=== PATIENT | female | born 1955 | race Caucasian/White ===

== ENCOUNTER → 2016-05-01 | Outpatient (CLI) | payer OTHER ==
--- NOTE | 2016-05-02 07:15 | WWHP ---
DATE OF SERVICE: 05/01/2016 CHIEF COMPLAINT: The patient is here for her routine gynecologic exam and mammogram. HPI: This is a 60-year-old, G2, P2 with an LMP of approximately 1999. The patient states it has been about 15 years since her last pelvic exam. She denies any postmenopausal bleeding. She has been experiencing slight dysuria with some urinary frequency and some urinary urgency over the past few days. She states the symptoms are not very severe. PAST MEDICAL HISTORY: COPD requiring oxygen and osteoporosis. MEDICATIONS: 1. Boniva one monthly. 2. Metoprolol tartrate 25 mg b.i.d. 3. Bupropion SR 150 mg b.i.d. 4. Montelukast 10 mg daily. 5. Alprazolam 0.25 mg q.i.d. p.r.n. 6. Brovana inhaler b.i.d. 7. Budesonide inhaler b.i.d. 8. Ipratropium inhaler b.i.d. 9. Boniva one q month 10. Spiriva, ProAir as directed. 11. Prednisone 5 mg every other day. Allergies to PENICILLIN which caused hives. PAST SURGICAL HISTORY: Appendectomy years ago, colonoscopy many years ago. PAST OB HISTORY: Two vaginal deliveries. PAST SHIELD RUNNER HISTORY: She has been menopausal since 1999 and has no history of STDs. SOCIAL HISTORY: She quit smoking in 12/07. She denies alcohol and drug use. She has been twice and is not seeing anybody at this time. 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 She has one granddaughter. FAMILY HISTORY: Father had lung cancer. Mother had breast cancer. Grandfather had colon cancer. Father had an RI. REVIEW OF SYSTEMS: Weight has been stable. She denies respiratory, cardiac or GI problems. : She has been experiencing dysuria, urinary frequency and urgency as above. PHYSICAL EXAM: Blood pressure 92/50. Height 5 feet 2 inches. Weight 116 pounds. Temperature 98.2, pulse 56. This a well-developed, well-nourished white female who is alert and oriented x3 in no acute distress and she does have nasal cannula oxygen. HEENT is within normal limits. NECK: Supple without mass or thyromegaly. CHEST AND LUNGS: Clear to auscultation. HEART: Regular rate and rhythm. Breasts are without mass or discharge. Axillary exam is negative for adenopathy. BACK: Negative for CVA tenderness. ABDOMEN: There is slight increased tone, but the abdomen is nondistended and there are no palpable masses. PELVIC EXAM: External genitalia reveals moderate atrophy without lesions. Cervix and vagina reveal some mild to moderate atrophy without lesions. There is no evidence of prolapse. The uterus is midposition, nongravid size and nontender. There are no palpable adnexal masses or tenderness. Rectovaginal exam is negative for mass or tenderness and is negative for occult blood. EXTREMITIES: Nontender. IMPRESSION: 1. A 60-year-old menopausal female with normal gynecologic exam. 2. Urinary symptoms including mild dysuria, urinary frequency and urgency. Possible urinary tract infection. 3. History of osteoporosis. 4. History of chronic obstructive pulmonary disease requiring oxygen and multiple medications. PLAN: 1. Pap smear was performed. 2. Self breast examination was discussed. 3. Mammogram will be done today. 4. Clean-catch midstream urinalysis and C&S were obtained. 5. I have recommended screening colonoscopy based on her age and she is declining this. 6. Osteoporosis management was discussed. I have stressed the importance of adequate calcium, vitamin D and regular exercise. She will continue the Boniva as prescribed by her other physician. 7. She will return in one year. [place]
--- NOTE | 2016-05-03 10:05 | MM ---
Reason for exam: screening (asymptomatic). Last mammogram was performed 1 year ago. History: Patient is postmenopausal. Family history of breast cancer in mother. Excisional biopsy of the left breast. Physical Findings: A clinical breast exam by your physician is recommended on an annual basis and results should be correlated with mammographic findings. MG 3D Screening Mammo W/Cad Bilateral CC and MLO view(s) were taken. Prior study comparison: April 21, 2015, bilateral MG screening mammo w CAD. The breast tissue is heterogeneously dense. This may lower the sensitivity of mammography. Two areas of nodular asymmetry right CC view seem to have been present on prior but are more defined, probably on a positional basis. A 6 month follow up recommended. ASSESSMENT: Probably benign, BI-RAD 3 RECOMMENDATION: Follow-up diagnostic mammogram of the right breast in 6 months.
== END | disposition home or self-care (01) ==
LOC: WWCWWP 14:19
PROVIDERS: ATTEND Obstetrics & Gynecology
DX: Z12.31 Encounter for screening mammogram for malignant neoplasm of breast (principal)
CPT/HCPCS: 77063; G0202

== ENCOUNTER → 2016-07-11 | Outpatient (CLI) | payer OTHER ==
--- NOTE | 2016-07-11 15:29 | CT ---
EXAMINATION TYPE: CT chest wo con DATE OF EXAM: 07/11/2016 2:50 PM COMPARISON: CT chest November 09, [address] April 14, 2015 HISTORY: Follow-up for COPD and solitary pulmonary nodule per order. CT DLP: 113.70 mGycm. Automated Exposure Control for Dose Reduction was Utilized. TECHNIQUE: CT scan of the thorax is performed without IV contrast. FINDINGS: LUNGS: Moderate underlying emphysematous changes redemonstrated. There is persistent linear scarring in the right upper to midlung near axial image 29 redemonstrated. There is additional linear scarring in bilateral lung bases near diaphragm. There is stable 4 mm subpleural nodule in the right lower lo be posteriorly on axial image 53. No new parenchymal nodule or mass is identified bilaterally. No ple ural effusion or pneumothorax is seen. Tracheobronchial tree is patent. MEDIASTINUM: Lack of IV contrast is noted to limit evaluation for mediastinal and especially hilar ad enopathy. There are no definitive greater than 1 cm hilar or mediastinal lymph nodes. No cardiomega ly or pericardial effusion is seen. Coronary artery calcification is present. There is mild to modera te calcified plaque of the aorta extending into branch vessels. There is new moderate sized debris-fi lled hiatal hernia. OTHER: Osseous structures are demineralized. Mild height loss or chronic compression type fracture at T11 level most prominent superior endplate is stable. Heterogeneously dense fibroglandular tissue in both breasts is redemonstrated. Stable subcentimeter hypodense focus anteriorly upper pole level lef t kidney favors proteinaceous cyst on axial image 64. IMPRESSION: Moderate emphysematous change redemonstrated. Stable 4 mm subpleural nodule posterior lat eral right lower lobe strongly favoring postinflammatory etiology. No new mass or adenopathy is prese nt.
== END | disposition home or self-care (01) ==
LOC: RADCTMAIN 14:37
PROVIDERS: ATTEND Internal Medicine Sleep Medicine
DX: R91.1 Solitary pulmonary nodule (principal); J43.9 Emphysema, unspecified
CPT/HCPCS: 71250

== ENCOUNTER 2016-09-03 14:59 | Inpatient (IN) | payer OTHER ==
[2016-09-03] MEDS ORDERED: SODIUM CHLORIDE 0.9% 1,000 ML IV STA ×2 (16:16)
[2016-09-03] MEDS ORDERED: methylPREDNISolone SOD SUCCI 125 MG/2 ML VIAL IV STA (16:16)
[2016-09-03] MEDS ORDERED: IPRATROPIUM 0.5 MG/2.5 ML NEBU INHALATION STA (16:16)
[2016-09-03] MEDS ORDERED: ALBUTEROL NEBULIZED 2.5 MG/3 ML INHALATION STA ×2 (16:16→16:35)
[2016-09-03] MEDS ORDERED: LEVOFLOXACIN 750MG-D5W PMX 750 MG in DEXTROSE/WATER 1 150ML.BAG IVPB STA (16:16)
[2016-09-03] MEDS ORDERED: IPRATROPIUM-ALBUTEROL 3 ML NEB INHALATION STA (16:34)
[2016-09-03 16:39] LABS: Basophils # (A) 0.1 k/uL (0-0.2); Basophils % (A) 0 %; CH 31.8; CHCM 34.6; Eosinophils # (A) 0.2 k/uL (0-0.7); Eosinophils % (A) 1 %; HCT 39.8 % (34.0-46.0); HDW 2.59; HGB 13.7 gm/dL (11.4-16.0); Luc % (Auto) 3; Lymphocytes # (A) 2.4 k/uL (1.0-4.8); Lymphocytes % (A) 17 %; MCH 31.8 pg (25.0-35.0); MCHC 34.4 g/dL (31.0-37.0); MCV 92.3 fL (80.0-100.0); Mean Platelet Volume 7.4; Monocytes # (A) 0.7 k/uL (0-1.0); Monocytes % (A) 5 %; Neutrophils # (A) 10.4 k/uL (1.3-7.7); Neutrophils % (A) 74 %; RBC 4.31 m/uL (3.80-5.40); RDW 13.5 % (11.5-15.5); WBC 14.1 k/uL (3.8-10.6); WBC (Perox) 13.99
--- NOTE | 2016-09-03 16:44 | ED ---
General Adult HPI - General Chief complaint: Shortness of Breath Stated complaint: poss upper respiratory infection Time Seen by Provider: 09/03/16 16:00 Source: patient, RN notes reviewed, old records reviewed Mode of arrival: wheelchair Limitations: no limitations - History of Present Illness Initial comments: This is a 61-year-old female here for evaluation of shortness of breath cough and congestion. Severe history of COPD with multiple hospital admissions for COPD and pneumonia, patient denies continuing to smoke, was admitted for COPD and pneumonia about 4 months ago. Patient has low-grade fever at home no chest pain. No travel history no known sick contacts - Related Data Home Medications Medication Instructions Recorded Confirmed Tiotropium [place] [Spiriva 1 cap INHALATION RT-DAILY 12/11/14 09/03/16 Respimat] Arformoterol Tartrate [Brovana] 15 mcg INHALATION RT-BID 04/14/15 09/03/16 buPROPion SR [Wellbutrin Sr] 150 mg PO BID 04/14/15 09/03/16 Albuterol Nebulized [Ventolin 2.5 mg INHALATION RT-BID 05/02/15 09/03/16 Nebulized] ALPRAZolam [Xanax] 0.25 mg PO QID PRN 09/03/16 09/03/16 Albuterol Inhaler [Ventolin Hfa 1 - 2 puff INHALATION RT-QID PRN 09/03/16 Inhaler] Metoprolol Tartrate 25 mg PO BID 09/03/16 09/03/16 predniSONE 5 mg PO Q48H 09/03/16 09/03/16 Previous Rx's Medication Instructions Recorded Budesonide [Pulmicort] 0.5 mg INHALATION RT-BID nebu 12/17/14 Montelukast [Singulair] 10 mg PO HS tab 12/17/14 Allergies Allergy/AdvReac Type Severity Reaction Status Date / Time Penicillins Allergy Rash/Hives Verified 09/03/16 16:31 Review of Systems ROS Statement: Those systems with pertinent positive or pertinent negative responses have been documented in the HPI. ROS Other: All systems not noted in ROS Statement are negative. Past Medical History Past Medical History: COPD, Pneumonia Additional Past Medical History / Comment(s): HOME 02 2 LITERS N/C History of Any Multi-Drug Resistant Organisms: None Reported Past Surgical History: Appendectomy Past Anesthesia/Blood Transfusion Reactions: No Reported Reaction Past Psychological History: Anxiety Smoking Status: Former smoker Past Alcohol Use History: None Reported Additional Past Alcohol Use History / Comment(s): HAS SMOKED X 40 YEARS 2 PPD, QUIT Past Drug Use History: None Reported - Past Family History Mother Family Medical History: Cancer Additional Family Medical History / Comment(s): breast/BLADDER CA Father Family Medical History: Cancer Additional Family Medical History / Comment(s): lung ca, BRAIN TUMORS General Exam Limitations: no limitations General appearance: cachectic Head exam: Present: atraumatic, normocephalic, normal inspection Eye exam: Present: normal appearance, PERRL, EOMI. Absent: scleral icterus, conjunctival injection, periorbital swelling ENT exam: Present: normal exam, mucous membranes moist Neck exam: Present: normal inspection. Absent: tenderness, meningismus, lymphadenopathy Respiratory exam: Present: normal lung sounds bilaterally, wheezes, accessory muscle use, decreased breath sounds, prolonged expiratory. Absent: respiratory distress, rales, rhonchi, stridor Cardiovascular Exam: Present: regular rate, normal rhythm, normal heart sounds. Absent: systolic murmur, diastolic murmur, rubs, gallop, clicks GI/Abdominal exam: Present: soft, normal bowel sounds. Absent: distended, tenderness, guarding, rebound, rigid Extremities exam: Present: normal inspection, full ROM, normal capillary refill. Absent: tenderness, pedal edema, joint swelling, calf tenderness Back exam: Present: normal inspection Neurological exam: Present: alert, oriented X3, CN II-XII intact Psychiatric exam: Present: normal affect, normal mood Skin exam: Present: warm, dry, intact, normal color. Absent: rash Course Vital Signs 09/03/16 09/03/16 09/03/16 15:18 16:08 16:21 Temperature 100.0 F H 100.1 F H Pulse Rate 85 81 Respiratory 24 22 16 Rate Blood Pressure 130/66 137/62 O2 Sat by Pulse 90 L 95 Oximetry 09/03/16 16:38 Temperature Pulse Rate 73 Respiratory Rate Blood Pressure O2 Sat by Pulse Oximetry - Reevaluation(s) Reevaluation #1: 09/03/16 16:44 Patient is having significant improvement with breathing Medical Decision Making - Medical Decision Making 60 dizziness ER for evaluation of severe shortness of breath cough or congestion , COPD exacerbation we'll admit for breathing treatments and monitoring of cardiopulmonary status - Radiology Data Radiology results: report reviewed (Chest x-ray negative for acute disease), image reviewed Disposition Clinical Impression: COPD exacerbation, Acute exacerbation of chronic obstructive airways disease Disposition: ADMITTED IP TO THIS HOSP Condition: Fair Referrals: Kurtis Piña MD [Primary Care Provider] - 1-2 days
[2016-09-03 16:47] LABS: Partial Thromboplastin Time 25.3 sec (22.0-30.0); Prothrombin Time 10.1 sec (9.0-12.0)
[2016-09-03 16:51] LABS: ALT 21 U/L (9-52); AST 20 U/L (14-36); Alkaline Phosphatase 70 U/L (38-126); Anion Gap 10 mmol/L; Blood Urea Nitrogen 17 mg/dL (7-17); Calcium 9.3 mg/dL (8.4-10.2); Carbon Dioxide 26 mmol/L (22-30); Chloride 101 mmol/L (98-107); Glucose 91 mg/dL (74-99); Magnesium 1.6 mg/dL (1.6-2.3); Non-African American GFR(MDRD) >60 (>60 ml/min/1.73 sqM); Potassium 4.2 mmol/L (3.5-5.1); Sodium 137 mmol/L (137-145); Total Bilirubin 0.8 mg/dL (0.2-1.3); Total Protein 6.6 g/dL (6.3-8.2)
[2016-09-03 17:02] LABS: Creatine Kinase 40 U/L (30-135)
[2016-09-03 17:16] LABS: Creatine Kinase MB 0.8 ng/mL (0.0-2.4); Troponin I <0.012 ng/mL (0.000-0.034)
--- NOTE | 2016-09-03 18:02 | XR ---
EXAMINATION TYPE: XR chest 2V DATE OF EXAM: 09/03/2016 COMPARISON: May 04, 2015 HISTORY: Off and congestion TECHNIQUE: Frontal and lateral views of the chest are obtained. FINDINGS: There is redemonstration of the marked emphysematous changes, but no acute pulmonary proce ss is evident. Lungs appear clear bilaterally. Pleural spaces are negative. Cardiomediastinal silhouette and bones and soft tissues are unremarkable. IMPRESSION: No acute process.
[2016-09-03] MEDS: methylPREDNISolone SOD SUCCI 125 MG/2 ML VIAL IV SCH ×2 (18:54→23:40)
[2016-09-03] MEDS: SODIUM CHLORIDE 0.9% 1,000 ML IV SCH (18:54)
[2016-09-03] MEDS ORDERED: ONDANSETRON 4 MG/2 ML VIAL IVP PRN (19:56)
[2016-09-03] MEDS ORDERED: ACETAMINOPHEN TAB 325 MG TAB PO PRN (19:56)
[2016-09-03] MEDS: MONTELUKAST 10 MG TAB PO SCH (20:28)
[2016-09-03] MEDS: buPROPion SR 150 MG TABLET.ER PO SCH (20:28)
[2016-09-03] MEDS: INSULIN LISPRO (humaLOG) 300 UNIT/3 ML VIAL SQ SCH (20:28)
[2016-09-03] MEDS: METOPROLOL TARTRATE 25 MG TAB PO SCH (20:28)
[2016-09-03 20:31] LABS: Glucose,Whole Blood 195 mg/dL (75-99)
[2016-09-03] MEDS: FORMOTEROL FUMARATE 20 MCG/2 ML NEBU INHALATION SCH (20:32)
[2016-09-03] MEDS: IPRATROPIUM-ALBUTEROL 3 ML NEB INHALATION PRN (20:32)
[2016-09-03] MEDS: BUDESONIDE 0.5 MG/2 ML NEBU INHALATION SCH (20:32)
[2016-09-03] MEDS: ALPRAZolam 0.25 MG TAB PO PRN (20:37)
[2016-09-04] MEDS: SODIUM CHLORIDE 0.9% 1,000 ML IV SCH ×3 (02:31→21:41)
[2016-09-04] MEDS: ALPRAZolam 0.25 MG TAB PO PRN ×4 (02:31→20:57)
[2016-09-04] MEDS: IPRATROPIUM-ALBUTEROL 3 ML NEB INHALATION PRN ×5 (03:10→19:03)
[2016-09-04] MEDS: methylPREDNISolone SOD SUCCI 125 MG/2 ML VIAL IV SCH ×3 (06:21→17:50)
[2016-09-04] MEDS: TIOTROPIUM 18 MCG/PUFF INHALER INHALATION SCH (07:19)
[2016-09-04] MEDS: BUDESONIDE 0.5 MG/2 ML NEBU INHALATION SCH ×2 (07:19→19:03)
[2016-09-04] MEDS: FORMOTEROL FUMARATE 20 MCG/2 ML NEBU INHALATION SCH ×2 (07:19→19:03)
[2016-09-04 07:42] LABS: Glucose,Whole Blood 153 mg/dL (75-99)
[2016-09-04] MEDS: ENOXAPARIN 40 MG/0.4 ML SYRINGE SQ SCH (08:09)
[2016-09-04] MEDS: METOPROLOL TARTRATE 25 MG TAB PO SCH ×2 (08:09→20:57)
[2016-09-04] MEDS: buPROPion SR 150 MG TABLET.ER PO SCH ×2 (08:09→20:57)
[2016-09-04] MEDS: INSULIN LISPRO (humaLOG) 300 UNIT/3 ML VIAL SQ SCH ×4 (08:09→20:59)
[2016-09-04] MEDS ORDERED: TEMAZEPAM 15 MG CAP PO PRN (08:46)
--- NOTE | 2016-09-04 08:51 | P.HPIM ---
History of Present Illness H&P Date: 09/04/16 Chief Complaint: Worsening shortness of breath. This is a history and physical on a 61-year-old white female, who has not seen me for about a year and a half but has an underlying history of COPD. The patient has been having difficulty breathing for the last several days. She does follow up with Dr. 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 We will verify this with her old record. Otherwise, she has difficulty with dyspnea and had difficulty sleeping last night. No voiding difficulties. No significant orthopnea or paroxysmal shortness of breath stated last night. Review of Systems Constitutional: Denies chills, Denies fever Eyes: denies blurred vision, denies pain Ears, nose, mouth and throat: Denies headache, Denies sore throat Cardiovascular: Denies chest pain, Denies shortness of breath Respiratory: Reports as per HPI Gastrointestinal: Denies abdominal pain, Denies diarrhea, Denies nausea, Denies vomiting Genitourinary: Denies dysuria, Denies hematuria Musculoskeletal: Denies myalgias Past Medical History Past Medical History: COPD, Osteoarthritis (OA), Pneumonia Additional Past Medical History / Comment(s): HOME 02 2 LITERS N/C, UTI-ECOLI, EDENTULOUS, PAST FX TO A VERTEBRE-SINCE HEALED History of Any Multi-Drug Resistant Organisms: None Reported Past Surgical History: Appendectomy Additional Past Surgical History / Comment(s): LASER EYE SX Past Anesthesia/Blood Transfusion Reactions: No Reported Reaction Past Psychological History: Anxiety Additional Psychological History / Comment(s): PT LIVES WITH HER DAUGHER IN A SINGLE LEVEL HOME THAT HAS 4 PORCH STEPS AND A BASEMENT W/12 STEPS. NO OUTSIDE SERVICES RECIEVED. HAS HOME O2 AND A NEBULIZER. PT IS INDEPENDANT WHEN UP. 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 Smoking Status: Former smoker Past Alcohol Use History: None Reported Additional Past Alcohol Use History / Comment(s): STARTED SMOKING AROUND 1976- 2 PPD, QUIT . Past Drug Use History: None Reported - Past Family History Mother Family Medical History: Cancer Additional Family Medical History / Comment(s): breast/BLADDER CA Father Family Medical History: Cancer Additional Family Medical History / Comment(s): lung ca, BRAIN TUMORS Medications and Allergies Home Medications Medication Instructions Recorded Confirmed Type Tiotropium [place] [Spiriva 1 cap INHALATION RT-DAILY 12/11/14 09/03/16 History Respimat] Arformoterol Tartrate [Brovana] 15 mcg INHALATION RT-BID 04/14/15 09/03/16 History buPROPion SR [Wellbutrin Sr] 150 mg PO BID 04/14/15 09/03/16 History Albuterol Nebulized [Ventolin 2.5 mg INHALATION RT-BID 05/02/15 09/03/16 History Nebulized] ALPRAZolam [Xanax] 0.25 mg PO QID PRN 09/03/16 09/03/16 History Albuterol Inhaler [Ventolin Hfa 1 - 2 puff INHALATION RT-QID PRN 09/03/16 History Inhaler] Metoprolol Tartrate 25 mg PO BID 09/03/16 09/03/16 History predniSONE 5 mg PO Q48H 09/03/16 09/03/16 History Allergies Allergy/AdvReac Type Severity Reaction Status Date / Time Penicillins Allergy Rash/Hives Verified 09/03/16 16:31 Physical Exam Vitals: Vital Signs Temp Pulse Pulse Resp BP BP BP 09/04/16 07:51 92 09/04/16 07:39 90 09/04/16 07:37 92 09/04/16 07:21 98 09/04/16 07:00 96.8 F L 89 22 108/57 09/04/16 03:10 100 09/03/16 22:32 97.0 F L 79 18 115/71 09/03/16 20:54 92 09/03/16 20:46 90 09/03/16 20:45 90 09/03/16 20:36 89 09/03/16 18:36 97.6 F 94 16 124/76 09/03/16 17:26 98.6 F 84 16 115/54 09/03/16 16:38 73 09/03/16 16:21 100.1 F H 81 16 137/62 09/03/16 16:08 22 09/03/16 15:18 100.0 F H 85 24 130/66 Pulse Ox 09/04/16 07:51 09/04/16 07:39 09/04/16 07:37 99 09/04/16 07:21 09/04/16 07:00 99 09/04/16 03:10 09/03/16 22:32 98 09/03/16 20:54 09/03/16 20:46 09/03/16 20:45 09/03/16 20:36 09/03/16 18:36 96 09/03/16 17:26 99 09/03/16 16:38 09/03/16 16:21 95 09/03/16 16:08 09/03/16 15:18 90 L Intake and Output 09/03/16 09/04/16 09/04/16 22:59 06:59 14:59 Intake Total 500 500 Balance 500 500 Intake: Oral 500 500 Other: # Voids 1 2 Weight 53.07 kg - Constitutional General appearance: no acute distress - EENT Eyes: EOMI - Neck Neck: no lymphadenopathy - Respiratory Respiratory: bilateral: diminished - Cardiovascular Rhythm: regular Heart sounds: normal: S1, S2 - Gastrointestinal General gastrointestinal: soft, no tenderness - Integumentary Integumentary: no cellulitis - Psychiatric Psychiatric: A&O x's 3, appropriate affect Results CBC & Chem 7: 09/03/16 15:15 09/03/16 15:15 Labs: Abnormal Lab Results - Last 24 Hours (Table) 09/03/16 09/03/16 09/04/16 Range/Units 15:15 20:27 07:10 WBC 14.1 H (3.8-10.6) k/uL Neutrophils # 10.4 H (1.3-7.7) k/uL POC Glucose (mg/dL) 195 H 153 H (75-99) mg/dL Thrombosis Risk Factor Assmnt - Choose All That Apply Any of the Below Risk Factors Present?: Yes Each Factor Represents 1 point: Abnormal pulmonary function (COPD) Other Risk Factors: Yes Each Risk Factor Represents 2 Points: Age 61-74 years Other congenital or acquired thrombophilia - If yes, enter type in comment: No Thrombosis Risk Factor Assessment Total Risk Factor Score: 3 Thrombosis Risk Factor Assessment Level: Moderate Risk Assessment and Plan (1) Acute exacerbation of chronic obstructive airways disease Status: Acute Plan: We'll go ahead and continue methylprednisone. Consult pulmonology. Restart Levaquin 500 mg by mouth daily. Otherwise, reconcile home medications. The patient states that she takes Boniva. Check CBC, CMP in a.m. See orders otherwise. Time with Patient: Greater than 30
[2016-09-04] MEDS ORDERED: LEVOFLOXACIN 500 MG TAB PO SCH (09:00)
[2016-09-04 11:09] LABS: Hemoglobin A1C 5.9 % (4.2-6.1)
[2016-09-04 12:12] LABS: Glucose,Whole Blood 151 mg/dL (75-99)
[2016-09-04 17:04] LABS: Glucose,Whole Blood 136 mg/dL (75-99)
--- NOTE | 2016-09-04 19:12 | CONS ---
DATE OF CONSULTATION: 09/04/2016 REASON FOR CONSULTATION: Shortness of breath, cough and purulent sputum production. HISTORY OF PRESENT ILLNESS: The patient is a 61 -year-old female who was seen, evaluated and examined on the fourth floor. This patient presented in the Emergency Room Department with increasing shortness of breath, cough and congestion. With those problems which started about several days prior to coming into the hospital. The patient does have history of pneumonia and COPD exacerbation about four months ago. These problems associated with breathing difficulty, came into the Emergency Room Department and was eventually admitted. The patient has chronic hypoxic respiratory failure and has been on home oxygen. PAST MEDICAL HISTORY: Significant for severe COPD, chronic hypoxic respiratory failure, on home oxygen 2 L, history of pneumonia. PAST SURGICAL HISTORY :Appendectomy. FAMILY HISTORY/SOCIAL HISTORY: Smoked two packs per day for about 40 years, still smoking off and on. Denies any substance use or alcohol consumption. ALLERGIES: INCLUDE PENICILLIN. MEDICATIONS: At home include: 1. Singulair 10 mg daily. 2. Pulmicort 0.5 two times a day via nebulizer. 3. Prednisone 5 mg every other day. 4. Metoprolol 25 mg two times a day. 5. Albuterol HFA as needed two puffs four times a day. 6. Ventolin nebulizer four times a day. 7. Brovana 15 mcg two times a day. 8. ( ) 150 mg two times a day. 9. Spiriva once daily. REVIEW OF SYSTEMS: CENTRAL NERVOUS SYSTEM: Denies any loss of consciousness or ( ). CARDIOVASCULAR/RESPIRATORY: Otherwise unremarkable and noncontributory. GI/ GENITOURINARY: Unremarkable and noncontributory. MUSCULOSKELETAL/RHEUMATOLOGY: Unremarkable and noncontributory. FAMILY HISTORY: Significant for breast cancer, bladder cancer on maternal side. History of lung cancer, brain tumor on paternal side. Current medications while in the hospital includes: 1. Tylenol as needed. 2. Duoneb unit dose updraft four times a day. 3. Xanax as needed. 4. Pulmicort two times a day. 5. Wellbutrin 150 mg two times a day. 6. Lovenox 40 mg daily. 7. Perforomist 20 mcg two times a day. 8. Sliding scale insulin. 9. Solu-Medrol 60 q6h. 10. Lopressor 25 mg b.i.d. 11. Singulair 10 mg daily. 12. IV fluids normal saline 100 mL an hour. 13. Restoril 15 mg daily. 14. Spiriva once daily. 15. Bactrim DS one tablet p.o. two times a day switched from Levaquin due to her problems with burning and during infusion. On examination, most recent vital signs include: Blood pressure 110/60, respiratory rate 20, pulse 87, temperature 97, saturation 92% on 2 L oxygen. HEENT: Atraumatic, normocephalic. Pharynx clear. Narrow pharyngeal opening is present. NECK: Supple without lymphadenopathy. No jugular venous distention, carotid bruit. LUNGS: Poor air entry present without rales, rhonchi or rub. HEART: Regular rate and rhythm, S1, S2 audible. ABDOMEN: soft, no rebound or rigidity. EXTREMITIES : +1 peripheral pulses. NEUROLOGICAL: Otherwise awake and alert. Labs reviewed. Medications are reviewed as well. White cell count 14,000, hemoglobin 13, hematocrit 39, platelet count 195,000. PT/INR within normal limits. Sodium 137, potassium 4.2, BUN 17, creatinine 0.68. Lactic acid is 4. Chemistry otherwise is within normal limits. IMPRESSION: 1. Purulent tracheobronchitis and acute chronic obstructive pulmonary disease exacerbation. 2. Chronic hypoxic respiratory failure. 3. Severe chronic obstructive pulmonary disease, baseline associated with which is oxygen dependent and Prednisone dependent. 4. Leukocytosis likely related to chronic steroid use as well as some component from chronic obstructive pulmonary disease exacerbation and tracheobronchitis. 5. Elevated Lactic acid levels likely related to dehydration and intravascular volume depletion and early sepsis. We will continue to rehydrate. Repeat labs tomorrow. 6. Other issues include: Hypertension, hypertensive cardiovascular disease, generalized anxiety disorder, chronic insomnia. We will monitor and observe on current medications.
[2016-09-04] MEDS: SULFAMETHOX-TMP 800-160MG 1 EACH TAB PO SCH (20:57)
[2016-09-04 20:59] LABS: Glucose,Whole Blood 229 mg/dL (75-99)
[2016-09-04] MEDS: MONTELUKAST 10 MG TAB PO SCH (21:40)
[2016-09-05] MEDS: methylPREDNISolone SOD SUCCI 125 MG/2 ML VIAL IV SCH ×4 (00:16→17:26)
[2016-09-05] MEDS: ALPRAZolam 0.25 MG TAB PO PRN ×3 (03:29→15:25)
[2016-09-05] MEDS: IPRATROPIUM-ALBUTEROL 3 ML NEB INHALATION PRN ×2 (05:04→07:09)
[2016-09-05] MEDS: FORMOTEROL FUMARATE 20 MCG/2 ML NEBU INHALATION SCH ×2 (07:09→20:07)
[2016-09-05] MEDS: BUDESONIDE 0.5 MG/2 ML NEBU INHALATION SCH ×2 (07:09→20:07)
[2016-09-05] MEDS: TIOTROPIUM 18 MCG/PUFF INHALER INHALATION SCH ×3 (07:09→20:07)
[2016-09-05 07:29] LABS: Glucose,Whole Blood 145 mg/dL (75-99)
[2016-09-05] MEDS: METOPROLOL TARTRATE 25 MG TAB PO SCH ×2 (07:47→21:39)
[2016-09-05] MEDS: ENOXAPARIN 40 MG/0.4 ML SYRINGE SQ SCH (07:47)
[2016-09-05] MEDS: INSULIN LISPRO (humaLOG) 300 UNIT/3 ML VIAL SQ SCH ×4 (07:47→21:40)
[2016-09-05] MEDS: buPROPion SR 150 MG TABLET.ER PO SCH ×2 (07:47→21:39)
[2016-09-05] MEDS: SULFAMETHOX-TMP 800-160MG 1 EACH TAB PO SCH ×2 (07:47→21:39)
[2016-09-05] MEDS: SODIUM CHLORIDE 0.9% 1,000 ML IV SCH ×2 (08:11→08:56)
[2016-09-05 08:34] LABS: ALT 35 U/L (9-52); AST 26 U/L (14-36); Alkaline Phosphatase 61 U/L (38-126); Anion Gap 10 mmol/L; Blood Urea Nitrogen 18 mg/dL (7-17); CH 31.3; CHCM 33.4; Carbon Dioxide 23 mmol/L (22-30); Chloride 109 mmol/L (98-107); Glucose 146 mg/dL (74-99); HCT 36.1 % (34.0-46.0); HDW 2.64; HGB 11.7 gm/dL (11.4-16.0); MCH 30.6 pg (25.0-35.0); MCHC 32.4 g/dL (31.0-37.0); MCV 94.4 fL (80.0-100.0); Mean Platelet Volume 7.3; Non-African American GFR(MDRD) >60 (>60 ml/min/1.73 sqM); RBC 3.83 m/uL (3.80-5.40); RDW 13.7 % (11.5-15.5); Sodium 142 mmol/L (137-145); Total Bilirubin 0.4 mg/dL (0.2-1.3); Total Protein 6.3 g/dL (6.3-8.2); WBC 17.8 k/uL (3.8-10.6)
[2016-09-05] MEDS ORDERED: DRY MOUTH SPRAY 44.3 SPRAY/44.3 ML SPRAY MUCOUS MEM PRN (08:51)
[2016-09-05] MEDS: LORATADINE 10 MG TAB PO SCH (09:43)
--- NOTE | 2016-09-05 10:23 | P.PN ---
Subjective This is a 59-year-old 1-year-old female patient is being seen, evaluated and examined today on the fourth floor. This patient presented to the emergency room department with increasing shortness of breath, cough and congestion over the last several days that had been increasing in severity. Patient does have a history of recurrent pneumonias and COPD exacerbations about 4 months ago. Patient does have a known history of chronic hypoxic respiratory failure and is on 2 L of home oxygen. Upon examination the patient is resting up in bed on 3 L of supplemental oxygen she continues to have shortness of breath with any activity or exertion as well as conversation. Patient does have a productive cough with brown sputum. Objective - Vital Signs Vital signs: Vital Signs Temp 97.2 F L 09/05/16 07:00 Pulse 89 09/05/16 07:33 Resp 16 09/05/16 07:00 BP 137/72 09/05/16 07:00 Pulse Ox 96 09/05/16 07:10 Intake & Output 09/04/16 09/05/16 09/05/16 18:59 06:59 18:59 Intake Total 480 Balance 480 Intake: Oral 480 Other: Voiding Method Toilet # Voids 2 4 - Exam GENERAL EXAM: Alert, active, comfortable in no apparent distress. HEAD: Normocephalic. EYES: Normal reaction of pupils, equal size. NOSE: Clear with pink turbinates. THROAT: No erythema or exudates. NECK: No masses, no JVD. CHEST: No chest wall deformity. LUNGS: Poor air entry with no crackles, wheeze, rhonchi or dullness. Bases diminished CVS: S1 and S2 normal with no audible mumurs, regular rhythm. ABDOMEN: No hepatosplenomegaly, normal bowel sounds, no guarding or rigidity. EXTREMITIES: No edema noted, pedal pulses palpable. SKIN: No rashes CENTRAL NERVOUS SYSTEM: No focal deficits, tone is normal in all 4 extremities. - Labs CBC & Chem 7: 09/05/16 08:06 09/05/16 08:06 Labs: Abnormal Lab Results - Last 24 Hours (Table) 09/04/16 09/04/16 09/04/16 Range/Units 10:20 12:11 17:01 WBC (3.8-10.6) k/uL Chloride (98-107) mmol/L BUN (7-17) mg/dL Glucose (74-99) mg/dL POC Glucose (mg/dL) 151 H 136 H (75-99) mg/dL Plasma Lactic Acid Jordy 4.0 H* (0.7-2.0) mmol/L 09/04/16 09/05/16 09/05/16 Range/Units 20:57 07:08 08:06 WBC 17.8 H (3.8-10.6) k/uL Chloride (98-107) mmol/L BUN (7-17) mg/dL Glucose (74-99) mg/dL POC Glucose (mg/dL) 229 H 145 H (75-99) mg/dL Plasma Lactic Acid Jordy (0.7-2.0) mmol/L 09/05/16 Range/Units 08:06 WBC (3.8-10.6) k/uL Chloride 109 H (98-107) mmol/L BUN 18 H (7-17) mg/dL Glucose 146 H (74-99) mg/dL POC Glucose (mg/dL) (75-99) mg/dL Plasma Lactic Acid Jordy (0.7-2.0) mmol/L Microbiology - Last 24 Hours (Table) 09/04/16 17:00 Urine Culture - Preliminary Urine,Voided 09/03/16 15:15 Blood Culture - Preliminary Blood No Growth after 24 hours Assessment and Plan Plan: Assessment Purulent tracheobronchitis and acute exacerbation of chronic obstructive pulmonary disease Acute on Chronic hypoxic respiratory failure Severe chronic obstructive pulmonary disease Leukocytosis likely related to chronic steroid use Elevated lactic acid levels likely related to dehydration and intravascular volume depletion and possible early sepsis Hypertension, hypertensive cardiovascular disease Generalized anxiety disorder Chronic insomnia Plan Medications have been reviewed and will be continued as ordered. Continue with pulmonary hygiene, coughing and deep breathing exercises, and supportive care. Supplemental oxygen to maintain oxygen saturations of 90% or better. Continue with rehydration. We will obtain sputum cultures. Initiate and encourage incentive spirometer. Continue nebulizer treatments. GI and DVT prophylaxis. We will continue to monitor labs/results and adjust treatment as necessary. Further recommendations pending. I performed an examination of the patient and discussed their management with the nurse practitioner. I have reviewed the nurse practitioner's note and agree with the documented findings and plan of care.
--- NOTE | 2016-09-05 10:37 | CDI ---
In responding to this query, please exercise your independent professional judgment. The [facility] Coding Staff and Clinical Documentation Specialists appreciate your assistance in clarifying documentation, maintaining compliance with coding guidelines, accurately documenting patients condition and capturing severity of illness. The fact that a question is asked does not imply that any particular answer is desired or expected. Communication forms are a method of clarifying documentation and are not made part of the Legal Health Record. Thank you in advance for your clarification. Last Revision, June 2016 Elana Lux [address] [facility] [place] [address] Documentation Clarification Form Date: 09/05/2016 10:25:00 AM From: Aleida Aleman CCS, CCDS Admit Date: 09/03/2016 4:38:00 PM Patient Name: Rohit Anaya Visit Number: [id number] Discharge Date: Dr. Enrico Gudino: Per the pulmonary consult impression: Purulent tracheobronchitis and acute COPD exacerbation. Chronic hypoxic respiratory failure, ...O2 dep & Prednisone dependent, Leukocytosis likely related to chronic steroid use as well as some component from COPD exacerbation & tracheobronchitis. Elevated lactic acid levels likely related to dehydration & intravascular volume depletion & early sepsis. History/Risk Factors: COPD exacerbations and pneumonia, chronic hypoxic respiratory failure, home O2 dependent. Clinical Indicators: Presented with SOB, cough & purulent sputum production. WBC/Left Shift: WBC 14.1, Neutrophils 10.4 Lactic acid: 4.0 Blood cultures: Negative @ 24 hrs, Urine culture pending final Vitals signs on admission: T 100.0-100.1; P 85, R 24 (sob), BP 130/66, PO 90 2Lnc Treatment: Pulmonary consult. Albuterol Neb INH, Atrovent Neb INH, IV Levaquin , IV fluid rate 100, IV fluid bolus, IV Solumedrol, O2 2-3Lnc. In your professional opinion, please clarify if these findings signify one of the following conditions, whether the condition is POA, and cause, if known: Sepsis, ruled out Sepsis Severe Sepsis Septic Shock Unable to determine Other, please specify Present on Admission: Yes No * Identify the (suspected) organism * Link or clarify if there is associated (due to/with): - Organ failure - Shock Please document in your progress notes and discharge summary in order to capture severity of illness and risk of mortality. Include clinical findings that support your diagnosis. FYI: Press F11 to launch patient chart. Place X here if this finding has no clinical significance, is not applicable or if you are not able to provide any additional documentation. Thank You. MADISON
[2016-09-05] MEDS: ALBUTEROL NEBULIZED 2.5 MG/3 ML INHALATION PRN ×3 (11:12→20:07)
[2016-09-05 11:32] LABS: Glucose,Whole Blood 115 mg/dL (75-99)
[2016-09-05 16:53] LABS: Glucose,Whole Blood 143 mg/dL (75-99)
[2016-09-05 20:55] LABS: Glucose,Whole Blood 123 mg/dL (75-99)
[2016-09-05] MEDS: MONTELUKAST 10 MG TAB PO SCH (21:39)
[2016-09-05] MEDS: TEMAZEPAM 30 MG CAP PO PRN (21:43)
[2016-09-06] MEDS: methylPREDNISolone SOD SUCCI 125 MG/2 ML VIAL IV SCH ×4 (00:03→18:12)
[2016-09-06] MEDS: ALPRAZolam 0.25 MG TAB PO PRN ×3 (01:19→16:21)
[2016-09-06] MEDS: ALBUTEROL NEBULIZED 2.5 MG/3 ML INHALATION PRN ×4 (04:21→15:46)
--- NOTE | 2016-09-06 07:15 | XR ---
EXAMINATION TYPE: XR chest 2V DATE OF EXAM: 09/06/2016 COMPARISON: 09/03/2016 TECHNIQUE: PA and lateral views submitted. HISTORY: Shortness of breath FINDINGS: The lungs are clear and there is no pneumothorax, pleural effusion, or focal pneumonia. Hyperinflat ion suggests COPD. Biapical pleural thickening noted. No overt failure. Hypertrophic and degenerative change spine. Atherosclerotic change is seen. IMPRESSION: 1. No acute process. Correlate for COPD.
[2016-09-06 07:22] LABS: Glucose,Whole Blood 150 mg/dL (75-99)
[2016-09-06] MEDS: INSULIN LISPRO (humaLOG) 300 UNIT/3 ML VIAL SQ SCH ×4 (08:09→21:26)
[2016-09-06] MEDS: SODIUM CHLORIDE 0.9% 1,000 ML IV SCH (08:10)
[2016-09-06] MEDS: ENOXAPARIN 40 MG/0.4 ML SYRINGE SQ SCH (08:11)
[2016-09-06] MEDS: TIOTROPIUM 18 MCG/PUFF INHALER INHALATION SCH (08:11)
[2016-09-06] MEDS: SULFAMETHOX-TMP 800-160MG 1 EACH TAB PO SCH ×2 (08:11→21:26)
[2016-09-06] MEDS: BUDESONIDE 0.5 MG/2 ML NEBU INHALATION SCH ×2 (08:12→19:56)
[2016-09-06] MEDS: LORATADINE 10 MG TAB PO SCH (08:12)
[2016-09-06] MEDS: buPROPion SR 150 MG TABLET.ER PO SCH ×2 (08:12→21:26)
[2016-09-06] MEDS: FORMOTEROL FUMARATE 20 MCG/2 ML NEBU INHALATION SCH ×2 (08:12→19:56)
[2016-09-06] MEDS: METOPROLOL TARTRATE 25 MG TAB PO SCH ×2 (08:12→21:26)
--- NOTE | 2016-09-06 08:14 | P.PN ---
Subjective Principal diagnosis: Acute exacerbation of COPD. This is a continuing progress note on a 61-year-old white female essentially admitted for acute exacerbation of chronic obstructive pulmonary disease/ tracheal bronchitis. She states no significant new changes. Steroids have been instituted but seemingly not helping her as well as expected. No voiding difficulties. She does struggle with dryness in the air. Question some element of polyuria. She has humidified O2 at this time. Objective - Vital Signs Vital signs: Vital Signs Temp 97.0 F L 09/06/16 07:00 Pulse 99 09/06/16 07:00 Resp 20 09/06/16 07:00 BP 128/74 09/06/16 07:00 Pulse Ox 96 09/06/16 07:00 Intake & Output 09/05/16 09/06/16 09/06/16 18:59 06:59 18:59 Intake Total 1800 Balance 1800 Intake: Oral 1800 Other: Voiding Method Toilet # Voids 6 2 - Constitutional General appearance: Present: thin - EENT Eyes: Absent: abnormal pupil - Respiratory Respiratory: bilateral: diminished - Cardiovascular Rhythm: regular Heart sounds: normal: S1, S2 - Gastrointestinal General gastrointestinal: Present: soft. Absent: tenderness - Integumentary Integumentary: Absent: cellulitis - Neurologic Neurologic: Present: CNII-XII intact - Labs CBC & Chem 7: 09/05/16 08:06 09/05/16 08:06 Labs: Abnormal Lab Results - Last 24 Hours (Table) 09/05/16 09/05/16 09/05/16 Range/Units 08:06 08:06 11:30 WBC 17.8 H (3.8-10.6) k/uL Chloride 109 H (98-107) mmol/L BUN 18 H (7-17) mg/dL Glucose 146 H (74-99) mg/dL POC Glucose (mg/dL) 115 H (75-99) mg/dL 09/05/16 09/05/16 09/06/16 Range/Units 16:42 20:53 07:11 WBC (3.8-10.6) k/uL Chloride (98-107) mmol/L BUN (7-17) mg/dL Glucose (74-99) mg/dL POC Glucose (mg/dL) 143 H 123 H 150 H (75-99) mg/dL Microbiology - Last 24 Hours (Table) 09/04/16 17:00 Urine Culture - Final Urine,Voided 09/03/16 15:15 Blood Culture - Preliminary Blood No Growth after 48 hours 09/04/16 13:15 Blood Culture - Preliminary Blood No Growth after 24 hours Assessment and Plan (1) Acute exacerbation of chronic obstructive airways disease Status: Acute Plan: Continue current regimen of treatment. Appreciate Dr. Huang's input. Check CBC and CMP in a.m.
[2016-09-06 08:55] LABS: CH 31.4; CHCM 32.9; HCT 41.2 % (34.0-46.0); HDW 2.53; HGB 13.3 gm/dL (11.4-16.0); MCH 30.9 pg (25.0-35.0); MCHC 32.2 g/dL (31.0-37.0); MCV 95.9 fL (80.0-100.0); Mean Platelet Volume 7.3; RDW 14.2 % (11.5-15.5)
[2016-09-06 09:16] LABS: ALT 81 U/L (9-52); AST 62 U/L (14-36); Alkaline Phosphatase 67 U/L (38-126); Anion Gap 11 mmol/L; Blood Urea Nitrogen 21 mg/dL (7-17); Calcium 9.6 mg/dL (8.4-10.2); Carbon Dioxide 28 mmol/L (22-30); Chloride 102 mmol/L (98-107); Glucose 129 mg/dL (74-99); Non-African American GFR(MDRD) >60 (>60 ml/min/1.73 sqM); Sodium 141 mmol/L (137-145); Total Bilirubin 0.6 mg/dL (0.2-1.3)
--- NOTE | 2016-09-06 11:27 | P.PN ---
Subjective This is a 59-year-old 1-year-old female patient is being seen, evaluated and examined today on the fourth floor. This patient presented to the emergency room department with increasing shortness of breath, cough and congestion over the last several days that had been increasing in severity. Patient does have a history of recurrent pneumonias and COPD exacerbations about 4 months ago. Patient does have a known history of chronic hypoxic respiratory failure and is on 2 L of home oxygen. Patient states she was adjusting her own oxygen levels up and down at home without notifying a physician. Education regarding adjusting oxygen levels on her own could be dangerous and worsen respiratory status for a person with underlying respiratory issues. Upon examination the patient is resting up in bed on 3 L of supplemental oxygen she continues to have shortness of breath with any activity or exertion as well as conversation. Patient does have a productive cough with brown sputum, however this has decreased in the last 24 hours. Patient did have a PFT done in the outpatient setting recently. Chest x-ray completed today has been reviewed and continues to show no acute pulmonary process, correlate for COPD exacerbation. Objective - Vital Signs Vital signs: Vital Signs Temp 97.0 F L 09/06/16 07:00 Pulse 104 H 09/06/16 08:33 Resp 20 09/06/16 07:00 BP 128/74 09/06/16 07:00 Pulse Ox 96 09/06/16 07:00 Intake & Output 09/05/16 09/06/16 09/06/16 18:59 06:59 18:59 Intake Total 1800 Balance 1800 Intake: Oral 1800 Other: Voiding Method Toilet # Voids 6 2 - Exam GENERAL EXAM: Alert, active, comfortable in no apparent distress. HEAD: Normocephalic. EYES: Normal reaction of pupils, equal size. NOSE: Clear with pink turbinates. THROAT: No erythema or exudates. NECK: No masses, no JVD. CHEST: No chest wall deformity. LUNGS: Poor air entry with no crackles, wheeze, rhonchi or dullness. Bases diminished CVS: S1 and S2 normal with no audible mumurs, regular rhythm. ABDOMEN: No hepatosplenomegaly, normal bowel sounds, no guarding or rigidity. EXTREMITIES: No edema noted, pedal pulses palpable. SKIN: No rashes CENTRAL NERVOUS SYSTEM: No focal deficits, tone is normal in all 4 extremities. - Labs CBC & Chem 7: 09/06/16 08:17 09/06/16 08:17 Labs: Abnormal Lab Results - Last 24 Hours (Table) 09/05/16 09/05/16 09/05/16 Range/Units 11:30 16:42 20:53 WBC (3.8-10.6) k/uL BUN (7-17) mg/dL Glucose (74-99) mg/dL POC Glucose (mg/dL) 115 H 143 H 123 H (75-99) mg/dL AST (14-36) U/L ALT (9-52) U/L 09/06/16 09/06/16 09/06/16 Range/Units 07:11 08:17 08:17 WBC 16.0 H (3.8-10.6) k/uL BUN 21 H (7-17) mg/dL Glucose 129 H (74-99) mg/dL POC Glucose (mg/dL) 150 H (75-99) mg/dL AST 62 H (14-36) U/L ALT 81 H (9-52) U/L Microbiology - Last 24 Hours (Table) 09/04/16 17:00 Urine Culture - Final Urine,Voided 09/03/16 15:15 Blood Culture - Preliminary Blood No Growth after 48 hours 09/04/16 13:15 Blood Culture - Preliminary Blood No Growth after 24 hours Assessment and Plan Plan: Assessment Purulent tracheobronchitis and acute exacerbation of chronic obstructive pulmonary disease Acute on Chronic hypoxic respiratory failure Severe chronic obstructive pulmonary disease Leukocytosis likely related to chronic steroid use Elevated lactic acid levels likely related to dehydration and intravascular volume depletion and possible early sepsis Hypertension, hypertensive cardiovascular disease Generalized anxiety disorder Chronic insomnia Plan Patient is slowly improving, she is known to be a slow recovery in regards to her pulmonary diagnosis. We will consider weaning down steroids possibly tomorrow. Medications have been reviewed and will be continued as ordered. Continue with pulmonary hygiene, coughing and deep breathing exercises, and supportive care. Supplemental oxygen to maintain oxygen saturations of 90% or better. Continue with rehydration. Sputum cultures are currently pending. Initiate and encourage incentive spirometer. Continue nebulizer treatments. GI and DVT prophylaxis. We will continue to monitor labs/results and adjust treatment as necessary. Further recommendations pending. I performed an examination of the patient and discussed their management with the nurse practitioner. I have reviewed the nurse practitioner's note and agree with the documented findings and plan of care.
[2016-09-06 12:04] LABS: Glucose,Whole Blood 106 mg/dL (75-99)
[2016-09-06 17:35] LABS: Glucose,Whole Blood 109 mg/dL (75-99)
[2016-09-06 21:17] LABS: Glucose,Whole Blood 136 mg/dL (75-99)
[2016-09-06] MEDS: MONTELUKAST 10 MG TAB PO SCH (21:26)
[2016-09-06] MEDS: TEMAZEPAM 30 MG CAP PO PRN (21:28)
[2016-09-07] MEDS: methylPREDNISolone SOD SUCCI 125 MG/2 ML VIAL IV SCH ×2 (00:14→06:08)
[2016-09-07] MEDS: ALPRAZolam 0.25 MG TAB PO PRN ×4 (02:18→20:43)
[2016-09-07] MEDS: ALBUTEROL NEBULIZED 2.5 MG/3 ML INHALATION PRN ×5 (02:24→20:04)
[2016-09-07] MEDS: BUDESONIDE 0.5 MG/2 ML NEBU INHALATION SCH ×2 (07:05→20:04)
[2016-09-07] MEDS: TIOTROPIUM 18 MCG/PUFF INHALER INHALATION SCH (07:05)
[2016-09-07] MEDS: FORMOTEROL FUMARATE 20 MCG/2 ML NEBU INHALATION SCH ×2 (07:05→20:04)
[2016-09-07 07:25] LABS: Glucose,Whole Blood 130 mg/dL (75-99)
[2016-09-07] MEDS: INSULIN LISPRO (humaLOG) 300 UNIT/3 ML VIAL SQ SCH ×4 (07:57→21:21)
[2016-09-07] MEDS: ENOXAPARIN 40 MG/0.4 ML SYRINGE SQ SCH (08:03)
[2016-09-07] MEDS: METOPROLOL TARTRATE 25 MG TAB PO SCH ×2 (08:03→20:39)
[2016-09-07] MEDS: SULFAMETHOX-TMP 800-160MG 1 EACH TAB PO SCH ×2 (08:03→20:39)
[2016-09-07] MEDS: LORATADINE 10 MG TAB PO SCH (08:04)
[2016-09-07] MEDS: buPROPion SR 150 MG TABLET.ER PO SCH ×2 (08:04→20:39)
[2016-09-07] MEDS: SODIUM CHLORIDE 0.9% 1,000 ML IV SCH (08:05)
[2016-09-07 08:34] LABS: CH 31.5; CHCM 33.1; HCT 42.4 % (34.0-46.0); HDW 2.47; HGB 13.7 gm/dL (11.4-16.0); MCHC 32.4 g/dL (31.0-37.0); MCV 95.6 fL (80.0-100.0); Mean Platelet Volume 7.8; RBC 4.43 m/uL (3.80-5.40); RDW 14.2 % (11.5-15.5)
[2016-09-07 08:50] LABS: ALT 71 U/L (9-52); AST 34 U/L (14-36); Alkaline Phosphatase 65 U/L (38-126); Anion Gap 9 mmol/L; Blood Urea Nitrogen 25 mg/dL (7-17); Calcium 9.3 mg/dL (8.4-10.2); Carbon Dioxide 30 mmol/L (22-30); Chloride 100 mmol/L (98-107); Glucose 130 mg/dL (74-99); Non-African American GFR(MDRD) >60 (>60 ml/min/1.73 sqM); Potassium 4.3 mmol/L (3.5-5.1); Sodium 139 mmol/L (137-145); Total Bilirubin 0.6 mg/dL (0.2-1.3); Total Protein 6.7 g/dL (6.3-8.2)
--- NOTE | 2016-09-07 08:50 | P.PN ---
Subjective Principal diagnosis: Acute exacerbation of COPD. This is a continue process on a 61-year-old white female essentially admitted for exacerbation of COPD. There is significant improvement today. But I suspect I would like to keep her on another dose of Solu-Medrol for today. She is agreeable to this. I do anticipate possible discharge in the weekend. Dr. Sommers's group will be covering. Objective - Vital Signs Vital signs: Vital Signs Temp 98.0 F 09/07/16 07:00 Pulse 84 09/07/16 07:27 Resp 18 09/07/16 07:00 BP 114/70 09/07/16 07:00 Pulse Ox 93 L 09/07/16 07:07 Intake & Output 09/06/16 09/07/16 09/07/16 18:59 06:59 18:59 Intake Total 320 1310 Balance 320 1310 Weight 53.07 kg Intake: Intake, IV Titration 160 Amount Sodium Chloride 0.9% 1, 160 000 ml @ 20 mls/hr IV . Q24H [facility] Rx#:[id number] Oral 320 1150 Other: Voiding Method Toilet # Voids 2 1 - Constitutional General appearance: Present: thin - EENT Eyes: Absent: abnormal pupil - Respiratory Respiratory: bilateral: diminished - Cardiovascular Rhythm: regular Heart sounds: normal: S1, S2 - Gastrointestinal General gastrointestinal: Present: soft. Absent: tenderness - Neurologic Neurologic: Present: CNII-XII intact - Musculoskeletal Musculoskeletal: Present: gait normal - Labs CBC & Chem 7: 09/07/16 07:38 09/06/16 08:17 Labs: Abnormal Lab Results - Last 24 Hours (Table) 09/06/16 09/06/16 09/06/16 Range/Units 08:17 08:17 11:56 WBC 16.0 H (3.8-10.6) k/uL BUN 21 H (7-17) mg/dL Glucose 129 H (74-99) mg/dL POC Glucose (mg/dL) 106 H (75-99) mg/dL AST 62 H (14-36) U/L ALT 81 H (9-52) U/L 09/06/16 09/06/16 09/07/16 Range/Units 17:13 21:11 07:22 WBC (3.8-10.6) k/uL BUN (7-17) mg/dL Glucose (74-99) mg/dL POC Glucose (mg/dL) 109 H 136 H 130 H (75-99) mg/dL AST (14-36) U/L ALT (9-52) U/L 09/07/16 Range/Units 07:38 WBC 11.0 H (3.8-10.6) k/uL BUN (7-17) mg/dL Glucose (74-99) mg/dL POC Glucose (mg/dL) (75-99) mg/dL AST (14-36) U/L ALT (9-52) U/L Microbiology - Last 24 Hours (Table) 09/05/16 08:20 Gram Stain - Preliminary Sputum 09/03/16 15:15 Blood Culture - Preliminary Blood No Growth after 72 hours 09/04/16 13:15 Blood Culture - Preliminary Blood No Growth after 48 hours Assessment and Plan (1) Acute exacerbation of chronic obstructive airways disease Status: Acute Plan: Slowly wean off of Solu-Medrol. Continue to follow pulmonology. I do anticipate discharge in next 24-48 hours with oral prednisone. Dr. Sommers's group will be covering for the weekend. Time with Patient: Less than 30
--- NOTE | 2016-09-07 10:39 | P.PN ---
Subjective This is a 59-year-old 1-year-old female patient is being seen, evaluated and examined today on the fourth floor. This patient presented to the emergency room department with increasing shortness of breath, cough and congestion over the last several days that had been increasing in severity. Patient does have a history of recurrent pneumonias and COPD exacerbations about 4 months ago. Patient does have a known history of chronic hypoxic respiratory failure and is on 2 L of home oxygen. Patient states she was adjusting her own oxygen levels up and down at home without notifying a physician. Education regarding adjusting oxygen levels on her own could be dangerous and worsen respiratory status for a person with underlying respiratory issues. Upon examination the patient is resting up in bed on 3 L of supplemental oxygen she continues to have shortness of breath with any activity or exertion as well as conversation. Patient's productive cough has significantly decreased sputum is now clear to light yellow. Patient states she is feeling a lot better. Objective - Vital Signs Vital signs: Vital Signs Temp 98.0 F 09/07/16 07:00 Pulse 84 09/07/16 07:27 Resp 18 09/07/16 07:00 BP 114/70 09/07/16 07:00 Pulse Ox 93 L 09/07/16 07:07 Intake & Output 09/06/16 09/07/16 09/07/16 18:59 06:59 18:59 Intake Total 320 1310 Balance 320 1310 Weight 53.07 kg Intake: Intake, IV Titration 160 Amount Sodium Chloride 0.9% 1, 160 000 ml @ 20 mls/hr IV . Q24H [facility] Rx#:[id number] Oral 320 1150 Other: Voiding Method Toilet # Voids 2 1 - Exam GENERAL EXAM: Alert, active, comfortable in no apparent distress. HEAD: Normocephalic. EYES: Normal reaction of pupils, equal size. NOSE: Clear with pink turbinates. THROAT: No erythema or exudates. NECK: No masses, no JVD. CHEST: No chest wall deformity. LUNGS: Poor air entry with no crackles, wheeze, rhonchi or dullness. Bases diminished CVS: S1 and S2 normal with no audible mumurs, regular rhythm. ABDOMEN: No hepatosplenomegaly, normal bowel sounds, no guarding or rigidity. EXTREMITIES: No edema noted, pedal pulses palpable. SKIN: No rashes CENTRAL NERVOUS SYSTEM: No focal deficits, tone is normal in all 4 extremities. - Labs CBC & Chem 7: 09/07/16 07:38 09/07/16 07:38 Labs: Abnormal Lab Results - Last 24 Hours (Table) 09/06/16 09/06/16 09/06/16 Range/Units 11:56 17:13 21:11 WBC (3.8-10.6) k/uL BUN (7-17) mg/dL Glucose (74-99) mg/dL POC Glucose (mg/dL) 106 H 109 H 136 H (75-99) mg/dL ALT (9-52) U/L 09/07/16 09/07/16 09/07/16 Range/Units 07:22 07:38 07:38 WBC 11.0 H (3.8-10.6) k/uL BUN 25 H (7-17) mg/dL Glucose 130 H (74-99) mg/dL POC Glucose (mg/dL) 130 H (75-99) mg/dL ALT 71 H (9-52) U/L Microbiology - Last 24 Hours (Table) 09/05/16 08:20 Gram Stain - Preliminary Sputum 09/03/16 15:15 Blood Culture - Preliminary Blood No Growth after 72 hours 09/04/16 13:15 Blood Culture - Preliminary Blood No Growth after 48 hours Assessment and Plan Plan: Assessment Purulent tracheobronchitis and acute exacerbation of chronic obstructive pulmonary disease Acute on Chronic hypoxic respiratory failure Severe chronic obstructive pulmonary disease Leukocytosis likely related to chronic steroid use Elevated lactic acid levels likely related to dehydration and intravascular volume depletion and possible early sepsis Hypertension, hypertensive cardiovascular disease Generalized anxiety disorder Chronic insomnia Plan Patient is slowly improving, she is known to be a slow recovery in regards to her pulmonary diagnosis. Steroids have been weaned down. Patient could benefit for one more day of steroids. Anticipate discharge in the next 24-48 hours from a pulmonary standpoint. Medications have been reviewed and will be continued as ordered. Continue with pulmonary hygiene, coughing and deep breathing exercises, and supportive care. Supplemental oxygen to maintain oxygen saturations of 90% or better. Continue with rehydration. Initiate and encourage incentive spirometer. Cultures negative so far. Continue nebulizer treatments. GI and DVT prophylaxis. We will continue to monitor labs/results and adjust treatment as necessary. Further recommendations pending. I performed an examination of the patient and discussed their management with the nurse practitioner. I have reviewed the nurse practitioner's note and agree with the documented findings and plan of care.
[2016-09-07 11:50] LABS: Glucose,Whole Blood 80 mg/dL (75-99)
[2016-09-07] MEDS: methylPREDNISolone SOD SUCCI 40 MG/ML 1 ML VIAL IV SCH ×2 (15:38→23:16)
[2016-09-07 17:16] LABS: Glucose,Whole Blood 99 mg/dL (75-99)
[2016-09-07] MEDS: MONTELUKAST 10 MG TAB PO SCH (20:40)
[2016-09-07] MEDS ORDERED: methylPREDNISolone SOD SUCCI 125 MG/2 ML VIAL IV SCH (21:00)
[2016-09-07 21:11] LABS: Glucose,Whole Blood 128 mg/dL (75-99)
[2016-09-07] MEDS: TEMAZEPAM 30 MG CAP PO PRN (22:30)
[2016-09-08 00:29] VITALS: RESP 16
[2016-09-08] MEDS: ALPRAZolam 0.25 MG TAB PO PRN ×2 (06:03→11:25)
[2016-09-08 07:17] LABS: Glucose,Whole Blood 114 mg/dL (75-99)
[2016-09-08] MEDS: TIOTROPIUM 18 MCG/PUFF INHALER INHALATION SCH (08:10)
[2016-09-08] MEDS: BUDESONIDE 0.5 MG/2 ML NEBU INHALATION SCH (08:11)
[2016-09-08] MEDS: ALBUTEROL NEBULIZED 2.5 MG/3 ML INHALATION PRN ×3 (08:11→14:58)
[2016-09-08] MEDS: FORMOTEROL FUMARATE 20 MCG/2 ML NEBU INHALATION SCH (08:11)
[2016-09-08] MEDS: INSULIN LISPRO (humaLOG) 300 UNIT/3 ML VIAL SQ SCH ×2 (08:40→12:54)
[2016-09-08] MEDS: LORATADINE 10 MG TAB PO SCH (08:51)
[2016-09-08] MEDS: SULFAMETHOX-TMP 800-160MG 1 EACH TAB PO SCH (08:51)
[2016-09-08] MEDS: METOPROLOL TARTRATE 25 MG TAB PO SCH (08:51)
[2016-09-08] MEDS: buPROPion SR 150 MG TABLET.ER PO SCH (08:51)
[2016-09-08] MEDS: ENOXAPARIN 40 MG/0.4 ML SYRINGE SQ SCH (08:52)
[2016-09-08] MEDS: methylPREDNISolone SOD SUCCI 40 MG/ML 1 ML VIAL IV SCH ×2 (08:52→15:44)
[2016-09-08 12:31] LABS: Glucose,Whole Blood 87 mg/dL (75-99)
[2016-09-08 15:22] VITALS: BP 115/70; PULSE 98; TEMP 97.8
--- NOTE | 2016-09-08 16:24 | P.DS ---
Providers Date of admission: 09/03/16 16:38 Attending physician: Kurtis Piña Consults: 09/04/16 08:45 Consult Physician Routine Consulting Provider: Cayden Huang Consult Reason/Comments: COPD exacerabation Do you want consulting provider notified?: Yes Primary care physician: Kurtis Piña [facility] Course: This is a 59-year-old 1-year-old female patient is being seen, evaluated and examined today on the fourth floor. This patient presented to the emergency room department with increasing shortness of breath, cough and congestion over the last several days that had been increasing in severity. Patient does have a history of recurrent pneumonias and COPD exacerbations about 4 months ago. Patient does have a known history of chronic hypoxic respiratory failure and is on 2 L of home oxygen. Patient was admitted to the hospital was treated with steroids. Patient will start on Bactrim.. Patient apparently had some ALLERGIC reaction to Levaquin initially Patient is seen in cross coverage for Dr. Dewayne Piña on the day of discharge Patient is able to ambulate with supplemental oxygen. States to have a cough minimally productive in nature states to be improved significantly Lungs diminished breath sounds however air movement is appreciated no rhonchi wheezing or crackles. Heart S1-S2 heard no murmurs appreciable Abdomen is soft nontender no organomegaly Discharge diagnoses #1 acute on chronic hypoxic respiratory failure #2 acute exacerbation of COPD due to tracheal bronchitis #3 anxiety Plan Patient will be continued on steroids 50 mg prednisone for 7 days is to follow- up with Dr. perez hourly We'll discharge the patient on doxycycline 100 mg a Days Discharged home in stable condition patient does have DuoNeb at home and takes Spiriva as well Patient Condition at Discharge: Fair Plan - Discharge Summary New Discharge Prescriptions: New Doxycycline Monohydrate [Monodox] 100 mg PO Q12HR #10 cap predniSONE 50 mg PO DAILY #7 tab Temazepam [Restoril] 30 mg PO HS PRN #10 cap PRN Reason: Insomnia Continue Tiotropium [place] [Spiriva Respimat] 1 cap INHALATION RT-DAILY Budesonide [Pulmicort] 0.5 mg INHALATION RT-BID nebu Montelukast [Singulair] 10 mg PO HS tab Arformoterol Tartrate [Brovana] 15 mcg INHALATION RT-BID buPROPion SR [Wellbutrin SR] 150 mg PO BID Albuterol Nebulized [Ventolin Nebulized] 2.5 mg INHALATION RT-BID Albuterol Inhaler [Ventolin Hfa Inhaler] 1 - 2 puff INHALATION RT-QID PRN PRN Reason: Shortness Of Breath Metoprolol Tartrate 25 mg PO BID ALPRAZolam [Xanax] 0.25 mg PO QID PRN PRN Reason: Anxiety predniSONE 5 mg PO Q48H Discharge Medication List Tiotropium [place] [Spiriva Respimat] 1 cap INHALATION RT-DAILY 12/11/14 [ History] Budesonide [Pulmicort] 0.5 mg INHALATION RT-BID nebu 12/17/14 [Rx] Montelukast [Singulair] 10 mg PO HS tab 12/17/14 [Rx] Arformoterol Tartrate [Brovana] 15 mcg INHALATION RT-BID 04/14/15 [History] buPROPion SR [Wellbutrin SR] 150 mg PO BID 04/14/15 [History] Albuterol Nebulized [Ventolin Nebulized] 2.5 mg INHALATION RT-BID 05/02/15 [ History] ALPRAZolam [Xanax] 0.25 mg PO QID PRN 09/03/16 [History] Albuterol Inhaler [Ventolin Hfa Inhaler] 1 - 2 puff INHALATION RT-QID PRN [History] Metoprolol Tartrate 25 mg PO BID 09/03/16 [History] predniSONE 5 mg PO Q48H 09/03/16 [History] Doxycycline Monohydrate [Monodox] 100 mg PO Q12HR #10 cap 09/08/16 [Rx] Temazepam [Restoril] 30 mg PO HS PRN #10 cap 09/08/16 [Rx] predniSONE 50 mg PO DAILY #7 tab 09/08/16 [Rx] Follow up Appointment(s)/Referral(s): Kurtis Piña MD [Primary Care Provider] - 1 Week [facility], [NON-STAFF] - Cayden Huang MD [STAFF PHYSICIAN] - 1 Week Patient Instructions/Handouts: COPD (Chronic Obstructive Pulmonary Disease) (DC ) Activity/Diet/Wound Care/Special Instructions: Regular diet. Discharge Disposition: HOME WITH HOME HEALTH SERVICES
--- NOTE | 2016-09-08 17:08 | PN ---
She was seen on 09/08/2016. She is less short of breath. She has an occasional cough. On physical examination, her respiratory rate is 17, pulse rate of 74, temperature 97, blood pressure 112/69, O2 sat on 2 L by nasal cannula is 100%. HEENT is unremarkable. Chest reveals decreased breath sounds with prolonged expiration. No wheeze. Cardiovascular system reveals an S1 and S2. Abdomen is soft. There is no pedal edema. IMPRESSION AT THIS TIME: Chronic obstructive pulmonary disease with acute exacerbation. At this point in time, agree with possible discharge planning on tapering dose of steroids with bronchodilators and aerosolized steroids. Increase her activity level. She was counseled regarding her condition.
== END 2016-09-08 16:31 | disposition home health service (06) | DRG 190 ==
LOC: EC 14:59 → 4MS4W 16:38
PROVIDERS: ADMIT Family Medicine; ATTEND Family Medicine
DX: J44.0 Chronic obstructive pulmonary disease with (acute) lower respiratory infection (principal); J96.21 Acute and chronic respiratory failure with hypoxia; I11.9 Hypertensive heart disease without heart failure; Z99.81 Dependence on supplemental oxygen; J44.1 Chronic obstructive pulmonary disease with (acute) exacerbation; J20.9 Acute bronchitis, unspecified; E86.0 Dehydration; F41.1 Generalized anxiety disorder; F51.04 Psychophysiologic insomnia; T38.0X5A Adverse effect of glucocorticoids and synthetic analogues, initial encounter; T37.8X5A Adverse effect of other specified systemic anti-infectives and antiparasitics, initial encounter; D72.829 Elevated white blood cell count, unspecified; R20.8 Other disturbances of skin sensation; M19.91 Primary osteoarthritis, unspecified site; Z87.01 Personal history of pneumonia (recurrent); Z90.49 Acquired absence of other specified parts of digestive tract; Z87.891 Personal history of nicotine dependence; Z79.51 Long term (current) use of inhaled steroids; Z79.52 Long term (current) use of systemic steroids; Z79.899 Other long term (current) drug therapy; Z88.0 Allergy status to penicillin; Z80.1 Family history of malignant neoplasm of trachea, bronchus and lung
CPT/HCPCS: 36415; 71020; 80053; 82550; 82553; 83036; 83605; 83735; 83880; 84484; 85025; 85027; 85610; 85730; 87040; 87070; 87086; 87205; 93005; 94640; 94760; 96365; 96375; 99285

== ENCOUNTER → 2016-11-15 | Outpatient (CLI) | payer OTHER ==
--- NOTE | 2016-11-15 14:13 | MM ---
Reason for exam: follow-up at short interval from prior study. Last mammogram was performed 7 months ago. History: Patient is postmenopausal. Family history of breast cancer in mother. Excisional biopsy of the left breast. Physical Findings: Nurse did not find any significant physical abnormalities on exam. MG 3D Diag Mammo W/Cad RT CC and MLO view(s) were taken of the right breast. Prior study comparison: May 01, 2016, bilateral MG 3d screening mammo w/cad. April 21, 2015, bilateral MG screening mammo w CAD. The breast tissue is heterogeneously dense. This may lower the sensitivity of mammography. There is chronic nodularity in the right breast. There is no dominant lesion. No significant new findings when compared with previous films. These results were verbally communicated with the patient and result sheet given to the patient on 11/15/16. ASSESSMENT: Benign, BI-RAD 2 RECOMMENDATION: Routine screening mammogram of both breasts in 6 months. Back on schedule.
== END | disposition home or self-care (01) ==
LOC: RADMAMWWP 13:14
PROVIDERS: ATTEND Obstetrics & Gynecology
DX: R92.8 Other abnormal and inconclusive findings on diagnostic imaging of breast (principal)
CPT/HCPCS: G0206; G0279

== ENCOUNTER 2017-06-03 15:59 | Observation (INO) | payer BC, OTHER ==
[2017-06-03] MEDS ORDERED: MAGNESIUM SULFATE-D5W PMX 1 GM in DEXTROSE/WATER 1 100ML.BAG IVPB STA (17:07)
[2017-06-03] MEDS ORDERED: methylPREDNISolone SOD SUCCI 125 MG/2 ML VIAL IV STA (17:07)
[2017-06-03] MEDS ORDERED: IPRATROPIUM-ALBUTEROL 3 ML NEB INHALATION STA (17:07)
--- NOTE | 2017-06-03 17:16 | ED ---
SOB HPI - General Chief Complaint: Shortness of Breath Stated Complaint: SOB Time Seen by Provider: 06/03/17 17:00 Source: patient, RN notes reviewed Mode of arrival: wheelchair Limitations: no limitations - History of Present Illness Initial Comments: This is a 62-year-old female history of COPD who states she's had source of breath for about the last 2 months agolast couple days she's had cough with clear phlegm no fevers chills or sweats has had exertional dyspnea no overt chest pain no other complaints of other symptoms at this time. MD Complaint: shortness of breath - Related Data Home Medications Medication Instructions Recorded Confirmed Tiotropium [place] [Spiriva 1 cap INHALATION RT-DAILY 12/11/14 06/03/17 Respimat] Arformoterol Tartrate [Brovana] 15 mcg INHALATION RT-BID 04/14/15 06/03/17 buPROPion SR [Wellbutrin SR] 150 mg PO BID 04/14/15 06/03/17 Albuterol Nebulized [Ventolin 2.5 mg INHALATION RT-BID 05/02/15 06/03/17 Nebulized] ALPRAZolam [Xanax] 0.25 mg PO QID PRN 09/03/16 06/03/17 Albuterol Inhaler [Ventolin Hfa 2 puff INHALATION RT-QID PRN 09/03/16 06/03/17 Inhaler] Metoprolol Tartrate 25 mg PO BID 09/03/16 06/03/17 predniSONE 5 mg PO DAILY 09/03/16 06/03/17 Previous Rx's Medication Instructions Recorded Budesonide [Pulmicort] 0.5 mg INHALATION RT-BID nebu 12/17/14 Allergies Allergy/AdvReac Type Severity Reaction Status Date / Time montelukast [From Singulair] Allergy Itching Verified 06/03/17 17:23 Penicillins Allergy Rash/Hives Verified 06/03/17 17:23 Review of Systems ROS Statement: Those systems with pertinent positive or pertinent negative responses have been documented in the HPI. ROS Other: All systems not noted in ROS Statement are negative. Past Medical History Past Medical History: COPD, Osteoarthritis (OA), Pneumonia Additional Past Medical History / Comment(s): HOME 02 2 LITERS N/C, UTI-ECOLI, EDENTULOUS, PAST FX TO A VERTEBRE-SINCE HEALED History of Any Multi-Drug Resistant Organisms: None Reported Past Surgical History: Appendectomy Additional Past Surgical History / Comment(s): LASER EYE SX Past Anesthesia/Blood Transfusion Reactions: No Reported Reaction Past Psychological History: Anxiety Smoking Status: Former smoker Past Alcohol Use History: None Reported Past Drug Use History: None Reported - Past Family History Mother Family Medical History: Cancer Additional Family Medical History / Comment(s): breast/BLADDER CA Father Family Medical History: Cancer Additional Family Medical History / Comment(s): lung ca, BRAIN TUMORS General Exam - General Exam Comments Initial Comments: This is a well little pulmonary awake alert oriented 3 female Limitations: no limitations General appearance: alert, anxious, in distress Head exam: Present: atraumatic, normocephalic, normal inspection Eye exam: Present: normal appearance, PERRL, EOMI. Absent: scleral icterus, conjunctival injection, periorbital swelling ENT exam: Present: mucous membranes dry Neck exam: Present: normal inspection. Absent: tenderness, meningismus, lymphadenopathy Respiratory exam: Present: accessory muscle use, decreased breath sounds. Absent: respiratory distress, wheezes, rales, rhonchi, stridor, chest wall tenderness Cardiovascular Exam: Present: regular rate, normal rhythm, normal heart sounds. Absent: systolic murmur, diastolic murmur, rubs, gallop, clicks GI/Abdominal exam: Present: soft, normal bowel sounds. Absent: distended, tenderness, guarding, rebound, rigid Extremities exam: Present: normal inspection, full ROM, normal capillary refill. Absent: tenderness, pedal edema, joint swelling, calf tenderness Back exam: Present: normal inspection Neurological exam: Present: alert, oriented X3, CN II-XII intact Psychiatric exam: Present: normal affect, normal mood Skin exam: Present: warm, dry, intact, normal color. Absent: rash Course Vital Signs 06/03/17 06/03/17 06/03/17 16:27 17:30 17:51 Temperature 97.6 F Pulse Rate 77 69 72 Respiratory 20 16 Rate Blood Pressure 103/53 129/83 O2 Sat by Pulse 96 100 Oximetry 06/03/17 06/03/17 06/03/17 17:58 17:59 19:13 Temperature Pulse Rate 72 76 Respiratory 16 16 Rate Blood Pressure 124/84 O2 Sat by Pulse 98 Oximetry - Reevaluation(s) Reevaluation #1: 06/03/17 18:43 I did reevaluate the patient she still demonstrates diminished breath sounds with exertional dyspnea by work over is unremarkable as is a chest x-ray showing no evidence of acute findings does have evidence of COPD Reevaluation #2: 06/03/17 20:10 I did reevaluate the patient again admits after the treatment she states she doesn't feel much better she still not moving a lot of air though x-ray shows no acute findings as is lab work showing no acute findings. Medical Decision Making - Medical Decision Making I did discuss findings with the patient she will be admitted I did discuss case Dr. Piña. - Lab Data Result diagrams: 06/03/17 17:04 06/03/17 17:04 Lab Results 06/03/17 06/03/17 06/03/17 Range/Units 17:04 17:04 17:04 WBC 7.7 (3.8-10.6) k/uL RBC 4.51 (3.80-5.40) m/uL Hgb 13.8 (11.4-16.0) gm/dL Hct 40.4 (34.0-46.0) % MCV 89.7 (80.0-100.0) fL MCH 30.6 (25.0-35.0) pg MCHC 34.1 (31.0-37.0) g/dL RDW 13.7 (11.5-15.5) % Plt Count 185 (150-450) k/uL Neutrophils % 62 % Lymphocytes % 29 % Monocytes % 5 % Eosinophils % 1 % Basophils % 1 % Neutrophils # 4.7 (1.3-7.7) k/uL Lymphocytes # 2.2 (1.0-4.8) k/uL Monocytes # 0.4 (0-1.0) k/uL Eosinophils # 0.1 (0-0.7) k/uL Basophils # 0.1 (0-0.2) k/uL PT (9.0-12.0) sec INR (<1.2) APTT (22.0-30.0) sec D-Dimer (<0.60) mg/L FEU Sodium 140 (137-145) mmol/L Potassium 4.3 (3.5-5.1) mmol/L Chloride 102 (98-107) mmol/L Carbon Dioxide 29 (22-30) mmol/L Anion Gap 9 mmol/L BUN 17 (7-17) mg/dL Creatinine 0.64 (0.52-1.04) mg/dL Est GFR (CKD-EPI)AfAm >90 (>60 ml/min/1.73 sqM) Est GFR (CKD-EPI)NonAf >90 (>60 ml/min/1.73 sqM) Glucose 89 (74-99) mg/dL Calcium 9.5 (8.4-10.2) mg/dL Magnesium 1.8 (1.6-2.3) mg/dL Total Bilirubin 0.4 (0.2-1.3) mg/dL AST 20 (14-36) U/L ALT 24 (9-52) U/L Alkaline Phosphatase 48 (38-126) U/L Total Creatine Kinase 50 (30-135) U/L CK-MB (CK-2) 1.3 (0.0-2.4) ng/mL CK-MB (CK-2) Rel Index 2.6 Troponin I <0.012 (0.000-0.034) ng/mL NT-Pro-B Natriuret Pep pg/mL Total Protein 6.6 (6.3-8.2) g/dL Albumin 4.2 (3.5-5.0) g/dL 06/03/17 06/03/17 Range/Units 17:04 17:04 WBC (3.8-10.6) k/uL RBC (3.80-5.40) m/uL Hgb (11.4-16.0) gm/dL Hct (34.0-46.0) % MCV (80.0-100.0) fL MCH (25.0-35.0) pg MCHC (31.0-37.0) g/dL RDW (11.5-15.5) % Plt Count (150-450) k/uL Neutrophils % % Lymphocytes % % Monocytes % % Eosinophils % % Basophils % % Neutrophils # (1.3-7.7) k/uL Lymphocytes # (1.0-4.8) k/uL Monocytes # (0-1.0) k/uL Eosinophils # (0-0.7) k/uL Basophils # (0-0.2) k/uL PT 10.2 (9.0-12.0) sec INR 1.0 (<1.2) APTT 25.2 (22.0-30.0) sec D-Dimer 0.36 (<0.60) mg/L FEU Sodium (137-145) mmol/L Potassium (3.5-5.1) mmol/L Chloride (98-107) mmol/L Carbon Dioxide (22-30) mmol/L Anion Gap mmol/L BUN (7-17) mg/dL Creatinine (0.52-1.04) mg/dL Est GFR (CKD-EPI)AfAm (>60 ml/min/1.73 sqM) Est GFR (CKD-EPI)NonAf (>60 ml/min/1.73 sqM) Glucose (74-99) mg/dL Calcium (8.4-10.2) mg/dL Magnesium (1.6-2.3) mg/dL Total Bilirubin (0.2-1.3) mg/dL AST (14-36) U/L ALT (9-52) U/L Alkaline Phosphatase (38-126) U/L Total Creatine Kinase (30-135) U/L CK-MB (CK-2) (0.0-2.4) ng/mL CK-MB (CK-2) Rel Index Troponin I (0.000-0.034) ng/mL NT-Pro-B Natriuret Pep 222 pg/mL Total Protein (6.3-8.2) g/dL Albumin (3.5-5.0) g/dL - EKG Data -: EKG Interpreted by Me EKG shows normal: sinus rhythm (Sinus rhythm a 69 artifact is present the rate was 69. Interval 128 QRS duration 136 QT since QTC of 324/347 nonspecific interventricular block and nonspecific T-wave configuration.) - Radiology Data Radiology results: report reviewed (I did review the imaging and report no acute findings.), image reviewed Critical Care Time Critical Care Time: Yes Critical Care Time: 32 minutes of critical care time which includes initial presentation with history physical labs x-rays reevaluation patient several occasions responsive therapy. Discussion with the patient of the initial results and the findings discussed with the admitting physician documentation the above and admission orders. Disposition Clinical Impression: Acute exacerbation of chronic obstructive airways disease, Adult respiratory distress syndrome Disposition: ADMITTED IP TO THIS HOSP Condition: Stable Referrals: Kurtis Piña MD [Primary Care Provider] - 1-2 days
[2017-06-03] MEDS: SODIUM CHLORIDE 0.9% 1,000 ML IV STA ×2 (17:28→22:44)
[2017-06-03 17:32] LABS: Basophils # (A) 0.1 k/uL (0-0.2); Basophils % (A) 1 %; Eosinophils # (A) 0.1 k/uL (0-0.7); Eosinophils % (A) 1 %; HCT 40.4 % (34.0-46.0); HGB 13.8 gm/dL (11.4-16.0); Lymphocytes # (A) 2.2 k/uL (1.0-4.8); Lymphocytes % (A) 29 %; MCH 30.6 pg (25.0-35.0); MCHC 34.1 g/dL (31.0-37.0); MCV 89.7 fL (80.0-100.0); Mean Platelet Volume 7.1; Monocytes # (A) 0.4 k/uL (0-1.0); Monocytes % (A) 5 %; Neutrophils # (A) 4.7 k/uL (1.3-7.7); Neutrophils % (A) 62 %; Platelet Count 185 k/uL (150-450); RBC 4.51 m/uL (3.80-5.40); RDW 13.7 % (11.5-15.5); WBC 7.7 k/uL (3.8-10.6)
[2017-06-03 17:41] LABS: ALT 24 U/L (9-52); AST 20 U/L (14-36); Albumin 4.2 g/dL (3.5-5.0); Alkaline Phosphatase 48 U/L (38-126); Anion Gap 9 mmol/L; Blood Urea Nitrogen 17 mg/dL (7-17); Calcium 9.5 mg/dL (8.4-10.2); Carbon Dioxide 29 mmol/L (22-30); Chloride 102 mmol/L (98-107); Glucose 89 mg/dL (74-99); Magnesium 1.8 mg/dL (1.6-2.3); Potassium 4.3 mmol/L (3.5-5.1); Sodium 140 mmol/L (137-145); Total Bilirubin 0.4 mg/dL (0.2-1.3); Total Protein 6.6 g/dL (6.3-8.2)
--- NOTE | 2017-06-03 17:48 | XR ---
EXAMINATION TYPE: XR chest 2V DATE OF EXAM: 06/03/2017 COMPARISON: 09/06/2016 HISTORY: Short of breath TECHNIQUE: Frontal and lateral views of the chest are obtained. FINDINGS: There is pulmonary hyperinflation and flattening of the diaphragm. Heart size is normal. L ungs are clear of consolidation. There is no sign of pleural effusion. Bony thorax appears intact. IMPRESSION: COPD. No acute lung disease. Minimal pleural scarring along the right major fissure. No significant change compared to old exam.
[2017-06-03 17:51] LABS: Creatine Kinase 50 U/L (30-135)
[2017-06-03 18:04] LABS: Creatine Kinase MB 1.3 ng/mL (0.0-2.4); Troponin I <0.012 ng/mL (0.000-0.034)
[2017-06-03 18:07] LABS: D-Dimer 0.36 mg/L FEU (<0.60)
[2017-06-03 18:11] LABS: Prothrombin Time 10.2 sec (9.0-12.0)
[2017-06-03 18:14] LABS: Partial Thromboplastin Time 25.2 sec (22.0-30.0)
[2017-06-03 22:34] VITALS: BMI 22.1
[2017-06-03] MEDS: METOPROLOL TARTRATE 25 MG TAB PO SCH (22:42)
[2017-06-03] MEDS: buPROPion SR 150 MG TABLET.ER PO SCH (22:42)
[2017-06-03] MEDS: ALPRAZolam 0.25 MG TAB PO PRN (22:42)
[2017-06-03] MEDS: IPRATROPIUM-ALBUTEROL 3 ML NEB INHALATION SCH (23:06)
[2017-06-04] MEDS: methylPREDNISolone SOD SUCCI 125 MG/2 ML VIAL IV SCH ×5 (00:05→23:00)
[2017-06-04] MEDS: SODIUM CHLORIDE 0.9% 1,000 ML IV STA (00:06)
[2017-06-04] MEDS: SODIUM CHLORIDE 0.9% 1,000 ML IV SCH ×3 (00:07→17:42)
[2017-06-04] MEDS: IPRATROPIUM-ALBUTEROL 3 ML NEB INHALATION SCH ×5 (03:04→19:22)
[2017-06-04] MEDS: buPROPion SR 150 MG TABLET.ER PO SCH ×2 (07:56→23:00)
[2017-06-04] MEDS: METOPROLOL TARTRATE 25 MG TAB PO SCH ×2 (07:56→23:00)
[2017-06-04] MEDS: ALPRAZolam 0.25 MG TAB PO PRN ×3 (07:58→23:00)
[2017-06-04] MEDS ORDERED: DRY MOUTH SPRAY 44.3 SPRAY/44.3 ML SPRAY MUCOUS MEM PRN (18:06)
--- NOTE | 2017-06-04 20:36 | P.HPIM ---
History of Present Illness H&P Date: 06/04/17 Chief Complaint: Worsening shortness of breath. This is a history and physical a 62-year-old white female with known history of asthmatic bronchitis COPD. Pulmonology does follow her but she has been struggling for the last 3-4 days with difficulty breathing. Cough and congestion is noted. She has been stabilizing with initial treatment. But because of her respiratory status with tachypnea and difficulty ambulating, she was appropriate admitted for exacerbation of COPD. We will go ahead and consult pulmonology at this time. Allergies include Levaquin and Singulair and penicillins. Review of Systems Constitutional: Denies chills, Denies fever Eyes: denies blurred vision, denies pain Ears, nose, mouth and throat: Denies headache, Denies sore throat Respiratory: Reports cough, Reports pleurisy Gastrointestinal: Denies abdominal pain, Denies diarrhea, Denies nausea, Denies vomiting Genitourinary: Denies dysuria, Denies hematuria Neurological: Denies numbness, Denies weakness Endocrine: Denies fatigue, Denies weight change Past Medical History Past Medical History: COPD, Osteoarthritis (OA), Pneumonia Additional Past Medical History / Comment(s): HOME 02 2 LITERS [place], UTI-ECOLI, EDENTULOUS, PAST FX TO A VERTEBRE-SINCE HEALED History of Any Multi-Drug Resistant Organisms: None Reported Past Surgical History: Appendectomy Additional Past Surgical History / Comment(s): LASER EYE SX Past Anesthesia/Blood Transfusion Reactions: No Reported Reaction Past Psychological History: Anxiety Additional Psychological History / Comment(s): PT LIVES WITH HER DAUGHER IN A SINGLE LEVEL HOME THAT HAS 4 PORCH STEPS AND A BASEMENT W/12 STEPS. NO OUTSIDE SERVICES RECIEVED. HAS HOME O2 AND A NEBULIZER. PT IS INDEPENDANT WHEN UP. 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 Smoking Status: Former smoker Past Alcohol Use History: None Reported Additional Past Alcohol Use History / Comment(s): STARTED SMOKING AROUND 1976- 2 PPD, QUIT . Past Drug Use History: None Reported - Past Family History Mother Family Medical History: Cancer Additional Family Medical History / Comment(s): breast/BLADDER CA Father Family Medical History: Cancer Additional Family Medical History / Comment(s): lung ca, BRAIN TUMORS Medications and Allergies Home Medications Medication Instructions Recorded Confirmed Type Tiotropium [place] [Spiriva 1 cap INHALATION RT-DAILY 12/11/14 06/03/17 History Respimat] Budesonide [Pulmicort] 0.5 mg INHALATION RT-BID nebu 12/17/14 06/03/17 Rx Arformoterol Tartrate [Brovana] 15 mcg INHALATION RT-BID 04/14/15 06/03/17 History buPROPion SR [Wellbutrin SR] 150 mg PO BID 04/14/15 06/03/17 History Albuterol Nebulized [Ventolin 2.5 mg INHALATION RT-BID 05/02/15 06/03/17 History Nebulized] ALPRAZolam [Xanax] 0.25 mg PO QID PRN 09/03/16 06/03/17 History Albuterol Inhaler [Ventolin Hfa 2 puff INHALATION RT-QID PRN 09/03/16 06/03/17 History Inhaler] Metoprolol Tartrate 25 mg PO BID 09/03/16 06/03/17 History predniSONE 5 mg PO DAILY 09/03/16 06/03/17 History Allergies Allergy/AdvReac Type Severity Reaction Status Date / Time levofloxacin [From Levaquin] Allergy Rash/Hives Verified 06/03/17 22:37 montelukast [From Singulair] Allergy Itching Verified 06/03/17 17:23 Penicillins Allergy Rash/Hives Verified 06/03/17 17:23 Physical Exam Vitals: Vital Signs Temp Pulse Pulse Resp BP Pulse Ox 06/04/17 19:32 102 H 06/04/17 19:22 104 H 06/04/17 15:52 95 06/04/17 15:36 91 97 06/04/17 15:00 96.5 F L 96 18 131/67 96 06/04/17 12:09 94 06/04/17 11:57 92 06/04/17 08:21 88 06/04/17 08:12 88 06/04/17 07:00 97.2 F L 76 16 122/65 99 06/04/17 03:17 84 06/04/17 03:05 80 06/03/17 23:23 96.7 F L 80 18 109/58 98 06/03/17 23:15 95 16 06/03/17 23:06 94 18 98 Intake and Output 06/04/17 06/04/17 06/04/17 06:59 14:59 22:59 Intake Total 480 Balance 480 Intake: Oral 480 Other: # Voids 2 5 - Constitutional General appearance: no acute distress - EENT Eyes: EOMI - Neck Neck: no lymphadenopathy - Respiratory Respiratory: bilateral: CTA - Cardiovascular Rhythm: regular Heart sounds: normal: S1, S2 - Gastrointestinal General gastrointestinal: soft, no tenderness - Psychiatric Psychiatric: A&O x's 3, no appropriate affect Results CBC & Chem 7: 06/03/17 17:04 06/03/17 17:04 Thrombosis Risk Factor Assmnt - Choose All That Apply Each Factor Represents 1 point: Abnormal pulmonary function (COPD) Each Risk Factor Represents 2 Points: Age 61-74 years Thrombosis Risk Factor Assessment Total Risk Factor Score: 3 Thrombosis Risk Factor Assessment Level: Moderate Risk Assessment and Plan (1) Acute exacerbation of chronic obstructive airways disease Current Visit: Yes Status: Acute Code(s): J44.1 - CHRONIC OBSTRUCTIVE PULMONARY DISEASE W (ACUTE) EXACERBATION SNOMED Code(s): 205418138 (2) Adult respiratory distress syndrome Current Visit: Yes Status: Acute Code(s): J80 - ACUTE RESPIRATORY DISTRESS SYNDROME SNOMED Code(s): 46508132 Plan: Placed on appropriate COPD protocol. Consult Dr. Huang. Otherwise, she is a full code. Check CBC and CMP in a.m. See orders otherwise.
[2017-06-05] MEDS: IPRATROPIUM-ALBUTEROL 3 ML NEB INHALATION SCH ×6 (00:41→20:59)
[2017-06-05] MEDS: SODIUM CHLORIDE 0.9% 1,000 ML IV SCH ×2 (06:15→12:04)
[2017-06-05] MEDS: methylPREDNISolone SOD SUCCI 125 MG/2 ML VIAL IV SCH ×3 (06:37→17:27)
[2017-06-05] MEDS: METOPROLOL TARTRATE 25 MG TAB PO SCH ×2 (08:12→21:19)
[2017-06-05] MEDS: buPROPion SR 150 MG TABLET.ER PO SCH ×2 (08:12→21:19)
--- NOTE | 2017-06-05 08:12 | P.PN ---
Subjective Progress Note Date: 06/05/17 Principal diagnosis: COPD exacerbation. This is a continue process on a 62-year-old white female essentially admitted for exacerbation of COPD. The patient still feels that she has dyspnea. However, significant improvement is noted from yesterday. She struggles with the fact that she has to be hospitalized. No voiding difficulties otherwise stated. She would like a regular diet. Objective - Vital Signs Vital signs: Vital Signs Temp 97.8 F 06/05/17 06:13 Pulse 82 06/05/17 07:33 Resp 18 06/05/17 06:13 BP 117/67 06/05/17 06:13 Pulse Ox 98 06/05/17 06:13 Intake & Output 06/04/17 06/05/17 06/05/17 18:59 06:59 18:59 Intake Total 480 Balance 480 Intake: Oral 480 Other: Voiding Method Toilet # Voids 5 2 - Constitutional General appearance: Present: average body habitus - EENT Eyes: Absent: abnormal pupil - Neck Neck: Absent: lymphadenopathy - Respiratory Respiratory: bilateral: diminished - Cardiovascular Rhythm: regular Heart sounds: normal: S1, S2 Abnormal Heart Sounds: Absent: S3 Gallop - Gastrointestinal General gastrointestinal: Present: soft. Absent: tenderness - Psychiatric Psychiatric: Present: A&O x's 3 - Labs CBC & Chem 7: 06/03/17 17:04 06/03/17 17:04 Assessment and Plan (1) Acute exacerbation of chronic obstructive airways disease Current Visit: Yes Status: Acute Code(s): J44.1 - CHRONIC OBSTRUCTIVE PULMONARY DISEASE W (ACUTE) EXACERBATION SNOMED Code(s): 492838120 (2) Adult respiratory distress syndrome Current Visit: Yes Status: Acute Code(s): J80 - ACUTE RESPIRATORY DISTRESS SYNDROME SNOMED Code(s): 38240452 Plan: Continue current regimen of treatment. Pulmonology is consulted. Check CBC and CMP in a.m. per See orders otherwise.
[2017-06-05] MEDS: ALPRAZolam 0.25 MG TAB PO PRN ×2 (08:13→21:19)
[2017-06-05 10:34] LABS: HCT 39.4 % (34.0-46.0); HGB 12.9 gm/dL (11.4-16.0); MCH 30.4 pg (25.0-35.0); MCHC 32.6 g/dL (31.0-37.0); MCV 93.1 fL (80.0-100.0); Mean Platelet Volume 9.7; Platelet Count 176 k/uL (150-450); RBC 4.23 m/uL (3.80-5.40); WBC 16.3 k/uL (3.8-10.6)
[2017-06-05 10:48] LABS: ALT 23 U/L (9-52); AST 29 U/L (14-36); Albumin 4.2 g/dL (3.5-5.0); Alkaline Phosphatase 45 U/L (38-126); Anion Gap 14 mmol/L; Blood Urea Nitrogen 20 mg/dL (7-17); Calcium 9.9 mg/dL (8.4-10.2); Carbon Dioxide 23 mmol/L (22-30); Chloride 103 mmol/L (98-107); Glucose 300 mg/dL (74-99); Sodium 140 mmol/L (137-145); Total Bilirubin 0.3 mg/dL (0.2-1.3); Total Protein 6.3 g/dL (6.3-8.2)
--- NOTE | 2017-06-05 11:18 | P.CNPUL ---
History of Present Illness Consult date: 06/05/17 Reason for consult: COPD Chief complaint: Shortness of breath History of present illness: This is a 62-year-old female patient being seen examined and evaluated today for consultation. This patient has a long standing history of chronic COPD and asthmatic bronchitis. She does follow in Dr. Huang's office and states she has been struggling over the last 3-4 days with shortness of breath that had been progressively getting worse. She has also has a cough and congestion. Her nebulizer treatments at home were not effective. She also is on prednisone daily at home. Upon examination the patient's resting up in bed on 2 L of supplemental oxygen via nasal cannula she does utilize 2-3 L of oxygen at all times at home. Review of Systems 14 point review of systems was completed and is negative unless noted above in HPI. Past Medical History Past Medical History: COPD, Osteoarthritis (OA), Pneumonia Additional Past Medical History / Comment(s): HOME 02 2 LITERS N/C, UTI-ECOLI, EDENTULOUS, PAST FX TO A VERTEBRE-SINCE HEALED History of Any Multi-Drug Resistant Organisms: None Reported Past Surgical History: Appendectomy Additional Past Surgical History / Comment(s): LASER EYE SX Past Anesthesia/Blood Transfusion Reactions: No Reported Reaction Past Psychological History: Anxiety Additional Psychological History / Comment(s): PT LIVES WITH HER DAUGHER IN A SINGLE LEVEL HOME THAT HAS 4 PORCH STEPS AND A BASEMENT W/12 STEPS. NO OUTSIDE SERVICES RECIEVED. HAS HOME O2 AND A NEBULIZER. PT IS INDEPENDANT WHEN UP. 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 Smoking Status: Former smoker Past Alcohol Use History: None Reported Additional Past Alcohol Use History / Comment(s): STARTED SMOKING AROUND 1976- 2 PPD, QUIT . Past Drug Use History: None Reported - Past Family History Mother Family Medical History: Cancer Additional Family Medical History / Comment(s): breast/BLADDER CA Father Family Medical History: Cancer Additional Family Medical History / Comment(s): lung ca, BRAIN TUMORS Medications and Allergies Home Medications Medication Instructions Recorded Confirmed Type Tiotropium [place] [Spiriva 1 cap INHALATION RT-DAILY 12/11/14 06/03/17 History Respimat] Budesonide [Pulmicort] 0.5 mg INHALATION RT-BID nebu 12/17/14 06/03/17 Rx Arformoterol Tartrate [Brovana] 15 mcg INHALATION RT-BID 04/14/15 06/03/17 History buPROPion SR [Wellbutrin SR] 150 mg PO BID 04/14/15 06/03/17 History Albuterol Nebulized [Ventolin 2.5 mg INHALATION RT-BID 05/02/15 06/03/17 History Nebulized] ALPRAZolam [Xanax] 0.25 mg PO QID PRN 09/03/16 06/03/17 History Albuterol Inhaler [Ventolin Hfa 2 puff INHALATION RT-QID PRN 09/03/16 06/03/17 History Inhaler] Metoprolol Tartrate 25 mg PO BID 09/03/16 06/03/17 History predniSONE 5 mg PO DAILY 09/03/16 06/03/17 History Allergies Allergy/AdvReac Type Severity Reaction Status Date / Time levofloxacin [From Levaquin] Allergy Rash/Hives Verified 06/03/17 22:37 montelukast [From Singulair] Allergy Itching Verified 06/03/17 17:23 Penicillins Allergy Rash/Hives Verified 06/03/17 17:23 Physical Exam Vitals: Vital Signs Temp Pulse Pulse Resp BP Pulse Ox 06/05/17 07:33 82 06/05/17 07:23 80 06/05/17 06:13 97.8 F 90 18 117/67 98 06/05/17 04:20 86 06/05/17 04:10 86 06/05/17 00:54 86 06/05/17 00:42 81 06/04/17 22:51 96.6 F L 88 18 117/63 97 06/04/17 19:32 102 H 06/04/17 19:22 104 H 06/04/17 15:52 95 06/04/17 15:36 91 97 06/04/17 15:00 96.5 F L 96 18 131/67 96 06/04/17 12:09 94 06/04/17 11:57 92 Intake and Output 06/04/17 06/05/17 06/05/17 22:59 06:59 14:59 Other: Voiding Method Toilet # Voids 1 2 GENERAL EXAM: Alert, thin, frail, comfortable in no apparent distress. HEAD: Normocephalic. EYES: Normal reaction of pupils, equal size. NOSE: Clear with pink turbinates. THROAT: No erythema or exudates. NECK: No masses, no JVD. CHEST: No chest wall deformity. LUNGS: Poor air entry through out. Bases diminished CVS: S1 and S2 normal with no audible mumurs, regular rhythm. ABDOMEN: No hepatosplenomegaly, normal bowel sounds, no guarding or rigidity. EXTREMITIES: No edema noted, pedal pulses palpable. CENTRAL NERVOUS SYSTEM: No focal deficits, tone is normal in all 4 extremities. Results - Laboratory Findings CBC and BMP: 06/05/17 09:35 06/05/17 09:35 PT/INR, D-dimer PT 10.2 sec (9.0-12.0) 06/03/17 17:04 INR 1.0 (<1.2) 06/03/17 17:04 D-Dimer 0.36 mg/L FEU (<0.60) 06/03/17 17:04 Abnormal lab findings: Abnormal Labs 06/05/17 06/05/17 09:35 09:35 WBC 16.3 H BUN 20 H Glucose 300 H - Diagnostic Findings Chest x-ray: report reviewed, image reviewed Assessment and Plan Assessment: Assessment Acute exacerbation of COPD Acute on chronic hypoxic respiratory failure Acute respiratory distress syndrome History of hypertension Generalized anxiety disorder Chronic insomnia Plan Medications have been reviewed and will be continued as ordered. IV steroids. Continue with pulmonary hygiene, coughing and deep breathing exercises, and supportive care. Supplemental oxygen to maintain oxygen saturations of 92% or better. Continue nebulizer treatments. GI and DVT prophylaxis. We will continue to monitor labs/results and adjust treatment as necessary. Further recommendations pending. I performed an examination of the patient and discussed their management with the nurse practitioner. I have reviewed the nurse practitioner's note and agree with the documented findings and plan of care.
[2017-06-05 17:24] LABS: Glucose,Whole Blood 107 mg/dL (75-99)
[2017-06-05] MEDS: INSULIN ASPART 100 UNIT/ML 1 ML 10 ML VIAL SQ SCH ×2 (17:26→21:19)
[2017-06-05 20:41] LABS: Glucose,Whole Blood 179 mg/dL (75-99)
[2017-06-05] MEDS: BUDESONIDE 0.5 MG/2 ML NEBU INHALATION SCH (20:59)
[2017-06-05] MEDS: FORMOTEROL FUMARATE 20 MCG/2 ML NEBU INHALATION SCH (20:59)
[2017-06-06] MEDS: IPRATROPIUM-ALBUTEROL 3 ML NEB INHALATION SCH ×6 (00:01→19:32)
[2017-06-06] MEDS: methylPREDNISolone SOD SUCCI 125 MG/2 ML VIAL IV SCH ×4 (00:02→16:53)
[2017-06-06] MEDS: SODIUM CHLORIDE 0.9% 1,000 ML IV SCH ×2 (00:03→09:39)
[2017-06-06] MEDS: ALPRAZolam 0.25 MG TAB PO PRN ×3 (02:48→18:24)
[2017-06-06 07:15] LABS: Glucose,Whole Blood 132 mg/dL (75-99)
[2017-06-06] MEDS: BUDESONIDE 0.5 MG/2 ML NEBU INHALATION SCH ×2 (07:23→19:32)
[2017-06-06] MEDS: FORMOTEROL FUMARATE 20 MCG/2 ML NEBU INHALATION SCH ×2 (07:23→19:32)
--- NOTE | 2017-06-06 08:24 | P.PN ---
Subjective Principal diagnosis: COPD exacerbation. This is a continue progress on a 62-year-old white female essentially admitted for exacerbation of COPD. She does take 2-3 L of oxygen at home. She states no new new complaints but she feels that she is not improving as expected. Appreciate pulmonology input otherwise. No voiding difficulties are noted. Objective - Vital Signs Vital signs: Vital Signs Temp 97.3 F L 06/05/17 23:00 Pulse 84 06/06/17 07:47 Resp 16 06/05/17 23:00 BP 104/64 06/05/17 23:00 Pulse Ox 98 06/05/17 23:00 Intake & Output 06/05/17 06/06/17 06/06/17 18:59 06:59 18:59 Intake Total 900 600 Balance 900 600 Intake: Oral 900 600 Other: Voiding Method Toilet # Voids 6 1 - Constitutional General appearance: Present: thin - EENT Eyes: Absent: abnormal pupil - Neck Neck: Absent: lymphadenopathy - Respiratory Respiratory: bilateral: diminished - Cardiovascular Rhythm: regular Heart sounds: normal: S1, S2 - Gastrointestinal General gastrointestinal: Present: soft. Absent: tenderness - Integumentary Integumentary: Absent: cyanotic - Labs CBC & Chem 7: 06/05/17 09:35 06/05/17 09:35 Labs: Abnormal Lab Results - Last 24 Hours (Table) 06/05/17 06/05/17 06/05/17 Range/Units 09:35 09:35 17:21 WBC 16.3 H (3.8-10.6) k/uL BUN 20 H (7-17) mg/dL Glucose 300 H (74-99) mg/dL POC Glucose (mg/dL) 107 H (75-99) mg/dL 06/05/17 06/06/17 Range/Units 20:39 07:10 WBC (3.8-10.6) k/uL BUN (7-17) mg/dL Glucose (74-99) mg/dL POC Glucose (mg/dL) 179 H 132 H (75-99) mg/dL Assessment and Plan (1) Acute exacerbation of chronic obstructive airways disease Current Visit: Yes Status: Acute Code(s): J44.1 - CHRONIC OBSTRUCTIVE PULMONARY DISEASE W (ACUTE) EXACERBATION SNOMED Code(s): 448780039 (2) Adult respiratory distress syndrome Current Visit: Yes Status: Acute Code(s): J80 - ACUTE RESPIRATORY DISTRESS SYNDROME SNOMED Code(s): 04535783 Plan: Anticipate transfer/discharge in next 24-48 hours. I do suspect that she is close to her baseline. Check CBC and CMP in a.m. Time with Patient: Less than 30
[2017-06-06 08:50] LABS: HCT 41.6 % (34.0-46.0); HGB 13.5 gm/dL (11.4-16.0); MCH 30.2 pg (25.0-35.0); MCHC 32.4 g/dL (31.0-37.0); MCV 93.3 fL (80.0-100.0); Mean Platelet Volume 8.3; Platelet Count 215 k/uL (150-450); RBC 4.46 m/uL (3.80-5.40); RDW 14.2 % (11.5-15.5); WBC 16.2 k/uL (3.8-10.6)
[2017-06-06 09:01] LABS: ALT 34 U/L (9-52); AST 25 U/L (14-36); Albumin 4.4 g/dL (3.5-5.0); Alkaline Phosphatase 52 U/L (38-126); Anion Gap 12 mmol/L; Blood Urea Nitrogen 24 mg/dL (7-17); Carbon Dioxide 27 mmol/L (22-30); Chloride 103 mmol/L (98-107); Glucose 119 mg/dL (74-99); Potassium 4.2 mmol/L (3.5-5.1); Sodium 142 mmol/L (137-145); Total Bilirubin 0.4 mg/dL (0.2-1.3); Total Protein 6.6 g/dL (6.3-8.2)
[2017-06-06] MEDS: INSULIN ASPART 100 UNIT/ML 1 ML 10 ML VIAL SQ SCH ×4 (09:39→21:12)
[2017-06-06] MEDS: METOPROLOL TARTRATE 25 MG TAB PO SCH ×2 (09:40→22:29)
[2017-06-06] MEDS: buPROPion SR 150 MG TABLET.ER PO SCH ×2 (09:40→22:29)
[2017-06-06 11:30] LABS: Glucose,Whole Blood 110 mg/dL (75-99)
[2017-06-06] MEDS ORDERED: INSULIN ASPART 100 UNIT/ML 1 ML 10 ML VIAL SQ ONE (12:00)
[2017-06-06] MEDS ORDERED: methylPREDNISolone SOD SUCCI 125 MG/2 ML VIAL ONE (12:00)
--- NOTE | 2017-06-06 12:11 | P.PN ---
<Joanne Diaz E - Last Filed: 06/06/17 12:07> Subjective Progress Note Date: 06/06/17 HPI: This is a 62-year-old female patient being seen examined and evaluated today for consultation. This patient has a long standing history of chronic COPD and asthmatic bronchitis. She does follow in Dr. Huang's office and states she has been struggling over the last 3-4 days with shortness of breath that had been progressively getting worse. She has also has a cough and congestion. Her nebulizer treatments at home were not effective. She also is on prednisone daily at home. Upon examination the patient's resting up in bed on 2 L of supplemental oxygen via nasal cannula she does utilize 2-3 L of oxygen at all times at home. 06/06/17- patient is being seen examined and evaluated today on rounds. She is resting up in bed on 2-3 L of supplemental oxygen which is what she wears at home as well. She states she still has shortness of breath with exertion however it is continued to improve. Currently she continues on steroids we will taper that was down. Nebulizer treatments seem to be helping her. She is afebrile no further complaints. Objective - Vital Signs Vital signs: Vital Signs Temp 97.3 F L 06/06/17 07:00 Pulse 84 06/06/17 11:25 Resp 20 06/06/17 07:00 BP 136/85 06/06/17 07:00 Pulse Ox 99 06/06/17 07:00 Intake & Output 06/05/17 06/06/17 06/06/17 18:59 06:59 18:59 Intake Total 900 600 Balance 900 600 Intake: Oral 900 600 Other: Voiding Method Toilet # Voids 6 1 - Exam GENERAL EXAM: Alert, thin, frail, comfortable in no apparent distress. HEAD: Normocephalic. EYES: Normal reaction of pupils, equal size. NOSE: Clear with pink turbinates. THROAT: No erythema or exudates. NECK: No masses, no JVD. CHEST: No chest wall deformity. LUNGS: Poor air entry through out. Bases diminished CVS: S1 and S2 normal with no audible mumurs, regular rhythm. ABDOMEN: No hepatosplenomegaly, normal bowel sounds, no guarding or rigidity. EXTREMITIES: No edema noted, pedal pulses palpable. CENTRAL NERVOUS SYSTEM: No focal deficits, tone is normal in all 4 extremities. - Labs CBC & Chem 7: 06/06/17 08:01 06/06/17 08:01 Labs: Abnormal Lab Results - Last 24 Hours (Table) 06/05/17 06/05/17 06/06/17 Range/Units 17:21 20:39 07:10 WBC (3.8-10.6) k/uL BUN (7-17) mg/dL Glucose (74-99) mg/dL POC Glucose (mg/dL) 107 H 179 H 132 H (75-99) mg/dL 06/06/17 06/06/17 06/06/17 Range/Units 08:01 08:01 11:27 WBC 16.2 H (3.8-10.6) k/uL BUN 24 H (7-17) mg/dL Glucose 119 H (74-99) mg/dL POC Glucose (mg/dL) 110 H (75-99) mg/dL Assessment and Plan Assessment: Assessment Acute exacerbation of COPD Acute on chronic hypoxic respiratory failure Acute respiratory distress syndrome History of hypertension Generalized anxiety disorder Chronic insomnia Plan Patient continues to slowly improve she is almost at baseline. Medications have been reviewed and will be continued as ordered. IV steroids, taper. Continue with pulmonary hygiene, coughing and deep breathing exercises, and supportive care. Supplemental oxygen to maintain oxygen saturations of 92% or better. Continue nebulizer treatments. GI and DVT prophylaxis. We will continue to monitor labs/results and adjust treatment as necessary. Further recommendations pending. I performed an examination of the patient and discussed their management with the nurse practitioner. I have reviewed the nurse practitioner's note and agree with the documented findings and plan of care. <Isaura Lopez - Last Filed: 06/06/17 15:12> Objective - Vital Signs Vital signs: Vital Signs Temp 97.3 F L 06/06/17 07:00 Pulse 84 06/06/17 11:25 Resp 20 06/06/17 07:00 BP 136/85 06/06/17 07:00 Pulse Ox 99 06/06/17 07:00 Intake & Output 06/05/17 06/06/17 06/06/17 18:59 06:59 18:59 Intake Total 900 600 Balance 900 600 Intake: Oral 900 600 Other: Voiding Method Toilet # Voids 6 1 - Labs CBC & Chem 7: 06/06/17 08:01 06/06/17 08:01 Labs: Abnormal Lab Results - Last 24 Hours (Table) 06/05/17 06/05/17 06/06/17 Range/Units 17:21 20:39 07:10 WBC (3.8-10.6) k/uL BUN (7-17) mg/dL Glucose (74-99) mg/dL POC Glucose (mg/dL) 107 H 179 H 132 H (75-99) mg/dL 06/06/17 06/06/17 06/06/17 Range/Units 08:01 08:01 11:27 WBC 16.2 H (3.8-10.6) k/uL BUN 24 H (7-17) mg/dL Glucose 119 H (74-99) mg/dL POC Glucose (mg/dL) 110 H (75-99) mg/dL Assessment and Plan Assessment: Patient seen and examined. Patient states that her breathing is about the same. She is concerned because her roommate apparently had issues last night and she is hoping to change rooms. She is also asking for IV fluids can be discontinued. We will discontinue the IV fluids plan is for possible discharge home tomorrow. Patient follows with Dr. Huang in the office. She should follow up in 1-2 weeks. Isaura Lopez DO
[2017-06-06 15:57] VITALS: RESP 18
[2017-06-06 17:09] LABS: Glucose,Whole Blood 107 mg/dL (75-99)
[2017-06-06 20:36] LABS: Glucose,Whole Blood 124 mg/dL (75-99)
[2017-06-07] MEDS: IPRATROPIUM-ALBUTEROL 3 ML NEB INHALATION SCH ×4 (00:25→11:38)
[2017-06-07] MEDS: methylPREDNISolone SOD SUCCI 40 MG/ML 1 ML VIAL IV SCH ×2 (00:43→07:36)
[2017-06-07 05:50] VITALS: BP 135/68; TEMP 97.1
[2017-06-07 07:16] LABS: Glucose,Whole Blood 114 mg/dL (75-99)
[2017-06-07] MEDS: INSULIN ASPART 100 UNIT/ML 1 ML 10 ML VIAL SQ SCH ×2 (07:33→12:23)
[2017-06-07] MEDS: METOPROLOL TARTRATE 25 MG TAB PO SCH (07:36)
[2017-06-07] MEDS: buPROPion SR 150 MG TABLET.ER PO SCH (07:37)
--- NOTE | 2017-06-07 08:06 | P.DS ---
Providers Date of admission: 06/03/17 20:16 Attending physician: Kurtis Piña Consults: 06/04/17 20:32 Consult Physician Routine Consulting Provider: Isaura Lopez Consult Reason/Comments: COPD exacerbation Do you want consulting provider notified?: Yes Primary care physician: Kurtis Piña - Discharge Diagnosis(es) (1) Acute exacerbation of chronic obstructive airways disease Current Visit: Yes Status: Acute (2) Adult respiratory distress syndrome Current Visit: Yes Status: Acute Patient Condition at Discharge: Stable Plan - Discharge Summary Discharge Rx Participant: Yes New Discharge Prescriptions: Continue Tiotropium [place] [Spiriva Respimat] 1 cap INHALATION RT-DAILY Budesonide [Pulmicort] 0.5 mg INHALATION RT-BID nebu Arformoterol Tartrate [Brovana] 15 mcg INHALATION RT-BID buPROPion SR [Wellbutrin SR] 150 mg PO BID Albuterol Nebulized [Ventolin Nebulized] 2.5 mg INHALATION RT-BID Albuterol Inhaler [Ventolin Hfa Inhaler] 2 puff INHALATION RT-QID PRN PRN Reason: Shortness Of Breath Metoprolol Tartrate 25 mg PO BID ALPRAZolam [Xanax] 0.25 mg PO QID PRN PRN Reason: Anxiety Changed predniSONE 10 mg PO DAILY #14 tab Discharge Medication List Tiotropium [place] [Spiriva Respimat] 1 cap INHALATION RT-DAILY 12/11/14 [ History] Budesonide [Pulmicort] 0.5 mg INHALATION RT-BID nebu 12/17/14 [Rx] Arformoterol Tartrate [Brovana] 15 mcg INHALATION RT-BID 04/14/15 [History] buPROPion SR [Wellbutrin SR] 150 mg PO BID 04/14/15 [History] Albuterol Nebulized [Ventolin Nebulized] 2.5 mg INHALATION RT-BID 05/02/15 [ History] ALPRAZolam [Xanax] 0.25 mg PO QID PRN 09/03/16 [History] Albuterol Inhaler [Ventolin Hfa Inhaler] 2 puff INHALATION RT-QID PRN 09/03/16 [ History] Metoprolol Tartrate 25 mg PO BID 09/03/16 [History] predniSONE 10 mg PO DAILY #14 tab 06/07/17 [Rx] Follow up Appointment(s)/Referral(s): Krutis Piña MD [Primary Care Provider] - 1-2 days Discharge Disposition: HOME SELF-CARE
[2017-06-07] MEDS: FORMOTEROL FUMARATE 20 MCG/2 ML NEBU INHALATION SCH (08:16)
[2017-06-07] MEDS: BUDESONIDE 0.5 MG/2 ML NEBU INHALATION SCH (08:16)
[2017-06-07 08:39] VITALS: PULSE 89
--- NOTE | 2017-06-07 10:48 | P.PN ---
Subjective Progress Note Date: 06/07/17 HPI: This is a 62-year-old female patient being seen examined and evaluated today for consultation. This patient has a long standing history of chronic COPD and asthmatic bronchitis. She does follow in Dr. Huang's office and states she has been struggling over the last 3-4 days with shortness of breath that had been progressively getting worse. She has also has a cough and congestion. Her nebulizer treatments at home were not effective. She also is on prednisone daily at home. Upon examination the patient's resting up in bed on 2 L of supplemental oxygen via nasal cannula she does utilize 2-3 L of oxygen at all times at home. 06/06/17- patient is being seen examined and evaluated today on rounds. She is resting up in bed on 2-3 L of supplemental oxygen which is what she wears at home as well. She states she still has shortness of breath with exertion however it is continued to improve. Currently she continues on steroids we will taper that was down. Nebulizer treatments seem to be helping her. She is afebrile no further complaints. 06/07/17- patient is being seen examined and evaluated today on rounds. She is preparing for discharge. The patient's shortness of breath is back to baseline. She does have end-stage COPD. She does have chronic hypoxic respiratory failure which requires supplemental oxygen at home. She is currently on her home dose of oxygen. She does have follow-up appointment with Dr. Piña and Dr. Huang her surveyor oil well directional. Objective - Vital Signs Vital signs: Vital Signs Temp 97.1 F L 06/07/17 05:50 Pulse 89 06/07/17 08:37 Resp 18 06/07/17 05:50 BP 135/68 06/07/17 05:50 Pulse Ox 96 06/07/17 05:50 Intake & Output 06/06/17 06/07/17 06/07/17 18:59 06:59 18:59 Intake Total 720 Balance 720 Intake: Oral 720 Other: Voiding Method Toilet # Voids 6 2 - Exam GENERAL EXAM: Alert, thin, frail, comfortable in no apparent distress. HEAD: Normocephalic. EYES: Normal reaction of pupils, equal size. NOSE: Clear with pink turbinates. THROAT: No erythema or exudates. NECK: No masses, no JVD. CHEST: No chest wall deformity. LUNGS: Poor air entry through out. Bases diminished CVS: S1 and S2 normal with no audible mumurs, regular rhythm. ABDOMEN: No hepatosplenomegaly, normal bowel sounds, no guarding or rigidity. EXTREMITIES: No edema noted, pedal pulses palpable. CENTRAL NERVOUS SYSTEM: No focal deficits, tone is normal in all 4 extremities. - Labs CBC & Chem 7: 06/06/17 08:01 06/06/17 08:01 Labs: Abnormal Lab Results - Last 24 Hours (Table) 06/06/17 06/06/17 06/06/17 Range/Units 11:27 17:06 20:23 POC Glucose (mg/dL) 110 H 107 H 124 H (75-99) mg/dL 06/07/17 Range/Units 07:14 POC Glucose (mg/dL) 114 H (75-99) mg/dL Assessment and Plan Assessment: Assessment Acute exacerbation of COPD Acute on chronic hypoxic respiratory failure Acute respiratory distress syndrome History of hypertension Generalized anxiety disorder Chronic insomnia Plan Patient cleared from pulmonary standpoint for discharge. She does have follow- up appointments with Dr. Piña and Dr. Huang her surveyor oil well directional. Patient continues to slowly improve she is almost at baseline. Medications have been reviewed and will be continued as ordered. Oral steroids. Continue with pulmonary hygiene, coughing and deep breathing exercises, and supportive care. Supplemental oxygen to maintain oxygen saturations of 92% or better. Continue nebulizer treatments. GI and DVT prophylaxis. We will continue to monitor labs/ results and adjust treatment as necessary. Further recommendations pending. I performed an examination of the patient and discussed their management with the nurse practitioner. I have reviewed the nurse practitioner's note and agree with the documented findings and plan of care.
[2017-06-07 11:53] LABS: Glucose,Whole Blood 109 mg/dL (75-99)
== END 2017-06-07 13:58 | disposition home or self-care (01) ==
LOC: EC 15:59 → 4MS4W 20:16
PROVIDERS: ADMIT Family Medicine; ATTEND Family Medicine
DX: J44.1 Chronic obstructive pulmonary disease with (acute) exacerbation (principal); J96.21 Acute and chronic respiratory failure with hypoxia; I10 Essential (primary) hypertension; F41.1 Generalized anxiety disorder; M19.90 Unspecified osteoarthritis, unspecified site; F51.04 Psychophysiologic insomnia; Z87.01 Personal history of pneumonia (recurrent); Z99.81 Dependence on supplemental oxygen; Z87.891 Personal history of nicotine dependence; Z87.440 Personal history of urinary (tract) infections; F41.9 Anxiety disorder, unspecified; Z88.8 Allergy status to other drugs, medicaments and biological substances; Z79.899 Other long term (current) drug therapy; Z88.1 Allergy status to other antibiotic agents; Z88.0 Allergy status to penicillin; Z80.52 Family history of malignant neoplasm of bladder; Z80.1 Family history of malignant neoplasm of trachea, bronchus and lung; Z80.3 Family history of malignant neoplasm of breast
CPT/HCPCS: 36415; 71046; 80053; 82550; 82553; 83735; 83880; 84484; 85025; 85027; 85379; 85610; 85730; 93005; 94640; 94760; 96361; 96365; 96366; 96375; 96376; 99291

== ENCOUNTER 2017-06-09 14:10 | Inpatient (IN) | payer BC ==
[2017-06-09] MEDS ORDERED: SODIUM CHLORIDE 0.9% 1,000 ML IV STA (14:44)
[2017-06-09] MEDS ORDERED: IPRATROPIUM-ALBUTEROL 3 ML NEB INHALATION STA ×2 (14:44→16:01)
[2017-06-09] MEDS ORDERED: methylPREDNISolone SOD SUCCI 125 MG/2 ML VIAL IV STA (14:44)
--- NOTE | 2017-06-09 14:49 | ED ---
General Adult HPI - General Source: patient, RN notes reviewed, old records reviewed Mode of arrival: wheelchair Limitations: no limitations <Trey Hooper - Last Filed: 06/09/17 16:02> <Ernesto Linder - Last Filed: 06/09/17 16:11> - General Chief complaint: Shortness of Breath Stated complaint: TOD Time Seen by Provider: 06/09/17 14:38 - History of Present Illness Initial comments: Patient is a 62-year-old female with significant past medical history for COPD, presenting to the emergency room today with chief complaint of increased shortness breath. Patient is to some pain across the lower abdomen as well. She states that the symptoms started a few weeks ago. Was recently admitted released from the hospital just 2 days ago. Since she's currently on steroids but is not feeling any better at home. Has been using breathing treatments with little relief. Patient states not on any antibiotics. She denies any complaints or symptoms at this time. Patient denies any recent fever, chills, chest pain, back pain, nausea or vomiting, numbness or tingling, dysuria or hematuria, constipation or diarrhea, headaches or visual changes, or any other complaints. (Trey Hooper) - Related Data Home Medications Medication Instructions Recorded Confirmed Tiotropium [place] [Spiriva 1 cap INHALATION RT-DAILY 12/11/14 06/09/17 Respimat] Arformoterol Tartrate [Brovana] 15 mcg INHALATION RT-BID 04/14/15 06/09/17 buPROPion SR [Wellbutrin SR] 150 mg PO BID 04/14/15 06/09/17 Albuterol Nebulized [Ventolin 2.5 mg INHALATION RT-BID 05/02/15 06/09/17 Nebulized] ALPRAZolam [Xanax] 0.25 mg PO QID PRN 09/03/16 06/09/17 Albuterol Inhaler [Ventolin Hfa 2 puff INHALATION RT-QID PRN 09/03/16 06/09/17 Inhaler] Metoprolol Tartrate 25 mg PO BID 09/03/16 06/09/17 predniSONE 5 mg PO DAILY 06/09/17 06/09/17 predniSONE See Taper PO DAILY 06/09/17 06/09/17 Previous Rx's Medication Instructions Recorded Budesonide [Pulmicort] 0.5 mg INHALATION RT-BID nebu 12/17/14 Allergies Allergy/AdvReac Type Severity Reaction Status Date / Time levofloxacin [From Levaquin] Allergy Rash/Hives Verified 06/09/17 14:39 montelukast [From Singulair] Allergy Itching Verified 06/09/17 14:39 Penicillins Allergy Rash/Hives Verified 06/09/17 14:39 Review of Systems ROS Other: All systems not noted in ROS Statement are negative. <Trey Hooper - Last Filed: 06/09/17 16:02> ROS Other: All systems not noted in ROS Statement are negative. <Ernesto Linder - Last Filed: 06/09/17 16:11> ROS Statement: Those systems with pertinent positive or pertinent negative responses have been documented in the HPI. Past Medical History Past Medical History: COPD, Osteoarthritis (OA), Pneumonia Additional Past Medical History / Comment(s): HOME 02 2 LITERS N/C, UTI-ECOLI, EDENTULOUS, PAST FX TO A VERTEBRE-SINCE HEALED History of Any Multi-Drug Resistant Organisms: None Reported Past Surgical History: Appendectomy Additional Past Surgical History / Comment(s): LASER EYE SX Past Anesthesia/Blood Transfusion Reactions: No Reported Reaction Past Psychological History: Anxiety Smoking Status: Former smoker Past Alcohol Use History: None Reported Past Drug Use History: None Reported - Past Family History Mother Family Medical History: Cancer Additional Family Medical History / Comment(s): breast/BLADDER CA Father Family Medical History: Cancer Additional Family Medical History / Comment(s): lung ca, BRAIN TUMORS <Trey Hooper - Last Filed: 06/09/17 16:02> General Exam Limitations: no limitations <Trey Hooper - Last Filed: 06/09/17 16:02> <Ernesto Linder - Last Filed: 06/09/17 16:11> - General Exam Comments Initial Comments: General: The patient is awake and alert, in no distress, and does not appear acutely ill. Eye: Pupils are equal, round and reactive to light, extra-ocular movements are intact. No nystagmus. There is normal conjunctiva bilaterally. No signs of icterus. Ears, nose, mouth and throat: There are moist mucous membranes and no oral lesions. Neck: The neck is supple, there is no tenderness or JVD. Cardiovascular: There is a regular rate and rhythm. No murmur, rub or gallop is appreciated. Respiratory: Decreased breath sounds bilaterally. respirations are non-labored , breath sounds are equal. No stridor, rales, or rhonchi. Musculoskeletal: Normal ROM, no tenderness. Strength 5/5. Sensation intact. Pulses equal bilaterally 2+. Neurological: A&O x 3. CN II-XII intact, There are no obvious motor or sensory deficits. Coordination appears grossly intact. Speech is normal. Skin: Skin is warm and dry and no rashes or lesions are noted. Psychiatric: Cooperative, appropriate mood & affect, normal judgment. (Trey Hooper) Course <Trey Hooper - Last Filed: 06/09/17 16:02> <Ernesto Linder - Last Filed: 06/09/17 16:11> Vital Signs 06/09/17 06/09/17 06/09/17 14:26 15:28 15:45 Temperature 98.0 F Pulse Rate 75 82 80 Respiratory 18 18 Rate Blood Pressure 108/58 96/51 O2 Sat by Pulse 93 L 97 Oximetry 06/09/17 15:56 Temperature Pulse Rate 84 Respiratory Rate Blood Pressure O2 Sat by Pulse Oximetry - Reevaluation(s) Reevaluation #1: 06/09/17 16:10 PA supervision: I did proceed a [id number] evaluation the patient did discuss the findings with her and her family. She still demonstrates markedly diminished breath sounds with difficulty breathing. She will be admitted the case was discussed with the hospitalist. (Ernesto Linder) Medical Decision Making - Lab Data Result diagrams: 06/09/17 14:45 06/09/17 14:45 <Trey Hooper - Last Filed: 06/09/17 16:02> - Lab Data Result diagrams: 06/09/17 14:45 06/09/17 14:45 <Ernesto Linder - Last Filed: 06/09/17 16:11> - Medical Decision Making Patient's labs reviewed does show 27,000 white count. Previous admission showed mild elevation patient has been on steroids. Patient's chest x-ray showing no sign of pneumonia. Patient still experiencing some shortness of breath. EKG shows no acute changes. Patient will be admitted to the hospital for COPD exacerbation. (Trey Hooper) - Lab Data Lab Results 03/06/09/17 06/09/17 Range/Units 14:45 14:45 14:45 WBC 27.5 H* (3.8-10.6) k/uL RBC 4.83 (3.80-5.40) m/uL Hgb 14.5 (11.4-16.0) gm/dL Hct 44.3 (34.0-46.0) % MCV 91.6 (80.0-100.0) fL MCH 29.9 (25.0-35.0) pg MCHC 32.7 (31.0-37.0) g/dL RDW 13.8 (11.5-15.5) % Plt Count 189 (150-450) k/uL Neutrophils % 91 % Lymphocytes % 5 % Monocytes % 4 % Eosinophils % 0 % Basophils % 0 % Neutrophils # 24.9 H (1.3-7.7) k/uL Lymphocytes # 1.3 (1.0-4.8) k/uL Monocytes # 1.1 H (0-1.0) k/uL Eosinophils # 0.1 (0-0.7) k/uL Basophils # 0.0 (0-0.2) k/uL Manual Slide Review Performed Toxic Granulation Present RBC Morphology Normal PT (9.0-12.0) sec INR (<1.2) APTT (22.0-30.0) sec Sodium 133 L (137-145) mmol/L Potassium 4.7 (3.5-5.1) mmol/L Chloride 96 L (98-107) mmol/L Carbon Dioxide 29 (22-30) mmol/L Anion Gap 8 mmol/L BUN 33 H (7-17) mg/dL Creatinine 0.80 (0.52-1.04) mg/dL Est GFR (CKD-EPI)AfAm >90 (>60 ml/min/1.73 sqM) Est GFR (CKD-EPI)NonAf 79 (>60 ml/min/1.73 sqM) Glucose 133 H (74-99) mg/dL Calcium 9.7 (8.4-10.2) mg/dL Total Bilirubin 0.7 (0.2-1.3) mg/dL AST 20 (14-36) U/L ALT 31 (9-52) U/L Alkaline Phosphatase 46 (38-126) U/L Total Creatine Kinase 30 (30-135) U/L CK-MB (CK-2) 0.6 (0.0-2.4) ng/mL CK-MB (CK-2) Rel Index 2.0 Troponin I <0.012 (0.000-0.034) ng/mL NT-Pro-B Natriuret Pep pg/mL Total Protein 6.5 (6.3-8.2) g/dL Albumin 4.1 (3.5-5.0) g/dL 06/09/17 06/09/17 Range/Units 14:45 14:45 WBC (3.8-10.6) k/uL RBC (3.80-5.40) m/uL Hgb (11.4-16.0) gm/dL Hct (34.0-46.0) % MCV (80.0-100.0) fL MCH (25.0-35.0) pg MCHC (31.0-37.0) g/dL RDW (11.5-15.5) % Plt Count (150-450) k/uL Neutrophils % % Lymphocytes % % Monocytes % % Eosinophils % % Basophils % % Neutrophils # (1.3-7.7) k/uL Lymphocytes # (1.0-4.8) k/uL Monocytes # (0-1.0) k/uL Eosinophils # (0-0.7) k/uL Basophils # (0-0.2) k/uL Manual Slide Review Toxic Granulation RBC Morphology PT 10.2 (9.0-12.0) sec INR 1.0 (<1.2) APTT 24.4 (22.0-30.0) sec Sodium (137-145) mmol/L Potassium (3.5-5.1) mmol/L Chloride (98-107) mmol/L Carbon Dioxide (22-30) mmol/L Anion Gap mmol/L BUN (7-17) mg/dL Creatinine (0.52-1.04) mg/dL Est GFR (CKD-EPI)AfAm (>60 ml/min/1.73 sqM) Est GFR (CKD-EPI)NonAf (>60 ml/min/1.73 sqM) Glucose (74-99) mg/dL Calcium (8.4-10.2) mg/dL Total Bilirubin (0.2-1.3) mg/dL AST (14-36) U/L ALT (9-52) U/L Alkaline Phosphatase (38-126) U/L Total Creatine Kinase (30-135) U/L CK-MB (CK-2) (0.0-2.4) ng/mL CK-MB (CK-2) Rel Index Troponin I (0.000-0.034) ng/mL NT-Pro-B Natriuret Pep 498 pg/mL Total Protein (6.3-8.2) g/dL Albumin (3.5-5.0) g/dL Disposition Time of Disposition: 16:03 <Trey Hooper - Last Filed: 06/09/17 16:02> <Ernesto Linder - Last Filed: 06/09/17 16:11> Clinical Impression: COPD exacerbation Disposition: ADMITTED IP TO THIS HOSP Condition: Stable Referrals: Kurtis Piña MD [Primary Care Provider] - 1-2 days
[2017-06-09 15:07] LABS: Basophils % (A) 0 %; Eosinophils # (A) 0.1 k/uL (0-0.7); Eosinophils % (A) 0 %; HCT 44.3 % (34.0-46.0); HGB 14.5 gm/dL (11.4-16.0); Lymphocytes # (A) 1.3 k/uL (1.0-4.8); Lymphocytes % (A) 5 %; MCH 29.9 pg (25.0-35.0); MCHC 32.7 g/dL (31.0-37.0); MCV 91.6 fL (80.0-100.0); Mean Platelet Volume 8.3; Monocytes # (A) 1.1 k/uL (0-1.0); Monocytes % (A) 4 %; Neutrophils # (A) 24.9 k/uL (1.3-7.7); Neutrophils % (A) 91 %; Platelet Count 189 k/uL (150-450); RBC 4.83 m/uL (3.80-5.40); RDW 13.8 % (11.5-15.5)
--- NOTE | 2017-06-09 15:12 | XR ---
EXAMINATION TYPE: XR chest 2V DATE OF EXAM: 06/09/2017 COMPARISON: 06/03/2017 HISTORY: Shortness of breath TECHNIQUE: Frontal and lateral views of the chest are obtained. FINDINGS: There is extensive bullous emphysematous changes with flattening of diaphragms and increase d anterior posterior diameter of the chest. There is no focal air space opacity, pleural effusion, or pneumothorax seen. The cardiac silhouette size is within normal limits. Enlargement of the justin fa vors underlying pulmonary arterial hypertension. The osseous structures are intact. Mild multilevel d egenerative changes of the thoracic spine are seen. IMPRESSION: No new focal consolidation to suggest pneumonia. Extensive background bullous emphysema and findings suggesting pulmonary arterial hypertension.
[2017-06-09 15:13] LABS: Partial Thromboplastin Time 24.4 sec (22.0-30.0); Prothrombin Time 10.2 sec (9.0-12.0); WBC 27.5 k/uL (3.8-10.6)
[2017-06-09 15:15] LABS: ALT 31 U/L (9-52); AST 20 U/L (14-36); Albumin 4.1 g/dL (3.5-5.0); Alkaline Phosphatase 46 U/L (38-126); Anion Gap 8 mmol/L; Blood Urea Nitrogen 33 mg/dL (7-17); Calcium 9.7 mg/dL (8.4-10.2); Carbon Dioxide 29 mmol/L (22-30); Chloride 96 mmol/L (98-107); Glucose 133 mg/dL (74-99); Potassium 4.7 mmol/L (3.5-5.1); Sodium 133 mmol/L (137-145); Total Bilirubin 0.7 mg/dL (0.2-1.3); Total Protein 6.5 g/dL (6.3-8.2)
[2017-06-09 15:20] LABS: Creatine Kinase 30 U/L (30-135)
[2017-06-09 15:21] LABS: Toxic Granulation Present
[2017-06-09 15:33] LABS: Creatine Kinase MB 0.6 ng/mL (0.0-2.4); Troponin I <0.012 ng/mL (0.000-0.034)
[2017-06-09] MEDS ORDERED: IPRATROPIUM-ALBUTEROL 3 ML NEB INHALATION PRN (16:09)
[2017-06-09] MEDS ORDERED: ACETAMINOPHEN TAB 500 MG TAB PO PRN (18:09)
[2017-06-09] MEDS ORDERED: TEMAZEPAM 15 MG CAP PO PRN (18:09)
[2017-06-09] MEDS: cefTRIAXone IN SWFI 1,000 MG/10 ML SYRINGE IVP SCH (18:49)
[2017-06-09] MEDS ORDERED: FORMOTEROL FUMARATE 20 MCG/2 ML NEBU INHALATION SCH (20:00)
[2017-06-09] MEDS: FORMOTEROL FUMARATE 20 MCG/2 ML NEBU INHALATION SCH (20:54)
[2017-06-09] MEDS: IPRATROPIUM-ALBUTEROL 3 ML NEB INHALATION SCH (20:54)
[2017-06-09] MEDS: BUDESONIDE 0.5 MG/2 ML NEBU INHALATION SCH (20:54)
[2017-06-09 21:28] LABS: Glucose,Whole Blood 220 mg/dL (75-99)
[2017-06-09] MEDS: buPROPion SR 150 MG TABLET.ER PO SCH ×2 (21:35→21:38)
[2017-06-09] MEDS: METOPROLOL TARTRATE 25 MG TAB PO SCH (21:36)
[2017-06-09] MEDS: HEPARIN SODIUM,PORCINE 5,000 UNIT/ML 1 ML VIAL SQ SCH ×2 (21:36→21:37)
[2017-06-09] MEDS: INSULIN ASPART 100 UNIT/ML 1 ML 10 ML VIAL SQ SCH (21:36)
[2017-06-09] MEDS: ALPRAZolam 0.25 MG TAB PO PRN (21:42)
--- NOTE | 2017-06-09 23:30 | HP ---
HISTORY AND PHYSICAL DATE OF SERVICE: 06/09/2017. I am covering for Dr. Piña. CHIEF COMPLAINT: Shortness of breath. HISTORY OF PRESENT ILLNESS: This 62-year-old woman with a past medical history of COPD, history of DJD, history pneumonia, history of chronic hypoxic respiratory failure, being followed by Dr. Piña in the outpatient setting. The patient was recently admitted and discharged. Patient is currently coming to the emergency room with increasing shortness of breath. The patient also complains of vague discomfort in the both breast area. The patient is not feeling well. The patient came to [facility] and was admitted for further evaluation. There is no history of fever, rigors. No headache, loss of consciousness or seizures. PAST MEDICAL HISTORY: COPD, DJD, history of chronic hypoxic respiratory failure, history of anxiety. MEDICATIONS: 1. Prednisone taper. 2. Wellbutrin XR 150 mg p.o. b.i.d. 3. Spiriva 1 puff daily. 4. Metoprolol 25 mg p.o. b.i.d. 5. Pulmicort 0.5 b.i.d. 6. Brovana 150 mcg b.i.d. 7. Ventolin 2.5 b.i.d. 8. Ventolin HFA 2 puffs q.i.d. p.r.n. 9. Xanax 0.5 q.i.d. p.r.n. ALLERGIES: LEVAQUIN, SINGULAIR, PENICILLIN. FAMILY HISTORY: History of breast cancer in the family and bladder cancer in the family. SOCIAL HISTORY: Previous history of smoking. No history of current smoking or alcohol intake. REVIEW OF SYSTEMS: ENT: No diminished hearing or vision. CARDIOVASCULAR: Palpitations. RESPIRATORY: As mentioned earlier. GI: As mentioned. : No dysuria. NERVOUS SYSTEM: No numbness or weakness. MUSCULOSKELETAL: As mentioned earlier. HEMATOLOGY/ONCOLOGY: No history of anemia. ENDOCRINE: No history of hypothyroidism or diabetes. PSYCH: As mentioned. PHYSICAL EXAM: VITAL SIGNS: Pulse 88, blood pressure 100/60, respirations 16, temperature 98.2, pulse ox 94% room air. HEENT: Conjunctivae normal. Oral mucosa moist. NECK: No JVD. No lymph node enlargement. CARDIOVASCULAR: S1, S2. LUNGS: Breath sounds diminished in the bases. Few scattered rhonchi and crackles. Expiratory wheezing also present. ABDOMEN: Soft, nontender. No mass palpable. EXTREMITIES: No edema, no swelling. NERVOUS SYSTEM: Higher functions as mentioned earlier. Moves all four limbs. No focal deficits LYMPHATICS: No ulcers or rashes. LAB STUDIES: Hemoglobin is 14.2. Sodium 130. ASSESSMENT: 1. Chronic obstructive pulmonary disease acute exacerbation with acute purulent tracheobronchitis. 2. Increased WBC. 3. Mild hyponatremia. 4. History of degenerative joint disease. 5. History of pneumonia. 6. History of chronic hypoxic respiratory failure on home O2, 2 L nasal cannula. 7. Remote history of nicotine dependence. RECOMMENDATION AND DISCUSSION: In this 62-year-old woman who presented with multiple medical issues, at this time I recommend to continue current management and treatment. I would optimize the bronchodilator treatment. Resume the home medication. IV steroids. Otherwise I would also recommend a D-dimer and if D-dimer is high I would also recommend a CT angio of the chest. Other than that, pulmonary consult with Dr. Huang is also considered. Dr. Piña will follow. MMODL / IJN: [id number] /
[2017-06-10] MEDS: methylPREDNISolone SOD SUCCI 125 MG/2 ML VIAL IV SCH ×4 (00:06→17:35)
[2017-06-10 04:18] LABS: Appearance,Urine Clear (Clear); Bilirubin,Urine Negative (Negative); Blood,Urine Trace (Negative); Color,Urine Light Yellow; Glucose,Urine (UA) Negative (Negative); Ketones,Urine Negative (Negative); Leukocyte Esterase,Urine Negative (Negative); Nitrite,Urine Negative (Negative); Protein,Urine Negative (Negative); RBC,Urine 1 /hpf (0-5); Specific Gravity,Urine 1.013 (1.001-1.035); Squamous Epithelial Cell,Urine <1 /hpf (0-4); Urobilinogen,Urine <2.0 mg/dL (<2.0); WBC,Urine <1 /hpf (0-5)
[2017-06-10] MEDS: ALPRAZolam 0.25 MG TAB PO PRN ×3 (04:19→20:54)
--- NOTE | 2017-06-10 07:49 | P.PN ---
Subjective Progress Note Date: 06/10/17 Principal diagnosis: Acute exacerbation of COPD This is a continue progress on a 62-year-old white female essentially unfortunately, readmitted for exacerbation of COPD. After the third day of discharge on a short steroid taper, she had difficulty getting out of bed. Unfortunately, she states that she is at least a 18-71-dnii-year smoker. The patient states no voiding difficulties. No significant nausea, vomiting or diarrhea is noted. She seems to be stable with reintroduction of steroid therapy. Otherwise, she is 2-3 L O2 dependent at home. No significant cough. X-ray does not show significant infiltrate. No significant voiding difficulties otherwise stated. Objective - Vital Signs Vital signs: Vital Signs Temp 97.3 F L 06/10/17 01:44 Pulse 60 06/10/17 01:44 Resp 12 06/10/17 01:44 BP 103/64 06/10/17 02:00 Pulse Ox 99 06/10/17 01:44 Intake & Output 06/09/17 06/10/17 06/10/17 18:59 06:59 18:59 Weight 54.431 kg Other: Voiding Method Toilet # Voids 2 - Constitutional General appearance: Present: thin - EENT Eyes: Absent: abnormal pupil - Respiratory Respiratory: bilateral: diminished, prolonged expiration - Cardiovascular Rhythm: regular Heart sounds: normal: S1, S2 Abnormal Heart Sounds: Absent: S3 Gallop - Gastrointestinal General gastrointestinal: Present: soft. Absent: tenderness - Psychiatric Psychiatric: Present: A&O x's 3, appropriate affect, intact judgment & insight - Labs CBC & Chem 7: 06/09/17 14:45 06/09/17 14:45 Labs: Abnormal Lab Results - Last 24 Hours (Table) 06/09/17 06/09/17 06/09/17 Range/Units 14:45 14:45 21:26 WBC 27.5 H* (3.8-10.6) k/uL Neutrophils # 24.9 H (1.3-7.7) k/uL Monocytes # 1.1 H (0-1.0) k/uL Sodium 133 L (137-145) mmol/L Chloride 96 L (98-107) mmol/L BUN 33 H (7-17) mg/dL Glucose 133 H (74-99) mg/dL POC Glucose (mg/dL) 220 H (75-99) mg/dL Urine Blood (Negative) 06/10/17 Range/Units 03:45 WBC (3.8-10.6) k/uL Neutrophils # (1.3-7.7) k/uL Monocytes # (0-1.0) k/uL Sodium (137-145) mmol/L Chloride (98-107) mmol/L BUN (7-17) mg/dL Glucose (74-99) mg/dL POC Glucose (mg/dL) (75-99) mg/dL Urine Blood Trace H (Negative) Assessment and Plan (1) Acute exacerbation of chronic obstructive airways disease Current Visit: No Status: Acute Code(s): J44.1 - CHRONIC OBSTRUCTIVE PULMONARY DISEASE W (ACUTE) EXACERBATION SNOMED Code(s): 427473637 Plan: Continue current regimen of steroid treatment. Check CBC and CMP in a.m. Check echocardiogram to assess pulmonary hypertension affect. We'll continue to follow with pulmonology. Prognosis is guarded secondary to her multiple comorbidities. Time with Patient: Less than 30
[2017-06-10 07:53] LABS: Glucose,Whole Blood 150 mg/dL (75-99)
[2017-06-10] MEDS: FORMOTEROL FUMARATE 20 MCG/2 ML NEBU INHALATION SCH ×2 (08:08→21:22)
[2017-06-10] MEDS: IPRATROPIUM-ALBUTEROL 3 ML NEB INHALATION SCH ×4 (08:08→21:15)
[2017-06-10] MEDS: BUDESONIDE 0.5 MG/2 ML NEBU INHALATION SCH ×2 (08:08→21:14)
[2017-06-10] MEDS: cefTRIAXone IN SWFI 1,000 MG/10 ML SYRINGE IVP SCH (08:18)
[2017-06-10] MEDS: METOPROLOL TARTRATE 25 MG TAB PO SCH ×2 (08:19→20:55)
[2017-06-10] MEDS: INSULIN ASPART 100 UNIT/ML 1 ML 10 ML VIAL SQ SCH ×4 (08:19→22:20)
[2017-06-10] MEDS: buPROPion SR 150 MG TABLET.ER PO SCH ×2 (08:19→20:55)
[2017-06-10] MEDS: PANTOPRAZOLE 40 MG TABLET PO SCH (08:19)
[2017-06-10] MEDS: HEPARIN SODIUM,PORCINE 5,000 UNIT/ML 1 ML VIAL SQ SCH ×2 (08:19→20:55)
[2017-06-10 10:48] LABS: ALT 27 U/L (9-52); AST 14 U/L (14-36); Albumin 3.7 g/dL (3.5-5.0); Alkaline Phosphatase 53 U/L (38-126); Anion Gap 8 mmol/L; Blood Urea Nitrogen 30 mg/dL (7-17); Calcium 9.2 mg/dL (8.4-10.2); Carbon Dioxide 32 mmol/L (22-30); Chloride 96 mmol/L (98-107); Glucose 141 mg/dL (74-99); Potassium 4.4 mmol/L (3.5-5.1); Sodium 136 mmol/L (137-145); Total Bilirubin 0.4 mg/dL (0.2-1.3); Total Protein 5.9 g/dL (6.3-8.2)
[2017-06-10 11:19] LABS: Glucose,Whole Blood 254 mg/dL (75-99)
[2017-06-10 16:49] LABS: Glucose,Whole Blood 109 mg/dL (75-99)
--- NOTE | 2017-06-10 18:00 | P.CNPUL ---
History of Present Illness Consult date: 06/09/17 (Late entry note) Reason for consult: dyspnea, cough, chest pain, COPD, hypoxemia, pneumonia Chief complaint: Shortness of breath with chest tightness History of present illness: Ms. Anaya is a pleasant 62-year-old with end-stage lung disease secondary due to chronic hypoxic respiratory failure patient has a severe COPD which is oxygen dependent patient also has a history of lung nodule which was monitored and observed for an outpatient setting later on turned around to be resolving pneumonia. Patient recently discharged from the hospital after several days stay for cough shortness of breath was on IV steroids and antibiotics clinically improved significantly patient felt better for a 1-2 days however started feeling increasing shortness of breath chest tightness and cough with sputum production which was white to yellow in color with those problem patient came into emergency department she was found to have a chest x-ray consistent with COPD no acute infiltrate identified however significant leukocytosis was noted patient also had a component of prerenal azotemia with elevated BUNs and has been admitted into the hospital currently being gently rehydrated treated with antibiotics and the steroids and breathing treatments. A d-dimer was performed which was normal Review of Systems All systems: negative Past Medical History Past Medical History: COPD, Osteoarthritis (OA), Pneumonia Additional Past Medical History / Comment(s): HOME 02 2 LITERS N/C, UTI-ECOLI, EDENTULOUS, previous spine fracture History of Any Multi-Drug Resistant Organisms: None Reported Past Surgical History: Appendectomy Additional Past Surgical History / Comment(s): LASER EYE SX Past Anesthesia/Blood Transfusion Reactions: No Reported Reaction Past Psychological History: Anxiety Additional Psychological History / Comment(s): PT LIVES WITH HER DAUGHER IN A SINGLE LEVEL HOME THAT HAS 4 PORCH STEPS AND A BASEMENT W/12 STEPS. NO OUTSIDE SERVICES RECIEVED. HAS HOME O2 AND A NEBULIZER. PT IS INDEPENDANT WHEN UP. 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 Smoking Status: Former smoker Past Alcohol Use History: None Reported Additional Past Alcohol Use History / Comment(s): STARTED SMOKING AROUND 1976- 2 PPD, QUIT . Past Drug Use History: None Reported - Past Family History Mother Family Medical History: Cancer Additional Family Medical History / Comment(s): breast/BLADDER CA Father Family Medical History: Cancer Additional Family Medical History / Comment(s): lung ca, BRAIN TUMORS Medications and Allergies Home Medications Medication Instructions Recorded Confirmed Type Tiotropium [place] [Spiriva 1 cap INHALATION RT-DAILY 12/11/14 06/09/17 History Respimat] Budesonide [Pulmicort] 0.5 mg INHALATION RT-BID nebu 12/17/14 06/09/17 Rx Arformoterol Tartrate [Brovana] 15 mcg INHALATION RT-BID 04/14/15 06/09/17 History buPROPion SR [Wellbutrin SR] 150 mg PO BID 04/14/15 06/09/17 History Albuterol Nebulized [Ventolin 2.5 mg INHALATION RT-BID 05/02/15 06/09/17 History Nebulized] ALPRAZolam [Xanax] 0.25 mg PO QID PRN 09/03/16 06/09/17 History Albuterol Inhaler [Ventolin Hfa 2 puff INHALATION RT-QID PRN 09/03/16 06/09/17 History Inhaler] Metoprolol Tartrate 25 mg PO BID 09/03/16 06/09/17 History predniSONE 5 mg PO DAILY 06/09/17 06/09/17 History predniSONE See Taper PO DAILY 06/09/17 06/09/17 History Allergies Allergy/AdvReac Type Severity Reaction Status Date / Time levofloxacin [From Levaquin] Allergy Rash/Hives Verified 06/09/17 14:39 montelukast [From Singulair] Allergy Itching Verified 06/09/17 14:39 Penicillins Allergy Rash/Hives Verified 06/09/17 14:39 Physical Exam Vitals: Vital Signs Temp Pulse Pulse Resp BP Pulse Ox 06/10/17 16:54 86 06/10/17 16:44 85 06/10/17 16:04 88 16 06/10/17 14:14 96.8 F L 88 16 126/63 96 06/10/17 12:01 82 06/10/17 11:48 80 06/10/17 08:32 80 06/10/17 08:26 76 06/10/17 08:25 76 06/10/17 08:21 84 18 06/10/17 08:10 70 99 06/10/17 07:00 96.7 F L 84 18 122/85 90 L 06/10/17 02:00 103/64 06/10/17 01:44 97.3 F L 60 12 84/51 99 06/09/17 21:14 80 06/09/17 21:05 76 06/09/17 21:04 76 06/09/17 20:55 77 97 06/09/17 17:57 98.3 F 88 16 100/60 95 Intake and Output 06/10/17 06/10/17 06/10/17 06:59 14:59 22:59 Intake Total 500 Balance 500 Intake: Oral 500 Other: Voiding Method Toilet Toilet # Voids 2 2 # Bowel Movements 1 Weight 54.431 kg 54.431 kg General: The patient is awake and alert, in no distress, Eye: Pupils are equal, round and reactive to light, extra-ocular movements are intact. No nystagmus. There is normal conjunctiva bilaterally. No signs of icterus. Ears, nose, mouth and throat: There are moist mucous membranes and no oral lesions. Neck: The neck is supple, there is no tenderness or JVD. Cardiovascular: There is a regular rate and rhythm. No murmur, rub or gallop is appreciated. Respiratory: Decreased breath sounds bilaterally. respirations are non-labored , breath sounds are equal. No stridor, rales, or rhonchi. Positive bilateral and expiratory fine wheezing are present Musculoskeletal: Normal ROM, no tenderness. Strength 5/5. Sensation intact. Pulses equal bilaterally 2+. Neurological: A&O x 3. CN II-XII intact, There are no obvious motor or sensory deficits. Coordination appears grossly intact. Speech is normal. Skin: Skin is warm and dry and no rashes or lesions are noted. Psychiatric: Cooperative, appropriate mood & affect, normal judgment. Results - Laboratory Findings CBC and BMP: 06/09/17 14:45 06/10/17 08:22 PT/INR, D-dimer PT 10.2 sec (9.0-12.0) 06/09/17 14:45 INR 1.0 (<1.2) 06/09/17 14:45 D-Dimer 0.54 mg/L FEU (<0.60) 06/09/17 14:45 Abnormal lab findings: Abnormal Labs 06/09/17 06/09/17 06/09/17 14:45 14:45 21:26 WBC 27.5 H* Neutrophils # 24.9 H Monocytes # 1.1 H Sodium 133 L Chloride 96 L Carbon Dioxide BUN 33 H Glucose 133 H POC Glucose (mg/dL) 220 H Total Protein Urine Blood 06/10/17 06/10/17 06/10/17 03:45 07:51 08:22 WBC Neutrophils # Monocytes # Sodium 136 L Chloride 96 L Carbon Dioxide 32 H BUN 30 H Glucose 141 H POC Glucose (mg/dL) 150 H Total Protein 5.9 L Urine Blood Trace H 06/10/17 06/10/17 11:16 16:45 WBC Neutrophils # Monocytes # Sodium Chloride Carbon Dioxide BUN Glucose POC Glucose (mg/dL) 254 H 109 H Total Protein Urine Blood - Diagnostic Findings Chest x-ray: report reviewed, image reviewed (Finding consistent with severe COPD no acute infiltrate identified) Assessment and Plan Assessment: Acute COPD exacerbation Acute on chronic hypoxic respiratory failure Purulent tracheobronchitis occult pneumonia cannot be excluded Leukocytosis Intravascular volume depletion and dehydration Mood disorder and depression with component of significant generalized anxiety disorder Agree with gentle rehydration, antibiotics breathing treatments and steroids will follow clinical course closely if able to obtain a sputum sent for Gram stain and culture and repeat chest x-ray in next 48 hours Time with Patient: Greater than 30
--- NOTE | 2017-06-10 18:04 | P.PN ---
Subjective Progress Note Date: 06/10/17 Principal diagnosis: Acute COPD exacerbation, acute on chronic hypoxic respiratory failure, and leukocytosis, purulent tracheobronchitis 06/10/2017, patient seen and evaluated examined during the rounds her cough congestion shortness of breath slightly improved denies any pain anymore breathing is still difficult her oxygen saturation is stable noted that her d- dimer is normal, patient appears to be responding with the steroid antibiotics and breathing treatments will follow Ms. Anaya is a pleasant 62-year-old with end-stage lung disease secondary due to chronic hypoxic respiratory failure patient has a severe COPD which is oxygen dependent patient also has a history of lung nodule which was monitored and observed for an outpatient setting later on turned around to be resolving pneumonia. Patient recently discharged from the hospital after several days stay for cough shortness of breath was on IV steroids and antibiotics clinically improved significantly patient felt better for a 1-2 days however started feeling increasing shortness of breath chest tightness and cough with sputum production which was white to yellow in color with those problem patient came into emergency department she was found to have a chest x-ray consistent with COPD no acute infiltrate identified however significant leukocytosis was noted patient also had a component of prerenal azotemia with elevated BUNs and has been admitted into the hospital currently being gently rehydrated treated with antibiotics and the steroids and breathing treatments. A d-dimer was performed which was normal Objective - Vital Signs Vital signs: Vital Signs Temp 96.8 F L 06/10/17 14:14 Pulse 86 06/10/17 16:54 Resp 16 06/10/17 16:04 BP 126/63 06/10/17 14:14 Pulse Ox 96 06/10/17 14:14 Intake & Output 06/09/17 06/10/17 06/10/17 18:59 06:59 18:59 Intake Total 500 Balance 500 Weight 54.431 kg 54.431 kg Intake: Oral 500 Other: Voiding Method Toilet Toilet # Voids 2 2 # Bowel Movements 1 - Exam eneral: The patient is awake and alert, in no distress, Eye: Pupils are equal, round and reactive to light, extra-ocular movements are intact. No nystagmus. There is normal conjunctiva bilaterally. No signs of icterus. Ears, nose, mouth and throat: There are moist mucous membranes and no oral lesions. Neck: The neck is supple, there is no tenderness or JVD. Cardiovascular: There is a regular rate and rhythm. No murmur, rub or gallop is appreciated. Respiratory: Decreased breath sounds bilaterally. respirations are non-labored , breath sounds are equal. No stridor, rales, or rhonchi. Positive bilateral and expiratory fine wheezing are present, overall air movement and respiratory status appears to have improved compared to yesterday exam Musculoskeletal: Normal ROM, no tenderness. Strength 5/5. Sensation intact. Pulses equal bilaterally 2+. Neurological: A&O x 3. CN II-XII intact, There are no obvious motor or sensory deficits. Coordination appears grossly intact. Speech is normal. Skin: Skin is warm and dry and no rashes or lesions are noted. Psychiatric: Cooperative, appropriate mood & affect, normal judgment - Labs CBC & Chem 7: 06/09/17 14:45 06/10/17 08:22 Labs: Abnormal Lab Results - Last 24 Hours (Table) 06/09/17 06/10/17 06/10/17 Range/Units 21:26 03:45 07:51 Sodium (137-145) mmol/L Chloride (98-107) mmol/L Carbon Dioxide (22-30) mmol/L BUN (7-17) mg/dL Glucose (74-99) mg/dL POC Glucose (mg/dL) 220 H 150 H (75-99) mg/dL Total Protein (6.3-8.2) g/dL Urine Blood Trace H (Negative) 06/10/17 06/10/17 06/10/17 Range/Units 08:22 11:16 16:45 Sodium 136 L (137-145) mmol/L Chloride 96 L (98-107) mmol/L Carbon Dioxide 32 H (22-30) mmol/L BUN 30 H (7-17) mg/dL Glucose 141 H (74-99) mg/dL POC Glucose (mg/dL) 254 H 109 H (75-99) mg/dL Total Protein 5.9 L (6.3-8.2) g/dL Urine Blood (Negative) Assessment and Plan Assessment: Acute COPD exacerbation Acute on chronic hypoxic respiratory failure Purulent tracheobronchitis occult pneumonia cannot be excluded Leukocytosis Intravascular volume depletion and dehydration Mood disorder and depression with component of significant generalized anxiety disorder Plan: Will obtain a follow-up chest x-ray, repeat labs tomorrow if able to obtain will send a sputum for Gram stain and culture Time with Patient: Greater than 30
--- NOTE | 2017-06-10 19:13 | ECHOF ---
Referral Reason:COPD, pulmonary hypertension MEASUREMENTS -------- HEIGHT: 157.5 cm WEIGHT: 54.4 kg BP: 122/85 RVIDd: 3.0 cm (< 3.3) IVSd: 0.9 cm (0.6 - 1.1) LVIDd: 2.9 cm (3.9 - 5.3) LVPWd: 1.1 cm (0.6 - 1.1) IVSs: 1.6 cm LVIDs: 1.6 cm LVPWs: 1.5 cm MV EXCURSION: 12.148 mm (> 18.000) MV EF SLOPE: 66 mm/s (70 - 150) EPSS: 0.7 cm MV E Eulalio: 0.60 m/s MV DecT: 201 ms MV A Eulalio: 0.69 m/s MV E/A Ratio: 0.87 AR PHT: 654 ms RAP: 5.00 mmHg RVSP: 23.73 mmHg FINDINGS -------- Sinus rhythm. This was a technically difficult study with suboptimal views. Pt has severe COPD. Images taken from subcoastals. The left ventricular size is normal. Left ventricular wall thickness is normal. Overall left vent ricular systolic function is normal with, an EF between 55 - 60 %. The right ventricle is normal in size and function. The left atrium is normal in size. The right atrium is normal in size. The aortic valve is trileaflet, and appears structurally normal. No aortic stenosis or regurgitation. Trace amount of aortic regurgitation. There is trace mitral regurgitation. Mild tricuspid regurgitation present. The right ventricular systolic pressure, as measured by Doppl er, is 23.73mmHg. Pulmonic valve appears structurally normal. The aortic root size is normal. Normal inferior vena cava with normal inspiratory collapse consistent with estimated right atrial pre ssure of 5 mmHg. The pericardium is normal. CONCLUSIONS -------- 1. Sinus rhythm. 2. This was a technically difficult study with suboptimal views. 3. Pt has severe COPD. Images taken from subcoastals. 4. The left ventricular size is normal. 5. Left ventricular wall thickness is normal. 6. Overall left ventricular systolic function is normal with, an EF between 55 - 60 %. 7. The right ventricle is normal in size and function. 8. The left atrium is normal in size. 9. The right atrium is normal in size. 10. The aortic valve is trileaflet, and appears structurally normal. No aortic stenosis or regurgitat ion. 11. Trace amount of aortic regurgitation. 12. There is trace mitral regurgitation. 13. Mild tricuspid regurgitation present. 14. The right ventricular systolic pressure, as measured by Doppler, is 23.73mmHg. 15. Pulmonic valve appears structurally normal. 16. The aortic root size is normal. 17. Normal inferior vena cava with normal inspiratory collapse consistent with estimated right atrial pressure of 5 mmHg. 18. The pericardium is normal. CONSTRUCTION EQUIPMENT TECHNICIAN: Jigna Coelho RDCS
[2017-06-10 22:08] LABS: Glucose,Whole Blood 178 mg/dL (75-99)
[2017-06-11] MEDS: methylPREDNISolone SOD SUCCI 125 MG/2 ML VIAL IV SCH ×4 (00:25→18:26)
[2017-06-11] MEDS: IPRATROPIUM-ALBUTEROL 3 ML NEB INHALATION SCH ×4 (05:40→21:19)
[2017-06-11] MEDS: FORMOTEROL FUMARATE 20 MCG/2 ML NEBU INHALATION SCH ×2 (05:40→21:19)
[2017-06-11] MEDS: BUDESONIDE 0.5 MG/2 ML NEBU INHALATION SCH ×2 (05:40→21:19)
--- NOTE | 2017-06-11 06:59 | P.PN ---
Subjective Principal diagnosis: Continued shortness of breathcontinuing care. This is a continue present 62-year-old white female with history of severe COPD with exacerbation. She is a long-time 40+ pack year smoker. No voiding difficulties but she does not state significant improvement since yesterday as far as her respiratory status. No significant nausea, vomiting or diarrhea is noted. Objective - Vital Signs Vital signs: Vital Signs Temp 97.4 F L 06/11/17 00:30 Pulse 88 06/11/17 06:07 Resp 20 06/11/17 00:30 BP 101/51 06/11/17 00:30 Pulse Ox 98 06/11/17 00:30 Intake & Output 06/10/17 06/10/17 06/11/17 06:59 18:59 06:59 Intake Total 500 800 Balance 500 800 Weight 54.431 kg Intake: Oral 500 800 Other: Voiding Method Toilet # Voids 2 2 2 # Bowel Movements 1 - Constitutional General appearance: Present: thin - EENT Eyes: Absent: abnormal pupil - Neck Neck: Absent: lymphadenopathy - Respiratory Respiratory: bilateral: CTA - Cardiovascular Rhythm: regular Heart sounds: normal: S1, S2 Abnormal Heart Sounds: Absent: S3 Gallop - Gastrointestinal General gastrointestinal: Present: soft. Absent: tenderness - Psychiatric Psychiatric: Present: A&O x's 3 - Labs CBC & Chem 7: 06/09/17 14:45 06/10/17 08:22 Labs: Abnormal Lab Results - Last 24 Hours (Table) 06/10/17 06/10/17 06/10/17 Range/Units 07:51 08:22 11:16 Sodium 136 L (137-145) mmol/L Chloride 96 L (98-107) mmol/L Carbon Dioxide 32 H (22-30) mmol/L BUN 30 H (7-17) mg/dL Glucose 141 H (74-99) mg/dL POC Glucose (mg/dL) 150 H 254 H (75-99) mg/dL Total Protein 5.9 L (6.3-8.2) g/dL 06/10/17 06/10/17 Range/Units 16:45 22:00 Sodium (137-145) mmol/L Chloride (98-107) mmol/L Carbon Dioxide (22-30) mmol/L BUN (7-17) mg/dL Glucose (74-99) mg/dL POC Glucose (mg/dL) 109 H 178 H (75-99) mg/dL Total Protein (6.3-8.2) g/dL Assessment and Plan (1) Acute exacerbation of chronic obstructive airways disease Current Visit: No Status: Acute Code(s): J44.1 - CHRONIC OBSTRUCTIVE PULMONARY DISEASE W (ACUTE) EXACERBATION SNOMED Code(s): 748906697 Plan: Continue current regimen of steroids. Check CBC and CMP in a.m. Appreciate pulmonology input. Prognosis is somewhat guarded secondary to her severity of disease. We'll continue to follow. Time with Patient: Less than 30
[2017-06-11] MEDS: ALPRAZolam 0.25 MG TAB PO PRN ×3 (07:06→19:58)
[2017-06-11 07:20] LABS: Glucose,Whole Blood 183 mg/dL (75-99)
[2017-06-11 08:10] LABS: Basophils % (A) 0 %; Eosinophils # (A) 0.1 k/uL (0-0.7); Eosinophils % (A) 0 %; HCT 41.8 % (34.0-46.0); HGB 13.7 gm/dL (11.4-16.0); Lymphocytes # (A) 0.6 k/uL (1.0-4.8); Lymphocytes % (A) 3 %; MCHC 32.8 g/dL (31.0-37.0); MCV 91.5 fL (80.0-100.0); Mean Platelet Volume 7.3; Monocytes # (A) 0.5 k/uL (0-1.0); Monocytes % (A) 3 %; Neutrophils % (A) 94 %; Platelet Count 187 k/uL (150-450); RBC 4.57 m/uL (3.80-5.40); RDW 13.8 % (11.5-15.5); WBC 20.2 k/uL (3.8-10.6)
[2017-06-11] MEDS: INSULIN ASPART 100 UNIT/ML 1 ML 10 ML VIAL SQ SCH ×4 (08:12→21:59)
[2017-06-11] MEDS: PANTOPRAZOLE 40 MG TABLET PO SCH (08:12)
[2017-06-11] MEDS: cefTRIAXone IN SWFI 1,000 MG/10 ML SYRINGE IVP SCH (08:13)
[2017-06-11] MEDS: buPROPion SR 150 MG TABLET.ER PO SCH ×2 (08:13→21:59)
[2017-06-11] MEDS: HEPARIN SODIUM,PORCINE 5,000 UNIT/ML 1 ML VIAL SQ SCH ×2 (08:14→21:49)
[2017-06-11] MEDS: METOPROLOL TARTRATE 25 MG TAB PO SCH (08:15)
--- NOTE | 2017-06-11 08:15 | XR ---
EXAMINATION TYPE: XR chest 2V DATE OF EXAM: 06/11/2017 COMPARISON: 06/09/2017 HISTORY: Cough. Follow-up from pneumonia. TECHNIQUE: Frontal and lateral views of the chest are obtained. FINDINGS: Again there is extensive bullous emphysematous changes and findings again suggestive of pu lmonary arterial hypertension with engorgement of hilar vasculature. No new focal consolidation, pleu ral effusion or pneumothorax seen. Cardiomediastinal silhouette is within normal limits. Mild multile belen degenerative changes of the thoracic spine are noted. IMPRESSION: No focal consolidation to suggest pneumonia. Unchanged findings of chronic bullous emphy sematous disease and findings suggesting underlying pulmonary arterial hypertension.
[2017-06-11 08:36] LABS: ALT 24 U/L (9-52); AST 12 U/L (14-36); Albumin 3.5 g/dL (3.5-5.0); Alkaline Phosphatase 63 U/L (38-126); Anion Gap 9 mmol/L; Blood Urea Nitrogen 25 mg/dL (7-17); Calcium 9.3 mg/dL (8.4-10.2); Carbon Dioxide 30 mmol/L (22-30); Chloride 97 mmol/L (98-107); Glucose 189 mg/dL (74-99); Potassium 4.3 mmol/L (3.5-5.1); Sodium 136 mmol/L (137-145); Total Bilirubin 0.4 mg/dL (0.2-1.3); Total Protein 5.7 g/dL (6.3-8.2)
[2017-06-11 12:29] LABS: Glucose,Whole Blood 114 mg/dL (75-99)
[2017-06-11 16:54] LABS: Glucose,Whole Blood 218 mg/dL (75-99)
--- NOTE | 2017-06-11 17:44 | P.PN ---
Subjective Progress Note Date: 06/11/17 Principal diagnosis: Acute COPD exacerbation, acute on chronic hypoxic respiratory failure, and leukocytosis, purulent tracheobronchitis 06/11/2017, patient seen eval examined clinically overall remains unchanged but still of shortness of breath patient is running lately low blood pressure borderline tachycardic patient has been refusing marrow protocol, currently patient is an 25 mg by mouth 2 times a day Will change it to 12.5 twice a day Humidifier as well echocardiogram finding has been reviewed with the patient and his ejection fraction is 55-60% chest x-ray performed earlier today reviewed and compared with the prior x-ray overall remains unchanged, patient has been tolerating breathing treatment antibiotics and IV steroids fairly well , patient has been complaining of muscle ache and pain in the back will apply heating pads, appears to be related to muscle pain of coughing and muscle sprain 06/10/2017, patient seen and evaluated examined during the rounds her cough congestion shortness of breath slightly improved denies any pain anymore breathing is still difficult her oxygen saturation is stable noted that her d- dimer is normal, patient appears to be responding with the steroid antibiotics and breathing treatments will follow Ms. Anaya is a pleasant 62-year-old with end-stage lung disease secondary due to chronic hypoxic respiratory failure patient has a severe COPD which is oxygen dependent patient also has a history of lung nodule which was monitored and observed for an outpatient setting later on turned around to be resolving pneumonia. Patient recently discharged from the hospital after several days stay for cough shortness of breath was on IV steroids and antibiotics clinically improved significantly patient felt better for a 1-2 days however started feeling increasing shortness of breath chest tightness and cough with sputum production which was white to yellow in color with those problem patient came into emergency department she was found to have a chest x-ray consistent with COPD no acute infiltrate identified however significant leukocytosis was noted patient also had a component of prerenal azotemia with elevated BUNs and has been admitted into the hospital currently being gently rehydrated treated with antibiotics and the steroids and breathing treatments. A d-dimer was performed which was normal Objective - Vital Signs Vital signs: Vital Signs Temp 97.7 F 06/11/17 15:00 Pulse 88 06/11/17 16:16 Resp 16 06/11/17 15:00 BP 125/69 06/11/17 15:00 Pulse Ox 99 06/11/17 15:00 Intake & Output 06/10/17 06/11/17 06/11/17 18:59 06:59 18:59 Intake Total 500 800 Balance 500 800 Weight 54.431 kg Intake: Oral 500 800 Other: Voiding Method Toilet # Voids 2 2 4 # Bowel Movements 1 - Exam eneral: The patient is awake and alert, in no distress, Eye: Pupils are equal, round and reactive to light, extra-ocular movements are intact. No nystagmus. There is normal conjunctiva bilaterally. No signs of icterus. Ears, nose, mouth and throat: There are moist mucous membranes and no oral lesions. Neck: The neck is supple, there is no tenderness or JVD. Cardiovascular: There is a regular rate and rhythm. No murmur, rub or gallop is appreciated. Respiratory: Decreased breath sounds bilaterally. respirations are non-labored , breath sounds are equal. No stridor, rales, or rhonchi. Positive bilateral and expiratory fine wheezing are present, overall air movement and respiratory status appears to have improved compared to yesterday exam Musculoskeletal: Normal ROM, no tenderness. Strength 5/5. Sensation intact. Pulses equal bilaterally 2+. Neurological: A&O x 3. CN II-XII intact, There are no obvious motor or sensory deficits. Coordination appears grossly intact. Speech is normal. Skin: Skin is warm and dry and no rashes or lesions are noted. Psychiatric: Cooperative, appropriate mood & affect, normal judgment - Labs CBC & Chem 7: 06/11/17 07:38 06/11/17 07:38 Labs: Abnormal Lab Results - Last 24 Hours (Table) 06/10/17 06/11/17 06/11/17 Range/Units 22:00 07:17 07:38 WBC 20.2 H (3.8-10.6) k/uL Neutrophils # 19.0 H (1.3-7.7) k/uL Lymphocytes # 0.6 L (1.0-4.8) k/uL Sodium (137-145) mmol/L Chloride (98-107) mmol/L BUN (7-17) mg/dL Glucose (74-99) mg/dL POC Glucose (mg/dL) 178 H 183 H (75-99) mg/dL AST (14-36) U/L Total Protein (6.3-8.2) g/dL 06/11/17 06/11/17 06/11/17 Range/Units 07:38 12:26 16:49 WBC (3.8-10.6) k/uL Neutrophils # (1.3-7.7) k/uL Lymphocytes # (1.0-4.8) k/uL Sodium 136 L (137-145) mmol/L Chloride 97 L (98-107) mmol/L BUN 25 H (7-17) mg/dL Glucose 189 H (74-99) mg/dL POC Glucose (mg/dL) 114 H 218 H (75-99) mg/dL AST 12 L (14-36) U/L Total Protein 5.7 L (6.3-8.2) g/dL Assessment and Plan Assessment: Acute COPD exacerbation Acute on chronic hypoxic respiratory failure Purulent tracheobronchitis occult pneumonia cannot be excluded Leukocytosis Intravascular volume depletion and dehydration Mood disorder and depression with component of significant generalized anxiety disorder Plan: Reviewed follow-up chest x-ray, repeat labs follow-up on sputum for Gram stain and culture, continue antibiotics breathing treatments and steroids, and humidifier, maintain patient on DVT and peptic ulcer disease prophylaxis, would lower down the dose of metoprolol tartrate and set up parameters for low blood pressure and bradycardia care plan discussed with the patient at length will follow Time with Patient: Greater than 30
[2017-06-11 21:38] LABS: Glucose,Whole Blood 139 mg/dL (75-99)
[2017-06-11] MEDS: METOPROLOL TARTRATE 12.5 MG TAB PO SCH (22:48)
[2017-06-12] MEDS: methylPREDNISolone SOD SUCCI 125 MG/2 ML VIAL IV SCH ×4 (00:41→17:49)
[2017-06-12] MEDS: ALPRAZolam 0.25 MG TAB PO PRN ×4 (02:02→21:52)
[2017-06-12] MEDS: FORMOTEROL FUMARATE 20 MCG/2 ML NEBU INHALATION SCH ×2 (07:01→20:53)
[2017-06-12] MEDS: IPRATROPIUM-ALBUTEROL 3 ML NEB INHALATION SCH ×4 (07:01→20:46)
[2017-06-12] MEDS: BUDESONIDE 0.5 MG/2 ML NEBU INHALATION SCH ×2 (07:01→20:53)
[2017-06-12 07:37] LABS: Glucose,Whole Blood 126 mg/dL (75-99)
[2017-06-12] MEDS: METOPROLOL TARTRATE 12.5 MG TAB PO SCH ×2 (07:37→21:52)
[2017-06-12] MEDS: PANTOPRAZOLE 40 MG TABLET PO SCH (07:37)
[2017-06-12] MEDS: cefTRIAXone IN SWFI 1,000 MG/10 ML SYRINGE IVP SCH (07:37)
[2017-06-12] MEDS: buPROPion SR 150 MG TABLET.ER PO SCH ×2 (07:37→21:49)
[2017-06-12] MEDS: HEPARIN SODIUM,PORCINE 5,000 UNIT/ML 1 ML VIAL SQ SCH ×2 (07:38→21:49)
[2017-06-12] MEDS: INSULIN ASPART 100 UNIT/ML 1 ML 10 ML VIAL SQ SCH ×4 (07:38→21:53)
[2017-06-12 09:51] LABS: ALT 24 U/L (9-52); AST 15 U/L (14-36); Albumin 3.5 g/dL (3.5-5.0); Alkaline Phosphatase 56 U/L (38-126); Anion Gap 10 mmol/L; Blood Urea Nitrogen 24 mg/dL (7-17); Calcium 9.5 mg/dL (8.4-10.2); Carbon Dioxide 31 mmol/L (22-30); Chloride 98 mmol/L (98-107); Glucose 132 mg/dL (74-99); Potassium 4.3 mmol/L (3.5-5.1); Sodium 139 mmol/L (137-145); Total Bilirubin 0.3 mg/dL (0.2-1.3); Total Protein 5.9 g/dL (6.3-8.2)
[2017-06-12 10:04] LABS: HCT 40.6 % (34.0-46.0); HGB 13.1 gm/dL (11.4-16.0); MCH 29.7 pg (25.0-35.0); MCHC 32.2 g/dL (31.0-37.0); MCV 92.2 fL (80.0-100.0); Mean Platelet Volume 8.4; Platelet Count 221 k/uL (150-450); RDW 13.8 % (11.5-15.5); WBC 19.4 k/uL (3.8-10.6)
[2017-06-12 11:58] LABS: Glucose,Whole Blood 258 mg/dL (75-99)
--- NOTE | 2017-06-12 13:39 | P.PN ---
Subjective Principal diagnosis: Continued shortness of breathcontinuing care. This is a continuing progress note on a 62-year-old white female essentially admitted for COPD exacerbation. The patient still feels that she is not improving back to her normal "baseline." No voiding difficulties. No significant nausea, vomiting or diarrhea is stated. Objective - Vital Signs Vital signs: Vital Signs Temp 97.1 F L 06/12/17 07:00 Pulse 84 06/12/17 11:15 Resp 18 06/12/17 11:15 BP 121/59 06/12/17 07:00 Pulse Ox 98 06/12/17 07:01 Intake & Output 06/11/17 06/12/17 06/12/17 18:59 06:59 18:59 Intake Total 600 Balance 600 Intake: Oral 600 Other: Voiding Method Toilet Toilet # Voids 4 200 - Constitutional General appearance: Present: thin - EENT Eyes: Absent: abnormal pupil - Neck Neck: Absent: lymphadenopathy - Respiratory Respiratory: bilateral: diminished - Cardiovascular Rhythm: regular Heart sounds: normal: S1, S2 Abnormal Heart Sounds: Absent: S3 Gallop - Gastrointestinal General gastrointestinal: Present: soft. Absent: tenderness - Integumentary Integumentary: Present: normal. Absent: rash - Neurologic Neurologic: Present: CNII-XII intact - Musculoskeletal Musculoskeletal: Present: gait normal - Labs CBC & Chem 7: 06/12/17 08:27 06/12/17 08:27 Labs: Abnormal Lab Results - Last 24 Hours (Table) 06/11/17 06/11/17 06/12/17 Range/Units 16:49 21:18 07:34 WBC (3.8-10.6) k/uL Carbon Dioxide (22-30) mmol/L BUN (7-17) mg/dL Glucose (74-99) mg/dL POC Glucose (mg/dL) 218 H 139 H 126 H (75-99) mg/dL Total Protein (6.3-8.2) g/dL 06/12/17 06/12/17 06/12/17 Range/Units 08:27 08:27 11:53 WBC 19.4 H (3.8-10.6) k/uL Carbon Dioxide 31 H (22-30) mmol/L BUN 24 H (7-17) mg/dL Glucose 132 H (74-99) mg/dL POC Glucose (mg/dL) 258 H (75-99) mg/dL Total Protein 5.9 L (6.3-8.2) g/dL Assessment and Plan (1) Acute exacerbation of chronic obstructive airways disease Current Visit: No Status: Acute Code(s): J44.1 - CHRONIC OBSTRUCTIVE PULMONARY DISEASE W (ACUTE) EXACERBATION SNOMED Code(s): 770265145 Plan: Continue current regimen of treatment. I had a long discussion regarding possible stem cell treatment versus bronchoscopy although this might be of minimal assistance to her in the long- term given her overall risk. Check CBC and CMP in a.m. See orders otherwise. Prognosis is still somewhat guarded. Time with Patient: Less than 30
[2017-06-12 17:06] LABS: Glucose,Whole Blood 82 mg/dL (75-99)
--- NOTE | 2017-06-12 20:28 | P.PN ---
Subjective Progress Note Date: 06/12/17 Principal diagnosis: Acute COPD exacerbation, acute on chronic hypoxic respiratory failure, and leukocytosis, purulent tracheobronchitis 06/12/2017, patient seen eval reexamined during the rounds she is breathing overall comfortably but is still continue to complain of shortness of breath which is however not much change from baseline she is doing well on lower dose of metoprolol tartrate hemodynamic status stable denies any chest pain still left cough which is dry and nonproductive, subcostal pain is there but significantly improve and less uncomfortable 06/11/2017, patient seen eval examined clinically overall remains unchanged but still of shortness of breath patient is running lately low blood pressure borderline tachycardic patient has been refusing marrow protocol, currently patient is an 25 mg by mouth 2 times a day Will change it to 12.5 twice a day Humidifier as well echocardiogram finding has been reviewed with the patient and his ejection fraction is 55-60% chest x-ray performed earlier today reviewed and compared with the prior x-ray overall remains unchanged, patient has been tolerating breathing treatment antibiotics and IV steroids fairly well , patient has been complaining of muscle ache and pain in the back will apply heating pads, appears to be related to muscle pain of coughing and muscle sprain 06/10/2017, patient seen and evaluated examined during the rounds her cough congestion shortness of breath slightly improved denies any pain anymore breathing is still difficult her oxygen saturation is stable noted that her d- dimer is normal, patient appears to be responding with the steroid antibiotics and breathing treatments will follow Ms. Anaya is a pleasant 62-year-old with end-stage lung disease secondary due to chronic hypoxic respiratory failure patient has a severe COPD which is oxygen dependent patient also has a history of lung nodule which was monitored and observed for an outpatient setting later on turned around to be resolving pneumonia. Patient recently discharged from the hospital after several days stay for cough shortness of breath was on IV steroids and antibiotics clinically improved significantly patient felt better for a 1-2 days however started feeling increasing shortness of breath chest tightness and cough with sputum production which was white to yellow in color with those problem patient came into emergency department she was found to have a chest x-ray consistent with COPD no acute infiltrate identified however significant leukocytosis was noted patient also had a component of prerenal azotemia with elevated BUNs and has been admitted into the hospital currently being gently rehydrated treated with antibiotics and the steroids and breathing treatments. A d-dimer was performed which was normal Objective - Vital Signs Vital signs: Vital Signs Temp 97.8 F 06/12/17 15:00 Pulse 93 06/12/17 16:42 Resp 18 06/12/17 15:00 BP 129/75 06/12/17 15:00 Pulse Ox 97 06/12/17 16:33 Intake & Output 06/12/17 06/12/17 06/13/17 06:59 18:59 06:59 Intake Total 600 1500 Balance 600 1500 Intake: Oral 600 1500 Other: Voiding Method Toilet # Voids 200 3 - Exam eneral: The patient is awake and alert, in no distress, Eye: Pupils are equal, round and reactive to light, extra-ocular movements are intact. No nystagmus. There is normal conjunctiva bilaterally. No signs of icterus. Ears, nose, mouth and throat: There are moist mucous membranes and no oral lesions. Neck: The neck is supple, there is no tenderness or JVD. Cardiovascular: There is a regular rate and rhythm. No murmur, rub or gallop is appreciated. Respiratory: Decreased breath sounds bilaterally. respirations are non-labored , breath sounds are equal. No stridor, rales, or rhonchi. Positive bilateral and expiratory fine wheezing are present, overall air movement and respiratory status appears to have improved compared to yesterday exam Musculoskeletal: Normal ROM, no tenderness. Strength 5/5. Sensation intact. Pulses equal bilaterally 2+. Neurological: A&O x 3. CN II-XII intact, There are no obvious motor or sensory deficits. Coordination appears grossly intact. Speech is normal. Skin: Skin is warm and dry and no rashes or lesions are noted. Psychiatric: Cooperative, appropriate mood & affect, normal judgment - Labs CBC & Chem 7: 06/12/17 08:27 06/12/17 08:27 Labs: Abnormal Lab Results - Last 24 Hours (Table) 06/11/17 06/12/17 06/12/17 Range/Units :18 07:34 08:27 WBC 19.4 H (3.8-10.6) k/uL Carbon Dioxide (22-30) mmol/L BUN (7-17) mg/dL Glucose (74-99) mg/dL POC Glucose (mg/dL) 139 H 126 H (75-99) mg/dL Total Protein (6.3-8.2) g/dL 06/12/17 06/12/17 Range/Units 08:27 11:53 WBC (3.8-10.6) k/uL Carbon Dioxide 31 H (22-30) mmol/L BUN 24 H (7-17) mg/dL Glucose 132 H (74-99) mg/dL POC Glucose (mg/dL) 258 H (75-99) mg/dL Total Protein 5.9 L (6.3-8.2) g/dL Assessment and Plan Assessment: Acute COPD exacerbation Hypotension and tachycardia overall stable now Acute on chronic hypoxic respiratory failure Severe leukocytosis continued to improve Purulent tracheobronchitis occult pneumonia cannot be excluded Leukocytosis Intravascular volume depletion and dehydration Mood disorder and depression with component of significant generalized anxiety disorder Plan: Reviewed follow-up chest x-ray, repeat labs follow-up on sputum for Gram stain and culture, continue antibiotics breathing treatments and steroids, and humidifier, maintain patient on DVT and peptic ulcer disease prophylaxis, would lower down the dose of metoprolol tartrate and set up parameters for low blood pressure and bradycardia care plan discussed with the patient at length will follow Time with Patient: Greater than 30
[2017-06-12 20:46] LABS: Glucose,Whole Blood 189 mg/dL (75-99)
[2017-06-13] MEDS: methylPREDNISolone SOD SUCCI 125 MG/2 ML VIAL IV SCH ×3 (01:09→12:08)
[2017-06-13] MEDS: ALPRAZolam 0.25 MG TAB PO PRN ×3 (06:27→20:17)
[2017-06-13] MEDS: BUDESONIDE 0.5 MG/2 ML NEBU INHALATION SCH ×2 (07:02→19:31)
[2017-06-13] MEDS: IPRATROPIUM-ALBUTEROL 3 ML NEB INHALATION SCH ×4 (07:02→19:31)
[2017-06-13] MEDS: FORMOTEROL FUMARATE 20 MCG/2 ML NEBU INHALATION SCH ×2 (07:03→19:31)
[2017-06-13 07:27] LABS: Glucose,Whole Blood 118 mg/dL (75-99)
--- NOTE | 2017-06-13 07:31 | P.PN ---
Subjective Principal diagnosis: Continued shortness of breathcontinuing care. This is a continue progress on a 62-year-old white female essentially admitted for exacerbation of COPD. She is continually struggling at this point and she has end-stage O2 dependency at this time. She has difficulty when ambulating to the bathroom with dyspnea. Significant tobacco abuse has been noted in her past. No significant nausea, vomiting or diarrhea stated. Objective - Vital Signs Vital signs: Vital Signs Temp 97.6 F 06/12/17 23:00 Pulse 88 06/13/17 07:25 Resp 18 06/12/17 23:00 BP 132/80 06/12/17 23:00 Pulse Ox 98 06/13/17 07:05 Intake & Output 06/12/17 06/13/17 06/13/17 18:59 06:59 18:59 Intake Total 1500 Balance 1500 Intake: Oral 1500 Other: Voiding Method Toilet # Voids 3 1 - Constitutional General appearance: Present: thin - EENT Eyes: Absent: abnormal pupil - Respiratory Respiratory: bilateral: diminished, prolonged expiration - Cardiovascular Rhythm: regular Heart sounds: normal: S1, S2 Abnormal Heart Sounds: Absent: S3 Gallop - Gastrointestinal General gastrointestinal: Present: soft. Absent: tenderness - Neurologic Neurologic: Absent: CNII-XII intact - Musculoskeletal Musculoskeletal: Present: gait normal - Labs CBC & Chem 7: 06/12/17 08:27 06/12/17 08:27 Labs: Abnormal Lab Results - Last 24 Hours (Table) 06/12/17 06/12/17 06/12/17 Range/Units 07:34 08:27 08:27 WBC 19.4 H (3.8-10.6) k/uL Carbon Dioxide 31 H (22-30) mmol/L BUN 24 H (7-17) mg/dL Glucose 132 H (74-99) mg/dL POC Glucose (mg/dL) 126 H (75-99) mg/dL Total Protein 5.9 L (6.3-8.2) g/dL 06/12/17 06/12/17 06/13/17 Range/Units 11:53 20:43 07:22 WBC (3.8-10.6) k/uL Carbon Dioxide (22-30) mmol/L BUN (7-17) mg/dL Glucose (74-99) mg/dL POC Glucose (mg/dL) 258 H 189 H 118 H (75-99) mg/dL Total Protein (6.3-8.2) g/dL Assessment and Plan (1) Acute exacerbation of chronic obstructive airways disease Current Visit: No Status: Acute Code(s): J44.1 - CHRONIC OBSTRUCTIVE PULMONARY DISEASE W (ACUTE) EXACERBATION SNOMED Code(s): 257305967 Plan: Continue current regimen of steroid treatment. Check CBC and CMP in a.m. Otherwise, patient had a long discussion about possible rehab to ECF due to her weakness. I will go ahead and consult discharge planning for possible placement. See orders otherwise. Time with Patient: Less than 30
[2017-06-13] MEDS: INSULIN ASPART 100 UNIT/ML 1 ML 10 ML VIAL SQ SCH ×4 (07:36→21:31)
[2017-06-13] MEDS: buPROPion SR 150 MG TABLET.ER PO SCH ×2 (07:39→20:15)
[2017-06-13] MEDS: HEPARIN SODIUM,PORCINE 5,000 UNIT/ML 1 ML VIAL SQ SCH ×2 (07:39→20:14)
[2017-06-13] MEDS: METOPROLOL TARTRATE 12.5 MG TAB PO SCH ×2 (07:40→20:17)
[2017-06-13] MEDS: PANTOPRAZOLE 40 MG TABLET PO SCH (07:40)
[2017-06-13] MEDS: cefTRIAXone IN SWFI 1,000 MG/10 ML SYRINGE IVP SCH (07:40)
[2017-06-13 12:18] LABS: Glucose,Whole Blood 113 mg/dL (75-99)
[2017-06-13] MEDS ORDERED: CALCIUM CARBONATE 500 MG CHEWABLE PO PRN (16:04)
--- NOTE | 2017-06-13 16:57 | P.PN ---
Subjective Progress Note Date: 06/13/17 Principal diagnosis: Acute COPD exacerbation, acute on chronic hypoxic respiratory failure, and leukocytosis, purulent tracheobronchitis 06/13/2017, patient seen and evaluated examined continued to be short of breath still of intermittent cough but severity has improved appetite is slightly better less short of breath at rest but get short of breath on activity and exertion, meds reviewed laboratory data reviewed recent radiographic studies reviewed as well, we'll start tapering down the steroids 06/12/2017, patient seen eval reexamined during the rounds she is breathing overall comfortably but is still continue to complain of shortness of breath which is however not much change from baseline she is doing well on lower dose of metoprolol tartrate hemodynamic status stable denies any chest pain still left cough which is dry and nonproductive, subcostal pain is there but significantly improve and less uncomfortable 06/11/2017, patient seen eval examined clinically overall remains unchanged but still of shortness of breath patient is running lately low blood pressure borderline tachycardic patient has been refusing marrow protocol, currently patient is an 25 mg by mouth 2 times a day Will change it to 12.5 twice a day Humidifier as well echocardiogram finding has been reviewed with the patient and his ejection fraction is 55-60% chest x-ray performed earlier today reviewed and compared with the prior x-ray overall remains unchanged, patient has been tolerating breathing treatment antibiotics and IV steroids fairly well , patient has been complaining of muscle ache and pain in the back will apply heating pads, appears to be related to muscle pain of coughing and muscle sprain 06/10/2017, patient seen and evaluated examined during the rounds her cough congestion shortness of breath slightly improved denies any pain anymore breathing is still difficult her oxygen saturation is stable noted that her d- dimer is normal, patient appears to be responding with the steroid antibiotics and breathing treatments will follow Ms. Anaya is a pleasant 62-year-old with end-stage lung disease secondary due to chronic hypoxic respiratory failure patient has a severe COPD which is oxygen dependent patient also has a history of lung nodule which was monitored and observed for an outpatient setting later on turned around to be resolving pneumonia. Patient recently discharged from the hospital after several days stay for cough shortness of breath was on IV steroids and antibiotics clinically improved significantly patient felt better for a 1-2 days however started feeling increasing shortness of breath chest tightness and cough with sputum production which was white to yellow in color with those problem patient came into emergency department she was found to have a chest x-ray consistent with COPD no acute infiltrate identified however significant leukocytosis was noted patient also had a component of prerenal azotemia with elevated BUNs and has been admitted into the hospital currently being gently rehydrated treated with antibiotics and the steroids and breathing treatments. A d-dimer was performed which was normal Objective - Vital Signs Vital signs: Vital Signs Temp 98.1 F 06/13/17 15:00 Pulse 90 06/13/17 15:40 Resp 16 06/13/17 15:00 BP 119/66 06/13/17 15:00 Pulse Ox 98 06/13/17 15:00 Intake & Output 06/12/17 06/13/17 06/13/17 18:59 06:59 18:59 Intake Total 1500 1200 Balance 1500 1200 Intake: Oral 1500 1200 Other: Voiding Method Toilet # Voids 3 1 3 - Exam eneral: The patient is awake and alert, in no distress, Eye: Pupils are equal, round and reactive to light, extra-ocular movements are intact. No nystagmus. There is normal conjunctiva bilaterally. No signs of icterus. Ears, nose, mouth and throat: There are moist mucous membranes and no oral lesions. Neck: The neck is supple, there is no tenderness or JVD. Cardiovascular: There is a regular rate and rhythm. No murmur, rub or gallop is appreciated. Respiratory: Decreased breath sounds bilaterally. respirations are non-labored , breath sounds are equal. No stridor, rales, or rhonchi. Positive bilateral and expiratory fine wheezing are present, overall air movement and respiratory status appears to have improved compared to yesterday exam Musculoskeletal: Normal ROM, no tenderness. Strength 5/5. Sensation intact. Pulses equal bilaterally 2+. Neurological: A&O x 3. CN II-XII intact, There are no obvious motor or sensory deficits. Coordination appears grossly intact. Speech is normal. Skin: Skin is warm and dry and no rashes or lesions are noted. Psychiatric: Cooperative, appropriate mood & affect, normal judgment - Labs CBC & Chem 7: 06/12/17 08:27 06/12/17 08:27 Labs: Abnormal Lab Results - Last 24 Hours (Table) 06/12/17 06/13/1706/13/18 Range/Units 20:43 07:22 12:08 POC Glucose (mg/dL) 189 H 118 H 113 H (75-99) mg/dL Assessment and Plan Assessment: Acute COPD exacerbation Hypotension and tachycardia overall stable now Acute on chronic hypoxic respiratory failure Severe leukocytosis continued to improve Purulent tracheobronchitis occult pneumonia cannot be excluded Leukocytosis Intravascular volume depletion and dehydration Mood disorder and depression with component of significant generalized anxiety disorder Plan: Taper his steroids, Reviewed follow-up chest x-ray, repeat labs follow-up on sputum for Gram stain and culture, continue antibiotics breathing treatments and steroids, and humidifier, maintain patient on DVT and peptic ulcer disease prophylaxis, would lower down the dose of metoprolol tartrate and set up parameters for low blood pressure and bradycardia care plan discussed with the patient at length will follow Time with Patient: Greater than 30
[2017-06-13 17:26] LABS: Glucose,Whole Blood 191 mg/dL (75-99)
[2017-06-13 20:33] LABS: Glucose,Whole Blood 126 mg/dL (75-99)
[2017-06-13] MEDS: methylPREDNISolone SOD SUCCI 40 MG/ML 1 ML VIAL IV SCH (22:16)
[2017-06-14] MEDS: ALPRAZolam 0.25 MG TAB PO PRN ×3 (05:48→21:21)
[2017-06-14 07:09] LABS: Glucose,Whole Blood 127 mg/dL (75-99)
[2017-06-14] MEDS: INSULIN ASPART 100 UNIT/ML 1 ML 10 ML VIAL SQ SCH ×4 (07:41→21:19)
[2017-06-14] MEDS: HEPARIN SODIUM,PORCINE 5,000 UNIT/ML 1 ML VIAL SQ SCH ×3 (07:42→21:35)
[2017-06-14] MEDS: METOPROLOL TARTRATE 12.5 MG TAB PO SCH (07:47)
[2017-06-14] MEDS: methylPREDNISolone SOD SUCCI 40 MG/ML 1 ML VIAL IV SCH ×2 (07:47→21:20)
[2017-06-14] MEDS: PANTOPRAZOLE 40 MG TABLET PO SCH (07:47)
[2017-06-14] MEDS: buPROPion SR 150 MG TABLET.ER PO SCH ×3 (07:47→21:18)
[2017-06-14] MEDS: cefTRIAXone IN SWFI 1,000 MG/10 ML SYRINGE IVP SCH (07:47)
[2017-06-14] MEDS: BUDESONIDE 0.5 MG/2 ML NEBU INHALATION SCH ×2 (07:52→20:34)
[2017-06-14] MEDS: FORMOTEROL FUMARATE 20 MCG/2 ML NEBU INHALATION SCH ×2 (07:52→20:34)
[2017-06-14] MEDS: IPRATROPIUM-ALBUTEROL 3 ML NEB INHALATION SCH ×4 (07:54→20:34)
[2017-06-14 08:00] LABS: ALT 25 U/L (9-52); AST 25 U/L (14-36); Albumin 3.2 g/dL (3.5-5.0); Alkaline Phosphatase 45 U/L (38-126); Anion Gap 10 mmol/L; Blood Urea Nitrogen 27 mg/dL (7-17); Calcium 9.2 mg/dL (8.4-10.2); Carbon Dioxide 27 mmol/L (22-30); Chloride 98 mmol/L (98-107); Glucose 115 mg/dL (74-99); Sodium 135 mmol/L (137-145); Total Bilirubin 0.7 mg/dL (0.2-1.3); Total Protein 5.7 g/dL (6.3-8.2)
[2017-06-14 08:06] LABS: Potassium 5.1 mmol/L (3.5-5.1)
--- NOTE | 2017-06-14 08:20 | P.PN ---
Subjective Principal diagnosis: Continued shortness of breathcontinuing care. This is a continue present on a 62-year-old white female essentially admitted for acute exacerbation COPD. 6 pulmonology has been slowly weaning the Solu- Medrol and she's actually feeling much better today. Yesterday we talked AT length about possible ECF placement, we will do home health instead. I do anticipate discharge in a.m. Objective - Vital Signs Vital signs: Vital Signs Temp 98.2 F 06/14/17 06:08 Pulse 92 06/14/17 08:03 Resp 18 06/14/17 06:08 BP 128/75 06/14/17 06:08 Pulse Ox 98 06/14/17 06:08 Intake & Output 06/13/17 06/14/17 06/14/17 18:59 06:59 18:59 Intake Total 1200 Balance 1200 Intake: Oral 1200 Other: # Voids 3 2 - Constitutional General appearance: Present: thin - EENT Eyes: Absent: abnormal pupil - Respiratory Respiratory: bilateral: CTA - Cardiovascular Rhythm: regular Heart sounds: normal: S1, S2 Abnormal Heart Sounds: Absent: S3 Gallop - Gastrointestinal General gastrointestinal: Present: soft. Absent: tenderness - Psychiatric Psychiatric: Present: A&O x's 3. Absent: appropriate affect - Labs CBC & Chem 7: 06/12/17 08:27 06/14/17 07:04 Labs: Abnormal Lab Results - Last 24 Hours (Table) 06/13/17 06/13/17 06/13/17 Range/Units 12:08 17:25 20:31 Sodium (137-145) mmol/L BUN (7-17) mg/dL Glucose (74-99) mg/dL POC Glucose (mg/dL) 113 H 191 H 126 H (75-99) mg/dL Total Protein (6.3-8.2) g/dL Albumin (3.5-5.0) g/dL 06/14/17 06/14/17 Range/Units 06:57 07:04 Sodium 135 L (137-145) mmol/L BUN 27 H (7-17) mg/dL Glucose 115 H (74-99) mg/dL POC Glucose (mg/dL) 127 H (75-99) mg/dL Total Protein 5.7 L (6.3-8.2) g/dL Albumin 3.2 L (3.5-5.0) g/dL Assessment and Plan (1) Acute exacerbation of chronic obstructive airways disease Current Visit: No Status: Acute Code(s): J44.1 - CHRONIC OBSTRUCTIVE PULMONARY DISEASE W (ACUTE) EXACERBATION SNOMED Code(s): 407948417 Plan: Keep on Solu Medrol 40 mg every 12 hours today. Switch over to prednisone after tomorrow's dose of son Medrol. Anticipate discharge in a.m. Dr. Sommers's group will be covering for the weekend Time with Patient: Less than 30
[2017-06-14] MEDS: METOPROLOL TARTRATE 25 MG TAB PO SCH ×2 (08:36→21:21)
[2017-06-14 08:37] LABS: HCT 40.5 % (34.0-46.0); HGB 13.7 gm/dL (11.4-16.0); MCH 31.5 pg (25.0-35.0); MCHC 33.9 g/dL (31.0-37.0); MCV 92.9 fL (80.0-100.0); Mean Platelet Volume 8.7; Platelet Count 139 k/uL (150-450); RBC 4.36 m/uL (3.80-5.40); RDW 13.7 % (11.5-15.5); WBC 18.8 k/uL (3.8-10.6)
[2017-06-14 12:17] LABS: Glucose,Whole Blood 99 mg/dL (75-99)
--- NOTE | 2017-06-14 12:47 | P.PN ---
Subjective Progress Note Date: 06/14/17 Principal diagnosis: Acute COPD exacerbation, acute on chronic hypoxic respiratory failure, and leukocytosis, purulent tracheobronchitis 06/14/2017, patient seen and evaluated examined clinically doing well patient IV steroids have been tapered down to twice a day was seems to be tolerating well no obvious distress present cuff congestion is stable overall respiratory status is stable on 2 times a day of steroid we'll continue to increase activity as tolerated follow clinical course closely remains stable possible discharge in next 24 hours 06/13/2017, patient seen and evaluated examined continued to be short of breath still of intermittent cough but severity has improved appetite is slightly better less short of breath at rest but get short of breath on activity and exertion, meds reviewed laboratory data reviewed recent radiographic studies reviewed as well, we'll start tapering down the steroids 06/12/2017, patient seen eval reexamined during the rounds she is breathing overall comfortably but is still continue to complain of shortness of breath which is however not much change from baseline she is doing well on lower dose of metoprolol tartrate hemodynamic status stable denies any chest pain still left cough which is dry and nonproductive, subcostal pain is there but significantly improve and less uncomfortable 06/11/2017, patient seen eval examined clinically overall remains unchanged but still of shortness of breath patient is running lately low blood pressure borderline tachycardic patient has been refusing marrow protocol, currently patient is an 25 mg by mouth 2 times a day Will change it to 12.5 twice a day Humidifier as well echocardiogram finding has been reviewed with the patient and his ejection fraction is 55-60% chest x-ray performed earlier today reviewed and compared with the prior x-ray overall remains unchanged, patient has been tolerating breathing treatment antibiotics and IV steroids fairly well , patient has been complaining of muscle ache and pain in the back will apply heating pads, appears to be related to muscle pain of coughing and muscle sprain 06/10/2017, patient seen and evaluated examined during the rounds her cough congestion shortness of breath slightly improved denies any pain anymore breathing is still difficult her oxygen saturation is stable noted that her d- dimer is normal, patient appears to be responding with the steroid antibiotics and breathing treatments will follow Ms. Anaya is a pleasant 62-year-old with end-stage lung disease secondary due to chronic hypoxic respiratory failure patient has a severe COPD which is oxygen dependent patient also has a history of lung nodule which was monitored and observed for an outpatient setting later on turned around to be resolving pneumonia. Patient recently discharged from the hospital after several days stay for cough shortness of breath was on IV steroids and antibiotics clinically improved significantly patient felt better for a 1-2 days however started feeling increasing shortness of breath chest tightness and cough with sputum production which was white to yellow in color with those problem patient came into emergency department she was found to have a chest x-ray consistent with COPD no acute infiltrate identified however significant leukocytosis was noted patient also had a component of prerenal azotemia with elevated BUNs and has been admitted into the hospital currently being gently rehydrated treated with antibiotics and the steroids and breathing treatments. A d-dimer was performed which was normal Objective - Vital Signs Vital signs: Vital Signs Temp 98.2 F 06/14/17 06:08 Pulse 94 06/14/17 11:37 Resp 18 06/14/17 08:00 BP 128/75 06/14/17 06:08 Pulse Ox 98 06/14/17 06:08 Intake & Output 06/13/17 06/14/17 06/14/17 18:59 06:59 18:59 Intake Total 1200 Balance 1200 Intake: Oral 1200 Other: Voiding Method Toilet # Voids 3 2 - Exam eneral: The patient is awake and alert, in no distress, Eye: Pupils are equal, round and reactive to light, extra-ocular movements are intact. No nystagmus. There is normal conjunctiva bilaterally. No signs of icterus. Ears, nose, mouth and throat: There are moist mucous membranes and no oral lesions. Neck: The neck is supple, there is no tenderness or JVD. Cardiovascular: There is a regular rate and rhythm. No murmur, rub or gallop is appreciated. Respiratory: Decreased breath sounds bilaterally. respirations are non-labored , breath sounds are equal. No stridor, rales, or rhonchi. Positive bilateral and expiratory fine wheezing are present, overall air movement and respiratory status appears to have improved compared to yesterday exam Musculoskeletal: Normal ROM, no tenderness. Strength 5/5. Sensation intact. Pulses equal bilaterally 2+. Neurological: A&O x 3. CN II-XII intact, There are no obvious motor or sensory deficits. Coordination appears grossly intact. Speech is normal. Skin: Skin is warm and dry and no rashes or lesions are noted. Psychiatric: Cooperative, appropriate mood & affect, normal judgment - Labs CBC & Chem 7: 06/14/17 07:04 06/14/17 07:04 Labs: Abnormal Lab Results - Last 24 Hours (Table) 06/13/17 06/13/17 06/14/17 Range/Units 17:25 20:31 06:57 WBC (3.8-10.6) k/uL Plt Count (150-450) k/uL Sodium (137-145) mmol/L BUN (7-17) mg/dL Glucose (74-99) mg/dL POC Glucose (mg/dL) 191 H 126 H 127 H (75-99) mg/dL Total Protein (6.3-8.2) g/dL Albumin (3.5-5.0) g/dL 06/14/17 06/14/17 Range/Units 07:04 07:04 WBC 18.8 H (3.8-10.6) k/uL Plt Count 139 L (150-450) k/uL Sodium 135 L (137-145) mmol/L BUN 27 H (7-17) mg/dL Glucose 115 H (74-99) mg/dL POC Glucose (mg/dL) (75-99) mg/dL Total Protein 5.7 L (6.3-8.2) g/dL Albumin 3.2 L (3.5-5.0) g/dL Assessment and Plan Assessment: Acute COPD exacerbation Hypotension and tachycardia overall stable now Acute on chronic hypoxic respiratory failure Severe leukocytosis continued to improve Purulent tracheobronchitis occult pneumonia cannot be excluded Leukocytosis Intravascular volume depletion and dehydration Mood disorder and depression with component of significant generalized anxiety disorder Plan: Taper his steroids, Reviewed follow-up chest x-ray, repeat labs follow-up on sputum for Gram stain and culture, continue antibiotics breathing treatments and steroids, and humidifier, maintain patient on DVT and peptic ulcer disease prophylaxis, would lower down the dose of metoprolol tartrate and set up parameters for low blood pressure and bradycardia care plan discussed with the patient at length will follow Time with Patient: Greater than 30
[2017-06-14 13:09] VITALS: BMI 21.9
[2017-06-14 17:02] LABS: Glucose,Whole Blood 189 mg/dL (75-99)
[2017-06-14 20:54] LABS: Glucose,Whole Blood 97 mg/dL (75-99)
[2017-06-15] MEDS: ALPRAZolam 0.25 MG TAB PO PRN ×2 (03:17→07:58)
[2017-06-15 07:17] LABS: Glucose,Whole Blood 131 mg/dL (75-99)
[2017-06-15 07:34] VITALS: BP 141/82; RESP 18; TEMP 97.6
[2017-06-15] MEDS: FORMOTEROL FUMARATE 20 MCG/2 ML NEBU INHALATION SCH (07:44)
[2017-06-15] MEDS: BUDESONIDE 0.5 MG/2 ML NEBU INHALATION SCH (07:44)
[2017-06-15] MEDS: IPRATROPIUM-ALBUTEROL 3 ML NEB INHALATION SCH ×2 (07:44→10:58)
[2017-06-15] MEDS: HEPARIN SODIUM,PORCINE 5,000 UNIT/ML 1 ML VIAL SQ SCH (07:47)
[2017-06-15] MEDS: PANTOPRAZOLE 40 MG TABLET PO SCH (07:49)
[2017-06-15] MEDS: METOPROLOL TARTRATE 25 MG TAB PO SCH (07:49)
[2017-06-15] MEDS: methylPREDNISolone SOD SUCCI 40 MG/ML 1 ML VIAL IV SCH (07:50)
[2017-06-15] MEDS: cefTRIAXone IN SWFI 1,000 MG/10 ML SYRINGE IVP SCH (07:50)
[2017-06-15] MEDS: buPROPion SR 150 MG TABLET.ER PO SCH (07:50)
[2017-06-15] MEDS: INSULIN ASPART 100 UNIT/ML 1 ML 10 ML VIAL SQ SCH ×2 (07:50→12:15)
[2017-06-15 08:06] VITALS: PULSE 88
--- NOTE | 2017-06-15 08:59 | P.PN ---
Subjective Progress Note Date: 06/15/17 Principal diagnosis: Acute COPD exacerbation, acute on chronic hypoxic respiratory failure, and leukocytosis, purulent tracheobronchitis 06/15/2017, patient seen and evaluated examined during the rounds clinically doing well awake and alert breathing comfortably no obvious distress is present still get short of breath on minimal activity and exertion she's on supplemental oxygen prescription has been left for Ceftin as well as Medrol Dosepak patient has been advised to continue using breathing treatments 3-4 times a day every day along with oxygen advised to follow-up in office next week , patient likely will be discharged later on today as per patient 06/14/2017, patient seen and evaluated examined clinically doing well patient IV steroids have been tapered down to twice a day was seems to be tolerating well no obvious distress present cuff congestion is stable overall respiratory status is stable on 2 times a day of steroid we'll continue to increase activity as tolerated follow clinical course closely remains stable possible discharge in next 24 hours 06/13/2017, patient seen and evaluated examined continued to be short of breath still of intermittent cough but severity has improved appetite is slightly better less short of breath at rest but get short of breath on activity and exertion, meds reviewed laboratory data reviewed recent radiographic studies reviewed as well, we'll start tapering down the steroids 06/12/2017, patient seen evyessi reexamined during the rounds she is breathing overall comfortably but is still continue to complain of shortness of breath which is however not much change from baseline she is doing well on lower dose of metoprolol tartrate hemodynamic status stable denies any chest pain still left cough which is dry and nonproductive, subcostal pain is there but significantly improve and less uncomfortable 06/11/2017, patient seen evyessi examined clinically overall remains unchanged but still of shortness of breath patient is running lately low blood pressure borderline tachycardic patient has been refusing marrow protocol, currently patient is an 25 mg by mouth 2 times a day Will change it to 12.5 twice a day Humidifier as well echocardiogram finding has been reviewed with the patient and his ejection fraction is 55-60% chest x-ray performed earlier today reviewed and compared with the prior x-ray overall remains unchanged, patient has been tolerating breathing treatment antibiotics and IV steroids fairly well , patient has been complaining of muscle ache and pain in the back will apply heating pads, appears to be related to muscle pain of coughing and muscle sprain 06/10/2017, patient seen and evaluated examined during the rounds her cough congestion shortness of breath slightly improved denies any pain anymore breathing is still difficult her oxygen saturation is stable noted that her d- dimer is normal, patient appears to be responding with the steroid antibiotics and breathing treatments will follow Ms. Anaya is a pleasant 62-year-old with end-stage lung disease secondary due to chronic hypoxic respiratory failure patient has a severe COPD which is oxygen dependent patient also has a history of lung nodule which was monitored and observed for an outpatient setting later on turned around to be resolving pneumonia. Patient recently discharged from the hospital after several days stay for cough shortness of breath was on IV steroids and antibiotics clinically improved significantly patient felt better for a 1-2 days however started feeling increasing shortness of breath chest tightness and cough with sputum production which was white to yellow in color with those problem patient came into emergency department she was found to have a chest x-ray consistent with COPD no acute infiltrate identified however significant leukocytosis was noted patient also had a component of prerenal azotemia with elevated BUNs and has been admitted into the hospital currently being gently rehydrated treated with antibiotics and the steroids and breathing treatments. A d-dimer was performed which was normal Objective - Vital Signs Vital signs: Vital Signs Temp 97.6 F 06/15/17 07:00 Pulse 88 06/15/17 08:05 Resp 18 06/15/17 07:00 BP 141/82 06/15/17 07:00 Pulse Ox 99 06/15/17 07:00 Intake & Output 06/14/17 06/15/17 06/15/17 18:59 06:59 18:59 Intake Total 440 800 240 Balance 440 800 240 Weight 54.431 kg 54.431 kg Intake: Oral 440 800 240 Other: Voiding Method Toilet Toilet Toilet # Voids 2 - Exam eneral: The patient is awake and alert, in no distress, Eye: Pupils are equal, round and reactive to light, extra-ocular movements are intact. No nystagmus. There is normal conjunctiva bilaterally. No signs of icterus. Ears, nose, mouth and throat: There are moist mucous membranes and no oral lesions. Neck: The neck is supple, there is no tenderness or JVD. Cardiovascular: There is a regular rate and rhythm. No murmur, rub or gallop is appreciated. Respiratory: Decreased breath sounds bilaterally. respirations are non-labored , breath sounds are equal. No stridor, rales, or rhonchi. Positive bilateral and expiratory fine wheezing are present, overall air movement and respiratory status appears to have improved compared to yesterday exam Musculoskeletal: Normal ROM, no tenderness. Strength 5/5. Sensation intact. Pulses equal bilaterally 2+. Neurological: A&O x 3. CN II-XII intact, There are no obvious motor or sensory deficits. Coordination appears grossly intact. Speech is normal. Skin: Skin is warm and dry and no rashes or lesions are noted. Psychiatric: Cooperative, appropriate mood & affect, normal judgment - Labs CBC & Chem 7: 06/14/17 07:04 06/14/17 07:04 Labs: Abnormal Lab Results - Last 24 Hours (Table) 06/14/17 06/15/17 Range/Units 16:57 06:57 POC Glucose (mg/dL) 189 H 131 H (75-99) mg/dL Assessment and Plan Assessment: Acute COPD exacerbation Hypotension and tachycardia overall stable now Acute on chronic hypoxic respiratory failure Severe leukocytosis continued to improve Purulent tracheobronchitis occult pneumonia cannot be excluded Leukocytosis Intravascular volume depletion and dehydration Mood disorder and depression with component of significant generalized anxiety disorder Plan: Taper his steroids, Reviewed follow-up chest x-ray, repeat labs follow-up on sputum for Gram stain and culture, continue antibiotics breathing treatments and steroids, and humidifier, maintain patient on DVT and peptic ulcer disease prophylaxis, would lower down the dose of metoprolol tartrate and set up parameters for low blood pressure and bradycardia care plan discussed with the patient at length will follow, prescription left for Medrol Dosepak and antibiotics will follow outpatient setting Time with Patient: Greater than 30
[2017-06-15 11:58] LABS: Glucose,Whole Blood 110 mg/dL (75-99)
== END 2017-06-15 15:00 | disposition home health service (06) | DRG 190 ==
LOC: EC 14:10 → 4MS4W 16:01
PROVIDERS: ADMIT Family Medicine; ATTEND Family Medicine
DX: J44.0 Chronic obstructive pulmonary disease with (acute) lower respiratory infection (principal); J96.21 Acute and chronic respiratory failure with hypoxia; J18.9 Pneumonia, unspecified organism; Z99.81 Dependence on supplemental oxygen; I95.9 Hypotension, unspecified; E87.1 Hypo-osmolality and hyponatremia; J20.9 Acute bronchitis, unspecified; J44.1 Chronic obstructive pulmonary disease with (acute) exacerbation; M19.91 Primary osteoarthritis, unspecified site; R91.1 Solitary pulmonary nodule; E86.0 Dehydration; M54.9 Dorsalgia, unspecified; F41.1 Generalized anxiety disorder; F32.9 Major depressive disorder, single episode, unspecified; Z79.51 Long term (current) use of inhaled steroids; Z79.52 Long term (current) use of systemic steroids; Z79.899 Other long term (current) drug therapy; Z90.49 Acquired absence of other specified parts of digestive tract; Z87.01 Personal history of pneumonia (recurrent); Z87.891 Personal history of nicotine dependence; Z87.440 Personal history of urinary (tract) infections; Z88.1 Allergy status to other antibiotic agents; Z88.0 Allergy status to penicillin; Z88.8 Allergy status to other drugs, medicaments and biological substances
CPT/HCPCS: 36415; 71046; 80053; 81001; 82550; 82553; 83880; 84145; 84484; 85025; 85027; 85379; 85610; 85730; 87502; 93005; 93306; 94640; 94760; 96374; 99285

== ENCOUNTER 2017-06-20 15:41 | Inpatient (IN) | payer BC ==
[2017-06-20] MEDS ORDERED: IBUPROFEN 400 MG TAB PO PRN (18:03)
[2017-06-20] MEDS: methylPREDNISolone SOD SUCCI 125 MG/2 ML VIAL IV SCH ×2 (18:10→23:37)
[2017-06-20 18:56] LABS: Basophils % (A) 0 %; Eosinophils # (A) 0.1 k/uL (0-0.7); Eosinophils % (A) 1 %; HCT 42.1 % (34.0-46.0); HGB 13.8 gm/dL (11.4-16.0); Lymphocytes # (A) 1.3 k/uL (1.0-4.8); Lymphocytes % (A) 10 %; MCH 30.3 pg (25.0-35.0); MCHC 32.7 g/dL (31.0-37.0); MCV 92.6 fL (80.0-100.0); Mean Platelet Volume 6.8; Monocytes # (A) 0.5 k/uL (0-1.0); Monocytes % (A) 4 %; Neutrophils # (A) 11.3 k/uL (1.3-7.7); Neutrophils % (A) 85 %; Platelet Count 242 k/uL (150-450); RBC 4.55 m/uL (3.80-5.40); RDW 13.9 % (11.5-15.5); WBC 13.4 k/uL (3.8-10.6)
[2017-06-20 19:04] LABS: ALT 43 U/L (9-52); AST 17 U/L (14-36); Albumin 3.4 g/dL (3.5-5.0); Alkaline Phosphatase 63 U/L (38-126); Anion Gap 11 mmol/L; Blood Urea Nitrogen 17 mg/dL (7-17); Calcium 9.3 mg/dL (8.4-10.2); Carbon Dioxide 32 mmol/L (22-30); Chloride 93 mmol/L (98-107); Glucose 158 mg/dL (74-99); Potassium 3.7 mmol/L (3.5-5.1); Sodium 136 mmol/L (137-145); Total Bilirubin 0.3 mg/dL (0.2-1.3); Total Protein 5.8 g/dL (6.3-8.2)
--- NOTE | 2017-06-20 19:10 | XR ---
EXAMINATION TYPE: XR chest 2V DATE OF EXAM: 06/20/2017 COMPARISON: 06/11/2017 HISTORY: Short of breath TECHNIQUE: Frontal and lateral views of the chest are obtained. FINDINGS: There is pulmonary hyperinflation with flattening of the diaphragm. There is some pleural thickening at the right lung apex. Heart size is normal. There is no heart failure. Thoracic aorta is atheromatous. There are emphysematous changes in the upper lobes. IMPRESSION: COPD and pulmonary fibrosis. No change compared to old exam. Normal heart.
[2017-06-20] MEDS: IPRATROPIUM-ALBUTEROL 3 ML NEB INHALATION SCH (19:17)
[2017-06-20] MEDS: FORMOTEROL FUMARATE 20 MCG/2 ML NEBU INHALATION SCH (19:18)
[2017-06-20] MEDS: BUDESONIDE 0.5 MG/2 ML NEBU INHALATION SCH (19:18)
[2017-06-20] MEDS: SODIUM CHLORIDE 0.9% 1,000 ML IV SCH (19:46)
[2017-06-20] MEDS: ALPRAZolam 0.25 MG TAB PO SCH (21:10)
[2017-06-20] MEDS: METOPROLOL TARTRATE 12.5 MG TAB PO SCH (21:10)
[2017-06-20 21:32] LABS: Glucose,Whole Blood 149 mg/dL (75-99)
[2017-06-21] MEDS: ALBUTEROL NEBULIZED 2.5 MG/3 ML INHALATION PRN (00:17)
[2017-06-21] MEDS: methylPREDNISolone SOD SUCCI 125 MG/2 ML VIAL IV SCH ×4 (05:53→23:11)
[2017-06-21] MEDS: IPRATROPIUM-ALBUTEROL 3 ML NEB INHALATION SCH ×4 (07:16→19:22)
[2017-06-21] MEDS: FORMOTEROL FUMARATE 20 MCG/2 ML NEBU INHALATION SCH ×2 (07:16→19:22)
[2017-06-21] MEDS: BUDESONIDE 0.5 MG/2 ML NEBU INHALATION SCH ×2 (07:16→19:22)
[2017-06-21 07:29] LABS: Glucose,Whole Blood 144 mg/dL (75-99)
[2017-06-21] MEDS ORDERED: TIOTROPIUM BROMIDE INHALATION SCH (08:00)
[2017-06-21] MEDS: METOPROLOL TARTRATE 12.5 MG TAB PO SCH ×2 (08:12→20:53)
[2017-06-21] MEDS: NICOTINE 14MG/24HR PATCH TRANSDERM SCH (08:13)
[2017-06-21] MEDS: PANTOPRAZOLE 40 MG TABLET PO SCH (08:13)
[2017-06-21] MEDS: ALPRAZolam 0.25 MG TAB PO SCH ×3 (08:13→18:42)
[2017-06-21 10:47] LABS: Basophils % (A) 0 %; Eosinophils % (A) 0 %; HCT 43.8 % (34.0-46.0); HGB 13.9 gm/dL (11.4-16.0); Lymphocytes # (A) 0.3 k/uL (1.0-4.8); Lymphocytes % (A) 4 %; MCH 29.7 pg (25.0-35.0); MCHC 31.7 g/dL (31.0-37.0); MCV 93.6 fL (80.0-100.0); Mean Platelet Volume 7.9; Monocytes # (A) 0.2 k/uL (0-1.0); Monocytes % (A) 2 %; Neutrophils # (A) 7.7 k/uL (1.3-7.7); Neutrophils % (A) 93 %; Platelet Count 160 k/uL (150-450); RBC 4.68 m/uL (3.80-5.40); RDW 13.7 % (11.5-15.5); WBC 8.2 k/uL (3.8-10.6)
[2017-06-21 11:28] LABS: Glucose,Whole Blood 160 mg/dL (75-99)
--- NOTE | 2017-06-21 15:36 | P.HPIM ---
History of Present Illness H&P Date: 06/21/17 Chief Complaint: Shortness of breath This is a history and physical on a 62-year-old white female who was recently discharged for exacerbation of COPD. The patient saw me yesterday in the office with significant dyspnea. She is at home health but I suspect she is having chronic exacerbations. She claims that she is not smoking cigarettes at this time. No significant fever or chills stated. Significant dyspnea on exertion as otherwise noted. Because of her somewhat end-stage elements, she is admitted from the office with pulmonology consultation. She states no significant nausea, vomiting or diarrhea. Review of Systems Constitutional: Reports fatigue, Denies fever Eyes: denies blurred vision, denies pain Cardiovascular: Reports as per HPI Respiratory: Reports as per HPI, Reports home oxygen Gastrointestinal: Denies abdominal pain, Denies diarrhea, Denies nausea, Denies vomiting Genitourinary: Denies dysuria, Denies hematuria Musculoskeletal: Denies myalgias Integumentary: Denies pruritus, Denies rash Neurological: Denies numbness, Denies weakness Past Medical History Past Medical History: COPD, Osteoarthritis (OA), Pneumonia Additional Past Medical History / Comment(s): HOME 02 2-3 LITERS N/C, UTI-ECOLI , EDENTULOUS, previous spine fracture History of Any Multi-Drug Resistant Organisms: None Reported Past Surgical History: Appendectomy Additional Past Surgical History / Comment(s): LASER EYE SX Past Anesthesia/Blood Transfusion Reactions: No Reported Reaction Past Psychological History: Anxiety Additional Psychological History / Comment(s): PT LIVES WITH HER DAUGHER IN A SINGLE LEVEL HOME THAT HAS 4 PORCH STEPS AND A BASEMENT W/12 STEPS. NO OUTSIDE SERVICES RECIEVED. HAS HOME O2 AND A NEBULIZER. PT IS INDEPENDANT WHEN UP. 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 Smoking Status: Former smoker Past Alcohol Use History: None Reported Additional Past Alcohol Use History / Comment(s): STARTED SMOKING AROUND 1976- 2 PPD, QUIT . Past Drug Use History: None Reported - Past Family History Mother Family Medical History: Cancer Additional Family Medical History / Comment(s): breast/BLADDER CA Father Family Medical History: Cancer Additional Family Medical History / Comment(s): lung ca, BRAIN TUMORS Medications and Allergies Home Medications Medication Instructions Recorded Confirmed Type RX: Tiotropium [place] [Spiriva 2 cap INHALATION RT-DAILY 12/11/14 06/20/17 History Respimat] RX: Budesonide [Pulmicort] 0.5 mg INHALATION RT-BID nebu 12/17/14 06/20/17 Rx RX: Arformoterol Tartrate [Brovana] 15 mcg INHALATION RT-BID 04/14/15 06/20/17 History RX: ALPRAZolam [Xanax] 0.25 mg PO QID 09/03/16 06/20/17 History RX: Albuterol Inhaler [Ventolin 2 puff INHALATION RT-QID PRN 09/03/16 06/20/17 History Hfa Inhaler] RX: Metoprolol Tartrate 12.5 mg PO BID 09/03/16 06/20/17 History RX: predniSONE 5 mg PO DAILY 06/09/17 06/20/17 History RX: Pantoprazole [Protonix] 40 mg PO LIZZETH-BONNIE #30 tablet. 06/15/17 06/20/17 Rx methylPREDNISolone Dose Pack 4 mg PO DIRECTED #21 package 06/15/17 06/20/17 Rx [Medrol Dose Pack] Ipratropium-Albuterol Nebulize 3 ml INHALATION RT-QID 06/20/17 06/20/17 History [Duoneb 0.5 mg-3 mg/3 ml Soln] Allergies Allergy/AdvReac Type Severity Reaction Status Date / Time levofloxacin [From Levaquin] Allergy Rash/Hives Verified 06/20/17 17:13 montelukast [From Singulair] Allergy Itching Verified 06/20/17 17:13 Penicillins Allergy Rash/Hives Verified 06/20/17 17:13 Physical Exam Vitals: Vital Signs Temp Pulse Pulse Resp BP Pulse Ox 06/21/17 11:24 94 06/21/17 11:15 92 06/21/17 08:00 18 06/21/17 07:39 93 06/21/17 07:29 93 06/21/17 07:18 93 06/21/17 06:03 97.6 F 93 18 109/67 99 06/21/17 00:30 80 06/21/17 00:17 80 06/20/17 23:00 97.7 F 88 18 100/54 98 06/20/17 19:20 98 06/20/17 18:17 92 L 06/20/17 17:39 20 Intake and Output 06/21/17 06/21/17 06/21/17 06:59 14:59 22:59 Intake Total 700 Balance 700 Intake: Oral 700 Other: Voiding Method Toilet # Voids 1 2 - Constitutional General appearance: thin - EENT Eyes: no abnormal pupil - Neck Neck: lymphadenopathy - Respiratory Respiratory: bilateral: diminished - Cardiovascular Rhythm: regular Heart sounds: normal: S1 Abnormal Heart Sounds: no S3 Gallop - Gastrointestinal General gastrointestinal: soft, no tenderness - Neurologic Neurologic: CNII-XII intact - Psychiatric Psychiatric: A&O x's 3, no appropriate affect Results CBC & Chem 7: 06/21/17 09:59 06/20/17 18:45 Labs: Abnormal Lab Results - Last 24 Hours (Table) 06/20/17 06/20/17 06/20/17 Range/Units 18:45 18:45 21:23 WBC 13.4 H (3.8-10.6) k/uL Neutrophils # 11.3 H (1.3-7.7) k/uL Lymphocytes # (1.0-4.8) k/uL Sodium 136 L (137-145) mmol/L Chloride 93 L (98-107) mmol/L Carbon Dioxide 32 H (22-30) mmol/L Glucose 158 H (74-99) mg/dL POC Glucose (mg/dL) 149 H (75-99) mg/dL Total Protein 5.8 L (6.3-8.2) g/dL Albumin 3.4 L (3.5-5.0) g/dL 06/21/17 06/21/17 06/21/17 Range/Units 07:27 09:59 11:22 WBC (3.8-10.6) k/uL Neutrophils # (1.3-7.7) k/uL Lymphocytes # 0.3 L (1.0-4.8) k/uL Sodium (137-145) mmol/L Chloride (98-107) mmol/L Carbon Dioxide (22-30) mmol/L Glucose (74-99) mg/dL POC Glucose (mg/dL) 144 H 160 H (75-99) mg/dL Total Protein (6.3-8.2) g/dL Albumin (3.5-5.0) g/dL Thrombosis Risk Factor Assmnt - Choose All That Apply Each Risk Factor Represents 2 Points: Age 61-74 years Thrombosis Risk Factor Assessment Total Risk Factor Score: 2 Thrombosis Risk Factor Assessment Level: Low Risk Assessment and Plan (1) Acute exacerbation of chronic obstructive airways disease Current Visit: No Status: Acute Code(s): J44.1 - CHRONIC OBSTRUCTIVE PULMONARY DISEASE W (ACUTE) EXACERBATION SNOMED Code(s): 119305155 (2) COPD exacerbation Current Visit: No Status: Acute Code(s): J44.1 - CHRONIC OBSTRUCTIVE PULMONARY DISEASE W (ACUTE) EXACERBATION SNOMED Code(s): 770081577998108 Plan: Go ahead and start Solu-Medrol 60 mg every 6. Check CBC and see me in the a.m. with chest x-ray on admission. The patient will otherwise have pulmonology consultation again. She is a full code otherwise. Dr. Sommers's group will be covering for the weekend. Prognosis is somewhat guarded secondary to her multiple exacerbations. Time with Patient: Greater than 30
[2017-06-21 17:21] LABS: Glucose,Whole Blood 126 mg/dL (75-99)
[2017-06-21] MEDS: SODIUM CHLORIDE 0.9% 1,000 ML IV SCH (18:09)
[2017-06-21 20:44] LABS: Glucose,Whole Blood 212 mg/dL (75-99)
[2017-06-21] MEDS ORDERED: RX INFO: IV CONTRAST WAS GIVEN 1 EACH MISC MISCELLANE PRN (21:18)
--- NOTE | 2017-06-21 21:19 | P.CNPUL ---
History of Present Illness Consult date: 06/21/17 Reason for consult: dyspnea, cough, chest pain Chief complaint: Persistent severe shortness of breath with some left-sided pleuritic chest History of present illness: Ms. 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 she is the steroid dependent as well as oxygen dependent for her advance emphysema and COPD patient recently has been hospitalized for pneumonia followed by acute COPD exacerbation was discharged in stable condition was doing relatively well for a day developed increasing shortness of breath with some left-sided supple coarse store chest discomfort and pain presented into the office of primary care provider has been advised to be admitted into the hospital and I was asked to evaluate this patient further patient has chronic ongoing shortness of breath and mostly dry nonproductive cough she frequently have acute severe paroxysmal episode of shortness of breath which is difficult to control and goes into coughing spells, patient does have a history of right upper lobe pulmonary nodule and severe degree of emphysema with the last CAT scan was performed somewhere around June 2016 she has been evaluated for nodule as well as abnormal CAT scan in the past at [facility] as a second opinion as well and was recommended to monitor and observe no intervention was advised Review of Systems All systems: negative Past Medical History Past Medical History: COPD, Osteoarthritis (OA), Pneumonia Additional Past Medical History / Comment(s): HOME 02 2-3 LITERS [place], UTI-ECOLI , EDENTULOUS, previous spine fracture History of Any Multi-Drug Resistant Organisms: None Reported Past Surgical History: Appendectomy Additional Past Surgical History / Comment(s): LASER EYE SX Past Anesthesia/Blood Transfusion Reactions: No Reported Reaction Past Psychological History: Anxiety Additional Psychological History / Comment(s): PT LIVES WITH HER BERNAUGHER IN A SINGLE LEVEL HOME THAT HAS 4 PORCH STEPS AND A BASEMENT W/12 STEPS. NO OUTSIDE SERVICES RECIEVED. HAS HOME O2 AND A NEBULIZER. PT IS INDEPENDANT WHEN UP. 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 Smoking Status: Former smoker Past Alcohol Use History: None Reported Additional Past Alcohol Use History / Comment(s): STARTED SMOKING AROUND 1976- PPD, QUIT . Past Drug Use History: None Reported - Past Family History Mother Family Medical History: Cancer Additional Family Medical History / Comment(s): breast/BLADDER CA Father Family Medical History: Cancer Additional Family Medical History / Comment(s): lung ca, BRAIN TUMORS Medications and Allergies Home Medications Medication Instructions Recorded Confirmed Type Tiotropium [place] [Spiriva 2 cap INHALATION RT-DAILY 12/11/14 06/20/17 History Respimat] Budesonide [Pulmicort] 0.5 mg INHALATION RT-BID nebu 12/17/14 06/20/17 Rx Arformoterol Tartrate [Brovana] 15 mcg INHALATION RT-BID 04/14/15 06/20/17 History ALPRAZolam [Xanax] 0.25 mg PO QID 09/03/16 06/20/17 History Albuterol Inhaler [Ventolin Hfa 2 puff INHALATION RT-QID PRN 09/03/16 06/20/17 History Inhaler] Metoprolol Tartrate 12.5 mg PO BID 09/03/16 06/20/17 History predniSONE 5 mg PO DAILY 06/09/17 06/20/17 History Pantoprazole [Protonix] 40 mg PO LIZZETH-BONNIE #30 tablet. 06/15/17 06/20/17 Rx methylPREDNISolone Dose Pack 4 mg PO DIRECTED #21 package 06/15/17 06/20/17 Rx [Medrol Dose Pack] Ipratropium-Albuterol Nebulize 3 ml INHALATION RT-QID 06/20/17 06/20/17 History [Duoneb 0.5 mg-3 mg/3 ml Soln] Allergies Allergy/AdvReac Type Severity Reaction Status Date / Time levofloxacin [From Levaquin] Allergy Rash/Hives Verified 06/20/17 17:13 montelukast [From Singulair] Allergy Itching Verified 06/20/17 17:13 Penicillins Allergy Rash/Hives Verified 06/20/17 17:13 Physical Exam Vitals: Vital Signs Temp Pulse Pulse Resp BP BP Pulse Ox 06/21/17 20:51 104 H 156/69 06/21/17 19:47 114 H 20 06/21/17 19:45 100 06/21/17 19:34 102 H 06/21/17 19:22 102 H 06/21/17 16:03 95 26 H 06/21/17 15:44 100 06/21/17 15:32 98 98 06/21/17 15:00 97.5 F L 95 26 H 138/72 96 06/21/17 11:24 94 06/21/17 11:15 92 06/21/17 08:00 18 06/21/17 07:39 93 06/21/17 07:29 93 06/21/17 07:18 93 06/21/17 06:03 97.6 F 93 18 109/67 99 06/21/17 00:30 80 06/21/17 00:17 80 06/20/17 23:00 97.7 F 88 18 100/54 98 Intake and Output 06/21/17 06/21/17 06/21/17 06:59 14:59 22:59 Intake Total 700 700 Balance 700 700 Intake: Oral 700 700 Other: Voiding Method Toilet Toilet # Voids 1 2 2 # Bowel Movements 1 Weight 51.1 kg - Constitutional General appearance: thin short of breath on activity like making full sentence - EENT Eyes: no abnormal pupil - Neck Neck: lymphadenopathy - Respiratory Respiratory: bilateral: diminished bilaterally with some subcostal tenderness present of the left anterior lateral aspect - Cardiovascular Rhythm: regular Heart sounds: normal: S1 Abnormal Heart Sounds: no S3 Gallop - Gastrointestinal General gastrointestinal: soft, no tenderness - Neurologic Neurologic: CNII-XII intact normal neuro exam - Psychiatric Psychiatric: A&O x's 3, no appropriate affect Results - Laboratory Findings CBC and BMP: 06/21/17 09:59 06/20/17 18:45 Abnormal lab findings: Abnormal Labs 06/20/17 06/20/17 06/20/17 18:45 18:45 21:23 WBC 13.4 H Neutrophils # 11.3 H Lymphocytes # Sodium 136 L Chloride 93 L Carbon Dioxide 32 H Glucose 158 H POC Glucose (mg/dL) 149 H Total Protein 5.8 L Albumin 3.4 L 06/21/17 06/21/17 06/21/17 07:27 09:59 11:22 WBC Neutrophils # Lymphocytes # 0.3 L Sodium Chloride Carbon Dioxide Glucose POC Glucose (mg/dL) 144 H 160 H Total Protein Albumin 06/21/17 06/21/17 17:18 20:42 WBC Neutrophils # Lymphocytes # Sodium Chloride Carbon Dioxide Glucose POC Glucose (mg/dL) 126 H 212 H Total Protein Albumin - Diagnostic Findings Chest x-ray: report reviewed, image reviewed (Finding consistent with severe COPD and severe emphysema appearing ILD) Assessment and Plan Assessment: Acute exacerbation of severe COPD Acute on chronic hypoxic respirator failure Left-sided subcostal chest pain likely related to musculoskeletal pain due to coughing and breathing Chronic and generalized anxiety disorder Plan: Continue gentle hydration Continue deep breathing exercises and incentive spirometry Continue IV steroids and bronchodilator in the form of nebulizer Metoprolol for history of tachycardia and hypertension to be continued lower dose Patient has been consult about smoking cessation We'll set patient up for CT angiogram Arrange patient for her sputum studies as well Time with Patient: Greater than 30
--- NOTE | 2017-06-21 22:03 | CT ---
EXAMINATION TYPE: CT angio chest DATE OF EXAM: 06/21/2017 9:54 PM COMPARISON: 04/14/2015 HISTORY: SOB, R/O PE CT DLP: 124.4 mGycm Automated exposure control for dose reduction was used. CONTRAST: CTA scan of the thorax is performed with IV Contrast, patient injected with 50 mL of Isovue 370, pulm onary embolism protocol. There are 3-D post processed images.. FINDINGS: There is diffuse pulmonary emphysema. There is reticular density in the upper lobes consistent with s carring that is more in the right upper lobe. There is some infiltrate in the right paratracheal region that measures up to 2 cm. This is probably due to inflammatory disease. Thoracic aorta is atheromatous. The ascending aorta measures 3.3 cm. There is no sign of dissection. Heart size is normal. There is no pericardial effusion. There is no pleural effusion. There is normal contrast opacification of the pulmonary arteries. I see no filling defect. There are no hilar masses. There is a few mediastinal lymph nodes that measure less than 1 cm. There is 20% ant erior wedging of T11 vertebra. IMPRESSION: EMPHYSEMA. RIGHT UPPER LOBE SCARRING AND INFILTRATE. THIS APPEARS NEW COMPARED TO OLD EXAM OF 04/14/19 16. THERE IS CLEARING OF RIGHT LOWER LOBE PULMONARY INFILTRATE COMPARED TO OLD EXAM. NO EVIDENCE OF PULMONARY EMBOLISM. RIGHT UPPER LOBE INFILTRATE IS NEW COMPARED TO 07/11/2016 AND CONSISTENT WITH INFLAMMATORY DISEASE. OLD T11 COMPRESSION FRACTURE. CHRONIC FIBROTIC CHANGES IN THE MID AND LOWER LUNG BANERJEE.
[2017-06-22] MEDS: ALPRAZolam 0.25 MG TAB PO SCH ×5 (00:49→21:42)
[2017-06-22] MEDS: methylPREDNISolone SOD SUCCI 125 MG/2 ML VIAL IV SCH ×4 (05:38→23:40)
[2017-06-22] MEDS: ALBUTEROL NEBULIZED 2.5 MG/3 ML INHALATION PRN (05:40)
[2017-06-22] MEDS: BUDESONIDE 0.5 MG/2 ML NEBU INHALATION SCH (07:19)
[2017-06-22] MEDS: IPRATROPIUM-ALBUTEROL 3 ML NEB INHALATION SCH ×4 (07:19→19:03)
[2017-06-22] MEDS: FORMOTEROL FUMARATE 20 MCG/2 ML NEBU INHALATION SCH ×2 (07:19→19:03)
[2017-06-22 07:30] LABS: Glucose,Whole Blood 152 mg/dL (75-99)
[2017-06-22] MEDS: METOPROLOL TARTRATE 12.5 MG TAB PO SCH (08:13)
[2017-06-22] MEDS: NICOTINE 14MG/24HR PATCH TRANSDERM SCH ×2 (08:13→08:15)
[2017-06-22] MEDS: PANTOPRAZOLE 40 MG TABLET PO SCH (08:14)
[2017-06-22 12:14] LABS: Glucose,Whole Blood 135 mg/dL (75-99)
--- NOTE | 2017-06-22 13:06 | P.PN ---
Subjective Progress Note Date: 06/22/17 Ms. 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 she is the steroid dependent as well as oxygen dependent for her advance emphysema and COPD patient recently has been hospitalized for pneumonia followed by acute COPD exacerbation was discharged in stable condition was doing relatively well for a day developed increasing shortness of breath with some left-sided supple coarse store chest discomfort and pain presented into the office of primary care provider has been advised to be admitted into the hospital and I was asked to evaluate this patient further patient has chronic ongoing shortness of breath and mostly dry nonproductive cough she frequently have acute severe paroxysmal episode of shortness of breath which is difficult to control and goes into coughing spells, patient does have a history of right upper lobe pulmonary nodule and severe degree of emphysema with the last CAT scan was performed somewhere around June 2016 she has been evaluated for nodule as well as abnormal CAT scan in the past at [facility] as a second opinion as well and was recommended to monitor and observe no intervention was advised 06/22/2017: Patient seen and examined covering for Dr. Huang. The patient states that she is still very short of breath today. She states she has a dry nonproductive cough. She is unable to ambulate even short distances without becoming very short of breath. She is tearful and anxious. Objective - Vital Signs Vital signs: Vital Signs Temp 97.0 F L 06/22/17 07:00 Pulse 97 06/22/17 11:17 Resp 16 06/22/17 08:00 BP 144/76 06/22/17 07:00 Pulse Ox 99 06/22/17 07:00 Intake & Output 06/21/17 06/22/17 06/22/17 18:59 06:59 18:59 Intake Total 1400 Balance 1400 Weight 51.1 kg Intake: Oral 1400 Other: Voiding Method Toilet Toilet # Voids 2 2 # Bowel Movements 1 - Exam Gen.: Patient is alert and oriented 3, she is tearful and anxious Cardiovascular: Regular rate and rhythm, S1/S2 Lungs: Diminished breath sounds bilaterally Abdomen: Soft nontender nondistended positive bowel sounds Extremities: No edema - Labs CBC & Chem 7: 06/21/17 09:59 06/20/17 18:45 Labs: Abnormal Lab Results - Last 24 Hours (Table) 03/06/21/17 06/22/17 Range/Units 17:18 20:42 07:15 POC Glucose (mg/dL) 126 H 212 H 152 H (75-99) mg/dL 06/22/17 Range/Units 12:12 POC Glucose (mg/dL) 135 H (75-99) mg/dL Assessment and Plan Assessment: Acute on chronic hypoxic respiratory failure Acute exacerbation of COPD New right upper lobe infiltrate, HCAP Left subcostal chest pain likely musculoskeletal Anxiety Hypertension Insomnia O2 to maintain saturation greater than equal to 90% Pulmicort - increase to 1mg BID Katherine Perforomist Steroid taper Incentive spirometry and pulmonary hygiene PT and OT GI and DVT prophylaxis Antibiotics: Cefepime Patient would benefit from pulmonary rehab Smoking cessation Sputum culture
--- NOTE | 2017-06-22 16:29 | PN ---
PROGRESS NOTE DATE OF SERVICE: 06/23/2007 I am covering for Dr. Piña. This 62-year-old woman was admitted with shortness of breath and COPD exacerbation is being closely monitored. Patient on steroids and bronchodilators. Dr. Huang is following the patient closely. No chest pain. No palpitations. No fever. PHYSICAL EXAM: Alert and oriented times times three. Pulse 97, blood pressure 130/64, respiration 20, temperature 96.9, pulse ox 97% on 3 L. HEENT: Conjunctivae normal. Neck: No jugular venous distention. Cardiovascular systems: S1, S2 muffled. Respiration: Breath sounds diminished in the bases. Bilateral scattered rhonchi and expiratory wheezing and crackles. ABDOMEN: Soft, nontender. Legs no edema. No swelling. Central nervous system: Higher functions as mentioned earlier. Moves all 4 limbs. No focal deficits. Lymphatics: No lymph nodes palpable in the neck, axillae or groin. SKIN: No ulcer, rash, bleeding. LAB STUDIES: At this time shows Accu-Cheks 132, 135. ASSESSMENT: 1. Chronic obstructive pulmonary disease acute exacerbation with acute purulent tracheobronchitis. 2. History of degenerative joint disease. 3. History of pneumonia. 4. Chronic hypoxic respiratory failure. 5. History of anxiety. RECOMMENDATIONS AND DISCUSSION: Recommend to continue current medications, management and symptomatic treatment. Otherwise, continue the bronchodilators. Continue with IV steroids. Cefepime has been initiated. I would also recommend Accu-Cheks a.c. and at bedtime and DVT prophylaxis also. Follow the patient closely. Symptomatic treatment. Guarded prognosis because of multiple complex medical issues. Further recommendations to follow. MMODL / IJN: [id number] /
[2017-06-22 17:23] LABS: Glucose,Whole Blood 108 mg/dL (75-99)
[2017-06-22] MEDS: INSULIN ASPART 100 UNIT/ML 1 ML 10 ML VIAL SQ SCH ×2 (17:33→21:41)
[2017-06-22] MEDS: CEFEPIME 2 GM in SODIUM CHLORIDE 0.9% 50 ML IVPB SCH (17:50)
[2017-06-22] MEDS: SODIUM CHLORIDE 0.9% 1,000 ML IV SCH (17:51)
[2017-06-22] MEDS: BUDESONIDE 1 MG/2 ML NEBU INHALATION SCH (19:03)
[2017-06-22 20:55] LABS: Glucose,Whole Blood 150 mg/dL (75-99)
[2017-06-22] MEDS: HEPARIN SODIUM,PORCINE 5,000 UNIT/ML 1 ML VIAL SQ SCH (21:43)
[2017-06-22] MEDS: METOPROLOL TARTRATE 25 MG TAB PO SCH (21:48)
[2017-06-23] MEDS ORDERED: ALPRAZolam 0.25 MG TAB PO STA (03:45)
[2017-06-23] MEDS: ALBUTEROL NEBULIZED 2.5 MG/3 ML INHALATION PRN ×2 (03:55→19:15)
[2017-06-23] MEDS: CEFEPIME 2 GM in SODIUM CHLORIDE 0.9% 50 ML IVPB SCH ×2 (05:23→17:45)
[2017-06-23] MEDS: methylPREDNISolone SOD SUCCI 125 MG/2 ML VIAL IV SCH ×4 (05:23→23:55)
[2017-06-23 07:03] LABS: Glucose,Whole Blood 106 mg/dL (75-99)
[2017-06-23] MEDS: FORMOTEROL FUMARATE 20 MCG/2 ML NEBU INHALATION SCH ×2 (07:10→19:15)
[2017-06-23] MEDS: BUDESONIDE 1 MG/2 ML NEBU INHALATION SCH ×2 (07:10→19:15)
[2017-06-23] MEDS: IPRATROPIUM-ALBUTEROL 3 ML NEB INHALATION SCH ×5 (07:11→15:44)
[2017-06-23] MEDS: METOPROLOL TARTRATE 25 MG TAB PO SCH ×2 (08:47→19:57)
[2017-06-23] MEDS: INSULIN ASPART 100 UNIT/ML 1 ML 10 ML VIAL SQ SCH ×4 (08:48→21:28)
[2017-06-23] MEDS: NICOTINE 14MG/24HR PATCH TRANSDERM SCH (08:48)
[2017-06-23] MEDS: ALPRAZolam 0.25 MG TAB PO SCH ×3 (08:48→17:45)
[2017-06-23] MEDS: PANTOPRAZOLE 40 MG TABLET PO SCH (08:48)
[2017-06-23] MEDS: HEPARIN SODIUM,PORCINE 5,000 UNIT/ML 1 ML VIAL SQ SCH ×2 (08:49→19:56)
[2017-06-23 11:21] LABS: Glucose,Whole Blood 98 mg/dL (75-99)
--- NOTE | 2017-06-23 16:41 | P.PN ---
Subjective Progress Note Date: 06/23/17 Principal diagnosis: Acute COPD exacerbation Patient is a 62-year-old female was admitted to the hospital with shortness of breath and COPD exacerbation. Currently patient is still having shortness of breath with exertion and wheezing. Patient is being continued on IV steroids and breathing treatments. Pulmonary, Dr. Huang is following this patient closely. No fever no chills. No chest pain. Patient is not at baseline. All other review of systems negative except the above Active Medications Generic Name Dose Route Start Last Admin Trade Name Freq PRN Reason Stop Dose Admin Acetaminophen 650 mg 06/20/17 18:03 Tylenol Tab PO Q6HR PRN Mild Pain or Fever > 100.5 Al Hydroxide/Mg Hydroxide 15 ml 06/20/17 18:03 Maalox PO Q6HR PRN Indigestion Albuterol Sulfate 2.5 mg 06/20/17 18:01 06/23/17 03:55 Ventolin Nebulized INHALATION 2.5 mg RT-QID PRN Administration Shortness Of Breath Albuterol/Ipratropium 3 ml 06/20/17 20:00 06/23/17 15:44 Duoneb 0.5 Mg-3 Mg/3 Ml Soln INHALATION 3 ml RT-QID [facility] Administration Alprazolam 0.25 mg 06/20/17 22:00 06/23/17 12:47 Xanax PO 0.25 mg QID [facility] Administration Budesonide 1 mg 06/22/17 20:00 06/23/17 07:10 Pulmicort INHALATION Not Given RT-BID [facility] Formoterol Fumarate 20 mcg 06/20/17 20:00 06/23/17 07:10 Perforomist INHALATION Not Given RT-BID [facility] Heparin Sodium (Porcine) 5,000 unit 06/22/17 21:00 06/23/17 08:49 Heparin SQ Not Given Q12HR [facility] Sodium Chloride 1,000 mls @ 20 mls/hr 06/20/17 18:15 06/22/17 17:51 Saline 0.9% IV 20 mls/hr .Q24H [facility] Administration Cefepime HCl 2 gm/ Sodium 50 mls @ 100 mls/hr 06/22/17 18:00 06/23/17 05:23 Chloride IVPB 100 mls/hr Q12H [facility] Administration Ibuprofen 400 mg 03/29/18 18:03 Motrin PO Q6HR PRN Mild Pain or Fever > 100.5 Insulin Aspart 0 unit 06/22/17 17:30 06/23/17 12:48 Novolog SQ Not Given ACHS [facility] Protocol Methylprednisolone Sodium Succinate 60 mg 06/20/17 18:15 06/23/17 12:48 Solu-Medrol IV 60 mg Q6HR [facility] Administration Metoprolol Tartrate 25 mg 06/22/17 21:00 06/23/17 08:47 Lopressor PO 25 mg BID [facility] Administration Miscellaneous Information 1 each 06/21/17 21:18 Rx Info: Iv Contrast Was Given MISCELLANE 06/23/17 21:18 DAILY PRN Per Protocol Nicotine 1 patch 06/21/17 09:00 06/23/17 08:48 Habitrol 14mg/24hr Patch TRANSDERM Not Given DAILY [facility] Pantoprazole Sodium 40 mg 06/21/17 07:30 06/23/17 08:48 Protonix PO 40 mg AC-BRKFST [facility] Administration Objective - Vital Signs Vital signs: Vital Signs Temp 96.2 F L 06/23/17 14:22 Pulse 93 06/23/17 15:57 Resp 18 06/23/17 15:47 BP 120/68 06/23/17 14:22 Pulse Ox 99 06/23/17 14:22 Intake & Output 06/22/17 06/23/17 06/23/17 18:59 06:59 18:59 Intake Total 100 Balance 100 Intake: Intake, IV Titration 100 Amount Cefepime 2 gm In Sodium 100 Chloride 0.9% 50 ml @ 100 mls/hr IVPB Q12H [facility] Rx# :[id number] Other: # Voids 3 1 4 - Exam PHYSICAL EXAMINATION: Patient is lying in the bed comfortably, no acute distress, awake alert and oriented.. HEENT: Normocephalic. Neck is supple. Pupils reactive. Nostrils clear. Oral cavity is moist. Ears reveal no drainage. Neck reveals no JVD, carotid bruits, or thyromegaly. CHEST EXAMINATION: Trachea is central. Symmetrical expansion. Bilateral diffuse expiratory wheezing. Scattered rhonchi. No crackles. CARDIAC: Normal S1, S2 with no gallops. No murmurs ABDOMEN: Soft. Bowel sounds normal. No organomegaly. No abdominal bruits. Extremities: reveal no edema. No clubbing or cyanosis Neurologically awake, alert, oriented x3 with well-coordinated movements. No focal deficits noted Skin: No rash or skin lesions. Psychiatric: Cooperative. Nonsuicidal Musculoskeletal: No joint swelling or deformity. Normal range of motion. - Labs CBC & Chem 7: 06/21/17 09:59 06/20/17 18:45 Labs: Abnormal Lab Results - Last 24 Hours (Table) 06/22/17 06/22/17 06/23/17 Range/Units 17:12 20:47 06:56 POC Glucose (mg/dL) 108 H 150 H 106 H (75-99) mg/dL Assessment and Plan Assessment: Acute COPD exacerbation Acute purulent tracheobronchitis and possible right upper lobe infiltrate/ HCAP DJD Chronic hypoxic respiratory failure home oxygen dependent History of pneumonia Anxiety DVT prophylaxis Plan: Patient will be continued on IV steroids and breathing treatments and antibiotics in the form of cefepime. Pulmonary is following. CT chest showed emphysema and right upper lobe scarring and infiltrate. Time with Patient: Greater than 30
[2017-06-23 17:25] LABS: Glucose,Whole Blood 141 mg/dL (75-99)
[2017-06-23] MEDS: MAG HYDROX/AL HYDROX/SIMETH 30 ML CUP PO PRN (17:27)
[2017-06-23] MEDS: SODIUM CHLORIDE 0.9% 1,000 ML IV SCH (17:47)
[2017-06-23 19:47] LABS: Hemoglobin A1C 6.4 % (4.0-6.0)
[2017-06-23] MEDS: ALPRAZolam 0.25 MG TAB PO PRN (19:57)
[2017-06-23 21:08] LABS: Glucose,Whole Blood 115 mg/dL (75-99)
[2017-06-24] MEDS: ALPRAZolam 0.25 MG TAB PO PRN ×4 (05:07→23:15)
[2017-06-24] MEDS: CEFEPIME 2 GM in SODIUM CHLORIDE 0.9% 50 ML IVPB SCH ×2 (05:07→17:01)
[2017-06-24] MEDS: methylPREDNISolone SOD SUCCI 125 MG/2 ML VIAL IV SCH ×4 (06:32→23:16)
[2017-06-24 07:00] LABS: Glucose,Whole Blood 134 mg/dL (75-99)
[2017-06-24] MEDS: BUDESONIDE 1 MG/2 ML NEBU INHALATION SCH ×2 (07:03→20:09)
[2017-06-24] MEDS: FORMOTEROL FUMARATE 20 MCG/2 ML NEBU INHALATION SCH ×2 (07:03→20:09)
[2017-06-24] MEDS: IPRATROPIUM-ALBUTEROL 3 ML NEB INHALATION SCH ×4 (07:03→20:09)
[2017-06-24] MEDS: HEPARIN SODIUM,PORCINE 5,000 UNIT/ML 1 ML VIAL SQ SCH ×2 (08:15→20:41)
[2017-06-24] MEDS: NICOTINE 14MG/24HR PATCH TRANSDERM SCH (08:15)
[2017-06-24] MEDS: PANTOPRAZOLE 40 MG TABLET PO SCH (08:15)
[2017-06-24] MEDS: INSULIN ASPART 100 UNIT/ML 1 ML 10 ML VIAL SQ SCH ×4 (08:15→21:05)
[2017-06-24] MEDS: METOPROLOL TARTRATE 25 MG TAB PO SCH ×2 (08:15→20:45)
[2017-06-24 12:15] LABS: Glucose,Whole Blood 105 mg/dL (75-99)
[2017-06-24] MEDS: SODIUM CHLORIDE 0.9% 1,000 ML IV SCH (17:02)
[2017-06-24 17:11] LABS: Glucose,Whole Blood 244 mg/dL (75-99)
[2017-06-24 20:50] LABS: Glucose,Whole Blood 132 mg/dL (75-99)
[2017-06-25] MEDS: ALPRAZolam 0.25 MG TAB PO PRN ×3 (06:33→20:47)
[2017-06-25] MEDS: methylPREDNISolone SOD SUCCI 125 MG/2 ML VIAL IV SCH ×3 (06:33→17:06)
[2017-06-25] MEDS: CEFEPIME 2 GM in SODIUM CHLORIDE 0.9% 50 ML IVPB SCH ×2 (06:34→17:06)
[2017-06-25 07:26] LABS: Glucose,Whole Blood 114 mg/dL (75-99)
[2017-06-25] MEDS: BUDESONIDE 1 MG/2 ML NEBU INHALATION SCH ×2 (07:26→20:29)
[2017-06-25] MEDS: FORMOTEROL FUMARATE 20 MCG/2 ML NEBU INHALATION SCH ×2 (07:28→20:29)
[2017-06-25] MEDS: IPRATROPIUM-ALBUTEROL 3 ML NEB INHALATION SCH ×4 (07:28→20:29)
[2017-06-25] MEDS: INSULIN ASPART 100 UNIT/ML 1 ML 10 ML VIAL SQ SCH ×4 (08:41→22:15)
[2017-06-25] MEDS: NICOTINE 14MG/24HR PATCH TRANSDERM SCH (08:41)
[2017-06-25] MEDS: HEPARIN SODIUM,PORCINE 5,000 UNIT/ML 1 ML VIAL SQ SCH ×2 (08:42→20:48)
[2017-06-25] MEDS: METOPROLOL TARTRATE 25 MG TAB PO SCH ×2 (08:42→20:47)
[2017-06-25] MEDS: PANTOPRAZOLE 40 MG TABLET PO SCH (08:42)
[2017-06-25 11:20] LABS: Glucose,Whole Blood 122 mg/dL (75-99)
--- NOTE | 2017-06-25 13:20 | P.PN ---
Subjective Progress Note Date: 06/23/17 (late entry note) Principal diagnosis: Acute COPD exacerbation, acute on chronic hypoxic respirator failure, left- sided supple coarse chest pain, history of lung nodules, chronic and generalized anxiety disorder, healthcare associated pneumonia, hypertension hypertensive cardiovascular disease 06/23/2017, patient seen and evaluated examined during the rounds, CAT scan finding reviewed with the patient, sputum cultures have been nondiagnostic, the CAT scan revealed reticular density in upper lobe suggestive of fibrosis and scarring predominantly in the right side, CAT scan revealed right upper lobe paratracheal infiltrate, patient also noted to have compression fracture of T11 vertebra, prior infiltrate noted in the right lower lobe have resolved Objective - Vital Signs Vital signs: Vital Signs Temp 96.4 F L 06/25/17 07:00 Pulse 96 06/25/17 11:16 Resp 26 H 06/25/17 07:00 BP 152/78 06/25/17 07:00 Pulse Ox 99 06/25/17 07:29 Intake & Output 06/24/17 06/25/17 06/25/17 18:59 06:59 18:59 Intake Total 1100 Balance 1100 Intake: Oral 1100 Other: Voiding Method Toilet # Voids 2 2 - Exam - Constitutional General appearance: thin short of breath on activity like making full sentence - EENT Eyes: no abnormal pupil - Neck Neck: lymphadenopathy - Respiratory Respiratory: bilateral: diminished bilaterally with some subcostal tenderness present of the left anterior lateral aspect - Cardiovascular Rhythm: regular Heart sounds: normal: S1 Abnormal Heart Sounds: no S3 Gallop - Gastrointestinal General gastrointestinal: soft, no tenderness - Neurologic Neurologic: CNII-XII intact normal neuro exam - Psychiatric Psychiatric: A&O x's 3, no appropriate affect - Labs CBC & Chem 7: 06/21/17 09:59 06/20/17 18:45 Labs: Abnormal Lab Results - Last 24 Hours (Table) 06/24/17 06/24/17 06/25/17 Range/Units 17:08 20:48 07:20 POC Glucose (mg/dL) 244 H 132 H 114 H (75-99) mg/dL 06/25/17 Range/Units 11:15 POC Glucose (mg/dL) 122 H (75-99) mg/dL Microbiology - Last 24 Hours (Table) 06/25/17 07:48 Gram Stain - Final Sputum Sputum Culture - Final Assessment and Plan Assessment: Right upper lobe pneumonia likely healthcare associated pneumonia Acute exacerbation of severe COPD Acute on chronic hypoxic respirator failure Left-sided subcostal chest pain likely related to musculoskeletal pain due to coughing and breathing Chronic and generalized anxiety disorder Hypertension hypertensive cardiovascular disease Plan: Continue gentle hydration Continue deep breathing exercises and incentive spirometry Continue IV steroids and bronchodilator in the form of nebulizer Metoprolol for history of tachycardia and hypertension to be continued lower dose Patient has been consult about smoking cessation Reviewed finding of CT angiogram with patient Arrange patient for her sputum studies as well Antibiotic adjustment Time with Patient: Greater than 30
--- NOTE | 2017-06-25 13:22 | P.PN ---
Subjective Progress Note Date: 06/24/17 Principal diagnosis: Acute COPD exacerbation, acute on chronic hypoxic respirator failure, left- sided supple coarse chest pain, history of lung nodules, chronic and generalized anxiety disorder, healthcare associated pneumonia, hypertension hypertensive cardiovascular disease 06/24/2017, patient seen eval reexamined during the rounds clinically slightly better in terms of breathing was still feeling cough congested and short of breath unable to bring the sputum back the sputum culture results and reports are reviewed computed tomography scan finding reviewed as noted previously patient remains on cephapirin antibiotics are being adjusted would recommend to continue breathing treatments deep breathing exercises incentive spirometry and follow clinical course closely 06/23/2017, patient seen and evaluated examined during the rounds, CAT scan finding reviewed with the patient, sputum cultures have been nondiagnostic, the CAT scan revealed reticular density in upper lobe suggestive of fibrosis and scarring predominantly in the right side, CAT scan revealed right upper lobe paratracheal infiltrate, patient also noted to have compression fracture of T11 vertebra, prior infiltrate noted in the right lower lobe have resolved Ms. 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 she is the steroid dependent as well as oxygen dependent for her advance emphysema and COPD patient recently has been hospitalized for pneumonia followed by acute COPD exacerbation was discharged in stable condition was doing relatively well for a day developed increasing shortness of breath with some left-sided supple coarse store chest discomfort and pain presented into the office of primary care provider has been advised to be admitted into the hospital and I was asked to evaluate this patient further patient has chronic ongoing shortness of breath and mostly dry nonproductive cough she frequently have acute severe paroxysmal episode of shortness of breath which is difficult to control and goes into coughing spells, patient does have a history of right upper lobe pulmonary nodule and severe degree of emphysema with the last CAT scan was performed somewhere around June 2016 she has been evaluated for nodule as well as abnormal CAT scan in the past at [facility] as a second opinion as well and was recommended to monitor and observe no intervention was advised Objective - Vital Signs Vital signs: Vital Signs Temp 96.4 F L 06/25/17 07:00 Pulse 96 06/25/17 11:16 Resp 26 H 06/25/17 07:00 BP 152/78 06/25/17 07:00 Pulse Ox 99 06/25/17 07:29 Intake & Output 06/24/17 06/25/17 06/25/17 18:59 06:59 18:59 Intake Total 1100 Balance 1100 Intake: Oral 1100 Other: Voiding Method Toilet # Voids 2 2 - Exam - Constitutional General appearance: thin short of breath on activity like making full sentence - EENT Eyes: no abnormal pupil - Neck Neck: lymphadenopathy - Respiratory Respiratory: bilateral: diminished bilaterally with some subcostal tenderness present of the left anterior lateral aspect - Cardiovascular Rhythm: regular Heart sounds: normal: S1 Abnormal Heart Sounds: no S3 Gallop - Gastrointestinal General gastrointestinal: soft, no tenderness - Neurologic Neurologic: CNII-XII intact normal neuro exam - Psychiatric Psychiatric: A&O x's 3, no appropriate affect - Labs CBC & Chem 7: 06/21/17 09:59 06/20/17 18:45 Labs: Abnormal Lab Results - Last 24 Hours (Table) 06/24/17 06/24/17 06/25/17 Range/Units 17:08 20:48 07:20 POC Glucose (mg/dL) 244 H 132 H 114 H (75-99) mg/dL 06/25/17 Range/Units 11:15 POC Glucose (mg/dL) 122 H (75-99) mg/dL Microbiology - Last 24 Hours (Table) 06/25/17 07:48 Gram Stain - Final Sputum Sputum Culture - Final Assessment and Plan Assessment: Right upper lobe pneumonia likely healthcare associated pneumonia Acute exacerbation of severe COPD Acute on chronic hypoxic respirator failure Left-sided subcostal chest pain likely related to musculoskeletal pain due to coughing and breathing Chronic and generalized anxiety disorder Hypertension hypertensive cardiovascular disease Plan: Continue gentle hydration Continue deep breathing exercises and incentive spirometry Continue IV steroids and bronchodilator in the form of nebulizer Metoprolol for history of tachycardia and hypertension to be continued lower dose Patient has been consult about smoking cessation Reviewed finding of CT angiogram with patient Arrange patient for her sputum studies as well Antibiotic adjustment Time with Patient: Greater than 30
--- NOTE | 2017-06-25 13:26 | P.PN ---
Subjective Progress Note Date: 06/25/17 Principal diagnosis: Acute COPD exacerbation, acute on chronic hypoxic respirator failure, left- sided supple coarse chest pain, history of lung nodules, chronic and generalized anxiety disorder, healthcare associated pneumonia, hypertension hypertensive cardiovascular disease 06/25/2017, patient seen and evaluated examined during the rounds overall respiratory status not much change she is on breathing treatments steroids and antibiotics she does get short of breath have discussed with patient at length on now for bronchoscopy and pulmonary toilet she has declined she wants to monitor observe and response of the therapy in the form antibiotics breathing treatments steroids and hold off on bronchoscopy, labs reviewed medications reviewed, care plan discussed with the patient at length 06/24/2017, patient seen eval reexamined during the rounds clinically slightly better in terms of breathing was still feeling cough congested and short of breath unable to bring the sputum back the sputum culture results and reports are reviewed computed tomography scan finding reviewed as noted previously patient remains on cephapirin antibiotics are being adjusted would recommend to continue breathing treatments deep breathing exercises incentive spirometry and follow clinical course closely 06/23/2017, patient seen and evaluated examined during the rounds, CAT scan finding reviewed with the patient, sputum cultures have been nondiagnostic, the CAT scan revealed reticular density in upper lobe suggestive of fibrosis and scarring predominantly in the right side, CAT scan revealed right upper lobe paratracheal infiltrate, patient also noted to have compression fracture of T11 vertebra, prior infiltrate noted in the right lower lobe have resolved Ms. 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 she is the steroid dependent as well as oxygen dependent for her advance emphysema and COPD patient recently has been hospitalized for pneumonia followed by acute COPD exacerbation was discharged in stable condition was doing relatively well for a day developed increasing shortness of breath with some left-sided supple coarse store chest discomfort and pain presented into the office of primary care provider has been advised to be admitted into the hospital and I was asked to evaluate this patient further patient has chronic ongoing shortness of breath and mostly dry nonproductive cough she frequently have acute severe paroxysmal episode of shortness of breath which is difficult to control and goes into coughing spells, patient does have a history of right upper lobe pulmonary nodule and severe degree of emphysema with the last CAT scan was performed somewhere around June 2016 she has been evaluated for nodule as well as abnormal CAT scan in the past at [facility] as a second opinion as well and was recommended to monitor and observe no intervention was advised Objective - Vital Signs Vital signs: Vital Signs Temp 96.4 F L 06/25/17 07:00 Pulse 96 06/25/17 11:16 Resp 26 H 06/25/17 07:00 BP 152/78 06/25/17 07:00 Pulse Ox 99 06/25/17 07:29 Intake & Output 06/24/17 06/25/17 06/25/17 18:59 06:59 18:59 Intake Total 1100 Balance 1100 Intake: Oral 1100 Other: Voiding Method Toilet # Voids 2 2 - Exam - Constitutional General appearance: thin short of breath on activity like making full sentence - EENT Eyes: no abnormal pupil - Neck Neck: lymphadenopathy - Respiratory Respiratory: bilateral: diminished bilaterally with some subcostal tenderness present of the left anterior lateral aspect - Cardiovascular Rhythm: regular Heart sounds: normal: S1 Abnormal Heart Sounds: no S3 Gallop - Gastrointestinal General gastrointestinal: soft, no tenderness - Neurologic Neurologic: CNII-XII intact normal neuro exam - Psychiatric Psychiatric: A&O x's 3, no appropriate affect - Labs CBC & Chem 7: 06/21/17 09:59 06/20/17 18:45 Labs: Abnormal Lab Results - Last 24 Hours (Table) 06/24/17 06/24/17 06/25/17 Range/Units 17:08 20:48 07:20 POC Glucose (mg/dL) 244 H 132 H 114 H (75-99) mg/dL 06/25/17 Range/Units 11:15 POC Glucose (mg/dL) 122 H (75-99) mg/dL Microbiology - Last 24 Hours (Table) 06/25/17 07:48 Gram Stain - Final Sputum Sputum Culture - Final Assessment and Plan Assessment: Right upper lobe pneumonia likely healthcare associated pneumonia Acute exacerbation of severe COPD Acute on chronic hypoxic respirator failure Left-sided subcostal chest pain likely related to musculoskeletal pain due to coughing and breathing Chronic and generalized anxiety disorder Hypertension hypertensive cardiovascular disease Plan: Continue gentle hydration Advised bronchoscopy for pulmonary toilet and getting good and adequate sample from lungs patient wants to hold off on that and she wants to observe the response of therapy Continue deep breathing exercises and incentive spirometry Continue IV steroids and bronchodilator in the form of nebulizer Metoprolol for history of tachycardia and hypertension to be continued lower dose Patient has been consult about smoking cessation Reviewed finding of CT angiogram with patient Arrange patient for her sputum studies as well Antibiotic adjustment Time with Patient: Greater than 30
[2017-06-25 17:17] LABS: Glucose,Whole Blood 189 mg/dL (75-99)
[2017-06-25 20:59] LABS: Glucose,Whole Blood 128 mg/dL (75-99)
--- NOTE | 2017-06-25 23:47 | P.PN ---
Subjective Progress Note Date: 06/24/17 Principal diagnosis: Acute COPD exacerbation Patient is a 62-year-old female was admitted to the hospital with shortness of breath and COPD exacerbation. Currently patient is still having shortness of breath with exertion and wheezing. Patient is being continued on IV steroids and breathing treatments. Pulmonary, Dr. Huang is following this patient closely. No fever no chills. No chest pain. Patient is not at baseline. 06/24/2017 patient is still complaining of shortness of breath. No fever no chills .pulmonary recommended bronchoscopy and pulmonary toilet. Patient does not want any procedure at this time. Patient is being continued on breathing treatments steroids and antibiotics. No complaints of chest pain. Saturating well on nasal cannula. No acute overnight issues. All other review of systems negative except the above Active Medications Generic Name Dose Route Start Last Admin Trade Name Freq PRN Reason Stop Dose Admin Acetaminophen 650 mg 06/20/17 18:03 Tylenol Tab PO Q6HR PRN Mild Pain or Fever > 100.5 Al Hydroxide/Mg Hydroxide 15 ml 06/20/17 18:03 Maalox PO Q6HR PRN Indigestion Albuterol Sulfate 2.5 mg 06/20/17 18:01 06/23/17 03:55 Ventolin Nebulized INHALATION 2.5 mg RT-QID PRN Administration Shortness Of Breath Albuterol/Ipratropium 3 ml 06/20/17 20:00 06/23/17 15:44 Duoneb 0.5 Mg-3 Mg/3 Ml Soln INHALATION 3 ml RT-QID [facility] Administration Alprazolam 0.25 mg 06/20/17 22:00 06/23/17 12:47 Xanax PO 0.25 mg QID [facility] Administration Budesonide 1 mg 06/22/17 20:00 06/23/17 07:10 Pulmicort INHALATION Not Given RT-BID [facility] Formoterol Fumarate 20 mcg 06/20/17 20:00 06/23/17 07:10 Perforomist INHALATION Not Given RT-BID [facility] Heparin Sodium (Porcine) 5,000 unit 06/22/17 21:00 06/23/17 08:49 Heparin SQ Not Given Q12HR [facility] Sodium Chloride 1,000 mls @ 20 mls/hr 06/20/17 18:15 06/22/17 17:51 Saline 0.9% IV 20 mls/hr .Q24H [facility] Administration Cefepime HCl 2 gm/ Sodium 50 mls @ 100 mls/hr 06/22/17 18:00 06/23/17 05:23 Chloride IVPB 100 mls/hr Q12H [facility] Administration Ibuprofen 400 mg 06/20/17 18:03 Motrin PO Q6HR PRN Mild Pain or Fever > 100.5 Insulin Aspart 0 unit 06/22/17 17:30 06/23/17 12:48 Novolog SQ Not Given ACHS [facility] Protocol Methylprednisolone Sodium Succinate 60 mg 06/20/17 18:15 06/23/17 12:48 Solu-Medrol IV 60 mg Q6HR [facility] Administration Metoprolol Tartrate 25 mg 06/22/17 21:00 06/23/17 08:47 Lopressor PO 25 mg BID [facility] Administration Miscellaneous Information 1 each 06/21/17 21:18 Rx Info: Iv Contrast Was Given MISCELLANE 06/23/17 21:18 DAILY PRN Per Protocol Nicotine 1 patch 06/21/17 09:00 06/23/17 08:48 Habitrol 14mg/24hr Patch TRANSDERM Not Given DAILY [facility] Pantoprazole Sodium 40 mg 06/21/17 07:30 06/23/17 08:48 Protonix PO 40 mg AC-BRKFST [facility] Administration Objective - Vital Signs Vital signs: Vital Signs Temp 97.3 F L 06/24/17 15:00 Pulse 88 06/24/17 20:37 Resp 18 06/24/17 16:00 BP 126/74 06/24/17 15:00 Pulse Ox 95 06/24/17 15:00 Intake & Output 06/24/17 06/24/17 06/25/17 06:59 18:59 06:59 Intake Total 700 1100 Balance 700 1100 Intake: Oral 700 1100 Other: Voiding Method Toilet # Voids 1 2 - Exam PHYSICAL EXAMINATION: Patient is lying in the bed comfortably, no acute distress, awake alert and oriented.. HEENT: Normocephalic. Neck is supple. Pupils reactive. Nostrils clear. Oral cavity is moist. Ears reveal no drainage. Neck reveals no JVD, carotid bruits, or thyromegaly. CHEST EXAMINATION: Trachea is central. Symmetrical expansion. Bilateral diffuse expiratory wheezing. Air entry diminished. No crackles. CARDIAC: Normal S1, S2 with no gallops. No murmurs ABDOMEN: Soft. Bowel sounds normal. No organomegaly. No abdominal bruits. Extremities: reveal no edema. No clubbing or cyanosis Neurologically awake, alert, oriented x3 with well-coordinated movements. No focal deficits noted Skin: No rash or skin lesions. Psychiatric: Cooperative. Nonsuicidal Musculoskeletal: No joint swelling or deformity. Normal range of motion. - Labs CBC & Chem 7: 06/21/17 09:59 06/20/17 18:45 Labs: Abnormal Lab Results - Last 24 Hours (Table) 06/21/17 06/23/17 06/24/17 Range/Units 09:57 21:01 06:44 POC Glucose (mg/dL) 115 H 134 H (75-99) mg/dL Hemoglobin A1c 6.4 H (4.0-6.0) % 06/24/17 06/24/17 Range/Units 12:03 17:08 POC Glucose (mg/dL) 105 H 244 H (75-99) mg/dL Hemoglobin A1c (4.0-6.0) % Assessment and Plan Assessment: Acute COPD exacerbation Acute purulent tracheobronchitis and possible right upper lobe infiltrate/ HCAP DJD Chronic hypoxic respiratory failure home oxygen dependent History of pneumonia Anxiety DVT prophylaxis Plan: Patient will be continued on IV steroids and breathing treatments and antibiotics in the form of cefepime. Pulmonary is following. CT chest showed emphysema and right upper lobe scarring and infiltrate. Time with Patient: Greater than 30
--- NOTE | 2017-06-25 23:49 | P.PN ---
Subjective Progress Note Date: 06/25/17 Principal diagnosis: Acute COPD exacerbation Patient is a 62-year-old female was admitted to the hospital with shortness of breath and COPD exacerbation. Currently patient is still having shortness of breath with exertion and wheezing. Patient is being continued on IV steroids and breathing treatments. Pulmonary, Dr. Huang is following this patient closely. No fever no chills. No chest pain. Patient is not at baseline. 06/24/2017 patient is still complaining of shortness of breath. No fever no chills .pulmonary recommended bronchoscopy and pulmonary toilet. Patient does not want any procedure at this time. Patient is being continued on breathing treatments steroids and antibiotics. No complaints of chest pain. Saturating well on nasal cannula. No acute overnight issues. 06/25/2017 Patient is still complaining of shortness of breath with slight improvement. No fever no chills. No nausea vomiting abdominal pain. Continued on IV steroids and breathing treatments. All other review of systems negative except the above Active Medications Generic Name Dose Route Start Last Admin Trade Name Freq PRN Reason Stop Dose Admin Acetaminophen 650 mg 06/20/17 18:03 Tylenol Tab PO Q6HR PRN Mild Pain or Fever > 100.5 Al Hydroxide/Mg Hydroxide 15 ml 06/20/17 18:03 Maalox PO Q6HR PRN Indigestion Albuterol Sulfate 2.5 mg 06/20/17 18:01 06/23/17 03:55 Ventolin Nebulized INHALATION 2.5 mg RT-QID PRN Administration Shortness Of Breath Albuterol/Ipratropium 3 ml 06/20/17 20:00 06/23/17 15:44 Duoneb 0.5 Mg-3 Mg/3 Ml Soln INHALATION 3 ml RT-QID ALVA Administration Alprazolam 0.25 mg 06/20/17 22:00 06/23/17 12:47 Xanax PO 0.25 mg QID ALVA Administration Budesonide 1 mg 06/22/17 20:00 06/23/17 07:10 Pulmicort INHALATION Not Given RT-BID [facility] Formoterol Fumarate 20 mcg 06/20/17 20:00 06/23/17 07:10 Perforomist INHALATION Not Given RT-BID [facility] Heparin Sodium (Porcine) 5,000 unit 06/22/17 21:00 06/23/17 08:49 Heparin SQ Not Given Q12HR ALVA Sodium Chloride 1,000 mls @ 20 mls/hr 06/20/17 18:15 06/22/17 17:51 Saline 0.9% IV 20 mls/hr .Q24H ALVA Administration Cefepime HCl 2 gm/ Sodium 50 mls @ 100 mls/hr 06/22/17 18:00 06/23/17 05:23 Chloride IVPB 100 mls/hr Q12H ALVA Administration Ibuprofen 400 mg 06/20/17 18:03 Motrin PO Q6HR PRN Mild Pain or Fever > 100.5 Insulin Aspart 0 unit 06/22/17 17:30 06/23/17 12:48 Novolog SQ Not Given ACHS [facility] Protocol Methylprednisolone Sodium Succinate 60 mg 06/20/17 18:15 06/23/17 12:48 Solu-Medrol IV 60 mg Q6HR ALVA Administration Metoprolol Tartrate 25 mg 06/22/17 21:00 06/23/17 08:47 Lopressor PO 25 mg BID ALVA Administration Miscellaneous Information 1 each 06/21/17 21:18 Rx Info: Iv Contrast Was Given MISCELLANE 06/23/17 21:18 DAILY PRN Per Protocol Nicotine 1 patch 06/21/17 09:00 06/23/17 08:48 Habitrol 14mg/24hr Patch TRANSDERM Not Given DAILY [facility] Pantoprazole Sodium 40 mg 06/21/17 07:30 06/23/17 08:48 Protonix PO 40 mg AC-BRKFST ALVA Administration Objective - Vital Signs Vital signs: Vital Signs Temp 97 F L 06/25/17 22:51 Pulse 96 06/25/17 22:51 Resp 16 06/25/17 22:51 BP 127/73 06/25/17 22:51 Pulse Ox 98 06/25/17 22:51 Intake & Output 06/25/17 06/25/17 06/26/17 06:59 18:59 06:59 Other: Voiding Method Toilet # Voids 2 2 1 - Exam PHYSICAL EXAMINATION: Patient is lying in the bed comfortably, no acute distress, awake alert and oriented.. HEENT: Normocephalic. Neck is supple. Pupils reactive. Nostrils clear. Oral cavity is moist. Ears reveal no drainage. Neck reveals no JVD, carotid bruits, or thyromegaly. CHEST EXAMINATION: Trachea is central. Symmetrical expansion. Bilateral diffuse expiratory wheezing. Air entry diminished. No crackles. CARDIAC: Normal S1, S2 with no gallops. No murmurs ABDOMEN: Soft. Bowel sounds normal. No organomegaly. No abdominal bruits. Extremities: reveal no edema. No clubbing or cyanosis Neurologically awake, alert, oriented x3 with well-coordinated movements. No focal deficits noted Skin: No rash or skin lesions. Psychiatric: Cooperative. Nonsuicidal Musculoskeletal: No joint swelling or deformity. Normal range of motion. - Labs CBC & Chem 7: 06/21/17 09:59 06/20/17 18:45 Labs: Abnormal Lab Results - Last 24 Hours (Table) 06/25/17 06/25/17 06/25/17 Range/Units 07:20 11:15 17:13 POC Glucose (mg/dL) 114 H 122 H 189 H (75-99) mg/dL 06/25/17 Range/Units 20:44 POC Glucose (mg/dL) 128 H (75-99) mg/dL Microbiology - Last 24 Hours (Table) 06/25/17 07:48 Gram Stain - Final Sputum Sputum Culture - Final Assessment and Plan Assessment: Acute COPD exacerbation Acute purulent tracheobronchitis and possible right upper lobe infiltrate/ HCAP DJD Chronic hypoxic respiratory failure home oxygen dependent History of pneumonia Anxiety DVT prophylaxis Plan: Patient will be continued on IV steroids and breathing treatments and antibiotics in the form of cefepime. Pulmonary is following. CT chest showed emphysema and right upper lobe scarring and infiltrate. Time with Patient: Greater than 30
[2017-06-26] MEDS: methylPREDNISolone SOD SUCCI 125 MG/2 ML VIAL IV SCH ×4 (00:02→17:06)
[2017-06-26] MEDS: MAG HYDROX/AL HYDROX/SIMETH 30 ML CUP PO PRN (01:16)
[2017-06-26] MEDS: CEFEPIME 2 GM in SODIUM CHLORIDE 0.9% 50 ML IVPB SCH ×2 (06:53→17:06)
[2017-06-26 07:08] LABS: Glucose,Whole Blood 105 mg/dL (75-99)
[2017-06-26] MEDS: ALPRAZolam 0.25 MG TAB PO PRN ×3 (07:13→19:38)
[2017-06-26] MEDS: FORMOTEROL FUMARATE 20 MCG/2 ML NEBU INHALATION SCH ×2 (07:15→18:53)
[2017-06-26] MEDS: IPRATROPIUM-ALBUTEROL 3 ML NEB INHALATION SCH ×4 (07:15→18:53)
[2017-06-26] MEDS: BUDESONIDE 1 MG/2 ML NEBU INHALATION SCH ×2 (07:15→18:53)
[2017-06-26] MEDS: INSULIN ASPART 100 UNIT/ML 1 ML 10 ML VIAL SQ SCH ×4 (07:15→21:46)
[2017-06-26] MEDS: SODIUM CHLORIDE 0.9% 1,000 ML IV SCH ×2 (07:45→20:33)
[2017-06-26 08:11] LABS: Basophils % (A) 0 %; Eosinophils % (A) 0 %; HCT 42.1 % (34.0-46.0); HGB 13.8 gm/dL (11.4-16.0); Lymphocytes # (A) 0.7 k/uL (1.0-4.8); Lymphocytes % (A) 7 %; MCH 29.6 pg (25.0-35.0); MCHC 32.8 g/dL (31.0-37.0); MCV 90.4 fL (80.0-100.0); Mean Platelet Volume 7.1; Monocytes # (A) 0.3 k/uL (0-1.0); Monocytes % (A) 4 %; Neutrophils # (A) 8.3 k/uL (1.3-7.7); Neutrophils % (A) 88 %; Platelet Count 225 k/uL (150-450); RBC 4.65 m/uL (3.80-5.40); RDW 13.6 % (11.5-15.5); WBC 9.4 k/uL (3.8-10.6)
[2017-06-26 08:31] LABS: Anion Gap 6 mmol/L; Blood Urea Nitrogen 27 mg/dL (7-17); Calcium 9.5 mg/dL (8.4-10.2); Carbon Dioxide 37 mmol/L (22-30); Chloride 95 mmol/L (98-107); Glucose 114 mg/dL (74-99); Potassium 4.6 mmol/L (3.5-5.1); Sodium 138 mmol/L (137-145)
[2017-06-26] MEDS: METOPROLOL TARTRATE 25 MG TAB PO SCH ×2 (08:54→20:37)
[2017-06-26] MEDS: PANTOPRAZOLE 40 MG TABLET PO SCH (08:54)
[2017-06-26] MEDS: NICOTINE 14MG/24HR PATCH TRANSDERM SCH (08:54)
[2017-06-26] MEDS: HEPARIN SODIUM,PORCINE 5,000 UNIT/ML 1 ML VIAL SQ SCH ×2 (08:54→20:37)
[2017-06-26 12:05] LABS: Glucose,Whole Blood 129 mg/dL (75-99)
--- NOTE | 2017-06-26 14:31 | P.PN ---
Subjective Progress Note Date: 06/26/17 Principal diagnosis: Acute COPD exacerbation, acute on chronic hypoxic respirator failure, left- sided supple coarse chest pain, history of lung nodules, chronic and generalized anxiety disorder, healthcare associated pneumonia, hypertension hypertensive cardiovascular disease 06/26/2017, patient seen eval examined during the rounds clinically doing well awake and alert breathing comfortably but still get short of breath on activity and exertion patient has been coughing intermittently but denies any rattling also denies any significant amount of his sputum production options discussed again including bronchoscopy she wants to hold onto it as she is not ready. Laboratory data reviewed medications reviewed as well 06/25/2017, patient seen and evaluated examined during the rounds overall respiratory status not much change she is on breathing treatments steroids and antibiotics she does get short of breath have discussed with patient at length on now for bronchoscopy and pulmonary toilet she has declined she wants to monitor observe and response of the therapy in the form antibiotics breathing treatments steroids and hold off on bronchoscopy, labs reviewed medications reviewed, care plan discussed with the patient at length 06/24/2017, patient seen eval reexamined during the rounds clinically slightly better in terms of breathing was still feeling cough congested and short of breath unable to bring the sputum back the sputum culture results and reports are reviewed computed tomography scan finding reviewed as noted previously patient remains on cephapirin antibiotics are being adjusted would recommend to continue breathing treatments deep breathing exercises incentive spirometry and follow clinical course closely 06/23/2017, patient seen and evaluated examined during the rounds, CAT scan finding reviewed with the patient, sputum cultures have been nondiagnostic, the CAT scan revealed reticular density in upper lobe suggestive of fibrosis and scarring predominantly in the right side, CAT scan revealed right upper lobe paratracheal infiltrate, patient also noted to have compression fracture of T11 vertebra, prior infiltrate noted in the right lower lobe have resolved Ms. 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 she is the steroid dependent as well as oxygen dependent for her advance emphysema and COPD patient recently has been hospitalized for pneumonia followed by acute COPD exacerbation was discharged in stable condition was doing relatively well for a day developed increasing shortness of breath with some left-sided supple coarse store chest discomfort and pain presented into the office of primary care provider has been advised to be admitted into the hospital and I was asked to evaluate this patient further patient has chronic ongoing shortness of breath and mostly dry nonproductive cough she frequently have acute severe paroxysmal episode of shortness of breath which is difficult to control and goes into coughing spells, patient does have a history of right upper lobe pulmonary nodule and severe degree of emphysema with the last CAT scan was performed somewhere around June 2016 she has been evaluated for nodule as well as abnormal CAT scan in the past at [facility] as a second opinion as well and was recommended to monitor and observe no intervention was advised Objective - Vital Signs Vital signs: Vital Signs Temp 97.0 F L 06/26/17 06:20 Pulse 92 06/26/17 11:06 Resp 16 06/26/17 06:20 BP 134/83 06/26/17 06:20 Pulse Ox 99 06/26/17 06:20 Intake & Output 06/25/17 06/26/17 06/26/17 18:59 06:59 18:59 Other: Voiding Method Toilet # Voids 2 2 - Exam - Constitutional General appearance: thin short of breath on activity like making full sentence - EENT Eyes: no abnormal pupil - Neck Neck: lymphadenopathy - Respiratory Respiratory: bilateral: diminished bilaterally with some subcostal tenderness present of the left anterior lateral aspect has improved significantly, fine expiratory rhonchi are present - Cardiovascular Rhythm: regular Heart sounds: normal: S1 Abnormal Heart Sounds: no S3 Gallop - Gastrointestinal General gastrointestinal: soft, no tenderness - Neurologic Neurologic: CNII-XII intact normal neuro exam - Psychiatric Psychiatric: A&O x's 3, no appropriate affect - Labs CBC & Chem 7: 06/26/17 07:52 06/26/17 07:52 Labs: Abnormal Lab Results - Last 24 Hours (Table) 06/25/17 06/25/17 06/26/17 Range/Units 17:13 20:44 07:05 Neutrophils # (1.3-7.7) k/uL Lymphocytes # (1.0-4.8) k/uL Chloride (98-107) mmol/L Carbon Dioxide (22-30) mmol/L BUN (7-17) mg/dL Glucose (74-99) mg/dL POC Glucose (mg/dL) 189 H 128 H 105 H (75-99) mg/dL 06/26/17 06/26/17 06/26/17 Range/Units 07:52 07:52 12:03 Neutrophils # 8.3 H (1.3-7.7) k/uL Lymphocytes # 0.7 L (1.0-4.8) k/uL Chloride 95 L (98-107) mmol/L Carbon Dioxide 37 H (22-30) mmol/L BUN 27 H (7-17) mg/dL Glucose 114 H (74-99) mg/dL POC Glucose (mg/dL) 129 H (75-99) mg/dL Microbiology - Last 24 Hours (Table) 06/25/17 21:27 Gram Stain - Preliminary Sputum Assessment and Plan Assessment: Right upper lobe pneumonia likely healthcare associated pneumonia , continue cephapime Acute exacerbation of severe COPD Acute on chronic hypoxic respirator failure Left-sided subcostal chest pain likely related to musculoskeletal pain due to coughing and breathing Chronic and generalized anxiety disorder Hypertension hypertensive cardiovascular disease Plan: Continue gentle hydration Advised bronchoscopy for pulmonary toilet and getting good and adequate sample from lungs patient wants to hold off on that and she wants to observe the response of therapy Continue deep breathing exercises and incentive spirometry Continue IV steroids and bronchodilator in the form of nebulizer Metoprolol for history of tachycardia and hypertension to be continued lower dose Patient has been consult about smoking cessation Reviewed finding of CT angiogram with patient Arrange patient for her sputum studies as well Antibiotic adjustment Time with Patient: Greater than 30
[2017-06-26 15:41] VITALS: BMI 21.2
[2017-06-26 16:59] LABS: Glucose,Whole Blood 105 mg/dL (75-99)
[2017-06-26 20:44] LABS: Glucose,Whole Blood 173 mg/dL (75-99)
[2017-06-27] MEDS: methylPREDNISolone SOD SUCCI 125 MG/2 ML VIAL IV SCH ×5 (00:22→23:38)
--- NOTE | 2017-06-27 00:53 | P.PN ---
Subjective Progress Note Date: 06/26/17 Principal diagnosis: Acute COPD exacerbation Patient is a 62-year-old female was admitted to the hospital with shortness of breath and COPD exacerbation. Currently patient is still having shortness of breath with exertion and wheezing. Patient is being continued on IV steroids and breathing treatments. Pulmonary, Dr. Huang is following this patient closely. No fever no chills. No chest pain. Patient is not at baseline. 06/24/2017 patient is still complaining of shortness of breath. No fever no chills .pulmonary recommended bronchoscopy and pulmonary toilet. Patient does not want any procedure at this time. Patient is being continued on breathing treatments steroids and antibiotics. No complaints of chest pain. Saturating well on nasal cannula. No acute overnight issues. 06/25/2017 Patient is still complaining of shortness of breath with slight improvement. No fever no chills. No nausea vomiting abdominal pain. Continued on IV steroids and breathing treatments. 06/26/2017 Patient is still complaining of shortness of breath. Patient is being continued on IV steroids and breathing treatments. No nausea vomiting or abdominal pain. Otherwise no acute overnight issues. All other review of systems negative except the above Active Medications Generic Name Dose Route Start Last Admin Trade Name Freq PRN Reason Stop Dose Admin Acetaminophen 650 mg 06/20/17 18:03 Tylenol Tab PO Q6HR PRN Mild Pain or Fever > 100.5 Al Hydroxide/Mg Hydroxide 15 ml 06/20/17 18:03 Maalox PO Q6HR PRN Indigestion Albuterol Sulfate 2.5 mg 06/20/17 18:01 06/23/17 03:55 Ventolin Nebulized INHALATION 2.5 mg RT-QID PRN Administration Shortness Of Breath Albuterol/Ipratropium 3 ml 06/20/17 20:00 06/23/17 15:44 Duoneb 0.5 Mg-3 Mg/3 Ml Soln INHALATION 3 ml RT-QID ALVA Administration Alprazolam 0.25 mg 06/20/17 22:00 06/23/17 12:47 Xanax PO 0.25 mg QID ALVA Administration Budesonide 1 mg 06/22/17 20:00 06/23/17 07:10 Pulmicort INHALATION Not Given RT-BID [facility] Formoterol Fumarate 20 mcg 06/20/17 20:00 06/23/17 07:10 Perforomist INHALATION Not Given RT-BID [facility] Heparin Sodium (Porcine) 5,000 unit 06/22/17 21:00 06/23/17 08:49 Heparin SQ Not Given Q12HR ALVA Sodium Chloride 1,000 mls @ 20 mls/hr 06/20/17 18:15 06/22/17 17:51 Saline 0.9% IV 20 mls/hr .Q24H [facility]VA Administration Cefepime HCl 2 gm/ Sodium 50 mls @ 100 mls/hr 06/22/17 18:00 06/23/17 05:23 Chloride IVPB 100 mls/hr Q12H [facility] Administration Ibuprofen 400 mg 06/20/17 18:03 Motrin PO Q6HR PRN Mild Pain or Fever > 100.5 Insulin Aspart 0 unit 06/22/17 17:30 06/23/17 12:48 Novolog SQ Not Given ACHS [facility] Protocol Methylprednisolone Sodium Succinate 60 mg 06/20/17 18:15 06/23/17 12:48 Solu-Medrol IV 60 mg Q6HR ALVA Administration Metoprolol Tartrate 25 mg 06/22/17 21:00 06/23/17 08:47 Lopressor PO 25 mg BID ALVA Administration Miscellaneous Information 1 each 06/21/17 21:18 Rx Info: Iv Contrast Was Given MISCELLANE 06/23/17 21:18 DAILY PRN Per Protocol Nicotine 1 patch 06/21/17 09:00 06/23/17 08:48 Habitrol 14mg/24hr Patch TRANSDERM Not Given DAILY [facility] Pantoprazole Sodium 40 mg 06/21/17 07:30 06/23/17 08:48 Protonix PO 40 mg AC-BRKFST ALVA Administration Objective - Vital Signs Vital signs: Vital Signs Temp 97.2 F L 06/26/17 21:18 Pulse 113 H 06/26/17 21:18 Resp 18 06/26/17 21:18 BP 127/58 06/26/17 21:18 Pulse Ox 95 06/26/17 21:18 Intake & Output 06/26/17 06/26/17 06/27/17 06:59 18:59 06:59 Intake Total 240 Balance 240 Weight 51.1 kg Intake: Oral 240 Other: Voiding Method Toilet # Voids 2 2 # Bowel Movements 1 - Exam PHYSICAL EXAMINATION: Patient is lying in the bed comfortably, no acute distress, awake alert and oriented.. HEENT: Normocephalic. Neck is supple. Pupils reactive. Nostrils clear. Oral cavity is moist. Ears reveal no drainage. Neck reveals no JVD, carotid bruits, or thyromegaly. CHEST EXAMINATION: Trachea is central. Symmetrical expansion. Bilateral air entry improved. Expiratory wheezing. No crackles. CARDIAC: Normal S1, S2 with no gallops. No murmurs ABDOMEN: Soft. Bowel sounds normal. No organomegaly. No abdominal bruits. Extremities: reveal no edema. No clubbing or cyanosis Neurologically awake, alert, oriented x3 with well-coordinated movements. No focal deficits noted Skin: No rash or skin lesions. Psychiatric: Cooperative. Nonsuicidal Musculoskeletal: No joint swelling or deformity. Normal range of motion. - Labs CBC & Chem 7: 06/26/17 07:52 06/26/17 07:52 Labs: Abnormal Lab Results - Last 24 Hours (Table) 06/26/17 06/26/17 06/26/17 Range/Units 07:05 07:52 07:52 Neutrophils # 8.3 H (1.3-7.7) k/uL Lymphocytes # 0.7 L (1.0-4.8) k/uL Chloride 95 L (98-107) mmol/L Carbon Dioxide 37 H (22-30) mmol/L BUN 27 H (7-17) mg/dL Glucose 114 H (74-99) mg/dL POC Glucose (mg/dL) 105 H (75-99) mg/dL 06/26/17 06/26/17 06/26/17 Range/Units 12:03 16:51 20:43 Neutrophils # (1.3-7.7) k/uL Lymphocytes # (1.0-4.8) k/uL Chloride (98-107) mmol/L Carbon Dioxide (22-30) mmol/L BUN (7-17) mg/dL Glucose (74-99) mg/dL POC Glucose (mg/dL) 129 H 105 H 173 H (75-99) mg/dL Microbiology - Last 24 Hours (Table) 06/25/17 21:27 Gram Stain - Preliminary Sputum Assessment and Plan Assessment: Acute COPD exacerbation Acute purulent tracheobronchitis and possible right upper lobe infiltrate/ HCAP DJD Chronic hypoxic respiratory failure home oxygen dependent History of pneumonia Anxiety DVT prophylaxis Plan: Patient will be continued on IV steroids and breathing treatments and antibiotics in the form of cefepime. Pulmonary is following. Patient does not want bronchoscopy and pulmonary toilet. CT chest showed emphysema and right upper lobe scarring and infiltrate. We will continue the current management and further recommendations based on the clinical course Time with Patient: Greater than 30
[2017-06-27] MEDS: ALPRAZolam 0.25 MG TAB PO PRN ×4 (01:38→19:46)
[2017-06-27] MEDS: CEFEPIME 2 GM in SODIUM CHLORIDE 0.9% 50 ML IVPB SCH ×2 (06:20→18:28)
[2017-06-27] MEDS: FORMOTEROL FUMARATE 20 MCG/2 ML NEBU INHALATION SCH ×2 (06:57→19:03)
[2017-06-27] MEDS: BUDESONIDE 1 MG/2 ML NEBU INHALATION SCH ×2 (06:57→19:03)
[2017-06-27] MEDS: IPRATROPIUM-ALBUTEROL 3 ML NEB INHALATION SCH ×4 (06:57→19:03)
[2017-06-27 07:06] LABS: Glucose,Whole Blood 128 mg/dL (75-99)
[2017-06-27] MEDS: INSULIN ASPART 100 UNIT/ML 1 ML 10 ML VIAL SQ SCH ×4 (07:41→21:31)
[2017-06-27] MEDS: METOPROLOL TARTRATE 25 MG TAB PO SCH ×2 (08:03→21:18)
[2017-06-27] MEDS: PANTOPRAZOLE 40 MG TABLET PO SCH (08:03)
[2017-06-27] MEDS: NICOTINE 14MG/24HR PATCH TRANSDERM SCH (08:04)
[2017-06-27] MEDS: HEPARIN SODIUM,PORCINE 5,000 UNIT/ML 1 ML VIAL SQ SCH ×2 (08:04→21:18)
[2017-06-27 12:30] LABS: Glucose,Whole Blood 117 mg/dL (75-99)
[2017-06-27] MEDS: ALBUTEROL NEBULIZED 2.5 MG/3 ML INHALATION PRN (15:02)
--- NOTE | 2017-06-27 15:17 | P.PN ---
Subjective Progress Note Date: 06/27/17 Principal diagnosis: Acute COPD exacerbation, acute on chronic hypoxic respirator failure, left- sided supple coarse chest pain, history of lung nodules, chronic and generalized anxiety disorder, healthcare associated pneumonia, hypertension hypertensive cardiovascular disease 06/27/2017, patient seen irving reexamined during the rounds she is still very short of breath especially on minimal activity becomes very dyspneic during my evaluation she just came out of the washroom and taking 5 status because very short of breath huffing and puffing denies any chest pain I have discussed with her about bronchoscopy she continued to decline I've discussed with her option of using a CPAP as needed during the day in each night with the hope that they will improve the oxygenation and ventilation and take away some of the discomfort of the breathing difficulty she is agreeable will put patient on CPAP of 5 and monitor observe patient initially will appraise at least night during sleep and when necessary during the day while she is awake 06/26/2017, patient seen irving examined during the rounds clinically doing well awake and alert breathing comfortably but still get short of breath on activity and exertion patient has been coughing intermittently but denies any rattling also denies any significant amount of his sputum production options discussed again including bronchoscopy she wants to hold onto it as she is not ready. Laboratory data reviewed medications reviewed as well 06/25/2017, patient seen and evaluated examined during the rounds overall respiratory status not much change she is on breathing treatments steroids and antibiotics she does get short of breath have discussed with patient at length on now for bronchoscopy and pulmonary toilet she has declined she wants to monitor observe and response of the therapy in the form antibiotics breathing treatments steroids and hold off on bronchoscopy, labs reviewed medications reviewed, care plan discussed with the patient at length 06/24/2017, patient seen irving reexamined during the rounds clinically slightly better in terms of breathing was still feeling cough congested and short of breath unable to bring the sputum back the sputum culture results and reports are reviewed computed tomography scan finding reviewed as noted previously patient remains on cephapirin antibiotics are being adjusted would recommend to continue breathing treatments deep breathing exercises incentive spirometry and follow clinical course closely 06/23/2017, patient seen and evaluated examined during the rounds, CAT scan finding reviewed with the patient, sputum cultures have been nondiagnostic, the CAT scan revealed reticular density in upper lobe suggestive of fibrosis and scarring predominantly in the right side, CAT scan revealed right upper lobe paratracheal infiltrate, patient also noted to have compression fracture of T11 vertebra, prior infiltrate noted in the right lower lobe have resolved Ms. 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 she is the steroid dependent as well as oxygen dependent for her advance emphysema and COPD patient recently has been hospitalized for pneumonia followed by acute COPD exacerbation was discharged in stable condition was doing relatively well for a day developed increasing shortness of breath with some left-sided supple coarse store chest discomfort and pain presented into the office of primary care provider has been advised to be admitted into the hospital and I was asked to evaluate this patient further patient has chronic ongoing shortness of breath and mostly dry nonproductive cough she frequently have acute severe paroxysmal episode of shortness of breath which is difficult to control and goes into coughing spells, patient does have a history of right upper lobe pulmonary nodule and severe degree of emphysema with the last CAT scan was performed somewhere around June 2016 she has been evaluated for nodule as well as abnormal CAT scan in the past at [facility] as a second opinion as well and was recommended to monitor and observe no intervention was advised Objective - Vital Signs Vital signs: Vital Signs Temp 96.8 F L 06/27/17 15:00 Pulse 84 06/27/17 15:03 Resp 18 06/27/17 15:00 BP 156/85 06/27/17 15:00 Pulse Ox 96 06/27/17 15:00 Intake & Output 06/26/17 06/27/17 06/27/17 18:59 06:59 18:59 Intake Total 240 Balance 240 Weight 51.1 kg Intake: Oral 240 Other: Voiding Method Toilet # Voids 2 1 3 # Bowel Movements 1 - Exam - Constitutional General appearance: thin short of breath on activity like making full sentence and minimal activity like taking for 5 steps - EENT Eyes: no abnormal pupil - Neck Neck: lymphadenopathy - Respiratory Respiratory: bilateral: diminished bilaterally with some subcostal tenderness present of the left anterior lateral aspect has improved significantly, fine expiratory rhonchi are present - Cardiovascular Rhythm: regular Heart sounds: normal: S1 Abnormal Heart Sounds: no S3 Gallop - Gastrointestinal General gastrointestinal: soft, no tenderness - Neurologic Neurologic: CNII-XII intact normal neuro exam - Psychiatric Psychiatric: A&O x's 3, no appropriate affect - Labs CBC & Chem 7: 06/26/17 07:52 06/26/17 07:52 Labs: Abnormal Lab Results - Last 24 Hours (Table) 06/26/17 06/26/17 06/27/17 Range/Units 16:51 20:43 06:56 POC Glucose (mg/dL) 105 H 173 H 128 H (75-99) mg/dL 06/27/17 Range/Units 12:11 POC Glucose (mg/dL) 117 H (75-99) mg/dL Microbiology - Last 24 Hours (Table) 06/25/17 21:27 Gram Stain - Preliminary Sputum Assessment and Plan Assessment: Right upper lobe pneumonia likely healthcare associated pneumonia , continue cephapime Acute exacerbation of severe COPD Acute on chronic hypoxic respirator failure Left-sided subcostal chest pain likely related to musculoskeletal pain due to coughing and breathing Chronic and generalized anxiety disorder Hypertension hypertensive cardiovascular disease Plan: Trial of CPAP 5 cm water while awake as needed and during sleep Advised bronchoscopy for pulmonary toilet and getting good and adequate sample from lungs patient wants to hold off on that and she wants to observe the response of therapy Continue deep breathing exercises and incentive spirometry Continue IV steroids and bronchodilator in the form of nebulizer Metoprolol for history of tachycardia and hypertension to be continued lower dose Patient has been consult about smoking cessation Reviewed finding of CT angiogram with patient Arrange patient for her sputum studies as well Antibiotic adjustment Time with Patient: Greater than 30
[2017-06-27 16:55] LABS: Glucose,Whole Blood 135 mg/dL (75-99)
[2017-06-27] MEDS: SODIUM CHLORIDE 0.9% 1,000 ML IV SCH (18:58)
[2017-06-27 20:54] LABS: Glucose,Whole Blood 149 mg/dL (75-99)
--- NOTE | 2017-06-28 01:07 | P.PN ---
Subjective Progress Note Date: 06/27/17 Principal diagnosis: Acute COPD exacerbation Patient is a 62-year-old female was admitted to the hospital with shortness of breath and COPD exacerbation. Currently patient is still having shortness of breath with exertion and wheezing. Patient is being continued on IV steroids and breathing treatments. Pulmonary, Dr. Huang is following this patient closely. No fever no chills. No chest pain. Patient is not at baseline. 06/24/2017 patient is still complaining of shortness of breath. No fever no chills .pulmonary recommended bronchoscopy and pulmonary toilet. Patient does not want any procedure at this time. Patient is being continued on breathing treatments steroids and antibiotics. No complaints of chest pain. Saturating well on nasal cannula. No acute overnight issues. 06/25/2017 Patient is still complaining of shortness of breath with slight improvement. No fever no chills. No nausea vomiting abdominal pain. Continued on IV steroids and breathing treatments. 06/26/2017 Patient is still complaining of shortness of breath. Patient is being continued on IV steroids and breathing treatments. No nausea vomiting or abdominal pain. Otherwise no acute overnight issues. 06/27/2017 Patient is still complaining of shortness of breath. Pulmonary is following and plan to arrange BiPAP. Patient refused to get bronchoscopy and pulmonary toilet. Otherwise no fever no chills. No chest pain , no other acute overnight issues. All other review of systems negative except the above Active Medications Generic Name Dose Route Start Last Admin Trade Name Freq PRN Reason Stop Dose Admin Acetaminophen 650 mg 06/20/17 18:03 Tylenol Tab PO Q6HR PRN Mild Pain or Fever > 100.5 Al Hydroxide/Mg Hydroxide 15 ml 06/20/17 18:03 Maalox PO Q6HR PRN Indigestion Albuterol Sulfate 2.5 mg 06/20/17 18:01 06/23/17 03:55 Ventolin Nebulized INHALATION 2.5 mg RT-QID PRN Administration Shortness Of Breath Albuterol/Ipratropium 3 ml 06/20/17 20:00 06/23/17 15:44 Duoneb 0.5 Mg-3 Mg/3 Ml Soln INHALATION 3 ml RT-QID ALVA Administration Alprazolam 0.25 mg 06/20/17 22:00 06/23/17 12:47 Xanax PO 0.25 mg QID ALVA Administration Budesonide 1 mg 06/22/17 20:00 06/23/17 07:10 Pulmicort INHALATION Not Given RT-BID [facility] Formoterol Fumarate 20 mcg 06/20/17 20:00 06/23/17 07:10 Perforomist INHALATION Not Given RT-BID [facility] Heparin Sodium (Porcine) 5,000 unit 06/22/17 21:00 06/23/17 08:49 Heparin SQ Not Given Q12HR ALVA Sodium Chloride 1,000 mls @ 20 mls/hr 06/20/17 18:15 06/22/17 17:51 Saline 0.9% IV 20 mls/hr .Q24H [facility] Administration Cefepime HCl 2 gm/ Sodium 50 mls @ 100 mls/hr 06/22/17 18:00 06/23/17 05:23 Chloride IVPB 100 mls/hr Q12H [facility] Administration Ibuprofen 400 mg 06/20/17 18:03 Motrin PO Q6HR PRN Mild Pain or Fever > 100.5 Insulin Aspart 0 unit 06/22/17 17:30 06/23/17 12:48 Novolog SQ Not Given ACHS [facility] Protocol Methylprednisolone Sodium Succinate 60 mg 06/20/17 18:15 06/23/17 12:48 Solu-Medrol IV 60 mg Q6HR [facility] Administration Metoprolol Tartrate 25 mg 06/22/17 21:00 06/23/17 08:47 Lopressor PO 25 mg BID [facility] Administration Miscellaneous Information 1 each 06/21/17 21:18 Rx Info: Iv Contrast Was Given MISCELLANE 06/23/17 21:18 DAILY PRN Per Protocol Nicotine 1 patch 06/21/17 09:00 06/23/17 08:48 Habitrol 14mg/24hr Patch TRANSDERM Not Given DAILY [facility] Pantoprazole Sodium 40 mg 06/21/17 07:30 06/23/17 08:48 Protonix PO 40 mg AC-[id number] [facility] Administration Objective - Vital Signs Vital signs: Vital Signs Temp 98.7 F 06/27/17 06:28 Pulse 110 H 06/27/17 07:20 Resp 16 06/27/17 06:57 BP 127/73 06/27/17 06:28 Pulse Ox 100 06/27/17 06:28 Intake & Output 06/26/17 06/27/17 06/27/17 18:59 06:59 18:59 Intake Total 240 Balance 240 Weight 51.1 kg Intake: Oral 240 Other: Voiding Method Toilet # Voids 2 1 # Bowel Movements 1 - Exam PHYSICAL EXAMINATION: Patient is lying in the bed comfortably, no acute distress, awake alert and oriented.. HEENT: Normocephalic. Neck is supple. Pupils reactive. Nostrils clear. Oral cavity is moist. Ears reveal no drainage. Neck reveals no JVD, carotid bruits, or thyromegaly. CHEST EXAMINATION: Trachea is central. Symmetrical expansion. Bilateral air entry improved. Expiratory wheezing. No crackles. CARDIAC: Normal S1, S2 with no gallops. No murmurs ABDOMEN: Soft. Bowel sounds normal. No organomegaly. No abdominal bruits. Extremities: reveal no edema. No clubbing or cyanosis Neurologically awake, alert, oriented x3 with well-coordinated movements. No focal deficits noted Skin: No rash or skin lesions. Psychiatric: Cooperative. Nonsuicidal Musculoskeletal: No joint swelling or deformity. Normal range of motion. - Labs CBC & Chem 7: 06/26/17 07:52 06/26/17 07:52 Labs: Abnormal Lab Results - Last 24 Hours (Table) 06/26/17 06/26/17 06/27/17 Range/Units 16:51 20:43 06:56 POC Glucose (mg/dL) 105 H 173 H 128 H (75-99) mg/dL 06/27/17 Range/Units 12:11 POC Glucose (mg/dL) 117 H (75-99) mg/dL Microbiology - Last 24 Hours (Table) 06/25/17 21:27 Gram Stain - Preliminary Sputum Assessment and Plan Assessment: Acute COPD exacerbation Acute purulent tracheobronchitis and possible right upper lobe infiltrate/ HCAP DJD Chronic hypoxic respiratory failure home oxygen dependent History of pneumonia Anxiety DVT prophylaxis Plan: Patient will be continued on IV steroids and breathing treatments and antibiotics in the form of cefepime. Pulmonary is following. Patient does not want bronchoscopy and pulmonary toilet. CT chest showed emphysema and right upper lobe scarring and infiltrate. We will continue the current management and further recommendations based on the clinical course Time with Patient: Greater than 30
[2017-06-28] MEDS: ALPRAZolam 0.25 MG TAB PO PRN ×4 (01:48→19:38)
[2017-06-28] MEDS: PANTOPRAZOLE 40 MG TABLET PO SCH (06:49)
[2017-06-28] MEDS: methylPREDNISolone SOD SUCCI 125 MG/2 ML VIAL IV SCH ×4 (06:49→23:54)
[2017-06-28] MEDS: CEFEPIME 2 GM in SODIUM CHLORIDE 0.9% 50 ML IVPB SCH ×2 (06:49→18:59)
[2017-06-28 07:00] LABS: Glucose,Whole Blood 134 mg/dL (75-99)
[2017-06-28] MEDS: INSULIN ASPART 100 UNIT/ML 1 ML 10 ML VIAL SQ SCH ×4 (07:00→21:11)
[2017-06-28] MEDS: FORMOTEROL FUMARATE 20 MCG/2 ML NEBU INHALATION SCH ×2 (07:11→19:38)
[2017-06-28] MEDS: IPRATROPIUM-ALBUTEROL 3 ML NEB INHALATION SCH ×4 (07:11→19:38)
[2017-06-28] MEDS: BUDESONIDE 1 MG/2 ML NEBU INHALATION SCH ×2 (07:11→19:38)
[2017-06-28] MEDS: HEPARIN SODIUM,PORCINE 5,000 UNIT/ML 1 ML VIAL SQ SCH ×2 (07:42→21:02)
[2017-06-28] MEDS: NICOTINE 14MG/24HR PATCH TRANSDERM SCH (07:42)
[2017-06-28] MEDS: METOPROLOL TARTRATE 25 MG TAB PO SCH ×2 (07:43→21:02)
[2017-06-28 12:35] LABS: Glucose,Whole Blood 119 mg/dL (75-99)
--- NOTE | 2017-06-28 14:29 | P.PN ---
Subjective Progress Note Date: 06/28/17 Principal diagnosis: Acute COPD exacerbation, acute on chronic hypoxic respirator failure, left- sided supple coarse chest pain, history of lung nodules, chronic and generalized anxiety disorder, healthcare associated pneumonia, hypertension hypertensive cardiovascular disease 06/28/2017, patient seen irving examined during the rounds she has a trial of CPAP which she tolerated very well she used it about 4-6 hours last night she is less short of breath breathing K more comfortably able to get up but still get short of breath on activity and exertion she does have dry nonproductive cough and severe degree of dyspnea on exertion, patient expresses her desire to use the CPAP machine as needed during the day in each night during sleep, care plan discussed with the staff at length 06/27/2017, patient seen irving reexamined during the rounds she is still very short of breath especially on minimal activity becomes very dyspneic during my evaluation she just came out of the washroom and taking 5 status because very short of breath huffing and puffing denies any chest pain I have discussed with her about bronchoscopy she continued to decline I've discussed with her option of using a CPAP as needed during the day in each night with the hope that they will improve the oxygenation and ventilation and take away some of the discomfort of the breathing difficulty she is agreeable will put patient on CPAP of 5 and monitor observe patient initially will appraise at least night during sleep and when necessary during the day while she is awake 06/26/2017, patient seen irving examined during the rounds clinically doing well awake and alert breathing comfortably but still get short of breath on activity and exertion patient has been coughing intermittently but denies any rattling also denies any significant amount of his sputum production options discussed again including bronchoscopy she wants to hold onto it as she is not ready. Laboratory data reviewed medications reviewed as well 06/25/2017, patient seen and evaluated examined during the rounds overall respiratory status not much change she is on breathing treatments steroids and antibiotics she does get short of breath have discussed with patient at length on now for bronchoscopy and pulmonary toilet she has declined she wants to monitor observe and response of the therapy in the form antibiotics breathing treatments steroids and hold off on bronchoscopy, labs reviewed medications reviewed, care plan discussed with the patient at length 06/24/2017, patient seen irving reexamined during the rounds clinically slightly better in terms of breathing was still feeling cough congested and short of breath unable to bring the sputum back the sputum culture results and reports are reviewed computed tomography scan finding reviewed as noted previously patient remains on cephapirin antibiotics are being adjusted would recommend to continue breathing treatments deep breathing exercises incentive spirometry and follow clinical course closely 06/23/2017, patient seen and evaluated examined during the rounds, CAT scan finding reviewed with the patient, sputum cultures have been nondiagnostic, the CAT scan revealed reticular density in upper lobe suggestive of fibrosis and scarring predominantly in the right side, CAT scan revealed right upper lobe paratracheal infiltrate, patient also noted to have compression fracture of T11 vertebra, prior infiltrate noted in the right lower lobe have resolved Ms. 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 she is the steroid dependent as well as oxygen dependent for her advance emphysema and COPD patient recently has been hospitalized for pneumonia followed by acute COPD exacerbation was discharged in stable condition was doing relatively well for a day developed increasing shortness of breath with some left-sided supple coarse store chest discomfort and pain presented into the office of primary care provider has been advised to be admitted into the hospital and I was asked to evaluate this patient further patient has chronic ongoing shortness of breath and mostly dry nonproductive cough she frequently have acute severe paroxysmal episode of shortness of breath which is difficult to control and goes into coughing spells, patient does have a history of right upper lobe pulmonary nodule and severe degree of emphysema with the last CAT scan was performed somewhere around June 2016 she has been evaluated for nodule as well as abnormal CAT scan in the past at [facility] as a second opinion as well and was recommended to monitor and observe no intervention was advised Objective - Vital Signs Vital signs: Vital Signs Temp 98.7 F 06/28/17 06:49 Pulse 101 H 06/28/17 07:50 Resp 18 06/28/17 07:50 BP 160/94 06/28/17 06:49 Pulse Ox 98 06/28/17 06:49 Intake & Output 06/27/17 06/28/17 06/28/17 18:59 06:59 18:59 Intake Total 75 Balance 75 Weight 51.1 kg Intake: Oral 75 Other: Voiding Method Toilet Toilet # Voids 3 2 1 - Exam - Constitutional General appearance: thin short of breath on activity like making full sentence and minimal activity like taking for 5 steps - EENT Eyes: no abnormal pupil - Neck Neck: lymphadenopathy - Respiratory Respiratory: bilateral: diminished bilaterally with some subcostal tenderness present of the left anterior lateral aspect has improved significantly, fine expiratory rhonchi are present - Cardiovascular Rhythm: regular Heart sounds: normal: S1 Abnormal Heart Sounds: no S3 Gallop - Gastrointestinal General gastrointestinal: soft, no tenderness - Neurologic Neurologic: CNII-XII intact normal neuro exam - Psychiatric Psychiatric: A&O x's 3, no appropriate affect - Labs CBC & Chem 7: 06/26/17 07:52 06/26/17 07:52 Labs: Abnormal Lab Results - Last 24 Hours (Table) 06/27/17 06/27/17 06/28/17 Range/Units 16:52 20:46 06:56 POC Glucose (mg/dL) 135 H 149 H 134 H (75-99) mg/dL 06/28/17 Range/Units 11:57 POC Glucose (mg/dL) 119 H (75-99) mg/dL Microbiology - Last 24 Hours (Table) 06/25/17 21:27 Gram Stain - Final Sputum Sputum Culture - Final Assessment and Plan Assessment: Right upper lobe pneumonia likely healthcare associated pneumonia , continue cephapime Acute exacerbation of severe COPD Acute on chronic hypoxic respirator failure Left-sided subcostal chest pain likely related to musculoskeletal pain due to coughing and breathing Chronic and generalized anxiety disorder Hypertension hypertensive cardiovascular disease Plan: Trial of CPAP 5 cm water while awake as needed and during sleep every night patient appears to be tolerating well Advised bronchoscopy for pulmonary toilet and getting good and adequate sample from lungs patient wants to hold off on that and she wants to observe the response of therapy Continue deep breathing exercises and incentive spirometry Continue IV steroids and bronchodilator in the form of nebulizer Metoprolol for history of tachycardia and hypertension to be continued lower dose Patient has been consult about smoking cessation Reviewed finding of CT angiogram with patient Arrange patient for her sputum studies as well Antibiotic adjustment Time with Patient: Greater than 30
[2017-06-28 17:47] LABS: Glucose,Whole Blood 146 mg/dL (75-99)
--- NOTE | 2017-06-28 18:06 | P.PN ---
Subjective Progress Note Date: 06/28/17 Principal diagnosis: Acute exacerbation COPD, acute on chronic hypoxic respiratory failure, left- sided chest pain, chronic and generalized anxiety disorder, healthcare associated pneumonia, hypertensive cardiovascular disease, hypertension. Ms. 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 she is the steroid dependent as well as oxygen dependent for her advance emphysema and COPD patient recently has been hospitalized for pneumonia followed by acute COPD exacerbation was discharged in stable condition was doing relatively well for a day developed increasing shortness of breath with some left-sided supple coarse store chest discomfort and pain presented into the office of primary care provider has been advised to be admitted into the hospital and I was asked to evaluate this patient further patient has chronic ongoing shortness of breath and mostly dry nonproductive cough she frequently have acute severe paroxysmal episode of shortness of breath which is difficult to control and goes into coughing spells, patient does have a history of right upper lobe pulmonary nodule and severe degree of emphysema with the last CAT scan was performed somewhere around June 2016 she has been evaluated for nodule as well as abnormal CAT scan in the past at [facility] as a second opinion as well and was recommended to monitor and observe no intervention was advised 06/28/2017, patient seen eval examined during the rounds she has a trial of CPAP which she tolerated very well she used it about 4-6 hours last night she is less short of breath breathing K more comfortably able to get up but still get short of breath on activity and exertion she does have dry nonproductive cough and severe degree of dyspnea on exertion, patient expresses her desire to use the CPAP machine as needed during the day in each night during sleep, care plan discussed with the staff at length Objective - Vital Signs Vital signs: Vital Signs Temp 98.3 F 06/28/17 15:00 Pulse 101 H 06/28/17 15:52 Resp 16 06/28/17 15:52 BP 119/71 06/28/17 15:00 Pulse Ox 99 06/28/17 15:00 Intake & Output 06/27/17 06/28/17 06/28/17 18:59 06:59 18:59 Intake Total 1275 Balance 1275 Weight 51.1 kg Intake: Oral 1275 Other: Voiding Method Toilet Toilet # Voids 3 2 4 - Exam - Constitutional General appearance: thin short of breath on activity like making full sentence and minimal activity like taking for 5 steps - EENT Eyes: no abnormal pupil - Neck Neck: lymphadenopathy - Respiratory Respiratory: bilateral: diminished bilaterally with some subcostal tenderness present of the left anterior lateral aspect has improved significantly, fine expiratory rhonchi are present - Cardiovascular Rhythm: regular Heart sounds: normal: S1 Abnormal Heart Sounds: no S3 Gallop - Gastrointestinal General gastrointestinal: soft, no tenderness - Neurologic Neurologic: CNII-XII intact normal neuro exam - Psychiatric Psychiatric: A&O x's 3, no appropriate affect - Labs CBC & Chem 7: 06/26/17 07:52 06/26/17 07:52 Labs: Abnormal Lab Results - Last 24 Hours (Table) 06/27/17 06/28/17 06/28/17 Range/Units 20:46 06:56 11:57 POC Glucose (mg/dL) 149 H 134 H 119 H (75-99) mg/dL 06/28/17 Range/Units 17:16 POC Glucose (mg/dL) 146 H (75-99) mg/dL Microbiology - Last 24 Hours (Table) 06/25/17 21:27 Gram Stain - Final Sputum Sputum Culture - Final Assessment and Plan Assessment: 1. Right upper lobe pneumonia likely healthcare associated pneumonia , continue cephapime 2. Acute exacerbation of severe COPD 3. Acute on chronic hypoxic respirator failure 4. Left-sided subcostal chest pain likely related to musculoskeletal pain due to coughing and breathing 5. Chronic and generalized anxiety disorder 6. Hypertension hypertensive cardiovascular disease Plan: Trial of CPAP 5 cm water while awake as needed and during sleep every night patient appears to be tolerating well; Patient was Advised bronchoscopy for pulmonary toilet and getting good and adequate sample from lungs patient wants to hold off on that and she wants to observe the response of therapy Continue deep breathing exercises and incentive spirometry; patient remains on IV steroids and bronchodilator in the form of nebulizer; continue with Metoprolol for history of tachycardia and hypertension to be continued lower dose Time with Patient: Greater than 30
[2017-06-28 20:48] LABS: Glucose,Whole Blood 153 mg/dL (75-99)
[2017-06-28] MEDS: SODIUM CHLORIDE 0.9% 1,000 ML IV SCH (20:56)
[2017-06-28] MEDS: ACETAMINOPHEN TAB 325 MG TAB PO PRN (23:53)
[2017-06-29] MEDS: ALPRAZolam 0.25 MG TAB PO PRN ×4 (01:17→20:42)
[2017-06-29] MEDS: methylPREDNISolone SOD SUCCI 125 MG/2 ML VIAL IV SCH ×3 (06:39→17:00)
[2017-06-29 07:31] LABS: Glucose,Whole Blood 130 mg/dL (75-99)
[2017-06-29 07:38] LABS: Basophils % (A) 0 %; Eosinophils % (A) 0 %; HCT 39.1 % (34.0-46.0); HGB 13.2 gm/dL (11.4-16.0); Lymphocytes # (A) 0.6 k/uL (1.0-4.8); Lymphocytes % (A) 5 %; MCH 30.5 pg (25.0-35.0); MCHC 33.9 g/dL (31.0-37.0); Monocytes # (A) 0.5 k/uL (0-1.0); Monocytes % (A) 4 %; Neutrophils # (A) 11.4 k/uL (1.3-7.7); Neutrophils % (A) 90 %; Platelet Count 160 k/uL (150-450); RBC 4.34 m/uL (3.80-5.40); RDW 13.4 % (11.5-15.5); WBC 12.6 k/uL (3.8-10.6)
[2017-06-29 07:48] LABS: Anion Gap 6 mmol/L; Blood Urea Nitrogen 34 mg/dL (7-17); Calcium 9.2 mg/dL (8.4-10.2); Carbon Dioxide 38 mmol/L (22-30); Chloride 92 mmol/L (98-107); Glucose 128 mg/dL (74-99); Potassium 5.1 mmol/L (3.5-5.1); Sodium 136 mmol/L (137-145)
[2017-06-29] MEDS: HEPARIN SODIUM,PORCINE 5,000 UNIT/ML 1 ML VIAL SQ SCH ×2 (07:54→20:42)
[2017-06-29] MEDS: NICOTINE 14MG/24HR PATCH TRANSDERM SCH (07:54)
[2017-06-29] MEDS: INSULIN ASPART 100 UNIT/ML 1 ML 10 ML VIAL SQ SCH ×4 (07:54→21:33)
[2017-06-29] MEDS: PANTOPRAZOLE 40 MG TABLET PO SCH (07:56)
[2017-06-29] MEDS: METOPROLOL TARTRATE 25 MG TAB PO SCH ×2 (07:56→20:42)
[2017-06-29] MEDS: CEFEPIME 2 GM in SODIUM CHLORIDE 0.9% 50 ML IVPB SCH ×2 (07:56→17:00)
[2017-06-29] MEDS: FORMOTEROL FUMARATE 20 MCG/2 ML NEBU INHALATION SCH ×2 (08:12→20:08)
[2017-06-29] MEDS: IPRATROPIUM-ALBUTEROL 3 ML NEB INHALATION SCH ×4 (08:13→20:08)
[2017-06-29] MEDS: BUDESONIDE 1 MG/2 ML NEBU INHALATION SCH ×2 (08:13→20:08)
[2017-06-29 12:18] LABS: Glucose,Whole Blood 145 mg/dL (75-99)
[2017-06-29] MEDS ORDERED: DRY MOUTH SPRAY 44.3 SPRAY/44.3 ML SPRAY MUCOUS MEM PRN (12:46)
--- NOTE | 2017-06-29 15:38 | P.PN ---
Subjective Progress Note Date: 06/29/17 Principal diagnosis: Acute COPD exacerbation, acute on chronic hypoxic respirator failure, left- sided supple coarse chest pain, history of lung nodules, chronic and generalized anxiety disorder, healthcare associated pneumonia, hypertension hypertensive cardiovascular disease 06/28/2017, patient seen and evaluated examined the rounds clinically doing well awake and alert she has been using CPAP off and on with some relief will check an arterial blood gas to evaluate patient for a need for BiPAP at home patient remains on antibiotics breathing treatments steroids severity or shortness of breath today appears to be slightly less than before 06/28/2017, patient seen irving examined during the rounds she has a trial of CPAP which she tolerated very well she used it about 4-6 hours last night she is less short of breath breathing K more comfortably able to get up but still get short of breath on activity and exertion she does have dry nonproductive cough and severe degree of dyspnea on exertion, patient expresses her desire to use the CPAP machine as needed during the day in each night during sleep, care plan discussed with the staff at length 06/27/2017, patient seen irving reexamined during the rounds she is still very short of breath especially on minimal activity becomes very dyspneic during my evaluation she just came out of the washroom and taking 5 status because very short of breath huffing and puffing denies any chest pain I have discussed with her about bronchoscopy she continued to decline I've discussed with her option of using a CPAP as needed during the day in each night with the hope that they will improve the oxygenation and ventilation and take away some of the discomfort of the breathing difficulty she is agreeable will put patient on CPAP of 5 and monitor observe patient initially will appraise at least night during sleep and when necessary during the day while she is awake 06/26/2017, patient seen irving examined during the rounds clinically doing well awake and alert breathing comfortably but still get short of breath on activity and exertion patient has been coughing intermittently but denies any rattling also denies any significant amount of his sputum production options discussed again including bronchoscopy she wants to hold onto it as she is not ready. Laboratory data reviewed medications reviewed as well 06/25/2017, patient seen and evaluated examined during the rounds overall respiratory status not much change she is on breathing treatments steroids and antibiotics she does get short of breath have discussed with patient at length on now for bronchoscopy and pulmonary toilet she has declined she wants to monitor observe and response of the therapy in the form antibiotics breathing treatments steroids and hold off on bronchoscopy, labs reviewed medications reviewed, care plan discussed with the patient at length 06/24/2017, patient seen eval reexamined during the rounds clinically slightly better in terms of breathing was still feeling cough congested and short of breath unable to bring the sputum back the sputum culture results and reports are reviewed computed tomography scan finding reviewed as noted previously patient remains on cephapirin antibiotics are being adjusted would recommend to continue breathing treatments deep breathing exercises incentive spirometry and follow clinical course closely 06/23/2017, patient seen and evaluated examined during the rounds, CAT scan finding reviewed with the patient, sputum cultures have been nondiagnostic, the CAT scan revealed reticular density in upper lobe suggestive of fibrosis and scarring predominantly in the right side, CAT scan revealed right upper lobe paratracheal infiltrate, patient also noted to have compression fracture of T11 vertebra, prior infiltrate noted in the right lower lobe have resolved Ms. 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 she is the steroid dependent as well as oxygen dependent for her advance emphysema and COPD patient recently has been hospitalized for pneumonia followed by acute COPD exacerbation was discharged in stable condition was doing relatively well for a day developed increasing shortness of breath with some left-sided supple coarse store chest discomfort and pain presented into the office of primary care provider has been advised to be admitted into the hospital and I was asked to evaluate this patient further patient has chronic ongoing shortness of breath and mostly dry nonproductive cough she frequently have acute severe paroxysmal episode of shortness of breath which is difficult to control and goes into coughing spells, patient does have a history of right upper lobe pulmonary nodule and severe degree of emphysema with the last CAT scan was performed somewhere around June 2016 she has been evaluated for nodule as well as abnormal CAT scan in the past at [facility] as a second opinion as well and was recommended to monitor and observe no intervention was advised Objective - Vital Signs Vital signs: Vital Signs Temp 97.1 F L 06/29/17 15:00 Pulse 101 H 06/29/17 15:00 Resp 17 06/29/17 15:00 BP 130/74 06/29/17 15:00 Pulse Ox 98 06/29/17 15:00 Intake & Output 04/0606/29/17 06/29/17 18:59 06:59 18:59 Intake Total 5260 240 Balance 1675 240 Weight 51.1 kg Intake: Oral 1675 240 Other: Voiding Method Toilet Toilet Toilet # Voids 4 2 2 - Exam - Constitutional General appearance: thin short of breath on activity like making full sentence and minimal activity like taking for 5 steps - EENT Eyes: no abnormal pupil - Neck Neck: lymphadenopathy - Respiratory Respiratory: bilateral: diminished bilaterally with some subcostal tenderness present of the left anterior lateral aspect has improved significantly, fine expiratory rhonchi are present - Cardiovascular Rhythm: regular Heart sounds: normal: S1 Abnormal Heart Sounds: no S3 Gallop - Gastrointestinal General gastrointestinal: soft, no tenderness - Neurologic Neurologic: CNII-XII intact normal neuro exam - Psychiatric Psychiatric: A&O x's 3, no appropriate affect - Labs CBC & Chem 7: 06/29/17 07:12 06/29/17 07:12 Labs: Abnormal Lab Results - Last 24 Hours (Table) 06/28/17 06/28/17 06/29/17 Range/Units 17:16 20:44 07:07 WBC (3.8-10.6) k/uL Neutrophils # (1.3-7.7) k/uL Lymphocytes # (1.0-4.8) k/uL Sodium (137-145) mmol/L Chloride (98-107) mmol/L Carbon Dioxide (22-30) mmol/L BUN (7-17) mg/dL Glucose (74-99) mg/dL POC Glucose (mg/dL) 146 H 153 H 130 H (75-99) mg/dL 06/29/17 06/29/17 06/29/17 Range/Units 07:12 07:12 12:15 WBC 12.6 H (3.8-10.6) k/uL Neutrophils # 11.4 H (1.3-7.7) k/uL Lymphocytes # 0.6 L (1.0-4.8) k/uL Sodium 136 L (137-145) mmol/L Chloride 92 L (98-107) mmol/L Carbon Dioxide 38 H (22-30) mmol/L BUN 34 H (7-17) mg/dL Glucose 128 H (74-99) mg/dL POC Glucose (mg/dL) 145 H (75-99) mg/dL Assessment and Plan Assessment: Right upper lobe pneumonia likely healthcare associated pneumonia , continue cephapime Acute exacerbation of severe COPD Acute on chronic hypoxic respirator failure Left-sided subcostal chest pain likely related to musculoskeletal pain due to coughing and breathing Chronic and generalized anxiety disorder Hypertension hypertensive cardiovascular disease Plan: Trial of CPAP 5 cm water while awake as needed and during sleep every night patient appears to be tolerating well Advised bronchoscopy for pulmonary toilet and getting good and adequate sample from lungs patient wants to hold off on that and she wants to observe the response of therapy Continue deep breathing exercises and incentive spirometry Continue IV steroids and bronchodilator in the form of nebulizer Metoprolol for history of tachycardia and hypertension to be continued lower dose Patient has been consult about smoking cessation Reviewed finding of CT angiogram with patient Arrange patient for her sputum studies as well Antibiotic adjustment Time with Patient: Greater than 30
--- NOTE | 2017-06-29 15:58 | P.PN ---
Subjective Progress Note Date: 06/29/17 Principal diagnosis: Acute exacerbation COPD, acute on chronic hypoxic respiratory failure, left- sided chest pain, chronic and generalized anxiety disorder, healthcare associated pneumonia, hypertensive cardiovascular disease, hypertension. Ms. 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 she is the steroid dependent as well as oxygen dependent for her advance emphysema and COPD patient recently has been hospitalized for pneumonia followed by acute COPD exacerbation was discharged in stable condition was doing relatively well for a day developed increasing shortness of breath with some left-sided supple coarse store chest discomfort and pain presented into the office of primary care provider has been advised to be admitted into the hospital and I was asked to evaluate this patient further patient has chronic ongoing shortness of breath and mostly dry nonproductive cough she frequently have acute severe paroxysmal episode of shortness of breath which is difficult to control and goes into coughing spells, patient does have a history of right upper lobe pulmonary nodule and severe degree of emphysema with the last CAT scan was performed somewhere around June 2016 she has been evaluated for nodule as well as abnormal CAT scan in the past at [facility] as a second opinion as well and was recommended to monitor and observe no intervention was advised 06/28/2017, patient seen eval examined during the rounds she has a trial of CPAP which she tolerated very well she used it about 4-6 hours last night she is less short of breath breathing K more comfortably able to get up but still get short of breath on activity and exertion she does have dry nonproductive cough and severe degree of dyspnea on exertion, patient expresses her desire to use the CPAP machine as needed during the day in each night during sleep, care plan discussed with the staff at length 06/29/2017 Patient seen in the room at bedside; she is awake alert and oriented; using CPAP off and on; patient is being evaluated for need for BiPAP upon discharge; antibiotics are adjusted by pulmonary; remains on IV steroids and nebulizer treatments with bronchodilator and steroid; has been recommended bronchoscopy for pulmonary toilet with has been refusing so far and wants to be observed Objective - Vital Signs Vital signs: Vital Signs Temp 97.1 F L 06/29/17 15:00 Pulse 101 H 06/29/17 15:00 Resp 17 06/29/17 15:00 BP 130/74 06/29/17 15:00 Pulse Ox 98 06/29/17 15:00 Intake & Output 06/28/17 06/29/17 06/29/17 18:59 06:59 18:59 Intake Total 1675 240 Balance 1675 240 Weight 51.1 kg Intake: Oral 1675 240 Other: Voiding Method Toilet Toilet Toilet # Voids 4 2 2 - Exam - Constitutional General appearance: thin short of breath on activity like making full sentence and minimal activity like taking for 5 steps - EENT Eyes: no abnormal pupil - Neck Neck: lymphadenopathy - Respiratory Respiratory: bilateral: diminished bilaterally with some subcostal tenderness present of the left anterior lateral aspect has improved significantly, fine expiratory rhonchi are present - Cardiovascular Rhythm: regular Heart sounds: normal: S1 Abnormal Heart Sounds: no S3 Gallop - Gastrointestinal General gastrointestinal: soft, no tenderness - Neurologic Neurologic: CNII-XII intact normal neuro exam - Psychiatric Psychiatric: A&O x's 3, no appropriate affect - Labs CBC & Chem 7: 06/29/17 07:12 06/29/17 07:12 Labs: Abnormal Lab Results - Last 24 Hours (Table) 06/28/17 06/28/17 06/29/17 Range/Units 17:16 20:44 07:07 WBC (3.8-10.6) k/uL Neutrophils # (1.3-7.7) k/uL Lymphocytes # (1.0-4.8) k/uL Sodium (137-145) mmol/L Chloride (98-107) mmol/L Carbon Dioxide (22-30) mmol/L BUN (7-17) mg/dL Glucose (74-99) mg/dL POC Glucose (mg/dL) 146 H 153 H 130 H (75-99) mg/dL 06/29/17 06/29/17 06/29/17 Range/Units 07:12 07:12 12:15 WBC 12.6 H (3.8-10.6) k/uL Neutrophils # 11.4 H (1.3-7.7) k/uL Lymphocytes # 0.6 L (1.0-4.8) k/uL Sodium 136 L (137-145) mmol/L Chloride 92 L (98-107) mmol/L Carbon Dioxide 38 H (22-30) mmol/L BUN 34 H (7-17) mg/dL Glucose 128 H (74-99) mg/dL POC Glucose (mg/dL) 145 H (75-99) mg/dL Assessment and Plan Assessment: 1. Right upper lobe pneumonia likely healthcare associated pneumonia , continue cephapime 2. Acute exacerbation of severe COPD 3. Acute on chronic hypoxic respirator failure 4. Left-sided subcostal chest pain likely related to musculoskeletal pain due to coughing and breathing 5. Chronic and generalized anxiety disorder 6. Hypertension hypertensive cardiovascular disease Plan: Trial of CPAP 5 cm water while awake as needed and during sleep every night patient appears to be tolerating well; Patient was Advised bronchoscopy for pulmonary toilet and getting good and adequate sample from lungs patient wants to hold off on that and she wants to observe the response of therapy Continue deep breathing exercises and incentive spirometry; patient remains on IV steroids and bronchodilator in the form of nebulizer; continue with Metoprolol for history of tachycardia and hypertension to be continued lower dose Time with Patient: Greater than 30 Time with Patient: Greater than 30
[2017-06-29] MEDS: SODIUM CHLORIDE 0.9% 1,000 ML IV SCH (16:53)
[2017-06-29 17:34] LABS: Glucose,Whole Blood 135 mg/dL (75-99)
[2017-06-29] MEDS: CEFDINIR 300 MG CAP PO SCH (20:42)
[2017-06-29 21:07] LABS: Glucose,Whole Blood 172 mg/dL (75-99)
[2017-06-30] MEDS: ALPRAZolam 0.25 MG TAB PO PRN ×4 (01:36→20:11)
[2017-06-30] MEDS: BUDESONIDE 1 MG/2 ML NEBU INHALATION SCH ×2 (07:10→20:01)
[2017-06-30] MEDS: IPRATROPIUM-ALBUTEROL 3 ML NEB INHALATION SCH ×4 (07:10→20:01)
[2017-06-30] MEDS: FORMOTEROL FUMARATE 20 MCG/2 ML NEBU INHALATION SCH ×2 (07:10→20:01)
[2017-06-30] MEDS: INSULIN ASPART 100 UNIT/ML 1 ML 10 ML VIAL SQ SCH ×4 (07:12→21:59)
[2017-06-30 07:16] LABS: Glucose,Whole Blood 67 mg/dL (75-99)
[2017-06-30] MEDS: NICOTINE 14MG/24HR PATCH TRANSDERM SCH (07:26)
[2017-06-30] MEDS: HEPARIN SODIUM,PORCINE 5,000 UNIT/ML 1 ML VIAL SQ SCH ×2 (07:26→20:11)
[2017-06-30] MEDS: CEFDINIR 300 MG CAP PO SCH ×2 (07:29→20:11)
[2017-06-30] MEDS: METOPROLOL TARTRATE 25 MG TAB PO SCH ×2 (07:29→20:11)
[2017-06-30] MEDS: predniSONE 20 MG TAB PO SCH (07:29)
[2017-06-30] MEDS: PANTOPRAZOLE 40 MG TABLET PO SCH (07:29)
[2017-06-30 07:31] LABS: Glucose,Whole Blood 81 mg/dL (75-99)
[2017-06-30 08:12] LABS: Anion Gap 8 mmol/L; Blood Urea Nitrogen 29 mg/dL (7-17); Calcium 9.4 mg/dL (8.4-10.2); Carbon Dioxide 36 mmol/L (22-30); Chloride 93 mmol/L (98-107); Glucose 107 mg/dL (74-99); Sodium 137 mmol/L (137-145)
[2017-06-30 08:25] LABS: Basophils % (A) 0 %; Eosinophils # (A) 0.1 k/uL (0-0.7); Eosinophils % (A) 1 %; HCT 41.3 % (34.0-46.0); HGB 14.1 gm/dL (11.4-16.0); Lymphocytes # (A) 1.5 k/uL (1.0-4.8); Lymphocytes % (A) 12 %; MCH 30.5 pg (25.0-35.0); MCHC 34.1 g/dL (31.0-37.0); MCV 89.4 fL (80.0-100.0); Mean Platelet Volume 8.6; Monocytes # (A) 0.5 k/uL (0-1.0); Monocytes % (A) 4 %; Neutrophils # (A) 9.9 k/uL (1.3-7.7); Neutrophils % (A) 82 %; RBC 4.62 m/uL (3.80-5.40); RDW 13.6 % (11.5-15.5); WBC 12.1 k/uL (3.8-10.6)
[2017-06-30 09:02] LABS: Poikilocytosis (M) Present
[2017-06-30 11:47] LABS: Glucose,Whole Blood 102 mg/dL (75-99)
[2017-06-30] MEDS: ACETAMINOPHEN TAB 325 MG TAB PO PRN (14:17)
[2017-06-30] MEDS: MAG HYDROX/AL HYDROX/SIMETH 30 ML CUP PO PRN (14:20)
[2017-06-30 16:59] LABS: Glucose,Whole Blood 106 mg/dL (75-99)
--- NOTE | 2017-06-30 17:47 | P.PN ---
Subjective Progress Note Date: 06/30/17 Principal diagnosis: Acute exacerbation COPD, acute on chronic hypoxic respiratory failure, left- sided chest pain, chronic and generalized anxiety disorder, healthcare associated pneumonia, hypertensive cardiovascular disease, hypertension. Ms. 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 she is the steroid dependent as well as oxygen dependent for her advance emphysema and COPD patient recently has been hospitalized for pneumonia followed by acute COPD exacerbation was discharged in stable condition was doing relatively well for a day developed increasing shortness of breath with some left-sided supple coarse store chest discomfort and pain presented into the office of primary care provider has been advised to be admitted into the hospital and I was asked to evaluate this patient further patient has chronic ongoing shortness of breath and mostly dry nonproductive cough she frequently have acute severe paroxysmal episode of shortness of breath which is difficult to control and goes into coughing spells, patient does have a history of right upper lobe pulmonary nodule and severe degree of emphysema with the last CAT scan was performed somewhere around June 2016 she has been evaluated for nodule as well as abnormal CAT scan in the past at [facility] as a second opinion as well and was recommended to monitor and observe no intervention was advised 06/28/2017, patient seen eval examined during the rounds she has a trial of CPAP which she tolerated very well she used it about 4-6 hours last night she is less short of breath breathing K more comfortably able to get up but still get short of breath on activity and exertion she does have dry nonproductive cough and severe degree of dyspnea on exertion, patient expresses her desire to use the CPAP machine as needed during the day in each night during sleep, care plan discussed with the staff at length 06/29/2017 Patient seen in the room at bedside; she is awake alert and oriented; using CPAP off and on; patient is being evaluated for need for BiPAP upon discharge; antibiotics are adjusted by pulmonary; remains on IV steroids and nebulizer treatments with bronchodilator and steroid; has been recommended bronchoscopy for pulmonary toilet with has been refusing so far and wants to be observed 06/30/2017; Patient remains essentially unchanged; she is still plan to be discharged on BiPAP; remains on IV steroids and nebulizer treatments and bronchodilators and steroids; pulmonary service is following and recommended bronchoscopy for pulmonary toilet; patient continues to refuse Objective - Vital Signs Vital signs: Vital Signs Temp 97.5 F L 06/30/17 14:50 Pulse 110 H 06/30/17 15:32 Resp 18 06/30/17 14:50 BP 121/69 06/30/17 14:50 Pulse Ox 97 06/30/17 14:50 Intake & Output 06/29/17 06/30/17 06/30/17 18:59 06:59 18:59 Intake Total 240 Balance 240 Intake: Oral 240 Other: Voiding Method Toilet Toilet # Voids 2 2 3 - Exam - Constitutional General appearance: thin short of breath on activity like making full sentence and minimal activity like taking for 5 steps - EENT Eyes: no abnormal pupil - Neck Neck: lymphadenopathy - Respiratory Respiratory: bilateral: diminished bilaterally with some subcostal tenderness present of the left anterior lateral aspect has improved significantly, fine expiratory rhonchi are present - Cardiovascular Rhythm: regular Heart sounds: normal: S1 Abnormal Heart Sounds: no S3 Gallop - Gastrointestinal General gastrointestinal: soft, no tenderness - Neurologic Neurologic: CNII-XII intact normal neuro exam - Psychiatric Psychiatric: A&O x's 3, no appropriate affect - Labs CBC & Chem 7: 06/30/17 07:29 06/30/17 07:29 Labs: Abnormal Lab Results - Last 24 Hours (Table) 06/29/17 06/30/17 06/30/17 Range/Units 21:05 07:05 07:29 WBC 12.1 H (3.8-10.6) k/uL Neutrophils # 9.9 H (1.3-7.7) k/uL Chloride (98-107) mmol/L Carbon Dioxide (22-30) mmol/L BUN (7-17) mg/dL Glucose (74-99) mg/dL POC Glucose (mg/dL) 172 H 67 L (75-99) mg/dL 06/30/17 06/30/17 06/30/17 Range/Units 07:29 11:23 16:55 WBC (3.8-10.6) k/uL Neutrophils # (1.3-7.7) k/uL Chloride 93 L (98-107) mmol/L Carbon Dioxide 36 H (22-30) mmol/L BUN 29 H (7-17) mg/dL Glucose 107 H (74-99) mg/dL POC Glucose (mg/dL) 102 H 106 H (75-99) mg/dL Assessment and Plan Assessment: 1. Right upper lobe pneumonia likely healthcare associated pneumonia , continue cephapime 2. Acute exacerbation of severe COPD 3. Acute on chronic hypoxic respirator failure 4. Left-sided subcostal chest pain likely related to musculoskeletal pain due to coughing and breathing 5. Chronic and generalized anxiety disorder 6. Hypertension hypertensive cardiovascular disease Plan: Trial of CPAP 5 cm water while awake as needed and during sleep every night patient appears to be tolerating well; Patient was Advised bronchoscopy for pulmonary toilet and getting good and adequate sample from lungs patient wants to hold off on that and she wants to observe the response of therapy Continue deep breathing exercises and incentive spirometry; patient remains on IV steroids and bronchodilator in the form of nebulizer; continue with Metoprolol for history of tachycardia and hypertension to be continued lower dose Time with Patient: Greater than 30
[2017-06-30 20:49] LABS: Glucose,Whole Blood 149 mg/dL (75-99)
[2017-07-01] MEDS: ALPRAZolam 0.25 MG TAB PO PRN ×4 (02:31→21:04)
[2017-07-01 07:10] LABS: Glucose,Whole Blood 84 mg/dL (75-99)
[2017-07-01] MEDS: CEFDINIR 300 MG CAP PO SCH ×2 (08:10→21:04)
[2017-07-01] MEDS: PANTOPRAZOLE 40 MG TABLET PO SCH ×2 (08:10→18:09)
[2017-07-01] MEDS: INSULIN ASPART 100 UNIT/ML 1 ML 10 ML VIAL SQ SCH ×4 (08:10→22:28)
[2017-07-01] MEDS: HEPARIN SODIUM,PORCINE 5,000 UNIT/ML 1 ML VIAL SQ SCH ×2 (08:11→21:05)
[2017-07-01] MEDS: METOPROLOL TARTRATE 25 MG TAB PO SCH ×2 (08:11→21:04)
[2017-07-01 08:12] LABS: Anion Gap 4 mmol/L; Basophils % (A) 0 %; Blood Urea Nitrogen 25 mg/dL (7-17); Calcium 8.9 mg/dL (8.4-10.2); Carbon Dioxide 39 mmol/L (22-30); Chloride 91 mmol/L (98-107); Eosinophils # (A) 0.2 k/uL (0-0.7); Eosinophils % (A) 2 %; Glucose 83 mg/dL (74-99); HCT 40.6 % (34.0-46.0); HGB 13.3 gm/dL (11.4-16.0); Lymphocytes # (A) 1.4 k/uL (1.0-4.8); Lymphocytes % (A) 12 %; MCH 29.6 pg (25.0-35.0); MCHC 32.7 g/dL (31.0-37.0); MCV 90.7 fL (80.0-100.0); Mean Platelet Volume 7.7; Monocytes # (A) 0.7 k/uL (0-1.0); Monocytes % (A) 6 %; Neutrophils # (A) 9.6 k/uL (1.3-7.7); Neutrophils % (A) 80 %; Platelet Count 179 k/uL (150-450); Potassium 4.7 mmol/L (3.5-5.1); RBC 4.48 m/uL (3.80-5.40); RDW 13.8 % (11.5-15.5); Sodium 134 mmol/L (137-145); WBC 12.1 k/uL (3.8-10.6)
[2017-07-01] MEDS: NICOTINE 14MG/24HR PATCH TRANSDERM SCH (08:12)
[2017-07-01] MEDS: predniSONE 20 MG TAB PO SCH (08:12)
--- NOTE | 2017-07-01 08:32 | P.PN ---
Subjective Progress Note Date: 07/01/17 Principal diagnosis: Continue care with exacerbation of COPD. This is a continue progress on a 62-year-old white female with long history of COPD. Multiple admissions in the last 6 weeks. She's been having difficulty with ambulation. I suspect we need to discuss discharge planning with possible palliative care element. No significant fever but there is weakness and epigastric abdominal pain. We will make sure GI prophylaxis is ascertained. She seems to be on Protonix 40 mg. I will go ahead and increase this to twice a day. Appreciate pulmonology input otherwise. Objective - Vital Signs Vital signs: Vital Signs Temp 98.5 F 07/01/17 07:00 Pulse 116 H 07/01/17 07:00 Resp 18 07/01/17 07:00 BP 122/57 07/01/17 07:00 Pulse Ox 96 07/01/17 07:00 Intake & Output 06/30/17 07/01/17 07/01/17 18:59 06:59 18:59 Other: Voiding Method Toilet # Voids 3 1 - Constitutional General appearance: Present: thin - EENT Eyes: Absent: abnormal pupil - Respiratory Respiratory: bilateral: diminished - Cardiovascular Rhythm: regular Heart sounds: normal: S1, S2 Abnormal Heart Sounds: Absent: S3 Gallop - Gastrointestinal General gastrointestinal: Present: soft. Absent: tenderness - Labs CBC & Chem 7: 07/01/17 07:20 07/01/17 07:20 Labs: Abnormal Lab Results - Last 24 Hours (Table) 06/30/17 06/30/17 06/30/17 Range/Units 07:29 11:23 16:55 WBC 12.1 H (3.8-10.6) k/uL Neutrophils # 9.9 H (1.3-7.7) k/uL Sodium (137-145) mmol/L Chloride (98-107) mmol/L Carbon Dioxide (22-30) mmol/L BUN (7-17) mg/dL POC Glucose (mg/dL) 102 H 106 H (75-99) mg/dL 06/30/17 07/01/17 07/01/17 Range/Units 20:44 07:20 07:20 WBC 12.1 H (3.8-10.6) k/uL Neutrophils # 9.6 H (1.3-7.7) k/uL Sodium 134 L (137-145) mmol/L Chloride 91 L (98-107) mmol/L Carbon Dioxide 39 H (22-30) mmol/L BUN 25 H (7-17) mg/dL POC Glucose (mg/dL) 149 H (75-99) mg/dL Assessment and Plan (1) Acute exacerbation of chronic obstructive airways disease Current Visit: No Status: Acute Code(s): J44.1 - CHRONIC OBSTRUCTIVE PULMONARY DISEASE W (ACUTE) EXACERBATION SNOMED Code(s): 936039142 (2) COPD exacerbation Current Visit: No Status: Acute Code(s): J44.1 - CHRONIC OBSTRUCTIVE PULMONARY DISEASE W (ACUTE) EXACERBATION SNOMED Code(s): 799072494707245 Plan: Continue prednisone. Increase Protonix to 40 twice a day. Check CBC and CMP in a.m. Prognosis is guarded secondary to her length of stay and lack of improvement with multiple treatments of steroids. Bronchoscopy has been discussed with the patient. Discharge planning to be instituted. See orders otherwise. Time with Patient: Greater than 30
[2017-07-01] MEDS: BUDESONIDE 1 MG/2 ML NEBU INHALATION SCH ×2 (08:40→20:36)
[2017-07-01] MEDS: IPRATROPIUM-ALBUTEROL 3 ML NEB INHALATION SCH ×4 (08:40→20:36)
[2017-07-01] MEDS: FORMOTEROL FUMARATE 20 MCG/2 ML NEBU INHALATION SCH ×2 (08:40→20:36)
[2017-07-01 12:23] LABS: Glucose,Whole Blood 130 mg/dL (75-99)
[2017-07-01] MEDS: ACETAMINOPHEN TAB 325 MG TAB PO PRN (13:30)
[2017-07-01 17:18] LABS: Glucose,Whole Blood 158 mg/dL (75-99)
--- NOTE | 2017-07-01 18:59 | P.PN ---
Subjective Progress Note Date: 07/01/17 Principal diagnosis: Acute COPD exacerbation, acute on chronic hypoxic respirator failure, left- sided supple coarse chest pain, history of lung nodules, chronic and generalized anxiety disorder, healthcare associated pneumonia, hypertension hypertensive cardiovascular disease 07/01/2017, patient seen irving examined during the rounds she has been doing fairly well with breathing treatments oral antibiotics and steroids however continued to get short of breath of severe category with activity and exertion, patient refused Placement into ECF 06/30/2017, patient seen evyessi reexamined during the rounds IV antibiotics are being switched to oral patient has a poor IV axis will monitor observe for another 24-48 hours and if remains stable possible discharge 06/29/2017, patient seen and evaluated examined the rounds clinically doing well awake and alert she has been using CPAP off and on with some relief will check an arterial blood gas to evaluate patient for a need for BiPAP at home patient remains on antibiotics breathing treatments steroids severity or shortness of breath today appears to be slightly less than before 06/28/2017, patient seen irving examined during the rounds she has a trial of CPAP which she tolerated very well she used it about 4-6 hours last night she is less short of breath breathing K more comfortably able to get up but still get short of breath on activity and exertion she does have dry nonproductive cough and severe degree of dyspnea on exertion, patient expresses her desire to use the CPAP machine as needed during the day in each night during sleep, care plan discussed with the staff at length 06/27/2017, patient seen irving reexamined during the rounds she is still very short of breath especially on minimal activity becomes very dyspneic during my evaluation she just came out of the washroom and taking 5 status because very short of breath huffing and puffing denies any chest pain I have discussed with her about bronchoscopy she continued to decline I've discussed with her option of using a CPAP as needed during the day in each night with the hope that they will improve the oxygenation and ventilation and take away some of the discomfort of the breathing difficulty she is agreeable will put patient on CPAP of 5 and monitor observe patient initially will appraise at least night during sleep and when necessary during the day while she is awake 06/26/2017, patient seen irving examined during the rounds clinically doing well awake and alert breathing comfortably but still get short of breath on activity and exertion patient has been coughing intermittently but denies any rattling also denies any significant amount of his sputum production options discussed again including bronchoscopy she wants to hold onto it as she is not ready. Laboratory data reviewed medications reviewed as well 06/25/2017, patient seen and evaluated examined during the rounds overall respiratory status not much change she is on breathing treatments steroids and antibiotics she does get short of breath have discussed with patient at length on now for bronchoscopy and pulmonary toilet she has declined she wants to monitor observe and response of the therapy in the form antibiotics breathing treatments steroids and hold off on bronchoscopy, labs reviewed medications reviewed, care plan discussed with the patient at length 06/24/2017, patient seen eval reexamined during the rounds clinically slightly better in terms of breathing was still feeling cough congested and short of breath unable to bring the sputum back the sputum culture results and reports are reviewed computed tomography scan finding reviewed as noted previously patient remains on cephapirin antibiotics are being adjusted would recommend to continue breathing treatments deep breathing exercises incentive spirometry and follow clinical course closely 06/23/2017, patient seen and evaluated examined during the rounds, CAT scan finding reviewed with the patient, sputum cultures have been nondiagnostic, the CAT scan revealed reticular density in upper lobe suggestive of fibrosis and scarring predominantly in the right side, CAT scan revealed right upper lobe paratracheal infiltrate, patient also noted to have compression fracture of T11 vertebra, prior infiltrate noted in the right lower lobe have resolved Ms. 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 she is the steroid dependent as well as oxygen dependent for her advance emphysema and COPD patient recently has been hospitalized for pneumonia followed by acute COPD exacerbation was discharged in stable condition was doing relatively well for a day developed increasing shortness of breath with some left-sided supple coarse store chest discomfort and pain presented into the office of primary care provider has been advised to be admitted into the hospital and I was asked to evaluate this patient further patient has chronic ongoing shortness of breath and mostly dry nonproductive cough she frequently have acute severe paroxysmal episode of shortness of breath which is difficult to control and goes into coughing spells, patient does have a history of right upper lobe pulmonary nodule and severe degree of emphysema with the last CAT scan was performed somewhere around June 2016 she has been evaluated for nodule as well as abnormal CAT scan in the past at [facility] as a second opinion as well and was recommended to monitor and observe no intervention was advised Objective - Vital Signs Vital signs: Vital Signs Temp 98.6 F 07/01/17 18:27 Pulse 92 07/01/17 16:49 Resp 18 07/01/17 14:33 BP 112/73 07/01/17 14:33 Pulse Ox 95 07/01/17 14:33 Intake & Output 06/30/17 07/01/17 07/01/17 18:59 06:59 18:59 Intake Total 440 Balance 440 Intake: Oral 440 Other: Voiding Method Toilet # Voids 3 1 2 # Bowel Movements 0 - Exam - Constitutional General appearance: thin short of breath on activity like making full sentence and minimal activity like taking for 5 steps - EENT Eyes: no abnormal pupil - Neck Neck: lymphadenopathy - Respiratory Respiratory: bilateral: diminished bilaterally with some subcostal tenderness present of the left anterior lateral aspect has improved significantly, fine expiratory rhonchi are present - Cardiovascular Rhythm: regular Heart sounds: normal: S1 Abnormal Heart Sounds: no S3 Gallop - Gastrointestinal General gastrointestinal: soft, no tenderness - Neurologic Neurologic: CNII-XII intact normal neuro exam - Psychiatric Psychiatric: A&O x's 3, no appropriate affect - Labs CBC & Chem 7: 07/01/17 07:20 07/01/17 07:20 Labs: Abnormal Lab Results - Last 24 Hours (Table) 06/30/17 07/01/17 07/01/17 Range/Units 20:44 07:20 07:20 WBC 12.1 H (3.8-10.6) k/uL Neutrophils # 9.6 H (1.3-7.7) k/uL Sodium 134 L (137-145) mmol/L Chloride 91 L (98-107) mmol/L Carbon Dioxide 39 H (22-30) mmol/L BUN 25 H (7-17) mg/dL POC Glucose (mg/dL) 149 H (75-99) mg/dL 07/01/17 07/01/17 Range/Units 12:13 17:14 WBC (3.8-10.6) k/uL Neutrophils # (1.3-7.7) k/uL Sodium (137-145) mmol/L Chloride (98-107) mmol/L Carbon Dioxide (22-30) mmol/L BUN (7-17) mg/dL POC Glucose (mg/dL) 130 H 158 H (75-99) mg/dL Assessment and Plan Assessment: Right upper lobe pneumonia likely healthcare associated pneumonia , continue oral antibiotics and monitor observe patient on that Acute exacerbation of severe COPD Acute on chronic hypoxic respirator failure Left-sided subcostal chest pain likely related to musculoskeletal pain due to coughing and breathing Chronic and generalized anxiety disorder Hypertension hypertensive cardiovascular disease Plan: Trial of CPAP 5 cm water while awake as needed and during sleep every night patient appears to be tolerating well Advised bronchoscopy for pulmonary toilet and getting good and adequate sample from lungs patient wants to hold off on that and she wants to observe the response of therapy Continue deep breathing exercises and incentive spirometry Continue oral steroids and bronchodilator in the form of nebulizer Metoprolol for history of tachycardia and hypertension to be continued lower dose Patient has been educated about smoking cessation Reviewed finding of CT angiogram with patient Antibiotic adjustment Time with Patient: Greater than 30
[2017-07-01 20:50] LABS: Glucose,Whole Blood 135 mg/dL (75-99)
[2017-07-02] MEDS: ALPRAZolam 0.25 MG TAB PO PRN ×4 (02:43→21:01)
[2017-07-02] MEDS: IPRATROPIUM-ALBUTEROL 3 ML NEB INHALATION SCH ×4 (06:27→19:00)
[2017-07-02] MEDS: BUDESONIDE 1 MG/2 ML NEBU INHALATION SCH ×2 (07:17→19:00)
[2017-07-02] MEDS: FORMOTEROL FUMARATE 20 MCG/2 ML NEBU INHALATION SCH ×2 (07:17→19:00)
[2017-07-02 07:37] LABS: Glucose,Whole Blood 118 mg/dL (75-99)
[2017-07-02] MEDS: INSULIN ASPART 100 UNIT/ML 1 ML 10 ML VIAL SQ SCH ×4 (08:05→21:05)
[2017-07-02] MEDS: PANTOPRAZOLE 40 MG TABLET PO SCH ×2 (08:08→17:56)
[2017-07-02] MEDS: CEFDINIR 300 MG CAP PO SCH ×2 (08:08→21:01)
[2017-07-02] MEDS: predniSONE 20 MG TAB PO SCH (08:09)
[2017-07-02] MEDS: HEPARIN SODIUM,PORCINE 5,000 UNIT/ML 1 ML VIAL SQ SCH ×2 (08:09→21:01)
[2017-07-02] MEDS: METOPROLOL TARTRATE 25 MG TAB PO SCH ×2 (08:09→21:02)
[2017-07-02] MEDS: NICOTINE 14MG/24HR PATCH TRANSDERM SCH (08:11)
[2017-07-02 08:52] LABS: HCT 41.1 % (34.0-46.0); HGB 13.1 gm/dL (11.4-16.0); MCH 29.1 pg (25.0-35.0); MCHC 31.9 g/dL (31.0-37.0); MCV 91.4 fL (80.0-100.0); Mean Platelet Volume 7.5; Platelet Count 184 k/uL (150-450); RBC 4.49 m/uL (3.80-5.40); RDW 13.8 % (11.5-15.5); WBC 13.4 k/uL (3.8-10.6)
[2017-07-02 09:17] LABS: ALT 37 U/L (9-52); AST 15 U/L (14-36); Albumin 3.2 g/dL (3.5-5.0); Alkaline Phosphatase 62 U/L (38-126); Anion Gap 8 mmol/L; Blood Urea Nitrogen 26 mg/dL (7-17); Calcium 9.1 mg/dL (8.4-10.2); Carbon Dioxide 38 mmol/L (22-30); Chloride 90 mmol/L (98-107); Glucose 88 mg/dL (74-99); Potassium 4.6 mmol/L (3.5-5.1); Sodium 136 mmol/L (137-145); Total Bilirubin 0.4 mg/dL (0.2-1.3); Total Protein 5.6 g/dL (6.3-8.2)
[2017-07-02 11:55] LABS: Glucose,Whole Blood 148 mg/dL (75-99)
--- NOTE | 2017-07-02 13:07 | P.PN ---
Subjective Principal diagnosis: Continue care with exacerbation of COPD. This is a continue progress on a 62-year-old white female with long history of COPD. Multiple admissions in the last 6 weeks. She's been having difficulty with ambulation. I suspect we need to discuss discharge planning with possible palliative care element. No significant fever but there is weakness and epigastric abdominal pain. We will make sure GI prophylaxis is ascertained. She seems to be on Protonix 40 mg. I will go ahead and increase this to twice a day. Appreciate pulmonology input otherwise. This morning, the patient is now on BiPAP. However, the patient does not state that she is significantly improved. Again, I do worry that she will need ECF/ group home placement. Objective - Vital Signs Vital signs: Vital Signs Temp 97.5 F L 07/02/17 07:00 Pulse 100 07/02/17 11:16 Resp 16 07/02/17 07:17 BP 145/62 07/02/17 07:00 Pulse Ox 100 07/02/17 07:00 Intake & Output 07/01/17 07/02/17 07/02/17 18:59 06:59 18:59 Intake Total 440 Balance 440 Intake: Oral 440 Other: Voiding Method Toilet # Voids 2 1 # Bowel Movements 0 - Constitutional General appearance: Present: thin - EENT Eyes: Absent: abnormal pupil - Neck Neck: Absent: lymphadenopathy - Respiratory Respiratory: bilateral: diminished - Cardiovascular Rhythm: regular Heart sounds: normal: S1, S2 - Labs CBC & Chem 7: 07/02/17 08:05 07/02/17 08:05 Labs: Abnormal Lab Results - Last 24 Hours (Table) 07/01/17 07/01/17 07/02/17 Range/Units 17:14 20:48 07:17 WBC (3.8-10.6) k/uL Sodium (137-145) mmol/L Chloride (98-107) mmol/L Carbon Dioxide (22-30) mmol/L BUN (7-17) mg/dL POC Glucose (mg/dL) 158 H 135 H 118 H (75-99) mg/dL Total Protein (6.3-8.2) g/dL Albumin (3.5-5.0) g/dL 07/02/17 07/02/17 07/02/17 Range/Units 08:05 08:05 11:43 WBC 13.4 H (3.8-10.6) k/uL Sodium 136 L (137-145) mmol/L Chloride 90 L (98-107) mmol/L Carbon Dioxide 38 H (22-30) mmol/L BUN 26 H (7-17) mg/dL POC Glucose (mg/dL) 148 H (75-99) mg/dL Total Protein 5.6 L (6.3-8.2) g/dL Albumin 3.2 L (3.5-5.0) g/dL Assessment and Plan (1) Acute exacerbation of chronic obstructive airways disease Current Visit: No Status: Acute Code(s): J44.1 - CHRONIC OBSTRUCTIVE PULMONARY DISEASE W (ACUTE) EXACERBATION SNOMED Code(s): 054927022 (2) COPD exacerbation Current Visit: No Status: Acute Code(s): J44.1 - CHRONIC OBSTRUCTIVE PULMONARY DISEASE W (ACUTE) EXACERBATION SNOMED Code(s): 642627152329976 (3) Debility Current Visit: Yes Status: Acute Code(s): R53.81 - OTHER MALAISE SNOMED Code(s): 64117079 Plan: Current regimen of treatment will be continued. Check CBC and see me in a.m. Again, I suspect BiPAP with ECF placement in the near future. Prognosis is guarded.
--- NOTE | 2017-07-02 13:20 | P.PN ---
Subjective Progress Note Date: 07/02/17 Principal diagnosis: Acute COPD exacerbation, acute on chronic hypoxic respirator failure, left- sided supple coarse chest pain, history of lung nodules, chronic and generalized anxiety disorder, healthcare associated pneumonia, hypertension hypertensive cardiovascular disease 07/02/2017, patient seen maria estheral and evaluated examined during the rounds still short of breath on activity and exertion have discussed with RN in detail about doing an arterial blood gas patient has been reluctant so far but now is more agreeable lately she continued to complain of shortness breath on activity and exertion at rest however she appears somewhat comfortable 07/01/2017, patient seen irving examined during the rounds she has been doing fairly well with breathing treatments oral antibiotics and steroids however continued to get short of breath of severe category with activity and exertion, patient refused Placement into ECF 06/30/2017, patient seen irving reexamined during the rounds IV antibiotics are being switched to oral patient has a poor IV axis will monitor observe for another 24-48 hours and if remains stable possible discharge 06/29/2017, patient seen and evaluated examined the rounds clinically doing well awake and alert she has been using CPAP off and on with some relief will check an arterial blood gas to evaluate patient for a need for BiPAP at home patient remains on antibiotics breathing treatments steroids severity or shortness of breath today appears to be slightly less than before 06/28/2017, patient seen irving examined during the rounds she has a trial of CPAP which she tolerated very well she used it about 4-6 hours last night she is less short of breath breathing K more comfortably able to get up but still get short of breath on activity and exertion she does have dry nonproductive cough and severe degree of dyspnea on exertion, patient expresses her desire to use the CPAP machine as needed during the day in each night during sleep, care plan discussed with the staff at length 06/27/2017, patient seen irving reexamined during the rounds she is still very short of breath especially on minimal activity becomes very dyspneic during my evaluation she just came out of the washroom and taking 5 status because very short of breath huffing and puffing denies any chest pain I have discussed with her about bronchoscopy she continued to decline I've discussed with her option of using a CPAP as needed during the day in each night with the hope that they will improve the oxygenation and ventilation and take away some of the discomfort of the breathing difficulty she is agreeable will put patient on CPAP of 5 and monitor observe patient initially will appraise at least night during sleep and when necessary during the day while she is awake 06/26/2017, patient seen irving examined during the rounds clinically doing well awake and alert breathing comfortably but still get short of breath on activity and exertion patient has been coughing intermittently but denies any rattling also denies any significant amount of his sputum production options discussed again including bronchoscopy she wants to hold onto it as she is not ready. Laboratory data reviewed medications reviewed as well 06/25/2017, patient seen and evaluated examined during the rounds overall respiratory status not much change she is on breathing treatments steroids and antibiotics she does get short of breath have discussed with patient at length on now for bronchoscopy and pulmonary toilet she has declined she wants to monitor observe and response of the therapy in the form antibiotics breathing treatments steroids and hold off on bronchoscopy, labs reviewed medications reviewed, care plan discussed with the patient at length 06/24/2017, patient seen irving reexamined during the rounds clinically slightly better in terms of breathing was still feeling cough congested and short of breath unable to bring the sputum back the sputum culture results and reports are reviewed computed tomography scan finding reviewed as noted previously patient remains on cephapirin antibiotics are being adjusted would recommend to continue breathing treatments deep breathing exercises incentive spirometry and follow clinical course closely 06/23/2017, patient seen and evaluated examined during the rounds, CAT scan finding reviewed with the patient, sputum cultures have been nondiagnostic, the CAT scan revealed reticular density in upper lobe suggestive of fibrosis and scarring predominantly in the right side, CAT scan revealed right upper lobe paratracheal infiltrate, patient also noted to have compression fracture of T11 vertebra, prior infiltrate noted in the right lower lobe have resolved Ms. 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 she is the steroid dependent as well as oxygen dependent for her advance emphysema and COPD patient recently has been hospitalized for pneumonia followed by acute COPD exacerbation was discharged in stable condition was doing relatively well for a day developed increasing shortness of breath with some left-sided supple coarse store chest discomfort and pain presented into the office of primary care provider has been advised to be admitted into the hospital and I was asked to evaluate this patient further patient has chronic ongoing shortness of breath and mostly dry nonproductive cough she frequently have acute severe paroxysmal episode of shortness of breath which is difficult to control and goes into coughing spells, patient does have a history of right upper lobe pulmonary nodule and severe degree of emphysema with the last CAT scan was performed somewhere around June 2016 she has been evaluated for nodule as well as abnormal CAT scan in the past at [facility] as a second opinion as well and was recommended to monitor and observe no intervention was advised Objective - Vital Signs Vital signs: Vital Signs Temp 97.5 F L 07/02/17 07:00 Pulse 100 07/02/17 11:16 Resp 16 07/02/17 07:17 BP 145/62 07/02/17 07:00 Pulse Ox 100 07/02/17 07:00 Intake & Output 07/01/17 07/02/17 07/02/17 18:59 06:59 18:59 Intake Total 440 Balance 440 Intake: Oral 440 Other: Voiding Method Toilet # Voids 2 1 # Bowel Movements 0 - Exam - Constitutional General appearance: thin short of breath on activity like making full sentence and minimal activity like taking for 5 steps - EENT Eyes: no abnormal pupil - Neck Neck: lymphadenopathy - Respiratory Respiratory: bilateral: diminished bilaterally with some subcostal tenderness present of the left anterior lateral aspect has improved significantly, fine expiratory rhonchi are present - Cardiovascular Rhythm: regular Heart sounds: normal: S1 Abnormal Heart Sounds: no S3 Gallop - Gastrointestinal General gastrointestinal: soft, no tenderness - Neurologic Neurologic: CNII-XII intact normal neuro exam - Psychiatric Psychiatric: A&O x's 3, no appropriate affect - Labs CBC & Chem 7: 07/02/17 08:05 07/02/17 08:05 Labs: Abnormal Lab Results - Last 24 Hours (Table) 07/01/17 07/01/17 07/02/17 Range/Units 17:14 20:48 07:17 WBC (3.8-10.6) k/uL Sodium (137-145) mmol/L Chloride (98-107) mmol/L Carbon Dioxide (22-30) mmol/L BUN (7-17) mg/dL POC Glucose (mg/dL) 158 H 135 H 118 H (75-99) mg/dL Total Protein (6.3-8.2) g/dL Albumin (3.5-5.0) g/dL 07/02/17 07/02/17 07/02/17 Range/Units 08:05 08:05 11:43 WBC 13.4 H (3.8-10.6) k/uL Sodium 136 L (137-145) mmol/L Chloride 90 L (98-107) mmol/L Carbon Dioxide 38 H (22-30) mmol/L BUN 26 H (7-17) mg/dL POC Glucose (mg/dL) 148 H (75-99) mg/dL Total Protein 5.6 L (6.3-8.2) g/dL Albumin 3.2 L (3.5-5.0) g/dL Assessment and Plan Assessment: Right upper lobe pneumonia likely healthcare associated pneumonia , continue oral antibiotics and monitor observe patient on that Acute exacerbation of severe COPD Acute on chronic hypoxic respirator failure Left-sided subcostal chest pain likely related to musculoskeletal pain due to coughing and breathing Chronic and generalized anxiety disorder Hypertension hypertensive cardiovascular disease Plan: Trial of CPAP 5 cm water while awake as needed and during sleep every night patient appears to be tolerating well Evaluated for hypercapnia and hypoxic respirator failure best the case patient could be approved for home BiPAP therapy will follow, and arterial blood gas has been ordered Advised bronchoscopy for pulmonary toilet and getting good and adequate sample from lungs patient wants to hold off on that and she wants to observe the response of therapy Continue deep breathing exercises and incentive spirometry Continue oral steroids and bronchodilator in the form of nebulizer Metoprolol for history of tachycardia and hypertension to be continued lower dose Patient has been educated about smoking cessation Reviewed finding of CT angiogram with patient Antibiotic adjustment Time with Patient: Greater than 30
[2017-07-02 15:38] LABS: ABG Base Excess 9.6 mmol/L; ABG HCO3 33 mmol/L (21-25); ABG Oxygen Saturation 97.7 % (94-97); ABG PCO2 46 mmHg (35-45); ABG PH 7.47 (7.35-7.45); ABG PO2 88 mmHg (83-108); ABG TCO2 35 mmol/L (19-24)
[2017-07-02 17:25] LABS: Glucose,Whole Blood 203 mg/dL (75-99)
[2017-07-02] MEDS ORDERED: CHLORPHEN-HYDROcod 8-10mg/5ml 5 ML ORAL.SYRG PO SCH (20:00)
[2017-07-02 21:00] LABS: Glucose,Whole Blood 162 mg/dL (75-99)
[2017-07-02] MEDS: CHLORPHEN-HYDROcod 8-10mg/5ml 5 ML ORAL.SYRG PO PRN (21:10)
[2017-07-03] MEDS: ALPRAZolam 0.25 MG TAB PO PRN ×3 (05:01→21:42)
[2017-07-03] MEDS: IPRATROPIUM-ALBUTEROL 3 ML NEB INHALATION SCH ×4 (06:48→19:20)
[2017-07-03] MEDS: FORMOTEROL FUMARATE 20 MCG/2 ML NEBU INHALATION SCH ×2 (06:48→19:20)
[2017-07-03] MEDS: BUDESONIDE 1 MG/2 ML NEBU INHALATION SCH ×2 (06:49→19:20)
[2017-07-03 07:17] LABS: Glucose,Whole Blood 174 mg/dL (75-99)
[2017-07-03] MEDS: INSULIN ASPART 100 UNIT/ML 1 ML 10 ML VIAL SQ SCH ×4 (07:18→21:23)
[2017-07-03] MEDS: PANTOPRAZOLE 40 MG TABLET PO SCH ×2 (08:47→17:02)
[2017-07-03] MEDS: HEPARIN SODIUM,PORCINE 5,000 UNIT/ML 1 ML VIAL SQ SCH ×2 (08:47→21:23)
[2017-07-03] MEDS: CEFDINIR 300 MG CAP PO SCH ×2 (08:47→21:42)
[2017-07-03] MEDS: NICOTINE 14MG/24HR PATCH TRANSDERM SCH (08:48)
[2017-07-03] MEDS: predniSONE 20 MG TAB PO SCH (08:48)
[2017-07-03] MEDS: METOPROLOL TARTRATE 25 MG TAB PO SCH ×2 (08:48→21:42)
--- NOTE | 2017-07-03 11:44 | P.PN ---
Subjective Progress Note Date: 07/03/17 Principal diagnosis: Acute COPD exacerbation, acute on chronic hypoxic respirator failure, left- sided supple coarse chest pain, history of lung nodules, chronic and generalized anxiety disorder, healthcare associated pneumonia, hypertension hypertensive cardiovascular disease 07/03/2017, patient seen and evaluated examined during the rounds she is awake and alert breathing comfortably at rest I will get short of breath on activity and exertion she had the tests and x-rays and Xanax last night able to sleep fairly well, I have reviewed her arterial blood gases her CO2 is mildly elevated however she will require likely a sleep study on outpatient basis for now she can use a loaner CPAP machine. I've discussed with the patient at length about procedure bronchoscopy for pulmonary toilet patient feels she is slightly congested but does not have significant amount of sputum production I reviewed findings of x-ray with her also discussed with her about the procedure bronchoscopy and pulmonary toilet and mentioned about small risk of respirator failure and going on respirator patient declined a bronchoscopy and pulmonary toilet for now she would like to continue current conservative therapy with breathing treatment antibiotics and steroids and CPAP machine if it can be arranged as a loaner for now. I return a prescription for the Omnicef 300 twice a day as well as the tapering prednisone. Patient is on home maintenance prednisone as well at his advised patient to continue maintenance home prednisone dose once she finished her tapering prednisone, will reevaluate patient in outpatient setting for 07/02/2017, patient seen eval and evaluated examined during the rounds still short of breath on activity and exertion have discussed with RN in detail about doing an arterial blood gas patient has been reluctant so far but now is more agreeable lately she continued to complain of shortness breath on activity and exertion at rest however she appears somewhat comfortable 07/01/2017, patient seen eval examined during the rounds she has been doing fairly well with breathing treatments oral antibiotics and steroids however continued to get short of breath of severe category with activity and exertion, patient refused Placement into ECF 06/30/2017, patient seen eval reexamined during the rounds IV antibiotics are being switched to oral patient has a poor IV axis will monitor observe for another 24-48 hours and if remains stable possible discharge 06/29/2017, patient seen and evaluated examined the rounds clinically doing well awake and alert she has been using CPAP off and on with some relief will check an arterial blood gas to evaluate patient for a need for BiPAP at home patient remains on antibiotics breathing treatments steroids severity or shortness of breath today appears to be slightly less than before 06/28/2017, patient seen irving examined during the rounds she has a trial of CPAP which she tolerated very well she used it about 4-6 hours last night she is less short of breath breathing K more comfortably able to get up but still get short of breath on activity and exertion she does have dry nonproductive cough and severe degree of dyspnea on exertion, patient expresses her desire to use the CPAP machine as needed during the day in each night during sleep, care plan discussed with the staff at length 06/27/2017, patient seen irving reexamined during the rounds she is still very short of breath especially on minimal activity becomes very dyspneic during my evaluation she just came out of the washroom and taking 5 status because very short of breath huffing and puffing denies any chest pain I have discussed with her about bronchoscopy she continued to decline I've discussed with her option of using a CPAP as needed during the day in each night with the hope that they will improve the oxygenation and ventilation and take away some of the discomfort of the breathing difficulty she is agreeable will put patient on CPAP of 5 and monitor observe patient initially will appraise at least night during sleep and when necessary during the day while she is awake 06/26/2017, patient seen irving examined during the rounds clinically doing well awake and alert breathing comfortably but still get short of breath on activity and exertion patient has been coughing intermittently but denies any rattling also denies any significant amount of his sputum production options discussed again including bronchoscopy she wants to hold onto it as she is not ready. Laboratory data reviewed medications reviewed as well 06/25/2017, patient seen and evaluated examined during the rounds overall respiratory status not much change she is on breathing treatments steroids and antibiotics she does get short of breath have discussed with patient at length on now for bronchoscopy and pulmonary toilet she has declined she wants to monitor observe and response of the therapy in the form antibiotics breathing treatments steroids and hold off on bronchoscopy, labs reviewed medications reviewed, care plan discussed with the patient at length 06/24/2017, patient seen irving reexamined during the rounds clinically slightly better in terms of breathing was still feeling cough congested and short of breath unable to bring the sputum back the sputum culture results and reports are reviewed computed tomography scan finding reviewed as noted previously patient remains on cephapirin antibiotics are being adjusted would recommend to continue breathing treatments deep breathing exercises incentive spirometry and follow clinical course closely 06/23/2017, patient seen and evaluated examined during the rounds, CAT scan finding reviewed with the patient, sputum cultures have been nondiagnostic, the CAT scan revealed reticular density in upper lobe suggestive of fibrosis and scarring predominantly in the right side, CAT scan revealed right upper lobe paratracheal infiltrate, patient also noted to have compression fracture of T11 vertebra, prior infiltrate noted in the right lower lobe have resolved Ms. 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 she is the steroid dependent as well as oxygen dependent for her advance emphysema and COPD patient recently has been hospitalized for pneumonia followed by acute COPD exacerbation was discharged in stable condition was doing relatively well for a day developed increasing shortness of breath with some left-sided supple coarse store chest discomfort and pain presented into the office of primary care provider has been advised to be admitted into the hospital and I was asked to evaluate this patient further patient has chronic ongoing shortness of breath and mostly dry nonproductive cough she frequently have acute severe paroxysmal episode of shortness of breath which is difficult to control and goes into coughing spells, patient does have a history of right upper lobe pulmonary nodule and severe degree of emphysema with the last CAT scan was performed somewhere around June 2016 she has been evaluated for nodule as well as abnormal CAT scan in the past at [facility] as a second opinion as well and was recommended to monitor and observe no intervention was advised Objective - Vital Signs Vital signs: Vital Signs Temp 98.1 F 07/03/17 06:24 Pulse 104 H 07/03/17 11:38 Resp 18 07/03/17 06:24 BP 104/67 07/03/17 06:24 Pulse Ox 96 07/03/17 06:52 Intake & Output 07/02/17 07/03/17 07/03/17 18:59 06:59 18:59 Other: Voiding Method Toilet # Voids 3 2 # Bowel Movements 0 - Exam - Constitutional General appearance: thin short of breath on activity like making full sentence and minimal activity like taking for 5 steps - EENT Eyes: no abnormal pupil - Neck Neck: lymphadenopathy - Respiratory Respiratory: bilateral: diminished bilaterally with some subcostal tenderness present of the left anterior lateral aspect has improved significantly, fine expiratory rhonchi are present - Cardiovascular Rhythm: regular Heart sounds: normal: S1 Abnormal Heart Sounds: no S3 Gallop - Gastrointestinal General gastrointestinal: soft, no tenderness - Neurologic Neurologic: CNII-XII intact normal neuro exam - Psychiatric Psychiatric: A&O x's 3, no appropriate affect - Labs CBC & Chem 7: 07/02/17 08:05 07/02/17 08:05 Labs: Abnormal Lab Results - Last 24 Hours (Table) 07/02/17 07/02/17 07/02/17 Range/Units 11:43 15:36 17:20 ABG pH 7.47 H (7.35-7.45) ABG pCO2 46 H (35-45) mmHg ABG HCO3 33 H (21-25) mmol/L ABG Total CO2 35 H (19-24) mmol/L ABG O2 Saturation 97.7 H (94-97) % POC Glucose (mg/dL) 148 H 203 H (75-99) mg/dL 07/02/17 07/03/17 Range/Units 20:53 07:09 ABG pH (7.35-7.45) ABG pCO2 (35-45) mmHg ABG HCO3 (21-25) mmol/L ABG Total CO2 (19-24) mmol/L ABG O2 Saturation (94-97) % POC Glucose (mg/dL) 162 H 174 H (75-99) mg/dL Assessment and Plan Assessment: Right upper lobe pneumonia likely healthcare associated pneumonia , continue oral antibiotics and monitor observe patient on that Acute exacerbation of severe COPD Acute on chronic hypoxic respirator failure Left-sided subcostal chest pain likely related to musculoskeletal pain due to coughing and breathing Chronic and generalized anxiety disorder Hypertension hypertensive cardiovascular disease Plan: Trial of CPAP 5 cm water while awake as needed and during sleep every night patient appears to be tolerating well, arterial blood gases results reviewed consider CPAP as a loner if it can be arranged Evaluated for hypercapnia and hypoxic respirator failure best the case patient could be approved for home BiPAP therapy will follow, and arterial blood gas has been ordered Advised bronchoscopy for pulmonary toilet and getting good and adequate sample from lungs patient wants to hold off on that and she wants to observe the response of therapy Continue deep breathing exercises and incentive spirometry Continue oral steroids and bronchodilator in the form of nebulizer Metoprolol for history of tachycardia and hypertension to be continued lower dose Patient has been educated about smoking cessation Reviewed finding of CT angiogram with patient Antibiotic adjustment Can be discharged home from pulmonary standpoint with follow-up in outpatient setting Time with Patient: Greater than 30
[2017-07-03 12:39] LABS: Glucose,Whole Blood 112 mg/dL (75-99)
[2017-07-03 17:32] LABS: Glucose,Whole Blood 157 mg/dL (75-99)
[2017-07-03] MEDS: CHLORPHEN-HYDROcod 8-10mg/5ml 5 ML ORAL.SYRG PO PRN (18:58)
[2017-07-03 21:13] LABS: Glucose,Whole Blood 174 mg/dL (75-99)
--- NOTE | 2017-07-03 23:24 | P.PN ---
Subjective Principal diagnosis: Continue care with exacerbation of COPD. This is a continue progress on a 62-year-old white female with long history of COPD. Multiple admissions in the last 6 weeks. She's been having difficulty with ambulation. I suspect we need to discuss discharge planning with possible palliative care element. No significant fever but there is weakness and epigastric abdominal pain. We will make sure GI prophylaxis is ascertained. She seems to be on Protonix 40 mg. I will go ahead and increase this to twice a day. Appreciate pulmonology input otherwise. This morning, the patient is now on BiPAP. However, the patient does not state that she is significantly improved. Again, I do worry that she will need ECF/ half-way placement. Objective - Vital Signs Vital signs: Vital Signs Temp 97.6 F 07/03/17 22:47 Pulse 79 07/03/17 22:47 Resp 16 07/03/17 22:47 BP 129/79 07/03/17 22:47 Pulse Ox 99 07/03/17 22:47 Intake & Output 07/03/17 07/03/17 07/04/17 06:59 18:59 06:59 Weight 51.1 kg Other: Voiding Method Toilet # Voids 2 3 0 - Constitutional General appearance: Present: thin - EENT Eyes: Absent: abnormal pupil - Respiratory Respiratory: bilateral: diminished - Cardiovascular Rhythm: regular Abnormal Heart Sounds: Absent: S3 Gallop - Gastrointestinal General gastrointestinal: Present: soft. Absent: tenderness - Musculoskeletal Musculoskeletal: Present: generalized weakness - Psychiatric Psychiatric: Present: A&O x's 3 - Labs CBC & Chem 7: 07/02/17 08:05 07/02/17 08:05 Labs: Abnormal Lab Results - Last 24 Hours (Table) 07/03/17 07/03/17 07/03/17 Range/Units 07:09 12:25 17:21 POC Glucose (mg/dL) 174 H 112 H 157 H (75-99) mg/dL 07/03/17 Range/Units 21:11 POC Glucose (mg/dL) 174 H (75-99) mg/dL Assessment and Plan (1) Acute exacerbation of chronic obstructive airways disease Current Visit: No Status: Acute Code(s): J44.1 - CHRONIC OBSTRUCTIVE PULMONARY DISEASE W (ACUTE) EXACERBATION SNOMED Code(s): 143667125 (2) COPD exacerbation Current Visit: No Status: Acute Code(s): J44.1 - CHRONIC OBSTRUCTIVE PULMONARY DISEASE W (ACUTE) EXACERBATION SNOMED Code(s): 658605499647476 (3) Debility Current Visit: Yes Status: Acute Code(s): R53.81 - OTHER MALAISE SNOMED Code(s): 37327465 Plan: Unfortunately, she seems to have significant improvement even after 10-12 days of hospitalization back to a baseline I feel is functional for her to live independently. New preop we will go ahead and anticipate transfer to [facility] in the next 24-48 hours. See orders otherwise. Time with Patient: Greater than 30
[2017-07-04] MEDS: ALPRAZolam 0.25 MG TAB PO PRN ×3 (04:34→21:25)
[2017-07-04] MEDS: BUDESONIDE 1 MG/2 ML NEBU INHALATION SCH ×2 (06:53→19:28)
[2017-07-04] MEDS: FORMOTEROL FUMARATE 20 MCG/2 ML NEBU INHALATION SCH ×2 (06:53→19:28)
[2017-07-04] MEDS: IPRATROPIUM-ALBUTEROL 3 ML NEB INHALATION SCH ×4 (06:53→19:28)
[2017-07-04 07:19] LABS: Glucose,Whole Blood 93 mg/dL (75-99)
[2017-07-04] MEDS: NICOTINE 14MG/24HR PATCH TRANSDERM SCH (07:35)
--- NOTE | 2017-07-04 07:56 | P.DS ---
Providers Date of admission: 06/20/17 16:20 Attending physician: Kurtis Piña Consults: 06/20/17 18:06 Consult Physician Routine Consulting Provider: Cayden Huang Consult Reason/Comments: COPD Do you want consulting provider notified?: Yes Primary care physician: Kurtis Piña - Discharge Diagnosis(es) (1) Acute exacerbation of chronic obstructive airways disease Current Visit: No Status: Acute (2) COPD exacerbation Current Visit: No Status: Acute (3) Debility Current Visit: Yes Status: Acute Hospital Course: This is a discharge/transfer summary a 62-year-old white female with end-stage COPD element. She's been admitted 3-4 times in the last 6 weeks with exacerbations. She is now oxygen dependent and has benefited slightly from significant BiPAP. Because of her generalized weakness, she is agreeable to transfer to [facility] for significant rehab. Pulmonary rehab also should be instituted. Medicines are reconciled and she will be transferred one bed is available. Prognosis is somewhat guarded secondary to multiple comorbidities end-stage COPD. However, I do hope that she can recover enough to be independent as she has been for the last 40+ years. Patient Condition at Discharge: Fair Plan - Discharge Summary Discharge Rx Participant: Yes New Discharge Prescriptions: New Cefdinir [Omnicef] 300 mg PO BID #14 cap CHLORPHEN-HYDROcod 8-10mg/5ml [Tussionex] 5 ml PO Q12H PRN #100 ml PRN Reason: Cough Ibuprofen [Motrin] 400 mg PO Q6HR PRN tab PRN Reason: Mild Pain Or Fever > 100.5 Mag Hydrox/Al Hydrox/Simeth [Maalox] 15 ml PO Q6HR PRN cup PRN Reason: Indigestion Nicotine 14Mg/24Hr Patch [Habitrol] 1 patch TRANSDERM DAILY #30 patch predniSONE 40 mg PO DAILY tab Continue Tiotropium [place] [Spiriva Respimat] 2 cap INHALATION RT-DAILY Budesonide [Pulmicort] 0.5 mg INHALATION RT-BID nebu Arformoterol Tartrate [Brovana] 15 mcg INHALATION RT-BID Albuterol Inhaler [Ventolin Hfa Inhaler] 2 puff INHALATION RT-QID PRN PRN Reason: Shortness Of Breath Metoprolol Tartrate 12.5 mg PO BID methylPREDNISolone Dose Pack [Medrol Dose Pack] 4 mg PO DIRECTED #21 package Pantoprazole [Protonix] 40 mg PO AC-BRKFST #30 tablet. Ipratropium-Albuterol Nebulize [Duoneb 0.5 mg-3 mg/3 ml Soln] 3 ml INHALATION RT-QID ALPRAZolam [Xanax] 0.25 mg PO QID #120 tablet Discontinued predniSONE 5 mg PO DAILY Discharge Medication List Tiotropium [place] [Spiriva Respimat] 2 cap INHALATION RT-DAILY 12/11/14 [ History] Budesonide [Pulmicort] 0.5 mg INHALATION RT-BID nebu 12/17/14 [Rx] Arformoterol Tartrate [Brovana] 15 mcg INHALATION RT-BID 04/14/15 [History] Albuterol Inhaler [Ventolin Hfa Inhaler] 2 puff INHALATION RT-QID PRN 09/03/16 [ History] Metoprolol Tartrate 12.5 mg PO BID 09/03/16 [History] Pantoprazole [Protonix] 40 mg PO AC-BRKFST #30 tablet. 06/15/17 [Rx] methylPREDNISolone Dose Pack [Medrol Dose Pack] 4 mg PO DIRECTED #21 package 06/15/17 [Rx] Ipratropium-Albuterol Nebulize [Duoneb 0.5 mg-3 mg/3 ml Soln] 3 ml INHALATION RT -QID 06/20/17 [History] ALPRAZolam [Xanax] 0.25 mg PO QID #120 tablet 07/04/17 [Rx] CHLORPHEN-HYDROcod 8-10mg/5ml [Tussionex] 5 ml PO Q12H PRN #100 ml 07/04/17 [Rx] Cefdinir [Omnicef] 300 mg PO BID #14 cap 07/04/17 [Rx] Ibuprofen [Motrin] 400 mg PO Q6HR PRN tab 07/04/17 [Rx] Mag Hydrox/Al Hydrox/Simeth [Maalox] 15 ml PO Q6HR PRN cup 07/04/17 [Rx] Nicotine 14Mg/24Hr Patch [Habitrol] 1 patch TRANSDERM DAILY #30 patch 07/04/17 [ Rx] predniSONE 40 mg PO DAILY tab 07/04/17 [Rx] Follow up Appointment(s)/Referral(s): Kurtis Piña MD [Primary Care Provider] - 1 Week [facility], [NON-STAFF] - Cayden Huang MD [STAFF PHYSICIAN] - 1 Week Patient Instructions/Handouts: COPD (Chronic Obstructive Pulmonary Disease) (DC ) Activity/Diet/Wound Care/Special Instructions: DC RX Cardiac diet. Activity as tolerated.
[2017-07-04] MEDS: INSULIN ASPART 100 UNIT/ML 1 ML 10 ML VIAL SQ SCH ×4 (08:37→21:24)
[2017-07-04] MEDS: CEFDINIR 300 MG CAP PO SCH ×2 (08:38→20:08)
[2017-07-04] MEDS: PANTOPRAZOLE 40 MG TABLET PO SCH ×2 (08:38→17:44)
[2017-07-04] MEDS: HEPARIN SODIUM,PORCINE 5,000 UNIT/ML 1 ML VIAL SQ SCH ×2 (08:38→20:07)
[2017-07-04] MEDS: METOPROLOL TARTRATE 25 MG TAB PO SCH ×2 (08:38→20:09)
[2017-07-04] MEDS: predniSONE 20 MG TAB PO SCH (08:38)
--- NOTE | 2017-07-04 10:25 | P.PN ---
Subjective Progress Note Date: 07/04/17 Principal diagnosis: Acute COPD exacerbation, acute on chronic hypoxic respirator failure, left- sided supple coarse chest pain, history of lung nodules, chronic and generalized anxiety disorder, healthcare associated pneumonia, hypertension hypertensive cardiovascular disease July 04 2017, patient seen eval examined during the rounds care plan discussed with the primary service and the staff at length patient is still short of breath but severity or shortness of breath has improved though, patient has predominant component of dyspnea on exertion and anxiety which is slightly better patient is being considered for placement in extended care facility later on today discussed with patient at length 07/03/2017, patient seen and evaluated examined during the rounds she is awake and alert breathing comfortably at rest I will get short of breath on activity and exertion she had the tests and x-rays and Xanax last night able to sleep fairly well, I have reviewed her arterial blood gases her CO2 is mildly elevated however she will require likely a sleep study on outpatient basis for now she can use a loaner CPAP machine. I've discussed with the patient at length about procedure bronchoscopy for pulmonary toilet patient feels she is slightly congested but does not have significant amount of sputum production I reviewed findings of x-ray with her also discussed with her about the procedure bronchoscopy and pulmonary toilet and mentioned about small risk of respirator failure and going on respirator patient declined a bronchoscopy and pulmonary toilet for now she would like to continue current conservative therapy with breathing treatment antibiotics and steroids and CPAP machine if it can be arranged as a loaner for now. I return a prescription for the Omnicef 300 twice a day as well as the tapering prednisone. Patient is on home maintenance prednisone as well at his advised patient to continue maintenance home prednisone dose once she finished her tapering prednisone, will reevaluate patient in outpatient setting for 07/02/2017, patient seen eval and evaluated examined during the rounds still short of breath on activity and exertion have discussed with RN in detail about doing an arterial blood gas patient has been reluctant so far but now is more agreeable lately she continued to complain of shortness breath on activity and exertion at rest however she appears somewhat comfortable 07/01/2017, patient seen eval examined during the rounds she has been doing fairly well with breathing treatments oral antibiotics and steroids however continued to get short of breath of severe category with activity and exertion, patient refused Placement into ECF 06/30/2017, patient seen eval reexamined during the rounds IV antibiotics are being switched to oral patient has a poor IV axis will monitor observe for another 24-48 hours and if remains stable possible discharge 06/29/2017, patient seen and evaluated examined the rounds clinically doing well awake and alert she has been using CPAP off and on with some relief will check an arterial blood gas to evaluate patient for a need for BiPAP at home patient remains on antibiotics breathing treatments steroids severity or shortness of breath today appears to be slightly less than before 06/28/2017, patient seen irving examined during the rounds she has a trial of CPAP which she tolerated very well she used it about 4-6 hours last night she is less short of breath breathing K more comfortably able to get up but still get short of breath on activity and exertion she does have dry nonproductive cough and severe degree of dyspnea on exertion, patient expresses her desire to use the CPAP machine as needed during the day in each night during sleep, care plan discussed with the staff at length 06/27/2017, patient seen irving reexamined during the rounds she is still very short of breath especially on minimal activity becomes very dyspneic during my evaluation she just came out of the washroom and taking 5 status because very short of breath huffing and puffing denies any chest pain I have discussed with her about bronchoscopy she continued to decline I've discussed with her option of using a CPAP as needed during the day in each night with the hope that they will improve the oxygenation and ventilation and take away some of the discomfort of the breathing difficulty she is agreeable will put patient on CPAP of 5 and monitor observe patient initially will appraise at least night during sleep and when necessary during the day while she is awake 06/26/2017, patient seen irving examined during the rounds clinically doing well awake and alert breathing comfortably but still get short of breath on activity and exertion patient has been coughing intermittently but denies any rattling also denies any significant amount of his sputum production options discussed again including bronchoscopy she wants to hold onto it as she is not ready. Laboratory data reviewed medications reviewed as well 06/25/2017, patient seen and evaluated examined during the rounds overall respiratory status not much change she is on breathing treatments steroids and antibiotics she does get short of breath have discussed with patient at length on now for bronchoscopy and pulmonary toilet she has declined she wants to monitor observe and response of the therapy in the form antibiotics breathing treatments steroids and hold off on bronchoscopy, labs reviewed medications reviewed, care plan discussed with the patient at length 06/24/2017, patient seen eval reexamined during the rounds clinically slightly better in terms of breathing was still feeling cough congested and short of breath unable to bring the sputum back the sputum culture results and reports are reviewed computed tomography scan finding reviewed as noted previously patient remains on cephapirin antibiotics are being adjusted would recommend to continue breathing treatments deep breathing exercises incentive spirometry and follow clinical course closely 06/23/2017, patient seen and evaluated examined during the rounds, CAT scan finding reviewed with the patient, sputum cultures have been nondiagnostic, the CAT scan revealed reticular density in upper lobe suggestive of fibrosis and scarring predominantly in the right side, CAT scan revealed right upper lobe paratracheal infiltrate, patient also noted to have compression fracture of T11 vertebra, prior infiltrate noted in the right lower lobe have resolved Ms. 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 she is the steroid dependent as well as oxygen dependent for her advance emphysema and COPD patient recently has been hospitalized for pneumonia followed by acute COPD exacerbation was discharged in stable condition was doing relatively well for a day developed increasing shortness of breath with some left-sided supple coarse store chest discomfort and pain presented into the office of primary care provider has been advised to be admitted into the hospital and I was asked to evaluate this patient further patient has chronic ongoing shortness of breath and mostly dry nonproductive cough she frequently have acute severe paroxysmal episode of shortness of breath which is difficult to control and goes into coughing spells, patient does have a history of right upper lobe pulmonary nodule and severe degree of emphysema with the last CAT scan was performed somewhere around June 2016 she has been evaluated for nodule as well as abnormal CAT scan in the past at [facility] as a second opinion as well and was recommended to monitor and observe no intervention was advised Objective - Vital Signs Vital signs: Vital Signs Temp 97.7 F 07/04/17 06:25 Pulse 84 07/04/17 07:19 Resp 22 07/04/17 06:25 BP 116/67 07/04/17 06:25 Pulse Ox 98 07/04/17 06:56 Intake & Output 07/03/17 07/04/17 07/04/17 18:59 06:59 18:59 Weight 51.1 kg Other: Voiding Method Toilet # Voids 3 1 - Exam - Constitutional General appearance: thin short of breath on activity like making full sentence and minimal activity like taking for 5 steps - EENT Eyes: no abnormal pupil - Neck Neck: lymphadenopathy - Respiratory Respiratory: bilateral: diminished bilaterally with some subcostal tenderness present of the left anterior lateral aspect has improved significantly, fine expiratory rhonchi are present - Cardiovascular Rhythm: regular Heart sounds: normal: S1 Abnormal Heart Sounds: no S3 Gallop - Gastrointestinal General gastrointestinal: soft, no tenderness - Neurologic Neurologic: CNII-XII intact normal neuro exam - Psychiatric Psychiatric: A&O x's 3, no appropriate affect - Labs CBC & Chem 7: 07/02/17 08:05 07/02/17 08:05 Labs: Abnormal Lab Results - Last 24 Hours (Table) 07/03/17 07/03/17 07/03/17 Range/Units 12:25 17:21 21:11 POC Glucose (mg/dL) 112 H 157 H 174 H (75-99) mg/dL Assessment and Plan Assessment: Right upper lobe pneumonia likely healthcare associated pneumonia , continue oral antibiotics and monitor observe patient, agree with placement in extended care facility Acute exacerbation of severe COPD Acute on chronic hypoxic respirator failure Left-sided subcostal chest pain likely related to musculoskeletal pain due to coughing and breathing Chronic and generalized anxiety disorder Hypertension hypertensive cardiovascular disease Plan: Loner CPAP the cannot be arranged as per insurance reason will DC patient will likely need a sleep study on outpatient setting, agree with discharge planning to ECF will follow closely Evaluated for hypercapnia and hypoxic respirator failure best the case patient could be approved for home BiPAP therapy will follow, and arterial blood gas has been ordered Advised bronchoscopy for pulmonary toilet and getting good and adequate sample from lungs patient wants to hold off on that and she wants to observe the response of therapy Continue deep breathing exercises and incentive spirometry Continue oral steroids and bronchodilator in the form of nebulizer Metoprolol for history of tachycardia and hypertension to be continued lower dose Patient has been educated about smoking cessation Reviewed finding of CT angiogram with patient Antibiotic adjustment Can be discharged home from pulmonary standpoint with follow-up in outpatient setting Time with Patient: Greater than 30
[2017-07-04 12:13] LABS: Glucose,Whole Blood 111 mg/dL (75-99)
[2017-07-04 17:30] LABS: Glucose,Whole Blood 163 mg/dL (75-99)
[2017-07-04] MEDS: CHLORPHEN-HYDROcod 8-10mg/5ml 5 ML ORAL.SYRG PO PRN (20:09)
[2017-07-04 20:32] LABS: Glucose,Whole Blood 191 mg/dL (75-99)
[2017-07-05] MEDS: BUDESONIDE 1 MG/2 ML NEBU INHALATION SCH (07:25)
[2017-07-05] MEDS: IPRATROPIUM-ALBUTEROL 3 ML NEB INHALATION SCH ×3 (07:27→15:43)
[2017-07-05] MEDS: FORMOTEROL FUMARATE 20 MCG/2 ML NEBU INHALATION SCH (07:27)
[2017-07-05] MEDS: INSULIN ASPART 100 UNIT/ML 1 ML 10 ML VIAL SQ SCH ×2 (07:46→11:16)
[2017-07-05] MEDS: METOPROLOL TARTRATE 25 MG TAB PO SCH (08:03)
[2017-07-05] MEDS: HEPARIN SODIUM,PORCINE 5,000 UNIT/ML 1 ML VIAL SQ SCH (08:04)
[2017-07-05] MEDS: CEFDINIR 300 MG CAP PO SCH (08:04)
[2017-07-05] MEDS: PANTOPRAZOLE 40 MG TABLET PO SCH (08:04)
[2017-07-05] MEDS: predniSONE 20 MG TAB PO SCH (08:04)
[2017-07-05 08:13] LABS: Glucose,Whole Blood 71 mg/dL (75-99)
[2017-07-05 08:13] LABS: Glucose,Whole Blood 56 mg/dL (75-99)
[2017-07-05 11:12] LABS: Glucose,Whole Blood 117 mg/dL (75-99)
--- NOTE | 2017-07-05 13:03 | P.PN ---
Subjective Progress Note Date: 07/05/17 Principal diagnosis: Acute COPD exacerbation, acute on chronic hypoxic respirator failure, left- sided supple coarse chest pain, history of lung nodules, chronic and generalized anxiety disorder, healthcare associated pneumonia, hypertension hypertensive cardiovascular disease 07/05/2017, patient seen eval reexamined during the rounds clinically doing relatively better in terms of breathing her cough congestion shortness of breath is stable she still have issues associated getting up and moving around get very short of breath on activity and exertion, she has been on oral antibiotics and oral prednisone respiratory status is not much change she is being considered for placement in extended care facility July 04 2017, patient seen eval examined during the rounds care plan discussed with the primary service and the staff at length patient is still short of breath but severity or shortness of breath has improved though, patient has predominant component of dyspnea on exertion and anxiety which is slightly better patient is being considered for placement in extended care facility later on today discussed with patient at length 07/03/2017, patient seen and evaluated examined during the rounds she is awake and alert breathing comfortably at rest I will get short of breath on activity and exertion she had the tests and x-rays and Xanax last night able to sleep fairly well, I have reviewed her arterial blood gases her CO2 is mildly elevated however she will require likely a sleep study on outpatient basis for now she can use a loaner CPAP machine. I've discussed with the patient at length about procedure bronchoscopy for pulmonary toilet patient feels she is slightly congested but does not have significant amount of sputum production I reviewed findings of x-ray with her also discussed with her about the procedure bronchoscopy and pulmonary toilet and mentioned about small risk of respirator failure and going on respirator patient declined a bronchoscopy and pulmonary toilet for now she would like to continue current conservative therapy with breathing treatment antibiotics and steroids and CPAP machine if it can be arranged as a loaner for now. I return a prescription for the Omnicef 300 twice a day as well as the tapering prednisone. Patient is on home maintenance prednisone as well at his advised patient to continue maintenance home prednisone dose once she finished her tapering prednisone, will reevaluate patient in outpatient setting for 07/02/2017, patient seen eval and evaluated examined during the rounds still short of breath on activity and exertion have discussed with RN in detail about doing an arterial blood gas patient has been reluctant so far but now is more agreeable lately she continued to complain of shortness breath on activity and exertion at rest however she appears somewhat comfortable 07/01/2017, patient seen irving examined during the rounds she has been doing fairly well with breathing treatments oral antibiotics and steroids however continued to get short of breath of severe category with activity and exertion, patient refused Placement into ECF 06/30/2017, patient seen irving reexamined during the rounds IV antibiotics are being switched to oral patient has a poor IV axis will monitor observe for another 24-48 hours and if remains stable possible discharge 06/29/2017, patient seen and evaluated examined the rounds clinically doing well awake and alert she has been using CPAP off and on with some relief will check an arterial blood gas to evaluate patient for a need for BiPAP at home patient remains on antibiotics breathing treatments steroids severity or shortness of breath today appears to be slightly less than before 06/28/2017, patient seen irving examined during the rounds she has a trial of CPAP which she tolerated very well she used it about 4-6 hours last night she is less short of breath breathing K more comfortably able to get up but still get short of breath on activity and exertion she does have dry nonproductive cough and severe degree of dyspnea on exertion, patient expresses her desire to use the CPAP machine as needed during the day in each night during sleep, care plan discussed with the staff at length 06/27/2017, patient seen irving reexamined during the rounds she is still very short of breath especially on minimal activity becomes very dyspneic during my evaluation she just came out of the washroom and taking 5 status because very short of breath huffing and puffing denies any chest pain I have discussed with her about bronchoscopy she continued to decline I've discussed with her option of using a CPAP as needed during the day in each night with the hope that they will improve the oxygenation and ventilation and take away some of the discomfort of the breathing difficulty she is agreeable will put patient on CPAP of 5 and monitor observe patient initially will appraise at least night during sleep and when necessary during the day while she is awake 06/26/2017, patient seen irving examined during the rounds clinically doing well awake and alert breathing comfortably but still get short of breath on activity and exertion patient has been coughing intermittently but denies any rattling also denies any significant amount of his sputum production options discussed again including bronchoscopy she wants to hold onto it as she is not ready. Laboratory data reviewed medications reviewed as well 06/25/2017, patient seen and evaluated examined during the rounds overall respiratory status not much change she is on breathing treatments steroids and antibiotics she does get short of breath have discussed with patient at length on now for bronchoscopy and pulmonary toilet she has declined she wants to monitor observe and response of the therapy in the form antibiotics breathing treatments steroids and hold off on bronchoscopy, labs reviewed medications reviewed, care plan discussed with the patient at length 06/24/2017, patient seen eval reexamined during the rounds clinically slightly better in terms of breathing was still feeling cough congested and short of breath unable to bring the sputum back the sputum culture results and reports are reviewed computed tomography scan finding reviewed as noted previously patient remains on cephapirin antibiotics are being adjusted would recommend to continue breathing treatments deep breathing exercises incentive spirometry and follow clinical course closely 06/23/2017, patient seen and evaluated examined during the rounds, CAT scan finding reviewed with the patient, sputum cultures have been nondiagnostic, the CAT scan revealed reticular density in upper lobe suggestive of fibrosis and scarring predominantly in the right side, CAT scan revealed right upper lobe paratracheal infiltrate, patient also noted to have compression fracture of T11 vertebra, prior infiltrate noted in the right lower lobe have resolved Ms. 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 she is the steroid dependent as well as oxygen dependent for her advance emphysema and COPD patient recently has been hospitalized for pneumonia followed by acute COPD exacerbation was discharged in stable condition was doing relatively well for a day developed increasing shortness of breath with some left-sided supple coarse store chest discomfort and pain presented into the office of primary care provider has been advised to be admitted into the hospital and I was asked to evaluate this patient further patient has chronic ongoing shortness of breath and mostly dry nonproductive cough she frequently have acute severe paroxysmal episode of shortness of breath which is difficult to control and goes into coughing spells, patient does have a history of right upper lobe pulmonary nodule and severe degree of emphysema with the last CAT scan was performed somewhere around June 2016 she has been evaluated for nodule as well as abnormal CAT scan in the past at [facility] as a second opinion as well and was recommended to monitor and observe no intervention was advised Objective - Vital Signs Vital signs: Vital Signs Temp 97.4 F L 07/05/17 06:41 Pulse 88 07/05/17 11:20 Resp 18 07/05/17 06:41 BP 122/72 07/05/17 06:41 Pulse Ox 94 L 07/05/17 07:28 Intake & Output 07/04/17 07/05/17 07/05/17 18:59 06:59 18:59 Intake Total 400 850 Balance 400 850 Intake: Oral 400 850 Other: Voiding Method Toilet Toilet # Voids 2 - Exam - Constitutional General appearance: thin short of breath on activity like making full sentence and minimal activity like taking for 5 steps - EENT Eyes: no abnormal pupil - Neck Neck: lymphadenopathy - Respiratory Respiratory: bilateral: diminished bilaterally with some subcostal tenderness present of the left anterior lateral aspect has improved significantly, fine expiratory rhonchi are present - Cardiovascular Rhythm: regular Heart sounds: normal: S1 Abnormal Heart Sounds: no S3 Gallop - Gastrointestinal General gastrointestinal: soft, no tenderness - Neurologic Neurologic: CNII-XII intact normal neuro exam - Psychiatric Psychiatric: A&O x's 3, no appropriate affect - Labs CBC & Chem 7: 07/02/17 08:05 07/02/17 08:05 Labs: Abnormal Lab Results - Last 24 Hours (Table) 07/04/17 07/04/17 07/05/17 Range/Units 17:26 20:24 07:35 POC Glucose (mg/dL) 163 H 191 H 56 L (75-99) mg/dL 07/05/17 07/05/17 Range/Units 08:09 11:10 POC Glucose (mg/dL) 71 L 117 H (75-99) mg/dL Assessment and Plan Assessment: Right upper lobe pneumonia likely healthcare associated pneumonia , continue oral antibiotics and monitor observe patient, agree with placement in extended care facility Acute exacerbation of severe COPD Acute on chronic hypoxic respirator failure Left-sided subcostal chest pain likely related to musculoskeletal pain due to coughing and breathing Chronic and generalized anxiety disorder Hypertension hypertensive cardiovascular disease Plan: Loner CPAP the cannot be arranged as per insurance reason will DC patient will likely need a sleep study on outpatient setting, agree with discharge planning to ECF will follow closely Evaluated for hypercapnia and hypoxic respirator failure best the case patient could be approved for home BiPAP therapy will follow, and arterial blood gas has been ordered Advised bronchoscopy for pulmonary toilet and getting good and adequate sample from lungs patient wants to hold off on that and she wants to observe the response of therapy Continue deep breathing exercises and incentive spirometry Continue oral steroids and bronchodilator in the form of nebulizer Metoprolol for history of tachycardia and hypertension to be continued lower dose Patient has been educated about smoking cessation Reviewed finding of CT angiogram with patient Antibiotic adjustment Can be discharged home from pulmonary standpoint with follow-up in outpatient setting
[2017-07-05] MEDS: ALPRAZolam 0.25 MG TAB PO PRN (13:52)
[2017-07-05 15:11] VITALS: BP 100/59; PULSE 97; RESP 26; TEMP 97.6
== END 2017-07-05 16:17 | DRG 193 ==
LOC: 4MS4W 16:20
PROVIDERS: ADMIT Family Medicine; ATTEND Family Medicine
PROC: 5A09357 Assistance with Respiratory Ventilation, Less than 24 Consecutive Hours, Continuous Positive Airway Pressure (ICD-10-PCS; principal; 2017-06-27)
DX: J18.9 Pneumonia, unspecified organism (principal); J96.21 Acute and chronic respiratory failure with hypoxia; Z99.81 Dependence on supplemental oxygen; J43.9 Emphysema, unspecified; F41.1 Generalized anxiety disorder; I11.9 Hypertensive heart disease without heart failure; G47.00 Insomnia, unspecified; M19.90 Unspecified osteoarthritis, unspecified site; R07.89 Other chest pain; R53.81 Other malaise; J20.9 Acute bronchitis, unspecified; R91.1 Solitary pulmonary nodule; Z79.52 Long term (current) use of systemic steroids; Z79.899 Other long term (current) drug therapy; Z88.1 Allergy status to other antibiotic agents; Z88.0 Allergy status to penicillin; Z88.8 Allergy status to other drugs, medicaments and biological substances; Z87.891 Personal history of nicotine dependence; Z87.01 Personal history of pneumonia (recurrent); Z87.440 Personal history of urinary (tract) infections; Z90.49 Acquired absence of other specified parts of digestive tract; Z87.311 Personal history of (healed) other pathological fracture; Z80.1 Family history of malignant neoplasm of trachea, bronchus and lung; Z80.52 Family history of malignant neoplasm of bladder; Z80.3 Family history of malignant neoplasm of breast; Z80.8 Family history of malignant neoplasm of other organs or systems; Y95 Nosocomial condition
CPT/HCPCS: 36600; 71046; 71275; 80048; 80053; 82805; 83036; 85025; 85027; 87070; 87205; 93005; 94640; 94660; 94760

== ENCOUNTER → 2017-12-05 | Outpatient (CLI) | payer BC ==
--- NOTE | 2017-12-09 11:39 | MM ---
Reason for exam: screening (asymptomatic). Last mammogram was performed 1 year and 1 month ago. History: Patient is postmenopausal. Family history of breast cancer in mother. Excisional biopsy of the left breast. Physical Findings: A clinical breast exam by your physician is recommended on an annual basis and results should be correlated with mammographic findings. MG 3D Screening Mammo W/Cad Bilateral CC and MLO view(s) were taken. Prior study comparison: November 15, 2016, right breast MG 3d diag mammo w/cad RT. May 01, 2016, bilateral MG 3d screening mammo w/cad. No significant changes when compared with prior studies. ASSESSMENT: Benign, BI-RAD 2 RECOMMENDATION: Routine screening mammogram of both breasts in 1 year.
== END | disposition home or self-care (01) ==
LOC: RADMAMWWP 14:40
PROVIDERS: ATTEND Family Medicine
DX: Z12.31 Encounter for screening mammogram for malignant neoplasm of breast (principal)
CPT/HCPCS: 77063; 77067

== ENCOUNTER 2017-12-18 12:21 | Inpatient (IN) | payer BC ==
[2017-12-18] MEDS ORDERED: FUROSEMIDE 10 MG/ML 4 ML VIAL IV STA (12:35)
[2017-12-18] MEDS ORDERED: IPRATROPIUM-ALBUTEROL 3 ML NEB INHALATION STA (12:35)
--- NOTE | 2017-12-18 12:48 | ED ---
General Adult HPI - General Chief complaint: Shortness of Breath Stated complaint: SOB Time Seen by Provider: 12/18/17 12:31 Source: patient, RN notes reviewed Mode of arrival: wheelchair Limitations: no limitations - History of Present Illness Initial comments: Patient is a pleasant 62-year-old female presenting to the emergency department with difficulty breathing. Symptoms have been occurring for over a week. Patient does have cough with occasional yellowish to greenish sputum. No fevers however patient has had chills. Symptoms are similar to previous COPD. Patient did just finish a Z-Artemio without improvement of symptoms. No leg pain or leg swelling. - Related Data Home Medications Medication Instructions Recorded Confirmed Arformoterol Tartrate [Brovana] 15 mcg INHALATION RT-BID 04/14/15 12/18/17 Albuterol Inhaler [Ventolin Hfa 2 puff INHALATION RT-QID PRN 09/03/16 12/18/17 Inhaler] Metoprolol Tartrate 25 mg PO BID 09/03/16 12/18/17 Ipratropium-Albuterol Nebulize 3 ml INHALATION RT-QID 06/20/17 12/18/17 [Duoneb 0.5 mg-3 mg/3 ml Soln] Azithromycin [Zithromax Z-pack] See Taper PO DIRECTED 12/18/17 12/18/17 predniSONE 5 mg PO DAILY 12/18/17 12/18/17 rOPINIRole HCL [Requip] 0.5 mg PO HS 12/18/17 12/18/17 Previous Rx's Medication Instructions Recorded Budesonide [Pulmicort] 0.5 mg INHALATION RT-BID nebu 12/17/14 Pantoprazole [Protonix] 40 mg PO LIZZETH-RADHAKFSBrandon #30 tablet. 06/15/17 methylPREDNISolone Dose Pack 4 mg PO DIRECTED #21 package 06/15/17 [Medrol Dose Pack] ALPRAZolam [Xanax] 0.25 mg PO QID #120 tablet 07/04/17 CHLORPHEN-HYDROcod 8-10mg/5ml 5 ml PO Q12H PRN #100 ml 07/04/17 [Tussionex] Cefdinir [Omnicef] 300 mg PO BID #14 cap 07/04/17 Ibuprofen [Motrin] 400 mg PO Q6HR PRN tab 07/04/17 Mag Hydrox/Al Hydrox/Simeth 15 ml PO Q6HR PRN cup 07/04/17 [Maalox] Allergies Allergy/AdvReac Type Severity Reaction Status Date / Time levofloxacin [From Levaquin] Allergy Rash/Hives Verified 12/18/17 12:27 montelukast [From Singulair] Allergy Itching Verified 12/18/17 12:27 Penicillins Allergy Rash/Hives Verified 12/18/17 12:27 Review of Systems ROS Statement: Those systems with pertinent positive or pertinent negative responses have been documented in the HPI. ROS Other: All systems not noted in ROS Statement are negative. Constitutional: Reports: chills. Denies: fever Eyes: Denies: eye pain ENT: Denies: ear pain Respiratory: Reports: cough, dyspnea Cardiovascular: Denies: chest pain Endocrine: Reports: fatigue Gastrointestinal: Denies: abdominal pain Genitourinary: Denies: dysuria Musculoskeletal: Denies: back pain Skin: Denies: rash Neurological: Denies: headache Past Medical History Past Medical History: COPD, Osteoarthritis (OA), Pneumonia Additional Past Medical History / Comment(s): HOME 02 2-3 LITERS [place], UTI-ECOLI , EDENTULOUS, previous spine fracture History of Any Multi-Drug Resistant Organisms: None Reported Past Surgical History: Appendectomy Additional Past Surgical History / Comment(s): LASER EYE SX Past Anesthesia/Blood Transfusion Reactions: No Reported Reaction Past Psychological History: Anxiety Smoking Status: Former smoker Past Alcohol Use History: Occasional Past Drug Use History: None Reported - Past Family History Mother Family Medical History: Cancer Additional Family Medical History / Comment(s): breast/BLADDER CA Father Family Medical History: Cancer Additional Family Medical History / Comment(s): lung ca, BRAIN TUMORS General Exam Limitations: no limitations General appearance: alert, in no apparent distress Head exam: Present: atraumatic Eye exam: Present: normal appearance, PERRL ENT exam: Present: normal oropharynx Neck exam: Present: normal inspection Respiratory exam: Present: wheezes, decreased breath sounds Cardiovascular Exam: Present: regular rate, normal rhythm GI/Abdominal exam: Present: soft. Absent: tenderness Extremities exam: Present: normal inspection. Absent: pedal edema, calf tenderness Back exam: Present: normal inspection Neurological exam: Present: alert Psychiatric exam: Present: normal affect, normal mood Skin exam: Present: normal color Course Vital Signs 12/18/17 12/18/17 12/18/17 12:24 12:53 13:02 Temperature 97.9 F Pulse Rate 81 75 72 Respiratory 20 20 Rate Blood Pressure 129/64 O2 Sat by Pulse 99 Oximetry 12/18/17 13:42 Temperature Pulse Rate 90 Respiratory 18 Rate Blood Pressure 119/60 O2 Sat by Pulse 97 Oximetry EKG Findings - EKG Comments: EKG Findings:: Normal sinus rhythm at 70. TX 120. QRS 74. QT 390. QTC 421. Normal axis. Normal QRS. Some T-wave inversion leads V3 through V6. Medical Decision Making - Medical Decision Making Patient reevaluated and updated. No change. Case was discussed in detail with Dr. Piña, who will admit his patient. Patient does see Dr. Naranjo for pulmonary. - Lab Data Result diagrams: 12/18/17 12:45 12/18/17 12:45 Lab Results 12/18/17 12/18/17 Range/Units 12:45 12:45 WBC 10.1 (3.8-10.6) k/uL RBC 4.97 (3.80-5.40) m/uL Hgb 14.3 (11.4-16.0) gm/dL Hct 45.6 (34.0-46.0) % MCV 91.7 (80.0-100.0) fL MCH 28.8 (25.0-35.0) pg MCHC 31.4 (31.0-37.0) g/dL RDW 14.2 (11.5-15.5) % Plt Count 205 (150-450) k/uL Neutrophils % 78 % Lymphocytes % 15 % Monocytes % 4 % Eosinophils % 1 % Basophils % 0 % Neutrophils # 7.9 H (1.3-7.7) k/uL Lymphocytes # 1.5 (1.0-4.8) k/uL Monocytes # 0.4 (0-1.0) k/uL Eosinophils # 0.1 (0-0.7) k/uL Basophils # 0.0 (0-0.2) k/uL Sodium 140 (137-145) mmol/L Potassium 4.9 (3.5-5.1) mmol/L Chloride 101 (98-107) mmol/L Carbon Dioxide 29 (22-30) mmol/L Anion Gap 10 mmol/L BUN 18 H (7-17) mg/dL Creatinine 0.76 (0.52-1.04) mg/dL Est GFR (CKD-EPI)AfAm >90 (>60 ml/min/1.73 sqM) Est GFR (CKD-EPI)NonAf 84 (>60 ml/min/1.73 sqM) Glucose 99 (74-99) mg/dL Calcium 9.8 (8.4-10.2) mg/dL Total Bilirubin 0.6 (0.2-1.3) mg/dL AST 24 (14-36) U/L ALT 21 (9-52) U/L Alkaline Phosphatase 56 (38-126) U/L Total Protein 7.2 (6.3-8.2) g/dL Albumin 4.5 (3.5-5.0) g/dL - Radiology Data Radiology results: image reviewed (Chest x-ray shows no infiltrate. COPD.) Disposition Clinical Impression: Acute exacerbation of chronic obstructive airways disease Disposition: ADMITTED IP TO THIS HOSP Is patient prescribed a controlled substance at d/c from ED?: No Referrals: Kurtis Piña MD [Primary Care Provider] - 1-2 days Decision Time: 14:58
[2017-12-18 13:08] LABS: Basophils % (A) 0 %; Eosinophils # (A) 0.1 k/uL (0-0.7); Eosinophils % (A) 1 %; HCT 45.6 % (34.0-46.0); HGB 14.3 gm/dL (11.4-16.0); Lymphocytes # (A) 1.5 k/uL (1.0-4.8); Lymphocytes % (A) 15 %; MCH 28.8 pg (25.0-35.0); MCHC 31.4 g/dL (31.0-37.0); MCV 91.7 fL (80.0-100.0); Mean Platelet Volume 7.5; Monocytes # (A) 0.4 k/uL (0-1.0); Monocytes % (A) 4 %; Neutrophils # (A) 7.9 k/uL (1.3-7.7); Neutrophils % (A) 78 %; Platelet Count 205 k/uL (150-450); RBC 4.97 m/uL (3.80-5.40); RDW 14.2 % (11.5-15.5); WBC 10.1 k/uL (3.8-10.6)
[2017-12-18 13:17] LABS: ALT 21 U/L (9-52); AST 24 U/L (14-36); Albumin 4.5 g/dL (3.5-5.0); Alkaline Phosphatase 56 U/L (38-126); Anion Gap 10 mmol/L; Blood Urea Nitrogen 18 mg/dL (7-17); Calcium 9.8 mg/dL (8.4-10.2); Carbon Dioxide 29 mmol/L (22-30); Chloride 101 mmol/L (98-107); Glucose 99 mg/dL (74-99); Potassium 4.9 mmol/L (3.5-5.1); Sodium 140 mmol/L (137-145); Total Bilirubin 0.6 mg/dL (0.2-1.3); Total Protein 7.2 g/dL (6.3-8.2)
--- NOTE | 2017-12-18 13:43 | XR ---
EXAMINATION TYPE: XR chest 2V DATE OF EXAM: 12/18/2017 COMPARISON: 06/20/2017 HISTORY: 62-year-old female difficulty breathing TECHNIQUE: Frontal and lateral views FINDINGS: Heart normal size. Aorta and pulmonary vasculature within normal limits. Bullous changes in the upper lungs with hyperinflation and flattening of the hemidiaphragms. No consolidation or pleural effusion seen. IMPRESSION: COPD with bullous changes in the upper lungs. No acute process seen.
[2017-12-18] MEDS ORDERED: IPRATROPIUM-ALBUTEROL 3 ML NEB INHALATION PRN (14:58)
[2017-12-18] MEDS ORDERED: methylPREDNISolone SOD SUCCI 125 MG/2 ML VIAL IV STA (14:58)
[2017-12-18] MEDS ORDERED: MAG HYDROX/AL HYDROX/SIMETH 30 ML CUP PO PRN (16:24)
[2017-12-18] MEDS ORDERED: NON-FORMULARY DRUG (Chlorphen-Hydrocod 8-10mg/5ml 5 ML) PO PRN (16:24)
[2017-12-18] MEDS: IPRATROPIUM-ALBUTEROL 3 ML NEB INHALATION SCH ×2 (17:08→20:02)
[2017-12-18 17:11] LABS: Glucose,Whole Blood 103 mg/dL (75-99)
[2017-12-18] MEDS: INSULIN ASPART 100 UNIT/ML 1 ML 10 ML VIAL SQ SCH ×2 (17:30→22:21)
[2017-12-18] MEDS: ALPRAZolam 0.25 MG TAB PO SCH ×2 (17:31→22:21)
[2017-12-18] MEDS: methylPREDNISolone SOD SUCCI 125 MG/2 ML VIAL IV SCH (17:33)
[2017-12-18] MEDS: BUDESONIDE 0.5 MG/2 ML NEBU INHALATION SCH (20:01)
[2017-12-18] MEDS: FORMOTEROL FUMARATE 20 MCG/2 ML NEBU INHALATION SCH (20:02)
[2017-12-18 21:20] LABS: Glucose,Whole Blood 322 mg/dL (75-99)
[2017-12-18] MEDS: METOPROLOL TARTRATE 25 MG TAB PO SCH (22:21)
[2017-12-18] MEDS: CEFDINIR 300 MG CAP PO SCH (22:36)
[2017-12-19] MEDS: methylPREDNISolone SOD SUCCI 125 MG/2 ML VIAL IV SCH ×5 (01:07→23:20)
[2017-12-19] MEDS: IBUPROFEN 400 MG TAB PO PRN ×3 (04:42→18:03)
[2017-12-19 07:22] LABS: Glucose,Whole Blood 201 mg/dL (75-99)
[2017-12-19] MEDS: BUDESONIDE 0.5 MG/2 ML NEBU INHALATION SCH ×2 (07:39→20:24)
[2017-12-19] MEDS: IPRATROPIUM-ALBUTEROL 3 ML NEB INHALATION SCH ×4 (07:39→20:24)
[2017-12-19] MEDS: FORMOTEROL FUMARATE 20 MCG/2 ML NEBU INHALATION SCH ×2 (07:39→20:24)
[2017-12-19 07:58] LABS: Basophils % (A) 0 %; Eosinophils % (A) 0 %; HCT 44.6 % (34.0-46.0); HGB 13.9 gm/dL (11.4-16.0); Lymphocytes # (A) 1.3 k/uL (1.0-4.8); Lymphocytes % (A) 12 %; MCH 28.7 pg (25.0-35.0); MCHC 31.2 g/dL (31.0-37.0); MCV 91.9 fL (80.0-100.0); Mean Platelet Volume 7.3; Monocytes # (A) 0.2 k/uL (0-1.0); Monocytes % (A) 2 %; Neutrophils # (A) 9.3 k/uL (1.3-7.7); Neutrophils % (A) 86 %; Platelet Count 227 k/uL (150-450); RBC 4.86 m/uL (3.80-5.40); RDW 14.1 % (11.5-15.5); WBC 10.9 k/uL (3.8-10.6)
[2017-12-19] MEDS: INSULIN ASPART 100 UNIT/ML 1 ML 10 ML VIAL SQ SCH ×4 (07:59→20:54)
[2017-12-19] MEDS: PANTOPRAZOLE 40 MG TABLET PO SCH (08:00)
[2017-12-19] MEDS: CEFDINIR 300 MG CAP PO SCH ×2 (08:00→20:22)
[2017-12-19] MEDS: METOPROLOL TARTRATE 25 MG TAB PO SCH ×2 (08:00→20:22)
[2017-12-19 08:28] LABS: Albumin 4.4 g/dL (3.5-5.0); Calcium 9.6 mg/dL (8.4-10.2); Magnesium 1.9 mg/dL (1.6-2.3); Potassium 4.8 mmol/L (3.5-5.1); Total Bilirubin 0.6 mg/dL (0.2-1.3); Total Protein 7.1 g/dL (6.3-8.2)
[2017-12-19] MEDS: ALPRAZolam 0.25 MG TAB PO SCH ×2 (08:32→10:39)
[2017-12-19 12:33] LABS: Glucose,Whole Blood 110 mg/dL (75-99)
--- NOTE | 2017-12-19 15:40 | P.CNPUL ---
History of Present Illness Consult date: 12/19/17 Reason for consult: dyspnea, cough, chest pain, COPD, hypoxemia, pneumonia Chief complaint: Cough shortness of breath and wheezing and failed outpatient therapy History of present illness: 62-year-old female with end-stage lung disease which is oxygen dependent as well as low-dose prednisone-dependent as well, secondary severe COPD emphysema and extensive smoking and nicotine use, patient has not been doing well for the last almost a week with increased cuff congestion shortness breath and chest tightness with thick tenacious yellow to green sputum production patient was treated with outpatient antibiotics without any significant relief due to persistent symptoms came into the hospital was evaluated in emergency department and subsequently has been admitted into the hospital, on specific questioning he denies any seizure-like activity loss of consciousness or hemiparesis, also denies any chest pain or radiation of pain just the have some chest tightness though, denies any hemoptysis, denies any other bowel or bladder dysfunction Review of Systems All systems: negative Past Medical History Past Medical History: COPD, Osteoarthritis (OA), Pneumonia Additional Past Medical History / Comment(s): HOME 02 2 LITERS [place], UTI-ECOLI, EDENTULOUS, previous spine fracture did pt no brace worn, occ palpitations, rls, " lt shoulder pain". History of Any Multi-Drug Resistant Organisms: None Reported Past Surgical History: Appendectomy Additional Past Surgical History / Comment(s): LASER EYE SX, lt breast bx-neg Past Anesthesia/Blood Transfusion Reactions: No Reported Reaction Smoking Status: Former smoker - Past Family History Mother Family Medical History: Cancer Additional Family Medical History / Comment(s): breast/BLADDER CA Father Family Medical History: Cancer Additional Family Medical History / Comment(s): lung ca, BRAIN TUMORS Medications and Allergies Home Medications Medication Instructions Recorded Confirmed Type Budesonide [Pulmicort] 0.5 mg INHALATION RT-BID nebu 12/17/14 12/18/17 Rx Arformoterol Tartrate [Brovana] 15 mcg INHALATION RT-BID 04/14/15 12/18/17 History Albuterol Inhaler [Ventolin Hfa 2 puff INHALATION RT-QID PRN 09/03/16 12/18/17 History Inhaler] Metoprolol Tartrate 25 mg PO BID 09/03/16 12/18/17 History Pantoprazole [Protonix] 40 mg PO AC-BRKFST #30 tablet. 06/15/17 12/18/17 Rx methylPREDNISolone Dose Pack 4 mg PO DIRECTED #21 package 06/15/17 12/18/17 Rx [Medrol Dose Pack] Ipratropium-Albuterol Nebulize 3 ml INHALATION RT-QID 06/20/17 12/18/17 History [Duoneb 0.5 mg-3 mg/3 ml Soln] ALPRAZolam [Xanax] 0.25 mg PO QID #120 tablet 07/04/17 12/18/17 Rx CHLORPHEN-HYDROcod 8-10mg/5ml 5 ml PO Q12H PRN #100 ml 07/04/17 12/18/17 Rx [Tussionex] Cefdinir [Omnicef] 300 mg PO BID #14 cap 07/04/17 12/18/17 Rx Ibuprofen [Motrin] 400 mg PO Q6HR PRN tab 07/04/17 12/18/17 Rx Mag Hydrox/Al Hydrox/Simeth 15 ml PO Q6HR PRN cup 07/04/17 12/18/17 Rx [Maalox] Azithromycin [Zithromax Z-pack] See Taper PO DIRECTED 12/18/17 12/18/17 History predniSONE 5 mg PO DAILY 12/18/17 12/18/17 History rOPINIRole HCL [Requip] 0.5 mg PO HS 12/18/17 12/18/17 History Allergies Allergy/AdvReac Type Severity Reaction Status Date / Time levofloxacin [From Levaquin] Allergy Rash/Hives Verified 12/18/17 12:27 montelukast [From Singulair] Allergy Itching Verified 12/18/17 12:27 Penicillins Allergy Rash/Hives Verified 12/18/17 12:27 Physical Exam Vitals: Vital Signs Temp Pulse Pulse Resp BP BP Pulse Ox 12/19/17 14:24 98.3 F 85 16 98/61 94 L 12/19/17 12:11 84 12/19/17 11:55 84 12/19/17 08:01 86 12/19/17 07:50 84 12/19/17 07:49 84 12/19/17 07:39 80 12/19/17 07:00 97.8 F 82 18 102/65 96 12/18/17 23:00 98.3 F 78 18 93/56 97 12/18/17 20:26 80 12/18/17 20:14 78 12/18/17 20:02 78 12/18/17 17:22 80 12/18/17 17:09 78 99 12/18/17 16:06 98.4 F 69 18 115/67 99 12/18/17 15:29 98.9 F 76 18 110/62 97 Intake and Output 12/19/17 12/19/17 12/19/17 06:59 14:59 22:59 Intake Total 500 440 Balance 500 440 Intake: Oral 500 440 Other: # Voids 2 2 # Bowel Movements 0 - Constitutional General appearance: average body habitus, cooperative, disheveled, mild distress , thin - EENT Eyes: anicteric sclerae, EOMI, PERRLA, normal appearance ENT: hearing grossly normal, normal oropharynx Ears: bilateral: normal - Neck Carotids: bilateral: upstroke normal Thyroid: negative: normal size - Respiratory Respiratory: bilateral: diminished, rhonchi, wheezing (Especially during coughing and wheezing), negative: CTA, dullness, rales - Cardiovascular Rhythm: regular Heart sounds: normal: S1, S2 - Gastrointestinal General gastrointestinal: normal bowel sounds - Integumentary Integumentary: normal, normal turgor - Neurologic Neurologic: CNII-XII intact - Musculoskeletal Musculoskeletal: gait normal, generalized weakness, strength equal bilaterally - Psychiatric Psychiatric: A&O x's 3, appropriate affect, intact judgment & insight Results - Laboratory Findings CBC and BMP: 12/19/17 07:14 12/19/17 07:14 Abnormal lab findings: Abnormal Labs 12/18/17 12/18/17 12/18/17 12:45 12:45 17:03 WBC Neutrophils # 7.9 H Sodium Chloride BUN 18 H Glucose POC Glucose (mg/dL) 103 H 12/18/17 12/19/17 12/19/17 21:13 07:14 07:14 WBC 10.9 H Neutrophils # 9.3 H Sodium 134 L Chloride 93 L BUN 25 H Glucose 206 H POC Glucose (mg/dL) 322 H 12/19/17 12/19/17 07:14 12:29 WBC Neutrophils # Sodium Chloride BUN Glucose POC Glucose (mg/dL) 201 H 110 H - Diagnostic Findings Chest x-ray: report reviewed, image reviewed Assessment and Plan Assessment: Acute exacerbation of COPD Purulent tracheobronchitis Acute on chronic hypoxic respiratory failure 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 Protein calorie malnourishment History of arrhythmia History of RLS Plan: Broad-spectrum antibiotics, Breathing treatments IV steroids DVT and peptic ulcer disease prophylaxis Accu-Cheks Adding scale insulin for borderline hyperglycemia Increase activity as tolerated We'll follow clinical course closely further recommendations pending send sputum for Gram stain and culture Time with Patient: Greater than 30
[2017-12-19] MEDS: ALPRAZolam 0.25 MG TAB PO PRN (15:56)
[2017-12-19 16:05] LABS: Hemoglobin A1C 6.3 % (4.0-6.0)
--- NOTE | 2017-12-19 17:08 | P.HPIM ---
History of Present Illness H&P Date: 12/19/17 Chief Complaint: Worsening shortness of breath. This is a history and physical on a 62-year-old white female with history of COPD. She has at times oxygen dependent. The patient states that for the last week, she has been having worsening cough and congestion. This is a sign for her, that she is having worsening type symptomatology. Activities of daily living are nobeen making it more difficult. She recently has a standing order for Zithromax at a local hospital secondary to her institutional nutrition consultant. The patient has taken this medication without significant improvement. Evaluation in the emergency room did show probable exacerbation and she is now readmitted. She has been in pulmonary rehab in the past but has stopped secondary to scheduling issues. Review of Systems Constitutional: Denies chills, Denies fever Eyes: denies blurred vision, denies pain Ears, nose, mouth and throat: Denies headache, Denies sore throat Cardiovascular: Denies chest pain, Denies shortness of breath Respiratory: Reports cough, Reports excessive sputum, Reports home oxygen Gastrointestinal: Reports as per HPI Genitourinary: Denies dysuria, Denies hematuria Musculoskeletal: Denies myalgias Integumentary: Denies pruritus, Denies rash Neurological: Denies numbness, Denies weakness Psychiatric: Denies anxiety, Denies depression Endocrine: Denies fatigue, Denies weight change Past Medical History Past Medical History: COPD, Osteoarthritis (OA), Pneumonia Additional Past Medical History / Comment(s): HOME 02 2 [place], UTI-ECOLI, EDENTULOUS, previous spine fracture did pt no brace worn, occ palpitations, rls, " lt shoulder pain". History of Any Multi-Drug Resistant Organisms: None Reported Past Surgical History: Appendectomy Additional Past Surgical History / Comment(s): LASER EYE SX, lt breast bx-neg Past Anesthesia/Blood Transfusion Reactions: No Reported Reaction Smoking Status: Former smoker - Past Family History Mother Family Medical History: Cancer Additional Family Medical History / Comment(s): breast/BLADDER CA Father Family Medical History: Cancer Additional Family Medical History / Comment(s): lung ca, BRAIN TUMORS Medications and Allergies Home Medications Medication Instructions Recorded Confirmed Type RX: Budesonide [Pulmicort] 0.5 mg INHALATION RT-BID nebu 12/17/14 12/18/17 Rx RX: Arformoterol Tartrate [Brovana] 15 mcg INHALATION RT-BID 04/14/15 12/18/17 History RX: Albuterol Inhaler [Ventolin 2 puff INHALATION RT-QID PRN 09/03/16 12/18/17 History Hfa Inhaler] RX: Metoprolol Tartrate 25 mg PO BID 09/03/16 12/18/17 History RX: Pantoprazole [Protonix] 40 mg PO GODWIN #30 tablet. 06/15/17 12/18/17 Rx RX: methylPREDNISolone Dose Pack 4 mg PO DIRECTED #21 package 06/15/17 Rx [Medrol Dose Pack] RX: Ipratropium-Albuterol Nebulize 3 ml INHALATION RT-QID 06/20/17 12/18/17 History [Duoneb 0.5 mg-3 mg/3 ml Soln] RX: ALPRAZolam [Xanax] 0.25 mg PO QID #120 tablet 07/04/17 12/18/17 Rx RX: CHLORPHEN-HYDROcod 8-10mg/5ml 5 ml PO Q12H PRN #100 ml 07/04/17 12/18/17 Rx [Tussionex] RX: Cefdinir [Omnicef] 300 mg PO BID #14 cap 07/04/17 12/18/17 Rx RX: Ibuprofen [Motrin] 400 mg PO Q6HR PRN tab 07/04/17 12/18/17 Rx RX: Mag Hydrox/Al Hydrox/Simeth 15 ml PO Q6HR PRN cup 07/04/17 12/18/17 Rx [Maalox] Azithromycin [Zithromax Z-pack] See Taper PO DIRECTED 12/18/17 12/18/17 History RX: predniSONE 5 mg PO DAILY 12/18/17 12/18/17 History rOPINIRole HCL [Requip] 0.5 mg PO HS 12/18/17 12/18/17 History Allergies Allergy/AdvReac Type Severity Reaction Status Date / Time levofloxacin [From Levaquin] Allergy Rash/Hives Verified 12/18/17 12:27 montelukast [From Singulair] Allergy Itching Verified 12/18/17 12:27 Penicillins Allergy Rash/Hives Verified 12/18/17 12:27 Physical Exam Vitals: Vital Signs Temp Pulse Pulse Resp BP Pulse Ox 12/19/17 16:32 81 12/19/17 16:18 83 95 12/19/17 14:24 98.3 F 85 16 98/61 94 L 12/19/17 12:11 84 12/19/17 11:55 84 12/19/17 08:01 86 12/19/17 07:50 84 12/19/17 07:49 84 12/19/17 07:39 80 12/19/17 07:00 97.8 F 82 18 102/65 96 12/18/17 23:00 98.3 F 78 18 93/56 97 12/18/17 20:26 80 12/18/17 20:14 78 12/18/17 20:02 78 12/18/17 17:22 80 12/18/17 17:09 78 99 Intake and Output 12/19/17 12/19/17 12/19/17 06:59 14:59 22:59 Intake Total 500 440 Balance 500 440 Intake: Oral 500 440 Other: # Voids 2 2 # Bowel Movements 0 - Constitutional General appearance: average body habitus - EENT Eyes: EOMI - Neck Neck: no lymphadenopathy - Respiratory Respiratory: bilateral: diminished - Cardiovascular Rhythm: regular Heart sounds: normal: S1, S2 Abnormal Heart Sounds: no S3 Gallop - Gastrointestinal General gastrointestinal: soft, no tenderness - Neurologic Neurologic: focal deficits - Musculoskeletal Musculoskeletal: generalized weakness - Psychiatric Psychiatric: A&O x's 3, appropriate affect, intact judgment & insight Results CBC & Chem 7: 12/19/17 07:14 12/19/17 07:14 Labs: Abnormal Lab Results - Last 24 Hours (Table) 12/18/17 12/18/17 12/18/17 Range/Units 12:45 17:03 21:13 WBC (3.8-10.6) k/uL Neutrophils # (1.3-7.7) k/uL Sodium (137-145) mmol/L Chloride (98-107) mmol/L BUN (7-17) mg/dL Glucose (74-99) mg/dL POC Glucose (mg/dL) 103 H 322 H (75-99) mg/dL Hemoglobin A1c 6.3 H (4.0-6.0) % 09/12/19/17 12/19/17 Range/Units 07:14 07:14 07:14 WBC 10.9 H (3.8-10.6) k/uL Neutrophils # 9.3 H (1.3-7.7) k/uL Sodium 134 L (137-145) mmol/L Chloride 93 L (98-107) mmol/L BUN 25 H (7-17) mg/dL Glucose 206 H (74-99) mg/dL POC Glucose (mg/dL) 201 H (75-99) mg/dL Hemoglobin A1c (4.0-6.0) % 12/19/17 Range/Units 12:29 WBC (3.8-10.6) k/uL Neutrophils # (1.3-7.7) k/uL Sodium (137-145) mmol/L Chloride (98-107) mmol/L BUN (7-17) mg/dL Glucose (74-99) mg/dL POC Glucose (mg/dL) 110 H (75-99) mg/dL Hemoglobin A1c (4.0-6.0) % Thrombosis Risk Factor Assmnt - Choose All That Apply Any of the Below Risk Factors Present?: Yes Each Factor Represents 1 point: Abnormal pulmonary function (COPD) Other Risk Factors: Yes Each Risk Factor Represents 2 Points: Age 61-74 years Other congenital or acquired thrombophilia - If yes, enter type in comment: No Thrombosis Risk Factor Assessment Total Risk Factor Score: 3 Thrombosis Risk Factor Assessment Level: Moderate Risk Assessment and Plan (1) Acute exacerbation of chronic obstructive airways disease Current Visit: Yes Status: Acute Code(s): J44.1 - CHRONIC OBSTRUCTIVE PULMONARY DISEASE W (ACUTE) EXACERBATION SNOMED Code(s): 023579034 (2) Debility Current Visit: No Status: Acute Code(s): R53.81 - OTHER MALAISE SNOMED Code(s): 46208790 Plan: The patient has and placed on appropriate protocol for COPD exacerbation. Pulmonology has been consulted. Check CBC, CMP in the a.m. We will also check magnesium. The patient is now full code. I spent a considerable amount of time talking about her other options. We did briefly discuss the possibility of investigating stem cell usage. Prognosis is otherwise guarded. Time with Patient: Greater than 30
[2017-12-19 17:30] LABS: Glucose,Whole Blood 185 mg/dL (75-99)
[2017-12-19 20:40] LABS: Glucose,Whole Blood 149 mg/dL (75-99)
[2017-12-20] MEDS: methylPREDNISolone SOD SUCCI 125 MG/2 ML VIAL IV SCH ×3 (06:23→17:30)
[2017-12-20] MEDS: BUDESONIDE 0.5 MG/2 ML NEBU INHALATION SCH ×2 (07:20→20:53)
[2017-12-20] MEDS: IPRATROPIUM-ALBUTEROL 3 ML NEB INHALATION SCH ×4 (07:20→20:53)
[2017-12-20] MEDS: FORMOTEROL FUMARATE 20 MCG/2 ML NEBU INHALATION SCH ×2 (07:20→20:53)
[2017-12-20 07:37] LABS: Glucose,Whole Blood 100 mg/dL (75-99)
--- NOTE | 2017-12-20 08:07 | P.PN ---
Subjective Progress Note Date: 12/20/17 Principal diagnosis: COPD exacerbation. This is a 62-year-old white female essentially been for COPD exacerbation. She states that she is not necessarily clinically improved today. She states cutting her meet yesterday did cause significant fatigue because of the toughness of the meal. Otherwise, no voiding difficulties. No significant nausea, vomiting or diarrhea is stated. I do appreciate pulmonary input. Objective - Vital Signs Vital signs: Vital Signs Temp 97.6 F 12/20/17 06:09 Pulse 86 12/20/17 07:40 Resp 18 12/20/17 06:09 BP 91/57 12/20/17 06:09 Pulse Ox 96 12/20/17 06:09 Intake & Output 12/19/17 12/20/17 12/20/17 18:59 06:59 18:59 Intake Total 440 750 Balance 440 750 Intake: Oral 440 750 Other: Voiding Method Toilet # Voids 2 1 # Bowel Movements 1 - Constitutional General appearance: Present: thin - EENT Eyes: Absent: abnormal pupil - Respiratory Respiratory: bilateral: diminished, prolonged expiration - Cardiovascular Rhythm: regular Heart sounds: normal: S1, S2 Abnormal Heart Sounds: Absent: S3 Gallop - Gastrointestinal General gastrointestinal: Present: soft. Absent: tenderness - Integumentary Integumentary: Absent: cellulitis - Neurologic Neurologic: Present: CNII-XII intact - Musculoskeletal Musculoskeletal: Absent: right sided weakness - Labs CBC & Chem 7: 12/19/17 07:14 12/19/17 07:14 Labs: Abnormal Lab Results - Last 24 Hours (Table) 12/18/17 12/19/17 12/19/17 Range/Units 12:45 07:14 12:29 Sodium 134 L (137-145) mmol/L Chloride 93 L (98-107) mmol/L BUN 25 H (7-17) mg/dL Glucose 206 H (74-99) mg/dL POC Glucose (mg/dL) 110 H (75-99) mg/dL Hemoglobin A1c 6.3 H (4.0-6.0) % 12/19/17 12/19/17 12/20/17 Range/Units 17:17 20:34 07:07 Sodium (137-145) mmol/L Chloride (98-107) mmol/L BUN (7-17) mg/dL Glucose (74-99) mg/dL POC Glucose (mg/dL) 185 H 149 H 100 H (75-99) mg/dL Hemoglobin A1c (4.0-6.0) % Microbiology - Last 24 Hours (Table) 12/19/17 20:50 Sputum Culture - Preliminary Sputum Assessment and Plan (1) Acute exacerbation of chronic obstructive airways disease Current Visit: Yes Status: Acute Code(s): J44.1 - CHRONIC OBSTRUCTIVE PULMONARY DISEASE W (ACUTE) EXACERBATION SNOMED Code(s): 710072629 (2) Debility Current Visit: No Status: Acute Code(s): R53.81 - OTHER MALAISE SNOMED Code(s): 57563101 Plan: Continue current regimen of treatment. Check CBC and CMP in a.m. Dr. Sommers's group will be covering for the weekend.
[2017-12-20] MEDS: INSULIN ASPART 100 UNIT/ML 1 ML 10 ML VIAL SQ SCH ×4 (08:31→22:28)
[2017-12-20] MEDS: METOPROLOL TARTRATE 25 MG TAB PO SCH ×2 (08:35→22:23)
[2017-12-20] MEDS: PANTOPRAZOLE 40 MG TABLET PO SCH (08:35)
[2017-12-20] MEDS: ALPRAZolam 0.25 MG TAB PO PRN ×3 (08:35→22:28)
[2017-12-20] MEDS: CEFDINIR 300 MG CAP PO SCH ×2 (08:35→22:23)
[2017-12-20] MEDS: IBUPROFEN 400 MG TAB PO PRN ×2 (08:39→17:28)
[2017-12-20 08:43] LABS: HCT 45.1 % (34.0-46.0); HGB 14.7 gm/dL (11.4-16.0); MCH 29.2 pg (25.0-35.0); MCHC 32.5 g/dL (31.0-37.0); MCV 89.9 fL (80.0-100.0); Mean Platelet Volume 7.4; Platelet Count 253 k/uL (150-450); RBC 5.01 m/uL (3.80-5.40); RDW 14.3 % (11.5-15.5); WBC 19.8 k/uL (3.8-10.6)
[2017-12-20 08:52] LABS: Albumin 4.8 g/dL (3.5-5.0); Calcium 10.5 mg/dL (8.4-10.2); Potassium 4.9 mmol/L (3.5-5.1); Total Bilirubin 0.5 mg/dL (0.2-1.3); Total Protein 7.4 g/dL (6.3-8.2)
[2017-12-20 12:09] LABS: Glucose,Whole Blood 95 mg/dL (75-99)
[2017-12-20 17:17] LABS: Glucose,Whole Blood 118 mg/dL (75-99)
[2017-12-20 20:33] LABS: Glucose,Whole Blood 217 mg/dL (75-99)
[2017-12-21] MEDS: methylPREDNISolone SOD SUCCI 125 MG/2 ML VIAL IV SCH ×4 (00:43→18:50)
[2017-12-21] MEDS: ALPRAZolam 0.25 MG TAB PO PRN ×2 (06:11→19:54)
[2017-12-21] MEDS: IBUPROFEN 400 MG TAB PO PRN ×2 (06:11→19:54)
[2017-12-21 06:58] LABS: Glucose,Whole Blood 139 mg/dL (75-99)
[2017-12-21 07:55] LABS: HCT 46.8 % (34.0-46.0); HGB 14.6 gm/dL (11.4-16.0); MCH 28.8 pg (25.0-35.0); MCHC 31.3 g/dL (31.0-37.0); Mean Platelet Volume 7.2; Platelet Count 255 k/uL (150-450); RBC 5.09 m/uL (3.80-5.40); RDW 14.4 % (11.5-15.5)
[2017-12-21] MEDS: IPRATROPIUM-ALBUTEROL 3 ML NEB INHALATION SCH ×4 (08:12→21:08)
[2017-12-21] MEDS: FORMOTEROL FUMARATE 20 MCG/2 ML NEBU INHALATION SCH ×2 (08:12→21:08)
[2017-12-21] MEDS: BUDESONIDE 0.5 MG/2 ML NEBU INHALATION SCH ×2 (08:12→21:08)
[2017-12-21] MEDS: METOPROLOL TARTRATE 25 MG TAB PO SCH ×2 (08:15→21:57)
[2017-12-21] MEDS: PANTOPRAZOLE 40 MG TABLET PO SCH (08:15)
[2017-12-21] MEDS: CEFDINIR 300 MG CAP PO SCH ×2 (08:15→21:57)
[2017-12-21] MEDS: INSULIN ASPART 100 UNIT/ML 1 ML 10 ML VIAL SQ SCH ×4 (08:15→22:07)
[2017-12-21 08:18] LABS: ALT 16 U/L (9-52); AST 21 U/L (14-36); Albumin 4.6 g/dL (3.5-5.0); Alkaline Phosphatase 66 U/L (38-126); Anion Gap 8 mmol/L; Blood Urea Nitrogen 29 mg/dL (7-17); Calcium 10.2 mg/dL (8.4-10.2); Carbon Dioxide 32 mmol/L (22-30); Chloride 97 mmol/L (98-107); Glucose 124 mg/dL (74-99); Potassium 4.9 mmol/L (3.5-5.1); Sodium 137 mmol/L (137-145); Total Bilirubin 0.4 mg/dL (0.2-1.3); Total Protein 7.3 g/dL (6.3-8.2)
[2017-12-21 11:56] LABS: Glucose,Whole Blood 139 mg/dL (75-99)
--- NOTE | 2017-12-21 14:44 | P.PN ---
Subjective Progress Note Date: 12/21/17 Principal diagnosis: Acute COPD exacerbation Mrs. Anaya is a 62-year-old female with a past medical history of COPD, oxygen dependent admitted to the hospital with a chief complaint of increased cough and congestion. She was recently placed on Zithromax by her cable television technician but did not show improvement in her cough and congestion so admitted to the hospital. She is currently on Cefdinir and Solu-Medrol with breathing treatments. Today the patient is sitting up in the bed appears to be no acute distress. On review of systems patient denies having any chest pain or palpitations. No cough or difficulty in breathing. No abdominal pain nausea vomiting or diarrhea. No fever chills or rigors. No dysuria or hematuria. Objective - Vital Signs Vital signs: Vital Signs Temp 97.4 F L 12/21/17 14:21 Pulse 83 12/21/17 14:21 Resp 18 12/21/17 14:21 BP 106/63 12/21/17 14:21 Pulse Ox 100 12/21/17 14:21 Intake & Output 12/20/17 12/21/17 12/21/17 18:59 06:59 18:59 Other: Voiding Method Toilet # Voids 2 2 3 - Exam - Constitutional General appearance: average body habitus - EENT Eyes: EOMI - Neck Neck: no lymphadenopathy - Respiratory Respiratory: bilateral: diminished - Cardiovascular Rhythm: regular Heart sounds: normal: S1, S2 Abnormal Heart Sounds: no S3 Gallop - Gastrointestinal General gastrointestinal: soft, no tenderness - Neurologic Neurologic: focal deficits - Musculoskeletal Musculoskeletal: generalized weakness - Psychiatric Psychiatric: A&O x's 3, appropriate affect, intact judgment & insight - Labs CBC & Chem 7: 12/21/17 07:18 12/21/17 07:18 Labs: Abnormal Lab Results - Last 24 Hours (Table) 12/20/17 12/20/17 12/21/17 Range/Units 16:57 20:32 06:55 WBC (3.8-10.6) k/uL Hct (34.0-46.0) % Chloride (98-107) mmol/L Carbon Dioxide (22-30) mmol/L BUN (7-17) mg/dL Glucose (74-99) mg/dL POC Glucose (mg/dL) 118 H 217 H 139 H (75-99) mg/dL 12/21/17 12/21/17 12/21/17 Range/Units 07:18 07:18 11:51 WBC 19.0 H (3.8-10.6) k/uL Hct 46.8 H (34.0-46.0) % Chloride 97 L (98-107) mmol/L Carbon Dioxide 32 H (22-30) mmol/L BUN 29 H (7-17) mg/dL Glucose 124 H (74-99) mg/dL POC Glucose (mg/dL) 139 H (75-99) mg/dL Assessment and Plan Assessment: ASSESSMENT Acute COPD exacerbation secondary to tracheobronchitis Acute on chronic hypoxic respiratory failure Leukocytosis-secondary to steroids History of arrhythmias History of restless leg syndrome Plan: Continue the patient on IV antibiotics and steroids and breathing treatments. Continue with the rest of her home medication regimen. Further recommendations to follow depending on the progress of the patient.
[2017-12-21 17:10] LABS: Glucose,Whole Blood 117 mg/dL (75-99)
--- NOTE | 2017-12-21 17:26 | P.PN ---
Subjective Progress Note Date: 12/20/17 (late entry note) Principal diagnosis: Acute COPD exacerbation, purulent tracheobronchitis, acute on chronic hypoxic respiratory failure, RLS, history of arrhythmia, protein calorie malnourishment 12/20/2017, patient seen eval examined during the rounds clinically patient has been doing slightly better in terms of breathing but still congested get short of breath on activity and exertion patient is being treated with oral oral antibiotics and breathing treatments tolerating very well patient has been on IV steroids patient Objective - Vital Signs Vital signs: Vital Signs Temp 97.4 F L 12/21/17 14:21 Pulse 85 12/21/17 16:55 Resp 18 12/21/17 16:55 BP 106/63 12/21/17 14:21 Pulse Ox 99 12/21/17 16:42 Intake & Output 12/20/17 12/21/17 12/21/17 18:59 06:59 18:59 Other: Voiding Method Toilet # Voids 2 2 3 - Exam - Constitutional General appearance: average body habitus, cooperative, disheveled, mild distress , thin - EENT Eyes: anicteric sclerae, EOMI, PERRLA, normal appearance ENT: hearing grossly normal, normal oropharynx Ears: bilateral: normal - Neck Carotids: bilateral: upstroke normal Thyroid: negative: normal size - Respiratory Respiratory: bilateral: diminished, fine bilateral rhonchi, wheezing ( Especially during coughing and wheezing), negative: CTA, dullness, rales - Cardiovascular Rhythm: regular Heart sounds: normal: S1, S2 - Gastrointestinal General gastrointestinal: normal bowel sounds - Integumentary Integumentary: normal, normal turgor - Neurologic Neurologic: CNII-XII intact - Musculoskeletal Musculoskeletal: gait normal, generalized weakness, strength equal bilaterally - Psychiatric Psychiatric: A&O x's 3, appropriate affect, intact judgment & insight - Labs CBC & Chem 7: 12/21/17 07:18 12/21/17 07:18 Labs: Abnormal Lab Results - Last 24 Hours (Table) 12/20/17 12/20/17 12/21/17 Range/Units 16:57 20:32 06:55 WBC (3.8-10.6) k/uL Hct (34.0-46.0) % Chloride (98-107) mmol/L Carbon Dioxide (22-30) mmol/L BUN (7-17) mg/dL Glucose (74-99) mg/dL POC Glucose (mg/dL) 118 H 217 H 139 H (75-99) mg/dL 12/21/17 12/21/17 12/21/17 Range/Units 07:18 07:18 11:51 WBC 19.0 H (3.8-10.6) k/uL Hct 46.8 H (34.0-46.0) % Chloride 97 L (98-107) mmol/L Carbon Dioxide 32 H (22-30) mmol/L BUN 29 H (7-17) mg/dL Glucose 124 H (74-99) mg/dL POC Glucose (mg/dL) 139 H (75-99) mg/dL 12/21/17 Range/Units 17:04 WBC (3.8-10.6) k/uL Hct (34.0-46.0) % Chloride (98-107) mmol/L Carbon Dioxide (22-30) mmol/L BUN (7-17) mg/dL Glucose (74-99) mg/dL POC Glucose (mg/dL) 117 H (75-99) mg/dL Assessment and Plan Assessment: Acute exacerbation of COPD Purulent tracheobronchitis Acute on chronic hypoxic respiratory failure 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
--- NOTE | 2017-12-21 17:29 | P.PN ---
Subjective Progress Note Date: 12/21/17 Principal diagnosis: Acute COPD exacerbation, purulent tracheobronchitis, acute on chronic hypoxic respiratory failure, RLS, history of arrhythmia, protein calorie malnourishment 12/21/2017, patient seen eval examined during the rounds slightly better in terms of breathing denies any chest pain some discomfort however is present on deep breathing was severity has been stable, his sputum studies reviewed gram- positive cocci are moderate are growing final ID is pending 12/20/2017, patient seen eval examined during the rounds clinically patient has been doing slightly better in terms of breathing but still congested get short of breath on activity and exertion patient is being treated with oral oral antibiotics and breathing treatments tolerating very well patient has been on IV steroids patient Objective - Vital Signs Vital signs: Vital Signs Temp 97.4 F L 12/21/17 14:21 Pulse 85 12/21/17 16:55 Resp 18 12/21/17 16:55 BP 106/63 12/21/17 14:21 Pulse Ox 99 12/21/17 16:42 Intake & Output 12/20/17 12/21/17 12/21/17 18:59 06:59 18:59 Other: Voiding Method Toilet # Voids 2 2 3 - Exam - Constitutional General appearance: average body habitus, cooperative, disheveled, mild distress , thin - EENT Eyes: anicteric sclerae, EOMI, PERRLA, normal appearance ENT: hearing grossly normal, normal oropharynx Ears: bilateral: normal - Neck Carotids: bilateral: upstroke normal Thyroid: negative: normal size - Respiratory Respiratory: bilateral: diminished, fine bilateral rhonchi, wheezing ( Especially during coughing and wheezing), negative: CTA, dullness, rales - Cardiovascular Rhythm: regular Heart sounds: normal: S1, S2 - Gastrointestinal General gastrointestinal: normal bowel sounds - Integumentary Integumentary: normal, normal turgor - Neurologic Neurologic: CNII-XII intact - Musculoskeletal Musculoskeletal: gait normal, generalized weakness, strength equal bilaterally - Psychiatric Psychiatric: A&O x's 3, appropriate affect, intact judgment & insight - Labs CBC & Chem 7: 12/21/17 07:18 12/21/17 07:18 Labs: Abnormal Lab Results - Last 24 Hours (Table) 12/20/17 12/21/17 12/21/17 Range/Units 20:32 06:55 07:18 WBC 19.0 H (3.8-10.6) k/uL Hct 46.8 H (34.0-46.0) % Chloride (98-107) mmol/L Carbon Dioxide (22-30) mmol/L BUN (7-17) mg/dL Glucose (74-99) mg/dL POC Glucose (mg/dL) 217 H 139 H (75-99) mg/dL 12/21/17 12/21/17 12/21/17 Range/Units 07:18 11:51 17:04 WBC (3.8-10.6) k/uL Hct (34.0-46.0) % Chloride 97 L (98-107) mmol/L Carbon Dioxide 32 H (22-30) mmol/L BUN 29 H (7-17) mg/dL Glucose 124 H (74-99) mg/dL POC Glucose (mg/dL) 139 H 117 H (75-99) mg/dL Assessment and Plan Assessment: Acute exacerbation of COPD Purulent tracheobronchitis Acute on chronic hypoxic respiratory failure 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 Protein calorie malnourishment History of arrhythmia History of RLS Plan: Broad-spectrum antibiotics, Follow-up on sputum studies adjustment antibiotics as per final culture results and report Breathing treatments IV steroids DVT and peptic ulcer disease prophylaxis Accu-Cheks Adding scale insulin for borderline hyperglycemia Increase activity as tolerated We'll follow clinical course closely further recommendations pending send sputum for Gram stain and culture Care plan discussed with the patient at length reviewed laboratory data radiographic studies and care plan Continue supplemental oxygen keep saturation above 90 to 91% Time with Patient: Greater than 30
[2017-12-21 20:31] LABS: Glucose,Whole Blood 227 mg/dL (75-99)
[2017-12-22] MEDS: methylPREDNISolone SOD SUCCI 125 MG/2 ML VIAL IV SCH ×5 (00:31→22:57)
[2017-12-22] MEDS: PANTOPRAZOLE 40 MG TABLET PO SCH (06:32)
[2017-12-22] MEDS: BUDESONIDE 0.5 MG/2 ML NEBU INHALATION SCH ×2 (07:13→19:14)
[2017-12-22] MEDS: FORMOTEROL FUMARATE 20 MCG/2 ML NEBU INHALATION SCH ×2 (07:13→19:14)
[2017-12-22] MEDS: IPRATROPIUM-ALBUTEROL 3 ML NEB INHALATION SCH ×4 (07:13→19:14)
[2017-12-22 07:22] LABS: Glucose,Whole Blood 123 mg/dL (75-99)
[2017-12-22] MEDS: INSULIN ASPART 100 UNIT/ML 1 ML 10 ML VIAL SQ SCH ×4 (07:53→21:57)
[2017-12-22 08:04] LABS: Basophils % (A) 0 %; Eosinophils % (A) 0 %; HCT 42.4 % (34.0-46.0); HGB 13.8 gm/dL (11.4-16.0); Lymphocytes # (A) 1.2 k/uL (1.0-4.8); Lymphocytes % (A) 9 %; MCH 29.6 pg (25.0-35.0); MCHC 32.6 g/dL (31.0-37.0); MCV 90.6 fL (80.0-100.0); Mean Platelet Volume 7.8; Monocytes # (A) 0.5 k/uL (0-1.0); Monocytes % (A) 4 %; Neutrophils # (A) 11.9 k/uL (1.3-7.7); Neutrophils % (A) 86 %; Platelet Count 226 k/uL (150-450); RBC 4.68 m/uL (3.80-5.40); RDW 14.4 % (11.5-15.5); WBC 13.8 k/uL (3.8-10.6)
[2017-12-22 08:15] LABS: Calcium 9.5 mg/dL (8.4-10.2); Potassium 5.5 mmol/L (3.5-5.1)
[2017-12-22] MEDS: CEFDINIR 300 MG CAP PO SCH ×2 (08:57→22:05)
[2017-12-22] MEDS: METOPROLOL TARTRATE 25 MG TAB PO SCH ×2 (08:57→22:04)
[2017-12-22] MEDS: IBUPROFEN 400 MG TAB PO PRN (09:00)
[2017-12-22] MEDS: ALPRAZolam 0.25 MG TAB PO PRN ×3 (09:00→22:04)
[2017-12-22 12:27] LABS: Glucose,Whole Blood 116 mg/dL (75-99)
[2017-12-22 17:08] LABS: Glucose,Whole Blood 152 mg/dL (75-99)
--- NOTE | 2017-12-22 18:03 | P.PN ---
Subjective Progress Note Date: 12/22/17 Principal diagnosis: Acute COPD exacerbation Mrs. Anaya is a 62-year-old female with a past medical history of COPD, oxygen dependent admitted to the hospital with a chief complaint of increased cough and congestion. She was recently placed on Zithromax by her loan processing supervisor but did not show improvement in her cough and congestion so admitted to the hospital. She is currently on Cefdinir and Solu-Medrol with breathing treatments. On 12/22/17 - patient is sitting up in the bed appears to be no acute distress. On review of systems patient denies having any chest pain or palpitations. No cough or difficulty in breathing. No abdominal pain nausea vomiting or diarrhea. No fever chills or rigors. No dysuria or hematuria. Objective - Vital Signs Vital signs: Vital Signs Temp 98.4 F 12/22/17 15:00 Pulse 84 12/22/17 15:37 Resp 18 12/22/17 15:00 BP 103/57 12/22/17 15:00 Pulse Ox 97 12/22/17 15:00 Intake & Output 12/21/17 12/22/17 12/22/17 18:59 06:59 18:59 Other: Voiding Method Toilet Toilet # Voids 3 2 2 - Exam - Constitutional General appearance: average body habitus - EENT Eyes: EOMI - Neck Neck: no lymphadenopathy - Respiratory Respiratory: bilateral: diminished - Cardiovascular Rhythm: regular Heart sounds: normal: S1, S2 Abnormal Heart Sounds: no S3 Gallop - Gastrointestinal General gastrointestinal: soft, no tenderness - Neurologic Neurologic: focal deficits - Musculoskeletal Musculoskeletal: generalized weakness - Psychiatric Psychiatric: A&O x's 3, appropriate affect, intact judgment & insight - Labs CBC & Chem 7: 12/22/17 07:05 12/22/17 07:05 Labs: Abnormal Lab Results - Last 24 Hours (Table) 12/21/17 12/22/17 12/22/17 Range/Units 20:30 07:05 07:05 WBC 13.8 H (3.8-10.6) k/uL Neutrophils # 11.9 H (1.3-7.7) k/uL Potassium 5.5 H (3.5-5.1) mmol/L BUN 29 H (7-17) mg/dL Glucose 125 H (74-99) mg/dL POC Glucose (mg/dL) 227 H (75-99) mg/dL 12/22/17 12/22/17 12/22/17 Range/Units 07:19 12:20 17:02 WBC (3.8-10.6) k/uL Neutrophils # (1.3-7.7) k/uL Potassium (3.5-5.1) mmol/L BUN (7-17) mg/dL Glucose (74-99) mg/dL POC Glucose (mg/dL) 123 H 116 H 152 H (75-99) mg/dL Microbiology - Last 24 Hours (Table) 12/19/17 20:50 Gram Stain - Final Sputum Sputum Culture - Final Assessment and Plan Assessment: ASSESSMENT Acute COPD exacerbation secondary to tracheobronchitis Acute on chronic hypoxic respiratory failure Leukocytosis-secondary to steroids History of arrhythmias History of restless leg syndrome Plan: Continue the patient on antibiotics and steroids and breathing treatments. Sputum cultures - no growth until now. Continue with the rest of her home medication regimen. Further recommendations to follow depending on the progress of the patient.
[2017-12-22 20:59] LABS: Glucose,Whole Blood 121 mg/dL (75-99)
[2017-12-23] MEDS: IBUPROFEN 400 MG TAB PO PRN ×2 (04:17→10:16)
[2017-12-23] MEDS: ALPRAZolam 0.25 MG TAB PO PRN ×3 (04:17→17:20)
[2017-12-23] MEDS: methylPREDNISolone SOD SUCCI 125 MG/2 ML VIAL IV SCH ×3 (05:42→17:24)
[2017-12-23] MEDS: PANTOPRAZOLE 40 MG TABLET PO SCH (06:50)
[2017-12-23 07:30] LABS: Glucose,Whole Blood 124 mg/dL (75-99)
[2017-12-23] MEDS: INSULIN ASPART 100 UNIT/ML 1 ML 10 ML VIAL SQ SCH ×4 (07:35→21:22)
[2017-12-23] MEDS: IPRATROPIUM-ALBUTEROL 3 ML NEB INHALATION SCH ×4 (07:39→20:06)
[2017-12-23] MEDS: FORMOTEROL FUMARATE 20 MCG/2 ML NEBU INHALATION SCH ×2 (07:39→20:06)
[2017-12-23] MEDS: BUDESONIDE 0.5 MG/2 ML NEBU INHALATION SCH ×2 (07:39→20:06)
--- NOTE | 2017-12-23 08:01 | P.PN ---
Subjective Principal diagnosis: COPD exacerbation. This is a 62-year-old white female essentially been for COPD exacerbation. She states that she is clinically improved today. No significant nausea, vomiting or diarrhea is stated. I do appreciate pulmonary input. No voiding difficulties stated Objective - Vital Signs Vital signs: Vital Signs Temp 98.1 F 12/23/17 06:36 Pulse 88 12/23/17 07:42 Resp 20 12/23/17 06:36 BP 122/75 12/23/17 06:36 Pulse Ox 99 12/23/17 06:36 Intake & Output 12/22/17 12/23/17 12/23/17 18:59 06:59 18:59 Intake Total 300 Output Total 500 Balance -200 Intake: Oral 300 Output: Urine 500 Other: Voiding Method Toilet Toilet # Voids 2 2 - Constitutional General appearance: Present: thin - Respiratory Respiratory: bilateral: CTA - Cardiovascular Rhythm: regular Heart sounds: normal: S1, S2 Abnormal Heart Sounds: Absent: S3 Gallop - Gastrointestinal General gastrointestinal: Present: soft. Absent: tenderness - Integumentary Integumentary: Present: normal. Absent: rash - Labs CBC & Chem 7: 12/22/17 07:05 12/22/17 07:05 Labs: Abnormal Lab Results - Last 24 Hours (Table) 12/22/17 12/22/17 12/22/17 Range/Units 07:05 07:05 12:20 WBC 13.8 H (3.8-10.6) k/uL Neutrophils # 11.9 H (1.3-7.7) k/uL Potassium 5.5 H (3.5-5.1) mmol/L BUN 29 H (7-17) mg/dL Glucose 125 H (74-99) mg/dL POC Glucose (mg/dL) 116 H (75-99) mg/dL 12/22/17 12/22/17 12/23/17 Range/Units 17:02 20:56 07:20 WBC (3.8-10.6) k/uL Neutrophils # (1.3-7.7) k/uL Potassium (3.5-5.1) mmol/L BUN (7-17) mg/dL Glucose (74-99) mg/dL POC Glucose (mg/dL) 152 H 121 H 124 H (75-99) mg/dL Microbiology - Last 24 Hours (Table) 12/19/17 20:50 Gram Stain - Final Sputum Sputum Culture - Final Assessment and Plan (1) Acute exacerbation of chronic obstructive airways disease Current Visit: Yes Status: Acute Code(s): J44.1 - CHRONIC OBSTRUCTIVE PULMONARY DISEASE W (ACUTE) EXACERBATION SNOMED Code(s): 668980603 (2) Debility Current Visit: No Status: Acute Code(s): R53.81 - OTHER MALAISE SNOMED Code(s): 74702464 Plan: Continue current regimen of treatment. Anticipate discharge in next 24-48 hours with her clinical improvement. Long steroid taper most likely will be necessary. See orders otherwise.
[2017-12-23] MEDS: METOPROLOL TARTRATE 25 MG TAB PO SCH ×2 (08:45→21:22)
[2017-12-23] MEDS: CEFDINIR 300 MG CAP PO SCH ×2 (08:46→21:22)
[2017-12-23 10:40] LABS: Basophils % (A) 0 %; Eosinophils % (A) 0 %; HCT 43.4 % (34.0-46.0); HGB 13.9 gm/dL (11.4-16.0); Lymphocytes # (A) 0.7 k/uL (1.0-4.8); Lymphocytes % (A) 6 %; MCH 29.3 pg (25.0-35.0); MCHC 32.1 g/dL (31.0-37.0); MCV 91.3 fL (80.0-100.0); Monocytes # (A) 0.4 k/uL (0-1.0); Monocytes % (A) 3 %; Neutrophils # (A) 10.4 k/uL (1.3-7.7); Neutrophils % (A) 90 %; Platelet Count 233 k/uL (150-450); RBC 4.75 m/uL (3.80-5.40); RDW 14.3 % (11.5-15.5); WBC 11.6 k/uL (3.8-10.6)
[2017-12-23 10:58] LABS: Calcium 9.2 mg/dL (8.4-10.2); Potassium 5.1 mmol/L (3.5-5.1)
[2017-12-23 11:40] LABS: Glucose,Whole Blood 130 mg/dL (75-99)
[2017-12-23 17:44] LABS: Glucose,Whole Blood 137 mg/dL (75-99)
--- NOTE | 2017-12-23 18:28 | PN ---
PROGRESS NOTE DATE OF SERVICE: 12/22/2017. HISTORY: Ms. Anaya was seen, evaluated and examined. Still having ongoing cough and congestion, severity has improved. The patient remains on steroids and breathing treatments. Tolerating fairly well. No obvious complications were noted. She has been able to get up and move around. Still has some dyspnea on exertion. Her labs are reviewed. MEDICATIONS: Reviewed. PHYSICAL EXAMINATION: Last set of vitals include blood pressure is 122/75, respiratory rate 20, pulse 62, temperature 98, saturation 99% on 2 L oxygen. HEENT atraumatic, normocephalic. Oropharynx clear. Nasopharyngeal opening is present. Neck is supple without palpable jugular venous distention or bruit. Lungs bilateral air entry is present without significant rales, rhonchi or rub. Heart regular rate and rhythm. Abdomen is soft. Neurological exam shows awake and alert. LABS: Reviewed. Sputum for Gram stain, no growth so far. IMPRESSION: 1. Acute chronic obstructive pulmonary disease exacerbation. 2. Tracheobronchitis, purulent in nature. 3. Generalized anxiety disorder. 4. Chronic hypoxic respiratory failure. PLAN: Continue breathing treatments, steroids, antibiotics. Hopefully in next 24 to 48 hours should be ready for discharge. Follow clinical course closely. Further recommendations pending. Plan of care as per clinical response of the patient. MMODL / IJN: [id number] /
--- NOTE | 2017-12-23 18:34 | PN ---
PROGRESS NOTE DATE OF SERVICE: 12/23/2017. HISTORY: Ms. Rohit Anaya is a 62-year-old female seen, evaluated, and examined during rounds. Clinically, she is doing better. She remains on IV steroids, breathing treatments, and antibiotics. Tolerating very well. Cough and congestion has improved. She is being planned for possible discharge in the next 24 hours. LABS: From today reviewed. White cell count 11,600. Chemistry revealed sodium is 135, BUN and creatinine 30 and 1.04, slight elevation in BUN likely related to steroids. Would recommend at this time of discharge patient can be switched to Medrol Dosepak, in the meantime we will continue current course of therapy. EXAMINATION: Her vitals include blood pressure 110/68, respiratory rate 18, pulse 88, temp is 66, temperature is 98.5, oxygen 98% 2 Lf oxygen. HEENT unremarkable. Neck supple without lymphadenopathy, jugular venous distention. Lungs bilateral poor air entry is present. Heart regular rate rhythm. S1, S2 audible. Abdomen soft. No rebound or rigidity. There are +1 pedal pulses. Neurological examination otherwise awake and alert. IMPRESSION: 1. Acute on chronic hypoxic respiratory failure. 2. Severe chronic obstructive pulmonary disease with acute exacerbation. 3. Tracheobronchitis. 4. Generalized anxiety disorder. PLAN: Continue steroids, breathing treatment and antibiotics as mentioned above. At the time of discharge, patient can be switched to Medrol Dosepak. I agree with discharge planning for possibly tomorrow to follow up on outpatient setting. The patient already had a followup appointment in January. We will re-evaluate her in outpatient setting. MMODL / IJN: [id number] /
[2017-12-23 20:34] LABS: Glucose,Whole Blood 220 mg/dL (75-99)
[2017-12-23 22:57] VITALS: RESP 14
[2017-12-24] MEDS: methylPREDNISolone SOD SUCCI 125 MG/2 ML VIAL IV SCH ×3 (00:39→13:00)
[2017-12-24] MEDS: ALPRAZolam 0.25 MG TAB PO PRN ×2 (00:42→09:22)
[2017-12-24] MEDS: PANTOPRAZOLE 40 MG TABLET PO SCH (06:17)
[2017-12-24 06:21] VITALS: BP 118/71; TEMP 98.1
[2017-12-24 06:53] LABS: Glucose,Whole Blood 116 mg/dL (75-99)
[2017-12-24] MEDS: BUDESONIDE 0.5 MG/2 ML NEBU INHALATION SCH (07:12)
[2017-12-24] MEDS: IPRATROPIUM-ALBUTEROL 3 ML NEB INHALATION SCH ×2 (07:12→11:45)
[2017-12-24] MEDS: FORMOTEROL FUMARATE 20 MCG/2 ML NEBU INHALATION SCH (07:13)
[2017-12-24] MEDS: INSULIN ASPART 100 UNIT/ML 1 ML 10 ML VIAL SQ SCH ×2 (08:38→12:21)
[2017-12-24] MEDS: CEFDINIR 300 MG CAP PO SCH (09:19)
[2017-12-24] MEDS: METOPROLOL TARTRATE 25 MG TAB PO SCH (09:19)
--- NOTE | 2017-12-24 10:26 | P.PN ---
Subjective Progress Note Date: 12/24/17 Principal diagnosis: Acute COPD exacerbation, purulent tracheobronchitis, acute on chronic hypoxic respiratory failure, RLS, history of arrhythmia, protein calorie malnourishment 12/24/2017, patient seen eval reexamined during the rounds she is sitting upright on the bed breathing comfortably on supplemental oxygen cough congestion shortness breath is significantly improved overall from pulmonary standpoint patient can be discharged home recommended to continue oxygen continue breathing treatment, patient can finish oral antibiotics as per primary services prescription for Medrol Dosepak has been provided we'll recommend follow-up in outpatient setting 12/21/2017, patient seen eval examined during the rounds slightly better in terms of breathing denies any chest pain some discomfort however is present on deep breathing was severity has been stable, his sputum studies reviewed gram- positive cocci are moderate are growing final ID is pending 12/20/2017, patient seen eval examined during the rounds clinically patient has been doing slightly better in terms of breathing but still congested get short of breath on activity and exertion patient is being treated with oral oral antibiotics and breathing treatments tolerating very well patient has been on IV steroids patient Objective - Vital Signs Vital signs: Vital Signs Temp 98.1 F 12/24/17 06:21 Pulse 72 12/24/17 07:42 Resp 14 12/24/17 06:21 BP 118/71 12/24/17 06:21 Pulse Ox 98 12/24/17 06:21 Intake & Output 12/23/17 12/24/17 12/24/17 18:59 06:59 18:59 Other: # Voids 2 1 - Exam - Constitutional General appearance: average body habitus, cooperative, disheveled, mild distress , thin - EENT Eyes: anicteric sclerae, EOMI, PERRLA, normal appearance ENT: hearing grossly normal, normal oropharynx Ears: bilateral: normal - Neck Carotids: bilateral: upstroke normal Thyroid: negative: normal size - Respiratory Respiratory: bilateral: diminished, fine bilateral rhonchi, wheezing ( Especially during coughing and wheezing), improved exam compared to previous - Cardiovascular Rhythm: regular Heart sounds: normal: S1, S2 - Gastrointestinal General gastrointestinal: normal bowel sounds - Integumentary Integumentary: normal, normal turgor - Neurologic Neurologic: CNII-XII intact - Musculoskeletal Musculoskeletal: gait normal, generalized weakness, strength equal bilaterally - Psychiatric Psychiatric: A&O x's 3, appropriate affect, intact judgment & insight - Labs CBC & Chem 7: 12/23/17 09:58 12/23/17 09:58 Labs: Abnormal Lab Results - Last 24 Hours (Table) 12/23/17 12/23/17 12/23/17 Range/Units 09:58 09:58 11:29 WBC 11.6 H (3.8-10.6) k/uL Neutrophils # 10.4 H (1.3-7.7) k/uL Lymphocytes # 0.7 L (1.0-4.8) k/uL Sodium 135 L (137-145) mmol/L Chloride 95 L (98-107) mmol/L BUN 30 H (7-17) mg/dL Glucose 174 H (74-99) mg/dL POC Glucose (mg/dL) 130 H (75-99) mg/dL 12/23/17 12/23/17 12/24/17 Range/Units 17:19 20:32 06:50 WBC (3.8-10.6) k/uL Neutrophils # (1.3-7.7) k/uL Lymphocytes # (1.0-4.8) k/uL Sodium (137-145) mmol/L Chloride (98-107) mmol/L BUN (7-17) mg/dL Glucose (74-99) mg/dL POC Glucose (mg/dL) 137 H 220 H 116 H (75-99) mg/dL Assessment and Plan Assessment: Acute exacerbation of COPD Purulent tracheobronchitis Acute on chronic hypoxic respiratory failure 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
[2017-12-24 11:39] LABS: Glucose,Whole Blood 135 mg/dL (75-99)
[2017-12-24 12:07] VITALS: PULSE 80
--- NOTE | 2017-12-24 13:18 | P.DS ---
Providers Date of admission: 12/18/17 14:58 Attending physician: Kurtis Piña Consults: 12/18/17 14:58 Consult Physician Routine Consulting Provider: Cayden Huang Consult Reason/Comments: dyspnea Do you want consulting provider notified?: Yes Primary care physician: Kurtis Piña - Discharge Diagnosis(es) (1) Acute exacerbation of chronic obstructive airways disease Current Visit: Yes Status: Acute (2) Debility Current Visit: No Status: Acute Plan - Discharge Summary Discharge Rx Participant: Yes New Discharge Prescriptions: New Cefdinir [Omnicef] 300 mg PO BID #10 cap Continue Budesonide [Pulmicort] 0.5 mg INHALATION RT-BID nebu Arformoterol Tartrate [Brovana] 15 mcg INHALATION RT-BID Albuterol Inhaler [Ventolin Hfa Inhaler] 2 puff INHALATION RT-QID PRN PRN Reason: Shortness Of Breath Metoprolol Tartrate 25 mg PO BID Pantoprazole [Protonix] 40 mg PO AC-BRKFST #30 tablet. Ipratropium-Albuterol Nebulize [Duoneb 0.5 mg-3 mg/3 ml Soln] 3 ml INHALATION RT-QID CHLORPHEN-HYDROcod 8-10mg/5ml [Tussionex] 5 ml PO Q12H PRN #100 ml PRN Reason: Cough Ibuprofen [Motrin] 400 mg PO Q6HR PRN tab PRN Reason: Mild Pain Or Fever > 100.5 Mag Hydrox/Al Hydrox/Simeth [Maalox] 15 ml PO Q6HR PRN cup PRN Reason: Indigestion ALPRAZolam [Xanax] 0.25 mg PO QID #120 tablet predniSONE 5 mg PO DAILY rOPINIRole HCL [Requip] 0.5 mg PO HS methylPREDNISolone Dose Pack [Medrol Dose Pack] 4 mg PO DIRECTED #21 package Discontinued Azithromycin [Zithromax Z-pack] See Taper PO DIRECTED No Action Cefdinir [Omnicef] 300 mg PO BID #14 cap Discharge Medication List Budesonide [Pulmicort] 0.5 mg INHALATION RT-BID nebu 12/17/14 [Rx] Arformoterol Tartrate [Brovana] 15 mcg INHALATION RT-BID 04/14/15 [History] Albuterol Inhaler [Ventolin Hfa Inhaler] 2 puff INHALATION RT-QID PRN 09/03/16 [ History] Metoprolol Tartrate 25 mg PO BID 09/03/16 [History] Pantoprazole [Protonix] 40 mg PO AC-BRKFST #30 tablet. 06/15/17 [Rx] Ipratropium-Albuterol Nebulize [Duoneb 0.5 mg-3 mg/3 ml Soln] 3 ml INHALATION RT -QID 06/20/17 [History] ALPRAZolam [Xanax] 0.25 mg PO QID #120 tablet 07/04/17 [Rx] CHLORPHEN-HYDROcod 8-10mg/5ml [Tussionex] 5 ml PO Q12H PRN #100 ml 07/04/17 [Rx] Cefdinir [Omnicef] 300 mg PO BID #14 cap 07/04/17 [Rx] Ibuprofen [Motrin] 400 mg PO Q6HR PRN tab 07/04/17 [Rx] Mag Hydrox/Al Hydrox/Simeth [Maalox] 15 ml PO Q6HR PRN cup 07/04/17 [Rx] predniSONE 5 mg PO DAILY 12/18/17 [History] rOPINIRole HCL [Requip] 0.5 mg PO HS 12/18/17 [History] Cefdinir [Omnicef] 300 mg PO BID #10 cap 12/24/17 [Rx] methylPREDNISolone Dose Pack [Medrol Dose Pack] 4 mg PO DIRECTED #21 package 12/24/17 [Rx] Follow up Appointment(s)/Referral(s): Kurtis Piña MD [Primary Care Provider] - 1-2 days Cayden Huang MD [Family Provider] - 01/02/18 2:45 pm Patient Instructions/Handouts: Chronic Lung Disease and Infection Prevention ( ED) Activity/Diet/Wound Care/Special Instructions: NO smoking, cessation information provided. Activity as tolerated. Continue Home oxygen via nasal cannula.
--- NOTE | 2017-12-24 13:21 | P.DS ---
Providers Date of admission: 12/18/17 14:58 Attending physician: Kurtis Piña Consults: 12/18/17 14:58 Consult Physician Routine Consulting Provider: Cayden Huang Consult Reason/Comments: dyspnea Do you want consulting provider notified?: Yes Primary care physician: Kurtis Piña - Discharge Diagnosis(es) (1) Acute exacerbation of chronic obstructive airways disease Current Visit: Yes Status: Acute (2) Debility Current Visit: No Status: Acute Hospital Course: This is a discharge summary 62-year-old white female centimeter for exacerbation of COPD. Unfortunately, she has fairly extensive COPD and was admitted for extended period time. The patient was stabilized with appropriate pulmonology treatment and consultation. The patient is now discharged in stable but guarded condition to follow-up with me in approximate 5 days Patient Condition at Discharge: Fair Plan - Discharge Summary Discharge Rx Participant: Yes New Discharge Prescriptions: New Cefdinir [Omnicef] 300 mg PO BID #10 cap Continue Budesonide [Pulmicort] 0.5 mg INHALATION RT-BID nebu Arformoterol Tartrate [Brovana] 15 mcg INHALATION RT-BID Albuterol Inhaler [Ventolin Hfa Inhaler] 2 puff INHALATION RT-QID PRN PRN Reason: Shortness Of Breath Metoprolol Tartrate 25 mg PO BID Pantoprazole [Protonix] 40 mg PO AC-BRKFST #30 tablet. Ipratropium-Albuterol Nebulize [Duoneb 0.5 mg-3 mg/3 ml Soln] 3 ml INHALATION RT-QID CHLORPHEN-HYDROcod 8-10mg/5ml [Tussionex] 5 ml PO Q12H PRN #100 ml PRN Reason: Cough Ibuprofen [Motrin] 400 mg PO Q6HR PRN tab PRN Reason: Mild Pain Or Fever > 100.5 Mag Hydrox/Al Hydrox/Simeth [Maalox] 15 ml PO Q6HR PRN cup PRN Reason: Indigestion ALPRAZolam [Xanax] 0.25 mg PO QID #120 tablet predniSONE 5 mg PO DAILY rOPINIRole HCL [Requip] 0.5 mg PO HS methylPREDNISolone Dose Pack [Medrol Dose Pack] 4 mg PO DIRECTED #21 package Discontinued Azithromycin [Zithromax Z-pack] See Taper PO DIRECTED No Action Cefdinir [Omnicef] 300 mg PO BID #14 cap Discharge Medication List Budesonide [Pulmicort] 0.5 mg INHALATION RT-BID nebu 12/17/14 [Rx] Arformoterol Tartrate [Brovana] 15 mcg INHALATION RT-BID 04/14/15 [History] Albuterol Inhaler [Ventolin Hfa Inhaler] 2 puff INHALATION RT-QID PRN 09/03/16 [ History] Metoprolol Tartrate 25 mg PO BID 09/03/16 [History] Pantoprazole [Protonix] 40 mg PO AC-BRKFST #30 tablet. 06/15/17 [Rx] Ipratropium-Albuterol Nebulize [Duoneb 0.5 mg-3 mg/3 ml Soln] 3 ml INHALATION RT -QID 06/20/17 [History] ALPRAZolam [Xanax] 0.25 mg PO QID #120 tablet 07/04/17 [Rx] CHLORPHEN-HYDROcod 8-10mg/5ml [Tussionex] 5 ml PO Q12H PRN #100 ml 07/04/17 [Rx] Cefdinir [Omnicef] 300 mg PO BID #14 cap 07/04/17 [Rx] Ibuprofen [Motrin] 400 mg PO Q6HR PRN tab 07/04/17 [Rx] Mag Hydrox/Al Hydrox/Simeth [Maalox] 15 ml PO Q6HR PRN cup 07/04/17 [Rx] predniSONE 5 mg PO DAILY 12/18/17 [History] rOPINIRole HCL [Requip] 0.5 mg PO HS 12/18/17 [History] Cefdinir [Omnicef] 300 mg PO BID #10 cap 12/24/17 [Rx] methylPREDNISolone Dose Pack [Medrol Dose Pack] 4 mg PO DIRECTED #21 package 12/24/17 [Rx] Follow up Appointment(s)/Referral(s): Kurtis Piña MD [Primary Care Provider] - 1-2 days Cayden Huang MD [Family Provider] - 01/02/18 2:45 pm Patient Instructions/Handouts: Chronic Lung Disease and Infection Prevention ( ED) Activity/Diet/Wound Care/Special Instructions: NO smoking, cessation information provided. Activity as tolerated. Continue Home oxygen via nasal cannula.
== END 2017-12-24 14:30 | disposition home or self-care (01) | DRG 190 ==
LOC: EC 12:21 → 4MS4W 14:58
PROVIDERS: ADMIT Family Medicine; ATTEND Family Medicine
DX: J44.0 Chronic obstructive pulmonary disease with (acute) lower respiratory infection (principal); J96.21 Acute and chronic respiratory failure with hypoxia; E46 Unspecified protein-calorie malnutrition; J20.9 Acute bronchitis, unspecified; J44.1 Chronic obstructive pulmonary disease with (acute) exacerbation; G25.81 Restless legs syndrome; R73.9 Hyperglycemia, unspecified; T38.0X5A Adverse effect of glucocorticoids and synthetic analogues, initial encounter; F41.1 Generalized anxiety disorder; M19.91 Primary osteoarthritis, unspecified site; R53.81 Other malaise; Z99.81 Dependence on supplemental oxygen; Z79.52 Long term (current) use of systemic steroids; Z79.2 Long term (current) use of antibiotics; Z79.51 Long term (current) use of inhaled steroids; Z79.899 Other long term (current) drug therapy; Z87.440 Personal history of urinary (tract) infections; Z87.81 Personal history of (healed) traumatic fracture; Z87.891 Personal history of nicotine dependence; Z87.01 Personal history of pneumonia (recurrent); Z88.1 Allergy status to other antibiotic agents; Z88.0 Allergy status to penicillin; Z88.8 Allergy status to other drugs, medicaments and biological substances; Z80.52 Family history of malignant neoplasm of bladder; Z80.1 Family history of malignant neoplasm of trachea, bronchus and lung; Z80.8 Family history of malignant neoplasm of other organs or systems
CPT/HCPCS: 36415; 71046; 80048; 80053; 83036; 83735; 85025; 85027; 87070; 87205; 93005; 94640; 94760; 96374; 96375; 99285

== ENCOUNTER → 2018-01-07 | Outpatient (CLI) | payer BC ==
[2018-01-07 11:56] VITALS: BP 120/58; PULSE 60; TEMP 97.3; BMI 24.1
--- NOTE | 2018-01-07 12:35 | P.HPOB ---
History of Present Illness H&P Date: 01/07/18 Chief Complaint: The patient is here for her routine gynecologic exam. This is a 62-year-old G2 PII within LMP of 1999. The patient states she has noticed a breast lump in the left breast since early November. It has also been painful in this area. She describes the mass as long and thin along the bottom of the left breast. She had a screening mammogram on 12/05/2017 and this was benign. Her primary care physician ordered a left breast ultrasound which is scheduled for tomorrow. Review of Systems She is getting about 12 pounds over the last year. She denies respiratory, cardiac and G.I. problems. She denies maltreatment or problems with falling. : she denies any significant problems with urinary leakage. Past Medical History Past Medical History: COPD (Requiring oxygen and chronic steroid use), Osteoarthritis (OA), Pneumonia Additional Past Medical History / Comment(s): HOME 02 2 LITERS N/C, EDENTULOUS, previous spine fracture did pt no brace worn. 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 History of Any Multi-Drug Resistant Organisms: None Reported Past Surgical History: Appendectomy Additional Past Surgical History / Comment(s): LASER EYE SX, lt breast bx-neg. Previous colonoscopy done prior to 1999. Past Anesthesia/Blood Transfusion Reactions: No Reported Reaction Past Psychological History: Anxiety Additional Psychological History / Comment(s): PT LIVES WITH HER DAUGHER IN A SINGLE LEVEL HOME THAT HAS 4 PORCH STEPS AND A BASEMENT W/12 STEPS. NO OUTSIDE SERVICES RECIEVED. HAS HOME O2 AND A NEBULIZER. PT IS INDEPENDANT WHEN UP. 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 Smoking Status: Former smoker (Quit in 2014) Past Alcohol Use History: None Reported Additional Past Alcohol Use History / Comment(s): STARTED SMOKING AROUND 1976- 2 PPD, QUIT . Past Drug Use History: None Reported Additional History: She has been twice. 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 - Past Family History Mother Family Medical History: Cancer (breast/BLADDER CA) Father Family Medical History: Cancer (Lung), Myocardial Infarction ([place]) Additional Family Medical History / Comment(s): BRAIN TUMORS. Grandfather had colon cancer. Medications and Allergies Home Medications Medication Instructions Recorded Confirmed Type Budesonide [Pulmicort] 0.5 mg INHALATION RT-BID nebu 12/17/14 01/07/18 Rx Arformoterol Tartrate [Brovana] 15 mcg INHALATION RT-BID 04/14/15 01/07/18 History Albuterol Inhaler [Ventolin Hfa 2 puff INHALATION RT-QID PRN 09/03/16 01/07/18 History Inhaler] Metoprolol Tartrate 25 mg PO BID 09/03/16 01/07/18 History Pantoprazole [Protonix] 40 mg PO AC-BRKFST #30 tablet. 06/15/17 01/07/18 Rx Ipratropium-Albuterol Nebulize 3 ml INHALATION RT-QID 06/20/17 01/07/18 History [Duoneb 0.5 mg-3 mg/3 ml Soln] ALPRAZolam [Xanax] 0.25 mg PO QID #120 tablet 07/04/17 01/07/18 Rx predniSONE 5 mg PO DAILY 12/18/17 01/07/18 History rOPINIRole HCL [Requip] 0.5 mg PO HS 12/18/17 01/07/18 History Allergies Allergy/AdvReac Type Severity Reaction Status Date / Time levofloxacin [From Levaquin] Allergy Rash/Hives Verified 01/07/18 11:52 montelukast [From Singulair] Allergy Itching Verified 01/07/18 11:52 Penicillins Allergy Rash/Hives Verified 01/07/18 11:52 Exam Vital Signs Temp Pulse BP 01/07/18 11:53 97.3 F L 60 120/58 Intake and Output 01/06/18 01/07/18 01/07/18 22:59 06:59 14:59 Other: Weight 58.06 kg Height 5'1", weight 128 pounds, BMI 24.2. This is a well-developed well-nourished white female who is alert and oriented times 3 in no acute distress. The patient is using oxygen by nasal cannula. HEENT: Within normal limits. NECK: Supple without mass or thyromegaly. CHEST AND LUNGS: Clear to auscultation. HEART: Regular rate and rhythm. BREASTS: there is a tubular firm area along the bottom of the left breast measuring approximately 1 cm x 10 cm. This is slightly tender. This seems to disappear when the breast tissue is spread out and elevated. This is the area that the patient has been feeling during the past one month. She has an ultrasound scheduled for this tomorrow as ordered by her primary care physician. There are no other palpable breast masses there is mild bilateral tenderness in the lower breasts. There is no nipple discharge. BACK: Negative for CVA tenderness. ABDOMEN: Soft, nontender, without palpable masses. PELVIC EXAM: Normal external genitalia with moderate atrophy. Cervix and vagina appear normal with moderate atrophy. There is no unusual discharge. There is no evidence of prolapse. The uterus is midposition, nongravid size and nontender. There are no palpable adnexal masses or tenderness. RECTAL EXAM: rectovaginal exam is negative for mass or tenderness and is negative for occult blood. EXTREMITIES: Nontender. IMPRESSION: 1. 62-year-old menopausal female with normal gynecologic exam. 2. Tubular thickening along the bottom of the left breast which disappears with breast repositioning. This probably represents normal structural breast tissue which is seems more prominent when she is upright. Benign mammogram . 3. History of COPD requiring oxygen. PLAN: 1. Pap smear was deferred until she had a normal one last year. 2. Self breast awareness was discussed with the patient. 3. The patient is scheduled for a left breast ultrasound as ordered by her primary care physician. 4. Osteoporosis prevention was discussed 5. She did get her flu shot this fall. 6. She will return in one year.
== END | disposition home or self-care (01) ==
LOC: WWCWWP 11:07
PROVIDERS: ATTEND Obstetrics & Gynecology
DX: Z53.9 Procedure and treatment not carried out, unspecified reason (principal)

== ENCOUNTER → 2018-01-08 | Outpatient (CLI) | payer BC ==
--- NOTE | 2018-01-08 09:16 | USB ---
Reason for exam: clinical finding. History: Patient is postmenopausal. Family history of breast cancer in mother. Excisional biopsy of the left breast. Indicated problem(s): lump or thickening in the left breast. Physical Findings: Nurse Summary: prominent bilateral ridge, all soft, nodular, movable (nurse ts). US Breast LT Technologist: Cinthia Bennett, RT (R)(M) Left complete breast ultrasound includes all four quadrants, the retroareolar region and axilla. Finding demonstrates no cystic or solid lesion seen. These results were verbally communicated with the patient and result sheet given to the patient on 01/08/18. ASSESSMENT: Negative, BI-RAD 1 RECOMMENDATION: Return to routine screening mammogram schedule for both breasts. Back on schedule for November 2018. Manage on a clinical basis with regard to lumps.
== END ==
LOC: RADUSWWP 08:10
PROVIDERS: ATTEND Family Medicine
DX: N64.4 Mastodynia (principal)

== ENCOUNTER 2018-02-15 15:47 | Inpatient (IN) | payer BC ==
--- NOTE | 2018-02-15 16:19 | ED ---
General Adult HPI - General Chief complaint: Shortness of Breath Stated complaint: TOD Source: patient Mode of arrival: wheelchair Limitations: no limitations - History of Present Illness Initial comments: Dictation was produced using [employer] dictation software. please excuse any grammatical, word or spelling errors. Chief Complaint: 62-year-old female past medical history of COPD presents with dyspnea. History of Present Illness: Patient is 62-year-old female with extensive history of COPD presents with dyspnea. Patient states she was just discharged from the hospital. She states that since discharge she still has been having persistent shortness of breath. Review shows the last time patient was admitted to the hospital was November of this year. Patient has extensive history of COPD. She does have good outpatient follow-up with business liaison manager. Patient states he been trying to taper her certain medications however she feels as though her symptoms are increasing. The ROS documented in this emergency department record has been reviewed and confirmed by me. Those systems with pertinent positive or negative responses have been documented in the HPI. All other systems are other negative and/or noncontributory. - Related Data Home Medications Medication Instructions Recorded Confirmed Arformoterol Tartrate [Brovana] 15 mcg INHALATION RT-BID 04/14/15 02/15/18 Albuterol Inhaler [Ventolin Hfa 2 puff INHALATION RT-QID PRN 09/03/16 02/15/18 Inhaler] Metoprolol Tartrate 25 mg PO BID 09/03/16 02/15/18 Ipratropium-Albuterol Nebulize 3 ml INHALATION RT-QID 06/20/17 02/15/18 [Duoneb 0.5 mg-3 mg/3 ml Soln] rOPINIRole HCL [Requip] 0.5 mg PO HS 12/18/17 02/15/18 Cholecalciferol [Vitamin D3] 1,000 unit PO DAILY 02/15/18 02/15/18 Magnesium 200 mg PO DAILY 02/15/18 02/15/18 Zinc 50 mg PO DAILY 02/15/18 02/15/18 predniSONE 20 mg PO DAILY 02/15/18 02/15/18 Previous Rx's Medication Instructions Recorded Budesonide [Pulmicort] 0.5 mg INHALATION RT-BID nebu 12/17/14 Pantoprazole [Protonix] 40 mg PO -BRKFST #30 tablet. 06/15/17 ALPRAZolam [Xanax] 0.25 mg PO QID #120 tablet 07/04/17 Allergies Allergy/AdvReac Type Severity Reaction Status Date / Time levofloxacin [From Levaquin] Allergy Rash/Hives Verified 02/15/18 16:28 montelukast [From Singulair] Allergy Itching Verified 02/15/18 16:28 Penicillins Allergy Rash/Hives Verified 02/15/18 16:28 Review of Systems ROS Statement: Those systems with pertinent positive or pertinent negative responses have been documented in the HPI. ROS Other: All systems not noted in ROS Statement are negative. Past Medical History Past Medical History: COPD, Osteoarthritis (OA), Pneumonia Additional Past Medical History / Comment(s): HOME 02 2 LITERS N/C, EDENTULOUS, previous spine fracture did pt no brace worn. 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 History of Any Multi-Drug Resistant Organisms: None Reported Past Surgical History: Appendectomy Additional Past Surgical History / Comment(s): LASER EYE SX, lt breast bx-neg. Previous colonoscopy done prior to 1999. Past Anesthesia/Blood Transfusion Reactions: No Reported Reaction Past Psychological History: Anxiety Smoking Status: Former smoker Past Alcohol Use History: None Reported Past Drug Use History: None Reported - Past Family History Mother Family Medical History: Cancer (breast/BLADDER CA) Additional Family Medical History / Comment(s): breast/BLADDER CA Father Family Medical History: Cancer (Lung), Myocardial Infarction ([place]) Additional Family Medical History / Comment(s): BRAIN TUMORS. Grandfather had colon cancer. General Exam - General Exam Comments Initial Comments: PHYSICAL EXAM: General Impression: Alert and oriented x3, not in acute distress HEENT: Normocephalic atraumatic, extra-ocular movements intact, pupils equal and reactive to light bilaterally, mucous membranes moist. Cardiovascular: Heart regular rate and rhythm, S1&S2 audible, no murmurs, rubs or gallops Chest: Diminished lung sounds bilaterally Abdomen: Bowel sounds present, abdomen soft, non-tender, non-distended, no organomegaly Musculoskeletal: Pulses present and equal in all extremities, no peripheral edema Motor: Power 5/5 bilaterally, no focal deficits noted Neurological: CN II-XII grossly intact, no focal motor or sensory deficits noted Skin: Intact with no visualized rashes Psych: Normal affect and mood Limitations: no limitations Course Vital Signs 02/15/18 02/15/18 15:57 16:36 Temperature 98.3 F Pulse Rate 121 H Respiratory 16 18 Rate Blood Pressure 80/52 O2 Sat by Pulse 95 Oximetry Medical Decision Making - Medical Decision Making ED course: 62-year-old female presents with persistent dyspnea. She has extensive history of COPD. Bilateral lower extremities are benign. No clinical suspicion of pulmonary embolus. No pain complaints. On arrival shows heart rate of 121, blood pressure 80/52. Laboratory evaluation obtained. Patient has mild leukocytosis however it's around her baseline. Rest of CBC is unremarkable. Coag panel unremarkable. Blood gas shows pH of 7.44. PCO2 is within normal limits. Bicarb is 30. Metabolic panel shows findings within acceptable limits. Cardiac enzymes are negative. Chest x-ray shows chronic changes no new infiltrate. X-ray appears to be stable and baseline for patient. Patient given steroids, Zithromax and breathing treatment. Patient states she feels short of breath continuously. Patient's symptoms likely secondary to acute on chronic COPD. She does not appear to be in significant respiratory distress distress at rest. However she does exert herself she does get fairly winded. This is all likely secondary severe COPD. EKG Interpretation: A 12 lead EKG was obtained. It was interpreted by myself and attending physician. There is a P wave before every QRS complex. Rate is 119. Rhythm is sinus tachycardia, SD interval 114, QS 70, QTC. QT is not prolonged. No ST segment depression or elevation. . Overall, this EKG is unremarkable - Lab Data Result diagrams: 02/15/18 16:32 02/15/18 16:32 Lab Results 02/15/18 02/15/18 02/15/18 Range/Units 16:32 16:32 16:32 WBC 11.5 H (3.8-10.6) k/uL RBC 4.42 (3.80-5.40) m/uL Hgb 13.2 (11.4-16.0) gm/dL Hct 40.1 (34.0-46.0) % MCV 90.8 (80.0-100.0) fL MCH 29.9 (25.0-35.0) pg MCHC 33.0 (31.0-37.0) g/dL RDW 15.0 (11.5-15.5) % Plt Count 213 (150-450) k/uL Neutrophils % 82 % Lymphocytes % 12 % Monocytes % 4 % Eosinophils % 1 % Basophils % 0 % Neutrophils # 9.5 H (1.3-7.7) k/uL Lymphocytes # 1.4 (1.0-4.8) k/uL Monocytes # 0.5 (0-1.0) k/uL Eosinophils # 0.1 (0-0.7) k/uL Basophils # 0.0 (0-0.2) k/uL PT (9.0-12.0) sec INR (<1.2) APTT (22.0-30.0) sec VBG pH (7.31-7.41) VBG pCO2 (37-51) mmHg VBG HCO3 (24-28) mmol/L Sodium 138 (137-145) mmol/L Potassium 5.1 (3.5-5.1) mmol/L Chloride 101 (98-107) mmol/L Carbon Dioxide 29 (22-30) mmol/L Anion Gap 8 mmol/L BUN 19 H (7-17) mg/dL Creatinine 1.13 H (0.52-1.04) mg/dL Est GFR (CKD-EPI)AfAm 60 (>60 ml/min/1.73 sqM) Est GFR (CKD-EPI)NonAf 52 (>60 ml/min/1.73 sqM) Glucose 113 H (74-99) mg/dL Calcium 9.7 (8.4-10.2) mg/dL Magnesium 1.8 (1.6-2.3) mg/dL Total Bilirubin 0.7 (0.2-1.3) mg/dL AST 25 (14-36) U/L ALT 26 (9-52) U/L Alkaline Phosphatase 30 L (38-126) U/L Total Creatine Kinase 50 (30-135) U/L CK-MB (CK-2) 1.5 (0.0-2.4) ng/mL CK-MB (CK-2) Rel Index 3.0 Troponin I <0.012 (0.000-0.034) ng/mL Total Protein 6.6 (6.3-8.2) g/dL Albumin 4.0 (3.5-5.0) g/dL 02/15/18 02/15/18 Range/Units 16:32 17:12 WBC (3.8-10.6) k/uL RBC (3.80-5.40) m/uL Hgb (11.4-16.0) gm/dL Hct (34.0-46.0) % MCV (80.0-100.0) fL MCH (25.0-35.0) pg MCHC (31.0-37.0) g/dL RDW (11.5-15.5) % Plt Count (150-450) k/uL Neutrophils % % Lymphocytes % % Monocytes % % Eosinophils % % Basophils % % Neutrophils # (1.3-7.7) k/uL Lymphocytes # (1.0-4.8) k/uL Monocytes # (0-1.0) k/uL Eosinophils # (0-0.7) k/uL Basophils # (0-0.2) k/uL PT 9.7 (9.0-12.0) sec INR 1.0 (<1.2) APTT 23.8 (22.0-30.0) sec VBG pH 7.44 H (7.31-7.41) VBG pCO2 45 (37-51) mmHg VBG HCO3 30 H (24-28) mmol/L Sodium (137-145) mmol/L Potassium (3.5-5.1) mmol/L Chloride (98-107) mmol/L Carbon Dioxide (22-30) mmol/L Anion Gap mmol/L BUN (7-17) mg/dL Creatinine (0.52-1.04) mg/dL Est GFR (CKD-EPI)AfAm (>60 ml/min/1.73 sqM) Est GFR (CKD-EPI)NonAf (>60 ml/min/1.73 sqM) Glucose (74-99) mg/dL Calcium (8.4-10.2) mg/dL Magnesium (1.6-2.3) mg/dL Total Bilirubin (0.2-1.3) mg/dL AST (14-36) U/L ALT (9-52) U/L Alkaline Phosphatase (38-126) U/L Total Creatine Kinase (30-135) U/L CK-MB (CK-2) (0.0-2.4) ng/mL CK-MB (CK-2) Rel Index Troponin I (0.000-0.034) ng/mL Total Protein (6.3-8.2) g/dL Albumin (3.5-5.0) g/dL Disposition Clinical Impression: COPD (chronic obstructive pulmonary disease) Disposition: ADMITTED IP TO THIS HOSP Condition: Fair Referrals: Kurtis Piña MD [Primary Care Provider] - 1-2 days Decision Time: 18:40
[2018-02-15 16:50] LABS: Basophils % (A) 0 %; Eosinophils # (A) 0.1 k/uL (0-0.7); Eosinophils % (A) 1 %; HCT 40.1 % (34.0-46.0); HGB 13.2 gm/dL (11.4-16.0); Lymphocytes # (A) 1.4 k/uL (1.0-4.8); Lymphocytes % (A) 12 %; MCH 29.9 pg (25.0-35.0); MCV 90.8 fL (80.0-100.0); Mean Platelet Volume 7.3; Monocytes # (A) 0.5 k/uL (0-1.0); Monocytes % (A) 4 %; Neutrophils # (A) 9.5 k/uL (1.3-7.7); Neutrophils % (A) 82 %; Platelet Count 213 k/uL (150-450); RBC 4.42 m/uL (3.80-5.40); WBC 11.5 k/uL (3.8-10.6)
--- NOTE | 2018-02-15 17:03 | XR ---
EXAMINATION TYPE: XR chest 2V DATE OF EXAM: 02/15/2018 COMPARISON: Chest x-ray December 18, 2017. HISTORY: History of COPD with difficulty in breathing. TECHNIQUE: Frontal and lateral views of the chest are obtained. FINDINGS: There is background chronic emphysematous change with scattered parenchymal fibrosis most p rominent in the right upper lobe. There is no suspicious focal air space opacity, pleural effusion, o r pneumothorax seen. The cardiac silhouette size is within normal limits with atherosclerotic change in thoracic aorta. The osseous structures are somewhat demineralized. IMPRESSION: Chronic emphysematous change with scattered fibrosis but no new acute infiltrate. No sign ificant change from most recent study.
[2018-02-15 17:04] LABS: Partial Thromboplastin Time 23.8 sec (22.0-30.0); Prothrombin Time 9.7 sec (9.0-12.0)
[2018-02-15 17:05] LABS: Calcium 9.7 mg/dL (8.4-10.2); Magnesium 1.8 mg/dL (1.6-2.3); Total Bilirubin 0.7 mg/dL (0.2-1.3); Total Protein 6.6 g/dL (6.3-8.2)
[2018-02-15 17:08] LABS: Creatine Kinase 50 U/L (30-135)
[2018-02-15 17:12] LABS: Potassium 5.1 mmol/L (3.5-5.1)
[2018-02-15 17:21] LABS: Creatine Kinase MB 1.5 ng/mL (0.0-2.4); Troponin I <0.012 ng/mL (0.000-0.034)
[2018-02-15 17:23] LABS: VBG PH 7.44 (7.31-7.41)
[2018-02-15] MEDS ORDERED: methylPREDNISolone SOD SUCCI 125 MG/2 ML VIAL IV STA (18:36)
[2018-02-15] MEDS ORDERED: SODIUM CHLORIDE 0.9% 1,000 ML IV STA (18:39)
[2018-02-15] MEDS: AZITHROMYCIN 500 MG TAB PO SCH (19:14)
[2018-02-15] MEDS: ALPRAZolam 0.25 MG TAB PO PRN (19:14)
[2018-02-15 19:59] VITALS: BMI 24.1
[2018-02-15] MEDS: IPRATROPIUM-ALBUTEROL 3 ML NEB INHALATION PRN (20:59)
[2018-02-15] MEDS: METOPROLOL TARTRATE 25 MG TAB PO SCH (21:02)
[2018-02-16] MEDS: ALPRAZolam 0.25 MG TAB PO PRN ×3 (03:53→20:25)
[2018-02-16] MEDS: IPRATROPIUM-ALBUTEROL 3 ML NEB INHALATION PRN ×4 (03:59→15:03)
[2018-02-16] MEDS ORDERED: predniSONE 20 MG TAB PO SCH (09:00)
[2018-02-16] MEDS: METOPROLOL TARTRATE 25 MG TAB PO SCH ×2 (09:08→20:26)
[2018-02-16] MEDS: AZITHROMYCIN 500 MG TAB PO SCH (10:00)
--- NOTE | 2018-02-16 16:24 | P.HPIM ---
History of Present Illness This is a pleasant 62 years old female with past medical history of COPD, also arthritis, pneumonia, she is on home oxygen dependent about 2-3 L she presents because of worsening dyspnea, with some comfort and little phlegm. Patient was taking prednisone 40 mg daily and the her doctor tried to wean her off steroids and was lowered to prednisone 20 mg alternating with 10 mg. Patient however developed some dyspnea and worsening from before as above and she came to emergency room. Currently Vitas looks stable and she is saturating 96% on room air. Prednisone 40 mg provided for the patient. Left shows mild leukocytosis which might be related to her prednisone effect. Chest x-ray showing no acute infiltrates but chronic emphysematous changes with scattered fibrosis. EKG shows sinus tachycardia at 119, with no significant ST-T changes. QTC is 441 Review of Systems CONSTITUTIONAL: No fever, no malaise, no fatigue. HEENT: No recent visual problems or hearing problems. Denied any sore throat. CARDIOVASCULAR: No orthopnea, PND, no palpitations, no syncope. PULMONARY: No shortness of breath, no cough, no hemoptysis. GASTROINTESTINAL: No diarrhea, no nausea, no vomiting, no abdominal pain. Normoactive bowel sounds. NEUROLOGICAL: No headaches, no weakness, no numbness. HEMATOLOGICAL: Denies any bleeding or petechiae. GENITOURINARY: Denies any burning micturition, frequency, or urgency. MUSCULOSKELETAL/RHEUMATOLOGICAL: Denies any joint pain, swelling, or any muscle pain. ENDOCRINE: Denies any polyuria or polydipsia. Past Medical History Past Medical History: COPD, Osteoarthritis (OA), Pneumonia Additional Past Medical History / Comment(s): HOME 02 2 LITERS N/C, EDENTULOUS, previous spine fracture did pt no brace worn. PAST DIRECTOR APPOINTMENT HISTORY: She has no history of STDs. History of Any Multi-Drug Resistant Organisms: None Reported Past Surgical History: Appendectomy Additional Past Surgical History / Comment(s): LASER EYE SX, lt breast bx-neg. Previous colonoscopy done prior to 1999. Past Anesthesia/Blood Transfusion Reactions: No Reported Reaction Past Psychological History: Anxiety Additional Psychological History / Comment(s): PT LIVES WITH HER DAUGHER IN A SINGLE LEVEL HOME THAT HAS 4 PORCH STEPS AND A BASEMENT W/12 STEPS. NO OUTSIDE SERVICES RECIEVED. HAS HOME O2 AND A NEBULIZER. PT IS INDEPENDANT WHEN UP. 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 Smoking Status: Former smoker Past Alcohol Use History: None Reported Additional Past Alcohol Use History / Comment(s): STARTED SMOKING AROUND 1976- PPD, QUIT . Past Drug Use History: None Reported - Past Family History Mother Family Medical History: Cancer Additional Family Medical History / Comment(s): breast/BLADDER CA Father Family Medical History: Cancer, Myocardial Infarction ([place]) Additional Family Medical History / Comment(s): BRAIN TUMORS. Grandfather had colon cancer. Medications and Allergies Home Medications Medication Instructions Recorded Confirmed Type Budesonide [Pulmicort] 0.5 mg INHALATION RT-BID nebu 12/17/14 02/15/18 Rx Arformoterol Tartrate [Brovana] 15 mcg INHALATION RT-BID 04/14/15 02/15/18 History Albuterol Inhaler [Ventolin Hfa 2 puff INHALATION RT-QID PRN 09/03/16 02/15/18 History Inhaler] Metoprolol Tartrate 25 mg PO BID 09/03/16 02/15/18 History Pantoprazole [Protonix] 40 mg PO LIZZETH-ERMIASFSBrandon #30 tablet. 06/15/17 02/15/18 Rx Ipratropium-Albuterol Nebulize 3 ml INHALATION RT-QID 06/20/17 02/15/18 History [Duoneb 0.5 mg-3 mg/3 ml Soln] ALPRAZolam [Xanax] 0.25 mg PO QID #120 tablet 07/04/17 02/15/18 Rx rOPINIRole HCL [Requip] 0.5 mg PO HS 12/18/17 02/15/18 History Cholecalciferol [Vitamin D3] 1,000 unit PO DAILY 02/15/18 02/15/18 History Magnesium 200 mg PO DAILY 02/15/18 02/15/18 History Zinc 50 mg PO DAILY 02/15/18 02/15/18 History predniSONE 20 mg PO DAILY 02/15/18 02/15/18 History Allergies Allergy/AdvReac Type Severity Reaction Status Date / Time levofloxacin [From Levaquin] Allergy Rash/Hives Verified 02/15/18 16:28 montelukast [From Singulair] Allergy Itching Verified 02/15/18 16:28 Penicillins Allergy Rash/Hives Verified 02/15/18 16:28 Physical Exam Vitals: Vital Signs Temp Pulse Pulse Resp BP BP Pulse Ox 02/16/18 16:00 98.4 F 98 16 107/73 96 02/16/18 15:13 90 16 02/16/18 15:03 92 16 02/16/18 12:00 98.3 F 94 16 104/68 95 02/16/18 11:24 95 02/16/18 11:14 94 02/16/18 08:00 97.8 F 96 88 16 111/75 100 02/16/18 07:49 92 02/16/18 04:08 96 02/16/18 04:00 97.4 F L 98 18 139/77 94 L 02/16/18 03:59 92 02/16/18 00:00 18 95 02/15/18 23:04 18 02/15/18 21:06 98 02/15/18 21:01 94 02/15/18 20:00 18 02/15/18 19:43 98.3 F 95 18 134/84 97 02/15/18 19:16 99 18 125/69 98 02/15/18 18:30 98 18 114/77 98 02/15/18 17:00 99 18 127/81 98 02/15/18 16:36 18 Intake and Output 02/16/18 02/16/18 02/16/18 06:59 14:59 22:59 Other: # Voids 2 1 GENERAL: The patient is alert and oriented x3, not in any acute distress. Well developed, well nourished. HEENT: Pupils are round and equally reacting to light. EOMI. No scleral icterus. No conjunctival pallor. Normocephalic, atraumatic. No pharyngeal erythema. No thyromegaly. CARDIOVASCULAR: S1 and S2 present. No murmurs, rubs, or gallops. -PULMONARY: Chest is clear to auscultation, bilateral expiratory wheezing ABDOMEN: Soft, nontender, nondistended, normoactive bowel sounds. No palpable organomegaly. MUSCULOSKELETAL: No joint swelling or deformity. EXTREMITIES: No cyanosis, clubbing, or pedal edema. NEUROLOGICAL: Gross neurological examination did not reveal any focal deficits. SKIN: No rashes. Results CBC & Chem 7: 02/15/18 16:32 02/15/18 16:32 Labs: Abnormal Lab Results - Last 24 Hours (Table) 02/15/18 02/15/18 02/15/18 Range/Units 16:32 16:32 17:12 WBC 11.5 H (3.8-10.6) k/uL Neutrophils # 9.5 H (1.3-7.7) k/uL VBG pH 7.44 H (7.31-7.41) VBG HCO3 30 H (24-28) mmol/L BUN 19 H (7-17) mg/dL Creatinine 1.13 H (0.52-1.04) mg/dL Glucose 113 H (74-99) mg/dL Alkaline Phosphatase 30 L (38-126) U/L Thrombosis Risk Factor Assmnt - Choose All That Apply Each Factor Represents 1 point: Abnormal pulmonary function (COPD) Each Risk Factor Represents 2 Points: Age 61-74 years Thrombosis Risk Factor Assessment Total Risk Factor Score: 3 Thrombosis Risk Factor Assessment Level: Moderate Risk Assessment and Plan Assessment: Acute COPD exacerbation Osteoporosis History of hypertension History of low vitamin D Plan: This is a pleasant 62 years old female who presents with acute COPD exacerbation. Continue with steroids, breathing treatment, oxygen, call pulmonary consult Labs and medication were reviewed.. Continue same treatment. Continue with symptomatic treatment. Resume home medication. Monitor lytes and vitals. DVT and GI prophylaxis. Further recommendations of the clinical course of the patient DVT prophylaxis: Subcutaneous heparin GI Prophylaxis: Pepcid Prognosis is guarded
--- NOTE | 2018-02-16 16:45 | P.CNPUL ---
History of Present Illness Consult date: 02/16/18 Reason for consult: dyspnea, cough, COPD, hypoxemia, pulmonary hypertension Chief complaint: Progressive increased shortness of breath for last 4-5 days History of present illness: 62-year-old with end-stage lung disease and severe COPD emphysema patient has been extensive a smoker but lately have his stopped smoking, patient is oxygen dependent and prednisone dependent end-stage lung disease related to COPD, for the last 4-5 days started noting increasing shortness of breath does have feeling of congestion symptoms of progressive and until comes to appointment she came into the hospital for further evaluation, patient has been on maintenance prednisone which has been tapered from 20 mg daily to alternate 10 and 20 patient attributes tapering her steroids to current exacerbation, she denies any contact, she has received her flu shot and pneumonia shot, on specific questioning she denies any seizure activity loss of consciousness) denies any chest pain or radiation of pain denies any hemoptysis denies any bowel or bladder dysfunction, patient has been using her nebulizer therapy and a regular basis which does help Review of Systems All systems: negative Constitutional: Reports as per HPI Past Medical History Past Medical History: COPD, Osteoarthritis (OA), Pneumonia Additional Past Medical History / Comment(s): HOME 02 2 LITERS N/[place], EDENTULOUS, previous spine fracture did pt no brace worn. 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 History of Any Multi-Drug Resistant Organisms: None Reported Past Surgical History: Appendectomy Additional Past Surgical History / Comment(s): LASER EYE SX, lt breast bx-neg. Previous colonoscopy done prior to 1999. Past Anesthesia/Blood Transfusion Reactions: No Reported Reaction Past Psychological History: Anxiety Additional Psychological History / Comment(s): PT LIVES WITH HER PEPITOER IN A SINGLE LEVEL HOME THAT HAS 4 PORCH STEPS AND A BASEMENT W/12 STEPS. NO OUTSIDE SERVICES RECIEVED. HAS HOME O2 AND A NEBULIZER. PT IS INDEPENDANT WHEN UP. 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 Smoking Status: Former smoker Past Alcohol Use History: None Reported Additional Past Alcohol Use History / Comment(s): STARTED SMOKING AROUND 1976- 2 PPD, QUIT . Past Drug Use History: None Reported - Past Family History Mother Family Medical History: Cancer Additional Family Medical History / Comment(s): breast/BLADDER CA Father Family Medical History: Cancer, Myocardial Infarction ([place]) Additional Family Medical History / Comment(s): BRAIN TUMORS. Grandfather had colon cancer. Medications and Allergies Home Medications Medication Instructions Recorded Confirmed Type Budesonide [Pulmicort] 0.5 mg INHALATION RT-BID nebu 12/17/14 02/15/18 Rx Arformoterol Tartrate [Brovana] 15 mcg INHALATION RT-BID 04/14/15 02/15/18 History Albuterol Inhaler [Ventolin Hfa 2 puff INHALATION RT-QID PRN 09/03/16 02/15/18 History Inhaler] Metoprolol Tartrate 25 mg PO BID 09/03/16 02/15/18 History Pantoprazole [Protonix] 40 mg PO AC-BRKT #30 tablet. 06/15/17 02/15/18 Rx Ipratropium-Albuterol Nebulize 3 ml INHALATION RT-QID 06/20/17 02/15/18 History [Duoneb 0.5 mg-3 mg/3 ml Soln] ALPRAZolam [Xanax] 0.25 mg PO QID #120 tablet 07/04/17 02/15/18 Rx rOPINIRole HCL [Requip] 0.5 mg PO HS 12/18/17 02/15/18 History Cholecalciferol [Vitamin D3] 1,000 unit PO DAILY 02/15/18 02/15/18 History Magnesium 200 mg PO DAILY 02/15/18 02/15/18 History Zinc 50 mg PO DAILY 02/15/18 02/15/18 History predniSONE 20 mg PO DAILY 02/15/18 02/15/18 History Allergies Allergy/AdvReac Type Severity Reaction Status Date / Time levofloxacin [From Levaquin] Allergy Rash/Hives Verified 02/15/18 16:28 montelukast [From Singulair] Allergy Itching Verified 02/15/18 16:28 Penicillins Allergy Rash/Hives Verified 02/15/18 16:28 Physical Exam Vitals: Vital Signs Temp Pulse Pulse Resp BP BP Pulse Ox 02/16/18 16:00 98.4 F 98 16 107/73 96 02/16/18 15:13 90 16 02/16/18 15:03 92 16 02/16/18 12:00 98.3 F 94 16 104/68 95 02/16/18 11:24 95 11/25/18 11:14 94 02/16/18 08:00 97.8 F 96 88 16 111/75 100 02/16/18 07:49 92 02/16/18 04:08 96 02/16/18 04:00 97.4 F L 98 18 139/77 94 L 02/16/18 03:59 92 02/16/18 00:00 18 95 02/15/18 23:04 18 02/15/18 21:06 98 02/15/18 21:01 94 02/15/18 20:00 18 02/15/18 19:43 98.3 F 95 18 134/84 97 02/15/18 19:16 99 18 125/69 98 02/15/18 18:30 98 18 114/77 98 02/15/18 17:00 99 18 127/81 98 Intake and Output 02/16/18 02/16/18 02/16/18 06:59 14:59 22:59 Other: # Voids 2 1 - Constitutional General appearance: average body habitus, cooperative, disheveled, mild distress - EENT Eyes: EOMI, PERRLA, normal appearance ENT: normal oropharynx Ears: bilateral: normal - Neck Neck: normal ROM Carotids: bilateral: upstroke normal, upstroke bounding, bruit absent - Respiratory Respiratory: bilateral: diminished, rhonchi, wheezing, negative: dullness, rales - Cardiovascular Heart sounds: normal: S1, S2 - Gastrointestinal General gastrointestinal: decreased bowel sounds, normal bowel sounds - Integumentary Integumentary: normal turgor - Neurologic Neurologic: CNII-XII intact - Musculoskeletal Musculoskeletal: gait normal, generalized weakness, strength equal bilaterally - Psychiatric Psychiatric: A&O x's 3, appropriate affect, intact judgment & insight Results - Laboratory Findings CBC and BMP: 02/15/18 16:32 02/15/18 16:32 PT/INR, D-dimer PT 9.7 sec (9.0-12.0) 02/15/18 16:32 INR 1.0 (<1.2) 02/15/18 16:32 Abnormal lab findings: Abnormal Labs 02/15/18 02/15/18 02/15/18 16:32 16:32 17:12 WBC 11.5 H Neutrophils # 9.5 H VBG pH 7.44 H VBG HCO3 30 H BUN 19 H Creatinine 1.13 H Glucose 113 H Alkaline Phosphatase 30 L - Diagnostic Findings Chest x-ray: report reviewed, image reviewed (COPD-like changes extensive emphysematous changes appearing like fibrotic changes) Assessment and Plan Assessment: Acute COPD exacerbation Acute on chronic hypoxic respiratory failure Prednisone-dependent and home oxygen dependent severe COPD End-stage lung disease second to severe COPD emphysema Likely developing cor pulmonale Generalized anxiety disorder Hypertension Restless leg syndrome Plan: Change to full admit IV steroids We'll resume long-acting better to agonist Thompson is a We will resume inhaled corticosteroid via nebulizer Agree with broad-spectrum antibiotics Arrange for noninvasive ventilation at night and when necessary during the day as outpatient for severe end-stage lung disease due to severe symptomatic COPD Time with Patient: Greater than 30
[2018-02-16] MEDS: methylPREDNISolone SOD SUCCI 125 MG/2 ML VIAL IV SCH (17:52)
[2018-02-16] MEDS: BUDESONIDE 0.5 MG/2 ML NEBU INHALATION SCH (19:24)
[2018-02-16] MEDS: FORMOTEROL FUMARATE 20 MCG/2 ML NEBU INHALATION SCH (19:24)
[2018-02-16] MEDS: IPRATROPIUM-ALBUTEROL 3 ML NEB INHALATION SCH (19:24)
[2018-02-16] MEDS: HEPARIN SODIUM,PORCINE 5,000 UNIT/ML 1 ML VIAL SQ SCH (20:25)
[2018-02-16] MEDS ORDERED: FAMOTIDINE 20 MG/2 ML VIAL IV SCH (21:00)
[2018-02-17] MEDS: methylPREDNISolone SOD SUCCI 125 MG/2 ML VIAL IV SCH ×5 (00:08→23:57)
[2018-02-17] MEDS: IPRATROPIUM-ALBUTEROL 3 ML NEB INHALATION PRN (03:58)
[2018-02-17] MEDS: ALPRAZolam 0.25 MG TAB PO PRN ×3 (05:43→20:04)
[2018-02-17] MEDS: IPRATROPIUM-ALBUTEROL 3 ML NEB INHALATION SCH ×4 (07:46→19:02)
[2018-02-17] MEDS: BUDESONIDE 0.5 MG/2 ML NEBU INHALATION SCH ×2 (07:46→19:02)
[2018-02-17] MEDS: FORMOTEROL FUMARATE 20 MCG/2 ML NEBU INHALATION SCH ×2 (07:46→19:20)
--- NOTE | 2018-02-17 08:40 | P.PN ---
Subjective Progress Note Date: 02/17/18 Principal diagnosis: Exacerbation of COPD. This is a continue progress on a 62-year-old white female essentially admitted for exacerbation of COPD. Unfortunate, she has end-stage elements at times. No voiding difficulties noted. No fever is stated. I did had a long discussion with her unfortunately that she is steroid dependent at this time. Objective - Vital Signs Vital signs: Vital Signs Temp 96.2 F L 02/17/18 05:39 Pulse 100 02/17/18 08:11 Resp 16 02/17/18 05:39 BP 141/67 02/17/18 05:39 Pulse Ox 92 L 02/17/18 05:39 Intake & Output 02/16/18 02/17/18 02/17/18 18:59 06:59 18:59 Intake Total 240 Balance 240 Intake: Oral 240 Other: # Voids 1 1 - Labs CBC & Chem 7: 02/15/18 16:32 02/15/18 16:32 Assessment and Plan (1) Acute exacerbation of chronic obstructive airways disease Current Visit: No Status: Acute Code(s): J44.1 - CHRONIC OBSTRUCTIVE PULMONARY DISEASE W (ACUTE) EXACERBATION SNOMED Code(s): 422026028 (2) Debility Current Visit: No Status: Acute Code(s): R53.81 - OTHER MALAISE SNOMED Code(s): 96460042 Plan: Continue current regimen or treatment. Wean slowly off of Solu-Medrol. Check CBC and CMP in a.m. Appreciate pulmonology input. She orders otherwise.
[2018-02-17] MEDS: METOPROLOL TARTRATE 25 MG TAB PO SCH ×2 (09:13→20:20)
[2018-02-17] MEDS: PANTOPRAZOLE 40 MG TABLET PO SCH (09:13)
[2018-02-17] MEDS: AZITHROMYCIN 500 MG TAB PO SCH (09:13)
[2018-02-17] MEDS: HEPARIN SODIUM,PORCINE 5,000 UNIT/ML 1 ML VIAL SQ SCH ×2 (09:14→20:03)
--- NOTE | 2018-02-17 11:05 | P.PN ---
Subjective Progress Note Date: 02/17/18 Principal diagnosis: Acute COPD exacerbation, acute on chronic hypoxic respiratory failure, tracheobronchitis, end-stage lung disease secondary severe COPD emphysema steroid dependent and oxygen dependent 02/17/2018, patient seen eval reexamined during the rounds clinically patient has been doing slightly better in terms of breathing at rest but however gets very short of breath on activity and exertion is still left cough which is mostly dry and nonproductive, patient does have feeling of intense shortness of breath at rest as well as on activity and exertion, she has been started on IV steroids breathing treatment antibiotics home medication has been resumed 62-year-old with end-stage lung disease and severe COPD emphysema patient has been extensive a smoker but lately have his stopped smoking, patient is oxygen dependent and prednisone dependent end-stage lung disease related to COPD, for the last 4-5 days started noting increasing shortness of breath does have feeling of congestion symptoms of progressive and until comes to appointment she came into the hospital for further evaluation, patient has been on maintenance prednisone which has been tapered from 20 mg daily to alternate 10 and 20 patient attributes tapering her steroids to current exacerbation, she denies any contact, she has received her flu shot and pneumonia shot, on specific questioning she denies any seizure activity loss of consciousness) denies any chest pain or radiation of pain denies any hemoptysis denies any bowel or bladder dysfunction, patient has been using her nebulizer therapy and a regular basis which does help Objective - Vital Signs Vital signs: Vital Signs Temp 96.2 F L 02/17/18 05:39 Pulse 100 02/17/18 08:11 Resp 16 02/17/18 05:39 BP 141/67 02/17/18 05:39 Pulse Ox 92 L 02/17/18 05:39 Intake & Output 02/16/18 02/17/18 02/17/18 18:59 06:59 18:59 Intake Total 240 Balance 240 Intake: Oral 240 Other: # Voids 1 1 - Exam Constitutional General appearance: average body habitus, cooperative, disheveled, mild distress - EENT Eyes: EOMI, PERRLA, normal appearance ENT: normal oropharynx Ears: bilateral: normal - Neck Neck: normal ROM Carotids: bilateral: upstroke normal, upstroke bounding, bruit absent - Respiratory Respiratory: bilateral: diminished, rhonchi, wheezing, negative: dullness, rales - Cardiovascular Heart sounds: normal: S1, S2 - Gastrointestinal General gastrointestinal: decreased bowel sounds, normal bowel sounds - Integumentary Integumentary: normal turgor - Neurologic Neurologic: CNII-XII intact - Musculoskeletal Musculoskeletal: gait normal, generalized weakness, strength equal bilaterally - Psychiatric Psychiatric: A&O x's 3, appropriate affect, intact judgment & insight - Labs CBC & Chem 7: 02/15/18 16:32 02/15/18 16:32 Assessment and Plan Assessment: Acute COPD exacerbation Acute on chronic hypoxic respiratory failure Prednisone-dependent and home oxygen dependent severe COPD End-stage lung disease second to severe COPD emphysema Likely developing cor pulmonale Generalized anxiety disorder Hypertension Restless leg syndrome Plan: Change to full admit IV steroids Continue long-acting beta 2 agonist Continue inhaled corticosteroid via nebulizer Agree with broad-spectrum antibiotics Arrange for noninvasive ventilation at night and when necessary during the day as outpatient for severe end-stage lung disease due to severe symptomatic COPD Time with Patient: Greater than 30
[2018-02-18] MEDS: IPRATROPIUM-ALBUTEROL 3 ML NEB INHALATION PRN (02:58)
[2018-02-18] MEDS: ALPRAZolam 0.25 MG TAB PO PRN ×3 (03:00→20:01)
[2018-02-18] MEDS: methylPREDNISolone SOD SUCCI 125 MG/2 ML VIAL IV SCH ×4 (06:05→23:42)
[2018-02-18 08:00] LABS: HCT 38.4 % (34.0-46.0); HGB 12.5 gm/dL (11.4-16.0); MCHC 32.5 g/dL (31.0-37.0); MCV 95.2 fL (80.0-100.0); Mean Platelet Volume 8.7; Platelet Count 232 k/uL (150-450); RBC 4.04 m/uL (3.80-5.40); RDW 15.1 % (11.5-15.5)
[2018-02-18 08:11] LABS: ALT 25 U/L (9-52); AST 17 U/L (14-36); Albumin 3.7 g/dL (3.5-5.0); Alkaline Phosphatase 44 U/L (38-126); Anion Gap 7 mmol/L; Blood Urea Nitrogen 29 mg/dL (7-17); Calcium 9.6 mg/dL (8.4-10.2); Carbon Dioxide 32 mmol/L (22-30); Chloride 99 mmol/L (98-107); Glucose 138 mg/dL (74-99); Potassium 4.4 mmol/L (3.5-5.1); Sodium 138 mmol/L (137-145); Total Bilirubin 0.3 mg/dL (0.2-1.3); Total Protein 6.2 g/dL (6.3-8.2)
[2018-02-18] MEDS: FORMOTEROL FUMARATE 20 MCG/2 ML NEBU INHALATION SCH ×2 (08:13→20:32)
[2018-02-18] MEDS: BUDESONIDE 0.5 MG/2 ML NEBU INHALATION SCH ×2 (08:13→20:23)
[2018-02-18] MEDS: IPRATROPIUM-ALBUTEROL 3 ML NEB INHALATION SCH ×4 (08:14→20:23)
[2018-02-18] MEDS: AZITHROMYCIN 500 MG TAB PO SCH (08:55)
[2018-02-18] MEDS: PANTOPRAZOLE 40 MG TABLET PO SCH (08:56)
[2018-02-18] MEDS: METOPROLOL TARTRATE 25 MG TAB PO SCH ×2 (08:56→20:04)
[2018-02-18] MEDS: HEPARIN SODIUM,PORCINE 5,000 UNIT/ML 1 ML VIAL SQ SCH ×2 (08:56→20:02)
--- NOTE | 2018-02-18 13:13 | P.PN ---
Subjective Principal diagnosis: Exacerbation of COPD. This is a continue progress on a 62-year-old white female essentially admitted for exacerbation of COPD. The patient still feels as though she is not improving. We did briefly talk about further therapies such as Tums cell treatment, however these treatments are not FDA approved. Otherwise no significant voiding difficulties. No nausea, vomiting or diarrhea Objective - Vital Signs Vital signs: Vital Signs Temp 98.3 F 02/18/18 12:02 Pulse 94 02/18/18 12:02 Resp 18 02/18/18 12:02 BP 123/65 02/18/18 12:02 Pulse Ox 99 02/18/18 04:54 Intake & Output 02/17/18 02/18/18 02/18/18 18:59 06:59 18:59 Intake Total 680 Balance 680 Weight 56 kg Intake: Oral 680 Other: Voiding Method Toilet Toilet # Voids 2 1 - Constitutional General appearance: Present: thin - EENT Eyes: Absent: abnormal pupil - Neck Neck: Absent: lymphadenopathy - Respiratory Respiratory: bilateral: diminished, prolonged expiration - Cardiovascular Rhythm: regular Heart sounds: normal: S1, S2 Abnormal Heart Sounds: Absent: S3 Gallop - Gastrointestinal General gastrointestinal: Present: soft. Absent: tenderness - Musculoskeletal Musculoskeletal: Present: generalized weakness - Psychiatric Psychiatric: Present: A&O x's 3 - Labs CBC & Chem 7: 02/18/18 07:12 02/18/18 07:12 Labs: Abnormal Lab Results - Last 24 Hours (Table) 02/18/18 02/18/18 Range/Units 07:12 07:12 WBC 16.0 H (3.8-10.6) k/uL Carbon Dioxide 32 H (22-30) mmol/L BUN 29 H (7-17) mg/dL Glucose 138 H (74-99) mg/dL Total Protein 6.2 L (6.3-8.2) g/dL Assessment and Plan (1) Acute exacerbation of chronic obstructive airways disease Current Visit: No Status: Acute Code(s): J44.1 - CHRONIC OBSTRUCTIVE PULMONARY DISEASE W (ACUTE) EXACERBATION SNOMED Code(s): 299050864 (2) Debility Current Visit: No Status: Acute Code(s): R53.81 - OTHER MALAISE SNOMED Code(s): 02693074 Plan: Continue current regimen or treatment. Slowly wean off of Solu-Medrol. Appreciate pulmonology input. Check CMP in a.m. Time with Patient: Less than 30
--- NOTE | 2018-02-18 18:49 | P.PN ---
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 02/18/2018, patient seen eval reexamined during the rounds clinically overall not much change very short of breath on minimal activity and exertion patient remains on IV steroids breathing treatment, denies any cough or sputum production labs reviewed medications reviewed care plan reviewed as well patient had some tachycardia earlier today EKG revealed sinus tachycardia likely related to bronchodilator end-stage lung disease and severe COPD emphysema 02/17/2018, patient seen eval reexamined during the rounds clinically patient has been doing slightly better in terms of breathing at rest but however gets very short of breath on activity and exertion is still left cough which is mostly dry and nonproductive, patient does have feeling of intense shortness of breath at rest as well as on activity and exertion, she has been started on IV steroids breathing treatment antibiotics home medication has been resumed 62-year-old with end-stage lung disease and severe COPD emphysema patient has been extensive a smoker but lately have his stopped smoking, patient is oxygen dependent and prednisone dependent end-stage lung disease related to COPD, for the last 4-5 days started noting increasing shortness of breath does have feeling of congestion symptoms of progressive and until comes to appointment she came into the hospital for further evaluation, patient has been on maintenance prednisone which has been tapered from 20 mg daily to alternate 10 and 20 patient attributes tapering her steroids to current exacerbation, she denies any contact, she has received her flu shot and pneumonia shot, on specific questioning she denies any seizure activity loss of consciousness) denies any chest pain or radiation of pain denies any hemoptysis denies any bowel or bladder dysfunction, patient has been using her nebulizer therapy and a regular basis which does help Objective - Vital Signs Vital signs: Vital Signs Temp 98.3 F 02/18/18 12:02 Pulse 96 02/18/18 16:21 Resp 18 02/18/18 12:02 BP 123/65 02/18/18 12:02 Pulse Ox 99 02/18/18 04:54 Intake & Output 02/17/18 02/18/18 02/18/18 18:59 06:59 18:59 Intake Total 680 10 Balance 680 10 Weight 56 kg Intake: IV 10 .9 flush 10 Oral 680 Other: Voiding Method Toilet Toilet # Voids 2 1 - Exam Constitutional General appearance: average body habitus, cooperative, disheveled, mild distress - EENT Eyes: EOMI, PERRLA, normal appearance ENT: normal oropharynx Ears: bilateral: normal - Neck Neck: normal ROM Carotids: bilateral: upstroke normal, upstroke bounding, bruit absent - Respiratory Respiratory: bilateral: diminished, rhonchi, wheezing, negative: dullness, rales - Cardiovascular Heart sounds: normal: S1, S2 - Gastrointestinal General gastrointestinal: decreased bowel sounds, normal bowel sounds - Integumentary Integumentary: normal turgor - Neurologic Neurologic: CNII-XII intact - Musculoskeletal Musculoskeletal: gait normal, generalized weakness, strength equal bilaterally - Psychiatric Psychiatric: A&O x's 3, appropriate affect, intact judgment & insight - Labs CBC & Chem 7: 02/18/18 07:12 02/18/18 07:12 Labs: Abnormal Lab Results - Last 24 Hours (Table) 02/18/18 02/18/18 Range/Units 07:12 07:12 WBC 16.0 H (3.8-10.6) k/uL Carbon Dioxide 32 H (22-30) mmol/L BUN 29 H (7-17) mg/dL Glucose 138 H (74-99) mg/dL Total Protein 6.2 L (6.3-8.2) g/dL Assessment and Plan Assessment: Acute COPD exacerbation Sinus tachycardia multifactorial related to bronchodilator as well as end-stage lung disease second to severe COPD emphysema Acute on chronic hypoxic respiratory failure Prednisone-dependent and home oxygen dependent severe COPD End-stage lung disease second to severe COPD emphysema Likely developing cor pulmonale Generalized anxiety disorder Hypertension Restless leg syndrome Plan: Continue current plan of care IV steroids Continue long-acting beta 2 agonist Continue inhaled corticosteroid via nebulizer Agree with broad-spectrum antibiotics Arrange for noninvasive ventilation at night and when necessary during the day as outpatient for severe end-stage lung disease due to severe symptomatic COPD Time with Patient: Greater than 30
[2018-02-19] MEDS: ALPRAZolam 0.25 MG TAB PO PRN ×3 (04:37→22:17)
[2018-02-19] MEDS: methylPREDNISolone SOD SUCCI 125 MG/2 ML VIAL IV SCH ×3 (05:01→16:55)
[2018-02-19 08:11] LABS: ALT 21 U/L (9-52); AST 21 U/L (14-36); Albumin 4.3 g/dL (3.5-5.0); Alkaline Phosphatase 42 U/L (38-126); Anion Gap 10 mmol/L; Blood Urea Nitrogen 29 mg/dL (7-17); Calcium 9.7 mg/dL (8.4-10.2); Carbon Dioxide 30 mmol/L (22-30); Chloride 98 mmol/L (98-107); Glucose 140 mg/dL (74-99); Potassium 4.3 mmol/L (3.5-5.1); Sodium 138 mmol/L (137-145); Total Bilirubin 0.5 mg/dL (0.2-1.3); Total Protein 6.9 g/dL (6.3-8.2)
[2018-02-19] MEDS: FORMOTEROL FUMARATE 20 MCG/2 ML NEBU INHALATION SCH ×2 (08:45→19:39)
[2018-02-19] MEDS: BUDESONIDE 0.5 MG/2 ML NEBU INHALATION SCH ×2 (08:46→19:39)
[2018-02-19] MEDS: IPRATROPIUM-ALBUTEROL 3 ML NEB INHALATION SCH ×4 (08:46→19:39)
[2018-02-19] MEDS: PANTOPRAZOLE 40 MG TABLET PO SCH (09:23)
[2018-02-19] MEDS: AZITHROMYCIN 500 MG TAB PO SCH (09:23)
[2018-02-19] MEDS: METOPROLOL TARTRATE 25 MG TAB PO SCH ×2 (09:24→22:17)
[2018-02-19] MEDS: HEPARIN SODIUM,PORCINE 5,000 UNIT/ML 1 ML VIAL SQ SCH ×2 (09:24→22:17)
[2018-02-19] MEDS: traMADol 50 MG TAB PO PRN ×2 (09:25→16:55)
[2018-02-20] MEDS: methylPREDNISolone SOD SUCCI 125 MG/2 ML VIAL IV SCH ×2 (00:17→05:25)
[2018-02-20] MEDS: traMADol 50 MG TAB PO PRN ×2 (04:15→11:15)
[2018-02-20] MEDS: ALPRAZolam 0.25 MG TAB PO PRN ×2 (04:16→20:19)
[2018-02-20] MEDS: IPRATROPIUM-ALBUTEROL 3 ML NEB INHALATION PRN (04:47)
--- NOTE | 2018-02-20 08:14 | P.PN ---
Subjective Principal diagnosis: Exacerbation of COPD. This is a continue progress on a 62-year-old white female essentially admitted for exacerbation of COPD. The patient still feels as though she is not improving. We did briefly talk about further therapies such as Tums cell treatment, however these treatments are not FDA approved. Otherwise no significant voiding difficulties. No nausea, vomiting or diarrhea Objective - Vital Signs Vital signs: Vital Signs Temp 97.8 F 02/20/18 04:51 Pulse 92 02/20/18 04:55 Resp 20 02/20/18 04:51 BP 152/91 02/20/18 04:51 Pulse Ox 97 02/20/18 04:51 Intake & Output 02/19/18 02/20/18 02/20/18 18:59 06:59 18:59 Intake Total 20 1300 Balance 20 1300 Intake: IV 20 .9 flush 20 Oral 1300 Other: Voiding Method Toilet Toilet # Voids 3 2 - Constitutional General appearance: Present: average body habitus - EENT Eyes: Absent: abnormal pupil - Respiratory Respiratory: bilateral: diminished - Cardiovascular Rhythm: regular Heart sounds: normal: S1, S2 Abnormal Heart Sounds: Absent: S3 Gallop - Gastrointestinal General gastrointestinal: Present: soft. Absent: tenderness - Integumentary Integumentary: Present: rash - Labs CBC & Chem 7: 02/18/18 07:12 02/19/18 07:36 Assessment and Plan (1) Acute exacerbation of chronic obstructive airways disease Current Visit: No Status: Acute Code(s): J44.1 - CHRONIC OBSTRUCTIVE PULMONARY DISEASE W (ACUTE) EXACERBATION SNOMED Code(s): 033803538 (2) Debility Current Visit: No Status: Acute Code(s): R53.81 - OTHER MALAISE SNOMED Code(s): 58226916 Plan: Wean slowly off steroids. Anticipate discharge in a.m. if continued improvement trajectory. Prognosis is guarded secondary to her end-stage COPD however.
[2018-02-20] MEDS: HEPARIN SODIUM,PORCINE 5,000 UNIT/ML 1 ML VIAL SQ SCH ×2 (08:18→21:13)
[2018-02-20] MEDS: METOPROLOL TARTRATE 25 MG TAB PO SCH ×2 (08:18→20:19)
[2018-02-20] MEDS: PANTOPRAZOLE 40 MG TABLET PO SCH (08:18)
[2018-02-20] MEDS: AZITHROMYCIN 500 MG TAB PO SCH (08:18)
[2018-02-20] MEDS: FORMOTEROL FUMARATE 20 MCG/2 ML NEBU INHALATION SCH ×2 (08:57→19:36)
[2018-02-20] MEDS: BUDESONIDE 0.5 MG/2 ML NEBU INHALATION SCH ×2 (08:57→19:35)
[2018-02-20] MEDS: IPRATROPIUM-ALBUTEROL 3 ML NEB INHALATION SCH ×4 (08:57→19:36)
[2018-02-20] MEDS: methylPREDNISolone SOD SUCCI 40 MG/ML 1 ML VIAL IV SCH (16:09)
--- NOTE | 2018-02-20 16:14 | P.PN ---
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 seen and examined script for non invasive ventilator and prednisone provided, NIV will lower excerbation complication as well as lower the risk of respiratory failure invasive ventilator requirement and even 02/19/18 see dictated report 02/18/2018, patient seen eval reexamined during the rounds clinically overall not much change very short of breath on minimal activity and exertion patient remains on IV steroids breathing treatment, denies any cough or sputum production labs reviewed medications reviewed care plan reviewed as well patient had some tachycardia earlier today EKG revealed sinus tachycardia likely related to bronchodilator end-stage lung disease and severe COPD emphysema 02/17/2018, patient seen eval reexamined during the rounds clinically patient has been doing slightly better in terms of breathing at rest but however gets very short of breath on activity and exertion is still left cough which is mostly dry and nonproductive, patient does have feeling of intense shortness of breath at rest as well as on activity and exertion, she has been started on IV steroids breathing treatment antibiotics home medication has been resumed 62-year-old with end-stage lung disease and severe COPD emphysema patient has been extensive a smoker but lately have his stopped smoking, patient is oxygen dependent and prednisone dependent end-stage lung disease related to COPD, for the last 4-5 days started noting increasing shortness of breath does have feeling of congestion symptoms of progressive and until comes to appointment she came into the hospital for further evaluation, patient has been on maintenance prednisone which has been tapered from 20 mg daily to alternate 10 and 20 patient attributes tapering her steroids to current exacerbation, she denies any contact, she has received her flu shot and pneumonia shot, on specific questioning she denies any seizure activity loss of consciousness) denies any chest pain or radiation of pain denies any hemoptysis denies any bowel or bladder dysfunction, patient has been using her nebulizer therapy and a regular basis which does help Objective - Vital Signs Vital signs: Vital Signs Temp 97.6 F 02/20/18 12:11 Pulse 92 02/20/18 12:53 Resp 18 02/20/18 12:11 BP 124/75 02/20/18 12:11 Pulse Ox 98 02/20/18 12:11 Intake & Output 02/19/18 02/20/18 02/20/18 18:59 06:59 18:59 Intake Total 20 1300 Balance 20 1300 Intake: IV 20 .9 flush 20 Oral 1300 Other: Voiding Method Toilet Toilet # Voids 3 2 3 - Exam Constitutional General appearance: average body habitus, cooperative, disheveled, mild distress - EENT Eyes: EOMI, PERRLA, normal appearance ENT: normal oropharynx Ears: bilateral: normal - Neck Neck: normal ROM Carotids: bilateral: upstroke normal, upstroke bounding, bruit absent - Respiratory Respiratory: bilateral: diminished, rhonchi, wheezing, negative: dullness, rales - Cardiovascular Heart sounds: normal: S1, S2 - Gastrointestinal General gastrointestinal: decreased bowel sounds, normal bowel sounds - Integumentary Integumentary: normal turgor - Neurologic Neurologic: CNII-XII intact - Musculoskeletal Musculoskeletal: gait normal, generalized weakness, strength equal bilaterally - Psychiatric Psychiatric: A&O x's 3, appropriate affect, intact judgment & insight - Labs CBC & Chem 7: 02/18/18 07:12 02/19/18 07:36 Assessment and Plan Assessment: Acute COPD exacerbation Sinus tachycardia multifactorial related to bronchodilator as well as end-stage lung disease second to severe COPD emphysema Acute on chronic hypoxic respiratory failure Prednisone-dependent and home oxygen dependent severe COPD End-stage lung disease second to severe COPD emphysema Likely developing cor pulmonale Generalized anxiety disorder Hypertension Restless leg syndrome Plan: Continue current plan of care IV steroids, can be changed to prednisone 20 daily at time of discharged Continue long-acting beta 2 agonist Continue inhaled corticosteroid via nebulizer Agree with broad-spectrum antibiotics Arrange for noninvasive ventilation at night and when necessary during the day as outpatient for severe end-stage lung disease due to severe symptomatic COPD, Time with Patient: Greater than 30
--- NOTE | 2018-02-20 17:37 | PN ---
PROGRESS NOTE DATE OF SERVICE: February 19, 2018 The patient is seen, evaluated and examined during rounds. Clinically, patient is not much different from baseline. Still has significant degree of shortness of breath, cough, congestion, respiratory status overall stable though but gets short of breath on activity and exertion. Labs reviewed. Medications reviewed. EXAMINATION: Vitals include blood pressure is 152/91, respiratory 20, pulse 97, temperature is 97.8, saturation of 97% on 2 L oxygen. HEENT atraumatic, normocephalic. Pharynx is clear. Narrow pharyngeal opening is present. NECK: Supple without lymphadenopathy, jugular venous distention or carotid bruit. Lungs bilateral poor air entry is present without significant rales, rhonchi. HEART: Regular rate and rhythm, S1, S2 audible. ABDOMEN: Soft. No rebound or rigidity. Extremities +1 peripheral pulses. Neurological examination otherwise awake and alert. No focal neurological deficits. LABS: Reviewed. Medications reviewed. IMPRESSION: 1. Acute chronic obstructive pulmonary disease exacerbation. 2. Tracheobronchitis. 3. Acute on chronic hypoxic respiratory failure. 4. History of arrhythmia. PLAN/RECOMMENDATIONS: Continue antibiotics. Breathing treatments. Steroids. Continue supportive care. Increase activity as tolerated. The patient will likely need noninvasive ventilation as given that the patient has oxygen-dependent and prednisone dependent severe COPD that will improve not only the quality of sleep, lower down the complication rate as well as minimize the risk of dying from COPD and respiratory failure. MMCINDYL / BHAVESHN: [id number] /
[2018-02-21] MEDS: methylPREDNISolone SOD SUCCI 40 MG/ML 1 ML VIAL IV SCH ×3 (00:43→15:21)
[2018-02-21] MEDS: traMADol 50 MG TAB PO PRN ×3 (02:23→18:41)
[2018-02-21] MEDS: ALPRAZolam 0.25 MG TAB PO PRN ×4 (02:24→21:32)
[2018-02-21] MEDS: FORMOTEROL FUMARATE 20 MCG/2 ML NEBU INHALATION SCH ×2 (07:26→19:16)
[2018-02-21] MEDS: IPRATROPIUM-ALBUTEROL 3 ML NEB INHALATION SCH ×4 (07:26→19:17)
[2018-02-21] MEDS: BUDESONIDE 0.5 MG/2 ML NEBU INHALATION SCH ×2 (07:27→19:16)
--- NOTE | 2018-02-21 07:57 | P.PN ---
Subjective Progress Note Date: 02/21/18 Principal diagnosis: Exacerbation of COPD. This is a continue process on a 62-year-old white female essentially admitted for exacerbation of COPD. The patient has had slow taper of Solu-Medrol. I will anticipate starting prednisone in a.m. She seems quite anxious about going home today. No sniffing nausea or vomiting. No voiding difficulties otherwise stated. She uses BiPAP at night and seems to be tolerating it well. Objective - Vital Signs Vital signs: Vital Signs Temp 98.1 F 02/21/18 05:00 Pulse 88 02/21/18 07:52 Resp 16 02/21/18 05:00 BP 136/73 02/21/18 05:00 Pulse Ox 96 02/21/18 07:29 Intake & Output 02/20/18 02/21/18 02/21/18 18:59 06:59 18:59 Intake Total 10 Balance 10 Weight 56 kg Intake: IV 10 .9 flush 10 Other: Voiding Method Toilet # Voids 3 1 - Constitutional General appearance: Present: no acute distress, thin - Respiratory Respiratory: bilateral: diminished, prolonged expiration - Cardiovascular Rhythm: regular Heart sounds: normal: S1, S2 Abnormal Heart Sounds: Absent: S3 Gallop - Gastrointestinal General gastrointestinal: Present: soft. Absent: splenomegaly, tenderness - Integumentary Integumentary: Absent: cyanotic - Psychiatric Psychiatric: Present: A&O x's 3 - Labs CBC & Chem 7: 02/18/18 07:12 02/19/18 07:36 Assessment and Plan (1) Acute exacerbation of chronic obstructive airways disease Current Visit: No Status: Acute Code(s): J44.1 - CHRONIC OBSTRUCTIVE PULMONARY DISEASE W (ACUTE) EXACERBATION SNOMED Code(s): 062196931 (2) Debility Current Visit: No Status: Acute Code(s): R53.81 - OTHER MALAISE SNOMED Code(s): 21168945 Plan: Continue slow taper of son Medrol. Anticipate discharge in next 24-48 hours. Anticipate placing on oral prednisone and an discharge soon. Dr. Sommers's group is covering for the weekend. See orders otherwise.
[2018-02-21] MEDS: HEPARIN SODIUM,PORCINE 5,000 UNIT/ML 1 ML VIAL SQ SCH ×2 (08:11→21:30)
[2018-02-21] MEDS: PANTOPRAZOLE 40 MG TABLET PO SCH (08:25)
[2018-02-21] MEDS: METOPROLOL TARTRATE 25 MG TAB PO SCH ×2 (08:26→21:29)
[2018-02-21] MEDS: AZITHROMYCIN 500 MG TAB PO SCH (08:26)
--- NOTE | 2018-02-21 15:31 | P.PN ---
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 seen and examined script for non invasive ventilator and prednisone provided, NIV will lower excerbation complication as well as lower the risk of respiratory failure invasive ventilator requirement and even 02/19/18 see dictated report 02/18/2018, patient seen eval reexamined during the rounds clinically overall not much change very short of breath on minimal activity and exertion patient remains on IV steroids breathing treatment, denies any cough or sputum production labs reviewed medications reviewed care plan reviewed as well patient had some tachycardia earlier today EKG revealed sinus tachycardia likely related to bronchodilator end-stage lung disease and severe COPD emphysema 02/17/2018, patient seen eval reexamined during the rounds clinically patient has been doing slightly better in terms of breathing at rest but however gets very short of breath on activity and exertion is still left cough which is mostly dry and nonproductive, patient does have feeling of intense shortness of breath at rest as well as on activity and exertion, she has been started on IV steroids breathing treatment antibiotics home medication has been resumed 62-year-old with end-stage lung disease and severe COPD emphysema patient has been extensive a smoker but lately have his stopped smoking, patient is oxygen dependent and prednisone dependent end-stage lung disease related to COPD, for the last 4-5 days started noting increasing shortness of breath does have feeling of congestion symptoms of progressive and until comes to appointment she came into the hospital for further evaluation, patient has been on maintenance prednisone which has been tapered from 20 mg daily to alternate 10 and 20 patient attributes tapering her steroids to current exacerbation, she denies any contact, she has received her flu shot and pneumonia shot, on specific questioning she denies any seizure activity loss of consciousness) denies any chest pain or radiation of pain denies any hemoptysis denies any bowel or bladder dysfunction, patient has been using her nebulizer therapy and a regular basis which does help Objective - Vital Signs Vital signs: Vital Signs Temp 97.9 F 02/21/18 11:33 Pulse 86 02/21/18 11:43 Resp 20 11/30/18 11:33 BP 128/68 02/21/18 11:33 Pulse Ox 98 02/21/18 11:33 Intake & Output 02/20/18 02/21/18 02/21/18 18:59 06:59 18:59 Intake Total 10 850 Balance 10 850 Weight 56 kg Intake: IV 10 .9 flush 10 Oral 850 Other: Voiding Method Toilet Toilet # Voids 3 1 3 - Exam Constitutional General appearance: average body habitus, cooperative, disheveled, mild distress - EENT Eyes: EOMI, PERRLA, normal appearance ENT: normal oropharynx Ears: bilateral: normal - Neck Neck: normal ROM Carotids: bilateral: upstroke normal, upstroke bounding, bruit absent - Respiratory Respiratory: bilateral: diminished, rhonchi, wheezing, negative: dullness, rales - Cardiovascular Heart sounds: normal: S1, S2 - Gastrointestinal General gastrointestinal: decreased bowel sounds, normal bowel sounds - Integumentary Integumentary: normal turgor - Neurologic Neurologic: CNII-XII intact - Musculoskeletal Musculoskeletal: gait normal, generalized weakness, strength equal bilaterally - Psychiatric Psychiatric: A&O x's 3, appropriate affect, intact judgment & insight - Labs CBC & Chem 7: 02/18/18 07:12 02/19/18 07:36 Assessment and Plan Assessment: Acute COPD exacerbation Sinus tachycardia multifactorial related to bronchodilator as well as end-stage lung disease second to severe COPD emphysema Acute on chronic hypoxic respiratory failure Prednisone-dependent and home oxygen dependent severe COPD End-stage lung disease second to severe COPD emphysema Likely developing cor pulmonale Generalized anxiety disorder Hypertension Restless leg syndrome Plan: Continue current plan of care IV steroids, can be changed to prednisone 20 daily at time of discharged Continue long-acting beta 2 agonist Continue inhaled corticosteroid via nebulizer Agree with broad-spectrum antibiotics Arrange for noninvasive ventilation at night and when necessary during the day as outpatient for severe end-stage lung disease due to severe symptomatic COPD, Time with Patient: Greater than 30
[2018-02-22] MEDS: methylPREDNISolone SOD SUCCI 40 MG/ML 1 ML VIAL IV SCH ×3 (00:25→15:42)
[2018-02-22] MEDS: ALPRAZolam 0.25 MG TAB PO PRN ×3 (05:18→20:31)
[2018-02-22] MEDS: traMADol 50 MG TAB PO PRN ×2 (08:13→16:51)
[2018-02-22] MEDS: HEPARIN SODIUM,PORCINE 5,000 UNIT/ML 1 ML VIAL SQ SCH ×2 (08:16→20:32)
[2018-02-22] MEDS: PANTOPRAZOLE 40 MG TABLET PO SCH (08:16)
[2018-02-22] MEDS: METOPROLOL TARTRATE 25 MG TAB PO SCH ×2 (08:16→20:32)
[2018-02-22] MEDS: FORMOTEROL FUMARATE 20 MCG/2 ML NEBU INHALATION SCH ×2 (08:33→21:59)
[2018-02-22] MEDS: IPRATROPIUM-ALBUTEROL 3 ML NEB INHALATION SCH ×4 (08:33→21:58)
[2018-02-22] MEDS: BUDESONIDE 0.5 MG/2 ML NEBU INHALATION SCH ×2 (08:33→21:59)
[2018-02-23] MEDS: methylPREDNISolone SOD SUCCI 40 MG/ML 1 ML VIAL IV SCH ×2 (00:05→08:31)
--- NOTE | 2018-02-23 01:26 | PN ---
PROGRESS NOTE DATE OF SERVICE: 02/22/2018 I am covering for Dr. Piña. This 62-year-old woman was admitted with COPD exacerbation, being closely monitored. No chest pain. No palpitations. No fever. EXAM: Alert and oriented. Pulse 66, blood pressure 119/60, respiration 18, temperature 97.8, pulse ox 98% on room air. HEENT: Conjunctivae normal. Oral mucosa moist. NECK: No jugular venous distention. No lymph node enlargement. CARDIOVASCULAR: S1, S2. RESPIRATORY: Diminished breath sounds at the bases. Bilateral scattered rhonchi, expiratory wheezing and crackles. ABDOMEN: Soft, nontender. LEGS: No swelling. NERVOUS SYSTEM: No focal deficits. LABS: WBC ntd, hemoglobin 12.5, sodium 138, potassium 4.3. ASSESSMENT: 1. Chronic obstructive pulmonary disease acute exacerbation with acute tracheobronchitis. 2. Generalized medical debility. 3. Sinus tachycardia. 4. Steroid dependent COPD. 5. History of anxiety. 6. Hypertension. 7. Restless legs syndrome. RECOMMENDATIONS: Recommend to continue current management and continue symptomatic treatment. Continue with IV steroids. Continue with bronchodilators. Closely follow with Dr. Huang. Further recommendations to follow. MMODL / IJN: [id number] / MTDKendell
[2018-02-23] MEDS: HEPARIN SODIUM,PORCINE 5,000 UNIT/ML 1 ML VIAL SQ SCH ×2 (08:26→20:36)
[2018-02-23] MEDS: PANTOPRAZOLE 40 MG TABLET PO SCH (08:31)
[2018-02-23] MEDS: METOPROLOL TARTRATE 25 MG TAB PO SCH ×2 (08:31→20:35)
[2018-02-23] MEDS: traMADol 50 MG TAB PO PRN (08:33)
[2018-02-23] MEDS: IPRATROPIUM-ALBUTEROL 3 ML NEB INHALATION SCH ×4 (08:59→20:53)
[2018-02-23] MEDS: BUDESONIDE 0.5 MG/2 ML NEBU INHALATION SCH ×2 (08:59→20:53)
[2018-02-23] MEDS: FORMOTEROL FUMARATE 20 MCG/2 ML NEBU INHALATION SCH ×2 (08:59→20:53)
[2018-02-23] MEDS: predniSONE 20 MG TAB PO SCH (09:26)
[2018-02-23] MEDS: ALPRAZolam 0.25 MG TAB PO PRN ×2 (09:27→18:37)
--- NOTE | 2018-02-23 19:13 | PN ---
PROGRESS NOTE DATE OF SERVICE: 02/23/2018 I am covering for Dr. Piña. This 62-year-old woman was admitted with COPD exacerbation, is feeling much better. No chest pain. No palpitations. No fever. EXAM: Alert and oriented x3. Pulse is 71, blood pressure 115/60, respirations 18. temperature 98.2, pulse ox 98% on 2 L. HEENT: Conjunctivae normal. Oral mucosa moist. NECK: No jugular venous distention. No lymph node enlargement. CARDIOVASCULAR: S1, S2. RESPIRATORY: Diminished breath sounds at the bases. Scattered rhonchi, no crackles. ABDOMEN: Soft, nontender. LEGS: No swelling. NERVOUS SYSTEM: No focal deficits. LABS: WBC 16. Other labs are noted. ASSESSMENT: 1. Chronic obstructive pulmonary disease acute exacerbation with acute purulent tracheobronchitis. 2. Generalized medical debility. 3. Sinus tachycardia. 4. Steroid dependent chronic obstructive pulmonary disease. 5. History of anxiety. 6. Hypertension. 7. History of restrictive lung disease. RECOMMENDATIONS: Continue current management and symptomatic treatment. Otherwise, at this time I recommend continue the bronchodilators, continue with steroids and closely follow and Dr. Piña will follow. The patient is on p.o. steroids at this time. Further recommendations to follow. MMODL / IJN: [id number] /
[2018-02-23 20:45] VITALS: RESP 20
[2018-02-24] MEDS: ALPRAZolam 0.25 MG TAB PO PRN ×2 (00:33→08:02)
[2018-02-24 05:10] VITALS: BP 102/61; TEMP 97.7
--- NOTE | 2018-02-24 07:22 | P.DS ---
Providers Date of admission: 02/18/18 15:34 Attending physician: Kurtis Piña Consults: 02/15/18 18:36 Consult Physician Routine Consulting Provider: Cayden Huang Consult Reason/Comments: copd exacerbation Do you want consulting provider notified?: Yes Primary care physician: Kurtis Piña - Discharge Diagnosis(es) (1) Acute exacerbation of chronic obstructive airways disease Current Visit: No Status: Acute (2) Debility Current Visit: No Status: Acute Hospital Course: This discharge summary 62-year-old white female essentially admitted for exacerbation COPD. She had quit a long course given her endstage element. She is now discharged in stable condition with home BiPAP device. The patient is to follow-up with me in about 5-7 days. Prognosis is guarded secondary to multiple comorbidities. Patient Condition at Discharge: Fair Plan - Discharge Summary New Discharge Prescriptions: New predniSONE 20 mg PO DAILY #30 tab Continue Budesonide [Pulmicort] 0.5 mg INHALATION RT-BID nebu Arformoterol Tartrate [Brovana] 15 mcg INHALATION RT-BID Albuterol Inhaler [Ventolin Hfa Inhaler] 2 puff INHALATION RT-QID PRN PRN Reason: Shortness Of Breath Metoprolol Tartrate 25 mg PO BID Pantoprazole [Protonix] 40 mg PO AC-BRKFST #30 tablet. Ipratropium-Albuterol Nebulize [Duoneb 0.5 mg-3 mg/3 ml Soln] 3 ml INHALATION RT-QID ALPRAZolam [Xanax] 0.25 mg PO QID #120 tablet rOPINIRole HCL [Requip] 0.5 mg PO HS Cholecalciferol [Vitamin D3] 1,000 unit PO DAILY predniSONE 20 mg PO DAILY Zinc 50 mg PO DAILY Magnesium 200 mg PO DAILY Discharge Medication List Budesonide [Pulmicort] 0.5 mg INHALATION RT-BID nebu 12/17/14 [Rx] Arformoterol Tartrate [Brovana] 15 mcg INHALATION RT-BID 04/14/15 [History] Albuterol Inhaler [Ventolin Hfa Inhaler] 2 puff INHALATION RT-QID PRN 09/03/16 [ History] Metoprolol Tartrate 25 mg PO BID 09/03/16 [History] Pantoprazole [Protonix] 40 mg PO AC-BRKFST #30 tablet. 06/15/17 [Rx] Ipratropium-Albuterol Nebulize [Duoneb 0.5 mg-3 mg/3 ml Soln] 3 ml INHALATION RT -QID 06/20/17 [History] ALPRAZolam [Xanax] 0.25 mg PO QID #120 tablet 07/04/17 [Rx] rOPINIRole HCL [Requip] 0.5 mg PO HS 12/18/17 [History] Cholecalciferol [Vitamin D3] 1,000 unit PO DAILY 02/15/18 [History] Magnesium 200 mg PO DAILY 02/15/18 [History] Zinc 50 mg PO DAILY 02/15/18 [History] predniSONE 20 mg PO DAILY 02/15/18 [History] predniSONE 20 mg PO DAILY #30 tab 02/20/18 [Rx] Follow up Appointment(s)/Referral(s): Cayden Huang MD [STAFF PHYSICIAN] - 02/25/18 2:15 pm Kurtis Piña MD [Primary Care Provider] - 3 Days Patient Instructions/Handouts: Prednisone (By mouth), COPD (Chronic Obstructive Pulmonary Disease) (DC) Activity/Diet/Wound Care/Special Instructions: prescription from Dr. Huang for prednisone 20mg PO daily sent down to [facility] on 02/20/18 @ [id number]- (already entered by Jigna on discharge instructions) Discharge Disposition: HOME SELF-CARE
[2018-02-24] MEDS: HEPARIN SODIUM,PORCINE 5,000 UNIT/ML 1 ML VIAL SQ SCH (07:57)
[2018-02-24] MEDS: FORMOTEROL FUMARATE 20 MCG/2 ML NEBU INHALATION SCH (08:00)
[2018-02-24] MEDS: IPRATROPIUM-ALBUTEROL 3 ML NEB INHALATION SCH ×2 (08:00→11:14)
[2018-02-24] MEDS: BUDESONIDE 0.5 MG/2 ML NEBU INHALATION SCH (08:00)
[2018-02-24] MEDS: predniSONE 20 MG TAB PO SCH (08:01)
[2018-02-24] MEDS: METOPROLOL TARTRATE 25 MG TAB PO SCH (08:01)
[2018-02-24] MEDS: PANTOPRAZOLE 40 MG TABLET PO SCH (08:01)
[2018-02-24 08:21] VITALS: PULSE 68
== END 2018-02-24 11:25 | disposition home or self-care (01) | DRG 190 ==
LOC: EC 15:47 → 1SOBS 18:36 → 3NMEDONC 02-16 19:06 → OBSVTOIN 02-18 15:34
PROVIDERS: ADMIT Family Medicine; ATTEND Family Medicine
DX: J44.1 Chronic obstructive pulmonary disease with (acute) exacerbation (principal); J96.21 Acute and chronic respiratory failure with hypoxia; J44.0 Chronic obstructive pulmonary disease with (acute) lower respiratory infection; J20.9 Acute bronchitis, unspecified; I27.29 Other secondary pulmonary hypertension; M81.0 Age-related osteoporosis without current pathological fracture; F41.1 Generalized anxiety disorder; G25.81 Restless legs syndrome; I10 Essential (primary) hypertension; Z79.52 Long term (current) use of systemic steroids; Z80.0 Family history of malignant neoplasm of digestive organs; Z80.1 Family history of malignant neoplasm of trachea, bronchus and lung; Z80.3 Family history of malignant neoplasm of breast; Z80.52 Family history of malignant neoplasm of bladder; Z82.49 Family history of ischemic heart disease and other diseases of the circulatory system; Z87.891 Personal history of nicotine dependence; Z99.81 Dependence on supplemental oxygen; Z79.899 Other long term (current) drug therapy; Z87.01 Personal history of pneumonia (recurrent); Z88.1 Allergy status to other antibiotic agents; Z88.0 Allergy status to penicillin; Z88.8 Allergy status to other drugs, medicaments and biological substances; R00.0 Tachycardia, unspecified
CPT/HCPCS: 36415; 71046; 80053; 82550; 82553; 82803; 83735; 84484; 85025; 85027; 85610; 85730; 93005; 94640; 94660; 94760; 96374; 99285

== ENCOUNTER 2018-07-04 11:56 | Inpatient (IN) | payer BC ==
[2018-07-04] MEDS ORDERED: ALBUTEROL NEBULIZED 2.5 MG/3 ML INHALATION STA (12:22)
[2018-07-04] MEDS ORDERED: methylPREDNISolone SOD SUCCI 125 MG/2 ML VIAL IV STA (12:22)
[2018-07-04] MEDS ORDERED: IPRATROPIUM 0.5 MG/2.5 ML NEBU INHALATION STA (12:22)
--- NOTE | 2018-07-04 12:29 | ED ---
SOB HPI <Ernesto Linder - Last Filed: 07/04/18 14:47> - General Source: patient Mode of arrival: wheelchair Limitations: no limitations <Linda Matt - Last Filed: 07/04/18 15:19> - General Chief Complaint: Shortness of Breath Stated Complaint: Sob/coughing Time Seen by Provider: 07/04/18 12:09 - History of Present Illness Initial Comments: 63-year-old female patient with past medical history significant for COPD presents to the emergency department today for evaluation of increasing shortness of breath, cough, and sputum production. Patient states his last 3 days she's had progressively worsening shortness of breath, states it's difficult to perform any type of physical activity. Patient states that she becomes quite short of breath when she has coughing episodes. She denies any fevers or chills with this. States she did have a sore throat for 3 days but that has resolved. Patient is oxygen dependent wears 2 L at home and also uses a Trilogy machine to sleep. Patient states she has been doing breathing treatments at home but it does not seem to be helping. She does take 10 mg of prednisone daily. Patient denies any recent rash, chest pain, abdominal pain, nausea, vomiting, diarrhea, constipation, back pain, numbness, tingling, dizziness, weakness, hematuria, dysuria, urinary urgency, urinary frequency, headache, visual changes, or any other complaints. (Linda Matt) - Related Data Home Medications Medication Instructions Recorded Confirmed Arformoterol Tartrate [Brovana] 15 mcg INHALATION RT-BID 04/14/15 07/04/18 Albuterol Inhaler [Ventolin Hfa 2 puff INHALATION RT-QID PRN 09/03/16 07/04/18 Inhaler] Metoprolol Tartrate 25 mg PO BID 09/03/16 07/04/18 rOPINIRole HCL [Requip] 0.5 mg PO HS 12/18/17 07/04/18 Albuterol Sulfate [Proair Hfa] 1 - 2 puff INHALATION RT-Q6H PRN 07/04/1806/23 Umeclidinium Brm/Vilanterol Tr 1 puff INHALATION RT-DAILY 07/04/18 07/04/18 [Anoro Ellipta 62.5-25 Mcg INH] buPROPion HCL [Wellbutrin SR] 150 mg PO BID 07/04/18 07/04/18 predniSONE 10 mg PO DAILY 07/04/18 07/04/18 Previous Rx's Medication Instructions Recorded Budesonide [Pulmicort] 0.5 mg INHALATION RT-BID nebu 12/17/14 Pantoprazole [Protonix] 40 mg PO AC-BRKFST #30 tablet. 06/15/17 ALPRAZolam [Xanax] 0.25 mg PO QID #120 tablet 07/04/17 Allergies Allergy/AdvReac Type Severity Reaction Status Date / Time levofloxacin [From Levaquin] Allergy Rash/Hives Verified 07/04/18 12:18 montelukast [From Singulair] Allergy Itching Verified 07/04/18 12:18 Penicillins Allergy Rash/Hives Verified 07/04/18 12:18 Review of Systems ROS Other: All systems not noted in ROS Statement are negative. <Ernesto Linder - Last Filed: 07/04/18 14:47> ROS Other: All systems not noted in ROS Statement are negative. <Linda Matt - Last Filed: 07/04/18 15:19> ROS Statement: Those systems with pertinent positive or pertinent negative responses have been documented in the HPI. Past Medical History Past Medical History: COPD, Osteoarthritis (OA), Pneumonia Additional Past Medical History / Comment(s): HOME 02 2 LITERS N/C, EDENTULOUS, previous spine fracture did pt no brace worn. 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 History of Any Multi-Drug Resistant Organisms: None Reported Past Surgical History: Appendectomy Additional Past Surgical History / Comment(s): LASER EYE SX, lt breast bx-neg. Previous colonoscopy done prior to 1999. Past Anesthesia/Blood Transfusion Reactions: No Reported Reaction Past Psychological History: Anxiety Smoking Status: Former smoker Past Alcohol Use History: None Reported Past Drug Use History: None Reported - Past Family History Mother Family Medical History: Cancer Additional Family Medical History / Comment(s): breast/BLADDER CA Father Family Medical History: Cancer, Myocardial Infarction ([place]) Additional Family Medical History / Comment(s): BRAIN TUMORS. Grandfather had colon cancer. <Linda Matt - Last Filed: 07/04/18 15:19> General Exam Limitations: no limitations General appearance: alert, in no apparent distress, other (Physical well- developed, well-nourished adult female patient in no acute distress. Vital signs upon presentation are temperature 98.5F, pulse 71, respirations 26, blood pressure 128/59, pulse ox 99% on 2 L nasal cannula.) Eye exam: Present: normal appearance, PERRL, EOMI. Absent: scleral icterus, conjunctival injection, periorbital swelling ENT exam: Present: normal exam, normal oropharynx, mucous membranes moist Respiratory exam: Present: decreased breath sounds, other (Pursed lip breathing, abdominal accessory muscle use, tachypnea). Absent: normal lung sounds bilaterally, respiratory distress, wheezes, rales, rhonchi, stridor Cardiovascular Exam: Present: regular rate, normal rhythm, normal heart sounds. Absent: systolic murmur, diastolic murmur, rubs, gallop, clicks GI/Abdominal exam: Present: soft, normal bowel sounds. Absent: distended, tenderness, guarding, rebound, rigid <Linda Matt - Last Filed: 07/04/18 15:19> Course <Ernesto Linder - Last Filed: 07/04/18 14:47> Vital Signs 07/04/18 07/04/18 07/04/18 12:05 12:43 13:14 Temperature 98.5 F Pulse Rate 71 59 L 61 Respiratory 18 Rate Blood Pressure 128/59 O2 Sat by Pulse 99 Oximetry 07/04/18 13:57 Temperature Pulse Rate 73 Respiratory 24 Rate Blood Pressure 125/50 O2 Sat by Pulse 99 Oximetry - Reevaluation(s) Reevaluation #1: 07/04/18 14:47 And P supervision: I proceeded [id number] evaluation the patient she did present with complaints of 3 days of progressively worsening shortness of breath. She does have a history of COPD. In spite of aggressive therapy in emergency department she was not able to get much improvement. She will be admitted I did discuss the case with Dr. Piña. I do agree with the assessment and plan. (Ernesto Linder) Medical Decision Making - Lab Data Result diagrams: 07/04/18 12:35 07/04/18 12:35 <Ernesto Linder - Last Filed: 07/04/18 14:47> - Lab Data Result diagrams: 07/04/18 12:35 07/04/18 12:35 - EKG Data -: EKG Interpreted by Me - Radiology Data Radiology results: report reviewed, image reviewed <Linda Matt - Last Filed: 07/04/18 15:19> - Medical Decision Making 63-year-old female patient presents to the emergency department today for e valuation of shortness of breath and cough with sputum production. Physical examination does reveal decreased lung sounds in the posterior lung price. Patient does exhibit pursed lip breathing, abdominal accessory muscle use, and tachypnea. She did have a prolonged breathing treatment 7.5 mg of albuterol. I did give 125 mg of Solu-Medrol. Upon reevaluation patient reports that she is not feeling any better. Labs reviewed and did reveal mildly elevated white count at 13.6 which is likely reactive from her chronic steroid use. Chest x- ray shows no acute cardiopulmonary process. Patient be admitted for COPD exacerbation. We will continue IV steroids and breathing treatments. (Linda Matt) - Lab Data Lab Results 07/04/18 07/04/18 07/04/18 Range/Units 12:35 12:35 12:35 WBC 13.5 H (3.8-10.6) k/uL RBC 4.73 (3.80-5.40) m/uL Hgb 14.1 (11.4-16.0) gm/dL Hct 44.2 (34.0-46.0) % MCV 93.3 (80.0-100.0) fL MCH 29.9 (25.0-35.0) pg MCHC 32.0 (31.0-37.0) g/dL RDW 13.9 (11.5-15.5) % Plt Count 210 (150-450) k/uL Neutrophils % 79 % Lymphocytes % 15 % Monocytes % 4 % Eosinophils % 1 % Basophils % 0 % Neutrophils # 10.7 H (1.3-7.7) k/uL Lymphocytes # 2.0 (1.0-4.8) k/uL Monocytes # 0.5 (0-1.0) k/uL Eosinophils # 0.1 (0-0.7) k/uL Basophils # 0.1 (0-0.2) k/uL PT 10.0 (9.0-12.0) sec INR 0.9 (<1.2) APTT 25.1 (22.0-30.0) sec Sodium 140 (137-145) mmol/L Potassium 4.4 (3.5-5.1) mmol/L Chloride 103 (98-107) mmol/L Carbon Dioxide 29 (22-30) mmol/L Anion Gap 8 mmol/L BUN 18 H (7-17) mg/dL Creatinine 0.69 (0.52-1.04) mg/dL Est GFR (CKD-EPI)AfAm >90 (>60 ml/min/1.73 sqM) Est GFR (CKD-EPI)NonAf >90 (>60 ml/min/1.73 sqM) Glucose 108 H (74-99) mg/dL Calcium 9.9 (8.4-10.2) mg/dL Magnesium 1.8 (1.6-2.3) mg/dL Total Bilirubin 0.4 (0.2-1.3) mg/dL AST 16 (14-36) U/L ALT 26 (9-52) U/L Alkaline Phosphatase 52 (38-126) U/L Troponin I (0.000-0.034) ng/mL Total Protein 6.6 (6.3-8.2) g/dL Albumin 4.5 (3.5-5.0) g/dL 07/04/18 Range/Units 12:35 WBC (3.8-10.6) k/uL RBC (3.80-5.40) m/uL Hgb (11.4-16.0) gm/dL Hct (34.0-46.0) % MCV (80.0-100.0) fL MCH (25.0-35.0) pg MCHC (31.0-37.0) g/dL RDW (11.5-15.5) % Plt Count (150-450) k/uL Neutrophils % % Lymphocytes % % Monocytes % % Eosinophils % % Basophils % % Neutrophils # (1.3-7.7) k/uL Lymphocytes # (1.0-4.8) k/uL Monocytes # (0-1.0) k/uL Eosinophils # (0-0.7) k/uL Basophils # (0-0.2) k/uL PT (9.0-12.0) sec INR (<1.2) APTT (22.0-30.0) sec Sodium (137-145) mmol/L Potassium (3.5-5.1) mmol/L Chloride (98-107) mmol/L Carbon Dioxide (22-30) mmol/L Anion Gap mmol/L BUN (7-17) mg/dL Creatinine (0.52-1.04) mg/dL Est GFR (CKD-EPI)AfAm (>60 ml/min/1.73 sqM) Est GFR (CKD-EPI)NonAf (>60 ml/min/1.73 sqM) Glucose (74-99) mg/dL Calcium (8.4-10.2) mg/dL Magnesium (1.6-2.3) mg/dL Total Bilirubin (0.2-1.3) mg/dL AST (14-36) U/L ALT (9-52) U/L Alkaline Phosphatase (38-126) U/L Troponin I <0.012 (0.000-0.034) ng/mL Total Protein (6.3-8.2) g/dL Albumin (3.5-5.0) g/dL - EKG Data EKG Comments: EKG obtained at 1305 shows sinus bradycardia with this marked sinus arrhythmia. Ventricular rate is 57, VA interval 124, QRS duration 82, QT 432, QTc 420. No evidence of ST elevation or depression. (Linda Matt) - Radiology Data Two-view x-ray of the chest is obtained. Report was reviewed in entirety. Impression by Dr. Longoria shows no evidence for acute pulmonary disease. (Linda Matt) Disposition <Ernesto Linder - Last Filed: 07/04/18 14:47> Decision to Admit Reason: Admit from EC Decision Date: 07/04/18 Decision Time: 14:29 <Linda Matt - Last Filed: 07/04/18 15:19> Clinical Impression: COPD exacerbation Disposition: ADMITTED IP TO THIS [facility] Condition: Serious
[2018-07-04 13:06] LABS: Basophils # (A) 0.1 k/uL (0-0.2); Basophils % (A) 0 %; Eosinophils # (A) 0.1 k/uL (0-0.7); Eosinophils % (A) 1 %; HCT 44.2 % (34.0-46.0); HGB 14.1 gm/dL (11.4-16.0); Lymphocytes % (A) 15 %; MCH 29.9 pg (25.0-35.0); MCV 93.3 fL (80.0-100.0); Mean Platelet Volume 7.2; Monocytes # (A) 0.5 k/uL (0-1.0); Monocytes % (A) 4 %; Neutrophils # (A) 10.7 k/uL (1.3-7.7); Neutrophils % (A) 79 %; Platelet Count 210 k/uL (150-450); RBC 4.73 m/uL (3.80-5.40); RDW 13.9 % (11.5-15.5); WBC 13.5 k/uL (3.8-10.6)
[2018-07-04 13:10] LABS: INR 0.9 (<1.2); Partial Thromboplastin Time 25.1 sec (22.0-30.0)
[2018-07-04 13:13] LABS: ALT 26 U/L (9-52); AST 16 U/L (14-36); Albumin 4.5 g/dL (3.5-5.0); Alkaline Phosphatase 52 U/L (38-126); Anion Gap 8 mmol/L; Blood Urea Nitrogen 18 mg/dL (7-17); Calcium 9.9 mg/dL (8.4-10.2); Carbon Dioxide 29 mmol/L (22-30); Chloride 103 mmol/L (98-107); Glucose 108 mg/dL (74-99); Magnesium 1.8 mg/dL (1.6-2.3); Potassium 4.4 mmol/L (3.5-5.1); Sodium 140 mmol/L (137-145); Total Bilirubin 0.4 mg/dL (0.2-1.3); Total Protein 6.6 g/dL (6.3-8.2)
--- NOTE | 2018-07-04 13:56 | XR ---
EXAMINATION TYPE: XR chest 2V DATE OF EXAM: 07/04/2018 COMPARISON: 02/15/2018 HISTORY: Shortness of breath TECHNIQUE: Frontal and lateral views of the chest are obtained. FINDINGS: Scattered senescent parenchymal changes noted. Hyperinflation compatible with COPD. No evidence for infiltrate. No evidence for atelectasis. Heart size is stable. Mediastinal structures are stable and grossly unremarkable. No evidence for hilar prominence. Degenerative changes dorsal spine. IMPRESSION: 1. No evidence for acute pulmonary disease.
--- NOTE | 2018-07-04 16:11 | P.HPIM ---
History of Present Illness H&P Date: 07/04/18 Chief Complaint: Exacerbation of COPD This is history and physical on a 63-year-old white female with end-stage COPD. She still tries to be as functional as possible but had cough productive of greenish phlegm starting yesterday evening. Low-grade fever stated. No voiding difficulties but significant headache. All medications were ineffective to quell the continued cough. She's had similar admissions in the past for this. We will go ahead and consult Dr. Huang. No significant fever or chills until this morning. The patient is currently a nonsmoker. Review of Systems Constitutional: Denies chills, Denies fever Eyes: denies blurred vision, denies pain Ears, nose, mouth and throat: Denies headache, Denies sore throat Cardiovascular: Denies chest pain, Denies shortness of breath Respiratory: Reports cough, Reports cough with sputum Gastrointestinal: Denies abdominal pain, Denies diarrhea, Denies nausea, Denies vomiting Genitourinary: Denies dysuria, Denies hematuria Musculoskeletal: Denies myalgias Past Medical History Past Medical History: COPD, Osteoarthritis (OA), Pneumonia Additional Past Medical History / Comment(s): HOME 02 2 LITERS N/C, EDENTULOUS, previous spine fracture did pt no brace worn. 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 History of Any Multi-Drug Resistant Organisms: None Reported Past Surgical History: Appendectomy Additional Past Surgical History / Comment(s): LASER EYE SX, lt breast bx-neg. Previous colonoscopy done prior to 1999. Past Anesthesia/Blood Transfusion Reactions: No Reported Reaction Past Psychological History: Anxiety Smoking Status: Former smoker Past Alcohol Use History: None Reported Past Drug Use History: None Reported - Past Family History Mother Family Medical History: Cancer Additional Family Medical History / Comment(s): breast/BLADDER CA Father Family Medical History: Cancer, Myocardial Infarction ([place]) Additional Family Medical History / Comment(s): BRAIN TUMORS. Grandfather had colon cancer. Medications and Allergies Home Medications Medication Instructions Recorded Confirmed Type Budesonide [Pulmicort] 0.5 mg INHALATION RT-BID nebu 12/17/14 07/04/18 Rx Arformoterol Tartrate [Brovana] 15 mcg INHALATION RT-BID 04/14/15 07/04/18 History Albuterol Inhaler [Ventolin Hfa 2 puff INHALATION RT-QID PRN 09/03/16 07/04/18 History Inhaler] Metoprolol Tartrate 25 mg PO BID 09/03/16 07/04/18 History Pantoprazole [Protonix] 40 mg PO AC-RADHAKFST #30 tablet. 06/15/17 07/04/18 Rx ALPRAZolam [Xanax] 0.25 mg PO QID #120 tablet 07/04/17 07/04/18 Rx rOPINIRole HCL [Requip] 0.5 mg PO HS 12/18/17 07/04/18 History Albuterol Sulfate [Proair Hfa] 1 - 2 puff INHALATION RT-Q6H PRN 07/04/18 07/04/18 History Umeclidinium Brm/Vilanterol Tr 1 puff INHALATION RT-DAILY 07/04/18 07/04/18 History [Anoro Ellipta 62.5-25 Mcg INH] buPROPion HCL [Wellbutrin SR] 150 mg PO BID 07/04/18 07/04/18 History predniSONE 10 mg PO DAILY 07/04/18 07/04/18 History Allergies Allergy/AdvReac Type Severity Reaction Status Date / Time levofloxacin [From Levaquin] Allergy Rash/Hives Verified 07/04/18 12:18 montelukast [From Singulair] Allergy Itching Verified 07/04/18 12:18 Penicillins Allergy Rash/Hives Verified 07/04/18 12:18 Physical Exam Vitals: Vital Signs Temp Pulse Resp BP Pulse Ox 07/04/18 13:57 73 24 125/50 99 07/04/18 13:14 61 07/04/18 12:43 59 L 07/04/18 12:05 98.5 F 71 18 128/59 99 Intake and Output 07/04/18 07/04/18 07/04/18 06:59 14:59 22:59 Other: Weight 58.967 kg - Constitutional General appearance: no acute distress - EENT Eyes: EOMI - Respiratory Respiratory: bilateral: diminished - Cardiovascular Rhythm: regular Heart sounds: normal: S1, S2 Abnormal Heart Sounds: S3 Gallop - Gastrointestinal General gastrointestinal: soft, no splenomegaly, no tenderness - Integumentary Integumentary: no cyanotic, no rash - Neurologic Neurologic: CNII-XII intact, focal deficits - Musculoskeletal Musculoskeletal: strength equal bilaterally Results CBC & Chem 7: 07/04/18 12:35 07/04/18 12:35 Labs: Abnormal Lab Results - Last 24 Hours (Table) 07/04/18 07/04/18 Range/Units 12:35 12:35 WBC 13.5 H (3.8-10.6) k/uL Neutrophils # 10.7 H (1.3-7.7) k/uL BUN 18 H (7-17) mg/dL Glucose 108 H (74-99) mg/dL Assessment and Plan (1) Acute exacerbation of chronic obstructive airways disease Current Visit: No Status: Acute Code(s): J44.1 - CHRONIC OBSTRUCTIVE PULMONARY DISEASE W (ACUTE) EXACERBATION SNOMED Code(s): 535979591 (2) Debility Current Visit: No Status: Acute Code(s): R53.81 - OTHER MALAISE SNOMED Code(s): 52684241 Plan: Continue current regimen of protocol. Consult pulmonology. Check CBC and CMP in a.m. Reconcile medications. The patient has requested tramadol Tylenol when necessary for headache pain most likely related to steroid use. Dr. Sommers's group will be covering for the weekend. At this time, she is a full code. Time with Patient: Greater than 30
[2018-07-04] MEDS: IPRATROPIUM-ALBUTEROL 3 ML NEB INHALATION SCH ×2 (16:34→19:40)
[2018-07-04] MEDS: methylPREDNISolone SOD SUCCI 125 MG/2 ML VIAL IV SCH ×2 (17:58→23:43)
[2018-07-04] MEDS: INSULIN ASPART (NovoLOG) 100 UNIT/ML VIAL SQ SCH ×2 (17:58→23:37)
[2018-07-04] MEDS: BENZONATATE 100 MG CAP PO SCH ×2 (17:58→21:44)
[2018-07-04 18:03] LABS: Glucose,Whole Blood 231 mg/dL (75-99)
[2018-07-04] MEDS ORDERED: METOPROLOL TARTRATE 25 MG TAB PO SCH (21:00)
[2018-07-04] MEDS ORDERED: ACETAMINOPHEN TAB 325 MG TAB PO STA (21:24)
[2018-07-04] MEDS: buPROPion SR 150 MG TABLET.ER PO SCH (21:44)
[2018-07-04] MEDS: ALPRAZolam 0.25 MG TAB PO PRN (21:51)
[2018-07-04 23:18] LABS: Glucose,Whole Blood 117 mg/dL (75-99)
[2018-07-04] MEDS: IPRATROPIUM-ALBUTEROL 3 ML NEB INHALATION PRN (23:58)
--- NOTE | 2018-07-05 00:17 | CONS ---
CONSULTATION Rohit Anaya is a 63 -year-old female with history of severe asthma, who came into the ED with increasing shortness of breath. She subsequently was seen in the ER and admitted for further evaluation when she did not improve with conservative care. She denied any fever or chills. Does have allergies off and on during the year. PAST MEDICAL HISTORY: Positive for COPD. No clear history of asthma. FAMILY HISTORY: Positive for emphysema and COPD in her mother. SOCIAL HISTORY: Patient smoked 1-2 packs of cigarettes per day. She quit smoking in 2014. MEDICATIONS: Prior to admission were: 1. Ropinirole, prednisone 10 mg a day. 2. Bupropion. 3. with vilanterol in the form of Anoro Ellipta. 4. Lipitor.;. 5. Protonix. 6. Metoprolol tartrate. 7. Pulmicort. 8. Brovana. 9. ProAir. 10.Ventolin HFA. 11.Xanax. REVIEW OF SYSTEMS: Noncontributory other than for what is described in history of present illness and past medical history patient. ALLERGIC: LEVAQUIN, MONTELUKAST AND PENICILLIN. PHYSICAL EXAMINATION: Her blood pressure is 128/78, respiratory rate of 18, pulse rate is 77, temperature 92 degrees Fahrenheit, O2 saturation on room air is 97%. HEENT reveals pupils equal. Chest with decreased breath sounds with prolonged expiration. There is end-expiratory wheeze. Cardiovascular system is S1, S2. Abdomen is soft. There is no edema white count is 13.5, hemoglobin of 14, with 10.7 1000 neutrophils. Sodium is 140, potassium 4.4, chloride 103, bicarb 29, BUN 18, creatinine 0.69. X-RAY: Chest x-ray done today shows no evidence of acute pulmonary disease. IMPRESSION: At this time: 1. Severe chronic obstructive pulmonary disease with acute exacerbation. 2. Possible occult asthma. 3. Medical debility. At this point in time, would keep her on GI and DVT prophylaxis. IV and aerosolized steroids, bronchodilators. Resume her home medications. Depending on how she does we should make further changes to her care. She was counseled regarding her condition and this approach. MMODL / IJN: [id number] /
[2018-07-05] MEDS: methylPREDNISolone SOD SUCCI 125 MG/2 ML VIAL IV SCH ×4 (06:28→23:24)
[2018-07-05] MEDS: ALPRAZolam 0.25 MG TAB PO PRN ×3 (06:28→17:17)
[2018-07-05] MEDS: ACETAMINOPHEN TAB 325 MG TAB PO PRN (06:29)
[2018-07-05 07:13] LABS: Glucose,Whole Blood 136 mg/dL (75-99)
[2018-07-05] MEDS: BUDESONIDE 0.5 MG/2 ML NEBU INHALATION SCH ×2 (07:39→19:55)
[2018-07-05] MEDS: IPRATROPIUM-ALBUTEROL 3 ML NEB INHALATION SCH ×4 (07:39→19:55)
[2018-07-05 08:47] LABS: HCT 43.2 % (34.0-46.0); HGB 14.1 gm/dL (11.4-16.0); MCH 30.3 pg (25.0-35.0); MCHC 32.6 g/dL (31.0-37.0); MCV 92.9 fL (80.0-100.0); Mean Platelet Volume 7.5; Platelet Count 223 k/uL (150-450); RBC 4.65 m/uL (3.80-5.40); RDW 14.8 % (11.5-15.5); WBC 10.6 k/uL (3.8-10.6)
[2018-07-05 08:54] LABS: ALT 23 U/L (9-52); AST 16 U/L (14-36); Albumin 4.7 g/dL (3.5-5.0); Alkaline Phosphatase 49 U/L (38-126); Anion Gap 10 mmol/L; Blood Urea Nitrogen 19 mg/dL (7-17); Calcium 10.1 mg/dL (8.4-10.2); Carbon Dioxide 28 mmol/L (22-30); Chloride 100 mmol/L (98-107); Glucose 217 mg/dL (74-99); Potassium 4.1 mmol/L (3.5-5.1); Sodium 138 mmol/L (137-145); Total Bilirubin 0.5 mg/dL (0.2-1.3); Total Protein 6.9 g/dL (6.3-8.2)
[2018-07-05] MEDS: PANTOPRAZOLE 40 MG TABLET PO SCH (09:18)
[2018-07-05] MEDS: METOPROLOL TARTRATE 25 MG TAB PO SCH (09:18)
[2018-07-05] MEDS: BENZONATATE 100 MG CAP PO SCH ×3 (09:18→20:57)
[2018-07-05] MEDS: HEPARIN SODIUM,PORCINE 5,000 UNIT/ML 1 ML VIAL SQ SCH ×3 (09:18→20:44)
[2018-07-05] MEDS: INSULIN ASPART (NovoLOG) 100 UNIT/ML VIAL SQ SCH ×4 (09:19→20:43)
[2018-07-05] MEDS: buPROPion SR 150 MG TABLET.ER PO SCH ×2 (09:19→20:57)
[2018-07-05 11:39] LABS: Glucose,Whole Blood 181 mg/dL (75-99)
--- NOTE | 2018-07-05 15:05 | PN ---
PROGRESS NOTE DATE OF SERVICE: 07/05/2018 The patient has been hemodynamically stable. She is bringing up greenish phlegm. On physical examination, respiratory rate is 20, pulse rate 85, temperature 98, blood pressure 115/56, O2 saturation on 2 L by nasal cannula 95%. HEENT is unremarkable. Chest with prolonged exhalation. Cardiovascular system is in S1, S2. Abdomen is soft. There is no edema. White count is 10.6, hemoglobin 14.1, sodium 138, potassium 4.1, chloride 100, bicarb 28, BUN 19, creatinine 0.77. IMPRESSION AT THIS TIME: 1. Severe chronic obstructive pulmonary disease with acute exacerbation. 2. Asthmatic component is likely. Continue IV steroids, bronchodilators, aerosolized steroids, GI and DVT prophylaxis. I agree with Rocephin at this time. Her prognosis is fair. MMODL / IJN: [id number] /
[2018-07-05 16:58] LABS: Glucose,Whole Blood 125 mg/dL (75-99)
--- NOTE | 2018-07-05 18:57 | PN ---
PROGRESS NOTE DATE OF SERVICE: 07/22/2018 I am covering for Dr. Piña. This 65-year-old woman admitted with COPD exacerbation as well as acute purulent tracheobronchitis, being closely monitored. No chest pain. No palpitations. No fever. EXAM: Alert and oriented times three. Pulse 80. Blood pressure 105/60, respiration 18, temp 97.2, pulse ox 98% on room air. HEENT: Conjunctivae normal. NECK: No jugular venous distention. CARDIOVASCULAR: S1, S2 muffled. RESPIRATORY: Breath sounds diminished in the bases. A few scattered rhonchi and crackles. ABDOMEN: Soft, nontender. LEGS: No edema. No swelling. CENTRAL NERVOUS SYSTEM: No focal deficits. LABS: CBC noted. BMP, glucose 217. ASSESSMENT: 1. Chronic obstructive pulmonary disease acute exacerbation with acute purulent tracheobronchitis. 2. Degenerative joint disease. 3. History of pneumonia. 4. History of chronic hypoxic respiratory failure. 5. Appendectomy. 6. History of anxiety. RECOMMENDATIONS AND DISCUSSION: Recommend to continue current medications, management and symptomatic treatment. Continue with IV steroids. Continue the bronchodilators. Closely follow with Pulmonary. DVT prophylaxis. Empiric antibiotics. Further recommendations to follow. Resume the home medications. DVT prophylaxis. MMODL / IJN: [id number] /
[2018-07-05 20:25] LABS: Glucose,Whole Blood 123 mg/dL (75-99)
[2018-07-05] MEDS ORDERED: DRY MOUTH SPRAY 44.3 SPRAY/44.3 ML SPRAY MUCOUS MEM PRN (21:01)
[2018-07-06] MEDS: IPRATROPIUM-ALBUTEROL 3 ML NEB INHALATION PRN (03:52)
[2018-07-06] MEDS: methylPREDNISolone SOD SUCCI 125 MG/2 ML VIAL IV SCH ×2 (06:05→13:34)
[2018-07-06 06:50] LABS: Glucose,Whole Blood 142 mg/dL (75-99)
[2018-07-06] MEDS: IPRATROPIUM-ALBUTEROL 3 ML NEB INHALATION SCH ×4 (07:13→20:26)
[2018-07-06] MEDS: BUDESONIDE 0.5 MG/2 ML NEBU INHALATION SCH ×2 (07:13→20:27)
[2018-07-06] MEDS: HEPARIN SODIUM,PORCINE 5,000 UNIT/ML 1 ML VIAL SQ SCH ×2 (08:06→21:24)
[2018-07-06] MEDS: BENZONATATE 100 MG CAP PO SCH ×3 (08:07→21:24)
[2018-07-06] MEDS: INSULIN ASPART (NovoLOG) 100 UNIT/ML VIAL SQ SCH ×4 (08:09→21:22)
[2018-07-06] MEDS: ACETAMINOPHEN TAB 325 MG TAB PO PRN (08:14)
[2018-07-06] MEDS: PANTOPRAZOLE 40 MG TABLET PO SCH (08:14)
[2018-07-06] MEDS: ALPRAZolam 0.25 MG TAB PO PRN ×2 (08:14→16:16)
[2018-07-06] MEDS: METOPROLOL TARTRATE 25 MG TAB PO SCH (08:14)
[2018-07-06] MEDS: buPROPion SR 150 MG TABLET.ER PO SCH ×2 (08:19→21:27)
[2018-07-06 09:45] LABS: Basophils % (A) 0 %; Eosinophils % (A) 0 %; HGB 13.4 gm/dL (11.4-16.0); Lymphocytes # (A) 0.5 k/uL (1.0-4.8); Lymphocytes % (A) 4 %; MCH 29.6 pg (25.0-35.0); MCV 92.5 fL (80.0-100.0); Mean Platelet Volume 7.1; Monocytes # (A) 0.3 k/uL (0-1.0); Monocytes % (A) 2 %; Neutrophils # (A) 13.2 k/uL (1.3-7.7); Neutrophils % (A) 94 %; Platelet Count 210 k/uL (150-450); RBC 4.53 m/uL (3.80-5.40); RDW 14.2 % (11.5-15.5); WBC 14.1 k/uL (3.8-10.6)
[2018-07-06 09:55] LABS: Anion Gap 11 mmol/L; Blood Urea Nitrogen 27 mg/dL (7-17); Calcium 9.8 mg/dL (8.4-10.2); Carbon Dioxide 27 mmol/L (22-30); Chloride 97 mmol/L (98-107); Glucose 239 mg/dL (74-99); Potassium 4.4 mmol/L (3.5-5.1); Sodium 135 mmol/L (137-145)
[2018-07-06 11:43] LABS: Glucose,Whole Blood 90 mg/dL (75-99)
--- NOTE | 2018-07-06 14:51 | PN ---
PROGRESS NOTE DATE OF SERVICE: 07/06/2018 I am covering for Dr. Piña. This 63-year-old woman was admitted with COPD exacerbation, slightly feeling better. Pulmonary is following the patient. Patient is on IV steroids and bronchodilators. EXAM: Alert and oriented times three. Pulse 86, blood pressure 124/75, respirations 16, temperature 98.4, pulse ox 97% on 2 L. HEENT: Conjunctive normal. NECK: No jugular venous distention. CARDIOVASCULAR: S1, S2 muffled. RESPIRATIONS: Breath sounds diminished in the bases. Bilateral scattered rhonchi and crackles. Expiratory wheezing. ABDOMEN: Soft, nontender. CENTRAL NERVOUS SYSTEM: No focal deficits. LAB STUDIES: WBC 14.2, hemoglobin 13.2. Sodium 135. ASSESSMENT: 1. Chronic obstructive pulmonary disease acute exacerbation with acute purulent tracheobronchitis. 2. Degenerative joint disease. 3. History of pneumonia. 4. History of chronic hypoxic respiratory failure. 5. Appendectomy. 6. History of anxiety. RECOMMENDATIONS AND DISCUSSION: Recommend to continue current medications, continue with monitoring, symptomatic treatment. Otherwise, at at this time, continue with bronchodilators. Continue with IV steroids. Taper the steroids to 40 mg and continue to monitor. Further recommendations to follow. MMODL / IJN: [id number] /
[2018-07-06 17:13] LABS: Glucose,Whole Blood 110 mg/dL (75-99)
[2018-07-06] MEDS: methylPREDNISolone SOD SUCCI 40 MG/ML 1 ML VIAL IV SCH ×2 (18:11→23:42)
[2018-07-06 21:02] LABS: Glucose,Whole Blood 138 mg/dL (75-99)
--- NOTE | 2018-07-06 22:39 | PN ---
PROGRESS NOTE DATE OF SERVICE: 07/06/2018 She has been hemodynamically stable. She continues to have shortness of breath. Her sputum has been sent for culture. On physical examination respiratory rate is 16, pulse rate is 74, temperature 97.8, blood pressure 130/77, O2 saturation on 2 L by nasal cannula is 98%. HEENT reveals pupils that are equal. Chest reveals decreased breath sounds with prolonged expiration. Cardiovascular system reveals an S1, S2. No S3, no S4. No murmurs. Abdomen is soft. There is no pedal edema improved. White count is 14.1, hemoglobin 13.4. Microbiological cultures are growing Moraxella catarrhalis. IMPRESSION: At this time is asthma with chronic obstructive pulmonary disease with acute exacerbation. Would consult ID to further direct antibiotic coverage. Continue bronchodilators, GI and DVT prophylaxis and IV steroids. MMCINDYL / BHAVESHN: [id number] /
[2018-07-07] MEDS: ACETAMINOPHEN TAB 325 MG TAB PO PRN ×3 (00:33→18:45)
[2018-07-07] MEDS: ALPRAZolam 0.25 MG TAB PO PRN ×3 (02:23→17:10)
[2018-07-07] MEDS: methylPREDNISolone SOD SUCCI 40 MG/ML 1 ML VIAL IV SCH ×3 (06:33→18:44)
[2018-07-07] MEDS: PANTOPRAZOLE 40 MG TABLET PO SCH (06:34)
[2018-07-07 06:43] LABS: Basophils % (A) 0 %; Eosinophils % (A) 0 %; HCT 41.7 % (34.0-46.0); HGB 13.9 gm/dL (11.4-16.0); Lymphocytes # (A) 0.9 k/uL (1.0-4.8); Lymphocytes % (A) 7 %; MCH 30.4 pg (25.0-35.0); MCHC 33.3 g/dL (31.0-37.0); MCV 91.2 fL (80.0-100.0); Mean Platelet Volume 6.9; Monocytes # (A) 0.5 k/uL (0-1.0); Monocytes % (A) 4 %; Neutrophils # (A) 10.9 k/uL (1.3-7.7); Neutrophils % (A) 89 %; Platelet Count 216 k/uL (150-450); RBC 4.57 m/uL (3.80-5.40); RDW 14.2 % (11.5-15.5); WBC 12.4 k/uL (3.8-10.6)
[2018-07-07 06:46] LABS: Glucose,Whole Blood 115 mg/dL (75-99)
[2018-07-07] MEDS: INSULIN ASPART (NovoLOG) 100 UNIT/ML VIAL SQ SCH ×4 (06:46→21:17)
[2018-07-07 06:52] LABS: Calcium 9.8 mg/dL (8.4-10.2); Potassium 4.4 mmol/L (3.5-5.1)
--- NOTE | 2018-07-07 08:03 | P.PN ---
Subjective Principal diagnosis: The patient is here for exacerbation of COPD. Sputum culture positivity shows for Moraxella catarrhalis. She still continues to have cough and dyspnea on exertion. Appreciate multiple consultants. No voiding difficulties. Objective - Vital Signs Vital signs: Vital Signs Temp 98.1 F 07/06/18 23:38 Pulse 89 07/06/18 23:38 Resp 18 07/06/18 23:38 BP 129/72 07/06/18 23:38 Pulse Ox 100 07/06/18 23:38 Intake & Output 07/06/18 07/07/18 07/07/18 18:59 06:59 18:59 Intake Total 700 Balance 700 Intake: Oral 700 Other: Voiding Method Toilet Bedside Commode # Voids 2 1 - Constitutional General appearance: Present: thin - EENT Eyes: Absent: abnormal pupil - Neck Neck: Absent: lymphadenopathy - Respiratory Respiratory: bilateral: prolonged expiration - Cardiovascular Rhythm: regular Heart sounds: normal: S1, S2 Abnormal Heart Sounds: Absent: S3 Gallop - Gastrointestinal General gastrointestinal: Present: soft. Absent: tenderness - Integumentary Integumentary: Absent: rash - Musculoskeletal Musculoskeletal: Present: generalized weakness - Psychiatric Psychiatric: Present: A&O x's 3, appropriate affect, intact judgment & insight - Labs CBC & Chem 7: 07/07/18 06:25 07/07/18 06:25 Labs: Abnormal Lab Results - Last 24 Hours (Table) 07/06/18 07/06/18 07/06/18 Range/Units 09:18 09:18 17:11 WBC 14.1 H (3.8-10.6) k/uL Neutrophils # 13.2 H (1.3-7.7) k/uL Lymphocytes # 0.5 L (1.0-4.8) k/uL Sodium 135 L (137-145) mmol/L Chloride 97 L (98-107) mmol/L Carbon Dioxide (22-30) mmol/L BUN 27 H (7-17) mg/dL Glucose 239 H (74-99) mg/dL POC Glucose (mg/dL) 110 H (75-99) mg/dL 07/06/18 07/07/18 07/07/18 Range/Units 21:00 06:25 06:25 WBC 12.4 H (3.8-10.6) k/uL Neutrophils # 10.9 H (1.3-7.7) k/uL Lymphocytes # 0.9 L (1.0-4.8) k/uL Sodium (137-145) mmol/L Chloride (98-107) mmol/L Carbon Dioxide 34 H (22-30) mmol/L BUN 30 H (7-17) mg/dL Glucose 126 H (74-99) mg/dL POC Glucose (mg/dL) 138 H (75-99) mg/dL 07/07/18 Range/Units 06:41 WBC (3.8-10.6) k/uL Neutrophils # (1.3-7.7) k/uL Lymphocytes # (1.0-4.8) k/uL Sodium (137-145) mmol/L Chloride (98-107) mmol/L Carbon Dioxide (22-30) mmol/L BUN (7-17) mg/dL Glucose (74-99) mg/dL POC Glucose (mg/dL) 115 H (75-99) mg/dL Microbiology - Last 24 Hours (Table) 07/05/18 18:20 Gram Stain - Preliminary Sputum Sputum Culture - Final Moraxella(branhamella) catarra Assessment and Plan (1) Acute exacerbation of chronic obstructive airways disease Current Visit: No Status: Acute Code(s): J44.1 - CHRONIC OBSTRUCTIVE PULMONARY DISEASE W (ACUTE) EXACERBATION SNOMED Code(s): 898491732 (2) Debility Current Visit: No Status: Acute Code(s): R53.81 - OTHER MALAISE SNOMED Code(s): 43388912 Plan: Continue wean off of steroids. Approach antibiotic with culture and sensitivity resulting. Check CBC and CMP in a.m.
[2018-07-07] MEDS: BENZONATATE 100 MG CAP PO SCH ×4 (08:54→21:18)
[2018-07-07] MEDS: HEPARIN SODIUM,PORCINE 5,000 UNIT/ML 1 ML VIAL SQ SCH ×3 (08:55→21:17)
[2018-07-07] MEDS: METOPROLOL TARTRATE 25 MG TAB PO SCH (08:55)
[2018-07-07] MEDS: buPROPion SR 150 MG TABLET.ER PO SCH ×2 (08:55→21:16)
[2018-07-07] MEDS: BUDESONIDE 0.5 MG/2 ML NEBU INHALATION SCH ×2 (08:58→20:40)
[2018-07-07] MEDS: IPRATROPIUM-ALBUTEROL 3 ML NEB INHALATION SCH ×4 (08:59→20:40)
[2018-07-07 12:15] LABS: Glucose,Whole Blood 73 mg/dL (75-99)
--- NOTE | 2018-07-07 12:49 | CDI ---
Documentation Clarification Form Date: 07/07/2018 From: Ana Maria Saldana RN, CCDS Admit Date: 07/04/2018 2:31:00 PM Patient Name: Rohit Anaya Visit Number: [id number] Discharge Date: ATTENTION: The Clinical Documentation Specialists (CDI) and [facility] Coding Staff appreciate your assistance in clarifying documentation. Please respond to the clarification below the line at the bottom and electronically sign. The CDI & [facility] Coding staff will review the response and follow-up if needed. Please note: Queries are made part of the Legal Health Record. If you have any questions, please contact the author of this message via ITS. Dr. Amari Garcia Asthma is documented in your ongoing progress notes starting on 07/04/18 and further clarification is needed. History/risk factors: COPD, Home O2 2/L NC, Asthma, Former smoker Clinical Indicators: 63-year old female with complaints of 3 days of progressively worsening shortness of breath. Respiratory exam; decreased breath sounds, pursed lip breathing, abdominal accessory muscles use, tachypnea. CXR: no acute cardiopulmonary process. Vital Signs: 128/59 71 26 99 % 2/L NC Treatment: Solu-Medrol IV Bronchodilator per orders Monitor O2 Sat's In your professional opinion, can you please further specify Asthma and its severity if known? With Acute Exacerbation of Asthma Status asthmaticus Acute lower respiratory infection COPD (specify with or without exacerbation) Chronic obstructive bronchitis Other, please specify ___ Unable to determine Severity Mild intermittent Mild persistent Moderate persistent Severe persistent Other, please specify ____ Unable to determine Form or Type Cough variant Childhood Exercise induced bronchospasm Extrinsic allergic Idiosyncratic Intrinsic nonallergic Late-onset Mixed Other, please specify____ Unable to determine (Last Revision: June 2017) MTDD
--- NOTE | 2018-07-07 15:46 | P.PN ---
Subjective Progress Note Date: 07/07/18 Principal diagnosis: Chronic respiratory failure, Moraxella catarrhalis tracheobronchitis, severe COPD, tracheobronchitis, 07/07/2018, patient seen and evaluated examined during the rounds, respiratory status is remains stable, the chest x-ray from today reviewed there is no def inite infiltrate are present Objective - Vital Signs Vital signs: Vital Signs Temp 98.3 F 07/07/18 13:04 Pulse 66 07/07/18 13:04 Resp 16 07/07/18 13:04 BP 117/70 07/07/18 13:04 Pulse Ox 98 07/07/18 13:04 Intake & Output 07/06/18 07/07/18 07/07/18 18:59 06:59 18:59 Intake Total 700 400 Balance 700 400 Intake: Oral 700 400 Other: Voiding Method Toilet Toilet Bedside Commode # Voids 2 1 2 - Constitutional General appearance: Present: disheveled, mild distress, no acute distress - EENT Eyes: Present: EOMI, PERRLA, poor dentition ENT: Present: hard of hearing, normal oropharynx Ears: bilateral: normal - Neck Carotids: bilateral: upstroke normal, bruit absent Thyroid: bilateral: normal size - Respiratory Respiratory: bilateral: diminished, prolonged expiration - Cardiovascular Rhythm: regular Heart sounds: normal: S1, S2 - Gastrointestinal General gastrointestinal: Present: decreased bowel sounds, soft - Neurologic Neurologic: Present: CNII-XII intact - Musculoskeletal Musculoskeletal: Present: gait normal, generalized weakness, strength equal bilaterally - Psychiatric Psychiatric: Present: A&O x's 3, appropriate affect, intact judgment & insight - Labs CBC & Chem 7: 07/07/18 06:25 07/07/18 06:25 Labs: Abnormal Lab Results - Last 24 Hours (Table) 07/06/18 07/06/18 07/07/18 Range/Units 17:11 21:00 06:25 WBC 12.4 H (3.8-10.6) k/uL Neutrophils # 10.9 H (1.3-7.7) k/uL Lymphocytes # 0.9 L (1.0-4.8) k/uL Carbon Dioxide (22-30) mmol/L BUN (7-17) mg/dL Glucose (74-99) mg/dL POC Glucose (mg/dL) 110 H 138 H (75-99) mg/dL 07/07/18 07/07/18 07/07/18 Range/Units 06:25 06:41 12:12 WBC (3.8-10.6) k/uL Neutrophils # (1.3-7.7) k/uL Lymphocytes # (1.0-4.8) k/uL Carbon Dioxide 34 H (22-30) mmol/L BUN 30 H (7-17) mg/dL Glucose 126 H (74-99) mg/dL POC Glucose (mg/dL) 115 H 73 L (75-99) mg/dL Microbiology - Last 24 Hours (Table) 07/05/18 18:20 Gram Stain - Final Sputum Sputum Culture - Final Moraxella(branhamella) catarra Assessment and Plan Assessment: Chronic respiratory failure Moraxella catarrhalis tracheobronchitis 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
--- NOTE | 2018-07-07 16:12 | XR ---
EXAMINATION TYPE: XR chest 2V DATE OF EXAM: 07/07/2018 COMPARISON: 07/04/2018 HISTORY: 63-year-old female with pneumonia TECHNIQUE: Frontal and lateral views FINDINGS: Heart normal size. Mild atherosclerotic arch calcifications. Bony vasculature within normal limits. S ome bullous change in the right upper lobe. Relative lucencies on both sides with hyperinflation. Min imal blunting of the posterior costophrenic angles likely pleural scarring, unchanged from prior. Oth erwise, no consolidation or sizable effusion. 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 No definite acute process.
[2018-07-07 17:40] LABS: Glucose,Whole Blood 126 mg/dL (75-99)
--- NOTE | 2018-07-07 18:25 | CONS ---
CONSULTATION DATE OF SERVICE: 07/07/2018. REASON FOR CONSULTATION: Positive sputum culture with Moraxella. HISTORY OF PRESENT ILLNESS: The patient is a 63-year-old female with past medical history significant for COPD, presenting to the ER at [facility] on 07/04/2018 with chief complaints of increasing shortness of breath and coughing, sputum production that has been going on for about 3 days before she presented to hospital. The patient had shortness of breath mostly on exertion. Initially not even at rest. The patient's cough has been mild to moderate in intensity and bringing up some yellow sputum. No hemoptysis. No significant chest pain. The patient denies having any URI symptoms. Denies any high-grade fever. No nausea, no vomiting. No abdominal pain or any diarrhea. With these symptoms, the patient was evaluated by the ER physician. On arrival to the ER, the patient was afebrile. The patient's white count mildly elevated at 13.5. Chest x-ray done on admission reported to be no evidence for acute pulmonary disease. The patient has been treated for COPD exacerbation with tracheobronchitis. The patient did have a sputum with steroids and bronchodilator therapy. The patient did have sputum cultures obtained which was finalized as Moraxella catarrhalis. Rocephin was added. Infectious Disease was consulted for further recommendations regarding antibiotic therapy. REVIEW OF SYSTEMS: Positive points have been mentioned in HPI. Rest of systems are negative. PAST MEDICAL HISTORY: COPD, osteoarthritis, pneumonia. PAST SURGICAL HISTORY: Appendectomy, laser surgery to the eye, left breast biopsy, previous colonoscopy. SOCIAL HISTORY: Remote history of smoking. No drinking or drug use. FAMILY HISTORY: Mother with history of breast and bladder cancer. Father history of brain tumor and CO. ALLERGIES: TO LEVOFLOXACIN, PENICILLIN AND SINGULAR. MEDICATIONS: The patient is currently on Tylenol, DuoNeb Xanax, Tessalon Perles, Pulmicort, Wellbutrin SR, ceftriaxone, Novolog, Solu-Medrol, Lopressor, Protonix, Requip, Ultram. PHYSICAL EXAMINATION: Blood pressure is 117/70 with a pulse of 56, temperature 98.3. She is 98% on 2 L nasal cannula. General description is a middle aged female up in the bed in no distress. No tachypnea or accessory muscles of respiration use. HEENT: Shows no pallor or scleral icterus. Oral mucosa membranes are dry. No pharyngeal erythema or thrush. NECK: Trachea central. No thyromegaly. Lungs unlabored breathing, decreased intensity of breath sounds. No wheeze or crackles. Heart S1, S2. Regular rate and rhythm. ABDOMEN: Soft, no tenderness. No guarding or rigidity. Extremities are no edema of the feet. Skin examination: No rash or mass palpable. NEUROLOGICAL: Patient is awake, alert, oriented times three. Mood and affect normal. LABS: Hemoglobin 13.8, white count 12.4, BUN of 30, creatinine 0.81. Sputum with Moraxella catarrhalis. Blood cultures not done. Admission x-ray negative for any acute pneumonia. DIAGNOSTIC IMPRESSION AND PLAN: 1. Patient presented to the hospital with increasing shortness of breath. Also have a cough productive of purulent sputum, more likely representing COPD exacerbation than tracheobronchitis. Clinical suspicion low for underlying pneumonia but not entirely excluded. 2. The patient do have PENICILLIN and LEVAQUIN ALLERGY that will limit the number of antibiotics that could be safely used. PLAN: 1. We will repeat a chest x-ray PA and lateral. 2. Continue the patient on Rocephin 1 g IV piggyback daily. 3. We will continue with per admitting team. 4. We will follow up on clinical condition and culture to further adjust medication if needed. Thank you for this consultation. Will follow this patient along with you. MMODL / IJN: [id number] /
[2018-07-07 20:45] LABS: Glucose,Whole Blood 117 mg/dL (75-99)
[2018-07-08] MEDS: methylPREDNISolone SOD SUCCI 40 MG/ML 1 ML VIAL IV SCH ×4 (00:38→18:03)
[2018-07-08] MEDS: ACETAMINOPHEN TAB 325 MG TAB PO PRN ×3 (02:42→16:23)
[2018-07-08] MEDS: ALPRAZolam 0.25 MG TAB PO PRN ×3 (02:43→16:27)
[2018-07-08] MEDS: IPRATROPIUM-ALBUTEROL 3 ML NEB INHALATION PRN (02:56)
[2018-07-08] MEDS: PANTOPRAZOLE 40 MG TABLET PO SCH (06:52)
[2018-07-08 07:04] LABS: Glucose,Whole Blood 113 mg/dL (75-99)
[2018-07-08] MEDS: INSULIN ASPART (NovoLOG) 100 UNIT/ML VIAL SQ SCH ×4 (07:27→20:36)
--- NOTE | 2018-07-08 07:28 | P.PN ---
Subjective Principal diagnosis: The patient is here for exacerbation of COPD. Sputum culture positivity shows for Moraxella catarrhalis. She still continues to have cough and dyspnea on exertion. Appreciate multiple consultants. No voiding difficulties. Objective - Vital Signs Vital signs: Vital Signs Temp 97.8 F 07/08/18 00:20 Pulse 72 07/08/18 03:06 Resp 18 07/08/18 00:20 BP 121/78 07/08/18 00:20 Pulse Ox 98 07/08/18 00:20 Intake & Output 07/07/18 07/08/18 07/08/18 18:59 06:59 18:59 Intake Total 400 300 Balance 400 300 Intake: Oral 400 300 Other: Voiding Method Toilet # Voids 2 1 - Constitutional General appearance: Present: thin - EENT Eyes: Absent: abnormal pupil - Neck Neck: Absent: lymphadenopathy - Respiratory Respiratory: bilateral: diminished - Cardiovascular Rhythm: regular Heart sounds: normal: S1, S2 Abnormal Heart Sounds: Absent: S3 Gallop - Gastrointestinal General gastrointestinal: Absent: tenderness - Neurologic Neurologic: Present: CNII-XII intact - Musculoskeletal Musculoskeletal: Present: generalized weakness - Psychiatric Psychiatric: Present: A&O x's 3 - Labs CBC & Chem 7: 07/07/18 06:25 07/07/18 06:25 Labs: Abnormal Lab Results - Last 24 Hours (Table) 07/07/18 07/07/18 07/07/18 Range/Units 12:12 17:36 20:44 POC Glucose (mg/dL) 73 L 126 H 117 H (75-99) mg/dL 07/08/18 Range/Units 06:58 POC Glucose (mg/dL) 113 H (75-99) mg/dL Microbiology - Last 24 Hours (Table) 07/05/18 18:20 Gram Stain - Final Sputum Sputum Culture - Final Moraxella(branhamella) catarra Assessment and Plan (1) Acute exacerbation of chronic obstructive airways disease Current Visit: No Status: Acute Code(s): J44.1 - CHRONIC OBSTRUCTIVE PU LMONARY DISEASE W (ACUTE) EXACERBATION SNOMED Code(s): 422616397 (2) Debility Current Visit: No Status: Acute Code(s): R53.81 - OTHER MALAISE SNOMED Code(s): 66226628 Plan: Continue current rx. Slowly wean off of Solumedrol. Increase activity. Anticipate discharge in the next 24-48 hours Time with Patient: Less than 30
[2018-07-08 08:47] LABS: Basophils % (A) 0 %; Eosinophils % (A) 0 %; HCT 44.2 % (34.0-46.0); HGB 13.9 gm/dL (11.4-16.0); Lymphocytes # (A) 0.8 k/uL (1.0-4.8); Lymphocytes % (A) 7 %; MCHC 31.4 g/dL (31.0-37.0); MCV 92.4 fL (80.0-100.0); Mean Platelet Volume 6.9; Monocytes # (A) 0.4 k/uL (0-1.0); Monocytes % (A) 3 %; Neutrophils # (A) 10.6 k/uL (1.3-7.7); Neutrophils % (A) 89 %; Platelet Count 230 k/uL (150-450); RBC 4.79 m/uL (3.80-5.40); RDW 14.1 % (11.5-15.5); WBC 11.9 k/uL (3.8-10.6)
[2018-07-08] MEDS: BENZONATATE 100 MG CAP PO SCH ×3 (08:50→20:38)
[2018-07-08] MEDS: HEPARIN SODIUM,PORCINE 5,000 UNIT/ML 1 ML VIAL SQ SCH ×2 (08:50→20:38)
[2018-07-08] MEDS: METOPROLOL TARTRATE 25 MG TAB PO SCH (08:53)
[2018-07-08] MEDS: buPROPion SR 150 MG TABLET.ER PO SCH ×2 (08:53→20:37)
[2018-07-08] MEDS: IPRATROPIUM-ALBUTEROL 3 ML NEB INHALATION SCH ×4 (08:58→20:44)
[2018-07-08] MEDS: BUDESONIDE 0.5 MG/2 ML NEBU INHALATION SCH ×2 (08:58→20:44)
[2018-07-08 09:10] LABS: ALT 28 U/L (9-52); AST 17 U/L (14-36); Albumin 4.3 g/dL (3.5-5.0); Alkaline Phosphatase 47 U/L (38-126); Anion Gap 10 mmol/L; Blood Urea Nitrogen 33 mg/dL (7-17); Calcium 9.7 mg/dL (8.4-10.2); Carbon Dioxide 28 mmol/L (22-30); Chloride 98 mmol/L (98-107); Glucose 208 mg/dL (74-99); Potassium 4.5 mmol/L (3.5-5.1); Sodium 136 mmol/L (137-145); Total Bilirubin 0.3 mg/dL (0.2-1.3); Total Protein 6.4 g/dL (6.3-8.2)
[2018-07-08 12:07] LABS: Glucose,Whole Blood 109 mg/dL (75-99)
--- NOTE | 2018-07-08 12:25 | P.PN ---
Subjective Progress Note Date: 07/08/18 Principal diagnosis: Chronic respiratory failure, Moraxella catarrhalis tracheobronchitis, severe COPD, tracheobronchitis, 07/08/2018, patient seen and evaluated examined during the rounds respiratory status remains stable continue to use BiPAP throughout the night and when neces joce during the day for respiratory difficulty sputum production is minimal is still have cough on antibiotics for Moraxella catarrhalis 07/07/2018, patient seen and evaluated examined during the rounds, respiratory status is remains stable, the chest x-ray from today reviewed there is no definite infiltrate are present Objective - Vital Signs Vital signs: Vital Signs Temp 97.8 F 07/08/18 08:17 Pulse 100 07/08/18 09:14 Resp 20 07/08/18 09:00 BP 152/79 07/08/18 08:17 Pulse Ox 94 L 07/08/18 08:17 Intake & Output 07/07/18 07/08/18 07/08/18 18:59 06:59 18:59 Intake Total 400 300 Balance 400 300 Intake: Oral 400 300 Other: Voiding Method Toilet # Voids 2 1 - Exam - Constitutional General appearance: Present: disheveled, mild distress, no acute distress - EENT Eyes: Present: EOMI, PERRLA, poor dentition ENT: Present: hard of hearing, normal oropharynx Ears: bilateral: normal - Neck Carotids: bilateral: upstroke normal, bruit absent Thyroid: bilateral: normal size - Respiratory Respiratory: bilateral: diminished, prolonged expiration - Cardiovascular Rhythm: regular Heart sounds: normal: S1, S2 - Gastrointestinal General gastrointestinal: Present: decreased bowel sounds, soft - Neurologic Neurologic: Present: CNII-XII intact - Musculoskeletal Musculoskeletal: Present: gait normal, generalized weakness, strength equal bilaterally - Psychiatric Psychiatric: Present: A&O x's 3, appropriate affect, intact judgment & insight - Labs CBC & Chem 7: 07/08/18 08:26 07/08/18 08:26 Labs: Abnormal Lab Results - Last 24 Hours (Table) 07/07/18 07/07/18 07/08/18 Range/Units 17:36 20:44 06:58 WBC (3.8-10.6) k/uL Neutrophils # (1.3-7.7) k/uL Lymphocytes # (1.0-4.8) k/uL Sodium (137-145) mmol/L BUN (7-17) mg/dL Glucose (74-99) mg/dL POC Glucose (mg/dL) 126 H 117 H 113 H (75-99) mg/dL 07/08/18 07/08/18 07/08/18 Range/Units 08:26 08:26 12:04 WBC 11.9 H (3.8-10.6) k/uL Neutrophils # 10.6 H (1.3-7.7) k/uL Lymphocytes # 0.8 L (1.0-4.8) k/uL Sodium 136 L (137-145) mmol/L BUN 33 H (7-17) mg/dL Glucose 208 H (74-99) mg/dL POC Glucose (mg/dL) 109 H (75-99) mg/dL Microbiology - Last 24 Hours (Table) 07/05/18 18:20 Gram Stain - Final Sputum Sputum Culture - Final Moraxella(branhamella) catarra Assessment and Plan Assessment: Acute on Chronic respiratory failure Moraxella catarrhalis tracheobronchitis 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
--- NOTE | 2018-07-08 16:36 | PN ---
PROGRESS NOTE DATE OF SERVICE: 07/08/2018. REASON FOR FOLLOW UP: Moraxella catarrhalis positive. INTERVAL HISTORY: The patient is currently afebrile. The patient still complaining of shortness of breath. Though her cough has decreased in intensity. Remains to be dry in nature. No wheezing. No nausea, no vomiting. No abdominal pain. No diarrhea. PHYSICAL EXAMINATION: Blood pressure is 114/54 with a pulse of 62. Temperature of 98.2. She is 97% on 2 L nasal cannula. General description is a middle-aged female up in the bed in no distress. Respiratory system: Unlabored breathing with decreased intensity of breath sounds. No wheeze or crackles. Heart S1, S2. Regular rate and rhythm. Abdomen soft, no tenderness. LABS: Hemoglobin 13.8, white count 11.9 with a BUN of 33, creatinine 0.79. DIAGNOSTIC IMPRESSION AND PLAN: Patient with a positive sputum culture with MRSA electrolytes. The patient likely with COPD exacerbation, tracheobronchitis. No evidence of any pneumonia. Currently on Rocephin, bronchodilators to continue. Continue supportive care. MMODL / IJN: [id number] /
[2018-07-08 17:35] LABS: Glucose,Whole Blood 138 mg/dL (75-99)
[2018-07-08 20:21] LABS: Glucose,Whole Blood 178 mg/dL (75-99)
[2018-07-08] MEDS ORDERED: SIMETHICONE 80 MG CHEWABLE PO PRN (22:09)
[2018-07-09] MEDS: ALPRAZolam 0.25 MG TAB PO PRN ×4 (00:25→20:13)
[2018-07-09] MEDS: ACETAMINOPHEN TAB 325 MG TAB PO PRN ×4 (00:25→20:13)
[2018-07-09] MEDS: methylPREDNISolone SOD SUCCI 40 MG/ML 1 ML VIAL IV SCH ×4 (00:25→17:48)
[2018-07-09] MEDS: PANTOPRAZOLE 40 MG TABLET PO SCH (06:32)
[2018-07-09 06:47] LABS: Basophils % (A) 0 %; Eosinophils % (A) 0 %; HCT 46.4 % (34.0-46.0); HGB 14.7 gm/dL (11.4-16.0); Lymphocytes # (A) 1.5 k/uL (1.0-4.8); Lymphocytes % (A) 11 %; MCH 29.4 pg (25.0-35.0); MCHC 31.8 g/dL (31.0-37.0); MCV 92.5 fL (80.0-100.0); Monocytes # (A) 0.6 k/uL (0-1.0); Monocytes % (A) 4 %; Neutrophils # (A) 11.3 k/uL (1.3-7.7); Neutrophils % (A) 83 %; Platelet Count 234 k/uL (150-450); RBC 5.01 m/uL (3.80-5.40); WBC 13.6 k/uL (3.8-10.6)
[2018-07-09 06:47] LABS: Glucose,Whole Blood 107 mg/dL (75-99)
[2018-07-09] MEDS: INSULIN ASPART (NovoLOG) 100 UNIT/ML VIAL SQ SCH ×4 (06:47→20:21)
[2018-07-09 07:00] LABS: Calcium 9.9 mg/dL (8.4-10.2); Potassium 4.9 mmol/L (3.5-5.1)
[2018-07-09] MEDS: IPRATROPIUM-ALBUTEROL 3 ML NEB INHALATION SCH ×4 (08:55→18:50)
[2018-07-09] MEDS: BUDESONIDE 0.5 MG/2 ML NEBU INHALATION SCH ×2 (08:55→18:50)
[2018-07-09] MEDS: METOPROLOL TARTRATE 25 MG TAB PO SCH (09:19)
[2018-07-09] MEDS: buPROPion SR 150 MG TABLET.ER PO SCH ×2 (09:19→20:13)
[2018-07-09] MEDS: BENZONATATE 100 MG CAP PO SCH ×3 (10:43→20:15)
[2018-07-09] MEDS: HEPARIN SODIUM,PORCINE 5,000 UNIT/ML 1 ML VIAL SQ SCH ×2 (10:43→20:15)
[2018-07-09 12:07] LABS: Glucose,Whole Blood 214 mg/dL (75-99)
[2018-07-09 16:44] LABS: Glucose,Whole Blood 75 mg/dL (75-99)
--- NOTE | 2018-07-09 18:12 | P.PN ---
Subjective Principal diagnosis: The patient is here for exacerbation of COPD. Patient states poor night of sleep. In fact, she seems to be breathing through more pursed lips today. No new voiding difficulties. She is oxygen dependent COPD. Objective - Vital Signs Vital signs: Vital Signs Temp 98.1 F 07/09/18 17:15 Pulse 81 07/09/18 17:15 Resp 18 07/09/18 17:15 BP 122/71 07/09/18 17:15 Pulse Ox 96 07/09/18 17:15 Intake & Output 07/08/18 07/09/18 07/09/18 18:59 06:59 18:59 Other: Voiding Method Toilet # Voids 1 1 # Bowel Movements 1 - Constitutional General appearance: Present: thin - EENT Eyes: Absent: abnormal pupil - Respiratory Respiratory: bilateral: diminished - Cardiovascular Rhythm: regular Heart sounds: normal: S1, S2 Abnormal Heart Sounds: Absent: S3 Gallop - Gastrointestinal General gastrointestinal: Present: soft. Absent: tenderness - Integumentary Integumentary: Present: normal - Musculoskeletal Musculoskeletal: Present: generalized weakness - Psychiatric Psychiatric: Present: A&O x's 3, appropriate affect - Labs CBC & Chem 7: 07/09/18 06:25 07/09/18 06:25 Labs: Abnormal Lab Results - Last 24 Hours (Table) 07/08/18 07/09/18 07/09/18 Range/Units 20:18 06:25 06:25 WBC 13.6 H (3.8-10.6) k/uL Hct 46.4 H (34.0-46.0) % Neutrophils # 11.3 H (1.3-7.7) k/uL Carbon Dioxide 33 H (22-30) mmol/L BUN 35 H (7-17) mg/dL Glucose 116 H (74-99) mg/dL POC Glucose (mg/dL) 178 H (75-99) mg/dL 07/09/18 07/09/18 Range/Units 06:46 12:02 WBC (3.8-10.6) k/uL Hct (34.0-46.0) % Neutrophils # (1.3-7.7) k/uL Carbon Dioxide (22-30) mmol/L BUN (7-17) mg/dL Glucose (74-99) mg/dL POC Glucose (mg/dL) 107 H 214 H (75-99) mg/dL Assessment and Plan (1) Acute exacerbation of chronic obstructive airways disease Current Visit: No Status: Acute Code(s): J44.1 - CHRONIC OBSTRUCTIVE PULMONARY DISEASE W (ACUTE) EXACERBATION SNOMED Code(s): 408068260 (2) Debility Current Visit: No Status: Acute Code(s): R53.81 - OTHER MALAISE SNOMED Code(s): 66693831 Plan: Continue to slowly wean off of steroid treatment. The patient has a somewhat poor prognosis given her overall element of e mphysema. Increase ambulation as Possible. Anticipate discharge in next 24-48 hours. Appreciate pulmonology input. Time with Patient: Greater than 30
--- NOTE | 2018-07-09 18:22 | PN ---
PROGRESS NOTE DATE OF SERVICE: 07/09/2018. REASON FOR FOLLOW UP: Moraxella tracheobronchitis with COPD exacerbation. INTERVAL HISTORY: The patient is currently afebrile. The patient is complaining of shortness of breath. The patient's cough had decreased in intensity, less productive now. No chest pain. No nausea, vomiting. No abdominal pain. No diarrhea. PHYSICAL EXAMINATION: Blood pressure 119/72 with a pulse of 84, temperature 98.1. He is 97% on 2 L nasal cannula. General description is an middle-aged female up in the bed in no distress. Respiratory system: Unlabored breathing with decreased breath sounds at the bases. No wheeze or crackles. Heart S1, S2. Regular rate and rhythm. Abdomen soft, no tenderness. LABS: Hemoglobin is 14.7, white count 13.6, BUN of 35, creatinine 0.81. DIAGNOSTIC IMPRESSION AND PLAN: Patient with Moraxella catarrhalis, positive sputum culture in this patient admitted to the hospital with COPD exacerbation, tracheobronchitis. The patient at this time covered with Rocephin in addition to the steroids and bronchodilators per pulmonary to continue. She did have slight jump in the white count more likely, related to steroids that will be monitored closely. Continue supportive care. MMODL / IJN: [id number] /
[2018-07-09 20:11] LABS: Glucose,Whole Blood 137 mg/dL (75-99)
[2018-07-09] MEDS: IPRATROPIUM-ALBUTEROL 3 ML NEB INHALATION PRN (23:55)
[2018-07-10] MEDS: methylPREDNISolone SOD SUCCI 40 MG/ML 1 ML VIAL IV SCH ×4 (00:10→23:19)
[2018-07-10] MEDS: ACETAMINOPHEN TAB 325 MG TAB PO PRN ×3 (02:13→14:32)
[2018-07-10] MEDS: ALPRAZolam 0.25 MG TAB PO PRN ×3 (02:13→14:32)
[2018-07-10] MEDS: PANTOPRAZOLE 40 MG TABLET PO SCH (06:37)
[2018-07-10 06:44] LABS: Glucose,Whole Blood 129 mg/dL (75-99)
[2018-07-10] MEDS: INSULIN ASPART (NovoLOG) 100 UNIT/ML VIAL SQ SCH ×4 (06:53→21:21)
[2018-07-10] MEDS: METOPROLOL TARTRATE 25 MG TAB PO SCH (07:56)
[2018-07-10] MEDS: buPROPion SR 150 MG TABLET.ER PO SCH ×2 (07:56→21:22)
[2018-07-10] MEDS: HEPARIN SODIUM,PORCINE 5,000 UNIT/ML 1 ML VIAL SQ SCH ×2 (07:57→23:17)
[2018-07-10] MEDS: BENZONATATE 100 MG CAP PO SCH ×3 (07:57→23:18)
[2018-07-10] MEDS: BUDESONIDE 0.5 MG/2 ML NEBU INHALATION SCH ×2 (08:46→20:46)
[2018-07-10] MEDS: IPRATROPIUM-ALBUTEROL 3 ML NEB INHALATION SCH ×4 (08:46→20:47)
[2018-07-10 12:10] LABS: Glucose,Whole Blood 93 mg/dL (75-99)
--- NOTE | 2018-07-10 14:48 | P.PN ---
Subjective Progress Note Date: 07/09/18 (Late entry note) Principal diagnosis: Chronic respiratory failure, Moraxella catarrhalis tracheobronchitis, severe COPD, tracheobronchitis, 07/09/2018, patient seen and evaluated examined during the rounds doing well however still have shortness of breath she has been using BiPAP machine each night has been on broad-spectrum antibiotics and respiratory treatments ID service is adjusting the antibiotic 07/08/2018, patient seen and evaluated examined during the rounds respiratory status remains stable continue to use BiPAP throughout the night and when necessary during the day for respiratory difficulty sputum production is minimal is still have cough on antibiotics for Moraxella catarrhalis 07/07/2018, patient seen and evaluated examined during the rounds, respiratory status is remains stable, the chest x-ray from today reviewed there is no definite infiltrate are present Objective - Vital Signs Vital signs: Vital Signs Temp 98.2 F 07/10/18 12:08 Pulse 88 07/10/18 13:02 Resp 16 07/10/18 12:08 BP 161/90 07/10/18 12:08 Pulse Ox 97 07/10/18 12:08 Intake & Output 07/09/18 07/10/18 07/10/18 18:59 06:59 18:59 Other: Voiding Method Toilet # Voids 1 1 2 # Bowel Movements 1 - Exam - Constitutional General appearance: Present: disheveled, mild distress, no acute distress - EENT Eyes: Present: EOMI, PERRLA, poor dentition ENT: Present: hard of hearing, normal oropharynx Ears: bilateral: normal - Neck Carotids: bilateral: upstroke normal, bruit absent Thyroid: bilateral: normal size - Respiratory Respiratory: bilateral: diminished, prolonged expiration - Cardiovascular Rhythm: regular Heart sounds: normal: S1, S2 - Gastrointestinal General gastrointestinal: Present: decreased bowel sounds, soft - Neurologic Neurologic: Present: CNII-XII intact - Musculoskeletal Musculoskeletal: Present: gait normal, generalized weakness, strength equal bilaterally - Psychiatric Psychiatric: Present: A&O x's 3, appropriate affect, intact judgment & insight - Labs CBC & Chem 7: 07/09/18 06:25 07/09/18 06:25 Labs: Abnormal Lab Results - Last 24 Hours (Table) 07/09/18 07/10/18 Range/Units 20:09 06:42 POC Glucose (mg/dL) 137 H 129 H (75-99) mg/dL Assessment and Plan Assessment: Acute on Chronic respiratory failure Moraxella catarrhalis 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
--- NOTE | 2018-07-10 14:51 | P.PN ---
Subjective Progress Note Date: 07/10/18 Principal diagnosis: Chronic respiratory failure, Moraxella catarrhalis tracheobronchitis, severe COPD, tracheobronchitis, 07/10/2018, patient seen in evaluated and examined during the rounds she is slightly more short of breath this morning recently had his steroids have been tapered however with the breathing treatment she opened up would recommend on current plan of care, patient is being considered for extended care facility however patient was to go home 07/09/2018, patient seen and evaluated examined during the rounds doing well however still have shortness of breath she has been using BiPAP machine each night has been on broad-spectrum antibiotics and respiratory treatments ID service is adjusting the antibiotic 07/08/2018, patient seen and evaluated examined during the rounds respiratory status remains stable continue to use BiPAP throughout the night and when necessary during the day for respiratory difficulty sputum production is minimal is still have cough on antibiotics for Moraxella catarrhalis 07/07/2018, patient seen and evaluated examined during the rounds, respiratory status is remains stable, the chest x-ray from today reviewed there is no d efinite infiltrate are present Objective - Vital Signs Vital signs: Vital Signs Temp 98.2 F 07/10/18 12:08 Pulse 88 07/10/18 13:02 Resp 16 07/10/18 12:08 BP 161/90 07/10/18 12:08 Pulse Ox 97 07/10/18 12:08 Intake & Output 07/09/18 07/10/18 07/10/18 18:59 06:59 18:59 Other: Voiding Method Toilet # Voids 1 1 2 # Bowel Movements 1 - Exam - Constitutional General appearance: Present: disheveled, mild distress, no acute distress - EENT Eyes: Present: EOMI, PERRLA, poor dentition ENT: Present: hard of hearing, normal oropharynx Ears: bilateral: normal - Neck Carotids: bilateral: upstroke normal, bruit absent Thyroid: bilateral: normal size - Respiratory Respiratory: bilateral: diminished, prolonged expiration - Cardiovascular Rhythm: regular Heart sounds: normal: S1, S2 - Gastrointestinal General gastrointestinal: Present: decreased bowel sounds, soft - Neurologic Neurologic: Present: CNII-XII intact - Musculoskeletal Musculoskeletal: Present: gait normal, generalized weakness, strength equal bilaterally - Psychiatric Psychiatric: Present: A&O x's 3, appropriate affect, intact judgment & insight - Labs CBC & Chem 7: 07/09/18 06:25 07/09/18 06:25 Labs: Abnormal Lab Results - Last 24 Hours (Table) 07/09/18 07/10/18 Range/Units 20:09 06:42 POC Glucose (mg/dL) 137 H 129 H (75-99) mg/dL Assessment and Plan Assessment: Acute on Chronic respiratory failure Moraxella catarrhalis tracheobronchitis 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
[2018-07-10 17:07] LABS: Glucose,Whole Blood 101 mg/dL (75-99)
--- NOTE | 2018-07-10 18:41 | PN ---
PROGRESS NOTE DATE OF SERVICE: 07/10/2018 REASON FOR FOLLOWUP: Moraxella catarrhalis tracheobronchitis. INTERVAL HISTORY: The patient is currently afebrile. The patient is complaining of shortness of breath. The patient did have minimal cough; no sputum. No chest pain. No nausea, no vomiting, no abdominal pain and no diarrhea. PHYSICAL EXAMINATION: Blood pressure 161/90 with a pulse of 86, temperature 98.2. She is 97% on 2 l nasal cannula. General description is a middle-aged female up in the bed in no distress. RESPIRATORY SYSTEM: Unlabored breathing with decreased intensity of breath sounds. No wheeze. HEART: S1, S2. Regular rate and rhythm. ABDOMEN: Soft. No tenderness. LABS: Hemoglobin is 14.7, hemoglobin 13.6. DIAGNOSTIC IMPRESSION AND PLAN: Patient with Moraxella catarrhalis tracheobronchitis. Clinically doubt pneumonia. Patient is currently covered with Rocephin. Still complaining of shortness of breath. She is on steroids and bronchodilators per Pulmonary; to continue, monitoring her clinical course closely. Slightly elevated white count, more likely steroid effect. Clinically doubt any worsening infection. MMODL / IJN: [id number] /
[2018-07-10 20:50] LABS: Glucose,Whole Blood 158 mg/dL (75-99)
--- NOTE | 2018-07-10 22:56 | P.PN ---
Subjective Principal diagnosis: The patient is here for exacerbation of COPD. Patient states poor night of sleep. In fact, she seems to be breathing through more pursed lips today. No new voiding difficulties. She is oxygen dependent COPD.I have discussed probable ECF placement given her plateau of improvement. She still is having difficulty ambulating. Objective - Vital Signs Vital signs: Vital Signs Temp 98.1 F 07/10/18 20:11 Pulse 88 07/10/18 21:02 Resp 20 07/10/18 20:11 BP 124/69 07/10/18 20:11 Pulse Ox 97 07/10/18 15:00 Intake & Output 07/10/18 07/10/18 07/11/18 06:59 18:59 06:59 Intake Total 200 Balance 200 Intake: Oral 200 Other: # Voids 1 2 - Constitutional General appearance: Present: thin - EENT Eyes: Absent: abnormal pupil - Respiratory Respiratory: bilateral: diminished - Cardiovascular Rhythm: regular Heart sounds: normal: S1, S2 Abnormal Heart Sounds: Absent: S3 Gallop - Gastrointestinal General gastrointestinal: Present: soft. Absent: tenderness - Neurologic Neurologic: Present: CNII-XII intact. Absent: focal deficits - Labs CBC & Chem 7: 07/09/18 06:25 07/09/18 06:25 Labs: Abnormal Lab Results - Last 24 Hours (Table) 07/10/18 07/10/18 07/10/18 Range/Units 06:42 17:05 20:47 POC Glucose (mg/dL) 129 H 101 H 158 H (75-99) mg/dL Assessment and Plan (1) Acute exacerbation of chronic obstructive airways disease Current Visit: No Status: Acute Code(s): J44.1 - CHRONIC OBSTRUCTIVE PULMONARY DISEASE W (ACUTE) EXACERBATION SNOMED Code(s): 519788625 (2) Debility Current Visit: No Status: Acute Code(s): R53.81 - OTHER MALAISE SNOMED Code(s): 62673153 Plan: Significant plateau in improvement. Most likely ECF placement for rehab. Continue to follow and wean off of Solu-Medrol today. Anticipate transfer in the a.m. Time with Patient: Less than 30
[2018-07-11] MEDS: traMADol 50 MG TAB PO PRN ×3 (05:08→20:26)
[2018-07-11] MEDS: PANTOPRAZOLE 40 MG TABLET PO SCH (06:04)
[2018-07-11] MEDS: ALPRAZolam 0.25 MG TAB PO PRN ×3 (06:04→20:26)
[2018-07-11 06:12] LABS: Glucose,Whole Blood 90 mg/dL (75-99)
[2018-07-11] MEDS: IPRATROPIUM-ALBUTEROL 3 ML NEB INHALATION SCH ×4 (08:09→20:42)
[2018-07-11] MEDS: BUDESONIDE 0.5 MG/2 ML NEBU INHALATION SCH ×2 (08:09→20:42)
[2018-07-11] MEDS: INSULIN ASPART (NovoLOG) 100 UNIT/ML VIAL SQ SCH ×4 (09:28→20:30)
[2018-07-11] MEDS: buPROPion SR 150 MG TABLET.ER PO SCH ×2 (10:01→20:00)
[2018-07-11] MEDS: METOPROLOL TARTRATE 25 MG TAB PO SCH (10:01)
--- NOTE | 2018-07-11 10:03 | P.PN ---
Subjective Principal diagnosis: The patient is here for exacerbation of COPD. Patient states poor night of sleep. In fact, she seems to be breathing through more pursed lips today. No new voiding difficulties. She is oxygen dependent COPD.I have discussed probable ECF placement given her plateau of improvement. She still is having difficulty ambulating. Objective - Vital Signs Vital signs: Vital Signs Temp 98.0 F 07/11/18 08:39 Pulse 121 H 07/11/18 08:39 Resp 24 07/11/18 08:39 BP 147/84 07/11/18 08:39 Pulse Ox 94 L 07/11/18 08:39 Intake & Output 07/10/18 07/11/18 07/11/18 18:59 06:59 18:59 Intake Total 200 Balance 200 Intake: Oral 200 Other: # Voids 2 - Constitutional General appearance: Absent: thin - EENT Eyes: Absent: abnormal pupil - Neck Neck: Absent: lymphadenopathy - Cardiovascular Rhythm: regular Heart sounds: normal: S1, S2 Abnormal Heart Sounds: Absent: S3 Gallop - Gastrointestinal General gastrointestinal: Present: soft. Absent: tenderness - Labs CBC & Chem 7: 07/09/18 06:25 07/09/18 06:25 Labs: Abnormal Lab Results - Last 24 Hours (Table) 07/10/18 07/10/18 Range/Units 17:05 20:47 POC Glucose (mg/dL) 101 H 158 H (75-99) mg/dL Assessment and Plan (1) Acute exacerbation of chronic obstructive airways disease Current Visit: No Status: Acute Code(s): J44.1 - CHRONIC OBSTRUCTIVE PULMONARY DISEASE W (ACUTE) EXACERBATION SNOMED Code(s): 588937312 (2) Debility Current Visit: No Status: Acute Code(s): R53.81 - OTHER MALAISE SNOMED Code(s): 74185432 Plan: The patient will continue increase in temporary steroid per Transfer to ECF hopefully on Saturday. Dr. Matthieu villar covering for the weekend. Appreciate pulmonology input. Prognosis is guarded.
[2018-07-11] MEDS: ACETAMINOPHEN TAB 325 MG TAB PO PRN ×2 (10:04→20:00)
[2018-07-11] MEDS: HEPARIN SODIUM,PORCINE 5,000 UNIT/ML 1 ML VIAL SQ SCH ×2 (10:10→20:30)
[2018-07-11] MEDS: BENZONATATE 100 MG CAP PO SCH ×2 (10:10→20:29)
[2018-07-11] MEDS: methylPREDNISolone SOD SUCCI 40 MG/ML 1 ML VIAL IV SCH (10:12)
--- NOTE | 2018-07-11 10:16 | P.PN ---
Subjective Progress Note Date: 07/11/18 Principal diagnosis: Chronic respiratory failure, Moraxella catarrhalis tracheobronchitis, severe COPD, tracheobronchitis, 07/11/2018, patient seen and evaluated and examined during the rounds the still doing not very well in terms of breathing had to go up on Solu-Medrol she has a weak pain on the left lower thoracic wall which is chronic in nature is also going through flareup tramadol is helpful 07/10/2018, patient seen in evaluated and examined during the rounds she is s lightly more short of breath this morning recently had his steroids have been tapered however with the breathing treatment she opened up would recommend on current plan of care, patient is being considered for extended care facility however patient was to go home 07/09/2018, patient seen and evaluated examined during the rounds doing well however still have shortness of breath she has been using BiPAP machine each night has been on broad-spectrum antibiotics and respiratory treatments ID service is adjusting the antibiotic 07/08/2018, patient seen and evaluated examined during the rounds respiratory status remains stable continue to use BiPAP throughout the night and when necessary during the day for respiratory difficulty sputum production is minimal is still have cough on antibiotics for Moraxella catarrhalis 07/07/2018, patient seen and evaluated examined during the rounds, respiratory status is remains stable, the chest x-ray from today reviewed there is no definite infiltrate are present Objective - Vital Signs Vital signs: Vital Signs Temp 98.0 F 07/11/18 08:39 Pulse 121 H 07/11/18 08:39 Resp 24 07/11/18 08:39 BP 147/84 07/11/18 08:39 Pulse Ox 94 L 07/11/18 08:39 Intake & Output 07/10/18 07/11/18 07/11/18 18:59 06:59 18:59 Intake Total 200 Balance 200 Intake: Oral 200 Other: # Voids 2 - Exam - Constitutional General appearance: Present: disheveled, mild distress, no acute distress - EENT Eyes: Present: EOMI, PERRLA, poor dentition ENT: Present: hard of hearing, normal oropharynx Ears: bilateral: normal - Neck Carotids: bilateral: upstroke normal, bruit absent Thyroid: bilateral: normal size - Respiratory Respiratory: bilateral: diminished, prolonged expiration - Cardiovascular Rhythm: regular Heart sounds: normal: S1, S2 - Gastrointestinal General gastrointestinal: Present: decreased bowel sounds, soft - Neurologic Neurologic: Present: CNII-XII intact - Musculoskeletal Musculoskeletal: Present: gait normal, generalized weakness, strength equal bilaterally - Psychiatric Psychiatric: Present: A&O x's 3, appropriate affect, intact judgment & insight - Labs CBC & Chem 7: 07/09/18 06:25 07/09/18 06:25 Labs: Abnormal Lab Results - Last 24 Hours (Table) 07/10/18 07/10/18 Range/Units 17:05 20:47 POC Glucose (mg/dL) 101 H 158 H (75-99) mg/dL Assessment and Plan Assessment: Acute on Chronic respiratory failure Moraxella catarrhalis tracheobronchitis Nonspecific left posterior chest wall pain 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
[2018-07-11] MEDS: methylPREDNISolone SOD SUCCI 125 MG/2 ML VIAL IV SCH ×2 (11:02→17:58)
[2018-07-11 11:48] LABS: Glucose,Whole Blood 79 mg/dL (75-99)
[2018-07-11 13:25] VITALS: BMI 23.8
--- NOTE | 2018-07-11 16:27 | PN ---
PROGRESS NOTE DATE OF SERVICE: 07/11/2018. REASON FOR FOLLOWUP VISIT: Tracheobronchitis, sputum positive for Moraxella INTERVAL HISTORY: The patient is currently afebrile. The patient is complaining of shortness of breath, cough has decreased in intensity, less productive now. No nausea, vomiting, no abdominal pain or diarrhea. PHYSICAL EXAMINATION: Blood pressure 132/64 with a pulse of 73, temperature 98.1. She is 97% on 2 L nasal cannula. General description is a middle-aged female lying in bed in no distress. Respiratory system: Unlabored breathing with decreased breath sounds in the bases. No wheeze. Heart S1, S2. Regular rate and rhythm. ABDOMEN: Soft, no tenderness. LABS: No new labs have been obtained today. DIAGNOSTIC IMPRESSION AND PLAN: Patient admitted to the hospital with chronic obstructive pulmonary disease acute exacerbation with tracheobronchitis. Sputum has been positive for Moraxella the patient on IV Rocephin to continue in addition to steroids and bronchodilators. Continue supportive care. MMODL / IJN: [id number] / [email or web address]
[2018-07-11 17:14] LABS: Glucose,Whole Blood 92 mg/dL (75-99)
[2018-07-11 20:32] LABS: Glucose,Whole Blood 109 mg/dL (75-99)
[2018-07-12] MEDS: ALPRAZolam 0.25 MG TAB PO PRN ×4 (05:22→23:54)
[2018-07-12] MEDS: traMADol 50 MG TAB PO PRN ×4 (05:22→23:57)
[2018-07-12 06:46] LABS: Glucose,Whole Blood 150 mg/dL (75-99)
[2018-07-12] MEDS: methylPREDNISolone SOD SUCCI 125 MG/2 ML VIAL IV SCH ×5 (06:48→23:54)
[2018-07-12] MEDS: INSULIN ASPART (NovoLOG) 100 UNIT/ML VIAL SQ SCH ×4 (06:48→21:12)
[2018-07-12] MEDS: PANTOPRAZOLE 40 MG TABLET PO SCH (06:49)
[2018-07-12] MEDS: IPRATROPIUM-ALBUTEROL 3 ML NEB INHALATION SCH ×4 (08:51→20:52)
[2018-07-12] MEDS: BUDESONIDE 0.5 MG/2 ML NEBU INHALATION SCH ×2 (08:51→20:50)
[2018-07-12] MEDS ORDERED: METOPROLOL TARTRATE 12.5 MG TAB PO SCH (09:00)
[2018-07-12] MEDS: BENZONATATE 100 MG CAP PO SCH ×3 (09:19→21:19)
[2018-07-12] MEDS: buPROPion SR 150 MG TABLET.ER PO SCH ×2 (09:19→21:18)
[2018-07-12] MEDS: HEPARIN SODIUM,PORCINE 5,000 UNIT/ML 1 ML VIAL SQ SCH ×2 (09:20→20:02)
[2018-07-12] MEDS: ACETAMINOPHEN TAB 325 MG TAB PO PRN ×2 (09:28→23:55)
[2018-07-12] MEDS ORDERED: METOPROLOL TARTRATE 12.5 MG TAB PO STA (09:38)
[2018-07-12 11:28] LABS: Glucose,Whole Blood 118 mg/dL (75-99)
[2018-07-12] MEDS ORDERED: CALCIUM CARBONATE 500 MG CHEWABLE PO PRN (12:34)
--- NOTE | 2018-07-12 12:47 | P.PN ---
Subjective Progress Note Date: 07/12/18 07/12/2017: Patient seen and examined covering for Dr. Huang. The patient states that she has not yet feeling any better. She is still short of breath with exertion. She does have an occasional cough. She denies fevers and chills. Objective - Vital Signs Vital signs: Vital Signs Temp 98.1 F 07/12/18 11:50 Pulse 78 07/12/18 12:29 Resp 20 07/12/18 11:50 BP 147/83 07/12/18 11:50 Pulse Ox 96 07/12/18 11:50 Intake & Output 07/11/18 07/12/18 07/12/18 18:59 06:59 18:59 Intake Total 240 Balance 240 Weight 58.967 kg Intake: Oral 240 - Exam Gen.: Patient is alert and oriented 3, no acute distress Cardiovascular: Regular rate and rhythm, S1/S2 Lungs: Diminished breath sounds bilaterally Abdomen: Soft nontender nondistended positive bowel sounds Extremities no edema - Labs CBC & Chem 7: 07/09/18 06:25 07/09/18 06:25 Labs: Abnormal Lab Results - Last 24 Hours (Table) 07/11/18 07/12/18 07/12/18 Range/Units 20:29 06:44 11:26 POC Glucose (mg/dL) 109 H 150 H 118 H (75-99) mg/dL Assessment and Plan Assessment: Acute on Chronic respiratory failure Moraxella catarrhalis tracheobronchitis Nonspecific left posterior chest wall pain 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
[2018-07-12 17:26] LABS: Glucose,Whole Blood 122 mg/dL (75-99)
[2018-07-12] MEDS: FORMOTEROL FUMARATE 20 MCG/2 ML NEBU INHALATION SCH (20:50)
[2018-07-12 21:13] LABS: Glucose,Whole Blood 103 mg/dL (75-99)
[2018-07-12] MEDS: DOXYCYCLINE 100 MG CAP PO SCH (21:18)
[2018-07-12] MEDS: METOPROLOL TARTRATE 25 MG TAB PO SCH (21:21)
--- NOTE | 2018-07-12 23:43 | P.PN ---
Subjective Progress Note Date: 07/12/18 Principal diagnosis: Acute COPD exacerbation Patient is a 63-year-old female with a known history of advanced COPD, previous history of smoking, osteoarthritis and anxiety came to ER on 07/04/2018 with worsening shortness of breath and cough and sputum production. Patient was c ontinued on antibiotics no cough ceftriaxone and doxycycline. Sputum culture showed Moraxella catarrhalis. Patient is being continued on IV steroids and antibiotics and breathing treatments. Pulmonary is following. 07/12/2018 Patient says that she still having exertional dyspnea and not have baseline yet. Patient does have occasional cough without any sputum production. No fever no chills. Currently on nausea cannula oxygen at 2 L and saturating well. Patient is being continued on IV steroids, DuoNeb's, Pulmicort, Perforomist and antibiotics in the form of doxycycline. No nausea vomiting or diarrhea or abdominal pain. No other acute overnight issues. Current medications reviewed. Objective - Vital Signs Vital signs: Vital Signs Temp 98.1 F 07/12/18 11:50 Pulse 78 07/12/18 12:29 Resp 20 07/12/18 11:50 BP 147/83 07/12/18 11:50 Pulse Ox 96 07/12/18 11:50 Intake & Output 07/11/18 07/12/18 07/12/18 18:59 06:59 18:59 Intake Total 240 Balance 240 Weight 58.967 kg Intake: Oral 240 - Exam PHYSICAL EXAMINATION: Patient is lying in the bed comfortably, no acute distress, awake alert and oriented.. HEENT: Normocephalic. Neck is supple. Pupils reactive. Nostrils clear. Oral cavity is moist. Ears reveal no drainage. Neck reveals no JVD, carotid bruits, or thyromegaly. CHEST EXAMINATION: Trachea is central. Symmetrical expansion. Bilateral diminished air entry with scattered rhonchi and minimal wheeze.. CARDIAC: Normal S1, S2 with no gallops. No murmurs ABDOMEN: Soft. Bowel sounds normal. No organomegaly. No abdominal bruits. Extremities: reveal no edema. No clubbing or cyanosis Neurologically awake, alert, oriented x3 with well-coordinated movements. No focal deficits noted Skin: No rash or skin lesions. Psychiatric: Coperative. Nonsuicidal. Anxious. Musculoskeletal: No joint swelling or deformity. Normal range of motion. - Labs CBC & Chem 7: 07/09/18 06:25 07/09/18 06:25 Labs: Abnormal Lab Results - Last 24 Hours (Table) 07/11/18 07/12/18 07/12/18 Range/Units 20:29 06:44 11:26 POC Glucose (mg/dL) 109 H 150 H 118 H (75-99) mg/dL Assessment and Plan Assessment: acute COPD exacerbation due to tracheobronchitis Moraxella catarrhalis tracheobronchitis Advanced COPD/end-stage COPD Severe persistent asthma Acute on chronic hypoxic respiratory failure Osteoarthritis Anxiety Previous history of smoking DVT prophylaxis with heparin subcu Plan: Patient be continued on IV steroids, DuoNeb's, Pulmicort and Perforomist. Patient completed antibiotic course with ceftriaxone. Continue with doxycycline currently. Pulmonary is on board. CPAP as needed. Possible placement to infection care facility. Further recommendations based on the clinical course. Prognosis is guarded. Time with Patient: Greater than 30
[2018-07-12] MEDS: IPRATROPIUM-ALBUTEROL 3 ML NEB INHALATION PRN (23:51)
[2018-07-13] MEDS: traMADol 50 MG TAB PO PRN ×3 (06:39→18:25)
[2018-07-13] MEDS: ALPRAZolam 0.25 MG TAB PO PRN ×3 (06:39→18:26)
[2018-07-13] MEDS: PANTOPRAZOLE 40 MG TABLET PO SCH (06:39)
[2018-07-13] MEDS: methylPREDNISolone SOD SUCCI 125 MG/2 ML VIAL IV SCH ×3 (06:40→17:55)
[2018-07-13 06:46] LABS: Glucose,Whole Blood 99 mg/dL (75-99)
[2018-07-13] MEDS: INSULIN ASPART (NovoLOG) 100 UNIT/ML VIAL SQ SCH ×4 (07:08→21:02)
[2018-07-13] MEDS: IPRATROPIUM-ALBUTEROL 3 ML NEB INHALATION SCH ×4 (07:29→20:30)
[2018-07-13] MEDS: FORMOTEROL FUMARATE 20 MCG/2 ML NEBU INHALATION SCH ×2 (07:29→20:30)
[2018-07-13] MEDS: BUDESONIDE 0.5 MG/2 ML NEBU INHALATION SCH ×2 (07:31→20:30)
[2018-07-13 07:38] LABS: Basophils % (A) 0 %; Eosinophils % (A) 0 %; HCT 44.1 % (34.0-46.0); HGB 14.3 gm/dL (11.4-16.0); Lymphocytes # (A) 1.6 k/uL (1.0-4.8); Lymphocytes % (A) 11 %; MCH 29.4 pg (25.0-35.0); MCHC 32.4 g/dL (31.0-37.0); MCV 90.5 fL (80.0-100.0); Mean Platelet Volume 7.2; Monocytes # (A) 0.6 k/uL (0-1.0); Monocytes % (A) 4 %; Neutrophils # (A) 11.5 k/uL (1.3-7.7); Neutrophils % (A) 84 %; Platelet Count 238 k/uL (150-450); RBC 4.87 m/uL (3.80-5.40); RDW 14.4 % (11.5-15.5); WBC 13.8 k/uL (3.8-10.6)
[2018-07-13 08:09] LABS: Anion Gap 4 mmol/L; Blood Urea Nitrogen 31 mg/dL (7-17); Calcium 9.5 mg/dL (8.4-10.2); Carbon Dioxide 36 mmol/L (22-30); Chloride 95 mmol/L (98-107); Glucose 107 mg/dL (74-99); Potassium 4.6 mmol/L (3.5-5.1); Sodium 135 mmol/L (137-145)
[2018-07-13] MEDS: BENZONATATE 100 MG CAP PO SCH ×3 (08:26→22:18)
[2018-07-13] MEDS: buPROPion SR 150 MG TABLET.ER PO SCH ×2 (08:30→21:03)
[2018-07-13] MEDS: DOXYCYCLINE 100 MG CAP PO SCH ×2 (08:32→21:03)
[2018-07-13] MEDS: LORATADINE 10 MG TAB PO SCH (08:32)
[2018-07-13] MEDS: METOPROLOL TARTRATE 25 MG TAB PO SCH ×2 (08:32→21:03)
[2018-07-13] MEDS: HEPARIN SODIUM,PORCINE 5,000 UNIT/ML 1 ML VIAL SQ SCH ×2 (08:33→21:04)
[2018-07-13 11:39] LABS: Glucose,Whole Blood 92 mg/dL (75-99)
[2018-07-13] MEDS: ACETAMINOPHEN TAB 325 MG TAB PO PRN (12:17)
[2018-07-13 18:06] LABS: Glucose,Whole Blood 126 mg/dL (75-99)
--- NOTE | 2018-07-13 18:50 | PN ---
PROGRESS NOTE DATE OF SERVICE: July 13, 2018. She has been hemodynamically stable, but has been having increasing shortness of breath today. Her respiratory rate is 20, pulse rate of 63, temperature 97.5, blood pressure 139/77, O2 saturation on 2 L by nasal cannula is 98%. HEENT reveals pupils equal. Chest reveals decreased breath sounds with prolonged expiration and end-expiratory wheeze. Cardiovascular system is S1, S2. Abdomen is soft. There is trace edema. White count is 13.8, hemoglobin of 14.3. Sodium 135, potassium 4.6, chloride 95, bicarb 36, BUN 31, creatinine 0.67. IMPRESSION: At this time is: 1. Severe asthma with chronic obstructive pulmonary disease with acute exacerbation. 2. Steroid dependent chronic obstructive pulmonary disease. 3. Acute on chronic respiratory failure. Continue trilogy ventilator, bronchodilators, steroids, aerosolized steroids, antibiotics. Her prognosis is guarded. MMODL / IJN: [id number] /
[2018-07-13 21:02] LABS: Glucose,Whole Blood 127 mg/dL (75-99)
--- NOTE | 2018-07-13 23:01 | P.PN ---
Subjective Progress Note Date: 07/13/18 Principal diagnosis: Acute COPD exacerbation Patient is a 63-year-old female with a known history of advanced COPD, previous history of smoking, osteoarthritis and anxiety came to ER on 07/04/2018 with worsening shortness of breath and cough and sputum production. Patient was c ontinued on antibiotics no cough ceftriaxone and doxycycline. Sputum culture showed Moraxella catarrhalis. Patient is being continued on IV steroids and antibiotics and breathing treatments. Pulmonary is following. 07/12/2018 Patient says that she still having exertional dyspnea and not have baseline yet. Patient does have occasional cough without any sputum production. No fever no chills. Currently on nausea cannula oxygen at 2 L and saturating well. Patient is being continued on IV steroids, DuoNeb's, Pulmicort, Perforomist and antibiotics in the form of doxycycline. No nausea vomiting or diarrhea or abdominal pain. No other acute overnight issues. 07/13/2018 Patient is still complaining of exertional dyspnea and not feeling as well as her normal breathing status. Patient is being continued on IV steroids breathing treatments and antibiotics in the form of doxycycline. Pulmonary is following. Patient is still complaining of cough without sputum production. Current medications reviewed. Objective - Vital Signs Vital signs: Vital Signs Temp 97.5 F L 07/13/18 16:45 Pulse 72 07/13/18 20:51 Resp 20 07/13/18 16:45 BP 119/65 07/13/18 16:45 Pulse Ox 95 07/13/18 16:45 Intake & Output 07/13/18 07/13/18 07/14/18 06:59 18:59 06:59 Intake Total 30 Balance 30 Intake: Oral 30 Other: # Voids 1 1 # Bowel Movements 1 - Exam PHYSICAL EXAMINATION: Patient is lying in the bed comfortably, no acute distress, awake alert and oriented.. HEENT: Normocephalic. Neck is supple. Pupils reactive. Nostrils clear. Oral c avity is moist. Ears reveal no drainage. Neck reveals no JVD, carotid bruits, or thyromegaly. CHEST EXAMINATION: Trachea is central. Symmetrical expansion. Bilateral diminished air entry with scattered rhonchi and minimal wheeze.. CARDIAC: Normal S1, S2 with no gallops. No murmurs ABDOMEN: Soft. Bowel sounds normal. No organomegaly. No abdominal bruits. Extremities: reveal no edema. No clubbing or cyanosis Neurologically awake, alert, oriented x3 with well-coordinated movements. No focal deficits noted Skin: No rash or skin lesions. Psychiatric: Coperative. Nonsuicidal. Anxious. Musculoskeletal: No joint swelling or deformity. Normal range of motion. - Labs CBC & Chem 7: 07/13/18 07:23 07/13/18 07:23 Labs: Abnormal Lab Results - Last 24 Hours (Table) 07/13/18 07/13/18 07/13/18 Range/Units 07:23 07:23 17:53 WBC 13.8 H (3.8-10.6) k/uL Neutrophils # 11.5 H (1.3-7.7) k/uL Sodium 135 L (137-145) mmol/L Chloride 95 L (98-107) mmol/L Carbon Dioxide 36 H (22-30) mmol/L BUN 31 H (7-17) mg/dL Glucose 107 H (74-99) mg/dL POC Glucose (mg/dL) 126 H (75-99) mg/dL 07/13/18 Range/Units 21:01 WBC (3.8-10.6) k/uL Neutrophils # (1.3-7.7) k/uL Sodium (137-145) mmol/L Chloride (98-107) mmol/L Carbon Dioxide (22-30) mmol/L BUN (7-17) mg/dL Glucose (74-99) mg/dL POC Glucose (mg/dL) 127 H (75-99) mg/dL Assessment and Plan Assessment: acute COPD exacerbation due to tracheobronchitis Moraxella catarrhalis tracheobronchitis Advanced COPD/end-stage COPD Severe persistent asthma Acute on chronic hypoxic respiratory failure Osteoarthritis Anxiety Previous history of smoking DVT prophylaxis with heparin subcu Plan: Patient be continued on IV steroids, DuoNeb's, Pulmicort and Perforomist. Patient completed antibiotic course with ceftriaxone. Continue with doxycycline currently. Pulmonary is on board. CPAP as needed. Possible placement to infection care facility. Further recommendations based on the clinical course. Prognosis is guarded.
--- NOTE | 2018-07-13 23:22 | P.PN ---
Progress Note - Text Progress Note Date: 07/13/18 PROGRESS NOTE DATE OF SERVICE: 07/13/2018. REASON FOR FOLLOWUP VISIT: Tracheobronchitis, sputum positive for Moraxella INTERVAL HISTORY: The patient denies any fever or chills. The patient is complaining of shortness of breath, cough has decreased in intensity, less productive now. Patient denies nausea, vomiting, no abdominal pain or diarrhea. PHYSICAL EXAMINATION: Blood pressure 130/60 with a pulse of 75, temperature 98.1. She is 97% on 2 L nasal cannula. General description is a middle-aged female lying in bed in no distress. Respiratory system: Unlabored breathing with decreased intensity of breath sounds. No wheeze. Heart S1, S2. Regular rate and rhythm. ABDOMEN: Soft, no tenderness. LABS: No new labs have been obtained today. DIAGNOSTIC IMPRESSION AND PLAN: Patient admitted to the hospital with chronic obstructive pulmonary disease acute exacerbation with tracheobronchitis. Sputum has been positive for Moraxella the patient antibiotic has been switched to doxycycline to continue in addition to steroids and bronchodilators. Repeat a chest x-ray PA and lateral in the morning Continue supportive care.
[2018-07-14] MEDS: methylPREDNISolone SOD SUCCI 125 MG/2 ML VIAL IV SCH ×4 (00:19→20:39)
[2018-07-14] MEDS: traMADol 50 MG TAB PO PRN ×4 (01:26→21:50)
[2018-07-14] MEDS: ALPRAZolam 0.25 MG TAB PO PRN ×4 (01:26→21:50)
[2018-07-14] MEDS: PANTOPRAZOLE 40 MG TABLET PO SCH (06:57)
[2018-07-14 07:03] LABS: Glucose,Whole Blood 100 mg/dL (75-99)
[2018-07-14] MEDS: INSULIN ASPART (NovoLOG) 100 UNIT/ML VIAL SQ SCH ×4 (08:04→20:50)
[2018-07-14] MEDS: BUDESONIDE 0.5 MG/2 ML NEBU INHALATION SCH ×2 (08:41→18:37)
[2018-07-14] MEDS: IPRATROPIUM-ALBUTEROL 3 ML NEB INHALATION SCH ×4 (08:41→18:37)
[2018-07-14] MEDS: FORMOTEROL FUMARATE 20 MCG/2 ML NEBU INHALATION SCH ×2 (08:42→18:37)
[2018-07-14] MEDS: BENZONATATE 100 MG CAP PO SCH ×4 (08:50→20:38)
[2018-07-14] MEDS: DOXYCYCLINE 100 MG CAP PO SCH ×2 (08:50→20:37)
[2018-07-14] MEDS: buPROPion SR 150 MG TABLET.ER PO SCH ×2 (08:51→20:37)
[2018-07-14] MEDS: HEPARIN SODIUM,PORCINE 5,000 UNIT/ML 1 ML VIAL SQ SCH ×2 (08:52→20:39)
[2018-07-14] MEDS: METOPROLOL TARTRATE 25 MG TAB PO SCH ×2 (09:01→20:38)
[2018-07-14] MEDS: LORATADINE 10 MG TAB PO SCH (09:01)
--- NOTE | 2018-07-14 09:32 | P.PN ---
Subjective Progress Note Date: 07/14/18 Principal diagnosis: Chronic respiratory failure, Moraxella catarrhalis tracheobronchitis, severe COPD, tracheobronchitis, 07/14/2018, patient seen and evaluated examined during the rounds overall respiratory status remains marginal she is very short of breath the chest x-ray done today reviewed and compared with the prior x-ray overall extensive emphysema is noted with no significant change on x-rays 07/11/2018, patient seen and evaluated and examined during the rounds the still doing not very well in terms of breathing had to go up on Solu-Medrol she has a weak pain on the left lower thoracic wall which is chronic in nature is also going through flareup tramadol is helpful 07/10/2018, patient seen in evaluated and examined during the rounds she is slightly more short of breath this morning recently had his steroids have been tapered however with the breathing treatment she opened up would recommend on current plan of care, patient is being considered for extended care facility however patient was to go home 07/09/2018, patient seen and evaluated examined during the rounds doing well however still have shortness of breath she has been using BiPAP machine each night has been on broad-spectrum antibiotics and respiratory treatments ID service is adjusting the antibiotic 07/08/2018, patient seen and evaluated examined during the rounds respiratory status remains stable continue to use BiPAP throughout the night and when necessary during the day for respiratory difficulty sputum production is minimal is still have cough on antibiotics for Moraxella catarrhalis 07/07/2018, patient seen and evaluated examined during the rounds, respiratory status is remains stable, the chest x-ray from today reviewed there is no definite infiltrate are present Objective - Vital Signs Vital signs: Vital Signs Temp 98.6 F 07/14/18 08:15 Pulse 76 07/14/18 09:03 Resp 20 07/14/18 08:15 BP 146/73 07/14/18 08:15 Pulse Ox 96 07/14/18 08:15 Intake & Output 07/13/18 07/14/18 07/14/18 18:59 06:59 18:59 Intake Total 30 1080 Balance 30 1080 Intake: Oral 30 1080 Other: Voiding Method Toilet # Voids 1 2 # Bowel Movements 1 - Exam - Constitutional General appearance: Present: disheveled, mild distress, no acute distress - EENT Eyes: Present: EOMI, PERRLA, poor dentition ENT: Present: hard of hearing, normal oropharynx Ears: bilateral: normal - Neck Carotids: bilateral: upstroke normal, bruit absent Thyroid: bilateral: normal size - Respiratory Respiratory: bilateral: diminished, prolonged expiration - Cardiovascular Rhythm: regular Heart sounds: normal: S1, S2 - Gastrointestinal General gastrointestinal: Present: decreased bowel sounds, soft - Neurologic Neurologic: Present: CNII-XII intact - Musculoskeletal Musculoskeletal: Present: gait normal, generalized weakness, strength equal bilaterally - Psychiatric Psychiatric: Present: A&O x's 3, appropriate affect, intact judgment & insight - Labs CBC & Chem 7: 07/13/18 07:23 07/13/18 07:23 Labs: Abnormal Lab Results - Last 24 Hours (Table) 07/13/18 07/13/18 07/14/18 Range/Units 17:53 21:01 07:01 POC Glucose (mg/dL) 126 H 127 H 100 H (75-99) mg/dL Assessment and Plan Assessment: Acute on Chronic respiratory failure Moraxella catarrhalis tracheobronchitis Nonspecific left posterior chest wall pain Cachexia and weight loss due to end-stage COPD Severe COPD Chronic persistent asthma severe category Plan: Broad-spectrum spectrum antibiotics Bronchodilators Pain medicine as needed for chronic chest wall pain IV steroids, 60 mg IV every 6 in 24-48 hours we'll lower down Continue CPAP machine Placement versus home Further recommendations pending as per clinical response Time with Patient: Greater than 30
--- NOTE | 2018-07-14 09:48 | XR ---
EXAMINATION TYPE: XR chest 2V DATE OF EXAM: 07/14/2018 COMPARISON: 07/07/2018 INDICATION: Pneumonia, history of COPD TECHNIQUE: Frontal and lateral views of the chest are obtained. FINDINGS: The heart size is normal. The pulmonary vasculature is normal. The lungs are clear. There is hyperinflation flattening the diaphragms compatible COPD. No significa nt interval changes are evident. IMPRESSION: 1. No acute pulmonary process. 2. COPD.
[2018-07-14 11:23] LABS: Glucose,Whole Blood 99 mg/dL (75-99)
[2018-07-14 17:10] LABS: Glucose,Whole Blood 111 mg/dL (75-99)
[2018-07-14 20:22] LABS: Glucose,Whole Blood 179 mg/dL (75-99)
--- NOTE | 2018-07-14 20:29 | P.PN ---
Progress Note - Text Progress Note Date: 07/14/18 PROGRESS NOTE DATE OF SERVICE: 07/14/2018. REASON FOR FOLLOWUP VISIT: Tracheobronchitis, sputum positive for Moraxella INTERVAL HISTORY: The patient is afebrile, The patient continued to complain of shortness of breath, Continued to have cough but less productive now. Patient denies nausea, vomiting, no abdominal pain or diarrhea. PHYSICAL EXAMINATION: Blood pressure 140/65 with a pulse of 70, temperature 98.1. She is 97% on 2 L nasal cannula. General description is a middle-aged female lying in bed in no distress. Respiratory system: Unlabored breathing with decreased intensity of breath sounds. Occasional wheeze. Heart S1, S2. Regular rate and rhythm. ABDOMEN: Soft, no tenderness. LABS: Chest x-ray today COPD with no acute process DIAGNOSTIC IMPRESSION AND PLAN: Patient admitted to the hospital with chronic obstructive pulmonary disease acute exacerbation with tracheobronchitis. Sputum has been positive for Moraxella, Multiple x-rays this admission remains to be negative for any consolidation Patient is currently on doxycycline to continue in addition to steroids and bronchodilators Per pulmonary and Continue supportive care.
--- NOTE | 2018-07-15 00:29 | P.PN ---
Subjective Progress Note Date: 07/14/18 Principal diagnosis: Acute COPD exacerbation Patient is a 63-year-old female with a known history of advanced COPD, previous history of smoking, osteoarthritis and anxiety came to ER on 07/04/2018 with worsening shortness of breath and cough and sputum production. Patient was c ontinued on antibiotics no cough ceftriaxone and doxycycline. Sputum culture showed Moraxella catarrhalis. Patient is being continued on IV steroids and antibiotics and breathing treatments. Pulmonary is following. 07/12/2018 Patient says that she still having exertional dyspnea and not have baseline yet. Patient does have occasional cough without any sputum production. No fever no chills. Currently on nausea cannula oxygen at 2 L and saturating well. Patient is being continued on IV steroids, DuoNeb's, Pulmicort, Perforomist and antibiotics in the form of doxycycline. No nausea vomiting or diarrhea or abdominal pain. No other acute overnight issues. 07/13/2018 Patient is still complaining of exertional dyspnea and not feeling as well as her normal breathing status. Patient is being continued on IV steroids breathing treatments and antibiotics in the form of doxycycline. Pulmonary is following. Patient is still complaining of cough without sputum production. 07/14/2018 Patient is lying in the bed comfortably at this time. But still complaining of shortness of breath and not feeling very well. Patient is being continued on IV steroids and breathing treatments, Pulmicort, Perforomist and antibiotics in the form of doxycycline. Pulmonary is following. Patient does have cough without sputum production. No fever no chills. No nausea vomiting or abdominal pain or diarrhea. Patient is otherwise hemodynamically stable. Anticipate to be discharged to home with home care versus rehab with final pulmonary recommendations.. Current medications reviewed. Objective - Vital Signs Vital signs: Vital Signs Temp 98.1 F 07/14/18 20:05 Pulse 87 07/14/18 20:05 Resp 18 07/14/18 20:05 BP 110/68 07/14/18 20:05 Pulse Ox 96 07/14/18 20:05 Intake & Output 07/14/18 07/14/18 07/15/18 06:59 18:59 06:59 Intake Total 1080 500 960 Balance 1080 500 960 Intake: Oral 1080 500 960 Other: Voiding Method Toilet # Voids 2 3 - Exam PHYSICAL EXAMINATION: Patient is lying in the bed comfortably, no acute distress, awake alert and oriented.. HEENT: Normocephalic. Neck is supple. Pupils reactive. Nostrils clear. Oral cav ity is moist. Ears reveal no drainage. Neck reveals no JVD, carotid bruits, or thyromegaly. CHEST EXAMINATION: Trachea is central. Symmetrical expansion. Bilateral air entry improved. Minimal expiratory wheeze... CARDIAC: Normal S1, S2 with no gallops. No murmurs ABDOMEN: Soft. Bowel sounds normal. No organomegaly. No abdominal bruits. Extremities: reveal no edema. No clubbing or cyanosis Neurologically awake, alert, oriented x3 with well-coordinated movements. No focal deficits noted Skin: No rash or skin lesions. Psychiatric: Coperative. Nonsuicidal. Anxious. Musculoskeletal: No joint swelling or deformity. Normal range of motion. - Labs CBC & Chem 7: 07/13/18 07:23 07/13/18 07:23 Labs: Abnormal Lab Results - Last 24 Hours (Table) 07/14/18 07/14/18 07/14/18 Range/Units 07:01 17:08 20:16 POC Glucose (mg/dL) 100 H 111 H 179 H (75-99) mg/dL Assessment and Plan Assessment: acute COPD exacerbation due to tracheobronchitis Moraxella catarrhalis tracheobronchitis. Completed antibiotic course. Advanced COPD/end-stage COPD Severe persistent asthma Acute on chronic hypoxic respiratory failure Osteoarthritis Anxiety Previous history of smoking DVT prophylaxis with heparin subcu Plan: Patient be continued on IV steroids, DuoNeb's, Pulmicort and Perforomist. Patient completed antibiotic course with ceftriaxone. Continue with doxycycline currently. Pulmonary and ID is on board. CPAP as needed. Possible placement to extended care facility. Further recommendations based on the clinical course. Prognosis is guarded. Time with Patient: Greater than 30
[2018-07-15] MEDS: methylPREDNISolone SOD SUCCI 125 MG/2 ML VIAL IV SCH ×4 (02:00→17:18)
[2018-07-15] MEDS: PANTOPRAZOLE 40 MG TABLET PO SCH (06:49)
[2018-07-15 06:59] LABS: Glucose,Whole Blood 150 mg/dL (75-99)
[2018-07-15] MEDS: INSULIN ASPART (NovoLOG) 100 UNIT/ML VIAL SQ SCH ×4 (07:01→20:52)
[2018-07-15] MEDS: traMADol 50 MG TAB PO SCH ×5 (07:05→21:14)
[2018-07-15] MEDS: ALPRAZolam 0.25 MG TAB PO PRN ×2 (07:06→16:52)
[2018-07-15] MEDS: BUDESONIDE 0.5 MG/2 ML NEBU INHALATION SCH ×2 (07:45→20:47)
[2018-07-15] MEDS: IPRATROPIUM-ALBUTEROL 3 ML NEB INHALATION SCH ×4 (07:45→20:47)
[2018-07-15] MEDS: FORMOTEROL FUMARATE 20 MCG/2 ML NEBU INHALATION SCH ×2 (07:46→20:47)
[2018-07-15] MEDS: LORATADINE 10 MG TAB PO SCH (08:07)
[2018-07-15] MEDS: METOPROLOL TARTRATE 25 MG TAB PO SCH ×2 (08:07→21:14)
[2018-07-15] MEDS: HEPARIN SODIUM,PORCINE 5,000 UNIT/ML 1 ML VIAL SQ SCH ×2 (08:08→21:11)
[2018-07-15] MEDS: DOXYCYCLINE 100 MG CAP PO SCH ×2 (08:08→20:40)
[2018-07-15] MEDS: BENZONATATE 100 MG CAP PO SCH ×3 (08:08→20:40)
[2018-07-15] MEDS: buPROPion SR 150 MG TABLET.ER PO SCH ×2 (08:08→20:40)
[2018-07-15 12:07] LABS: Glucose,Whole Blood 97 mg/dL (75-99)
--- NOTE | 2018-07-15 13:49 | P.PN ---
Subjective Progress Note Date: 07/15/18 Principal diagnosis: Chronic respiratory failure, Moraxella catarrhalis tracheobronchitis, severe COPD, tracheobronchitis, 07/15/2018 patient seen and evaluated examined during the rounds she is slightly less short of breath but however remains on high dose of steroids 60 mg every 6 hourly on supplemental oxygen she has been bedbound not been ambulated, her chest x-ray from yesterday is not much change remains on broad-spectrum antibiotics 07/14/2018, patient seen and evaluated examined during the rounds overall respiratory status remains marginal she is very short of breath the chest x-ray done today reviewed and compared with the prior x-ray overall extensive emphysema is noted with no significant change on x-rays 07/11/2018, patient seen and evaluated and examined during the rounds the still doing not very well in terms of breathing had to go up on Solu-Medrol she has a weak pain on the left lower thoracic wall which is chronic in nature is also going through flareup tramadol is helpful 07/10/2018, patient seen in evaluated and examined during the rounds she is slightly more short of breath this morning recently had his steroids have been tapered however with the breathing treatment she opened up would recommend on current plan of care, patient is being considered for extended care facility however patient was to go home 07/09/2018, patient seen and evaluated examined during the rounds doing well however still have shortness of breath she has been using BiPAP machine each night has been on broad-spectrum antibiotics and respiratory treatments MARLI laguerre is adjusting the antibiotic 07/08/2018, patient seen and evaluated examined during the rounds respiratory status remains stable continue to use BiPAP throughout the night and when necessary during the day for respiratory difficulty sputum production is minimal is still have cough on antibiotics for Moraxella catarrhalis 07/07/2018, patient seen and evaluated examined during the rounds, respiratory status is remains stable, the chest x-ray from today reviewed there is no definite infiltrate are present Objective - Vital Signs Vital signs: Vital Signs Temp 97.9 F 07/15/18 12:00 Pulse 76 07/15/18 12:35 Resp 16 07/15/18 12:00 BP 129/75 07/15/18 12:00 Pulse Ox 97 07/15/18 12:00 Intake & Output 07/14/18 07/15/18 07/15/18 18:59 06:59 18:59 Intake Total 500 960 Balance 500 960 Intake: Oral 500 960 Other: Voiding Method Toilet # Voids 3 1 - Exam - Constitutional General appearance: Present: disheveled, mild distress, no acute distress - EENT Eyes: Present: EOMI, PERRLA, poor dentition ENT: Present: hard of hearing, normal oropharynx Ears: bilateral: normal - Neck Carotids: bilateral: upstroke normal, bruit absent Thyroid: bilateral: normal size - Respiratory Respiratory: bilateral: diminished, prolonged expiration - Cardiovascular Rhythm: regular Heart sounds: normal: S1, S2 - Gastrointestinal General gastrointestinal: Present: decreased bowel sounds, soft - Neurologic Neurologic: Present: CNII-XII intact - Musculoskeletal Musculoskeletal: Present: gait normal, generalized weakness, strength equal b ilaterally - Psychiatric Psychiatric: Present: A&O x's 3, appropriate affect, intact judgment & insight - Labs CBC & Chem 7: 07/13/18 07:23 07/13/18 07:23 Labs: Abnormal Lab Results - Last 24 Hours (Table) 07/14/18 07/14/18 07/15/18 Range/Units 17:08 20:16 06:56 POC Glucose (mg/dL) 111 H 179 H 150 H (75-99) mg/dL Assessment and Plan Assessment: Acute on Chronic respiratory failure Moraxella catarrhalis tracheobronchitis Nonspecific left posterior chest wall pain Cachexia and weight loss due to end-stage COPD Severe COPD Chronic persistent asthma severe category Plan: Broad-spectrum spectrum antibiotics Bronchodilators Pain medicine as needed for chronic chest wall pain IV steroids, 60 mg IV every 6 we'll lower down Continue CPAP machine Placement versus home Further recommendations pending as per clinical response Time with Patient: Greater than 30
[2018-07-15 17:42] LABS: Glucose,Whole Blood 202 mg/dL (75-99)
[2018-07-15 18:34] LABS: Glucose,Whole Blood 166 mg/dL (75-99)
[2018-07-15 20:44] LABS: Glucose,Whole Blood 139 mg/dL (75-99)
[2018-07-16] MEDS: methylPREDNISolone SOD SUCCI 125 MG/2 ML VIAL IV SCH ×2 (00:10→06:13)
[2018-07-16] MEDS: PANTOPRAZOLE 40 MG TABLET PO SCH (06:13)
[2018-07-16] MEDS: ALPRAZolam 0.25 MG TAB PO PRN ×2 (06:13→13:05)
[2018-07-16 06:18] LABS: Glucose,Whole Blood 111 mg/dL (75-99)
[2018-07-16] MEDS: ACETAMINOPHEN TAB 325 MG TAB PO PRN ×2 (06:19→13:01)
[2018-07-16] MEDS: IPRATROPIUM-ALBUTEROL 3 ML NEB INHALATION SCH ×3 (06:41→15:49)
[2018-07-16] MEDS: BUDESONIDE 0.5 MG/2 ML NEBU INHALATION SCH (06:41)
[2018-07-16] MEDS: FORMOTEROL FUMARATE 20 MCG/2 ML NEBU INHALATION SCH (06:41)
[2018-07-16] MEDS: INSULIN ASPART (NovoLOG) 100 UNIT/ML VIAL SQ SCH ×2 (06:47→12:16)
[2018-07-16] MEDS: traMADol 50 MG TAB PO SCH ×2 (08:02→14:09)
[2018-07-16] MEDS ORDERED: predniSONE 20 MG TAB PO SCH (09:00)
[2018-07-16] MEDS: BENZONATATE 100 MG CAP PO SCH ×2 (09:48→16:10)
[2018-07-16] MEDS: HEPARIN SODIUM,PORCINE 5,000 UNIT/ML 1 ML VIAL SQ SCH (09:48)
[2018-07-16] MEDS: METOPROLOL TARTRATE 25 MG TAB PO SCH (09:52)
[2018-07-16] MEDS: LORATADINE 10 MG TAB PO SCH (09:52)
[2018-07-16] MEDS: buPROPion SR 150 MG TABLET.ER PO SCH (09:53)
[2018-07-16] MEDS: DOXYCYCLINE 100 MG CAP PO SCH (09:53)
[2018-07-16 12:04] LABS: Glucose,Whole Blood 228 mg/dL (75-99)
--- NOTE | 2018-07-16 15:01 | P.PN ---
Subjective Progress Note Date: 07/15/18 63-year-old female with a known history of advanced COPD, previous history of smoking, osteoarthritis and anxiety came to ER on 07/04/2018 with worsening shortness of breath and cough and sputum production. Patient was continued on antibiotics no cough ceftriaxone and doxycycline. Sputum culture showed Moraxella catarrhalis. Patient is being continued on IV steroids and antibiotics and breathing treatments. Pulmonary is following. 07/12/2018 Patient says that she still having exertional dyspnea and not have baseline yet. Patient does have occasional cough without any sputum production. No fever no chills. Currently on nausea cannula oxygen at 2 L and saturating well. Patient is being continued on IV steroids, DuoNeb's, Pulmicort, Perforomist and antibiotics in the form of doxycycline. No nausea vomiting or diarrhea or abdominal pain. No other acute overnight issues. 07/13/2018 Patient is still complaining of exertional dyspnea and not feeling as well as her normal breathing status. Patient is being continued on IV steroids breathing treatments and antibiotics in the form of doxycycline. Pulmonary is following. Patient is still complaining of cough without sputum production. 07/14/2018 Patient is lying in the bed comfortably at this time. But still complaining of shortness of breath and not feeling very well. Patient is being continued on IV steroids and breathing treatments, Pulmicort, Perforomist and antibiotics in the form of doxycycline. Pulmonary is following. Patient does have cough without sputum production. No fever no chills. No nausea vomiting or abdominal pain or diarrhea. Patient is otherwise hemodynamically stable. 07/15/2018 The patient still complaining of shortness of breath although objectively patient has fairly good air entry although minimally diminished saturating well on room air. Discussed with the grinding machine operator portable is recommending switching to oral prednisone monitor her one more night and possibly can be discharged tomorrow.Constitutional: Denied any fatigue denied any fever. Cardio vascular: denied any chest pain, palpitations Gastrointestinal denied any nausea vomiting Pulmonary: As mentioned in HPI Neurologic denied any new focal deficits All inpatient medications were reviewed and appropriate changes in these medications as dictated in the interval history and assessment and plan. Objective - Vital Signs Vital signs: Vital Signs Temp 97.9 F 07/16/18 11:57 Pulse 90 07/16/18 14:01 Resp 28 H 07/16/18 14:01 BP 120/75 07/16/18 11:57 Pulse Ox 93 L 07/16/18 14:01 Intake & Output 07/15/18 07/16/18 07/16/18 18:59 06:59 18:59 Intake Total 1380 Balance 1380 Intake: Oral 1380 Other: Voiding Method Toilet # Voids 2 1 - Exam PHYSICAL EXAMINATION: GENERAL: The patient is alert and oriented x3, not in any acute distress. Well developed, well nourished. HEENT: Pupils are round and equally reacting to light. EOMI. No scleral icterus. No conjunctival pallor. Normocephalic, atraumatic. No pharyngeal erythema. No thyromegaly. CARDIOVASCULAR: S1 and S2 present. No murmurs, rubs, or gallops. PULMONARY: Minimally diminished no wheezing fairly good air entry bilateral lung price ABDOMEN: Soft, nontender, nondistended, normoactive bowel sounds. No palpable organomegaly. MUSCULOSKELETAL: No joint swelling or deformity. EXTREMITIES: No cyanosis, clubbing, or pedal edema. NEUROLOGICAL: Gross neurological examination did not reveal any focal deficits. SKIN: No rashes. - Labs CBC & Chem 7: 07/13/18 07:23 07/13/18 07:23 Labs: Abnormal Lab Results - Last 24 Hours (Table) 07/15/18 07/15/18 07/15/18 Range/Units 17:36 18:33 20:43 POC Glucose (mg/dL) 202 H 166 H 139 H (75-99) mg/dL 07/16/18 07/16/18 Range/Units 06:17 12:02 POC Glucose (mg/dL) 111 H 228 H (75-99) mg/dL Assessment and Plan Plan: acute COPD exacerbation due to tracheobronchitis: Patient will be switched to oral steroids and monitor 1 more night, patient received an of days of antibiotics for Moraxella catarrhalis and infectious disease not recommending any more continues to antibody therapy upon discharge Moraxella catarrhalis tracheobronchitis. Completed antibiotic course. Advanced COPD/end-stage COPD, chronic Hypercapnic respiratory failure uses 2 reflux and at home Acute on chronic hypoxic respiratory failure Osteoarthritis Anxiety Previous history of smoking DVT prophylaxis with heparin subcu
--- NOTE | 2018-07-16 15:11 | P.DS ---
Providers Date of admission: 07/04/18 14:31 Attending physician: Kurtis Piña Consults: 07/04/18 16:06 Consult Physician Routine Consulting Provider: Cayden Huang Consult Reason/Comments: Exacerbation of COPD Do you want consulting provider notified?: Yes 07/06/18 20:55 Consult Physician Routine Consulting Provider: Miracle Mg Consult Reason/Comments: moraxella positive sputum Do you want consulting provider notified?: Yes Primary care physician: Kurtis Piña [facility] Course: 63-year-old female with a known history of advanced COPD, previous history of smoking, osteoarthritis and anxiety came to ER on 07/04/2018 with worsening shortness of breath and cough and sputum production. Patient was continued on antibiotics no cough ceftriaxone and doxycycline. Sputum culture showed Moraxella catarrhalis. Patient is being continued on IV steroids and antibiotics and breathing treatments. Pulmonary is following. 07/12/2018 Patient says that she still having exertional dyspnea and not have baseline yet. Patient does have occasional cough without any sputum production. No fever no chills. Currently on nausea cannula oxygen at 2 L and saturating well. Patient is being continued on IV steroids, DuoNeb's, Pulmicort, Perforomist and antibiotics in the form of doxycycline. No nausea vomiting or diarrhea or abdominal pain. No other acute overnight issues. 07/13/2018 Patient is still complaining of exertional dyspnea and not feeling as well as her normal breathing status. Patient is being continued on IV steroids breathing treatments and antibiotics in the form of doxycycline. Pulmonary is following. Patient is still complaining of cough without sputum production. 07/14/2018 Patient is lying in the bed comfortably at this time. But still complaining of shortness of breath and not feeling very well. Patient is being continued on IV steroids and breathing treatments, Pulmicort, Perforomist and antibiotics in the form of doxycycline. Pulmonary is following. Patient does have cough without sputum production. No fever no chills. No nausea vomiting or abdominal pain or diarrhea. Patient is otherwise hemodynamically stable. 07/15/2018 The patient still complaining of shortness of breath although objectively patient has fairly good air entry although minimally diminished saturating well on room air. Discussed with the dressage judge is recommending switching to oral prednisone monitor her one more night and possibly can be discharged tomorrow. 07/16/2018 Patient objectively saturating well is saturating at 93% upon ablation. All that them and the family patient patient felt short of breath and complaining of lightheadedness because of which nursing staff were concerned and called me. Although she is complaining of shortness of breath genitally as well as l ightheadedness there is no objective support for her complaints of shortness of breath and she was saturating well fairly good air entry and lung price. I believe patient can be discharged home on 2 L of oxygen she didn't qualify for subacute rehab. PHYSICAL EXAMINATION: GENERAL: The patient is alert and oriented x3, not in any acute distress. Well developed, well nourished. HEENT: Pupils are round and equally reacting to light. EOMI. No scleral icterus. No conjunctival pallor. Normocephalic, atraumatic. No pharyngeal erythema. No thyromegaly. CARDIOVASCULAR: S1 and S2 present. No murmurs, rubs, or gallops. PULMONARY: Mildly diminished air entry into bilateral lung price. ABDOMEN: Soft, nontender, nondistended, normoactive bowel sounds. No palpable organomegaly. MUSCULOSKELETAL: No joint swelling or deformity. EXTREMITIES: No cyanosis, clubbing, or pedal edema. NEUROLOGICAL: Gross neurological examination did not reveal any focal deficits. SKIN: No rashes. Assessment and Plan Plan: acute COPD exacerbation due to tracheobronchitis: Patient will be discharged on oral steroids, patient received an of days of antibiotics for Moraxella catarrhalis and infectious disease not recommending any more continues to antibody therapy upon discharge Moraxella catarrhalis tracheobronchitis. Completed antibiotic course. Advanced COPD/end-stage COPD, chronic Hypercapnic respiratory failure uses 2 reflux and at home Acute on chronic hypoxic respiratory failure Osteoarthritis Anxiety Previous history of smoking DVT prophylaxis with heparin subcu Patient Condition at Discharge: Serious Plan - Discharge Summary New Discharge Prescriptions: New predniSONE 10 mg PO DAILY #30 tab Continue Budesonide [Pulmicort] 0.5 mg INHALATION RT-BID nebu Arformoterol Tartrate [Brovana] 15 mcg INHALATION RT-BID Albuterol Inhaler [Ventolin Hfa Inhaler] 2 puff INHALATION RT-QID PRN PRN Reason: Shortness Of Breath Metoprolol Tartrate 25 mg PO DAILY Pantoprazole [Protonix] 40 mg PO -[facility] #30 tablet. ALPRAZolam [Xanax] 0.25 mg PO QID #120 tablet rOPINIRole HCL [Requip] 0.5 mg PO HS Umeclidinium Brm/Vilanterol Tr [Anoro Ellipta 62.5-25 Mcg INH] 1 puff INHALATION RT-DAILY Albuterol Sulfate [Proair Hfa] 1 - 2 puff INHALATION RT-Q6H PRN PRN Reason: Shortness Of Breath buPROPion HCL [Wellbutrin SR] 150 mg PO BID Discontinued predniSONE 10 mg PO DAILY Discharge Medication List Budesonide [Pulmicort] 0.5 mg INHALATION RT-BID nebu 12/17/14 [Rx] Arformoterol Tartrate [Brovana] 15 mcg INHALATION RT-BID 04/14/15 [History] Albuterol Inhaler [Ventolin Hfa Inhaler] 2 puff INHALATION RT-QID PRN 09/03/16 [History] Metoprolol Tartrate 25 mg PO DAILY 09/03/16 [History] Pantoprazole [Protonix] 40 mg PO AC-BRKFST #30 tablet. 06/15/17 [Rx] ALPRAZolam [Xanax] 0.25 mg PO QID #120 tablet 07/04/17 [Rx] rOPINIRole HCL [Requip] 0.5 mg PO HS 12/18/17 [History] Albuterol Sulfate [Proair Hfa] 1 - 2 puff INHALATION RT-Q6H PRN 07/04/18 [History] Umeclidinium Brm/Vilanterol Tr [Anoro Ellipta 62.5-25 Mcg INH] 1 puff INHALATION RT-DAILY 07/04/18 [History] buPROPion HCL [Wellbutrin SR] 150 mg PO BID 07/04/18 [History] predniSONE 10 mg PO DAILY #30 tab 07/16/18 [Rx] Follow up Appointment(s)/Referral(s): Kurtis Piña MD [Primary Care Provider] - [facility], [NON-STAFF] - As Needed (This is the phone number to reach the Palliative Care team through [facility].) Cayden Huang MD [STAFF PHYSICIAN] - 1 Week (please call for appointment, office will be open again on .) Discharge Disposition: HOME WITH HOME HEALTH SERVICES
[2018-07-16 16:08] VITALS: RESP 20
[2018-07-16 16:34] VITALS: BP 117/70; PULSE 75; TEMP 98
== END 2018-07-16 17:25 | disposition home health service (06) | DRG 190 ==
LOC: EC 11:56 → 4MS4W 14:31 → 6PED 07-06 14:24
PROVIDERS: ADMIT Family Medicine; ATTEND Family Medicine
DX: J43.9 Emphysema, unspecified (principal); J96.21 Acute and chronic respiratory failure with hypoxia; J96.22 Acute and chronic respiratory failure with hypercapnia; J45.51 Severe persistent asthma with (acute) exacerbation; R64 Cachexia; F41.9 Anxiety disorder, unspecified; K21.9 Gastro-esophageal reflux disease without esophagitis; M19.90 Unspecified osteoarthritis, unspecified site; T38.0X5A Adverse effect of glucocorticoids and synthetic analogues, initial encounter; R51 Headache; D72.829 Elevated white blood cell count, unspecified; R07.89 Other chest pain; R53.81 Other malaise; J20.8 Acute bronchitis due to other specified organisms; Z79.52 Long term (current) use of systemic steroids; Z79.899 Other long term (current) drug therapy; Z99.81 Dependence on supplemental oxygen; Z87.01 Personal history of pneumonia (recurrent); Z87.891 Personal history of nicotine dependence; Z88.1 Allergy status to other antibiotic agents; Z88.0 Allergy status to penicillin; Z88.8 Allergy status to other drugs, medicaments and biological substances; Z68.23 Body mass index [BMI] 23.0-23.9, adult; Z90.49 Acquired absence of other specified parts of digestive tract; Z80.0 Family history of malignant neoplasm of digestive organs; Z80.52 Family history of malignant neoplasm of bladder; Z82.49 Family history of ischemic heart disease and other diseases of the circulatory system; Z82.5 Family history of asthma and other chronic lower respiratory diseases
CPT/HCPCS: 36415; 71046; 80048; 80053; 83605; 83735; 84484; 85025; 85027; 85610; 85730; 87070; 87205; 93005; 94640; 94760; 96374; 96376; 99285

== ENCOUNTER 2018-08-29 12:29 | Inpatient (IN) | payer BC ==
[2018-08-29] MEDS ORDERED: IPRATROPIUM-ALBUTEROL 3 ML NEB INHALATION STA (12:57)
[2018-08-29] MEDS: SODIUM CHLORIDE 0.9% 500 ML 500 ML IV SCH ×2 (13:08→14:49)
[2018-08-29] MEDS: SODIUM CHLORIDE 0.9% 1,000 ML IV SCH ×2 (13:09→22:20)
[2018-08-29 13:21] LABS: Appearance,Urine Clear (Clear); Bilirubin,Urine Negative (Negative); Blood,Urine Negative (Negative); Color,Urine Light Yellow; Glucose,Urine (UA) Negative (Negative); Ketones,Urine Negative (Negative); Leukocyte Esterase,Urine Negative (Negative); Nitrite,Urine Negative (Negative); PH, Urine 5.5 (5.0-8.0); Protein,Urine Negative (Negative); Specific Gravity,Urine 1.003 (1.001-1.035); Urobilinogen,Urine <2.0 mg/dL (<2.0)
[2018-08-29 13:23] LABS: ABG Base Excess 3.1 mmol/L; ABG HCO3 27 mmol/L (21-25); ABG Oxygen Saturation 96.2 % (94-97); ABG PCO2 38 mmHg (35-45); ABG PH 7.46 (7.35-7.45); ABG PO2 80 mmHg (83-108); ABG TCO2 28 mmol/L (19-24); Allen Test Performed? Yes
[2018-08-29 13:26] LABS: Basophils % (A) 0 %; Eosinophils % (A) 0 %; HCT 40.8 % (34.0-46.0); HGB 13.1 gm/dL (11.4-16.0); Lymphocytes # (A) 1.3 k/uL (1.0-4.8); Lymphocytes % (A) 8 %; MCH 29.4 pg (25.0-35.0); MCHC 32.2 g/dL (31.0-37.0); MCV 91.3 fL (80.0-100.0); Mean Platelet Volume 7.1; Monocytes # (A) 0.4 k/uL (0-1.0); Monocytes % (A) 3 %; Neutrophils # (A) 14.6 k/uL (1.3-7.7); Neutrophils % (A) 89 %; Platelet Count 336 k/uL (150-450); RBC 4.47 m/uL (3.80-5.40); RDW 14.9 % (11.5-15.5); WBC 16.5 k/uL (3.8-10.6)
[2018-08-29 13:27] LABS: Partial Thromboplastin Time 23.2 sec (22.0-30.0); Prothrombin Time 10.6 sec (9.0-12.0)
[2018-08-29 13:35] LABS: ALT 24 U/L (9-52); AST 18 U/L (14-36); African American GFR (CKD) >90 (>60 ml/min/1.73 sqM); Albumin 4.2 g/dL (3.5-5.0); Alkaline Phosphatase 77 U/L (38-126); Anion Gap 13 mmol/L; Blood Urea Nitrogen 12 mg/dL (7-17); Calcium 9.5 mg/dL (8.4-10.2); Carbon Dioxide 24 mmol/L (22-30); Chloride 102 mmol/L (98-107); Glucose 136 mg/dL (74-99); Potassium 4.5 mmol/L (3.5-5.1); Sodium 139 mmol/L (137-145); Total Bilirubin 0.6 mg/dL (0.2-1.3); Total Protein 6.9 g/dL (6.3-8.2)
--- NOTE | 2018-08-29 13:43 | XR ---
EXAMINATION TYPE: XR chest 2V DATE OF EXAM: 08/29/2018 COMPARISON: 07/14/2018 HISTORY: Difficulty breathing and fever TECHNIQUE: Frontal and lateral views of the chest are obtained. FINDINGS: Pulmonary hyperinflation and flattening of the diaphragms are seen with underlying COPD. T here is a new left basilar opacity, given its recent development suspicious for pneumonia. Cardiomedi astinal silhouette is within normal limits. Mild multilevel degenerative changes of the spine are see n. IMPRESSION: New left basilar airspace disease in comparison to the recent prior of 07/14/2018, suspec merna unifocal pneumonia.
--- NOTE | 2018-08-29 13:48 | ED ---
SOB HPI - General Chief Complaint: Shortness of Breath Stated Complaint: SOB Time Seen by Provider: 08/29/18 12:37 Source: patient Mode of arrival: wheelchair Limitations: physical limitation - History of Present Illness Initial Comments: This is a 63-year-old female with a history of COPD on chronic O2 use at 2 L who presents emergency department for worsening shortness of breath. The patient has a history of multiple hospital admissions for her COPD. She does follow with Dr. Huang with pulmonology and is also enrolled in palliative care. The gabriella ent was recently hospitalized at the end of June and has been taking Levaquin since she left the hospital. She states that her shortness of breath has gradually worsened since that time. Today she was evaluated by her nurse practitioner who did a chest x-ray and ordered her to be more short of breath and advised her to come emergency department. The patient does state that she has noticed that she's had a higher heart rate which is typical for her when her breathing is not under control. She's been using all of her medications and taking her antibiotics. She states that she was directed to the hospital at the direction of her preforming machine operator nurse practitioner. He has a very chills. No chest pain. She does admit to a cough with sputum production that is either brown or yellow. She does note that she was hypoxic this morning in the low 80s on her normal oxygen. No other acute complaints. - Related Data Home Medications Medication Instructions Recorded Confirmed Arformoterol Tartrate [Brovana] 15 mcg INHALATION RT-BID 04/14/15 08/29/18 Albuterol Inhaler [Ventolin Hfa 2 puff INHALATION RT-QID PRN 09/03/16 08/29/18 Inhaler] Metoprolol Tartrate 25 mg PO DAILY 09/03/16 08/29/18 rOPINIRole HCL [Requip] 0.5 mg PO HS 12/18/17 08/29/18 Albuterol Sulfate [Proair Hfa] 1 - 2 puff INHALATION RT-Q6H PRN 07/04/18 08/29/18 Umeclidinium Brm/Vilanterol Tr 1 puff INHALATION RT-DAILY 07/04/18 08/29/18 [Anoro Ellipta 62.5-25 Mcg INH] buPROPion HCL [Wellbutrin SR] 150 mg PO BID 07/04/18 08/29/18 Levofloxacin 750 mg PO DAILY 08/29/18 08/29/18 traMADol HCl [Ultram] 50 mg PO QID PRN 08/29/18 08/29/18 Previous Rx's Medication Instructions Recorded Budesonide [Pulmicort] 0.5 mg INHALATION RT-BID nebu 12/17/14 Pantoprazole [Protonix] 40 mg PO AC-BRKFST #30 tablet. 06/15/17 ALPRAZolam [Xanax] 0.25 mg PO QID #120 tablet 07/04/17 Allergies Allergy/AdvReac Type Severity Reaction Status Date / Time montelukast [From Singulair] Allergy Itching Verified 08/29/18 13:07 Penicillins Allergy Rash/Hives Verified 08/29/18 13:07 Review of Systems ROS Statement: Those systems with pertinent positive or pertinent negative responses have been documented in the HPI. ROS Other: All systems not noted in ROS Statement are negative. Past Medical History Past Medical History: COPD, Osteoarthritis (OA), Pneumonia Additional Past Medical History / Comment(s): HOME 02 2 LITERS N/C, EDENTULOUS, previous spine fracture did pt no brace worn. 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 History of Any Multi-Drug Resistant Organisms: None Reported Past Surgical History: Appendectomy Additional Past Surgical History / Comment(s): LASER EYE SX, lt breast bx-neg. Previous colonoscopy done prior to 1999. Past Anesthesia/Blood Transfusion Reactions: No Reported Reaction Past Psychological History: Anxiety Smoking Status: Former smoker Past Alcohol Use History: None Reported Past Drug Use History: None Reported - Past Family History Mother Family Medical History: Cancer Additional Family Medical History / Comment(s): breast/BLADDER CA Father Family Medical History: Cancer, Myocardial Infarction (ND) Additional Family Medical History / Comment(s): BRAIN TUMORS. Grandfather had colon cancer. General Exam - General Exam Comments Initial Comments: Constitutional: Awake alert Appears comfortable Head: Normocephalic atraumatic Eyes: no conjunctival injection No scleral icterus EOMI Neck: No JVD Supple Heart: Regular rate rhythm normal S1-S2 no murmurs Lungs: Tachypnea with conversational dyspnea Clear to auscultation bilaterally No wheezing No rales Abdomen: Soft nondistended nontender Extremities: Non edematous DP pulses intact Radial pulses intact Neuro: A&Ox3 No focal neurologic deficits Psych: Appropriate mood and affect Limitations: physical limitation Course Vital Signs 08/29/18 08/29/18 08/29/18 12:34 12:47 12:53 Temperature 98.2 F Pulse Rate 125 H Respiratory 24 28 H Rate Blood Pressure 132/67 O2 Sat by Pulse 94 L 90 L Oximetry 08/29/18 08/29/18 08/29/18 13:00 13:16 13:30 Temperature Pulse Rate 112 H 107 H 114 H Respiratory 15 17 Rate Blood Pressure 126/67 107/52 O2 Sat by Pulse 93 L Oximetry 08/29/18 08/29/18 08/29/18 14:00 14:30 15:00 Temperature Pulse Rate 104 H 107 H 93 Respiratory 24 19 11 L Rate Blood Pressure 103/70 111/71 126/38 O2 Sat by Pulse 97 98 97 Oximetry 08/29/18 15:30 Temperature Pulse Rate 89 Respiratory 18 Rate Blood Pressure 115/65 O2 Sat by Pulse 99 Oximetry - Reevaluation(s) Reevaluation #1: 08/29/18 16:37 EKG showing sinus tachycardia with a rate of 133. There is no abnormal ST segment changes or T-wave inversions. QTC is 401. There are 2 PVCs. Other intervals normal. Medical Decision Making - Medical Decision Making Is a 63-year-old female presents emergency department for worsening shortness of breath and cough productive of sputum. Patient was found to have a leukocytosis and was tachycardic on arrival. She was given 1 L of fluids with improvement in her heart rate and her blood pressure remained stable. Rest her blood work was also unremarkable. Chest x-ray did show a new infiltrate. The patient started on vancomycin and cefepime will be admitted to the hospital for further treatment. Dr. Huang was updated and Dr. Sommers except see admission. - Lab Data Result diagrams: 08/29/18 12:57 08/29/18 12:57 Lab Results 08/29/18 08/29/18 08/29/18 Range/Units 12:57 12:57 12:57 WBC 16.5 H (3.8-10.6) k/uL RBC 4.47 (3.80-5.40) m/uL Hgb 13.1 (11.4-16.0) gm/dL Hct 40.8 (34.0-46.0) % MCV 91.3 (80.0-100.0) fL MCH 29.4 (25.0-35.0) pg MCHC 32.2 (31.0-37.0) g/dL RDW 14.9 (11.5-15.5) % Plt Count 336 (150-450) k/uL Neutrophils % 89 % Lymphocytes % 8 % Monocytes % 3 % Eosinophils % 0 % Basophils % 0 % Neutrophils # 14.6 H (1.3-7.7) k/uL Lymphocytes # 1.3 (1.0-4.8) k/uL Monocytes # 0.4 (0-1.0) k/uL Eosinophils # 0.0 (0-0.7) k/uL Basophils # 0.0 (0-0.2) k/uL PT (9.0-12.0) sec INR (<1.2) APTT (22.0-30.0) sec Sample Site ABG pH (7.35-7.45) ABG pCO2 (35-45) mmHg ABG pO2 (83-108) mmHg ABG HCO3 (21-25) mmol/L ABG Total CO2 (19-24) mmol/L ABG O2 Saturation (94-97) % ABG Base Excess mmol/L Kirit Test FiO2 % Sodium 139 (137-145) mmol/L Potassium 4.5 (3.5-5.1) mmol/L Chloride 102 (98-107) mmol/L Carbon Dioxide 24 (22-30) mmol/L Anion Gap 13 mmol/L BUN 12 (7-17) mg/dL Creatinine 0.63 (0.52-1.04) mg/dL Est GFR (CKD-EPI)AfAm >90 (>60 ml/min/1.73 sqM) Est GFR (CKD-EPI)NonAf >90 (>60 ml/min/1.73 sqM) Glucose 136 H (74-99) mg/dL Plasma Lactic Acid Jordy (0.7-2.0) mmol/L Calcium 9.5 (8.4-10.2) mg/dL Total Bilirubin 0.6 (0.2-1.3) mg/dL AST 18 (14-36) U/L ALT 24 (9-52) U/L Alkaline Phosphatase 77 (38-126) U/L CK-MB (CK-2) 0.9 (0.0-2.4) ng/mL Troponin I <0.012 (0.000-0.034) ng/mL Total Protein 6.9 (6.3-8.2) g/dL Albumin 4.2 (3.5-5.0) g/dL Urine Color Urine Appearance (Clear) Urine pH (5.0-8.0) Ur Specific Spring (1.001-1.035) Urine Protein (Negative) Urine Glucose (UA) (Negative) Urine Ketones (Negative) Urine Blood (Negative) Urine Nitrite (Negative) Urine Bilirubin (Negative) Urine Urobilinogen (<2.0) mg/dL Ur Leukocyte Esterase (Negative) Influenza Type A RNA (Not Detectd) Influenza Type B (PCR) (Not Detectd) 08/29/18 08/29/18 08/29/18 Range/Units 12:57 12:57 12:57 WBC (3.8-10.6) k/uL RBC (3.80-5.40) m/uL Hgb (11.4-16.0) gm/dL Hct (34.0-46.0) % MCV (80.0-100.0) fL MCH (25.0-35.0) pg MCHC (31.0-37.0) g/dL RDW (11.5-15.5) % Plt Count (150-450) k/uL Neutrophils % % Lymphocytes % % Monocytes % % Eosinophils % % Basophils % % Neutrophils # (1.3-7.7) k/uL Lymphocytes # (1.0-4.8) k/uL Monocytes # (0-1.0) k/uL Eosinophils # (0-0.7) k/uL Basophils # (0-0.2) k/uL PT 10.6 (9.0-12.0) sec INR 1.0 (<1.2) APTT 23.2 (22.0-30.0) sec Sample Site ABG pH (7.35-7.45) ABG pCO2 (35-45) mmHg ABG pO2 (83-108) mmHg ABG HCO3 (21-25) mmol/L ABG Total CO2 (19-24) mmol/L ABG O2 Saturation (94-97) % ABG Base Excess mmol/L Kirit Test FiO2 % Sodium (137-145) mmol/L Potassium (3.5-5.1) mmol/L Chloride (98-107) mmol/L Carbon Dioxide (22-30) mmol/L Anion Gap mmol/L BUN (7-17) mg/dL Creatinine (0.52-1.04) mg/dL Est GFR (CKD-EPI)AfAm (>60 ml/min/1.73 sqM) Est GFR (CKD-EPI)NonAf (>60 ml/min/1.73 sqM) Glucose (74-99) mg/dL Plasma Lactic Acid Jordy 2.3 H* (0.7-2.0) mmol/L Calcium (8.4-10.2) mg/dL Total Bilirubin (0.2-1.3) mg/dL AST (14-36) U/L ALT (9-52) U/L Alkaline Phosphatase (38-126) U/L CK-MB (CK-2) (0.0-2.4) ng/mL Troponin I (0.000-0.034) ng/mL Total Protein (6.3-8.2) g/dL Albumin (3.5-5.0) g/dL Urine Color Light Yellow Urine Appearance Clear (Clear) Urine pH 5.5 (5.0-8.0) Ur Specific Spring 1.003 (1.001-1.035) Urine Protein Negative (Negative) Urine Glucose (UA) Negative (Negative) Urine Ketones Negative (Negative) Urine Blood Negative (Negative) Urine Nitrite Negative (Negative) Urine Bilirubin Negative (Negative) Urine Urobilinogen <2.0 (<2.0) mg/dL Ur Leukocyte Esterase Negative (Negative) Influenza Type A RNA (Not Detectd) Influenza Type B (PCR) (Not Detectd) 08/29/18 08/29/18 Range/Units 13:15 14:01 WBC (3.8-10.6) k/uL RBC (3.80-5.40) m/uL Hgb (11.4-16.0) gm/dL Hct (34.0-46.0) % MCV (80.0-100.0) fL MCH (25.0-35.0) pg MCHC (31.0-37.0) g/dL RDW (11.5-15.5) % Plt Count (150-450) k/uL Neutrophils % % Lymphocytes % % Monocytes % % Eosinophils % % Basophils % % Neutrophils # (1.3-7.7) k/uL Lymphocytes # (1.0-4.8) k/uL Monocytes # (0-1.0) k/uL Eosinophils # (0-0.7) k/uL Basophils # (0-0.2) k/uL PT (9.0-12.0) sec INR (<1.2) APTT (22.0-30.0) sec Sample Site rrad ABG pH 7.46 H (7.35-7.45) ABG pCO2 38 (35-45) mmHg ABG pO2 80 L (83-108) mmHg ABG HCO3 27 H (21-25) mmol/L ABG Total CO2 28 H (19-24) mmol/L ABG O2 Saturation 96.2 (94-97) % ABG Base Excess 3.1 mmol/L Kirit Test Yes FiO2 28 % Sodium (137-145) mmol/L Potassium (3.5-5.1) mmol/L Chloride (98-107) mmol/L Carbon Dioxide (22-30) mmol/L Anion Gap mmol/L BUN (7-17) mg/dL Creatinine (0.52-1.04) mg/dL Est GFR (CKD-EPI)AfAm (>60 ml/min/1.73 sqM) Est GFR (CKD-EPI)NonAf (>60 ml/min/1.73 sqM) Glucose (74-99) mg/dL Plasma Lactic Acid Jordy (0.7-2.0) mmol/L Calcium (8.4-10.2) mg/dL Total Bilirubin (0.2-1.3) mg/dL AST (14-36) U/L ALT (9-52) U/L Alkaline Phosphatase (38-126) U/L CK-MB (CK-2) (0.0-2.4) ng/mL Troponin I (0.000-0.034) ng/mL Total Protein (6.3-8.2) g/dL Albumin (3.5-5.0) g/dL Urine Color Urine Appearance (Clear) Urine pH (5.0-8.0) Ur Specific Spring (1.001-1.035) Urine Protein (Negative) Urine Glucose (UA) (Negative) Urine Ketones (Negative) Urine Blood (Negative) Urine Nitrite (Negative) Urine Bilirubin (Negative) Urine Urobilinogen (<2.0) mg/dL Ur Leukocyte Esterase (Negative) Influenza Type A RNA Not Detected (Not Detectd) Influenza Type B (PCR) Not Detected (Not Detectd) Disposition Clinical Impression: Pneumonia, COPD exacerbation Disposition: ADMITTED IP TO THIS HOSP Condition: Stable
[2018-08-29 13:57] LABS: Creatine Kinase MB 0.9 ng/mL (0.0-2.4); Troponin I <0.012 ng/mL (0.000-0.034)
[2018-08-29] MEDS ORDERED: CEFEPIME 1 GM in SODIUM CHLORIDE 0.9% 50 ML IVPB STA (15:47)
[2018-08-29] MEDS ORDERED: VANCOMYCIN IV PER PHARMACY 1 EACH MISC MISCELLANE PRN (15:47)
[2018-08-29] MEDS ORDERED: VANCOMYCIN 1,250 MG in SODIUM CHLORIDE 0.9% 250 ML IVPB STA (15:56)
[2018-08-29] MEDS ORDERED: ACETAMINOPHEN TAB 325 MG TAB PO PRN (16:33)
[2018-08-29] MEDS ORDERED: NALOXONE 0.4 MG/ML 1 ML VIAL IV PRN (16:33)
[2018-08-29 19:48] LABS: Glucose,Whole Blood 99 mg/dL (75-99)
[2018-08-29] MEDS: INSULIN ASPART (NovoLOG) 100 UNIT/ML VIAL SQ SCH (19:50)
[2018-08-29 20:00] LABS: Troponin I <0.012 ng/mL (0.000-0.034)
[2018-08-29] MEDS: BUDESONIDE 0.5 MG/2 ML NEBU INHALATION SCH (21:48)
[2018-08-29] MEDS: IPRATROPIUM-ALBUTEROL 3 ML NEB INHALATION SCH (21:48)
[2018-08-29] MEDS: traMADol 50 MG TAB PO PRN (22:21)
[2018-08-29] MEDS: ALPRAZolam 0.25 MG TAB PO SCH (22:21)
[2018-08-29] MEDS: buPROPion SR 150 MG TABLET.ER PO SCH (22:22)
[2018-08-29] MEDS: METOPROLOL TARTRATE 25 MG TAB PO SCH (22:40)
[2018-08-30] MEDS: IPRATROPIUM-ALBUTEROL 3 ML NEB INHALATION SCH ×7 (00:06→23:19)
[2018-08-30 01:12] LABS: Creatine Kinase MB 1.1 ng/mL (0.0-2.4); Troponin I <0.012 ng/mL (0.000-0.034)
[2018-08-30] MEDS: VANCOMYCIN 1,000 MG in SODIUM CHLORIDE 0.9% 250 ML IVPB SCH ×3 (01:53→17:16)
[2018-08-30] MEDS ORDERED: TEMAZEPAM 15 MG CAP PO PRN (02:15)
[2018-08-30] MEDS: traMADol 50 MG TAB PO PRN (04:05)
[2018-08-30 06:54] LABS: Glucose,Whole Blood 85 mg/dL (75-99)
[2018-08-30] MEDS: FORMOTEROL FUMARATE 20 MCG/2 ML NEBU INHALATION SCH ×2 (07:10→20:28)
[2018-08-30] MEDS: BUDESONIDE 0.5 MG/2 ML NEBU INHALATION SCH ×2 (07:10→20:28)
[2018-08-30] MEDS: INSULIN ASPART (NovoLOG) 100 UNIT/ML VIAL SQ SCH ×4 (07:29→21:01)
[2018-08-30 07:43] LABS: Basophils # (A) 0.1 k/uL (0-0.2); Basophils % (A) 1 %; Eosinophils # (A) 0.3 k/uL (0-0.7); Eosinophils % (A) 2 %; HCT 33.3 % (34.0-46.0); HGB 10.7 gm/dL (11.4-16.0); Lymphocytes # (A) 2.2 k/uL (1.0-4.8); Lymphocytes % (A) 17 %; MCH 29.4 pg (25.0-35.0); MCHC 32.1 g/dL (31.0-37.0); MCV 91.6 fL (80.0-100.0); Mean Platelet Volume 7.6; Monocytes # (A) 0.6 k/uL (0-1.0); Monocytes % (A) 5 %; Neutrophils # (A) 9.6 k/uL (1.3-7.7); Neutrophils % (A) 75 %; Platelet Count 292 k/uL (150-450); RBC 3.64 m/uL (3.80-5.40); RDW 15.8 % (11.5-15.5); WBC 12.9 k/uL (3.8-10.6)
[2018-08-30 07:59] LABS: African American GFR (CKD) >90 (>60 ml/min/1.73 sqM); Anion Gap 7 mmol/L; Blood Urea Nitrogen 13 mg/dL (7-17); Calcium 8.6 mg/dL (8.4-10.2); Carbon Dioxide 27 mmol/L (22-30); Chloride 105 mmol/L (98-107); Glucose 85 mg/dL (74-99); Potassium 3.8 mmol/L (3.5-5.1); Sodium 139 mmol/L (137-145)
--- NOTE | 2018-08-30 08:33 | HP ---
HISTORY AND PHYSICAL DATE OF SERVICE: 08/29/2018 I am covering for Dr. Piña. HISTORY OF PRESENT ILLNESS: This is a 63-year-old woman with a past medical history of multiple medical problems including history of COPD, history of DJD, history of pneumonia, history of home O2, chronic hypoxic respiratory history, history of anxiety being followed by Dr. Piña and as well as Dr. Huang in the outpatient setting was complaining of shortness of breath and sputum for the last several weeks. The patient also had increased sputum production. The patient was on 2 L oxygen nasal cannula. The patient apparently is also enrolled in palliative care also because of increasing worsening shortness of breath. Patient came to [facility], admitted for further evaluation and treatment. A chest x-ray was done which was personally reviewed by me, showed new left base airspace disease compared to the previous one. There is no history of fever, chills or rigors. No history of headache, loss of consciousness or seizures at this time. PAST MEDICAL HISTORY: History of COPD, history of DJD, history of pneumonia, history of chronic hypoxic respiratory failure. MEDICATIONS ARE: 1. Ultram 50 mg q.i.d. p.r.n. 2. Requip 0.5 mg q.h.s. 3. Wellbutrin SR 150 mg p.o. b.i.d. 4. Anoro Ellipta 1 puff daily. 5. Protonix 40 mg daily. 6. Metoprolol 25 mg daily. 7. Levaquin 750 mg p.o. daily. 8. Pulmicort 0.5 b.i.d. 9. Brovana 15 mcg p.o. b.i.d. 10.ProAir 1-2 puffs q.6 p.r.n. 11.Ventolin 2 puffs q.i.d. p.r.n. 12.Xanax 0.5 q.i.d. ALLERGIES: Include PENICILLIN. FAMILY HISTORY: History of bladder cancer in the family. SOCIAL HISTORY: History of smoking, no history of alcohol intake. REVIEW OF SYSTEMS: ENT: No diminished vision or diminished hearing. CARDIOVASCULAR: No angina. RESPIRATION: As mentioned earlier. GI: No nausea. : No dysuria. NERVOUS SYSTEM: No numbness or weakness. ALLERGY/IMMUNOLOGY: No asthma or hayfever. MUSCULOSKELETAL: As mentioned earlier. HEMATOLOGY: No history of anemia. ENDOCRINE: No history of diabetes or hypothyroidism. CONSTITUTIONAL: As mentioned earlier. DERMATOLOGY: Negative. RHEUMATOLOGY: Negative. PSYCHIATRY: As mentioned earlier. PHYSICAL EXAMINATION: Patient is alert and oriented x3. Pulse is 101, blood pressure 133/84, respiration 20, temperature 98.6, pulse ox 96% on 2 L. HEENT: Conjunctivae normal. Oral mucosa moist. NECK: No jugular venous distention. No lymph node enlargement. CARDIOVASCULAR: S1, S2, muffled. RESPIRATORY: Breath sounds diminished at the bases. Bilateral scattered rhonchi, no crackles. Expiratory wheezing also present. ABDOMEN: Soft, nontender. No mass palpable. LEGS: No edema. No swelling. NERVOUS SYSTEM: Higher functions as mentioned earlier, moves all 4 limbs. No focal motor deficits. LYMPHATICS: No lymph node enlargement in the neck or axillae. SKIN: No ulcer, rash or bleeding. JOINTS: No active deforming arthropathy. LABS: WBC 16.3, hemoglobin 13.1, ABGs noted. ASSESSMENT: 1. Chronic obstructive pulmonary disease acute exacerbation with acute left lower lobe pneumonia, possibly gram-negative. 2. History of degenerative joint disease. 3. History of pneumonia. 4. History of chronic hypoxic respiratory failure 2 L oxygen. 5. Appendectomy. 6. Anxiety. 7. Remote history of nicotine dependence. RECOMMENDATION: In this 63-year-old gentleman who presented with multiple complex medical problems, will monitor the patient closely, continue with the current management and symptomatic treatment. Will initiate broad-spectrum IV antibiotics, bronchodilators. Also recommend pulmonary consultation with Dr. Sal weeks. Closely monitor. Guarded prognosis. Further recommendations to follow. A copy of this will be forwarded to Dr. Piña who is the primary physician. Will resume the home medications also. See orders for details. MMODL / IJN: [id number] /
[2018-08-30] MEDS: methylPREDNISolone SOD SUCCI 125 MG/2 ML VIAL IV SCH ×2 (08:35→12:43)
[2018-08-30] MEDS: LORATADINE 10 MG TAB PO SCH (08:36)
[2018-08-30] MEDS: METOPROLOL TARTRATE 25 MG TAB PO SCH ×2 (08:36→21:01)
[2018-08-30] MEDS: PANTOPRAZOLE 40 MG TABLET PO SCH (08:36)
[2018-08-30] MEDS: HEPARIN SODIUM,PORCINE 5,000 UNIT/ML 1 ML VIAL SQ SCH ×3 (08:36→21:03)
[2018-08-30] MEDS: ALPRAZolam 0.25 MG TAB PO SCH ×3 (08:37→21:01)
[2018-08-30] MEDS: buPROPion SR 150 MG TABLET.ER PO SCH ×2 (08:39→21:01)
[2018-08-30] MEDS: SODIUM CHLORIDE 0.9% 1,000 ML IV SCH ×2 (08:43→17:14)
[2018-08-30] MEDS ORDERED: METOPROLOL TARTRATE 25 MG TAB PO SCH (09:00)
[2018-08-30] MEDS ORDERED: AZITHROMYCIN 500 MG in SODIUM CHLORIDE 0.9% 250 ML IVPB SCH (09:00)
[2018-08-30 11:01] LABS: Glucose,Whole Blood 101 mg/dL (75-99)
--- NOTE | 2018-08-30 12:34 | P.CNPUL ---
History of Present Illness Consult date: 08/30/18 Reason for consult: dyspnea, cough, COPD, hypoxemia, pneumonia Chief complaint: Cough shortness of breath progressive started a vehicle History of present illness: Patient is a 63-year-old well-known to me with chronic respiratory failure and end-stage lung disease she is on home prednisone home oxygen and home ventilator based severe COPD she was enrolled in palliative care. 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 She states that her shortness of breath has gradually worsened since that time. she was evaluated by her nurse practitioner who did a chest x-ray and ordered her to be more short of breath and advised her to come emergency department. The patient does state that she has noticed that she's had a higher heart rate which is typical for her when her breathing is not under control. She's been using all of her medications and taking her antibiotics. She has chills. No chest pain. She does admit to a cough with sputum production that is either brown or yellow. She does note that she was hypoxic this morning in the low 80s on her normal oxygen. No other acute complaints. Review of Systems All systems: negative Past Medical History Past Medical History: COPD, Osteoarthritis (OA), Pneumonia Additional Past Medical History / Comment(s): HOME 02 2 LITERS N/C, EDENTULOUS, previous spine fracture did pt no brace worn. PAST [employer] HISTORY: She has no history of STDs. 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 History of Any Multi-Drug Resistant Organisms: None Reported Past Surgical History: Appendectomy Additional Past Surgical History / Comment(s): LASER EYE SX, lt breast bx-neg. Previous colonoscopy done prior to 1999. Past Anesthesia/Blood Transfusion Reactions: No Reported Reaction Past Psychological History: Anxiety Additional Psychological History / Comment(s): PT LIVES WITH HER DAUGHER IN A SINGLE LEVEL HOME THAT HAS 4 PORCH STEPS AND A BASEMENT W/12 STEPS. NO OUTSIDE SERVICES RECIEVED. HAS HOME O2 AND A NEBULIZER. PT IS INDEPENDANT WHEN UP. 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 Smoking Status: Former smoker Past Alcohol Use History: None Reported Additional Past Alcohol Use History / Comment(s): STARTED SMOKING AROUND 1976- PPD, QUIT . Past Drug Use History: None Reported - Past Family History Mother Family Medical History: Cancer Additional Family Medical History / Comment(s): breast/BLADDER CA Father Family Medical History: Cancer, Myocardial Infarction ([place]) Additional Family Medical History / Comment(s): BRAIN TUMORS. Grandfather had colon cancer. Medications and Allergies Home Medications Medication Instructions Recorded Confirmed Type Budesonide [Pulmicort] 0.5 mg INHALATION RT-BID nebu 12/17/14 08/29/18 Rx Arformoterol Tartrate [Brovana] 15 mcg INHALATION RT-BID 04/14/15 08/29/18 History Albuterol Inhaler [Ventolin Hfa 2 puff INHALATION RT-QID PRN 09/03/16 08/29/18 History Inhaler] Metoprolol Tartrate 25 mg PO DAILY 09/03/16 08/29/18 History Pantoprazole [Protonix] 40 mg PO GODWIN #30 tablet. 06/15/17 08/29/18 Rx ALPRAZolam [Xanax] 0.25 mg PO QID #120 tablet 07/04/17 08/29/18 Rx rOPINIRole HCL [Requip] 0.5 mg PO HS 12/18/17 08/29/18 History Albuterol Sulfate [Proair Hfa] 1 - 2 puff INHALATION RT-Q6H PRN 07/04/18 08/29/18 History Umeclidinium Brm/Vilanterol Tr 1 puff INHALATION RT-DAILY 07/04/18 08/29/18 History [Anoro Ellipta 62.5-25 Mcg INH] buPROPion HCL [Wellbutrin SR] 150 mg PO BID 07/04/18 08/29/18 History Levofloxacin 750 mg PO DAILY 08/29/18 08/29/18 History traMADol HCl [Ultram] 50 mg PO QID PRN 08/29/18 08/29/18 History Allergies Allergy/AdvReac Type Severity Reaction Status Date / Time montelukast [From Singulair] Allergy Itching Verified 08/29/18 13:07 Penicillins Allergy Rash/Hives Verified 08/29/18 13:07 Physical Exam Vitals: Vital Signs Temp Pulse Pulse Pulse Resp BP BP 08/30/18 11:28 90 08/30/18 11:17 98.1 F 88 75 18 08/30/18 07:31 94 08/30/18 07:21 90 08/30/18 07:10 92 08/30/18 04:19 96 08/30/18 04:01 92 08/29/18 23:00 97.9 F 74 20 08/29/18 22:10 96 08/29/18 21:49 92 08/29/18 21:06 98.6 F 101 H 20 133/84 08/29/18 18:32 97.0 F L 96 26 H 144/78 08/29/18 16:36 98.0 F 92 18 127/89 08/29/18 15:30 89 18 115/65 08/29/18 15:00 93 11 L 126/38 08/29/18 14:30 107 H 19 111/71 08/29/18 14:00 104 H 24 103/70 08/29/18 13:30 114 H 17 107/52 08/29/18 13:16 107 H 08/29/18 13:00 112 H 15 126/67 08/29/18 12:53 28 H 08/29/18 12:47 08/29/18 12:34 98.2 F 125 H 24 132/67 BP Pulse Ox 08/30/18 11:28 08/30/18 11:17 97/56 97 08/30/18 07:31 08/30/18 07:21 08/30/18 07:10 08/30/18 04:19 08/30/18 04:01 08/29/18 23:00 126/80 100 08/29/18 22:10 08/29/18 21:49 08/29/18 21:06 96 08/29/18 18:32 98 08/29/18 16:36 97 08/29/18 15:30 99 08/29/18 15:00 97 08/29/18 14:30 98 08/29/18 14:00 97 08/29/18 13:30 93 L 08/29/18 13:16 08/29/18 13:00 08/29/18 12:53 08/29/18 12:47 90 L 08/29/18 12:34 94 L Intake and Output 08/29/18 08/30/18 08/30/18 22:59 06:59 14:59 Intake Total 590 240 Balance 590 240 Intake: Oral 590 240 Other: # Voids 2 1 - Constitutional General appearance: disheveled, mild distress, thin - EENT Eyes: anicteric sclerae, EOMI, PERRLA, dentition normal, normal appearance ENT: normal oropharynx Ears: bilateral: normal - Neck Neck: normal ROM Carotids: bilateral: upstroke normal, bruit absent Thyroid: bilateral: normal size - Respiratory Respiratory: bilateral: rhonchi, wheezing, prolonged expiration, negative: CTA, diminished, dullness, rales - Cardiovascular Rhythm: regular Heart sounds: normal: S1, S2 - Gastrointestinal General gastrointestinal: normal bowel sounds, soft - Integumentary Integumentary: normal, normal turgor - Neurologic Neurologic: CNII-XII intact - Musculoskeletal Musculoskeletal: gait normal, generalized weakness - Psychiatric Psychiatric: A&O x's 3, appropriate affect, intact judgment & insight Results - Laboratory Findings CBC and BMP: 08/30/18 06:49 08/30/18 06:49 ABG ABG pH 7.46 (7.35-7.45) H 08/29/18 13:15 ABG pCO2 38 mmHg (35-45) 08/29/18 13:15 ABG pO2 80 mmHg (83-108) L 08/29/18 13:15 ABG O2 Saturation 96.2 % (94-97) 08/29/18 13:15 PT/INR, D-dimer PT 10.6 sec (9.0-12.0) 08/29/18 12:57 INR 1.0 (<1.2) 08/29/18 12:57 Abnormal lab findings: Abnormal Labs 08/29/18 08/29/18 08/29/18 12:57 12:57 12:57 WBC 16.5 H RBC Hgb Hct RDW Neutrophils # 14.6 H ABG pH ABG pO2 ABG HCO3 ABG Total CO2 Glucose 136 H POC Glucose (mg/dL) Plasma Lactic Acid Jordy 2.3 H* 08/29/18 08/30/18 08/30/18 13:15 06:49 10:59 WBC 12.9 H RBC 3.64 L Hgb 10.7 L Hct 33.3 L RDW 15.8 H Neutrophils # 9.6 H ABG pH 7.46 H ABG pO2 80 L ABG HCO3 27 H ABG Total CO2 28 H Glucose POC Glucose (mg/dL) 101 H Plasma Lactic Acid Jordy - Diagnostic Findings Chest x-ray: report reviewed, image reviewed (Left-sided infiltrate new) Assessment and Plan Assessment: Healthcare associated pneumonia Acute on chronic hypoxic respiratory failure Severe ventilator dependent COPD History of recent tracheobronchitis Arrhythmia related to paroxysmal supraventricular tachycardia Plan: Broad-spectrum antibiotics Breathing treatments IV steroids Resume and obtain home ventilator from home DVT and peptic ulcer disease prophylaxis Further recommendations pending plan of care as per clinical response of the patient Time with Patient: Greater than 30
--- NOTE | 2018-08-30 15:16 | PN ---
PROGRESS NOTE DATE OF SERVICE: 08/30/2018 I am covering for Dr. Piña. This 63-year-old woman was admitted with COPD acute exacerbation as well as possible pneumonia, is being closely monitored. No chest pain. No palpitations. No fever. Dr. Huang is following the patient closely. PHYSICAL EXAM: Alert and oriented x3. Pulse 75, blood pressure 97/53, respiration 18, temperature 98.1, pulse ox 97% on 2 L. HEENT: Conjunctivae normal NECK: No jugular venous distension. CARDIOVASCULAR: S1, S2, muffled. RESPIRATION: Breath sounds diminished at the bases, a few scattered rhonchi, no crackles. ABDOMEN: Soft, nontender. LEGS: No edema, no swelling. NERVOUS SYSTEM: No focal deficits. LABS: WBC 12.8, hemoglobin 10.7. ASSESSMENT: 1. Chronic obstructive pulmonary disease acute exacerbation with acute left lower lobe pneumonia, possibly gram-negative. 2. History of degenerative joint disease. 3. History of pneumonia. 4. Chronic hypoxic respiratory failure on 2 L oxygen. 5. Appendectomy. 6. History of anxiety. 7. Remote history of nicotine dependence. RECOMMENDATION: Recommend to continue current management and symptomatic treatment. Continue with IV antibiotics. Continue the bronchodilators. Otherwise, IV steroids, which could be tapered and closely follow with Dr. Huang. Guarded prognosis. Further recommendations to follow. MMODL / IJN: [id number] /
[2018-08-30 17:00] LABS: Glucose,Whole Blood 121 mg/dL (75-99)
[2018-08-30] MEDS: methylPREDNISolone SOD SUCCI 40 MG/ML 1 ML VIAL IV SCH (17:17)
[2018-08-30] MEDS: guaiFENesin SYRUP 100MG/5ML 200 MG/10 ML CUP PO PRN (19:10)
[2018-08-30 20:14] LABS: Glucose,Whole Blood 255 mg/dL (75-99)
[2018-08-31] MEDS: methylPREDNISolone SOD SUCCI 40 MG/ML 1 ML VIAL IV SCH ×5 (00:13→23:58)
[2018-08-31] MEDS: VANCOMYCIN 1,000 MG in SODIUM CHLORIDE 0.9% 250 ML IVPB SCH ×3 (01:32→17:15)
[2018-08-31] MEDS: guaiFENesin SYRUP 100MG/5ML 200 MG/10 ML CUP PO PRN ×3 (01:59→20:44)
[2018-08-31] MEDS: IPRATROPIUM-ALBUTEROL 3 ML NEB INHALATION SCH ×6 (03:40→23:49)
[2018-08-31] MEDS: SODIUM CHLORIDE 0.9% 1,000 ML IV SCH ×2 (03:56→17:04)
[2018-08-31] MEDS: traMADol 50 MG TAB PO PRN ×2 (03:56→17:21)
[2018-08-31] MEDS: BUDESONIDE 0.5 MG/2 ML NEBU INHALATION SCH ×2 (06:48→20:30)
[2018-08-31] MEDS: FORMOTEROL FUMARATE 20 MCG/2 ML NEBU INHALATION SCH ×2 (06:48→20:29)
[2018-08-31 06:50] LABS: Glucose,Whole Blood 130 mg/dL (75-99)
[2018-08-31] MEDS: INSULIN ASPART (NovoLOG) 100 UNIT/ML VIAL SQ SCH ×4 (07:01→20:43)
[2018-08-31] MEDS: PANTOPRAZOLE 40 MG TABLET PO SCH (07:25)
[2018-08-31] MEDS: ALPRAZolam 0.25 MG TAB PO SCH ×3 (07:25→20:43)
[2018-08-31] MEDS: AZITHROMYCIN 500 MG TAB PO SCH (07:25)
[2018-08-31] MEDS: buPROPion SR 150 MG TABLET.ER PO SCH ×2 (07:26→20:43)
[2018-08-31] MEDS: HEPARIN SODIUM,PORCINE 5,000 UNIT/ML 1 ML VIAL SQ SCH ×2 (07:26→20:43)
[2018-08-31] MEDS: LORATADINE 10 MG TAB PO SCH (07:30)
[2018-08-31] MEDS: METOPROLOL TARTRATE 25 MG TAB PO SCH ×2 (07:30→20:43)
[2018-08-31] MEDS ORDERED: VANCOMYCIN TROUGH DUE 1 EACH MISC MISCELLANE ONE (09:00)
[2018-08-31 09:02] LABS: African American GFR (CKD) >90 (>60 ml/min/1.73 sqM)
[2018-08-31 11:46] LABS: Glucose,Whole Blood 139 mg/dL (75-99)
--- NOTE | 2018-08-31 11:48 | P.PN ---
Subjective Progress Note Date: 08/31/18 Principal diagnosis: Healthcare associated pneumonia, acute on chronic hypoxic and hypercapnic respiratory failure, a steroid dependent ventilator-dependent oxygen dependent severe COPD, recent tracheobronchitis, arrhythmia related to paroxysmal supraventricular tachycardia 08/31/2018, patient seen eval reexamined during the rounds cuff congestion shortness breath is essentially unchanged, but little activity causes significant desaturation and shortness of breath, I have advised to use the noninvasive ventilation and bring the machine from home patient feels that due to significant congestion and cough with sputum production at night cannot use the machine, IV is out patient is to get midline in the meantime we'll give by mouth Patient is a 63-year-old well-known to me with chronic respiratory failure and end-stage lung disease she is on home prednisone home oxygen and home ventilator based severe COPD she was enrolled in palliative care. 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 She states that her shortness of breath has gradually worsened since that time. she was evaluated by her nurse practitioner who did a chest x-ray and ordered her to be more short of breath and advised her to come emergency department. The patient does state that she has noticed that she's had a higher heart rate which is typical for her when her breathing is not under control. She's been using all of her medications and taking her antibiotics. She has chills. No chest pain. She does admit to a cough with sputum production that is either brown or yellow. She does note that she was hypoxic this morning in the low 80s on her normal oxygen. No other acute complaints. Objective - Vital Signs Vital signs: Vital Signs Temp 97.8 F 08/31/18 05:31 Pulse 84 08/31/18 11:14 Resp 18 08/31/18 07:34 BP 105/61 08/31/18 05:31 Pulse Ox 98 08/31/18 05:31 Intake & Output 08/30/18 08/31/18 08/31/18 18:59 06:59 18:59 Intake Total 1750 535 Output Total 1 2 Balance 1750 534 -2 Intake: Intake, IV Titration 550 Amount Azithromycin 500 mg In 250 Sodium Chloride 0.9% 250 ml @ 250 mls/hr IVPB DAILY [facility] Rx#:[id number] Vancomycin 1,000 mg In 250 Sodium Chloride 0.9% 250 ml @ 125 mls/hr IVPB Q8H [facility] Rx#:[id number] cefTRIAXone 1 gm In 50 Sodium Chloride 0.9% 50 ml @ 100 mls/hr IVPB Q24HR [facility] Rx#:[id number] Oral 1200 535 Output: Stool 1 2 Other: Voiding Method Toilet Toilet Toilet # Voids 4 2 2 - Exam - Constitutional General appearance: disheveled, mild distress, thin - EENT Eyes: anicteric sclerae, EOMI, PERRLA, dentition normal, normal appearance ENT: normal oropharynx Ears: bilateral: normal - Neck Neck: normal ROM Carotids: bilateral: upstroke normal, bruit absent Thyroid: bilateral: normal size - Respiratory Respiratory: bilateral: rhonchi, wheezing, prolonged expiration, negative: CTA, diminished, dullness, rales - Cardiovascular Rhythm: regular Heart sounds: normal: S1, S2 - Gastrointestinal General gastrointestinal: normal bowel sounds, soft - Integumentary Integumentary: normal, normal turgor - Neurologic Neurologic: CNII-XII intact - Musculoskeletal Musculoskeletal: gait normal, generalized weakness - Psychiatric Psychiatric: A&O x's 3, appropriate affect, intact judgment & insight - Labs CBC & Chem 7: 08/30/18 06:49 08/31/18 08:29 Labs: Abnormal Lab Results - Last 24 Hours (Table) 08/30/18 08/30/18 08/31/18 Range/Units 16:58 20:12 06:48 POC Glucose (mg/dL) 121 H 255 H 130 H (75-99) mg/dL Microbiology - Last 24 Hours (Table) 08/29/18 17:22 Gram Stain - Final Sputum Sputum Culture - Final 08/29/18 12:57 Urine Culture - Final Urine,Voided 08/29/18 12:57 Blood Culture - Preliminary Blood No Growth after 24 hours Assessment and Plan Assessment: Healthcare associated pneumonia Acute on chronic hypoxic respiratory failure Severe ventilator dependent COPD History of recent tracheobronchitis Arrhythmia related to paroxysmal supraventricular tachycardia Plan: Broad-spectrum antibiotics Breathing treatments IV steroids Resume and obtain home ventilator from home DVT and peptic ulcer disease prophylaxis Further recommendations pending plan of care as per clinical response of the patient Time with Patient: Greater than 30
[2018-08-31] MEDS: predniSONE 20 MG TAB PO SCH (12:19)
[2018-08-31 17:05] LABS: Glucose,Whole Blood 180 mg/dL (75-99)
--- NOTE | 2018-08-31 20:15 | PN ---
PROGRESS NOTE DATE OF SERVICE: 08/31/2018 I am covering for Dr. Piña. This 63-year-old woman was admitted with COPD exacerbation as well as possible pneumonia is being closely monitored. Patient on antibiotics. IV access is limited at this time. Dr. Huang is following the patient closely. Midline is planned tomorrow. No chest pain. No palpitations. No fever. EXAM: Alert and oriented times three. Pulse 87, blood pressure 104/60, respiration 16, temperature 98.1, pulse ox 98% on 2 L. HEENT: Conjunctivae normal. NECK: No jugular venous distention. CARDIOVASCULAR: S1, S2 muffled. RESPIRATORY: Breath sounds diminished in the bases. Bilateral scattered rhonchi and crackles. ABDOMEN is soft, nontender. LEGS: No edema. No swelling. CENTRAL NERVOUS SYSTEM: No focal deficits. LABS: Otherwise, CBC, BMP noted. Glucose 139. ASSESSMENT: 1. Chronic obstructive pulmonary disease acute exacerbation with acute left lower pneumonia possibly gram-negative. 2. History of degenerative joint disease. 3. History of pneumonia. 4. Chronic hypoxic respiratory failure on 2 L home O2 at home. 5. Appendectomy. 6. History of anxiety. 7. Remote history of nicotine dependence. RECOMMENDATIONS AND DISCUSSION: Recommend to continue current medications, management, symptomatic treatment. Continue with bronchodilators. Continue the antibiotics. Closely follow with Pulmonary and Dr. Piña will follow. MMODL / IJN: [id number] /
[2018-08-31 20:40] LABS: Glucose,Whole Blood 140 mg/dL (75-99)
[2018-09-01] MEDS: SODIUM CHLORIDE 0.9% 1,000 ML IV SCH ×3 (02:13→21:17)
[2018-09-01] MEDS: VANCOMYCIN 1,000 MG in SODIUM CHLORIDE 0.9% 250 ML IVPB SCH ×3 (02:13→17:28)
[2018-09-01] MEDS: traMADol 50 MG TAB PO PRN ×2 (03:21→17:38)
[2018-09-01] MEDS: guaiFENesin SYRUP 100MG/5ML 200 MG/10 ML CUP PO PRN (03:21)
[2018-09-01] MEDS: IPRATROPIUM-ALBUTEROL 3 ML NEB INHALATION SCH ×5 (05:16→19:13)
[2018-09-01] MEDS: methylPREDNISolone SOD SUCCI 40 MG/ML 1 ML VIAL IV SCH ×4 (05:24→23:28)
[2018-09-01] MEDS: BUDESONIDE 0.5 MG/2 ML NEBU INHALATION SCH ×2 (07:14→19:13)
[2018-09-01] MEDS: FORMOTEROL FUMARATE 20 MCG/2 ML NEBU INHALATION SCH ×2 (07:14→19:14)
[2018-09-01 07:20] LABS: Glucose,Whole Blood 93 mg/dL (75-99)
[2018-09-01] MEDS: INSULIN ASPART (NovoLOG) 100 UNIT/ML VIAL SQ SCH ×4 (07:28→20:59)
--- NOTE | 2018-09-01 08:00 | P.PN ---
Subjective Progress Note Date: 09/01/18 Principal diagnosis: This is a continue present on a 63-year-old white female essentially admitted for exacerbation COPD. She has multiple exacerbations of the last year. She states significant frustration. No voiding difficulties otherwise stated. No sleep issues are pain elements noted. Objective - Vital Signs Vital signs: Vital Signs Temp 97.5 F L 09/01/18 05:00 Pulse 90 09/01/18 07:40 Resp 18 09/01/18 05:00 BP 132/83 09/01/18 05:00 Pulse Ox 98 09/01/18 07:15 Intake & Output 08/31/18 09/01/18 09/01/18 18:59 06:59 18:59 Intake Total 650 1150 Output Total 2 Balance 648 1150 Intake: Intake, IV Titration 0 Amount Vancomycin 1,000 mg In 0 Sodium Chloride 0.9% 250 ml @ 125 mls/hr IVPB Q8H [facility] Rx#:[id number] cefTRIAXone 1 gm In 0 Sodium Chloride 0.9% 50 ml @ 100 mls/hr IVPB Q24HR [facility] Rx#:[id number] Oral 650 1150 Output: Stool 2 Other: Voiding Method Toilet # Voids 2 3 - Constitutional General appearance: Present: thin - EENT Eyes: Absent: abnormal pupil - Neck Neck: Absent: lymphadenopathy - Respiratory Respiratory: bilateral: prolonged expiration - Cardiovascular Rhythm: regular Heart sounds: normal: S1, S2 Abnormal Heart Sounds: Absent: S3 Gallop - Gastrointestinal General gastrointestinal: Present: soft. Absent: tenderness - Integumentary Integumentary: Absent: cellulitis - Labs CBC & Chem 7: 08/30/18 06:49 08/31/18 08:29 Labs: Abnormal Lab Results - Last 24 Hours (Table) 08/31/18 08/31/18 08/31/18 Range/Units 11:44 16:55 20:28 POC Glucose (mg/dL) 139 H 180 H 140 H (75-99) mg/dL Microbiology - Last 24 Hours (Table) 08/29/18 12:57 Blood Culture - Preliminary Blood No Growth after 48 hours 08/29/18 17:22 Gram Stain - Final Sputum Sputum Culture - Final Assessment and Plan (1) COPD (chronic obstructive pulmonary disease) Current Visit: No Status: Acute Code(s): J44.9 - CHRONIC OBSTRUCTIVE PULMONARY DISEASE, UNSPECIFIED SNOMED Code(s): 59842462 Plan: Continue current regimen of treatment. Appreciate pulmonary input. Wean slowly off of steroids. See orders otherwise.
[2018-09-01] MEDS: LORATADINE 10 MG TAB PO SCH (08:12)
[2018-09-01] MEDS: ALPRAZolam 0.25 MG TAB PO SCH ×3 (08:12→20:59)
[2018-09-01] MEDS: METOPROLOL TARTRATE 25 MG TAB PO SCH ×2 (08:12→20:59)
[2018-09-01] MEDS: PANTOPRAZOLE 40 MG TABLET PO SCH (08:12)
[2018-09-01] MEDS: AZITHROMYCIN 500 MG TAB PO SCH (08:12)
[2018-09-01] MEDS: predniSONE 20 MG TAB PO SCH (08:12)
[2018-09-01] MEDS: buPROPion SR 150 MG TABLET.ER PO SCH ×2 (08:13→20:59)
[2018-09-01] MEDS: HEPARIN SODIUM,PORCINE 5,000 UNIT/ML 1 ML VIAL SQ SCH ×2 (08:15→20:59)
[2018-09-01] MEDS ORDERED: IPRATROPIUM-ALBUTEROL 3 ML NEB INHALATION PRN (08:41)
[2018-09-01 09:00] LABS: African American GFR (CKD) >90 (>60 ml/min/1.73 sqM)
--- NOTE | 2018-09-01 09:57 | CDI ---
Documentation Clarification Form Date: 09/01/2018 9:45:15 AM From: Aleida Aleman CCS, CCDS Admit Date: 08/29/2018 4:33:00 PM Patient Name: Rohit Anaya Visit Number: [id number] Discharge Date: ATTENTION: The Clinical Documentation Specialists (CDI) and [facility] Coding Staff appreciate your assistance in clarifying documentation. Please respond to the clarification below the line at the bottom and electronically sign. The CDI & [facility] Coding staff will review the response and follow-up if needed. Please note: Queries are made part of the Legal Health Record. If you have any questions, please contact the author of this message via ITS. Dr. Radha Sommers: Patient presented with increased SOB & discolored sputum with a long history of COPD exacerbations, requires home O2 & multiple admissions for the same. History/Risk Factors: COPD on home O2 2Lnc, Pneumonia, former smoker. Clinical Indicators: Recently hospitalized in June, discharged home on Levaquin, presented to ER with above symptoms, diagnosed with acute exacerbation of COPD, acute on chronic hypoxic & hypercapnic respiratory failure, gram negative pneumonia & tachycardia. VS: T 98.2, P 125^, R 24-28^ (sob, labored), BP 132/67, PO 94 2Lnc LAB: WBC 16.5^, Neut 14.6^, glucose 136^, Lactic Acid 2.3^^. Blood cultures: pending final, Sputum final: rare gram neg bacilli Treatment: Blood, Urine & Sputum cultures, Albuterol INH, IV fluids rate 1000, IV Cefepime, IV Vancomycin, IV solumedrol, O2 In your professional opinion, please clarify if these findings signify one of the following conditions, whether the condition is POA, and cause, if known: o Sepsis ruled out o Sepsis ruled in, please specify organism if known. o Severe Sepsis o Other, please specify o Unable to determine Present on Admission o Yes o No (Last Revision: June 2017) MTDD
[2018-09-01 11:42] LABS: Glucose,Whole Blood 129 mg/dL (75-99)
[2018-09-01 16:56] LABS: Glucose,Whole Blood 203 mg/dL (75-99)
--- NOTE | 2018-09-01 18:30 | P.PN ---
Subjective Progress Note Date: 09/01/18 Principal diagnosis: Healthcare associated pneumonia, acute on chronic hypoxic and hypercapnic respiratory failure, a steroid dependent ventilator-dependent oxygen dependent severe COPD, recent tracheobronchitis, arrhythmia related to paroxysmal supraventricular tachycardia 09/01/2018, patient seen eval reexamined during the rounds breathing is still difficult with minimal activity causing significant shortness of breath, pain on the left side is slightly improved labs reviewed medications reviewed, and sputum studies noted no growth so far 08/31/2018, patient seen eval reexamined during the rounds cuff congestion shortness breath is essentially unchanged, but little activity causes significant desaturation and shortness of breath, I have advised to use the noninvasive ventilation and bring the machine from home patient feels that due to significant congestion and cough with sputum production at night cannot use the machine, IV is out patient is to get midline in the meantime we'll give by mouth Patient is a 63-year-old well-known to me with chronic respiratory failure and end-stage lung disease she is on home prednisone home oxygen and home ventilator based severe COPD she was enrolled in palliative care. 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 She states that her shortness of breath has gradually worsened since that time. she was evaluated by her nurse practitioner who did a chest x-ray and ordered her to be more short of breath and advised her to come emergency department. The patient does state that she has noticed that she's had a higher heart rate which is typical for her when her breathing is not under control. She's been using all of her medications and taking her antibiotics. She has chills. No chest pain. She does admit to a cough with sputum production that is either brown or yellow. She does note that she was hypoxic this morning in the low 80s on her normal oxygen. No other acute complaints. Objective - Vital Signs Vital signs: Vital Signs Temp 99.3 F 09/01/18 13:56 Pulse 92 09/01/18 13:56 Resp 20 09/01/18 16:00 BP 150/79 09/01/18 13:56 Pulse Ox 92 L 09/01/18 13:56 Intake & Output 08/31/18 09/01/18 09/01/18 18:59 06:59 18:59 Intake Total 650 1150 Output Total 2 Balance 648 1150 Intake: Intake, IV Titration 0 Amount Vancomycin 1,000 mg In 0 Sodium Chloride 0.9% 250 ml @ 125 mls/hr IVPB Q8H [facility] Rx#:[id number] cefTRIAXone 1 gm In 0 Sodium Chloride 0.9% 50 ml @ 100 mls/hr IVPB Q24HR [facility] Rx#:[id number] Oral 650 1150 Output: Stool 2 Other: Voiding Method Toilet Toilet # Voids 2 3 6 # Bowel Movements 0 - Exam - Constitutional General appearance: disheveled, mild distress, thin - EENT Eyes: anicteric sclerae, EOMI, PERRLA, dentition normal, normal appearance ENT: normal oropharynx Ears: bilateral: normal - Neck Neck: normal ROM Carotids: bilateral: upstroke normal, bruit absent Thyroid: bilateral: normal size - Respiratory Respiratory: bilateral: rhonchi, wheezing, prolonged expiration, negative: CTA, diminished, dullness, rales - Cardiovascular Rhythm: regular Heart sounds: normal: S1, S2 - Gastrointestinal General gastrointestinal: normal bowel sounds, soft - Integumentary Integumentary: normal, normal turgor - Neurologic Neurologic: CNII-XII intact - Musculoskeletal Musculoskeletal: gait normal, generalized weakness - Psychiatric Psychiatric: A&O x's 3, appropriate affect, intact judgment & insight - Labs CBC & Chem 7: 08/30/18 06:49 09/01/18 08:21 Labs: Abnormal Lab Results - Last 24 Hours (Table) 08/31/18 09/01/18 09/01/18 Range/Units 20:28 11:34 16:43 POC Glucose (mg/dL) 140 H 129 H 203 H (75-99) mg/dL Microbiology - Last 24 Hours (Table) 08/29/18 12:57 Blood Culture - Preliminary Blood No Growth after 72 hours Assessment and Plan Assessment: Healthcare associated pneumonia Acute on chronic hypoxic respiratory failure Severe ventilator dependent COPD History of recent tracheobronchitis Arrhythmia related to paroxysmal supraventricular tachycardia Plan: Broad-spectrum antibiotics Breathing treatments IV steroids Resume and obtain home ventilator from home DVT and peptic ulcer disease prophylaxis Further recommendations pending plan of care as per clinical response of the patient Time with Patient: Greater than 30
[2018-09-01 20:48] LABS: Glucose,Whole Blood 135 mg/dL (75-99)
[2018-09-02] MEDS: VANCOMYCIN 1,000 MG in SODIUM CHLORIDE 0.9% 250 ML IVPB SCH ×3 (01:56→18:11)
[2018-09-02] MEDS: traMADol 50 MG TAB PO PRN ×2 (05:08→23:03)
[2018-09-02] MEDS: guaiFENesin SYRUP 100MG/5ML 200 MG/10 ML CUP PO PRN ×2 (05:08→23:03)
[2018-09-02] MEDS: methylPREDNISolone SOD SUCCI 40 MG/ML 1 ML VIAL IV SCH ×4 (05:15→22:11)
[2018-09-02] MEDS: BUDESONIDE 0.5 MG/2 ML NEBU INHALATION SCH ×2 (06:55→20:37)
[2018-09-02] MEDS: IPRATROPIUM-ALBUTEROL 3 ML NEB INHALATION SCH ×4 (06:55→20:37)
[2018-09-02] MEDS: FORMOTEROL FUMARATE 20 MCG/2 ML NEBU INHALATION SCH ×2 (06:55→20:37)
[2018-09-02 07:07] LABS: Glucose,Whole Blood 108 mg/dL (75-99)
[2018-09-02] MEDS: INSULIN ASPART (NovoLOG) 100 UNIT/ML VIAL SQ SCH ×4 (07:14→20:35)
[2018-09-02] MEDS: METOPROLOL TARTRATE 25 MG TAB PO SCH ×2 (07:41→19:37)
[2018-09-02] MEDS: ALPRAZolam 0.25 MG TAB PO SCH ×3 (07:41→20:36)
[2018-09-02] MEDS: AZITHROMYCIN 500 MG TAB PO SCH (07:41)
[2018-09-02] MEDS: LORATADINE 10 MG TAB PO SCH (07:41)
[2018-09-02] MEDS: PANTOPRAZOLE 40 MG TABLET PO SCH (07:41)
[2018-09-02] MEDS: HEPARIN SODIUM,PORCINE 5,000 UNIT/ML 1 ML VIAL SQ SCH ×3 (07:42→19:39)
[2018-09-02] MEDS: buPROPion SR 150 MG TABLET.ER PO SCH ×2 (07:42→19:37)
[2018-09-02] MEDS: SODIUM CHLORIDE 0.9% 1,000 ML IV SCH ×2 (07:44→17:41)
[2018-09-02 11:40] LABS: African American GFR (CKD) >90 (>60 ml/min/1.73 sqM)
[2018-09-02 12:09] LABS: Glucose,Whole Blood 93 mg/dL (75-99)
--- NOTE | 2018-09-02 16:40 | P.PN ---
Subjective Principal diagnosis: This is a continue present on a 63-year-old white female essentially admitted for exacerbation COPD. She has multiple exacerbations of the last year. She states significant frustration. No voiding difficulties otherwise stated. No sleep issues are pain elements noted. We have been having trouble with venous access. She is scheduled for ultrasound-guided central venous access today. We are slowly weaning off of methylprednisone due to her element of end- stage COPD. Objective - Vital Signs Vital signs: Vital Signs Temp 98.3 F 09/02/18 14:57 Pulse 84 09/02/18 16:23 Resp 18 09/02/18 15:06 BP 116/71 09/02/18 14:57 Pulse Ox 97 09/02/18 14:57 Intake & Output 09/01/18 09/02/18 09/02/18 18:59 06:59 18:59 Other: Voiding Method Toilet Toilet # Voids 2 2 3 # Bowel Movements 0 - Constitutional General appearance: Present: mild distress - EENT Eyes: Absent: abnormal pupil - Neck Neck: Absent: lymphadenopathy - Respiratory Respiratory: bilateral: diminished - Cardiovascular Rhythm: regular Heart sounds: normal: S1, S2 - Gastrointestinal General gastrointestinal: Present: scaphoid, soft. Absent: tenderness - Labs CBC & Chem 7: 08/30/18 06:49 09/02/18 09:29 Labs: Abnormal Lab Results - Last 24 Hours (Table) 09/01/18 09/01/18 09/02/18 Range/Units 16:43 20:47 07:05 POC Glucose (mg/dL) 203 H 135 H 108 H (75-99) mg/dL Microbiology - Last 24 Hours (Table) 08/29/18 12:57 Blood Culture - Preliminary Blood No Growth after 96 hours Assessment and Plan (1) COPD (chronic obstructive pulmonary disease) Current Visit: No Status: Acute Code(s): J44.9 - CHRONIC OBSTRUCTIVE PULMONARY DISEASE, UNSPECIFIED SNOMED Code(s): 98676714 Plan: Continue current regimen of treatment. Appreciate pulmonary input. Wean slowly off of steroids. See orders otherwise. Prognosis is guarded secondary to her end-stage element.
[2018-09-02] MEDS ORDERED: VANCOMYCIN TROUGH DUE 1 EACH MISC MISCELLANE ONE (17:00)
--- NOTE | 2018-09-02 17:04 | P.PN ---
Subjective Progress Note Date: 09/02/18 Principal diagnosis: Healthcare associated pneumonia, acute on chronic hypoxic and hypercapnic respiratory failure, a steroid dependent ventilator-dependent oxygen dependent severe COPD, recent tracheobronchitis, arrhythmia related to paroxysmal supraventricular tachycardia 09/02/2018, patient seen eval reexamined during the rounds, overall respiratory stress status is not much changed pain on the left side does improve 09/01/2018, patient seen eval reexamined during the rounds breathing is still difficult with minimal activity causing significant shortness of breath, pain on the left side is slightly improved labs reviewed medications reviewed, and sputum studies noted no growth so far 08/31/2018, patient seen eval reexamined during the rounds cuff congestion shortness breath is essentially unchanged, but little activity causes significant desaturation and shortness of breath, I have advised to use the noninvasive ventilation and bring the machine from home patient feels that due to significant congestion and cough with sputum production at night cannot use the machine, IV is out patient is to get midline in the meantime we'll give by mouth Patient is a 63-year-old well-known to me with chronic respiratory failure and end-stage lung disease she is on home prednisone home oxygen and home ventilator based severe COPD she was enrolled in palliative care. 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 She states that her shortness of breath has gradually worsened since that time. she was evaluated by her nurse practitioner who did a chest x-ray and ordered her to be more short of breath and advised her to come emergency department. The patient does state that she has noticed that she's had a higher heart rate which is typical for her when her breathing is not under control. She's been using all of her medications and taking her antibiotics. She has chills. No chest pain. She does admit to a cough with sputum product ion that is either brown or yellow. She does note that she was hypoxic this morning in the low 80s on her normal oxygen. No other acute complaints. Objective - Vital Signs Vital signs: Vital Signs Temp 98.3 F 09/02/18 14:57 Pulse 84 09/02/18 16:23 Resp 18 09/02/18 15:06 BP 116/71 09/02/18 14:57 Pulse Ox 97 09/02/18 14:57 Intake & Output 09/01/18 09/02/18 09/02/18 18:59 06:59 18:59 Other: Voiding Method Toilet Toilet # Voids 2 2 3 # Bowel Movements 0 - Exam - Constitutional General appearance: disheveled, mild distress, thin - EENT Eyes: anicteric sclerae, EOMI, PERRLA, dentition normal, normal appearance ENT: normal oropharynx Ears: bilateral: normal - Neck Neck: normal ROM Carotids: bilateral: upstroke normal, bruit absent Thyroid: bilateral: normal size - Respiratory Respiratory: bilateral: rhonchi, wheezing, prolonged expiration, negative: CTA, diminished, dullness, rales - Cardiovascular Rhythm: regular Heart sounds: normal: S1, S2 - Gastrointestinal General gastrointestinal: normal bowel sounds, soft - Integumentary Integumentary: normal, normal turgor - Neurologic Neurologic: CNII-XII intact - Musculoskeletal Musculoskeletal: gait normal, generalized weakness - Psychiatric Psychiatric: A&O x's 3, appropriate affect, intact judgment & insight - Labs CBC & Chem 7: 08/30/18 06:49 09/02/18 09:29 Labs: Abnormal Lab Results - Last 24 Hours (Table) 09/01/18 09/02/18 Range/Units 20:47 07:05 POC Glucose (mg/dL) 135 H 108 H (75-99) mg/dL Microbiology - Last 24 Hours (Table) 08/29/18 12:57 Blood Culture - Preliminary Blood No Growth after 96 hours Assessment and Plan Assessment: Left-sided pneumonia Acute on chronic hypoxic respiratory failure Severe ventilator dependent COPD History of recent tracheobronchitis Arrhythmia related to paroxysmal supraventricular tachycardia Plan: Broad-spectrum antibiotics Breathing treatments IV steroids Resume and obtain home ventilator from home DVT and peptic ulcer disease prophylaxis Further recommendations pending plan of care as per clinical response of the p atient Time with Patient: Greater than 30
[2018-09-02 17:26] LABS: Glucose,Whole Blood 131 mg/dL (75-99)
[2018-09-02] MEDS: VANCOMYCIN 750 MG in SODIUM CHLORIDE 0.9% 250 ML IVPB SCH (19:36)
[2018-09-02 20:26] LABS: Glucose,Whole Blood 191 mg/dL (75-99)
[2018-09-03] MEDS: SODIUM CHLORIDE 0.9% 1,000 ML IV SCH ×3 (03:49→23:51)
[2018-09-03] MEDS: VANCOMYCIN 750 MG in SODIUM CHLORIDE 0.9% 250 ML IVPB SCH ×3 (03:51→21:04)
[2018-09-03] MEDS: methylPREDNISolone SOD SUCCI 40 MG/ML 1 ML VIAL IV SCH ×3 (05:06→23:49)
[2018-09-03 07:02] LABS: Glucose,Whole Blood 108 mg/dL (75-99)
[2018-09-03] MEDS: INSULIN ASPART (NovoLOG) 100 UNIT/ML VIAL SQ SCH ×4 (07:21→21:08)
[2018-09-03] MEDS: AZITHROMYCIN 500 MG TAB PO SCH (07:22)
[2018-09-03] MEDS: buPROPion SR 150 MG TABLET.ER PO SCH ×2 (07:23→21:04)
[2018-09-03] MEDS: ALPRAZolam 0.25 MG TAB PO SCH ×3 (07:23→21:04)
[2018-09-03] MEDS: METOPROLOL TARTRATE 25 MG TAB PO SCH ×2 (07:23→21:04)
[2018-09-03] MEDS: LORATADINE 10 MG TAB PO SCH (07:23)
[2018-09-03] MEDS: PANTOPRAZOLE 40 MG TABLET PO SCH (07:23)
[2018-09-03] MEDS: HEPARIN SODIUM,PORCINE 5,000 UNIT/ML 1 ML VIAL SQ SCH ×2 (07:31→21:09)
--- NOTE | 2018-09-03 08:18 | P.PN ---
Subjective Principal diagnosis: This is a continue present on a 63-year-old white female essentially admitted for exacerbation COPD. She has multiple exacerbations of the last year. She states significant frustration. No voiding difficulties otherwise stated. No sleep issues are pain elements noted. We have been having trouble with venous access. She is scheduled for ultrasound-guided central venous access today. We are slowly weaning off of methylprednisone due to her element of end- stage COPD. Otherwise, we will wean steroid todayl Objective - Vital Signs Vital signs: Vital Signs Temp 98.0 F 09/03/18 05:50 Pulse 80 09/03/18 05:50 Resp 20 09/03/18 05:50 BP 156/93 09/03/18 05:50 Pulse Ox 99 09/03/18 05:50 Intake & Output 09/02/18 09/03/18 09/03/18 18:59 06:59 18:59 Other: Voiding Method Toilet # Voids 3 3 - Constitutional General appearance: Present: average body habitus - EENT Eyes: Absent: abnormal pupil - Neck Neck: Absent: lymphadenopathy - Respiratory Respiratory: bilateral: diminished - Cardiovascular Rhythm: regular Heart sounds: normal: S1, S2 Abnormal Heart Sounds: Absent: S3 Gallop - Gastrointestinal General gastrointestinal: Present: soft. Absent: tenderness - Labs CBC & Chem 7: 08/30/18 06:49 09/02/18 09:29 Labs: Abnormal Lab Results - Last 24 Hours (Table) 09/02/18 09/02/18 09/03/18 Range/Units 17:23 20:25 06:56 POC Glucose (mg/dL) 131 H 191 H 108 H (75-99) mg/dL Microbiology - Last 24 Hours (Table) 08/29/18 12:57 Blood Culture - Preliminary Blood No Growth after 96 hours Assessment and Plan (1) COPD (chronic obstructive pulmonary disease) Current Visit: No Status: Acute Code(s): J44.9 - CHRONIC OBSTRUCTIVE PULMONARY DISEASE, UNSPECIFIED SNOMED Code(s): 48210557 Plan: Wean steroid dosing. Anticipate discharge in next 24-48 hours.
[2018-09-03] MEDS: guaiFENesin SYRUP 100MG/5ML 200 MG/10 ML CUP PO PRN ×2 (08:23→21:08)
[2018-09-03] MEDS: FORMOTEROL FUMARATE 20 MCG/2 ML NEBU INHALATION SCH ×2 (08:32→19:01)
[2018-09-03] MEDS: BUDESONIDE 0.5 MG/2 ML NEBU INHALATION SCH ×2 (08:32→19:01)
[2018-09-03] MEDS: IPRATROPIUM-ALBUTEROL 3 ML NEB INHALATION SCH ×4 (08:32→19:01)
[2018-09-03 10:21] LABS: African American GFR (CKD) >90 (>60 ml/min/1.73 sqM)
[2018-09-03 11:58] LABS: Glucose,Whole Blood 185 mg/dL (75-99)
[2018-09-03 17:10] LABS: Glucose,Whole Blood 83 mg/dL (75-99)
[2018-09-03 20:29] LABS: Glucose,Whole Blood 196 mg/dL (75-99)
[2018-09-03] MEDS: traMADol 50 MG TAB PO PRN (21:08)
[2018-09-04] MEDS: VANCOMYCIN 750 MG in SODIUM CHLORIDE 0.9% 250 ML IVPB SCH ×2 (04:33→10:35)
[2018-09-04 06:46] LABS: Glucose,Whole Blood 107 mg/dL (75-99)
[2018-09-04] MEDS: INSULIN ASPART (NovoLOG) 100 UNIT/ML VIAL SQ SCH ×2 (06:46→11:38)
[2018-09-04] MEDS: IPRATROPIUM-ALBUTEROL 3 ML NEB INHALATION SCH ×2 (07:11→10:58)
[2018-09-04] MEDS: BUDESONIDE 0.5 MG/2 ML NEBU INHALATION SCH (07:11)
[2018-09-04] MEDS: FORMOTEROL FUMARATE 20 MCG/2 ML NEBU INHALATION SCH (07:11)
[2018-09-04] MEDS: ALPRAZolam 0.25 MG TAB PO SCH (07:25)
[2018-09-04] MEDS: buPROPion SR 150 MG TABLET.ER PO SCH (07:25)
[2018-09-04] MEDS: guaiFENesin SYRUP 100MG/5ML 200 MG/10 ML CUP PO PRN (07:25)
[2018-09-04] MEDS: methylPREDNISolone SOD SUCCI 40 MG/ML 1 ML VIAL IV SCH (07:26)
[2018-09-04] MEDS: AZITHROMYCIN 500 MG TAB PO SCH (07:26)
[2018-09-04] MEDS: LORATADINE 10 MG TAB PO SCH (07:26)
[2018-09-04] MEDS: PANTOPRAZOLE 40 MG TABLET PO SCH (07:26)
[2018-09-04] MEDS: METOPROLOL TARTRATE 25 MG TAB PO SCH (07:26)
[2018-09-04] MEDS: traMADol 50 MG TAB PO PRN (07:35)
--- NOTE | 2018-09-04 08:03 | P.DS ---
Providers Date of admission: 08/29/18 16:33 Attending physician: Kurtis Piña Consults: 08/29/18 16:35 Consult Physician Routine Consulting Provider: Cayden Huang Consult Reason/Comments: Pneumonia Do you want consulting provider notified?: Already Contacted Primary care physician: Kurtis Piña - Discharge Diagnosis(es) (1) COPD (chronic obstructive pulmonary disease) Current Visit: No Status: Acute Hospital Course: This discharge summary 63-year-old white female essentially admitted for re- exacerbation of acute COPD. The patient was discharged after significant steroid taper. The patient has somewhat of a poor prognosis secondary to her end-stage COPD. But she is now been stabilized for discharge. Once cleared by pulmonology she'll follow-up with me in about a week. Patient Condition at Discharge: Stable Plan - Discharge Summary Discharge Rx Participant: No New Discharge Prescriptions: New Ipratropium-Albuterol Nebulize [Duoneb 0.5 mg-3 mg/3 ml Soln] 3 ml INHALATION RT-Q2H PRN ampul.neb PRN Reason: Shortness Of Breath Or Wheezing Azithromycin [Zithromax] 500 mg PO DAILY #3 tab predniSONE 20 mg PO BID #14 tab Continue Budesonide [Pulmicort] 0.5 mg INHALATION RT-BID nebu Arformoterol Tartrate [Brovana] 15 mcg INHALATION RT-BID Albuterol Inhaler [Ventolin Hfa Inhaler] 2 puff INHALATION RT-QID PRN PRN Reason: Shortness Of Breath Metoprolol Tartrate 25 mg PO DAILY Pantoprazole [Protonix] 40 mg PO AC-BRKFST #30 tablet. ALPRAZolam [Xanax] 0.25 mg PO QID #120 tablet rOPINIRole HCL [Requip] 0.5 mg PO HS Umeclidinium Brm/Vilanterol Tr [Anoro Ellipta 62.5-25 Mcg INH] 1 puff INHALATION RT-DAILY Albuterol Sulfate [Proair Hfa] 1 - 2 puff INHALATION RT-Q6H PRN PRN Reason: Shortness Of Breath buPROPion HCL [Wellbutrin SR] 150 mg PO BID Levofloxacin 750 mg PO DAILY 7 Days tablet traMADol HCl [Ultram] 50 mg PO QID PRN #120 tab PRN Reason: Pain Discharge Medication List Budesonide [Pulmicort] 0.5 mg INHALATION RT-BID nebu 12/17/14 [Rx] Arformoterol Tartrate [Brovana] 15 mcg INHALATION RT-BID 04/14/15 [History] Albuterol Inhaler [Ventolin Hfa Inhaler] 2 puff INHALATION RT-QID PRN 09/03/16 [History] Metoprolol Tartrate 25 mg PO DAILY 09/03/16 [History] Pantoprazole [Protonix] 40 mg PO AC-BRKFST #30 tablet. 06/15/17 [Rx] ALPRAZolam [Xanax] 0.25 mg PO QID #120 tablet 07/04/17 [Rx] rOPINIRole HCL [Requip] 0.5 mg PO HS 12/18/17 [History] Albuterol Sulfate [Proair Hfa] 1 - 2 puff INHALATION RT-Q6H PRN 07/04/18 [History] Umeclidinium Brm/Vilanterol Tr [Anoro Ellipta 62.5-25 Mcg INH] 1 puff INHALATION RT-DAILY 07/04/18 [History] buPROPion HCL [Wellbutrin SR] 150 mg PO BID 07/04/18 [History] Azithromycin [Zithromax] 500 mg PO DAILY #3 tab 09/04/18 [Rx] Ipratropium-Albuterol Nebulize [Duoneb 0.5 mg-3 mg/3 ml Soln] 3 ml INHALATION RT-Q2H PRN ampul.neb 09/04/18 [Rx] Levofloxacin 750 mg PO DAILY 7 Days tablet 09/04/18 [Rx] predniSONE 20 mg PO BID #14 tab 09/04/18 [Rx] traMADol HCl [Ultram] 50 mg PO QID PRN #120 tab 09/04/18 [Rx] Activity/Diet/Wound Care/Special Instructions: [facility] was sent a referral for after discharge. If you have any questions please contact them at .
--- NOTE | 2018-09-04 08:10 | CDI ---
Documentation Clarification Form Date: 09/04/2018 7:54:06 AM From: Aleida VenturaAlemanFABIOLA monroe, CCDS Admit Date: 08/29/2018 4:33:00 PM Patient Name: Rohit Anaya Visit Number: [id number] Discharge Date: ATTENTION: The Clinical Documentation Specialists (CDI) and [facility] Coding Staff appreciate your assistance in clarifying documentation. Please respond to the clarification below the line at the bottom and electronically sign. The CDI & [facility] Coding staff will review the response and follow-up if needed. Please note: Queries are made part of the Legal Health Record. If you have any questions, please contact the author of this message via ITS. Dr. Kurtis Piña: Per the History & Physical: "Chronic obstructive pulmonary disease acute exacerbation with acute left lower lobe pneumonia, possibly gram-negative." Per the subsequent progress notes, left side pneumonia is documented by the pulmonary managing consultant. History/Risk Factors: Severe end stage COPD, multiple admissions for COPD exacerbations & tracheobronchitis, history of previous pneumonia, chronic hypoxic respiratory failure on 2L nc at home & former smoker. Clinical Indicators: Presented with SOB & increased sputum for several weeks, previously enrolled in palliative care. Vital signs: P 125^, R 24 - 28^ (sob, labored),, BP 132/67, PO 94 2Lnc - 90 2Lnc. WBC: WBC 16.5^, Neut 14.6^, Glucose 136^, Lactic Acid 2.3^^. Blood gases: pH 7.46^, pO2 80*, HCO3 27^, Total CO2 28^ Blood cultures: preliminary no growth after 120 hours, Sputum culture: negative. RAD: CXR: New left basilar airspace disease, suspected unifocal pneumonia. Treatment: Albuterol INH, IV fl 1000, IV Cefepime, IV Vancomycin, IV Solumedrol, O2 2Lnc. Please clarify if you are treating the patient for any of the following suspected or possible conditions & was the condition present on admission or ruled out? Bacterial Pneumonia, specify causal organism (if known) Gram Negative Pneumonia, please specify organism if known or suspected Other bacteria (please specify) Viral Pneumonia, specify casual organism (if known) Healthcare Acquired Pneumonia/Pneumonia, unspecified Pneumonia ruled out Other, please specify Unable to determine (Last Revision: June 2017) MTDD
[2018-09-04] MEDS: SODIUM CHLORIDE 0.9% 1,000 ML IV SCH (09:07)
[2018-09-04] MEDS: HEPARIN SODIUM,PORCINE 5,000 UNIT/ML 1 ML VIAL SQ SCH (09:07)
[2018-09-04] MEDS ORDERED: VANCOMYCIN TROUGH DUE 1 EACH MISC MISCELLANE ONE (11:00)
[2018-09-04 11:33] LABS: Glucose,Whole Blood 100 mg/dL (75-99)
[2018-09-04 11:52] LABS: African American GFR (CKD) >90 (>60 ml/min/1.73 sqM)
[2018-09-04 13:36] VITALS: BP 138/78; PULSE 112; RESP 16; TEMP 97.1
[2018-09-04 14:05] VITALS: BMI 23.6
--- NOTE | 2018-09-05 16:06 | P.PN ---
Subjective Progress Note Date: 09/03/18 Principal diagnosis: Healthcare associated pneumonia, acute on chronic hypoxic and hypercapnic respiratory failure, a steroid dependent ventilator-dependent oxygen dependent severe COPD, recent tracheobronchitis, arrhythmia related to paroxysmal supraventricular tachycardia 09/03/2018, patient seen eval reexamined during the rounds overall doing better respiratory status improved patient is probably better to be discharged later on today 09/02/2018, patient seen eval reexamined during the rounds, overall respiratory stress status is not much changed pain on the left side does improve 09/01/2018, patient seen eval reexamined during the rounds breathing is still difficult with minimal activity causing significant shortness of breath, pain on the left side is slightly improved labs reviewed medications reviewed, and sputum studies noted no growth so far 08/31/2018, patient seen eval reexamined during the rounds cuff congestion shortness breath is essentially unchanged, but little activity causes significant desaturation and shortness of breath, I have advised to use the noninvasive ventilation and bring the machine from home patient feels that due to significant congestion and cough with sputum production at night cannot use the machine, IV is out patient is to get midline in the meantime we'll give by mouth Patient is a 63-year-old well-known to me with chronic respiratory failure and end-stage lung disease she is on home prednisone home oxygen and home ventilator based severe COPD she was enrolled in palliative care. 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 She states that her shortness of breath has gradually worsened since that time. she was evaluated by her nurse practitioner who did a chest x-ray and ordered her to be more short of breath and advised her to come emergency department. The patient does state that she has noticed that she's had a higher heart rate which is typical for her when her breathing is not under control. She's been using all of her medications and taking her antibiotics. She has chills. No chest pain. She does admit to a cough with sputum production that is either brown or yellow. She does note that she was hypoxic this morning in the low 80s on her normal oxygen. No other acute complaints. Objective - Vital Signs Vital signs: Vital Signs Temp 97.9 F 09/03/18 14:24 Pulse 80 09/03/18 19:27 Resp 18 09/03/18 19:27 BP 116/62 09/03/18 14:24 Pulse Ox 99 09/03/18 15:12 Intake & Output 09/03/18 09/03/18 09/04/18 06:59 18:59 06:59 Output Total 1 Balance -1 Output: Stool 1 Other: Voiding Method Toilet # Voids 3 3 - Exam - Constitutional General appearance: disheveled, mild distress, thin - EENT Eyes: anicteric sclerae, EOMI, PERRLA, dentition normal, normal appearance ENT: normal oropharynx Ears: bilateral: normal - Neck Neck: normal ROM Carotids: bilateral: upstroke normal, bruit absent Thyroid: bilateral: normal size - Respiratory Respiratory: bilateral: rhonchi, wheezing, prolonged expiration, negative: CTA, diminished, dullness, rales - Cardiovascular Rhythm: regular Heart sounds: normal: S1, S2 - Gastrointestinal General gastrointestinal: normal bowel sounds, soft - Integumentary Integumentary: normal, normal turgor - Neurologic Neurologic: CNII-XII intact - Musculoskeletal Musculoskeletal: gait normal, generalized weakness - Psychiatric Psychiatric: A&O x's 3, appropriate affect, intact judgment & insight - Labs CBC & Chem 7: 08/30/18 06:49 09/04/18 11:04 Labs: Abnormal Lab Results - Last 24 Hours (Table) 09/02/18 09/03/18 09/03/18 Range/Units 20:25 06:56 11:42 POC Glucose (mg/dL) 191 H 108 H 185 H (75-99) mg/dL Microbiology - Last 24 Hours (Table) 08/29/18 12:57 Blood Culture - Preliminary Blood No Growth after 120 hours Assessment and Plan Assessment: Left-sided pneumonia Acute on chronic hypoxic respiratory failure Severe ventilator dependent COPD History of recent tracheobronchitis Arrhythmia related to paroxysmal supraventricular tachycardia Plan: Broad-spectrum antibiotics, can be changed to by mouth Breathing treatments IV steroids can be changed to by mouth Resume and obtain home ventilator from home DVT and peptic ulcer disease prophylaxis Further recommendations pending plan of care as per clinical response of the patient Time with Patient: Greater than 30
== END 2018-09-04 15:24 | disposition home health service (06) | DRG 177 ==
LOC: EC 12:29 → 3NMEDONC 16:33 → 4MS4W 08-31 08:07
PROVIDERS: ADMIT Family Medicine; ATTEND Family Medicine
PROC: 05HC33Z Insertion of Infusion Device into Left Basilic Vein, Percutaneous Approach (ICD-10-PCS; principal; 2018-09-01 09:00)
DX: J15.8 Pneumonia due to other specified bacteria (principal); J96.21 Acute and chronic respiratory failure with hypoxia; J96.22 Acute and chronic respiratory failure with hypercapnia; I47.1 Supraventricular tachycardia; J44.0 Chronic obstructive pulmonary disease with (acute) lower respiratory infection; J44.1 Chronic obstructive pulmonary disease with (acute) exacerbation; Z99.11 Dependence on respirator [ventilator] status; Z87.891 Personal history of nicotine dependence; Y95 Nosocomial condition; Z51.5 Encounter for palliative care; F41.9 Anxiety disorder, unspecified; Z79.52 Long term (current) use of systemic steroids; Z79.899 Other long term (current) drug therapy; Z80.0 Family history of malignant neoplasm of digestive organs; Z80.52 Family history of malignant neoplasm of bladder; Z82.49 Family history of ischemic heart disease and other diseases of the circulatory system; Z87.01 Personal history of pneumonia (recurrent); Z99.81 Dependence on supplemental oxygen; Z88.0 Allergy status to penicillin; Z88.8 Allergy status to other drugs, medicaments and biological substances; Z80.8 Family history of malignant neoplasm of other organs or systems; Z79.2 Long term (current) use of antibiotics
CPT/HCPCS: 36410; 36415; 36600; 71046; 76937; 80048; 80053; 80202; 81003; 82553; 82565; 82805; 83605; 84484; 85025; 85610; 85730; 87040; 87070; 87086; 87205; 87502; 93005; 94640; 94760; 96361; 96365; 99285

== ENCOUNTER 2018-10-14 21:12 | Emergency (ER) | payer BC ==
[2018-10-14] MEDS ORDERED: MORPHINE SULFATE 2 MG/ML SYRINGE IM STA (22:00)
[2018-10-14] MEDS ORDERED: LIDOCAINE 1% INJ 10MG/ML (20 ML MDV) SQ ONE (22:00)
[2018-10-14 22:01] VITALS: BP 136/63; PULSE 88; RESP 18; TEMP 99.4
[2018-10-14] MEDS ORDERED: CEPHALEXIN 500MG STARTER PACK 4 CAP BTL PO STA (23:25)
--- NOTE | 2018-10-14 23:25 | ED ---
Wound/Laceration HPI - General Chief Complaint: Wound/Laceration Stated Complaint: Leg laceration Time Seen by Provider: 10/14/18 21:25 Source: patient Mode of arrival: wheelchair Limitations: physical limitation - History of Present Illness Initial Comments: 63-year-old female presenting today for chief complaint of left posterior leg skin tear. Patient states that she was walking in her home with an oxygen take fell behind her carrying the skin of the posterior left leg. Patient states that the bleeding has been controlled but she thought it might need repair with sutures. Patient denies any numbness tingling or loss sensation of lights she denies falling trauma to the left back. Patient states that she is able to fully range at the left lower extremity is no limitations. Review of systems negative. - Related Data Home Medications Medication Instructions Recorded Confirmed Arformoterol Tartrate [Brovana] 15 mcg INHALATION RT-BID 04/14/15 08/29/18 Albuterol Inhaler [Ventolin Hfa 2 puff INHALATION RT-QID PRN 09/03/16 08/29/18 Inhaler] Metoprolol Tartrate 25 mg PO DAILY 09/03/16 08/29/18 rOPINIRole HCL [Requip] 0.5 mg PO HS 12/18/17 08/29/18 Albuterol Sulfate [Proair Hfa] 1 - 2 puff INHALATION RT-Q6H PRN 07/04/18 08/29/18 Umeclidinium Brm/Vilanterol Tr 1 puff INHALATION RT-DAILY 07/04/18 08/29/18 [Anoro Ellipta 62.5-25 Mcg INH] buPROPion HCL [Wellbutrin SR] 150 mg PO BID 07/04/18 08/29/18 Previous Rx's Medication Instructions Recorded Budesonide [Pulmicort] 0.5 mg INHALATION RT-BID nebu 12/17/14 Pantoprazole [Protonix] 40 mg PO LIZZETH-BONNIE #30 tablet. 06/15/17 ALPRAZolam [Xanax] 0.25 mg PO QID #120 tablet 07/04/17 Azithromycin [Zithromax] 500 mg PO DAILY #3 tab 09/04/18 Ipratropium-Albuterol Nebulize 3 ml INHALATION RT-Q2H PRN 09/04/18 [Duoneb 0.5 mg-3 mg/3 ml Soln] ampul.neb Levofloxacin 750 mg PO DAILY 7 Days tablet 09/04/18 predniSONE 20 mg PO BID #14 tab 09/04/18 traMADol HCl [Ultram] 50 mg PO QID PRN #120 tab 09/04/18 Cephalexin [Keflex] 500 mg PO Q8HR 7 Days #21 cap 10/14/18 Allergies Allergy/AdvReac Type Severity Reaction Status Date / Time montelukast [From Singulair] Allergy Itching Verified 08/29/18 13:07 Penicillins Allergy Rash/Hives Verified 08/29/18 13:07 Review of Systems ROS Statement: Those systems with pertinent positive or pertinent negative responses have been documented in the HPI. ROS Other: All systems not noted in ROS Statement are negative. Past Medical History Past Medical History: COPD, Osteoarthritis (OA), Pneumonia Additional Past Medical History / Comment(s): HOME 02 2 LITERS N/C, EDENTULOUS, previous spine fracture did pt no brace worn. [employer] HISTORY: She has no history of STDs. 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 History of Any Multi-Drug Resistant Organisms: None Reported Past Surgical History: Appendectomy Additional Past Surgical History / Comment(s): LASER EYE SX, lt breast bx-neg. Previous colonoscopy done prior to 1999. Past Anesthesia/Blood Transfusion Reactions: No Reported Reaction Past Psychological History: Anxiety Smoking Status: Former smoker Past Alcohol Use History: None Reported Past Drug Use History: None Reported - Past Family History Mother Family Medical History: Cancer Additional Family Medical History / Comment(s): breast/BLADDER CA Father Family Medical History: Cancer, Myocardial Infarction ([place]) Additional Family Medical History / Comment(s): BRAIN TUMORS. Grandfather had colon cancer. General Exam - General Exam Comments Initial Comments: General: The patient is awake and alert, in no distress, and does not appear acutely ill. Eye: Pupils are equal, round and reactive to light, extra-ocular movements are intact. No nystagmus. There is normal conjunctiva bilaterally. No signs of icterus. Ears, nose, mouth and throat: There are moist mucous membranes and no oral lesions. Neck: The neck is supple, there is no tenderness or JVD. Cardiovascular: There is a regular rate and rhythm. No murmur, rub or gallop is appreciated. Respiratory: Lungs are clear to auscultation, respirations are non-labored, breath sounds are equal. No wheezes, stridor, rales, or rhonchi. Musculoskeletal: Normal ROM, no tenderness. Strength 5/5. Sensation intact. DP pulses equal bilaterally 2+. Patient is able to dorsiflex and plantar flex with full strength of the left lower extremity without difficulty. No noted weakness. Neurological: A&O x 3. CN II-XII intact, There are no obvious motor or sensory deficits. Coordination appears grossly intact. Speech is normal. Skin: Skin is warm and dry and no rashes or lesions are noted. v shaped skin tear, with exposure of achilles tendon sheeth, no laceration into sheath. adipose exposed, no foreign body. bleeding controlled. total length 15cm. Psychiatric: Cooperative, appropriate mood & affect, normal judgment. Limitations: physical limitation Course Vital Signs 10/14/18 21:54 Temperature 99.4 F Pulse Rate 88 Respiratory 18 Rate Blood Pressure 136/63 O2 Sat by Pulse 94 L Oximetry Procedures - Laceration Laceration #1 Consent Obtained: verbal consent Indication: laceration Site: lower extremity Size (cm): 15 Description: flap, irregular Depth: simple, single layer Anesthetic Used: lidocaine 1% Anesthesia Technique: local infiltration Amount (mls): 5 Pre-repair: wound explored, irrigated extensively, deep structures intact Size of Sutures: 5-0 Number of Sutures: 17 Technique: simple, interrupted Patient Tolerated Procedure: well, no complications Additional Comments: Wound was extensively explored irrigated and cleansed with iodine prior to closure. No evidence of Achilles tendon rupture. There is no cut into the sheath. Medical Decision Making - Medical Decision Making Well-appearing 63 year female presenting for skin tear of the left posterior leg 15 cm in total is 17 sutures were placed for skin flap repair. Patient neurovascularly intact. Full strength with dorsiflexio and plantarflexion examination. Patient able to weight-bear. Patient placed on antibiotics. Return parameters were discussed at length as well signs of infection. Wound care discussed. At this time feel patient is stable for discharge with outpatient primary care follow-up for wound check. The patient develops any weakness in the left lower extremity or decrease in range of motion she is to immediate return to the emergency department Disposition Clinical Impression: Laceration of left leg, Skin tear Disposition: HOME SELF-CARE Condition: Good Instructions (If sedation given, give patient instructions): Care For Your Stitches (ED), Laceration (ED) Additional Instructions: Please use medication as discussed. Please follow-up for suture removal in 10 days. Please return to emergency room if the symptoms increase or worsen or for any other concerns. Prescriptions: Cephalexin [Keflex] 500 mg PO Q8HR 7 Days #21 cap Is patient prescribed a controlled substance at d/c from ED?: No Referrals: Kurtis Piña MD [Primary Care Provider] - 1-2 days Time of Disposition: 23:20
[2018-10-14] MEDS ORDERED: ACET/COD 300 MG/30 MG STARTER PACK 6 TAB BTL PO STA (23:26)
== END 2018-10-14 23:37 | disposition home or self-care (01) ==
LOC: EC 21:12
DX: S81.812A Laceration without foreign body, left lower leg, initial encounter (principal); J44.9 Chronic obstructive pulmonary disease, unspecified; Z79.899 Other long term (current) drug therapy; Z88.0 Allergy status to penicillin; Z88.8 Allergy status to other drugs, medicaments and biological substances; Z87.891 Personal history of nicotine dependence; W20.8XXA Other cause of strike by thrown, projected or falling object, initial encounter; Y93.01 Activity, walking, marching and hiking; Y92.009 Unspecified place in unspecified non-institutional (private) residence as the place of occurrence of the external cause
CPT/HCPCS: 99282; 12005; 96372; J2001; J2270

== ENCOUNTER → 2018-12-31 | Outpatient (CLI) | payer BC ==
[2018-12-31 08:36] LABS: Basophils # (A) 0.1 k/uL (0-0.2); Basophils % (A) 1 %; Eosinophils % (A) 0 %; HCT 45.2 % (34.0-46.0); HGB 14.2 gm/dL (11.4-16.0); Lymphocytes # (A) 1.1 k/uL (1.0-4.8); Lymphocytes % (A) 15 %; MCH 30.1 pg (25.0-35.0); MCHC 31.4 g/dL (31.0-37.0); MCV 95.8 fL (80.0-100.0); Mean Platelet Volume 7.8; Monocytes # (A) 0.3 k/uL (0-1.0); Monocytes % (A) 4 %; Neutrophils # (A) 5.8 k/uL (1.3-7.7); Neutrophils % (A) 78 %; Platelet Count 239 k/uL (150-450); RBC 4.72 m/uL (3.80-5.40); RDW 13.7 % (11.5-15.5); WBC 7.4 k/uL (3.8-10.6)
[2018-12-31 10:20] LABS: Erythrocyte Sedimentation Rate 4 mm/hr (0-20)
[2018-12-31 16:57] LABS: ALT 14 U/L (8-44); AST 17 U/L (13-35); African American GFR (CKD) 68.9 (60.0-200.0); Albumin/Globulin Ratio 2.75 (1.60-3.17); Alkaline Phosphatase 49 U/L (41-126); C Reactive Protein <0.4 mg/dL (0.0-0.8); Calcium 9.6 mg/dL (8.7-10.3); Carbon Dioxide 28.1 mmol/L (21.6-31.8); Chloride 103 mmol/L (96-109); Globulin 1.6 g/dL (1.6-3.3); Glucose 157 mg/dL (70-110); Potassium 4.1 mmol/L (3.5-5.5); Sodium 140 mmol/L (135-145); Total Bilirubin 0.3 mg/dL (0.3-1.2)
== END | disposition home or self-care (01) ==
LOC: LABWHC1 07:23
PROVIDERS: ATTEND Internal Medicine Infectious Disease
DX: J43.1 Panlobular emphysema (principal); S81.802A Unspecified open wound, left lower leg, initial encounter
CPT/HCPCS: 36415; 80053; 85025; 85652; 86140

== ENCOUNTER → 2019-01-06 | Outpatient (CLI) | payer BC ==
--- NOTE | 2019-01-06 10:14 | US ---
LOWER EXTREMITY VENOUS INSUFFICIENCY CLINICAL HISTORY: S81.204A OPEN WOUND LT LOWER LEG. SIDE PERFORMED: bilateral 1) Color flow is present and patency is documented in the following vessels. No DVT or SVT is noted . EIV Common Femoral Vein Deep Femoral Vein Femoral Vein Popliteal Vein Proximal Calf Veins Greater Saph Vein Upper Small Saph Vein 2) There is mild venous reflux noted at the following venous levels: Right EIV, CFV, DFV IMPRESSION: 1. No sonographic evidence of deep venous thrombosis nor superficial venous thrombosis in the visuali zed bilateral lower extremities. 2. Mild venous reflux is noted on the right within the external iliac vein, common femoral vein, and deep femoral vein.
== END | disposition home or self-care (01) ==
LOC: RADUSWWP 08:43
PROVIDERS: ATTEND Internal Medicine Infectious Disease
DX: I87.2 Venous insufficiency (chronic) (peripheral) (principal); J43.1 Panlobular emphysema; S81.802A Unspecified open wound, left lower leg, initial encounter
CPT/HCPCS: 93922; 93923; 93970